=== PATIENT | female | born 1945 | race African-American/Black ===

== ENCOUNTER 2017-11-22 18:18 | Inpatient (IN) | payer OTHER, MEDICAID ==
[~2017-11-22] VITALS: Ht 162.6 cm; Wt 122.5 kg
--- NOTE | 2017-11-22 18:38 | Emergency Room Report ---
History of Present Illness General Chief Complaint: Altered Level of Consciousness Source: Patient, EMS, Caregiver Present Illness HPI 72-year-old female presents with questionable altered mental status from home Caregiver states she is usually alert and oriented 3, earlier today she noted that she was more altered than usual States frequent urinary tract infections, has indwelling Barrios catheter patient Herself knows her name, birthdate and day of week She denies any pain Caregiver denies that patient has been vomiting, having diarrhea, or cough Allergies: Coded Allergies: SULFA (SULFONAMIDE ANTIBIOTICS) (Verified Allergy, Unknown, 11/22/17) Patient History Past Medical History: see triage record, old chart reviewed Past Surgical History: none Pertinent Family History: none Social History: Denies: smoking, alcohol use, drug use Now: No Immunizations: UTD Reviewed Nursing Documentation: PMH: Agreed, PSxH: Agreed Nursing Documentation-PMH Past Medical History: No History, Except For Hx Cardiac Problems: Yes - CHF Hx Diabetes: Yes Review of Systems All Other Systems: negative except mentioned in HPI Physical Exam Vital Signs Date Time Temp Pulse Resp B/P (MAP) Pulse Ox O2 Delivery O2 Flow Rate FiO2 11/22/17 18:14 100.9 143 20 176/106 95 Room Air 100.9 Sp02 EP Interpretation: reviewed, normal General Appearance: normal inspection, well appearing, no apparent distress, alert, GCS 15, non-toxic, obese Head: normocephalic, atraumatic Eyes: bilateral eye PERRL, bilateral eye EOMI ENT: normal ENT inspection, hearing grossly normal, normal pharynx, no angioedema, normal voice, TMs + canals normal, uvula midline, moist mucus membranes Neck: normal inspection, full range of motion, supple, thyroid normal, no meningismus, no bony tend Respiratory: normal inspection, lungs clear, normal breath sounds, no rhonchi, no respiratory distress, no retraction, no accessory muscle use, no wheezing, speaking full sentences Cardiovascular #1: regular rate, rhythm, no edema, no JVD, normal capillary refill Gastrointestinal: normal inspection, normal bowel sounds, non tender, soft, no mass, no peritonitis, non-distended, no guarding, no hernia, no pulsatile mass Genitourinary: no CVA tenderness, other - Indwelling Barrios, clear urine Musculoskeletal: normal inspection, back normal, normal range of motion, no calf tenderness, pelvis stable, Alba's Sign negative Neurologic: normal inspection, alert, oriented x3, responsive, 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, motor strength/tone normal, cerebellar normal, normal gait, speech normal Psychiatric: normal inspection, judgement/insight normal, mood/affect normal, no suicidal/homicidal ideation, no delusions Skin: normal inspection, normal color, no rash Lymphatic: normal inspection, no adenopathy Medical Decision Making Diagnostic Impression: Primary Impression: Altered level of consciousness Additional Impressions: Sepsis Qualified Codes: A41.9 - Sepsis, unspecified organism UTI (urinary tract infection) Qualified Codes: T83.511A - Infection and inflammatory reaction due to indwelling urethral catheter, initial encounter; N39.0 - Urinary tract infection , site not specified ER Course 72-year-old female with sepsis, tachycardia and fever Likely source is urine given indwelling catheter Barrios Empiric antibiotics given Blood and urine cultures are pending Labs: No leuks. H&h stable. Initial CMP hemolyzed, needs repeat, nitrite positive UTI Endorsed to Dr Quiroz, [facility] insurance Telemetry bed, 922pm EKG Diagnostic Results Rate: tachycardiac Rhythm: NSR ST Segments: no acute changes ASA given to the pt in ED: No Rhythm Strip Diag. Results EP Interpretation: yes Rate: 140 Rhythm: NSR, no PVC's, no ectopy Chest X-Ray Diagnostic Results Chest X-Ray Diagnostic Results : Chest X-Ray Ordered: Yes # of Views/Limited/Complete: 1 View Indication: Other - Sepsis EP Interpretation: Yes Interpretation: no consolidation, no effusion, no pneumothorax, no acute cardiopulmonary disease Impression: No acute disease Electronically Signed by: Dr Michi Garcia MD Last Vital Signs Date Time Temp Pulse Resp B/P (MAP) Pulse Ox O2 Delivery O2 Flow Rate FiO2 11/22/17 18:14 100.9 143 20 176/106 95 Room Air 100.9 Status: improved Disposition: ADMITTED INPATIENT Condition: Serious MICHI GARCIA M.D. Nov 22, 2017 18:38
[2017-11-22] MEDS ORDERED: Piperacillin/Tazobactam 3.375 GM in NS 110 ML IVPB ONE (18:45)
[2017-11-22] MEDS ORDERED: BACLOFEN10 MG ORAL (18:48)
[2017-11-22] MEDS ORDERED: TIZANIDINE HCL4 MG ORAL (18:48)
[2017-11-22] MEDS ORDERED: METFORMIN HCL500 M1 ORAL (18:48)
[2017-11-22] MEDS ORDERED: LOVASTATIN10 MG ORAL (18:48)
[2017-11-22] MEDS ORDERED: PRILOSEC2.5 MG ORAL (18:48)
[2017-11-22] MEDS ORDERED: FUROSEMIDE20 M1 ORAL (18:48)
[2017-11-22 19:30] VITALS: BP 181/73
[2017-11-22] MEDS ORDERED: Zosyn 3.375gm inj ONE (20:09)
[2017-11-22 20:11] LABS: HEMATOCRIT 49.6 % (37.0-47.0); HEMOGLOBIN 16.3 G/DL (12.0-16.0); MEAN CORPUSCULAR VOLUME 87 FL (80-99); PLATELET COUNT 193 K/UL (150-450); RED BLOOD COUNT 5.72 M/UL (4.20-5.40); WHITE BLOOD COUNT 7.4 K/UL (4.8-10.8)
[2017-11-22 20:54] LABS: APPEARANCE,URINE SLIGHTLY CLOUDY; BILIRUBIN, URINE NEGATIVE (NEGATIVE); COLOR,URINE YELLOW; GLUCOSE, URINE (UA) NEGATIVE (NEGATIVE); KETONES,URINE NEGATIVE (NEGATIVE); LEUKOCYTE ESTERASE ,URINE 3+ (NEGATIVE); NITRITE,URINE POSITIVE (NEGATIVE); PH,URINE 5 (4.5-8.0); PROTEIN,URINE 3+ (NEGATIVE); UROBILINOGEN,URINE 1 MG/DL (0.0-1.0)
[2017-11-22 21:13] VITALS: BP 110/57
[2017-11-22 22:13] VITALS: BP 99/49
[2017-11-22] MEDS ORDERED: Vancomycin 1.5 GM/D5W 250ML IVPB ONE (22:45)
[2017-11-22 23:05] VITALS: BP 90/60
[2017-11-22] MEDS: Acetaminophen 650 MG SUPP RECTAL PRN (23:26)
[2017-11-23 02:42] LABS: ANION GAP 11 mmol/L (5-15); BLOOD UREA NITROGEN 22 mg/dL (7-18); CALCIUM 8.4 MG/DL (8.5-10.1); CARBON DIOXIDE 24 MMOL/L (21-32); CHLORIDE 96 MMOL/L (98-107); CREATININE 1.2 MG/DL (0.55-1.30); POTASSIUM 3.6 MMOL/L (3.5-5.1); SODIUM 131 MMOL/L (136-145)
[2017-11-23 02:55] LABS: ALANINE AMINOTRANSFERASE 39 U/L (12-78); ALBUMIN/GLOBULIN RATIO 0.4 (1.0-2.7); ALKALINE PHOSPHATASE 155 U/L (46-116); ASPARTATE AMINO TRANSFERASE 36 U/L (15-37); CKMB < 0.5 NG/ML (0.0-3.6)
[2017-11-23 04:00] VITALS: BP 101/62
[2017-11-23] MEDS ORDERED: Zosyn 3.375gm inj ONE (05:59)
[2017-11-23] MEDS: Piperacillin/Tazobactam 3.375 GM in NS 110 ML IVPB SCH ×3 (06:09→21:56)
[2017-11-23 08:00] VITALS: BP 101/55
--- NOTE | 2017-11-23 10:27 | Diagnostic Imaging Report ---
. Indication: Shortness of breath Technique: One view of the chest Comparison: none Findings: Body habitus limits evaluation. There is equivocal retrocardiac consolidation. The remainder of the lungs and pleural spaces are clear. The heart size is upper limits of normal. The aorta is tortuous calcified Impression: Equivocal retrocardiac consolidation. Correlate with clinical findings No acute process otherwise
--- NOTE | 2017-11-23 10:45 | History & Physical ---
History and Physical History & Physicial dict AMS MS chr suprapubic cath, poss UTI T 102, 10-15 WBC in UA, normal WBC S tach, poss AMI plan abx cardiology, neuro called echo CT angio chest US abd re alk phos elevation Robb Quiroz MD Nov 23, 2017 10:45
[2017-11-23] MEDS: NovoLOG Insulin Flexpen SUBQ SCH ×3 (11:27→21:24)
[2017-11-23 12:00] VITALS: BP 128/74
[2017-11-23] MEDS: metFORMIN 500mg tab ORAL SCH ×2 (12:00→18:00)
--- NOTE | 2017-11-23 13:15 | Neurology Progress Note ---
Objective Physical Exam Last Vital Signs Date Time Temp Pulse Resp B/P (MAP) Pulse Ox O2 Delivery O2 Flow Rate FiO2 11/23/17 12:00 98.6 123 22 128/74 100 Nasal Cannula 3.0 98.6 11/23/17 11:20 32 Laboratory Tests Test 11/22/17 20:00 11/22/17 20:10 11/23/17 02:20 11/23/17 11:17 White Blood Count 7.4 K/UL (4.8-10.8) Red Blood Count 5.72 M/UL (4.20-5.40) H Hemoglobin 16.3 G/DL (12.0-16.0) H Hematocrit 49.6 % (37.0-47.0) H Mean Corpuscular Volume 87 FL (80-99) Mean Corpuscular Hemoglobin 28.5 PG (27.0-31.0) Mean Corpuscular Hemoglobin Concent 32.8 G/DL (32.0-36.0) Red Cell Distribution Width 14.0 % (11.6-14.8) Platelet Count 193 K/UL (150-450) Mean Platelet Volume 10.9 FL (6.5-10.1) H Neutrophils (%) (Auto) % (45.0-75.0) Lymphocytes (%) (Auto) % (20.0-45.0) Monocytes (%) (Auto) % (1.0-10.0) Eosinophils (%) (Auto) % (0.0-3.0) Basophils (%) (Auto) % (0.0-2.0) Differential Total Cells Counted 100 Neutrophils % (Manual) 64 % (45-75) Lymphocytes % (Manual) 13 % (20-45) L Monocytes % (Manual) 9 % (1-10) Eosinophils % (Manual) 0 % (0-3) Basophils % (Manual) 0 % (0-2) Band Neutrophils 14 % (0-8) H Platelet Estimate Adequate Platelet Morphology Normal Red Blood Cell Morphology Normal Urine Color Yellow Urine Appearance Slightly cloudy Urine pH 5 (4.5-8.0) Urine Specific Priddy 1.015 (1.005-1.035) Urine Protein 3+ (NEGATIVE) H Urine Glucose (UA) Negative (NEGATIVE) Urine Ketones Negative (NEGATIVE) Urine Occult Blood 5+ (NEGATIVE) H Urine Nitrite Positive (NEGATIVE) H Urine Bilirubin Negative (NEGATIVE) Urine Urobilinogen 1 MG/DL (0.0-1.0) H Urine Leukocyte Esterase 3+ (NEGATIVE) H Urine RBC 5-10 /HPF (0 - 2) H Urine WBC 10-15 /HPF (0 - 2) H Urine Squamous Epithelial Cells Few /LPF (NONE/OCC) Urine Amorphous Sediment Few /LPF (NONE) H Urine Bacteria Moderate /HPF (NONE) H Sodium Level 131 MMOL/L (136-145) L Potassium Level 3.6 MMOL/L (3.5-5.1) Chloride Level 96 MMOL/L (98-107) L Carbon Dioxide Level 24 MMOL/L (21-32) Anion Gap 11 mmol/L (5-15) Blood Urea Nitrogen 22 mg/dL (7-18) H Creatinine 1.2 MG/DL (0.55-1.30) Estimat Glomerular Filtration Rate 53.8 mL/min (>60) Glucose Level 215 MG/DL (74-106) H Calcium Level 8.4 MG/DL (8.5-10.1) L Total Bilirubin 1.0 MG/DL (0.2-1.0) Aspartate Amino Transf (AST/SGOT) 36 U/L (15-37) Alanine Aminotransferase (ALT/SGPT) 39 U/L (12-78) Alkaline Phosphatase 155 U/L (46-116) H Creatine Kinase MB < 0.5 NG/ML (0.0-3.6) Troponin I 0.024 ng/mL (0.000-0.056) Total Protein 7.0 G/DL (6.4-8.2) Albumin 2.0 G/DL (3.4-5.0) L Globulin 5.0 g/dL Albumin/Globulin Ratio 0.4 (1.0-2.7) L Arterial Blood pH 7.388 (7.350-7.450) Arterial Blood Partial Pressure CO2 42.7 mmHg (35.0-45.0) Arterial Blood Partial Pressure O2 88.5 mmHg (75.0-100.0) Arterial Blood HCO3 25.2 mmol/L (22.0-26.0) Arterial Blood Oxygen Saturation 95.9 % (92.0-98.0) Arterial Blood Base Excess 0 Juve Test Positive Test 3/20/18 12:05 Troponin I 0.231 ng/mL (0.000-0.056) Impression/Recommendations Problems: (1) Sepsis (2) Multiple sclerosis (3) Obesities, morbid (4) Tachycardia Status: unchanged Recommendations #[id number] WALDO AUGUST Nov 23, 2017 13:15
--- NOTE | 2017-11-23 14:19 | Diagnostic Imaging Report ---
Indication: Abnormal liver function tests and abnormal renal function tests Technique: Lugo-scale and duplex images of the upper abdomen were obtained Comparison: Findings: Gallbladder demonstrates a gallstone. Gallbladder wall is borderline thickened, measuring just over 3 mm thick, but the gallbladder is underdistended. Sonographic Montana's sign is negative. Common bile duct measures 5 mm in diameter. No intrahepatic biliary ductal dilatation. Liver demonstrates normal echogenicity, no focal abnormality. It is mildly enlarged. There is a 14 mm cyst in the inferior right hepatic lobe. Portal vein and hepatic veins are patent. Pancreas is unremarkable. Spleen is unremarkable. Left kidney measures 15 cm in length. Right kidney measures 12 cm length. Both kidneys demonstrate normal echogenicity. There is no hydronephrosis. Left kidney demonstrates a 9 mm upper pole cyst. Echogenic foci in the left renal sinus, stones versus artifacts . Abdominal aorta is partially obscured by bowel gas, visualized portions are non-aneurysmal . Impression: Cholelithiasis. Borderline thickened gallbladder wall, probably an artifact of under distention but the possibility of acute cholecystitis should be considered. Consider nuclear medicine hepatobiliary scanning for further evaluation if there is high clinical suspicion Negative for dilated ducts Borderline hepatomegaly Large left kidney, significance uncertain. Prominent left renal sinus echoes, could indicate stones versus artifacts Incidental finding of left renal cyst Note nonvisualization of portions of the abdominal aorta
[2017-11-23] MEDS ORDERED: Lidocaine 1% Plain 30 ml INJ ONE ×2 (14:45→15:15)
[2017-11-23] MEDS ORDERED: Heparin 2000 units/Ns 1000ml INJ ONE ×2 (14:45→15:15)
[2017-11-23 16:00] VITALS: BP 123/62
--- NOTE | 2017-11-23 16:43 | Diagnostic Imaging Report ---
Indications: Needs long-term IV access Technique: Procedure performed at bedside. Procedural timeout performed. Ultrasound confirms patent compressible left basilic vein. Total sterile technique, including sterile probe cover and sterile gel, sterile gloves, hand hygiene, hat, mask,, sterile gown, large sterile drape, and preparation with 2% chlorhexidine utilized. Local anesthesia with 1% lidocaine. Under real-time ultrasound guidance, puncture basilic vein using 21-gauge needle, passage 0.018 guidewire, exchange for 5 Albanian peel-away sheath. 5 Albanian Bard dual-lumen power PICC cut to 43 cm. It was inserted through the peel-away sheath. Peel-away sheath and guidewire removed. Catheter fixed to the skin. Both catheter ports aspirated and flushed. Patient tolerated procedure well, without immediate complication. Followup chest x-ray obtained, documents catheter tip position at the cavoatrial junction Impression: Successful bedside placement of left arm PICC under sonographic guidance, as described above.
--- NOTE | 2017-11-23 17:45 | History and Physical Report ---
DATE OF ADMISSION: 11/22/2017 HISTORY OF PRESENT ILLNESS: The patient is a 72-year-old woman who is admitted from home when the caregiver found her to be more lethargic than usual after changing her suprapubic catheter. She was seen in the emergency department and found to have a few white cells in the urine, she did have temperature to 102 degrees, and tachycardia. She was given antibiotics and admission was arranged. PAST MEDICAL HISTORY: This is limited, but records at [facility] were reviewed. She has history of multiple sclerosis and neurogenic bladder with chronic suprapubic catheter. She has morbid obesity, quadriplegia, hypertension, hyperlipidemia, diabetes type 2, colon polyps, and anemia. She had colonoscopy in 2013. She does not drink or smoke. ALLERGIES: Sulfonamides. MEDICATIONS: Baclofen, Lasix, lovastatin, metformin, omeprazole, and tizanidine. PHYSICAL EXAMINATION: GENERAL: The patient is lethargic and dysarthric. She is morbidly obese. VITAL SIGNS: Shows sinus tachycardia at 151, blood pressure is 90/60. HEENT: Head is normocephalic. NECK: No jugular venous distention. CHEST: Clear. CARDIAC: Rhythm is regular. Tachycardia. ABDOMEN: Soft and nontender. EXTREMITIES: No edema. GENITOURINARY: Suprapubic catheter is in place. SKIN: Shows crusting on the dependent areas. LABORATORY AND DIAGNOSTIC DATA: The hemogram shows white count is normal, hemoglobin is 16.3, and platelets are normal. Chemistry shows sodium 131, glucose 215, calcium 8.4, albumin 2.0, alkaline phosphatase 155. Urine shows 10 to 15 white cells with positive nitrites and occult blood. EKG shows sinus tachycardia and possible anterior NV. IMPRESSIONS: 1. Altered mental status with history of MS. 2. Fever and possible sepsis with few white cells in the urine and in a patient with chronic suprapubic catheter. 3. Multiple sclerosis. 4. Sinus tachycardia with abnormal EKG, possible acute NV. 5. Diabetes. 6. Hyponatremia. 7. Neurogenic bladder. 8. Hypertension. 9. Hyperlipidemia. PLAN: The patient will be seen by Cardiology. We will get serial troponins and an echocardiogram. Antibiotics will be continued. Neurology consultation will be requested. Robb Nolen M.D. DR: NICOLE JOB#: [id number] CC: Missy Landrum M.D. ; FAX#: [phone] ROBB NOLEN M.D.; FAX#: [phone]
--- NOTE | 2017-11-23 18:21 | Cardiology Report ---
APPROVED REPORT EXAM: Two-dimensional and M-mode echocardiogram with Doppler and color Doppler. INDICATION Tachycardia M-Mode DIMENSIONS IVSd1.1 (0.7-1.1cm)Left Atrium (MM)3.9 (1.6-4.0cm) LVDd4.8 (3.5-5.6cm)Aortic Root2.9 (2.0-3.7cm) PWd1.2 (0.7-1.1cm)Aortic Cusp Exc.1.7 (1.5-2.0cm) LVDs3.1 (2.5-4.0cm) PWs1.5 cm Normal left ventricular chamber size, systolic function and wall motion. Left ventricular ejection fraction estimated to be 60-65%. No evidence of left ventricular hypertrophy. Trivial posterior pericardial effusion. Mild Bi-atrial enlargement by 2D. Aortic vavle leaflets appear thickened with adequate cusp excursion. Thickened mitral valve leaflets with normal excursion. Mild mitral annulus and aortic root calcification. Pulmonic valve not well visualized. Normal tricuspid valve structure. IVC is normal in size minimal collapse with respiration indicate increased RA pressure. A color flow and spectral Doppler study was performed and revealed: No aortic regurgitation. No mitral regurgitation. Mitral diastolic velocities suggest reduced left ventricular relaxation c/w diastolic dysfunction grade 1. Moderate tricuspid regurgitation. Tricuspid systolic velocities suggests peak right ventricular systolic pressure of 45-50 mmHg Consistent with mild pulmonary hypertension.
[2017-11-23] MEDS ORDERED: Albuterol/Ipratropium 3ml neb HHN PRN (18:30)
--- NOTE | 2017-11-23 18:33 | Cardiology Report ---
APPROVED REPORT EKG Measurement Heart [id number] NC [id number] [id number] Sinus tachycardia Left axis deviation Possible Anterior infarct, age undetermined T wave abnormality, consider lateral ischemia Abnormal ECG
[2017-11-23 20:00] VITALS: BP 104/52
[2017-11-23] MEDS ORDERED: Dyna-Hex 2% Top Sol 2oz TOPIC SCH (20:00)
[2017-11-23] MEDS: Dyna-Hex 2% Top Sol 2oz TOPIC SCH (21:21)
[2017-11-23] MEDS: Heparin 5000 units/ml inj SUBQ SCH (21:22)
--- NOTE | 2017-11-23 23:15 | Consultation ---
DATE OF CONSULTATION: 11/23/2017 NEUROLOGICAL CONSULTATION CONSULTING PHYSICIAN: Leopoldo Lynne M.D. REQUESTING PHYSICIAN: Robb Quiroz M.D. HISTORY OF PRESENT ILLNESS: This is a 72-year-old female seen in neurological consultation to evaluate new onset of changes in mental status. It is known that the patient has many years' history of multiple sclerosis apparently end-stage and she is fully bedridden, but her baseline included also being alert and oriented x3, but this changed in the last day when she started to develop increasing confusion, suspected to have infection, and brought to this hospital. On admission, the patient was able to give her name, , and day of the week. Temperature 100.9 degrees, heart rate 143, and blood pressure 176/106. Imaging studies included chest x-ray revealing equivocal retrocardiac consolidation. Her lab work included CBC study with elevated RBC at 5.72, hemoglobin 16.3, hematocrit 49.6, and 14 bands. Urinalysis, 10 to 15 wbc's, 3+ leukocyte esterase, and 3+ protein. Her chemistry panel with sodium down to 121, chloride 96, BUN 22, and blood sugar 215. Calcium 8.4. Troponin initially normal and later elevated at 0.231. Albumin 2.0. Following admission until present, the patient was somewhat confused, disoriented, obtunded, although in the last few hours she became more awake. Diagnostic studies now included also 2D echocardiogram with no mural thrombi noted, left ventricular ejection fraction estimated at 60% to 65% without evidence of left ventricular hypertrophy. PAST MEDICAL HISTORY: The patient has history of chronic multiple sclerosis, bedridden, chronic suprapubic catheter with recurrent UTI, history of diabetes, morbid obesity, and CHF. MEDICATIONS: Treatment prior to admission included baclofen, furosemide, lovastatin, metformin, omeprazole, and Zanaflex. ALLERGIES: Sulfa drugs. FAMILY HISTORY: Unavailable. SOCIAL HISTORY: No evidence of alcohol or drug abuse. REVIEW OF SYMPTOMS: This was limited due to the patient's condition. She was indicating being weak, unable to move around. PHYSICAL EXAMINATION: GENERAL: This is a well-developed, morbidly obese female, not in acute distress. VITAL SIGNS: Heart rate now 123, blood pressure 122/74. HEENT: Head normocephalic. There is no evidence of trauma. Eyes, ears, and throat are clear. NECK: Supple. No meningeal signs. MUSCULOSKELETAL: Puffiness of both hands and feet. Peripheral pulses 1+ and symmetric. No deformities noted. MENTAL STATUS: The patient is alert. She is able to follow simple commands. Her speech is very dysarthric, very hard to understand, slow, limited verbal responses. CRANIAL NERVE II: Pupils are 3 mm, responding to light and accommodation. There is right eye exotropia. Extraocular movement of left was normal and on the right, inner aspect limitation. Fundi unable to visualize due to the patient's status. CRANIAL NERVE V: Normal corneal responses. CRANIAL NERVE VII: No facial asymmetry. CRANIAL NERVE VIII: Normal hearing. CRANIAL NERVES IX THROUGH XII: Tongue is in midline. Symmetric palate elevation. The patient reportedly able to eat without dysphagia. MOTOR EXAMINATION: Diffuse rigidity in all extremities with no spontaneous movement, there is some wiggling, able to wiggle hands and feet. Deep tendon reflexes depressed bilaterally. Plantar response is mute. SENSORY EXAMINATION: Normal to pin stimulation as she was responding to pin in both upper and lower extremities. IMPRESSION: 1. Multiple sclerosis, advanced. 2. Toxic metabolic encephalopathy due to underlying infection. 3. Morbid obesity. 4. Urosepsis. RECOMMENDATIONS: 1. The patient to continue with IV fluids and antibiotics. 2. Presence of sinus tachycardia will be addressed by Cardiology. 3. The patient to remain on her current treatment including muscle relaxants. She is not a candidate for any immunomodulation treatment. 4. For any signs of progression, we will need additional diagnostic studies including MRI of the brain with and without contrast to assess presence of acute demyelination. Thank you for allowing me to see this interesting patient in neurological consultation. Leopoldo Lynne M.D. DR: BISI JOB#: [id number] CC:
[2017-11-24] VITALS: BP 106/51
[2017-11-24] MEDS: Vancomycin 1250mg/D5W 250ml IVPB SCH ×2 (00:13→23:18)
--- NOTE | 2017-11-24 01:00 | Consultation ---
DATE OF CONSULTATION: 11/23/2017 CARDIOLOGY CONSULTATION CONSULTING PHYSICIAN: Tyler Harley M.D. REQUESTING PHYSICIAN: Robb Quiroz M.D. REASON FOR CONSULTATION: Hypotension and elevated troponin level. HISTORY OF PRESENT ILLNESS: This 72-year-old female lives at home with a caregiver. She has a suprapubic catheter that was being changed. Today, she was found to be increasingly withdrawn and lethargic from her baseline and brought to the emergency room. On arrival, she was febrile to 102 degrees with tachycardia noted and dropping blood pressure following presentation. Antibiotics, IV fluids, and hospitalization were initiated. The patient continued to have low range blood pressure readings as well as an elevated troponin level this morning. Historical data is limited from patient, however, records are reviewed from [facility] hospitalization previously. PAST MEDICAL HISTORY: Multiple sclerosis, neurogenic bladder with suprapubic catheter, quadriplegia, hypertension, hyperlipidemia, colon polyposis, chronic anemia, type 2 diabetes mellitus, and chronic kidney disease. MEDICATIONS: Prior to admission reviewed and reconciled. ALLERGIES: Sulfa. SOCIAL HISTORY: Not obtainable. FAMILY HISTORY: Not known. REVIEW OF SYSTEMS: Other than data noted above is not obtainable. PHYSICAL EXAMINATION: GENERAL: She is lethargic, dysarthric. She is moderately obese. VITAL SIGNS: In the emergency room, blood pressure 99/49 with heart rate 153, respiratory rate 24, and temperature of 102.2 degrees. Now, blood pressure 101/55, heart rate 121, respiratory rate 22, and temperature 98.1 degrees. Monitored rhythm is sinus tachycardia. Oxygen saturation on 3 liters nasal cannula 96% to 97%. HEENT: Normocephalic and atraumatic. Conjunctivae are pink. Oropharynx clear. Mucous membranes dry. NECK: Supple. No gross jugular venous distention. LUNGS: With clear breath sounds. Diminished at bases. CARDIAC: Regular rhythm. Rapid rate. Normal S1 and S2 with no murmur, rub or gallop. ABDOMEN: Soft, nontender, and obese. EXTREMITIES: Revealed no edema. Distal muscle atrophy is noted. Suprapubic catheter site is without any bleeding or drainage and there is some poor skin turgor noted. LABORATORY AND DIAGNOSTIC DATA: EKG, sinus tachycardia and poor R-wave progression, suggesting possible prior anterior infarction. Albumin is 2. Sodium 131, potassium 3.6, bicarbonate 24, BUN 22 and creatinine 1.2. Troponin is 0.024 in the emergency room. Repeat is 0.231 and third troponin is 0.429. White count 7.4 and hemoglobin 16.3. IMPRESSION: 1. Sepsis. 2. Toxic and metabolic encephalopathies. 3. Shock. 4. Advanced multiple sclerosis. 5. Acute myocardial ischemia and possible [id number] myocardial infarction, precipitated by hypoperfusion. 6. Severe protein-calorie malnutrition. 7. Neurogenic bladder with suprapubic catheter. PLAN: 1. Cardiac monitoring. 2. Serial troponins. 3. Broad-spectrum antibiotics. 4. Volume support. 5. DVT and stress ulcer prophylaxis. 6. Pressors if inadequate response to IV fluid challenges. 7. Anti-platelet therapy. 8. Consider beta-blockers once blood pressure parameters have stabilized. Tyler Harley M.D. DR: ELVIRA JOB#: [id number] CC:
[2017-11-24 04:00] VITALS: BP 120/61
[2017-11-24] MEDS: NovoLOG Insulin Flexpen SUBQ SCH ×4 (06:30→21:09)
[2017-11-24] MEDS: Piperacillin/Tazobactam 3.375 GM in NS 110 ML IVPB SCH ×3 (06:55→21:10)
[2017-11-24 08:00] VITALS: BP 123/50
[2017-11-24 08:03] LABS: HEMATOCRIT 32.5 % (37.0-47.0); MEAN CORPUSCULAR VOLUME 87 FL (80-99); PLATELET COUNT 116 K/UL (150-450); RED BLOOD COUNT 3.73 M/UL (4.20-5.40); RED CELL DISTRIBUTION WIDTH 14.2 % (11.6-14.8)
[2017-11-24 08:04] LABS: ALANINE AMINOTRANSFERASE 25 U/L (12-78); ALBUMIN 1.6 G/DL (3.4-5.0); ALBUMIN/GLOBULIN RATIO 0.4 (1.0-2.7); ALKALINE PHOSPHATASE 119 U/L (46-116); ANION GAP 10 mmol/L (5-15); ASPARTATE AMINO TRANSFERASE 23 U/L (15-37); BILIRUBIN,TOTAL 0.4 MG/DL (0.2-1.0); BLOOD UREA NITROGEN 21 mg/dL (7-18); CALCIUM 7.8 MG/DL (8.5-10.1); CARBON DIOXIDE 25 MMOL/L (21-32); CHLORIDE 97 MMOL/L (98-107); CREATININE 0.8 MG/DL (0.55-1.30); POTASSIUM 3.1 MMOL/L (3.5-5.1); SODIUM 132 MMOL/L (136-145)
[2017-11-24] MEDS: BETASERON SUBQ SCH ×2 (09:00→11:29)
--- NOTE | 2017-11-24 09:19 | Diagnostic Imaging Report ---
ndication: Shortness of breath Technique: IV administration nonionic contrast. Spiral acquisitions obtained from the lung bases to the lung apices. Multiplanar and 3-D reconstructions were generated. Total dose length product 1467.34 mGycm. CTDIvol(s) 49.39 mGy. Dose reduction achieved using automated exposure control Comparison: none Findings: There is considerable image degradation due to motion artifact. No definite intraluminal filling defects or other findings to suggest acute pulmonary embolus demonstrated, although evaluation for such is quite limited. There is no evidence of thoracic aortic aneurysm or dissection. Pulmonary arteries are somewhat ectatic but not frankly dilated. No right ventricular dilatation demonstrated. The lungs demonstrate bullous changes, predominantly of the upper lobes. There is near complete atelectasis of the left lower lobe. However, no definite airway obstructive lesion is demonstrated. Suspect that this is due to compression by pleural fluid and enlarged heart. There are small bilateral pleural effusions. Atelectatic changes of the posterior right upper lobe and minimal compressive atelectatic changes of right lung base are also noted. The heart is enlarged. No pericardial effusion. The esophagus is diffusely markedly dilated. Dilatation extends to the gastroesophageal junction, where there is a small sliding-type hiatal hernia. No evidence of obstructive lesion demonstrated. There is a left arm PICC in good position. No mediastinal or hilar mass or adenopathy. No axillary or chest wall mass or adenopathy. Visualized thyroid is unremarkable. The bones are unremarkable other than mild degenerative changes The included upper abdominal anatomy is grossly unremarkable. Impression: Limited exam, due to motion artifact. No evidence of gross large vessel central pulmonary embolus or the thoracic vascular pathology Bilateral pleural effusions Compressive atelectasis of most of the left lower lobe. There focal areas of atelectasis bilaterally. Evidence of bullous COPD Patulous fluid-filled esophagus without definite downstream obstructive lesion, dilatation possibly on the basis of age-related changes. Small hiatal hernia This agrees with the preliminary interpretation provided overnight by [facility] telerad[facility] service. The CT scanner at [facility] is accredited by the [employer] and the scans are performed using protocols designed to limit radiation exposure to as low as reasonably achievable to attain images of sufficient resolution adequate for diagnostic evaluation.
[2017-11-24] MEDS: Aspirin Baby 81mg ORAL SCH (09:39)
[2017-11-24] MEDS: Heparin 5000 units/ml inj SUBQ SCH ×2 (09:41→21:00)
[2017-11-24 12:00] VITALS: BP 125/52
--- NOTE | 2017-11-24 13:11 | Pulmonology Progress Note ---
Assessment/Plan Assessment/Plan 1. Altered mental status with history of MS. 2. Fever and possible sepsis with chronic suprapubic catheter. 3. Multiple sclerosis. 4. Sinus tachycardia with abnormal EKG, possible acute [place]. 5. Diabetes. 6. Hyponatremia. 7. Neurogenic bladder. 8. Hypertension. 9. Hyperlipidemia. HR better No PEs echo pending temps down cont abx BC neg; UC pdg Subjective ROS Limited/Unobtainable: Yes Allergies: Coded Allergies: SULFA (SULFONAMIDE ANTIBIOTICS) (Verified Allergy, Unknown, 11/22/17) Objective Last 24 Hour Vital Signs Date Time Temp Pulse Resp B/P (MAP) Pulse Ox O2 Delivery O2 Flow Rate FiO2 11/24/17 12:00 98.4 101 19 125/52 100 Nasal Cannula 3.0 98.4 11/24/17 08:00 101 11/24/17 08:00 98.1 19 123/50 99 Nasal Cannula 3.0 98.1 11/24/17 06:50 95 Nasal Cannula 3.0 32 11/24/17 06:50 Nasal Cannula 3.0 32 11/24/17 06:50 104 18 Nasal Cannula 3.0 32 11/24/17 04:00 98.1 105 24 120/61 95 Nasal Cannula 3.0 98.1 11/24/17 04:00 109 11/24/17 00:26 106 11/24/17 00:00 98.9 105 20 106/51 98 Nasal Cannula 3.0 98.9 11/23/17 20:00 93 Nasal Cannula 3.0 32 11/23/17 20:00 98.7 107 20 104/52 97 Nasal Cannula 3.0 98.7 11/23/17 20:00 Nasal Cannula 3.0 32 11/23/17 16:00 99.0 123 22 123/62 97 Nasal Cannula 3.0 99.0 11/23/17 15:32 117 Intake and Output 11/23/17 11/24/17 19:00 07:00 Intake Total 2020.0 ml Output Total 1450 ml 1000 ml Balance 570.0 ml -1000 ml Intake IV Total 2020.0 ml Output Urine Total 1450 ml 1000 ml General Appearance: no acute distress HEENT: atraumatic Respiratory/Chest: lungs clear Cardiovascular: tachycardia Microbiology Date/Time Source Procedure Growth Status 11/22/17 20:15 Blood Blood Culture - Preliminary NO GROWTH AFTER 24 HOURS Resulted 11/22/17 20:00 Blood Blood Culture - Preliminary NO GROWTH AFTER 24 HOURS Resulted 11/22/17 20:10 Urine,Clean Catch Urine Culture - Preliminary Gram Negative Bacillus 1 Resulted Laboratory Tests 11/23/17 20:00: Troponin I 0.429H 11/24/17 05:45: Troponin I 0.191H, White Blood Count 20.0#H, Red Blood Count 3.73L, Hemoglobin 11.0#L, Hematocrit 32.5#L, Mean Corpuscular Volume 87, Mean Corpuscular Hemoglobin 29.5, Mean Corpuscular Hemoglobin Concent 33.9, Red Cell Distribution Width 14.2, Platelet Count 116L, Mean Platelet Volume 11.0H, Neutrophils (%) (Auto) , Lymphocytes (%) (Auto) , Monocytes (%) (Auto) , Eosinophils (%) (Auto) , Basophils (%) (Auto) , Differential Total Cells Counted 100, Neutrophils % (Manual) 90H, Lymphocytes % (Manual) 8L, Monocytes % (Manual) 2, Eosinophils % (Manual) 0, Basophils % (Manual) 0, Band Neutrophils 0 , Platelet Estimate DecreasedL, Platelet Morphology Normal, Anisocytosis 1+, Sodium Level 132L, Potassium Level 3.1L, Chloride Level 97L, Carbon Dioxide Level 25, Anion Gap 10, Blood Urea Nitrogen 21H, Creatinine 0.8, Estimat Glomerular Filtration Rate > 60, Glucose Level 115#H, Calcium Level 7.8L, Total Bilirubin 0.4, Aspartate Amino Transf (AST/SGOT) 23, Alanine Aminotransferase ( ALT/SGPT) 25, Alkaline Phosphatase 119H, Total Protein 6.0L, Albumin 1.6L, Globulin 4.4, Albumin/Globulin Ratio 0.4L Current Medications Medications (Trade) Dose Ordered Sig/Mj Route PRN Reason Start Time Stop Time Status Last Admin Dose Admin Acetaminophen (Tylenol) 650 mg Q4H PRN RECTAL Mild Pain (Pain Scale 1-3) 11/22/17 22:30 12/22/17 22:29 11/22/17 23:26 Albuterol/ Ipratropium (Albuterol/ Ipratropium) 3 ml QIDPRN PRN HHN Shortness of Breath 11/23/17 18:30 11/28/17 18:29 Aspirin (ASA) 81 mg DAILY ORAL 11/24/17 09:00 12/24/17 08:59 11/24/17 09:39 Baclofen (Lioresal) 10 mg THREE TIMES A DAY ORAL 11/23/17 09:00 12/23/17 08:59 11/24/17 09:38 Chlorhexidine Gluconate (Lizzie-Hex 2%) 1 applic DAILY@2000 TOPIC 11/23/17 20:00 12/23/17 19:59 11/23/17 21:21 Dextrose (Dextrose 50%) STAT PRN IV Hypoglycemia 11/22/17 23:45 12/22/17 23:44 Heparin Sodium (Porcine) (Heparin 5000 units/ml) 5,000 units EVERY 12 HOURS SUBQ 11/23/17 21:00 12/23/17 20:59 11/24/17 09:41 Insulin Aspart (NovoLOG) BEFORE MEALS AND HS SUBQ 11/23/17 11:30 12/23/17 11:29 11/23/17 21:24 Metformin HCl (Glucophage) 500 mg BID ORAL 11/26/17 09:00 12/26/17 08:59 Ondansetron HCl (Zofran) 4 mg Q4HR PRN IVP Nausea & Vomiting 11/22/17 22:30 12/22/17 22:29 11/23/17 22:07 Patient Own Medication (Patient's Own Med) 1 ea QOD SUBQ 11/24/17 09:00 12/24/17 08:59 11/24/17 11:29 Piperacillin Sod/ Tazobactam Sod 3.375 gm/Sodium Chloride 110 ml @ 27.5 mls/hr EVERY 8 HOURS IVPB 11/23/17 06:00 11/28/17 05:59 11/24/17 06:55 Sodium Chloride 1,000 ml @ 150 mls/hr Q6H40M IV 11/22/17 22:30 12/22/17 22:29 11/24/17 07:50 Vancomycin HCl (Vanco rx to dose) 1 ea DAILY PRN MISC Per rx protocol 11/22/17 22:30 12/22/17 22:29 Vancomycin HCl/ Dextrose 250 ml @ 166.667 mls/hr Q24H IVPB 11/24/17 00:00 11/29/17 00:00 11/24/17 00:13 Robb Quiroz MD Nov 24, 2017 13:11
[2017-11-24 16:00] VITALS: BP 145/71
--- NOTE | 2017-11-24 17:01 | Cardiology Report ---
APPROVED REPORT EKG Measurement Heart [id number] CT [id number] Sinus tachycardia Otherwise normal ECG
[2017-11-24] MEDS: NS w/KCl 20mEq 1,000 ML IV SCH (17:33)
[2017-11-24 20:00] VITALS: BP 131/64
[2017-11-24] MEDS: Dyna-Hex 2% Top Sol 2oz TOPIC SCH (21:07)
[2017-11-25] VITALS: BP 111/47
--- NOTE | 2017-11-25 01:31 | Progress Note ---
DATE: 11/24/2017 CARDIOLOGY PROGRESS NOTE SUBJECTIVE: The patient is alert, interactive, and less withdrawn. Vitals, blood pressure 125/52, pulse 101, respirations 19, and afebrile. Monitor, sinus tachycardia. Diagnostic studies to date, CT angiogram of the chest negative for pulmonary emboli. Echocardiogram with normal ejection fraction, trace pericardial fluid, diastolic dysfunction, and moderate pulmonary hypertension with moderate tricuspid regurgitation. White count is 20, hemoglobin 11. Sodium 132, potassium 3.1, bicarbonate 25, BUN 21, and creatinine 0.8. Troponin is peaked at 0.429 and is now 0.174 with albumin 1.6. IMPRESSION: 1. Acute myocardial infarction precipitated by hypoperfusion due to septic shock. 2. Sepsis with shock, recovering. 3. Secondary sinus tachycardia. 4. Hypokalemia. 5. Multiple sclerosis with immobility. 6. Toxic and metabolic encephalopathy. 7. Severe protein-calorie malnutrition. 8. Neurogenic bladder with suprapubic catheter. PLAN: 1. Antibiotics. 2. Await cultures. 3. Continue cardiac monitoring. 4. Serial troponins. 5. Volume resuscitation by IV route. 6. Potassium replacement. 7. Beta-blockers once blood pressure parameters stabilize. 8. Anti-platelet therapy. 9. DVT prophylaxis. Tyler Harley M.D. DR: PACO JOB#: [id number] CC:
[2017-11-25] MEDS: NS w/KCl 20mEq 1,000 ML IV SCH ×2 (01:56→10:03)
[2017-11-25] MEDS: Acetaminophen 650 MG SUPP RECTAL PRN (02:02)
[2017-11-25 04:00] VITALS: BP 92/44
[2017-11-25] MEDS: Piperacillin/Tazobactam 3.375 GM in NS 110 ML IVPB SCH ×3 (05:23→22:00)
[2017-11-25] MEDS: NovoLOG Insulin Flexpen SUBQ SCH ×4 (05:40→20:28)
[2017-11-25 05:44] LABS: ANION GAP 7 mmol/L (5-15); BLOOD UREA NITROGEN 16 mg/dL (7-18); CALCIUM 8.5 MG/DL (8.5-10.1); CARBON DIOXIDE 29 MMOL/L (21-32); CHLORIDE 100 MMOL/L (98-107); CREATININE 0.7 MG/DL (0.55-1.30); POTASSIUM 3.7 MMOL/L (3.5-5.1); SODIUM 136 MMOL/L (136-145)
[2017-11-25 05:49] LABS: HEMATOCRIT 33.1 % (37.0-47.0); HEMOGLOBIN 11.2 G/DL (12.0-16.0); MEAN CORPUSCULAR VOLUME 88 FL (80-99); PLATELET COUNT 134 K/UL (150-450); RED BLOOD COUNT 3.76 M/UL (4.20-5.40); RED CELL DISTRIBUTION WIDTH 14.5 % (11.6-14.8); WHITE BLOOD COUNT 15.5 K/UL (4.8-10.8)
[2017-11-25 07:45] VITALS: BP 124/65
[2017-11-25] MEDS: Aspirin Baby 81mg ORAL SCH (10:00)
[2017-11-25] MEDS: Heparin 5000 units/ml inj SUBQ SCH ×2 (10:02→20:25)
[2017-11-25 12:01] VITALS: BP 125/72
--- NOTE | 2017-11-25 15:39 | Pulmonology Progress Note ---
Assessment/Plan Assessment/Plan 1. Altered mental status with history of MS. 2. Fever and possible sepsis with chronic suprapubic catheter. 3. Multiple sclerosis. 4. Sinus tachycardia with abnormal EKG, possible acute [place]. 5. Diabetes. 6. Hyponatremia. 7. Neurogenic bladder. 8. Hypertension. 9. Hyperlipidemia. more alert, responsive echo with normal ejection fraction, trace pericardial fluid, diastolic dysfunction, and moderate pulmonary hypertension with moderate tricuspid regurgitation. no fever; 4/ BC with GNR UC with e coli S Zosyn cont abx tried to call son and dtr x many with no luck so far disc w RN, cardiology Subjective Constitutional: Denies: fever, chills Respiratory: Denies: shortness of breath Allergies: Coded Allergies: SULFA (SULFONAMIDE ANTIBIOTICS) (Verified Allergy, Unknown, 11/22/17) Objective Last 24 Hour Vital Signs Date Time Temp Pulse Resp B/P (MAP) Pulse Ox O2 Delivery O2 Flow Rate FiO2 11/25/17 12:01 97.5 101 19 125/72 100 Nasal Cannula 3.0 97.5 11/25/17 12:00 96 11/25/17 07:45 98.2 103 20 124/65 97 Nasal Cannula 3.0 98.2 11/25/17 07:36 100 11/25/17 07:32 104 18 Nasal Cannula 3.0 32 11/25/17 07:31 98 Nasal Cannula 3.0 32 11/25/17 07:31 Nasal Cannula 3.0 32 11/25/17 04:00 110 11/25/17 04:00 98.2 100 19 92/44 98 Nasal Cannula 3.0 98.2 11/25/17 00:00 97.1 103 20 111/47 99 Nasal Cannula 3.0 97.1 11/25/17 00:00 109 11/24/17 20:00 116 11/24/17 20:00 98.4 114 19 131/64 96 Nasal Cannula 3.0 98.4 11/24/17 19:24 88 18 Nasal Cannula 3.0 32 11/24/17 19:24 Nasal Cannula 3.0 32 11/24/17 19:24 97 Nasal Cannula 3.0 32 11/24/17 16:00 110 11/24/17 16:00 97.6 117 21 145/71 97 Nasal Cannula 3.0 97.6 Intake and Output 11/24/17 11/25/17 19:00 07:00 Intake Total 1667.6 ml 2034.584 ml Output Total 450 ml 1000 ml Balance 1217.6 ml 1034.584 ml Intake Oral 300 ml IV Total 1667.6 ml 1734.584 ml Output Urine Total 450 ml 1000 ml # Voids 1 Objective morbidly obese General Appearance: no acute distress HEENT: normocephalic Respiratory/Chest: lungs clear Cardiovascular: normal rate Abdomen: soft, non tender Extremities: other - edema 1+ Microbiology Date/Time Source Procedure Growth Status 11/22/17 20:15 Blood Blood Culture - Preliminary Gram Negative Bacillus 1 Resulted 11/22/17 20:00 Blood Blood Culture - Preliminary Gram Negative Bacillus 1 Resulted 11/24/17 18:00 Urine,Suprapubic Urine Culture - Preliminary Gram Negative Bacillus 1 Resulted 11/22/17 20:10 Urine,Clean Catch Urine Culture - Final Escherichia Coli Complete 11/23/17 17:20 Sacral Wound Gram Stain - Final Resulted 11/23/17 17:20 Wound Culture - Preliminary Gram Negative Bacillus 1 Resulted Laboratory Tests 11/24/17 17:35: Troponin I 0.174H 11/25/17 04:00: Troponin I 0.127H, White Blood Count 15.5H, Red Blood Count 3.76L, Hemoglobin 11.2L, Hematocrit 33.1L, Mean Corpuscular Volume 88, Mean Corpuscular Hemoglobin 29.8, Mean Corpuscular Hemoglobin Concent 33.9, Red Cell Distribution Width 14.5, Platelet Count 134L, Mean Platelet Volume 10.0, Neutrophils (%) (Auto) , Lymphocytes (%) (Auto) , Monocytes (%) (Auto) , Eosinophils (%) (Auto) , Basophils (%) (Auto) , Differential Total Cells Counted 100, Neutrophils % (Manual) 88H, Lymphocytes % (Manual) 4L, Monocytes % (Manual) 6, Eosinophils % (Manual) 0, Basophils % (Manual) 0, Band Neutrophils 2 , Platelet Estimate DecreasedL, Platelet Morphology Normal, Zunilda Cells 1+, Schistocytes 1+, Sodium Level 136, Potassium Level 3.7, Chloride Level 100, Carbon Dioxide Level 29, Anion Gap 7, Blood Urea Nitrogen 16, Creatinine 0.7, Estimat Glomerular Filtration Rate > 60, Glucose Level 130H, Calcium Level 8.5 11/25/17 12:00: Troponin I 0.097H Current Medications Medications (Trade) Dose Ordered Sig/Mj Route PRN Reason Start Time Stop Time Status Last Admin Dose Admin Acetaminophen (Tylenol) 650 mg Q4H PRN RECTAL Mild Pain (Pain Scale 1-3) 11/22/17 22:30 12/22/17 22:29 11/25/17 02:02 Albuterol/ Ipratropium (Albuterol/ Ipratropium) 3 ml QIDPRN PRN HHN Shortness of Breath 11/23/17 18:30 11/28/17 18:29 Aspirin (ASA) 81 mg DAILY ORAL 11/24/17 09:00 12/24/17 08:59 11/25/17 10:00 Baclofen (Lioresal) 10 mg THREE TIMES A DAY ORAL 11/23/17 09:00 12/23/17 08:59 11/25/17 14:03 Chlorhexidine Gluconate (Lizzie-Hex 2%) 1 applic DAILY@2000 TOPIC 11/23/17 20:00 12/23/17 19:59 11/24/17 21:07 Dextrose (Dextrose 50%) STAT PRN IV Hypoglycemia 11/22/17 23:45 12/22/17 23:44 Heparin Sodium (Porcine) (Heparin 5000 units/ml) 5,000 units EVERY 12 HOURS SUBQ 11/23/17 21:00 12/23/17 20:59 11/25/17 10:02 Insulin Aspart (NovoLOG) BEFORE MEALS AND HS SUBQ 11/23/17 11:30 12/23/17 11:29 11/25/17 05:40 Metformin HCl (Glucophage) 500 mg BID ORAL 11/26/17 09:00 12/26/17 08:59 Ondansetron HCl (Zofran) 4 mg Q4HR PRN IVP Nausea & Vomiting 11/22/17 22:30 12/22/17 22:29 11/23/17 22:07 Patient Own Medication (Patient's Own Med) 1 ea QOD SUBQ 11/24/17 09:00 12/24/17 08:59 11/24/17 11:29 Piperacillin Sod/ Tazobactam Sod 3.375 gm/Sodium Chloride 110 ml @ 27.5 mls/hr EVERY 8 HOURS IVPB 11/23/17 06:00 11/28/17 05:59 11/25/17 14:13 Sodium Chloride 1,000 ml @ 75 mls/hr [id number] IV 11/25/17 18:00 12/25/17 17:59 Vancomycin HCl (Vanco rx to dose) 1 ea DAILY PRN MISC Per rx protocol 11/22/17 22:30 12/22/17 22:29 Vancomycin HCl/ Dextrose 250 ml @ 166.667 mls/hr Q24H IVPB 11/24/17 00:00 11/29/17 00:00 11/24/17 23:18 Robb uQiroz MD Nov 25, 2017 15:39
[2017-11-25 16:00] VITALS: BP 158/74
[2017-11-25] MEDS ORDERED: NS w/KCl 20mEq 1,000 ML IV SCH (18:00)
[2017-11-25 20:00] VITALS: BP 144/74
--- NOTE | 2017-11-25 20:16 | Wound Care Consultation ---
Wound Assessment Wound Assessment #1: Wound Number: 1 Wound Present on Admission: Yes New Wound: No Status Change of Wound: No Wound Location Body Site: other - Sacrococcygeal Wound Type: pressure ulcer Dony Test: Does not Dony Pressure Ulcer Stage: III - scattered Wound Thickness: Full Thickness Wound Length: 6.5 Wound Width: 5.5 Wound Depth: 0.2 Percent of Wound [place]/Red: 100 Wound Drainage Description: Serosanguineous Wound Drainage Amount: Moderate Wound Drainage Odor: None/Absent Tissue Surrounding Wound: full thickness scar tissue Wound General Appearance: Reddened, Draining Wound Assessment #2: Wound Number: 2 Wound Present on Admission: Yes New Wound: No Status Change of Wound: No Wound Location Body Site Modif: right Wound Location Body Site: heel Wound Type: pressure ulcer Dony Test: Does not Dony Pressure Ulcer Stage: Deep Tissue Injury Wound Thickness: Full Thickness Wound Length: 2.0 Wound Width: 2.0 Wound Depth: utd Percent of Wound Purple/Maroon: 100 Wound Drainage Amount: None Wound Drainage Odor: None/Absent Tissue Surrounding Wound: Intact Wound General Appearance: Reddened - purple/maroon Wound Comment #1 Sacrococcygeal area with scattered stage III pressure ulcer. Surrounding skin with full thickness scar tissue. At risk for further skin breakdown #2 Right heel DTI pressure ulcer Recommendation -Local wound care per protocol -Keep clean and dry -Offload both heels -Heel protector on both heels -Low air loss mattress -Optimize nutrition -Turn and reposition -Assess and f/u accordingly for any changes SHAILA ALBA RN Nov 25, 2017 20:16
[2017-11-25] MEDS: Dyna-Hex 2% Top Sol 2oz TOPIC SCH (20:19)
--- NOTE | 2017-11-25 23:31 | Progress Note ---
DATE: 11/25/2017 CARDIOLOGY PROGRESS NOTE SUBJECTIVE: The patient is more alert and interactive. Monitored rhythm, sinus. No respiratory distress. Blood cultures are positive with gram-negative rods. PHYSICAL EXAMINATION: VITAL SIGNS: Blood pressure 125/72, respirations 19, pulse 101, and afebrile. HEENT: Oropharynx clear. NECK: Supple. LUNGS: Clear. CARDIAC: Regular rhythm and rate. Normal S1, S2. No new murmur. ABDOMEN: Soft. EXTREMITIES: No edema. DIAGNOSTIC DATA: Echocardiogram as previously noted with moderate tricuspid regurgitation and pulmonary hypertension with normal ejection fraction. IMPRESSION: 1. Urinary tract infection with sepsis and bacteremia, suspected shock, recovering due to above. 2. Chronic suprapubic catheter. 3. Multiple sclerosis secondary sinus tachycardia. 4. Non-ST elevation myocardial infarction precipitated by hypoperfusion in the setting of septic shock. 5. Severe protein-calorie malnutrition. PLAN: 1. Await final cultures and antibiotics per Infectious Disease protection consultant. 2. Volume resuscitation adjusted. 3. Hold beta-blockers until more stable hemodynamics. 4. Continue anti-platelet therapy. 5. DVT prophylaxis. Missy Landrum JOB#: [id number] CC:
[2017-11-26] VITALS: BP 132/69
[2017-11-26 04:00] VITALS: BP 132/68
[2017-11-26 05:40] LABS: BASOPHILS % (AUTO) 1.1 % (0.0-2.0); EOSINOPHILS % (AUTO) 0.8 % (0.0-3.0); HEMATOCRIT 35.7 % (37.0-47.0); HEMOGLOBIN 11.6 G/DL (12.0-16.0); LYMPHOCYTES % (AUTO) 7.4 % (20.0-45.0); MEAN CORPUSCULAR VOLUME 88 FL (80-99); MONOCYTES % (AUTO) 9.3 % (1.0-10.0); NEUTROPHILS % (AUTO) 81.5 % (45.0-75.0); PLATELET COUNT 147 K/UL (150-450); RED BLOOD COUNT 4.07 M/UL (4.20-5.40); RED CELL DISTRIBUTION WIDTH 14.7 % (11.6-14.8); WHITE BLOOD COUNT 11.2 K/UL (4.8-10.8)
[2017-11-26 05:55] LABS: ALANINE AMINOTRANSFERASE 33 U/L (12-78); ALBUMIN 1.6 G/DL (3.4-5.0); ALBUMIN/GLOBULIN RATIO 0.4 (1.0-2.7); ALKALINE PHOSPHATASE 164 U/L (46-116); ANION GAP 4 mmol/L (5-15); ASPARTATE AMINO TRANSFERASE 39 U/L (15-37); BILIRUBIN,TOTAL 0.5 MG/DL (0.2-1.0); BLOOD UREA NITROGEN 14 mg/dL (7-18); CALCIUM 8.3 MG/DL (8.5-10.1); CARBON DIOXIDE 32 MMOL/L (21-32); CHLORIDE 103 MMOL/L (98-107); CREATININE 0.6 MG/DL (0.55-1.30); POTASSIUM 4.3 MMOL/L (3.5-5.1); SODIUM 139 MMOL/L (136-145)
[2017-11-26] MEDS: Piperacillin/Tazobactam 3.375 GM in NS 110 ML IVPB SCH ×3 (06:00→21:34)
[2017-11-26] MEDS: NovoLOG Insulin Flexpen SUBQ SCH ×4 (06:30→21:00)
[2017-11-26 08:00] VITALS: BP 140/71
[2017-11-26] MEDS: Aspirin Baby 81mg ORAL SCH (08:41)
[2017-11-26] MEDS: Heparin 5000 units/ml inj SUBQ SCH ×2 (08:42→21:35)
[2017-11-26] MEDS: metFORMIN 500mg tab ORAL SCH ×2 (08:42→17:44)
[2017-11-26] MEDS: BETASERON SUBQ SCH ×2 (09:00→12:02)
[2017-11-26 12:00] VITALS: BP 153/75
--- NOTE | 2017-11-26 14:25 | Pulmonology Progress Note ---
Assessment/Plan Assessment/Plan 1. Altered mental status with history of MS. 2. Fever and sepsis due to e coli bacteremia 3. Multiple sclerosis 4. Sinus tachycardia with abnormal EKG, possible acute [place]. 5. Diabetes. 6. Hyponatremia. 7. Neurogenic bladder with chronic suprapubic catheter 8. Hypertension. 9. Hyperlipidemia. Alert, responsive / BC with e coli UC with e coli S Zosyn cont abx disc w RN, [facility] plan mt home Mon Subjective Constitutional: Denies: fever Allergies: Coded Allergies: SULFA (SULFONAMIDE ANTIBIOTICS) (Verified Allergy, Unknown, 11/22/17) Objective Last 24 Hour Vital Signs Date Time Temp Pulse Resp B/P (MAP) Pulse Ox O2 Delivery O2 Flow Rate FiO2 11/26/17 08:00 100 11/26/17 08:00 98.2 104 18 140/71 98 Nasal Cannula 3.0 98.2 11/26/17 06:39 Nasal Cannula 3.0 32 11/26/17 06:39 93 18 Nasal Cannula 3.0 32 11/26/17 06:39 97 Nasal Cannula 3.0 32 11/26/17 04:00 98.9 105 18 132/68 98 Nasal Cannula 3.0 98.9 11/26/17 04:00 105 11/26/17 00:00 103 11/26/17 00:00 98.0 103 18 132/69 98 Nasal Cannula 3.0 98.0 11/25/17 20:00 98.0 102 20 144/74 97 Nasal Cannula 3.0 98.0 11/25/17 19:30 111 11/25/17 16:00 110 11/25/17 16:00 97.7 110 19 158/74 97 Nasal Cannula 3.0 97.7 Intake and Output 11/25/17 11/26/17 19:00 07:00 Intake Total 922.5 ml 110.0 ml Output Total 950 ml 1600 ml Balance -27.5 ml -1490.0 ml Intake Oral 590 ml IV Total 332.5 ml 110.0 ml Output Urine Total 950 ml 1600 ml Objective morbidly obese, suprapubic cath General Appearance: no acute distress HEENT: atraumatic Respiratory/Chest: lungs clear Cardiovascular: normal rate Abdomen: soft, non tender Microbiology Date/Time Source Procedure Growth Status 11/24/17 18:00 Urine,Suprapubic Urine Culture - Final Escherichia Coli Complete 11/23/17 17:20 Sacral Wound Gram Stain - Final Resulted 11/23/17 17:20 Wound Culture - Preliminary Proteus Mirabilis Staphylococcus Aureus Strep Species, Gamma-Hemolytic Resulted Laboratory Tests 11/25/17 20:08: Troponin I 0.085H 11/26/17 04:15: Troponin I 0.092H, White Blood Count 11.2H, Red Blood Count 4.07L, Hemoglobin 11.6L, Hematocrit 35.7L, Mean Corpuscular Volume 88, Mean Corpuscular Hemoglobin 28.4, Mean Corpuscular Hemoglobin Concent 32.4, Red Cell Distribution Width 14.7, Platelet Count 147L, Mean Platelet Volume 9.2, Neutrophils (%) (Auto) 81.5H, Lymphocytes (%) (Auto) 7.4L, Monocytes (%) (Auto) 9.3, Eosinophils (%) (Auto) 0.8, Basophils (%) (Auto) 1.1, Sodium Level 139, Potassium Level 4.3, Chloride Level 103, Carbon Dioxide Level 32, Anion Gap 4L, Blood Urea Nitrogen 14, Creatinine 0.6, Estimat Glomerular Filtration Rate > 60 , Glucose Level 122H, Calcium Level 8.3L, Magnesium Level 1.6L, Total Bilirubin 0.5, Aspartate Amino Transf (AST/SGOT) 39H, Alanine Aminotransferase (ALT/SGPT) 33, Alkaline Phosphatase 164H, Pro-B-Type Natriuretic Peptide 2635H, Total Protein 5.5L, Albumin 1.6L, Globulin 3.9, Albumin/Globulin Ratio 0.4L Current Medications Medications (Trade) Dose Ordered Sig/Mj Route PRN Reason Start Time Stop Time Status Last Admin Dose Admin Acetaminophen (Tylenol) 650 mg Q4H PRN RECTAL Mild Pain (Pain Scale 1-3) 11/22/17 22:30 12/22/17 22:29 11/25/17 02:02 Albuterol/ Ipratropium (Albuterol/ Ipratropium) 3 ml QIDPRN PRN HHN Shortness of Breath 11/23/17 18:30 11/28/17 18:29 Aspirin (ASA) 81 mg DAILY ORAL 11/24/17 09:00 12/24/17 08:59 11/26/17 08:41 Baclofen (Lioresal) 10 mg THREE TIMES A DAY ORAL 11/23/17 09:00 12/23/17 08:59 11/26/17 13:23 Chlorhexidine Gluconate (Lizzie-Hex 2%) 1 applic DAILY@2000 TOPIC 11/23/17 20:00 12/23/17 19:59 11/25/17 20:19 Dextrose (Dextrose 50%) STAT PRN IV Hypoglycemia 11/22/17 23:45 12/22/17 23:44 Heparin Sodium (Porcine) (Heparin 5000 units/ml) 5,000 units EVERY 12 HOURS SUBQ 11/23/17 21:00 12/23/17 20:59 11/26/17 08:42 Insulin Aspart (NovoLOG) BEFORE MEALS AND HS SUBQ 11/23/17 11:30 12/23/17 11:29 11/25/17 20:28 Magnesium Hydroxide (Mom) 30 ml DAILYPRN PRN ORAL Constipation 11/26/17 14:30 12/26/17 14:29 UNV Magnesium Oxide (Mag-Ox 400mg) 400 mg DAILY ORAL 11/26/17 14:30 12/26/17 14:29 UNV Metformin HCl (Glucophage) 500 mg BID ORAL 11/26/17 09:00 12/26/17 08:59 11/26/17 08:42 Ondansetron HCl (Zofran) 4 mg Q4HR PRN IVP Nausea & Vomiting 11/22/17 22:30 12/22/17 22:29 11/25/17 20:20 Patient Own Medication (Patient's Own Med) 1 ea QOD SUBQ 11/24/17 09:00 12/24/17 08:59 11/26/17 12:02 Piperacillin Sod/ Tazobactam Sod 3.375 gm/Sodium Chloride 110 ml @ 27.5 mls/hr EVERY 8 HOURS IVPB 11/23/17 06:00 11/28/17 05:59 11/26/17 14:00 Robb Quiroz MD Nov 26, 2017 14:25
[2017-11-26] MEDS ORDERED: Milk of Magnesia 30ml Ud ORAL PRN (14:30)
[2017-11-26] MEDS: Magnesium Oxide 400mg tab ORAL SCH (14:47)
[2017-11-26 16:00] VITALS: BP 158/75
[2017-11-26 20:00] VITALS: BP 158/82
[2017-11-26] MEDS: Dyna-Hex 2% Top Sol 2oz TOPIC SCH (21:33)
[2017-11-27] VITALS (7 sets, daily range): BP systolic 128–160; BP diastolic 68–106
--- NOTE | 2017-11-27 05:45 | Progress Note ---
DATE: 11/26/2017 CARDIOLOGY PROGRESS NOTE SUBJECTIVE: The patient is alert and responsive. She remains on IV antibiotics for E. coli urinary tract infection with bacteremia. OBJECTIVE: VITAL SIGNS: Blood pressure 140/70, pulse 104, respiratory rate 18, and afebrile. Monitor, sinus tachycardia. LUNGS: Bilateral breath sounds. No wheezing. HEART: Regular rhythm. Rapid rate. Normal S1, S2 with a fourth heart sound. ABDOMEN: Soft. EXTREMITIES: No edema. IMPRESSION: 1. Sepsis with shock, recovered. 2. Acute myocardial infarction, precipitated by hypoperfusion. 3. Multiple sclerosis with immobility. 4. Escherichia coli urinary tract infection with bacteremia. 5. Neurogenic bladder with suprapubic catheter. 6. Hypertensive heart disease. 7. Secondary sinus tachycardia. PLAN: IV antibiotics. Add beta-memo. Antiplatelet therapy. Maintain adequate hydration. Tyler Harley M.D. DR: David JOB#: [id number] CC:
[2017-11-27] MEDS: Piperacillin/Tazobactam 3.375 GM in NS 110 ML IVPB SCH ×2 (06:04→14:28)
[2017-11-27] MEDS: NovoLOG Insulin Flexpen SUBQ SCH ×4 (06:11→22:44)
[2017-11-27] MEDS: Magnesium Oxide 400mg tab ORAL SCH (08:51)
[2017-11-27] MEDS: Aspirin Baby 81mg ORAL SCH (08:51)
[2017-11-27] MEDS: metFORMIN 500mg tab ORAL SCH ×2 (08:52→18:38)
[2017-11-27] MEDS: Heparin 5000 units/ml inj SUBQ SCH ×2 (08:54→21:45)
[2017-11-27] MEDS ORDERED: Metoprolol Succinate XL 25mg tab ORAL SCH (09:00)
[2017-11-27] MEDS ORDERED: Fleet's Enema 133ml RECTAL ONE (10:30)
--- NOTE | 2017-11-27 15:31 | General Progress Note ---
Assessment/Plan Problem List: (1) Obstipation ICD Codes: K59.00 - Constipation, unspecified SNOMED: 585113565 (2) UTI (urinary tract infection) ICD Codes: N39.0 - Urinary tract infection, site not specified SNOMED: 01034570 Qualifiers: Qualified Codes: T83.511A - Infection and inflammatory reaction due to indwelling urethral catheter, initial encounter; N39.0 - Urinary tract infection , site not specified (3) Sepsis ICD Codes: A41.9 - Sepsis, unspecified organism SNOMED: 20035516 Qualifiers: Qualified Codes: A41.9 - Sepsis, unspecified organism (4) Altered level of consciousness ICD Codes: R40.4 - Transient alteration of awareness SNOMED: 2466345 (5) Tachycardia ICD Codes: R00.0 - Tachycardia, unspecified SNOMED: 1325145 (6) Multiple sclerosis ICD Codes: G35 - Multiple sclerosis SNOMED: 99325532 (7) Obesities, morbid ICD Codes: E66.01 - Morbid (severe) obesity due to excess calories SNOMED: 406152253, 12859980362805 Assessment/Plan continue hydration, iv antibiotics, laxatives Subjective Constitutional: Reports: weakness HEENT: Reports: no symptoms Cardiovascular: Reports: no symptoms Respiratory: Reports: no symptoms Gastrointestinal/Abdominal: Reports: constipated, poor appetite Neurologic/Psychiatric: Reports: pre-existing deficit Endocrine: Reports: no symptoms Hematologic/Lymphatic: Reports: no symptoms Allergies: Coded Allergies: SULFA (SULFONAMIDE ANTIBIOTICS) (Verified Allergy, Unknown, 11/22/17) Objective Last 24 Hour Vital Signs Date Time Temp Pulse Resp B/P (MAP) Pulse Ox O2 Delivery O2 Flow Rate FiO2 11/27/17 12:00 98.1 101 18 149/68 95 Nasal Cannula 3.0 98.1 11/27/17 11:50 105 11/27/17 09:31 Nasal Cannula 3.0 32 11/27/17 09:31 96 Nasal Cannula 3.0 32 11/27/17 09:31 88 18 Nasal Cannula 3.0 32 11/27/17 08:52 85 134/77 11/27/17 08:00 104 11/27/17 08:00 97.7 85 18 134/77 95 Nasal Cannula 3.0 97.7 11/27/17 04:00 98.7 68 20 128/73 97 Nasal Cannula 3.0 98.7 11/27/17 03:34 104 11/27/17 00:00 99.0 112 22 153/74 95 Nasal Cannula 3.0 99.0 11/27/17 00:00 111 11/26/17 20:00 98.9 110 20 158/82 95 Nasal Cannula 3.0 98.9 11/26/17 20:00 111 11/26/17 19:01 Nasal Cannula 3.0 32 11/26/17 19:01 92 18 Nasal Cannula 3.0 32 11/26/17 19:01 97 Nasal Cannula 3.0 32 11/26/17 16:30 108 11/26/17 16:00 98.2 112 21 158/75 95 Nasal Cannula 3.0 98.2 Intake and Output 11/26/17 11/27/17 19:00 07:00 Intake Total 1192.5 ml 321.7 ml Output Total 600 ml 900 ml Balance 592.5 ml -578.3 ml Intake Oral 1000 ml 200 ml IV Total 192.5 ml 121.7 ml Output Urine Total 600 ml 900 ml Height (Feet): 5 Height (Inches): 4.00 Weight (Pounds): 286 General Appearance: no apparent distress, morbidly obese EENT: other - ptosis os Neck: normal alignment Cardiovascular: normal rate, regular rhythm Respiratory/Chest: lungs clear Abdomen: non tender 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
[2017-11-27] MEDS ORDERED: Miralax 17gm pkt ORAL SCH (16:30)
[2017-11-27] MEDS ORDERED: 1/2NS w/KCl 20mEq 1000ml 1,000 ML IV SCH (16:30)
[2017-11-27] MEDS ORDERED: Acetaminophen 650 MG SUPP RECTAL PRN (20:30)
[2017-11-27] MEDS ORDERED: Milk of Magnesia 30ml Ud ORAL PRN (21:00)
[2017-11-27] MEDS ORDERED: Albuterol/Ipratropium 3ml neb HHN PRN (21:00)
[2017-11-27] MEDS: 1/2NS w/KCl 20mEq 1000ml 1,000 ML IV SCH (21:09)
[2017-11-27] MEDS: Dyna-Hex 2% Top Sol 2oz TOPIC SCH (21:42)
--- NOTE | 2017-11-27 22:00 | Progress Note ---
DATE: 11/27/2017 CARDIOLOGY PROGRESS NOTE SUBJECTIVE: The patient is awake, alert, interactive, verbally responsive. She has no specific complaints. PHYSICAL EXAMINATION: VITAL SIGNS: Blood pressure 149/68, pulse 101, respiratory rate 18, afebrile. NECK: Supple. LUNGS: Clear. CARDIAC: Regular rhythm. Rapid rate. Normal S1 and S2 with no new murmur. ABDOMEN: Soft. EXTREMITIES: No edema. LABORATORY AND DIAGNOSTIC DATA: No new lab studies today. IMPRESSION: 1. Urinary tract infection with sepsis. 2. Recovered shock. 3. Metabolic and toxic encephalopathy. 4. Severe protein-calorie malnutrition. 5. E. coli bacteremia. 6. Hypomagnesemia. 7. Chronic ischemic heart disease. 8. Acute myocardial ischemia. 9. Multiple sclerosis. PLAN: 1. Antimicrobials. 2. IV magnesium. 3. Titrate beta-memo and antihypertensives. 4. Antiplatelet therapy long-term. 5. DVT prophylaxis. 6. Followup laboratory studies ordered. Tyler Harley M.D. DR: Ricardo JOB#: [id number] CC:
[2017-11-27] MEDS: Piperacillin/Tazobactam 3.375 GM in D5W 110 ML IVPB SCH (22:21)
[2017-11-28] VITALS (9 sets, daily range): BP systolic 147–184; BP diastolic 84–102
[2017-11-28] MEDS: NovoLOG Insulin Flexpen SUBQ SCH ×4 (06:19→21:21)
[2017-11-28] MEDS: Piperacillin/Tazobactam 3.375 GM in D5W 110 ML IVPB SCH ×3 (06:58→22:44)
[2017-11-28 07:21] LABS: BASOPHILS % (AUTO) 2.4 % (0.0-2.0); EOSINOPHILS % (AUTO) 1.7 % (0.0-3.0); HEMATOCRIT 32.9 % (37.0-47.0); HEMOGLOBIN 10.9 G/DL (12.0-16.0); LYMPHOCYTES % (AUTO) 9.6 % (20.0-45.0); MEAN CORPUSCULAR VOLUME 88 FL (80-99); MONOCYTES % (AUTO) 12.7 % (1.0-10.0); NEUTROPHILS % (AUTO) 73.5 % (45.0-75.0); PLATELET COUNT 243 K/UL (150-450); RED BLOOD COUNT 3.72 M/UL (4.20-5.40); RED CELL DISTRIBUTION WIDTH 14.6 % (11.6-14.8); WHITE BLOOD COUNT 9.6 K/UL (4.8-10.8)
[2017-11-28 07:50] LABS: ALANINE AMINOTRANSFERASE 37 U/L (12-78); ALBUMIN 1.6 G/DL (3.4-5.0); ALBUMIN/GLOBULIN RATIO 0.3 (1.0-2.7); ALKALINE PHOSPHATASE 168 U/L (46-116); ANION GAP 4 mmol/L (5-15); ASPARTATE AMINO TRANSFERASE 46 U/L (15-37); BILIRUBIN,TOTAL 0.4 MG/DL (0.2-1.0); BLOOD UREA NITROGEN 10 mg/dL (7-18); CALCIUM 8.6 MG/DL (8.5-10.1); CARBON DIOXIDE 34 MMOL/L (21-32); CHLORIDE 103 MMOL/L (98-107); CREATININE 0.5 MG/DL (0.55-1.30); POTASSIUM 4.4 MMOL/L (3.5-5.1); SODIUM 141 MMOL/L (136-145)
[2017-11-28] MEDS: Aspirin Baby 81mg ORAL SCH (08:24)
[2017-11-28] MEDS: Magnesium Oxide 400mg tab ORAL SCH (08:25)
[2017-11-28] MEDS: Miralax 17gm pkt ORAL SCH ×3 (08:25→17:18)
[2017-11-28] MEDS: metFORMIN 500mg tab ORAL SCH ×2 (08:25→17:21)
[2017-11-28] MEDS: BETASERON SUBQ SCH (08:26)
[2017-11-28] MEDS: Heparin 5000 units/ml inj SUBQ SCH ×2 (08:27→21:26)
[2017-11-28] MEDS ORDERED: Metoprolol Succinate XL 25mg tab ORAL SCH (09:00)
[2017-11-28] MEDS ORDERED: Tubing IV Secondary IV ONE ×3 (10:39→10:58)
[2017-11-28] MEDS ORDERED: NS 275ml ONE ×2 (10:39→10:55)
[2017-11-28] MEDS ORDERED: 1/2 NS 1000ml IV ONE (10:55)
[2017-11-28] MEDS ORDERED: D5W 275ml ONE (10:55)
--- NOTE | 2017-11-28 12:49 | General Progress Note ---
Assessment/Plan Problem List: (1) Obstipation ICD Codes: K59.00 - Constipation, unspecified SNOMED: 102129213 (2) UTI (urinary tract infection) ICD Codes: N39.0 - Urinary tract infection, site not specified SNOMED: 85536583 Qualifiers: Qualified Codes: T83.511A - Infection and inflammatory reaction due to indwelling urethral catheter, initial encounter; N39.0 - Urinary tract infection , site not specified (3) Sepsis ICD Codes: A41.9 - Sepsis, unspecified organism SNOMED: 33825176 Qualifiers: Qualified Codes: A41.9 - Sepsis, unspecified organism (4) Altered level of consciousness ICD Codes: R40.4 - Transient alteration of awareness SNOMED: 1470465 (5) Tachycardia ICD Codes: R00.0 - Tachycardia, unspecified SNOMED: 3641128 (6) Multiple sclerosis ICD Codes: G35 - Multiple sclerosis SNOMED: 55840388 (7) Obesities, morbid ICD Codes: E66.01 - Morbid (severe) obesity due to excess calories SNOMED: 145394000, 90777720024361 Assessment/Plan continue hydration, iv antibiotics, laxatives titrate bp meds Subjective Constitutional: Reports: weakness HEENT: Reports: other - ptosis Cardiovascular: Reports: no symptoms Respiratory: Reports: no symptoms Gastrointestinal/Abdominal: Reports: no symptoms Genitourinary: Reports: no symptoms Neurologic/Psychiatric: Reports: no symptoms Endocrine: Reports: no symptoms Hematologic/Lymphatic: Reports: no symptoms Allergies: Coded Allergies: SULFA (SULFONAMIDE ANTIBIOTICS) (Verified Allergy, Unknown, 11/22/17) Objective Last 24 Hour Vital Signs Date Time Temp Pulse Resp B/P (MAP) Pulse Ox O2 Delivery O2 Flow Rate FiO2 11/28/17 12:00 97.6 102 20 149/102 95 Nasal Cannula 2.0 97.6 11/28/17 08:25 94 157/101 11/28/17 08:00 98.1 94 20 157/101 94 Nasal Cannula 2.0 98.1 11/28/17 07:56 Nasal Cannula 3.0 32 11/28/17 07:56 98 20 Nasal Cannula 3.0 32 11/28/17 07:56 92 Nasal Cannula 3.0 32 11/28/17 05:14 176/84 11/28/17 04:00 96.0 99 20 184/95 96 Nasal Cannula 2.0 96.0 11/28/17 03:52 96.0 11/28/17 02:53 98.0 11/28/17 00:00 98.0 101 20 151/86 94 98.0 11/27/17 22:15 160/93 11/27/17 20:00 97.9 99 21 155/106 95 97.9 11/27/17 19:27 Nasal Cannula 3.0 32 11/27/17 19:27 86 20 Nasal Cannula 3.0 32 11/27/17 19:27 95 Nasal Cannula 3.0 32 11/27/17 16:00 98.1 101 20 148/83 93 Nasal Cannula 3.0 98.1 11/27/17 16:00 109 Intake and Output 11/27/17 11/28/17 19:00 07:00 Intake Total 400 ml 930.0 ml Output Total 1650 ml 2000 ml Balance -1250 ml -1070.0 ml Intake Oral 400 ml 420 ml IV Total 510.0 ml Output Urine Total 1650 ml 2000 ml # Bowel Movements 1 Laboratory Tests 11/28/17 05:00: White Blood Count 9.6, Red Blood Count 3.72L, Hemoglobin 10.9L, Hematocrit 32.9L , Mean Corpuscular Volume 88, Mean Corpuscular Hemoglobin 29.2, Mean Corpuscular Hemoglobin Concent 33.0, Red Cell Distribution Width 14.6, Platelet Count 243, Mean Platelet Volume 8.2, Neutrophils (%) (Auto) 73.5, Lymphocytes (% ) (Auto) 9.6L, Monocytes (%) (Auto) 12.7H, Eosinophils (%) (Auto) 1.7, Basophils (%) (Auto) 2.4H, Sodium Level 141, Potassium Level 4.4, Chloride Level 103, Carbon Dioxide Level 34H, Anion Gap 4L, Blood Urea Nitrogen 10, Creatinine 0.5L, Estimat Glomerular Filtration Rate > 60, Glucose Level 127H, Calcium Level 8.6, Total Bilirubin 0.4, Aspartate Amino Transf (AST/SGOT) 46H, Alanine Aminotransferase (ALT/SGPT) 37, Alkaline Phosphatase 168H, Pro-B-Type Natriuretic Peptide 2935H, Total Protein 6.4, Albumin 1.6L, Globulin 4.8, Albumin/Globulin Ratio 0.3L Height (Feet): 5 Height (Inches): 4.00 Weight (Pounds): 287 General Appearance: no apparent distress, alert EENT: other - ptosis Neck: normal alignment Cardiovascular: normal rate, regular rhythm Respiratory/Chest: lungs clear, normal breath sounds Abdomen: non tender, soft, no organomegaly Edema: 1+ Generalized Edema: trace edema 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
[2017-11-28] MEDS: 1/2NS w/KCl 20mEq 1000ml 1,000 ML IV SCH (17:19)
[2017-11-28] MEDS ORDERED: Ramipril 2.5mg cap ORAL SCH (18:00)
[2017-11-28] MEDS ORDERED: Ramipril 5mg cap ORAL SCH (18:00)
[2017-11-28] MEDS: Ramipril 2.5mg cap ORAL SCH (18:15)
[2017-11-28] MEDS: Dyna-Hex 2% Top Sol 2oz TOPIC SCH (21:18)
--- NOTE | 2017-11-29 00:45 | Progress Note ---
DATE: 11/28/2017 CARDIOLOGY PROGRESS NOTE SUBJECTIVE: The patient has rising blood pressure trend noted. She has been off medications since admission due to hypotension at that time. OBJECTIVE: VITAL SIGNS: Blood pressure 149/102, pulse 102, respirations 20, and afebrile. NECK: Supple. LUNGS: Clear. CARDIAC: Regular rhythm. Rapid rate. Normal S1 and S2 with a fourth heart sound. ABDOMEN: Soft. EXTREMITIES: With trace edema and muscle atrophy symmetrically. LABORATORY AND DIAGNOSTIC DATA: White count 9.6 and hemoglobin 10.9. Potassium 4.4, BUN 10, creatinine 0.5, and bicarbonate 34. Pro-natriuretic peptide 2900. Albumin 1.6. IMPRESSION: 1. Acute myocardial infarction. 2. Sepsis with shock. 3. Bacteremia. 4. Obesity. 5. Multiple sclerosis. 6. Hypertensive heart disease with rising blood pressure trend. PLAN: 1. Continue antimicrobials and antihypertensives. 2. Adjust IV fluids. Tyler Harley M.D. DR: Anai JOB#: [id number] CC:
[2017-11-29] MEDS: Piperacillin/Tazobactam 3.375 GM in D5W 110 ML IVPB SCH ×3 (05:19→22:13)
[2017-11-29] MEDS: NovoLOG Insulin Flexpen SUBQ SCH ×4 (06:34→21:00)
[2017-11-29 08:00] VITALS: BP 154/80
[2017-11-29] MEDS: metFORMIN 500mg tab ORAL SCH ×2 (09:21→17:50)
[2017-11-29] MEDS: Ramipril 2.5mg cap ORAL SCH ×2 (09:21→17:49)
[2017-11-29] MEDS: Metoprolol Succinate XL 50mg tab ORAL SCH (09:21)
[2017-11-29] MEDS: Miralax 17gm pkt ORAL SCH ×3 (09:21→17:50)
[2017-11-29] MEDS: Magnesium Oxide 400mg tab ORAL SCH (09:21)
[2017-11-29] MEDS: Heparin 5000 units/ml inj SUBQ SCH ×2 (09:23→21:27)
[2017-11-29] MEDS: Aspirin Baby 81mg ORAL SCH (09:27)
[2017-11-29 12:05] VITALS: BP 171/79
[2017-11-29] MEDS: 1/2NS w/KCl 20mEq 1000ml 1,000 ML IV SCH (12:28)
[2017-11-29 14:21] VITALS: BP 158/83
--- NOTE | 2017-11-29 14:52 | Wound Care Consultation ---
Wound Assessment Wound Assessment : Wound Number: 1 Wound Present on Admission: No New Wound: Yes Status Change of Wound: No Wound Location Body Site: abdominal fold - Left and right breast fold Wound Type: erosion Dony Test: Does not Dony Wound Thickness: Partial Thickness Percent of Wound Moriarty/Red: 100 Wound Drainage Amount: None Wound Drainage Odor: None/Absent Tissue Surrounding Wound: Erythemic Wound General Appearance: Reddened Wound Comment #1 Intertrigo on Breast folds and abdominal folds Recommendation -Local wound care per protocol -Keep clean and dry -Optimize nutrition -Assess and f/u accordingly for any changes SHAILA ALBA RN Nov 29, 2017 14:52
[2017-11-29] MEDS ORDERED: RAMIPRIL2.5 MG ORAL (15:10)
[2017-11-29] MEDS ORDERED: MIRALAX17 G2 ORAL (15:10)
[2017-11-29 16:00] VITALS: BP 196/109
[2017-11-29 16:43] VITALS: BP 172/89
--- NOTE | 2017-11-29 18:49 | General Progress Note ---
Assessment/Plan Problem List: (1) Obstipation ICD Codes: K59.00 - Constipation, unspecified SNOMED: 291325602 (2) UTI (urinary tract infection) ICD Codes: N39.0 - Urinary tract infection, site not specified SNOMED: 83311639 Qualifiers: Qualified Codes: T83.511A - Infection and inflammatory reaction due to indwelling urethral catheter, initial encounter; N39.0 - Urinary tract infection , site not specified (3) Sepsis ICD Codes: A41.9 - Sepsis, unspecified organism SNOMED: 30328732 Qualifiers: Qualified Codes: A41.9 - Sepsis, unspecified organism (4) Altered level of consciousness ICD Codes: R40.4 - Transient alteration of awareness SNOMED: 3808470 (5) Tachycardia ICD Codes: R00.0 - Tachycardia, unspecified SNOMED: 5208042 (6) Multiple sclerosis ICD Codes: G35 - Multiple sclerosis SNOMED: 50464013 (7) Obesities, morbid ICD Codes: E66.01 - Morbid (severe) obesity due to excess calories SNOMED: 604437768, 24435727016130 (8) Hypoxemia ICD Codes: R09.02 - Hypoxemia SNOMED: 525414060 Assessment/Plan continue iv antibiotics, laxatives titrate bp meds, hypoxemia on RA, cxr ordered , start lasix, hold discharge Subjective Constitutional: Reports: weakness HEENT: Reports: no symptoms Cardiovascular: Reports: no symptoms Respiratory: Reports: SOB at rest Gastrointestinal/Abdominal: Reports: no symptoms Genitourinary: Reports: incontinence Endocrine: Reports: no symptoms Hematologic/Lymphatic: Reports: no symptoms Allergies: Coded Allergies: SULFA (SULFONAMIDE ANTIBIOTICS) (Verified Allergy, Unknown, 11/22/17) Objective Last 24 Hour Vital Signs Date Time Temp Pulse Resp B/P (MAP) Pulse Ox O2 Delivery O2 Flow Rate FiO2 11/29/17 17:49 137/80 11/29/17 16:43 76 20 172/89 94 Nasal Cannula 4.0 11/29/17 16:00 97.7 78 22 196/109 80 Room Air 97.7 11/29/17 14:21 158/83 11/29/17 12:05 97.3 81 18 171/79 96 Nasal Cannula 2.0 97.3 11/29/17 09:21 95 154/80 11/29/17 09:21 154/80 11/29/17 08:00 97.0 95 20 154/80 95 Room Air 97.0 11/29/17 07:35 85 21 Nasal Cannula 3.0 32 11/29/17 07:35 99 Nasal Cannula 3.0 32 11/29/17 07:35 Nasal Cannula 3.0 32 11/29/17 04:50 98.2 11/29/17 03:51 98.2 11/29/17 01:30 98.2 11/29/17 00:31 98.2 11/28/17 22:55 93 147/89 Nasal Cannula 2.0 11/28/17 20:00 98.2 96 22 174/90 99 98.2 11/28/17 19:28 93 Nasal Cannula 3.0 32 11/28/17 19:28 Nasal Cannula 3.0 32 11/28/17 19:28 96 20 Nasal Cannula 3.0 32 Intake and Output 11/28/17 11/29/17 19:00 07:00 Intake Total 1020.0 ml 597.5 ml Output Total 2000 ml 1250 ml Balance -980.0 ml -652.5 ml Intake Oral 600 ml 360 ml IV Total 420.0 ml 237.5 ml Output Urine Total 2000 ml 1250 ml Height (Feet): 5 Height (Inches): 4.00 Weight (Pounds): 284 General Appearance: no apparent distress, morbidly obese EENT: normal ENT inspection Cardiovascular: normal rate, regular rhythm Respiratory/Chest: lungs clear Abdomen: soft Edema: mild edema Neurologic: motor weakness EUSEBIA COBB Nov 29, 2017 18:49
[2017-11-29] MEDS: HydrALAZINE 25mg tab ORAL SCH (19:03)
[2017-11-29 20:00] VITALS: BP 145/77
[2017-11-29] MEDS: Dyna-Hex 2% Top Sol 2oz TOPIC SCH (21:33)
[2017-11-30] MEDS: HydrALAZINE 25mg tab ORAL SCH
--- NOTE | 2017-11-30 02:01 | Progress Note ---
DATE: 11/29/2017 CARDIOLOGY PROGRESS NOTE SUBJECTIVE: Awake, alert, and in no distress. Blood pressure parameters continue to be labile and are quite elevated at times. No shortness of breath. OBJECTIVE: VITAL SIGNS: Blood pressure is 165/85 now, range of blood pressure is 137/81 to 96/109, heart rate 76, respiratory rate 18, and afebrile. NECK: Supple. LUNGS: Clear. CARDIAC: Regular rhythm and rate. Normal S1 and S2 with a fourth heart sound. ABDOMEN: Soft and nontender. EXTREMITIES: With no edema. IMPRESSION: 1. Bacteremia. 2. Urinary tract infection. 3. Gram-negative sepsis. 4. Hypoxia. 5. Multiple sclerosis. 6. Acute on chronic diastolic congestive heart failure. 7. Hypertensive urgency. PLAN: 1. Advance antihypertensives. 2. Diurese. 3. Optimize blood pressure control. 4. Continue antimicrobial therapy. Tyler Harley M.D. DR: CRISTIAN JOB#: [id number] CC:
[2017-11-30 04:00] VITALS: BP 142/72
[2017-11-30] MEDS: Piperacillin/Tazobactam 3.375 GM in D5W 110 ML IVPB SCH ×3 (05:25→22:51)
[2017-11-30] MEDS: HydrALAZINE 50mg tab ORAL SCH ×3 (05:37→17:17)
[2017-11-30] MEDS: NovoLOG Insulin Flexpen SUBQ SCH ×4 (06:30→20:28)
[2017-11-30 06:55] LABS: BASOPHILS % (AUTO) 0.4 % (0.0-2.0); EOSINOPHILS % (AUTO) 2.1 % (0.0-3.0); HEMATOCRIT 32.6 % (37.0-47.0); HEMOGLOBIN 10.7 G/DL (12.0-16.0); LYMPHOCYTES % (AUTO) 13.5 % (20.0-45.0); MEAN CORPUSCULAR VOLUME 88 FL (80-99); MONOCYTES % (AUTO) 4.3 % (1.0-10.0); NEUTROPHILS % (AUTO) 79.7 % (45.0-75.0); PLATELET COUNT 383 K/UL (150-450); RED CELL DISTRIBUTION WIDTH 14.3 % (11.6-14.8); WHITE BLOOD COUNT 10.2 K/UL (4.8-10.8)
[2017-11-30 07:08] LABS: ANION GAP 4 mmol/L (5-15); BLOOD UREA NITROGEN 9 mg/dL (7-18); CARBON DIOXIDE 36 MMOL/L (21-32); CHLORIDE 101 MMOL/L (98-107); CREATININE 0.5 MG/DL (0.55-1.30); POTASSIUM 4.8 MMOL/L (3.5-5.1); SODIUM 141 MMOL/L (136-145)
[2017-11-30 08:00] VITALS: BP 145/78
--- NOTE | 2017-11-30 09:04 | Pulmonology Progress Note ---
Assessment/Plan Assessment/Plan 1. Altered mental status with history of MS. 2. Fever and sepsis due to e coli bacteremia 3. Multiple sclerosis 4. Sinus tachycardia with abnormal EKG, possible acute [place]. 5. Diabetes. 6. Hyponatremia. 7. Neurogenic bladder with chronic suprapubic catheter 8. Hypertension. 9. Hyperlipidemia. 10. Hypoxemia She has a pleural effusion on CT chest but also bullous lung disease; will therefore not request thoracentesis. Her hypoxemia is multifactorial due to splinting, atelectasis and possible fluid vs pneumonia At this time best option would be to continue antibiotics; consider diuresis Will recommend to order home O2 on discharge Subjective Interval Events: Complaining of back pain; asking for medications; noted to be hypoxic on RA Constitutional: Reports: no symptoms HEENT: Repors: no symptoms Respiratory: Reports: shortness of breath Cardiovascular: Reports: no symptoms Gastrointestinal/Abdominal: Reports: no symptoms Genitourinary: Reports: no symptoms Neurologic: Reports: no symptoms Allergies: Coded Allergies: SULFA (SULFONAMIDE ANTIBIOTICS) (Verified Allergy, Unknown, 11/22/17) Objective Last 24 Hour Vital Signs Date Time Temp Pulse Resp B/P (MAP) Pulse Ox O2 Delivery O2 Flow Rate FiO2 11/30/17 08:00 98.6 89 15 145/78 95 98.6 11/30/17 05:40 Nasal Cannula 3.0 32 11/30/17 05:40 97 Nasal Cannula 3.0 32 11/30/17 05:40 92 20 Nasal Cannula 3.0 32 11/30/17 05:37 147/67 11/30/17 04:00 97.5 85 19 142/72 97 97.5 11/29/17 20:00 97.7 82 19 145/77 97 97.7 11/29/17 19:03 165/85 11/29/17 17:49 137/80 11/29/17 16:43 76 20 172/89 94 Nasal Cannula 4.0 11/29/17 16:00 97.7 78 22 196/109 80 Room Air 97.7 11/29/17 14:21 158/83 11/29/17 12:05 97.3 81 18 171/79 96 Nasal Cannula 2.0 97.3 11/29/17 09:21 95 154/80 11/29/17 09:21 154/80 Intake and Output 11/29/17 11/30/17 19:00 07:00 Intake Total 840 ml 497.5 ml Output Total 2500 ml 3000 ml Balance -1660 ml -2502.5 ml Intake Oral 840 ml 360 ml IV Total 137.5 ml Output Urine Total 2500 ml 3000 ml General Appearance: no acute distress HEENT: normocephalic Respiratory/Chest: chest wall non-tender, decreased breath sounds Cardiovascular: normal peripheral pulses Abdomen: normal bowel sounds Laboratory Tests 11/30/17 05:15: White Blood Count 10.2, Red Blood Count 3.70L, Hemoglobin 10.7L, Hematocrit 32.6L, Mean Corpuscular Volume 88, Mean Corpuscular Hemoglobin 29.0, Mean Corpuscular Hemoglobin Concent 32.9, Red Cell Distribution Width 14.3, Platelet Count 383, Mean Platelet Volume 8.0, Neutrophils (%) (Auto) 79.7H, Lymphocytes ( %) (Auto) 13.5L, Monocytes (%) (Auto) 4.3, Eosinophils (%) (Auto) 2.1, Basophils (%) (Auto) 0.4, Sodium Level 141, Potassium Level 4.8, Chloride Level 101, Carbon Dioxide Level 36H, Anion Gap 4L, Blood Urea Nitrogen 9, Creatinine 0.5L, Estimat Glomerular Filtration Rate > 60, Glucose Level 105, Calcium Level 8.0L Current Medications Medications (Trade) Dose Ordered Sig/Mj Route PRN Reason Start Time Stop Time Status Last Admin Dose Admin Acetaminophen (Tylenol) 650 mg Q4H PRN RECTAL Mild Pain (Pain Scale 1-3) 11/27/17 20:30 12/22/17 20:29 Acetaminophen (Tylenol) 650 mg Q6H PRN ORAL Mild Pain/Temp > 100.5 11/27/17 21:45 12/27/17 03:44 11/30/17 05:14 Albuterol/ Ipratropium (Albuterol/ Ipratropium) 3 ml Q6H PRN HHN Shortness of Breath 11/27/17 21:00 12/02/17 20:59 Aspirin (ASA) 81 mg DAILY ORAL 11/28/17 09:00 12/24/17 08:59 11/29/17 09:27 Baclofen (Lioresal) 10 mg THREE TIMES A DAY ORAL 11/28/17 09:00 12/23/17 08:59 11/29/17 17:50 Chlorhexidine Gluconate (Lizzie-Hex 2%) 1 applic DAILY@2000 TOPIC 11/27/17 21:00 12/27/17 20:59 11/29/17 21:33 Dextrose (Dextrose 50%) STAT PRN IV Hypoglycemia 11/27/17 21:00 12/22/17 20:59 Furosemide (Lasix) 40 mg EVERY 12 HOURS IV 11/29/17 21:00 12/29/17 20:59 11/29/17 22:13 Heparin Sodium (Porcine) (Heparin 5000 units/ml) 5,000 units EVERY 12 HOURS SUBQ 11/27/17 21:00 12/23/17 20:59 11/29/17 21:27 Hydralazine HCl (Apresoline) 50 mg Q6HR ORAL 11/30/17 06:00 12/30/17 05:59 11/30/17 05:37 Ibuprofen (Motrin) 600 mg Q8H PRN ORAL Moderate Pain (Pain Scale 4-6) 11/27/17 21:00 12/27/17 20:59 11/29/17 15:46 Insulin Aspart (NovoLOG) BEFORE MEALS AND HS SUBQ 11/27/17 22:00 12/23/17 21:59 11/29/17 17:45 Magnesium Hydroxide (Mom) 30 ml DAILYPRN PRN ORAL Constipation 11/27/17 21:00 12/27/17 20:59 Magnesium Oxide (Mag-Ox 400mg) 400 mg DAILY ORAL 11/28/17 09:00 12/26/17 14:29 11/29/17 09:21 Metformin HCl (Glucophage) 500 mg BID ORAL 11/28/17 09:00 12/26/17 08:59 11/29/17 17:50 Metoprolol Succinate (Toprol XL) 50 mg DAILY ORAL 11/29/17 09:00 12/29/17 08:59 11/29/17 09:21 Ondansetron HCl (Zofran) 4 mg Q4H PRN IVP Nausea & Vomiting 11/27/17 21:00 12/27/17 20:59 Patient Own Medication (Patient's Own Med) 1 ea QOD SUBQ 11/24/17 09:00 12/24/17 08:59 11/28/17 08:26 Piperacillin Sod/ Tazobactam Sod 3.375 gm/Dextrose 110 ml @ 27.5 mls/hr EVERY 8 HOURS IVPB 11/27/17 22:00 12/02/17 21:59 11/30/17 05:25 Polyethylene Glycol (Miralax) 17 gm THREE TIMES A DAY ORAL 11/28/17 09:00 12/27/17 16:29 11/29/17 17:50 Potassium Chloride (K-Dur) 40 meq Q12HR ORAL 11/29/17 21:00 12/29/17 20:59 11/29/17 21:33 Ramipril (Altace) 5 mg BID ORAL 11/28/17 18:00 12/28/17 17:59 11/29/17 17:49 Víctor Cheema MD Nov 30, 2017 09:04
[2017-11-30] MEDS: Magnesium Oxide 400mg tab ORAL SCH (09:05)
[2017-11-30] MEDS: metFORMIN 500mg tab ORAL SCH ×2 (09:05→17:17)
[2017-11-30] MEDS: Ramipril 2.5mg cap ORAL SCH ×2 (09:05→17:17)
[2017-11-30] MEDS: Metoprolol Succinate XL 50mg tab ORAL SCH (09:05)
[2017-11-30] MEDS: Aspirin Baby 81mg ORAL SCH (09:05)
[2017-11-30] MEDS: Miralax 17gm pkt ORAL SCH ×3 (09:07→17:17)
[2017-11-30] MEDS: Heparin 5000 units/ml inj SUBQ SCH ×2 (09:07→20:55)
[2017-11-30] MEDS: BETASERON SUBQ SCH (09:08)
--- NOTE | 2017-11-30 09:45 | Discharge Summary ---
DATE OF ADMISSION: 11/22/2017 DATE OF DISCHARGE: 12/02/2017 PERTINENT HISTORY: The patient was seen on admission by Dr. Robb Quiroz, see the dictated History and Physical for full report. The patient is a 72-year-old lady with multiple sclerosis, neurogenic bladder, suprapubic catheter, morbid obesity, quadriplegia, hypertension, hyperlipidemia, diabetes type 2. She presents with lethargy and a fever of 102 degrees. PERTINENT PHYSICAL FINDINGS: HEENT: Unremarkable. LUNGS: Clear. HEART: Regular rhythm. ABDOMEN: Soft and nontender. EXTREMITIES: No edema. GENITOURINARY: She has a suprapubic catheter. NEUROLOGIC: She is weak in all four extremities. COURSE IN THE HOSPITAL: The patient was admitted, cultured, and started on broad-spectrum antibiotics. She did have E. coli urinary tract infection and E. coli bacteremia, fever with sepsis. She also had hyponatremia, hypertension, and diabetes. The patient improved with hydration, antibiotic therapy, and supportive care. On the day of discharge, the patient is alert and responsive. Lungs clear. Heart regular rhythm. Abdomen soft. Extremities show 1+ edema. She is quadriplegic as prior. Her laboratories were stable and she was discharged in stable condition. She developed hypoxemia responing to oxygen and needed home O2 which delayed discharge. FINAL DIAGNOSES: 1. Escherichia coli bacteremia. 2. Escherichia coli urinary tract infection and pyelonephritis. 3. Chronic indwelling suprapubic catheter for neurogenic bladder. 4. Multiple sclerosis. 5. Adult onset diabetes. 6. Hyponatremia. 7. Hypertension. 8. Hyperlipidemia. 9. Sinus tachycardia. 10. Anemia of chronic disease. 11. Quadriplegia. 12. Troponin elevation. 13. Acute myocardial ischemia. 14. Non-ST elevation myocardial infarction, by hypoperfusion. 15. Obesity hypoventilation syndrome 16. pneumonia health care acquired 17. 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 MEDICATIONS: Per the discharge medication list. FOLLOWUP: Follow up by at [facility] and [facility] Zach Vega M.D. : Nicholas JOB#: [id number] CC: CLEOPATRA
--- NOTE | 2017-11-30 11:47 | Diagnostic Imaging Report ---
Indication: Shortness of breath Technique: One view of the chest Comparison: 11/22/2017 Findings: There is interim development of retrocardiac consolidation. There is atelectasis at both lung bases. There may be some pleural fluid on the left. There is equivocal minimal interstitial congestion, not definitely evident previously Left arm PICC remains. Impression: Retrocardiac consolidation, developing since 11/22/2017 Probable new left small pleural effusion Bilateral basilar atelectasis Equivocal minimal interstitial congestion
[2017-11-30 12:00] VITALS: BP 124/80
[2017-11-30] MEDS ORDERED: DYAZIDE 37.5-21 EACH PO (12:55)
[2017-11-30] MEDS ORDERED: APRESOLINE50 MG ORAL (12:55)
[2017-11-30] MEDS ORDERED: AUGMENTIN 875-1 EAC1 ORAL (12:55)
[2017-11-30 15:42] VITALS: BP 131/71
[2017-11-30 20:00] VITALS: BP 150/74
[2017-11-30] MEDS: Dyna-Hex 2% Top Sol 2oz TOPIC SCH (20:53)
[2017-12-01 00:07] VITALS: BP 152/85
[2017-12-01] MEDS: HydrALAZINE 50mg tab ORAL SCH ×4 (00:10→17:11)
--- NOTE | 2017-12-01 04:30 | Progress Note ---
DATE: 11/30/2017 CARDIOLOGY PROGRESS NOTE SUBJECTIVE: No chest pain. No shortness of breath with some congestion. Oxygen saturation on room air is 86%, repeated 87%. PHYSICAL EXAMINATION: LUNGS: Few rhonchi. CARDIAC: Regular rhythm and rate. Normal S1, S2. ABDOMEN: Soft. EXTREMITIES: No edema. PICC line in place. LABORATORY AND DIAGNOSTIC DATA: BUN 9, creatinine 0.5, potassium 4.8, white count 10, hemoglobin 10.7. Chest x-ray today reveals new retrocardiac infiltrate. IMPRESSION: 1. Bacteremia due to urinary tract infection. 2. Sepsis with shock recovered. 3. Aspiration pneumonia. 4. Multiple sclerosis. 5. Acute on chronic diastolic congestive heart failure. 6. Hypertensive urgency resolved. 7. Hypertensive heart disease with controlled blood pressure. PLAN: 1. Antimicrobials. 2. Respiratory hygiene. 3. Maintain PICC line. 4. Continue current cardiovascular medications without change. 5. She will need oxygen therapy upon discharge. Tyler Harley M.D. DR: RIKA JOB#: [id number] CC:
[2017-12-01 05:23] VITALS: BP 148/88
[2017-12-01] MEDS: NovoLOG Insulin Flexpen SUBQ SCH ×4 (05:44→21:00)
[2017-12-01] MEDS: Piperacillin/Tazobactam 3.375 GM in D5W 110 ML IVPB SCH ×3 (05:47→22:07)
[2017-12-01 08:28] VITALS: BP 148/84
[2017-12-01] MEDS: Ramipril 2.5mg cap ORAL SCH ×2 (09:00→17:10)
[2017-12-01] MEDS: metFORMIN 500mg tab ORAL SCH ×2 (09:04→17:11)
[2017-12-01] MEDS: Metoprolol Succinate XL 50mg tab ORAL SCH (09:04)
[2017-12-01] MEDS: Magnesium Oxide 400mg tab ORAL SCH (09:04)
[2017-12-01] MEDS: Heparin 5000 units/ml inj SUBQ SCH ×2 (09:05→21:00)
[2017-12-01] MEDS: Aspirin Baby 81mg ORAL SCH (09:06)
[2017-12-01] MEDS: Miralax 17gm pkt ORAL SCH ×3 (09:06→17:02)
--- NOTE | 2017-12-01 09:27 | Pulmonology Progress Note ---
Assessment/Plan Assessment/Plan 1. Altered mental status with history of MS. 2. Fever and sepsis due to e coli bacteremia 3. Multiple sclerosis 4. Sinus tachycardia with abnormal EKG, possible acute [place]. 5. Diabetes. 6. Hyponatremia. 7. Neurogenic bladder with chronic suprapubic catheter 8. Hypertension. 9. Hyperlipidemia. 10. Hypoxemia She has a pleural effusion on CT chest but also bullous lung disease; will therefore not request thoracentesis. Her hypoxemia is multifactorial due to splinting, atelectasis and possible fluid vs pneumonia At this time best option would be to continue antibiotics; consider diuresis Will recommend to order home O2 on discharge Subjective Interval Events: none Constitutional: Reports: no symptoms HEENT: Repors: no symptoms Respiratory: Reports: no symptoms Cardiovascular: Reports: no symptoms Gastrointestinal/Abdominal: Reports: no symptoms Allergies: Coded Allergies: SULFA (SULFONAMIDE ANTIBIOTICS) (Verified Allergy, Unknown, 11/22/17) Objective Last 24 Hour Vital Signs Date Time Temp Pulse Resp B/P (MAP) Pulse Ox O2 Delivery O2 Flow Rate FiO2 12/01/17 09:21 97.7 12/01/17 09:04 90 148/84 12/01/17 08:28 97.7 90 20 148/84 96 97.7 12/01/17 07:49 Nasal Cannula 3.0 12/01/17 07:49 90 18 Nasal Cannula 3.0 12/01/17 07:49 97 Nasal Cannula 3.0 12/01/17 05:47 148/88 12/01/17 05:23 97.7 90 18 148/88 97 Nasal Cannula 3.0 97.7 12/01/17 00:10 152/85 12/01/17 00:07 83 152/85 99 Nasal Cannula 3.0 11/30/17 21:52 99.0 11/30/17 20:53 99.0 11/30/17 20:43 96 Nasal Cannula 3.0 32 11/30/17 20:43 Nasal Cannula 3.0 32 11/30/17 20:42 87 20 Nasal Cannula 3.0 32 11/30/17 20:33 Nasal Cannula 4.0 11/30/17 20:00 99.0 88 19 150/74 96 99.0 11/30/17 17:17 131/71 11/30/17 17:17 131/71 11/30/17 15:42 98.2 86 18 131/71 97 98.2 11/30/17 12:15 98.8 98.8 11/30/17 12:00 99.0 82 18 124/80 97 99.0 11/30/17 12:00 124/80 Intake and Output 11/30/17 12/01/17 19:00 07:00 Intake Total 600 ml 137.5 ml Output Total 1625 ml 2800 ml Balance -1025 ml -2662.5 ml Intake Oral 600 ml IV Total 137.5 ml Output Urine Total 1625 ml 2800 ml # Bowel Movements 1 General Appearance: no acute distress HEENT: normocephalic Respiratory/Chest: chest wall non-tender, lungs clear Cardiovascular: normal peripheral pulses, normal rate, regular rhythm Abdomen: normal bowel sounds Current Medications Medications (Trade) Dose Ordered Sig/Mj Route PRN Reason Start Time Stop Time Status Last Admin Dose Admin Acetaminophen (Tylenol) 650 mg Q4H PRN RECTAL Mild Pain (Pain Scale 1-3) 11/27/17 20:30 12/22/17 20:29 Acetaminophen (Tylenol) 650 mg Q6H PRN ORAL Mild Pain/Temp > 100.5 11/27/17 21:45 12/27/17 03:44 11/30/17 12:31 Albuterol/ Ipratropium (Albuterol/ Ipratropium) 3 ml Q6H PRN HHN Shortness of Breath 11/27/17 21:00 12/02/17 20:59 Aspirin (ASA) 81 mg DAILY ORAL 11/28/17 09:00 12/24/17 08:59 12/01/17 09:06 Baclofen (Lioresal) 10 mg THREE TIMES A DAY ORAL 11/28/17 09:00 12/23/17 08:59 12/01/17 09:06 Chlorhexidine Gluconate (Lizzie-Hex 2%) 1 applic DAILY@2000 TOPIC 11/27/17 21:00 12/27/17 20:59 11/30/17 20:53 Dextrose (Dextrose 50%) STAT PRN IV Hypoglycemia 11/27/17 21:00 12/22/17 20:59 Furosemide (Lasix) 40 mg EVERY 12 HOURS IV 11/29/17 21:00 12/29/17 20:59 12/01/17 09:04 Heparin Sodium (Porcine) (Heparin 5000 units/ml) 5,000 units EVERY 12 HOURS SUBQ 11/27/17 21:00 12/23/17 20:59 12/01/17 09:05 Hydralazine HCl (Apresoline) 50 mg Q6HR ORAL 11/30/17 06:00 12/30/17 05:59 12/01/17 05:47 Ibuprofen (Motrin) 600 mg Q8H PRN ORAL Moderate Pain (Pain Scale 4-6) 11/27/17 21:00 12/27/17 20:59 12/01/17 09:21 Insulin Aspart (NovoLOG) BEFORE MEALS AND HS SUBQ 11/27/17 22:00 12/23/17 21:59 11/29/17 17:45 Magnesium Hydroxide (Mom) 30 ml DAILYPRN PRN ORAL Constipation 11/27/17 21:00 12/27/17 20:59 Magnesium Oxide (Mag-Ox 400mg) 400 mg DAILY ORAL 11/28/17 09:00 12/26/17 14:29 12/01/17 09:04 Metformin HCl (Glucophage) 500 mg BID ORAL 11/28/17 09:00 12/26/17 08:59 12/01/17 09:04 Metoprolol Succinate (Toprol XL) 50 mg DAILY ORAL 11/29/17 09:00 12/29/17 08:59 12/01/17 09:04 Ondansetron HCl (Zofran) 4 mg Q4H PRN IVP Nausea & Vomiting 11/27/17 21:00 12/27/17 20:59 Patient Own Medication (Patient's Own Med) 1 ea QOD SUBQ 11/24/17 09:00 12/24/17 08:59 11/30/17 09:08 Piperacillin Sod/ Tazobactam Sod 3.375 gm/Dextrose 110 ml @ 27.5 mls/hr EVERY 8 HOURS IVPB 11/27/17 22:00 12/02/17 21:59 12/01/17 05:47 Polyethylene Glycol (Miralax) 17 gm THREE TIMES A DAY ORAL 11/28/17 09:00 12/27/17 16:29 12/01/17 09:06 Potassium Chloride (K-Dur) 40 meq Q12HR ORAL 11/29/17 21:00 12/29/17 20:59 12/01/17 09:04 Ramipril (Altace) 5 mg BID ORAL 11/28/17 18:00 12/28/17 17:59 11/30/17 17:17 Víctor Cheema MD Dec 01, 2017 09:27
[2017-12-01 11:48] VITALS: BP 141/84
[2017-12-01 15:54] VITALS: BP 157/92
[2017-12-01] MEDS ORDERED: Tubing IV Secondary IV ONE (17:21)
[2017-12-01] MEDS ORDERED: NS 275ml ONE (17:21)
--- NOTE | 2017-12-01 17:33 | General Progress Note ---
Assessment/Plan Problem List: (1) Obstipation ICD Codes: K59.00 - Constipation, unspecified SNOMED: 696532107 (2) UTI (urinary tract infection) ICD Codes: N39.0 - Urinary tract infection, site not specified SNOMED: 94164671 Qualifiers: Qualified Codes: T83.511A - Infection and inflammatory reaction due to indwelling urethral catheter, initial encounter; N39.0 - Urinary tract infection , site not specified (3) Sepsis ICD Codes: A41.9 - Sepsis, unspecified organism SNOMED: 94054056 Qualifiers: Qualified Codes: A41.9 - Sepsis, unspecified organism (4) Altered level of consciousness ICD Codes: R40.4 - Transient alteration of awareness SNOMED: 6683110 (5) Tachycardia ICD Codes: R00.0 - Tachycardia, unspecified SNOMED: 6335252 (6) Multiple sclerosis ICD Codes: G35 - Multiple sclerosis SNOMED: 24934785 (7) Obesities, morbid ICD Codes: E66.01 - Morbid (severe) obesity due to excess calories SNOMED: 507299798, 55442007120823 (8) Hypoxemia ICD Codes: R09.02 - Hypoxemia SNOMED: 889431438 Assessment/Plan continue iv antibiotics, laxatives titrate bp meds, hypoxemia on RA, cxr ordered , start lasix, now can stop, dyazzide, hold discharge pending home oxygen Subjective Constitutional: Reports: weakness HEENT: Reports: no symptoms Cardiovascular: Reports: no symptoms Respiratory: Reports: cough Gastrointestinal/Abdominal: Reports: no symptoms Genitourinary: Reports: incontinence Neurologic/Psychiatric: Reports: pre-existing deficit Allergies: Coded Allergies: SULFA (SULFONAMIDE ANTIBIOTICS) (Verified Allergy, Unknown, 11/22/17) Objective Last 24 Hour Vital Signs Date Time Temp Pulse Resp B/P (MAP) Pulse Ox O2 Delivery O2 Flow Rate FiO2 12/01/17 17:11 157/92 12/01/17 17:10 157/92 12/01/17 15:54 97.9 70 20 157/92 98 97.9 12/01/17 12:05 141/84 12/01/17 11:48 98.1 94 20 141/84 99 98.1 12/01/17 10:20 97.7 12/01/17 09:21 97.7 12/01/17 09:04 90 148/84 12/01/17 08:28 97.7 90 20 148/84 96 97.7 12/01/17 07:49 Nasal Cannula 3.0 12/01/17 07:49 90 18 Nasal Cannula 3.0 12/01/17 07:49 97 Nasal Cannula 3.0 12/01/17 05:47 148/88 12/01/17 05:23 97.7 90 18 148/88 97 Nasal Cannula 3.0 97.7 12/01/17 00:10 152/85 12/01/17 00:07 83 152/85 99 Nasal Cannula 3.0 11/30/17 20:53 99.0 11/30/17 20:43 96 Nasal Cannula 3.0 32 11/30/17 20:43 Nasal Cannula 3.0 32 11/30/17 20:42 87 20 Nasal Cannula 3.0 32 11/30/17 20:33 Nasal Cannula 4.0 11/30/17 20:00 99.0 88 19 150/74 96 99.0 Intake and Output 11/30/17 12/01/17 19:00 07:00 Intake Total 600 ml 137.5 ml Output Total 1625 ml 2800 ml Balance -1025 ml -2662.5 ml Intake Oral 600 ml IV Total 137.5 ml Output Urine Total 1625 ml 2800 ml # Bowel Movements 1 Height (Feet): 5 Height (Inches): 4.00 Weight (Pounds): 283 General Appearance: no apparent distress, morbidly obese EENT: normal ENT inspection Neck: normal alignment Cardiovascular: normal rate, regular rhythm Respiratory/Chest: lungs clear, decreased breath sounds Abdomen: non tender, soft Edema: no edema noted Arm (L), no edema noted Arm (R), no edema noted Leg (L), no edema noted Leg (R), no edema noted Pedal (L), no edema noted Pedal (R), no edema noted Generalized Neurologic: motor weakness EUSEBIA COBB Dec 01, 2017 17:33
[2017-12-01 19:29] VITALS: BP 149/76
[2017-12-01] MEDS: Dyna-Hex 2% Top Sol 2oz TOPIC SCH (22:07)
[2017-12-02] VITALS (7 sets, daily range): BP systolic 141–163; BP diastolic 77–91
[2017-12-02] MEDS: HydrALAZINE 50mg tab ORAL SCH ×4 (00:33→17:14)
[2017-12-02] MEDS: Piperacillin/Tazobactam 3.375 GM in D5W 110 ML IVPB SCH ×2 (05:14→14:00)
[2017-12-02] MEDS: NovoLOG Insulin Flexpen SUBQ SCH ×3 (06:30→16:30)
[2017-12-02] MEDS: Metoprolol Succinate XL 50mg tab ORAL SCH (08:38)
[2017-12-02] MEDS: Magnesium Oxide 400mg tab ORAL SCH (08:38)
[2017-12-02] MEDS: Ramipril 2.5mg cap ORAL SCH ×2 (08:38→17:14)
[2017-12-02] MEDS: Aspirin Baby 81mg ORAL SCH (08:38)
[2017-12-02] MEDS: Miralax 17gm pkt ORAL SCH ×3 (08:39→17:16)
[2017-12-02] MEDS: Heparin 5000 units/ml inj SUBQ SCH (08:40)
[2017-12-02] MEDS ORDERED: Triamterene/Hctz 37.5/25 cap ORAL SCH (09:00)
[2017-12-02] MEDS: BETASERON SUBQ SCH (10:10)
--- NOTE | 2017-12-02 11:21 | Pulmonology Progress Note ---
Assessment/Plan Assessment/Plan 1. Altered mental status with history of MS. 2. Fever and sepsis due to e coli bacteremia 3. Multiple sclerosis 4. Sinus tachycardia with abnormal EKG, possible acute [place]. 5. Diabetes. 6. Hyponatremia. 7. Neurogenic bladder with chronic suprapubic catheter 8. Hypertension. 9. Hyperlipidemia. 10. Hypoxemia She has a pleural effusion on CT chest but also bullous lung disease; will therefore not request thoracentesis. Her hypoxemia is multifactorial due to splinting, atelectasis and possible fluid vs pneumonia At this time best option would be to continue antibiotics; consider diuresis Will recommend to order home O2 on discharge Subjective Interval Events: no new events Constitutional: Reports: no symptoms HEENT: Repors: no symptoms Respiratory: Reports: no symptoms Cardiovascular: Reports: no symptoms Gastrointestinal/Abdominal: Reports: no symptoms Genitourinary: Reports: no symptoms Allergies: Coded Allergies: SULFA (SULFONAMIDE ANTIBIOTICS) (Verified Allergy, Unknown, 11/22/17) Objective Last 24 Hour Vital Signs Date Time Temp Pulse Resp B/P (MAP) Pulse Ox O2 Delivery O2 Flow Rate FiO2 12/02/17 09:52 97.3 12/02/17 08:53 97.3 12/02/17 08:38 85 153/81 12/02/17 08:38 153/81 12/02/17 08:00 97.9 91 19 141/77 97 97.9 12/02/17 07:12 Nasal Cannula 3.0 32 12/02/17 07:12 85 18 Nasal Cannula 3.0 32 12/02/17 07:12 99 Nasal Cannula 3.0 32 12/02/17 07:00 83 153/81 12/02/17 05:14 163/91 12/02/17 04:50 Nasal Cannula 3.0 12/02/17 04:42 97.3 93 20 163/91 96 Room Air 97.3 12/02/17 00:33 156/79 12/02/17 00:33 97.9 12/02/17 00:26 Nasal Cannula 3.0 12/02/17 00:21 97.9 92 20 156/79 96 Nasal Cannula 97.9 12/01/17 20:00 Nasal Cannula 3.0 12/01/17 19:30 Nasal Cannula 2.0 28 12/01/17 19:30 94 18 Nasal Cannula 2.0 28 12/01/17 19:30 97 Nasal Cannula 2.0 28 12/01/17 19:29 98.1 98 20 149/76 96 Nasal Cannula 98.1 12/01/17 17:11 157/92 12/01/17 17:10 157/92 12/01/17 15:55 3.0 12/01/17 15:54 97.9 70 20 157/92 98 97.9 12/01/17 12:05 141/84 12/01/17 11:49 3.0 12/01/17 11:48 98.1 94 20 141/84 99 98.1 Intake and Output 12/01/17 12/02/17 19:00 07:00 Intake Total 950 ml 377.5 ml Output Total 2000 ml 900 ml Balance -1050 ml -522.5 ml Intake Oral 840 ml 240 ml IV Total 110 ml 137.5 ml Output Urine Total 2000 ml 900 ml # Bowel Movements 1 General Appearance: no acute distress HEENT: normocephalic Respiratory/Chest: chest wall non-tender, decreased breath sounds Cardiovascular: normal peripheral pulses, normal rate Current Medications Medications (Trade) Dose Ordered Sig/Mj Route PRN Reason Start Time Stop Time Status Last Admin Dose Admin Acetaminophen (Tylenol) 650 mg Q4H PRN RECTAL Mild Pain (Pain Scale 1-3) 11/27/17 20:30 12/22/17 20:29 Acetaminophen (Tylenol) 650 mg Q6H PRN ORAL Mild Pain/Temp > 100.5 11/27/17 21:45 12/27/17 03:44 11/30/17 12:31 Albuterol/ Ipratropium (Albuterol/ Ipratropium) 3 ml Q6H PRN HHN Shortness of Breath 11/27/17 21:00 12/02/17 20:59 Aspirin (ASA) 81 mg DAILY ORAL 11/28/17 09:00 12/24/17 08:59 12/02/17 08:38 Baclofen (Lioresal) 10 mg THREE TIMES A DAY ORAL 11/28/17 09:00 12/23/17 08:59 12/02/17 08:38 Chlorhexidine Gluconate (Lizzie-Hex 2%) 1 applic DAILY@2000 TOPIC 11/27/17 21:00 12/27/17 20:59 12/01/17 22:07 Dextrose (Dextrose 50%) STAT PRN IV Hypoglycemia 11/27/17 21:00 12/22/17 20:59 Heparin Sodium (Porcine) (Heparin 5000 units/ml) 5,000 units EVERY 12 HOURS SUBQ 11/27/17 21:00 12/23/17 20:59 12/02/17 08:40 Hydralazine HCl (Apresoline) 50 mg Q6HR ORAL 11/30/17 06:00 12/30/17 05:59 12/02/17 05:14 Ibuprofen (Motrin) 600 mg Q8H PRN ORAL Moderate Pain (Pain Scale 4-6) 11/27/17 21:00 12/27/17 20:59 12/02/17 08:53 Insulin Aspart (NovoLOG) BEFORE MEALS AND HS SUBQ 11/27/17 22:00 12/23/17 21:59 11/29/17 17:45 Magnesium Hydroxide (Mom) 30 ml DAILYPRN PRN ORAL Constipation 11/27/17 21:00 12/27/17 20:59 Magnesium Oxide (Mag-Ox 400mg) 400 mg DAILY ORAL 11/28/17 09:00 12/26/17 14:29 12/02/17 08:38 Metoprolol Succinate (Toprol XL) 50 mg DAILY ORAL 11/29/17 09:00 12/29/17 08:59 12/02/17 08:38 Ondansetron HCl (Zofran) 4 mg Q4H PRN IVP Nausea & Vomiting 11/27/17 21:00 12/27/17 20:59 Patient Own Medication (Patient's Own Med) 1 ea QOD SUBQ 11/24/17 09:00 12/24/17 08:59 12/02/17 10:10 Piperacillin Sod/ Tazobactam Sod 3.375 gm/Dextrose 110 ml @ 27.5 mls/hr EVERY 8 HOURS IVPB 11/27/17 22:00 12/07/17 21:59 12/02/17 05:14 Polyethylene Glycol (Miralax) 17 gm THREE TIMES A DAY ORAL 11/28/17 09:00 12/27/17 16:29 12/01/17 09:06 Ramipril (Altace) 5 mg BID ORAL 11/28/17 18:00 12/28/17 17:59 12/02/17 08:38 Triamterene/HCTZ (Dyazide) 1 cap DAILY ORAL 12/02/17 09:00 01/01/18 08:59 12/02/17 08:38 Víctor Cheema MD Dec 02, 2017 11:21
[2017-12-02] MEDS ORDERED: NS 275ml ONE (18:17)
--- NOTE | 2017-12-04 02:15 | Progress Note ---
DATE: 12/01/2017 CARDIOLOGY PROGRESS NOTE Late entry for 12/01/2017. SUBJECTIVE: The patient is at her baseline mentation. Less short of breath. Continues on antibiotics. She continues to require oxygen supplementation due to hypoxia. Pleural effusion noted on CT scan, is not amenable for thoracentesis due to high risk with bullous lung disease. The patient monitor remains sinus rhythm with occasional atrial ectopy. SUBJECTIVE: VITAL SIGNS: Blood pressure of 148/84, pulse 90, respirations 20, and no fevers. RESPIRATORY: Good breath sounds. HEART: Regular rhythm and rate. Normal S1, S2 with a fourth heart sound. ABDOMEN: Soft. EXTREMITIES: Trace dependent edema noted. IMPRESSION: 1. Bacteremia recovering. 2. Urinary tract infection with sepsis and shock, resolved. 3. Multiple sclerosis. 4. Acute on chronic diastolic congestive heart failure. 5. Stabilize blood pressure following hypertensive urgency. 6. Hypoxia due to underlying lung disease. PLAN: 1. Maintain adequate hydration. 2. Antimicrobials per Infectious Disease solution consultant. 3. Oxygen supplementation. 4. Titrate antihypertensive regimen. Tyler Harley M.D. DR: PACO JOB#: [id number] CC:
--- NOTE | 2017-12-04 04:45 | Progress Note ---
DATE: 12/02/2017 CARDIOLOGY PROGRESS NOTE Late entry for 12/02/2017 SUBJECTIVE: The patient has no new distress. She remains afebrile. Blood pressure parameters overall controlled, although trending upwards. OBJECTIVE: VITAL SIGNS: Blood pressure range 141/77 to 163/91, heart rate 85 to 91, and respiratory rate 18 to 20. NECK: Supple. LUNGS: With few rhonchi. CARDIAC: Regular rhythm and rate. Normal S1, S2. ABDOMEN: Soft. EXTREMITIES: No edema. ASSESSMENT: 1. Recovered shock due to sepsis related to urinary tract infection. 2. Loculated pleural effusion in the setting of bullous lung disease. 3. Multiple sclerosis. 4. Secondary sinus tachycardia. 5. Abnormal EKG reflecting pseudo infarct pattern. 6. Hypertensive urgency, resolved, but still with slightly upward blood pressure trend. PLAN: 1. Continue current regimen. 2. If blood pressure parameters remain elevated, can advance medications further at the group home facility. 3. Would be cautious to avoid orthostatic symptoms. Tyler Harley M.D. DR: PACO JOB#: [id number] CC:
--- NOTE | 2017-12-05 21:30 | Diagnostic Imaging Report ---
APPROVED REPORT CPT Code: 34699 Present Symptoms Shortness of breath Comments Technically difficult and limited study due to vessel depth (mid- distal thigh area). BILATERAL: Imaging reveals a patent deep venous system bilaterally. There is no evidence of thrombus within the common and proximal femoral, popliteal or tibial segments. The greater saphenous veins are also within normal limits. Doppler indicates normal spontaneous flow within these segments.
== END 2017-12-02 18:18 | disposition home or self-care (01) | DRG 871 ==
LOC: EDBD 18:18 → EMR 19:03 → 2W 19:07 → EDBEDREQ 19:19 → EDBEDREQSVC 19:19 → EDBEDREQ 20:26 → 4W 11-27 20:50
PROC: 02HV33Z Insertion of Infusion Device into Superior Vena Cava, Percutaneous Approach (ICD-10-PCS; principal; 2017-11-23)
PROC: B548ZZA Ultrasonography of Superior Vena Cava, Guidance (ICD-10-PCS; principal; 2017-11-23)
DX: A41.51 Sepsis due to Escherichia coli [E. coli] (principal); R65.21 Severe sepsis with septic shock; G92 Toxic encephalopathy; I21.4 Non-ST elevation (NSTEMI) myocardial infarction; I50.33 Acute on chronic diastolic (congestive) heart failure; G82.50 Quadriplegia, unspecified; E43 Unspecified severe protein-calorie malnutrition; J18.9 Pneumonia, unspecified organism; N39.0 Urinary tract infection, site not specified; Z68.42 Body mass index [BMI] 45.0-49.9, adult; E66.2 Morbid (severe) obesity with alveolar hypoventilation; I13.0 Hypertensive heart and chronic kidney disease with heart failure and stage 1 through stage 4 chronic kidney disease, or unspecified chronic kidney disease; E87.1 Hypo-osmolality and hyponatremia; G35 Multiple sclerosis; I16.0 Hypertensive urgency; N18.9 Chronic kidney disease, unspecified; E11.22 Type 2 diabetes mellitus with diabetic chronic kidney disease; N31.9 Neuromuscular dysfunction of bladder, unspecified; E78.5 Hyperlipidemia, unspecified; Z74.01 Bed confinement status; R09.02 Hypoxemia
CPT/HCPCS: 36415; 36569; 36600; 71045; 71275; 76700; 76937; 80048; 80053; 81003; 82553; 82803; 82962; 83735; 83880; 84484; 85007; 85025; 87040; 87070; 87086; 87181; 87205; 93005; 93306; 93970; 94664; 94760; 99285; J1815; J2405; J8499

== ENCOUNTER 2019-01-15 16:04 | Inpatient (IN) | payer OTHER, MEDICAID ==
[~2019-01-15] VITALS: Ht 170.2 cm; Wt 99.8 kg
[~2019-01-15 16:04] MED LIST: APRESOLINE50 MG ORAL; AUGMENTIN 875-1 EAC1 ORAL; BACLOFEN10 MG ORAL; CEFTRIAXON1 GM/50 ML IV; DYAZIDE 37.5-21 EACH PO; FUROSEMIDE20 M1 ORAL; LEVAQUIN500 MG ORAL; LOVASTATIN10 MG ORAL; METFORMIN HCL500 M1 ORAL; MIRALAX17 G2 ORAL; PRILOSEC2.5 MG ORAL; RAMIPRIL2.5 MG ORAL; TIZANIDINE HCL4 MG ORAL
[2019-01-15 16:15] VITALS: BP 120/46
--- NOTE | 2019-01-15 16:15 | NUR ---
ED Nurse Note: Pt is from home brought in by ambulance due to fever since yesterday 100.4. Pt also reports decrease in appetite. Denies nausea/Vomiting. Pt is AAo x3, non ambulatory with mild SOB and audible crackles. Noted +1pitting edema on bilateral lower legs. Pt came in with suprapubic cath.
--- NOTE | 2019-01-15 16:16 | Emergency Room Report ---
History of Present Illness General Chief Complaint: Fever Source: Patient, EMS Present Illness HPI Patient is a 73-year-old female presented by EMS.Patient had chief complaint of fever onset for 2 days. Patient noted to be having prior history of multiple sclerosis and was noted to have increased fever up to 100.5. Patient had been reportedly having decreased energy as well as generalized lethargy. Patient had increased complaints of generalized discomfort. Predominantly in her upper back. She was noted to have increased cough. Allergies: Coded Allergies: SULFA (SULFONAMIDE ANTIBIOTICS) (Verified Allergy, Unknown, 11/22/17) Patient History Past Medical History: see triage record, other - multiple sclerosis Last Menstrual Period: menopause Now: No Reviewed Nursing Documentation: PMH: Agreed; PSxH: Agreed Nursing Documentation-PMH Hx Cardiac Problems: Yes - CHF, MS Hx Hypertension: Yes Hx Diabetes: Yes Hx Cancer: No Hx Gastrointestinal Problems: No Hx Multiple Sclerosis: Yes Review of Systems All Other Systems: limited - by poor historian Physical Exam Vital Signs Date Time Temp Pulse Resp B/P (MAP) Pulse Ox O2 Delivery O2 Flow Rate FiO2 01/15/19 16:05 99.7 110 18 83 Room Air General Appearance: alert, obese, Chronically Ill ENT: moist mucus membranes Neck: limited range of motion Respiratory: no respiratory distress, rhonchi, speaking full sentences Cardiovascular #1: tachycardia, edema Gastrointestinal: normal inspection, soft Musculoskeletal: other - upper extremites contracted Neurologic: alert, motor weakness - bilateral lower extremity , upper extremity spastic and contracted, other - contracted, speech normal Psychiatric: normal inspection Skin: normal color Medical Decision Making Diagnostic Impression: Primary Impression: Multiple sclerosis Additional Impressions: Pneumonia Urinary tract infection ER Course Patient presented for fever and increased cough. Differential diagnosis include was not limited to pneumonia, pulmonary embolism, urinary tract infection, sepsis among others. Because of complexity of patient's case laboratory testing and imaging studies were ordered. Patient was noted to have increased cough as well as fever. Chest x-ray 1 view interpreted by me showed vascular congestion and cardiomegaly. Patient was noted to have some increased right upper lobe infiltrate compared to previous chest x-ray.Patient given some IV fluids as well as IV antibiotics noted to have some evidence of urinary infection. Patient previous history of urinary infections.Patient was given IV fluids as she was noted to be somewhat tachycardic. Patient was discussed with hospitalist from [facility] I will authorize for admission to [facility] due to persistent tachycardia and possible sepsis. She stated that they may transfer the patient after more stable. Patient was discussed with Dr. Robb Quiroz for inpatient management due to capitated physician. Labs Test 01/15/19 16:14 White Blood Count 10.3 K/UL (4.8-10.8) Red Blood Count 4.98 M/UL (4.20-5.40) Hemoglobin 13.4 G/DL (12.0-16.0) Hematocrit 41.0 % (37.0-47.0) Mean Corpuscular Volume 82 FL (80-99) Mean Corpuscular Hemoglobin 26.8 PG (27.0-31.0) Mean Corpuscular Hemoglobin Concent 32.6 G/DL (32.0-36.0) Red Cell Distribution Width 16.4 % (11.6-14.8) Platelet Count 263 K/UL (150-450) Mean Platelet Volume 7.5 FL (6.5-10.1) Neutrophils (%) (Auto) % (45.0-75.0) Lymphocytes (%) (Auto) % (20.0-45.0) Monocytes (%) (Auto) % (1.0-10.0) Eosinophils (%) (Auto) % (0.0-3.0) Basophils (%) (Auto) % (0.0-2.0) Urine Color Pale yellow Urine Appearance Slightly cloudy Urine pH 5 (4.5-8.0) Urine Specific [place] 1.010 (1.005-1.035) Urine Protein Negative (NEGATIVE) Urine Glucose (UA) Negative (NEGATIVE) Urine Ketones Negative (NEGATIVE) Urine Blood 4+ (NEGATIVE) Urine Nitrite Positive (NEGATIVE) Urine Bilirubin Negative (NEGATIVE) Urine Urobilinogen Normal MG/DL (0.0-1.0) Urine Leukocyte Esterase 3+ (NEGATIVE) Urine RBC 10-15 /HPF (0 - 2) Urine WBC 60-80 /HPF (0 - 2) Urine Squamous Epithelial Cells Moderate /LPF (NONE/OCC) Urine Bacteria Many /HPF (NONE) Sodium Level 133 MMOL/L (136-145) Potassium Level 4.5 MMOL/L (3.5-5.1) Chloride Level 96 MMOL/L (98-107) Carbon Dioxide Level 27 MMOL/L (21-32) Anion Gap 10 mmol/L (5-15) Blood Urea Nitrogen 12 mg/dL (7-18) Creatinine 0.5 MG/DL (0.55-1.30) Estimat Glomerular Filtration Rate mL/min (>60) Glucose Level 124 MG/DL (74-106) Lactic Acid Level 1.80 mmol/L (0.4-2.0) Calcium Level 9.2 MG/DL (8.5-10.1) Phosphorus Level 3.0 MG/DL (2.5-4.9) Magnesium Level 1.6 MG/DL (1.8-2.4) Total Bilirubin 0.4 MG/DL (0.2-1.0) Aspartate Amino Transf (AST/SGOT) 19 U/L (15-37) Alanine Aminotransferase (ALT/SGPT) 19 U/L (12-78) Alkaline Phosphatase 127 U/L (46-116) Total Creatine Kinase 65 U/L (26-308) Creatine Kinase MB 0.6 NG/ML (0.0-3.6) Creatine Kinase MB Relative Index 0.9 Troponin I 0.000 ng/mL (0.000-0.056) Total Protein 8.7 G/DL (6.4-8.2) Albumin 2.8 G/DL (3.4-5.0) Globulin 5.9 g/dL Albumin/Globulin Ratio 0.5 (1.0-2.7) EKG Diagnostic Results Rate: tachycardiac - 130 Rhythm: NSR ST Segments: other - Lateral T wave inversion leads I and aVL Last Vital Signs Date Time Temp Pulse Resp B/P (MAP) Pulse Ox O2 Delivery O2 Flow Rate FiO2 01/15/19 16:05 99.7 110 18 83 Room Air Status: improved Disposition: ADMITTED INPATIENT Condition: Raymon Walker MD January 15, 2019 16:16
[2019-01-15] MEDS ORDERED: Ampicillin/Sulbactam Sod 3 GM in NS 110 ML IVPB ONE (16:30)
[2019-01-15] MEDS ORDERED: Vancomycin 1.5gm/D5W Premix 275 ML IVPB ONE (16:30)
--- NOTE | 2019-01-15 16:35 | NUR ---
ED Nurse Note: information technology instructor at the bed side for CXR.
--- NOTE | 2019-01-15 16:37 | NUR ---
ED Nurse Note: Collected blood, urine and flu swab then sent to lab.
--- NOTE | 2019-01-15 16:51 | NUR ---
ED Nurse Note: Noted skin discoloration on sacrum area. No open wounds.
[2019-01-15 16:59] LABS: APPEARANCE,URINE SLIGHTLY CLOUDY; BILIRUBIN, URINE NEGATIVE (NEGATIVE); COLOR,URINE PALE YELLOW; GLUCOSE, URINE (UA) NEGATIVE (NEGATIVE); HEMOGLOBIN 13.4 G/DL (12.0-16.0); KETONES,URINE NEGATIVE (NEGATIVE); LEUKOCYTE ESTERASE ,URINE 3+ (NEGATIVE); MEAN CORPUSCULAR VOLUME 82 FL (80-99); NITRITE,URINE POSITIVE (NEGATIVE); PH,URINE 5 (4.5-8.0); PLATELET COUNT 263 K/UL (150-450); PROTEIN,URINE NEGATIVE (NEGATIVE); RED BLOOD COUNT 4.98 M/UL (4.20-5.40); RED CELL DISTRIBUTION WIDTH 16.4 % (11.6-14.8); UROBILINOGEN,URINE NORMAL MG/DL (0.0-1.0); WHITE BLOOD COUNT 10.3 K/UL (4.8-10.8)
[2019-01-15] MEDS ORDERED: Vancomycin 1.5gm vial IVPB ONE (17:08)
[2019-01-15 17:45] LABS: ANION GAP 10 mmol/L (5-15); BLOOD UREA NITROGEN 12 mg/dL (7-18); CALCIUM 9.2 MG/DL (8.5-10.1); CARBON DIOXIDE 27 MMOL/L (21-32); CHLORIDE 96 MMOL/L (98-107); CREATININE 0.5 MG/DL (0.55-1.30); POTASSIUM 4.5 MMOL/L (3.5-5.1); SODIUM 133 MMOL/L (136-145)
--- NOTE | 2019-01-15 18:00 | NUR ---
ED Nurse Note: Pt and caregiver are aware of admission/or transfer.
[2019-01-15 18:02] LABS: ALANINE AMINOTRANSFERASE 19 U/L (12-78); ALBUMIN 2.8 G/DL (3.4-5.0); ALBUMIN/GLOBULIN RATIO 0.5 (1.0-2.7); ALKALINE PHOSPHATASE 127 U/L (46-116); ASPARTATE AMINO TRANSFERASE 19 U/L (15-37); BILIRUBIN,TOTAL 0.4 MG/DL (0.2-1.0); CKMB 0.6 NG/ML (0.0-3.6); CREATINE KINASE 65 U/L (26-308)
[2019-01-15] MEDS ORDERED: Acetaminophen 500mg (ES) tab ORAL ONE (18:15)
[2019-01-15 18:28] VITALS: BP 119/48
--- NOTE | 2019-01-15 19:08 | NUR ---
HAND-OFF: Report given to Oksana STATON.
[2019-01-15 19:20] VITALS: BP 121/76
--- NOTE | 2019-01-15 19:23 | NUR ---
ED Nurse Note: received report from SHEMAR Lantigua and assumed care, pt cleaned and changed, vss, sinus tach on home theatre technician, caregiver at the bedside, iv intact and patent, noted pressure ulcer on sacral and back, foul odor noted with scant yellowish drainage, suprapubic cath noted. will cont monitor.
--- NOTE | 2019-01-15 21:20 | NUR ---
ED Nurse Note: PT VSS, RESP EVEN AND UNLABORED NO SX DISTRESS, WILL CONT MONITOR.
[2019-01-15 22:48] VITALS: BP 115/50
--- NOTE | 2019-01-15 22:49 | NUR ---
ED Nurse Note: report given to SHEMAR Moseley and endorsed care, pt transferred to tele floor, no belonging, sinus tach on ekg monitor, o2sat 100% w/ NC 2L/min.
--- NOTE | 2019-01-15 22:50 | NUR ---
NURSE NOTES: Received pt from SHEMAR Lim. Pt awake, alert, and c/o pain in the left wrist. Wounds and discolorations noted in the following areas: - R.heel - R. toes - Sacrum - Bilateral inner thighs - underneath bilateral breasts - L. Lateral leg - underneath stomach Pt has a wet cough with rales auscultated. Bed in lowest position. Call light within reach. Will contact MD Quiroz for admission orders. BG 112. No belongings. Rigid parts noted on the abdomen as well as BLE. Edematous L. leg also noted. VSS. Will continue to monitor.
[2019-01-16] VITALS: BP 100/58
[2019-01-16] MEDS: Vancomycin 1gm/D5W 275ml IVPB SCH ×4 (03:08→09:10)
[2019-01-16] MEDS: Albuterol/Ipratropium 3ml neb HHN SCH ×5 (03:16→19:57)
[2019-01-16 04:00] VITALS: BP 153/82
[2019-01-16] MEDS ORDERED: HydrALAZINE 50mg tab ORAL SCH ×2 (06:00→14:00)
--- NOTE | 2019-01-16 06:07 | NUR ---
NURSE NOTES: Called and left a message with Dr. Vasquez regarding pts pain. Awaiting call back.
--- NOTE | 2019-01-16 07:40 | NUR ---
NURSE NOTES: Received report from Alba STATON. aox3, No c/o pain. Noted ST with 130/min and per night shifr nurse Dr. Sanford aware. Will notify MD in AM for further order. Bed in lowest position and locked. IV site in LFA 20g SL intact patent. Pt in bed and non-ambulatory awake. Noted bilateral arms contracture. Noted multiple wound and will apply [place] mattress when available. Will continue to plan of care.
[2019-01-16 08:00] VITALS: BP 138/79
--- NOTE | 2019-01-16 08:01 | NUR ---
HAND-OFF: Report given to SHEMAR Garcia. Pt stable.
--- NOTE | 2019-01-16 08:44 | NUR ---
RADIOLOGY DEPT., CHEST X-RAY DONE.-P.DYE
[2019-01-16 08:47] LABS: HEMATOCRIT 44.9 % (37.0-47.0); HEMOGLOBIN 14.4 G/DL (12.0-16.0); MEAN CORPUSCULAR VOLUME 84 FL (80-99); PLATELET COUNT 238 K/UL (150-450); RED BLOOD COUNT 5.33 M/UL (4.20-5.40); RED CELL DISTRIBUTION WIDTH 16.8 % (11.6-14.8); WHITE BLOOD COUNT 8.6 K/UL (4.8-10.8)
--- NOTE | 2019-01-16 08:52 | NUR ---
CASE MANAGEMENT:REVIEW 73 YR OLD FEMALE BIBSharon FROM HOME CC: FEVER AND CONGESTION PMH: MULTIPLE SCLEROSIS SI: PNA. MULTIPLE SCLEROSIS. UTI 100.5 110 18 180/100 97% ON 2L/NC NA-133 IS: 1L NS BOLUS IV AMPICILLIN IV VANCOMYCIN TYLENOL PO 500CC NS BOLUS VENOUS DUPLEX BLUE/BLLE CHEST XRAY BLOOD CX : TO TELEMETRY UNIT Addendum: 01/16/19 at 0901 by RONEY SANCHEZ LVN LVN INTERQUAL CRITERIA MET
[2019-01-16] MEDS ORDERED: Miralax 17gm pkt ORAL SCH (09:00)
[2019-01-16] MEDS ORDERED: Triamterene/Hctz 37.5/25 cap ORAL SCH (09:00)
[2019-01-16] MEDS ORDERED: BETASERON SUBQ SCH (09:00)
[2019-01-16] MEDS ORDERED: metFORMIN 500mg tab ORAL SCH (09:00)
[2019-01-16] MEDS ORDERED: Ramipril 2.5mg cap ORAL SCH ×2 (09:00→18:00)
[2019-01-16] MEDS ORDERED: Levofloxacin 500mg tab ORAL SCH (09:00)
[2019-01-16] MEDS ORDERED: Ampicillin/Sulbactam Sod 1.5 GM in NS 55 ML IVPB SCH ×2 (09:00→21:00)
[2019-01-16 09:02] LABS: ANION GAP 9 mmol/L (5-15); BLOOD UREA NITROGEN 14 mg/dL (7-18); CALCIUM 9.3 MG/DL (8.5-10.1); CARBON DIOXIDE 28 MMOL/L (21-32); CHLORIDE 98 MMOL/L (98-107); CREATININE 0.7 MG/DL (0.55-1.30); POTASSIUM 4.2 MMOL/L (3.5-5.1); SODIUM 135 MMOL/L (136-145)
--- NOTE | 2019-01-16 09:10 | NUR ---
NURSE NOTES: Dr. Quiroz made a round and ST with 130/min reported and No cardiology consult ordered. Speech eval and wound consult ordered.
--- NOTE | 2019-01-16 09:34 | NUR ---
*-* NO INSURANCE INFORMATION IN THE BAR UNABLE TO SEND CLINIAS AND REVIEWS *-*
--- NOTE | 2019-01-16 10:25 | NUR ---
RECRUITER SPECIALIST Note: RECRUITER SPECIALIST was called at 1025 for rm 201-2, pt came in for pneumonia and due to pt's BP is low 80/44, hr- 126,pt is a/ox1 normally a/ox3, upon assessment, BP remained low 84/49. checked BS- 141mg/dl, no appraent distress,ABG was done and as follows: ph-7.387,pco2-47.6, po2-71.8, HCo3- [address] Quiroz at 1030. Pt transferred to [facility] at 1049 for closely monitoring. See RECRUITER SPECIALIST documentation form for full report.
--- NOTE | 2019-01-16 10:55 | NUR ---
NURSE NOTES: Noted altered mental status at 10:24am when RN and wound care nurse came to patient's room for wound assessment. Pt c/o abd pain and gave tylenol 650mg po at 9:43am. Pt responsive only to deep pain. Rapid response team called at 10:25am. V/s sings checked with 75/40 p 112 RR 22 spo2 97% on 2LPM. BG 141mg/dl. ABGA checked by RT. No IV bolus given due to pt's diagnosis with CHF. Noted left arm swelling and removed IV and reinserted IV 20G SL in right wrist patent and intact. At 10:50am, Made dr. weaver aware of pt's ZHOU. Transfer to [facility] ordered. Pt transferred to [facility] with 2LPM via NC with three nurses and report given to Tri STATON @[facility].
--- NOTE | 2019-01-16 10:55 | NUR ---
NURSE NOTES: Received bedside report from Jose Red RN. Pt. in bed, fatigued after RN CLINICAL DOCUMENTATION. No sign of distress. On O2 at 2LPM via NC. Denies pain at present. New IV re-inserted on right wrist #20g. in placed patent/intact. Supra pubic in placed patent/intact draining yellow colored urine. Bed in low position, locked. Call light within reach. Will cont. to monitor.
[2019-01-16] MEDS ORDERED: D5NS 1,000 ML IV SCH (11:00)
--- NOTE | 2019-01-16 11:09 | Diagnostic Imaging Report ---
Indication:Leg pain and swelling Technique: Grayscale and duplex Doppler imaging of the veins in both lower extremities performed in real time utilizing compression and augmentation. Comparison: None Findings: Duplex Doppler interrogation of the veins in both lower extremity is performed from the common femoral vein to the popliteal vein. Normal venous compressibility demonstrated throughout with the limitation of nonvisualization of the superficial femoral vein and popliteal vein in portions due to large body habitus. No thrombus identified. Waveform analysis shows good respiratory phasicity and augmentation. IMPRESSION: No evidence of deep venous thrombosis involving the lower extremities. Significant limitations were present with nonvisualization of portions of the femoral veins and popliteal vein due to large body habitus.
--- NOTE | 2019-01-16 11:22 | NUR ---
RD ASSESSMENT & RECOMMENDATIONS SEE CARE ACTIVITY FOR COMPLETE ASSESSMENT DAILY ESTIMATED NEEDS: Needs based on Pulmonary, obese 78kg adj 20-25 kcals/kg [id number] total kcals 1-1.5 g protein/kg 78-117 g total protein Fluid per MD, on lasix NUTRITION DIAGNOSIS: 1) Decreased sodium and fat intake needs R/T cardiac hx, PNA as evidenced by on diuretics, HTN, BMI >40, pt is @191% [place] Body Weight. 2) Self feeding difficulty r/t MS as evidenced by pt w/ BL UE contractures, requires 1:1 feedings. PO DIET RECOMMENDATIONS: Cardiac, CCHO MED (texture per MELON PACKER) ---- ADDITIONAL RECOMMENDATIONS: 1) MELON PACKER eval for appropriate texture (h/o MS w/ contractures, need for 1:1) 2) Wound Care: photos noted, pending MD wang 3) A1C for eval (need for diet change to ccho low w/ 2x prot) 4) Check lytes daily on lasix, replete as needed (Mg 1.6)
--- NOTE | 2019-01-16 11:55 | Diagnostic Imaging Report ---
Indication: Dyspnea Comparison: 11/21/2018 A single view chest radiograph was obtained. Findings: Interstitial and vascular prominence again demonstrated. In addition there is a focus of airspace disease that the is present on the right upper lobe. The heart is enlarged. Left basilar effusion may be present. IMPRESSION: Suspected CHF/interstitial edema. Right upper lobe pneumonia versus asymmetric edema
[2019-01-16 12:00] VITALS: BP 111/54
--- NOTE | 2019-01-16 12:05 | Diagnostic Imaging Report ---
Indication: Dyspnea Comparison: 01/15/2019 A single view chest radiograph was obtained. Findings: Patchy infiltrates noted on the right upper lobe and possibly left lung base as well. Generalized interstitial and vascular prominence demonstrated although this may be slightly improved. IMPRESSION: Persistent right upper lobe infiltrate and probable infiltrate left lung base. This could be due to pneumonia or asymmetric edema. Improved interstitial edema over one day
[2019-01-16] MEDS: D5NS 1,000 ML IV SCH (12:15)
--- NOTE | 2019-01-16 12:49 | History & Physical ---
History and Physical History & Physicial History & Physicial HISTORY OF PRESENT ILLNESS: The patient is a 73-year-old woman who is admitted from home with complaint of fever and cough for 2 days. She was seen in the emergency department and found to have pneumonia and UTI, she did have low grade temperature. She was given antibiotics and admission was arranged. Lactate was normal. PAST MEDICAL HISTORY: She has history of multiple sclerosis and neurogenic bladder with chronic suprapubic catheter. She has morbid obesity, quadriplegia, hypertension, hyperlipidemia, diabetes type 2, colon polyps, and anemia. She had colonoscopy in 2013. She does not drink or smoke. ALLERGIES: Sulfonamides. MEDICATIONS: Baclofen, Lasix, lovastatin, metformin, omeprazole, and tizanidine. PHYSICAL EXAMINATION: GENERAL: The patient is alert and dysarthric. She is morbidly obese. No distress. VITAL SIGNS: stable, high HR HEENT: Head is normocephalic. NECK: No jugular venous distention. CHEST: Clear. CARDIAC: Rhythm is regular. Tachycardia. ABDOMEN: Soft and nontender. EXTREMITIES: No edema. GENITOURINARY: Suprapubic catheter is in place. LABORATORY AND DIAGNOSTIC DATA: reviewed IMPRESSIONS: 1. Pneumonia 2. UTI with chronic suprapubic catheter. 3. Multiple sclerosis. 4. Sinus tachycardia 5. Diabetes. 6. Hyponatremia. 7. Neurogenic bladder. 8. Hypertension. 9. Hyperlipidemia. PLAN: The patient will be seen treated w antibiotics and IVF. This will be adjusted based on cultures. ID consult was requested. Robb Quiroz MD January 16, 2019 12:49
--- NOTE | 2019-01-16 13:11 | Infectious Diseases Prog Note ---
Assessment/Plan Assessment/Plan Full consult dictated: uti/pyelonephritis cap vs aspiration pna vs edema on chest x-ray sp catheter fevers allergies - sulfa zosyn and vancomycin check cultures, labs and chest x-ray thank you Subjective Allergies: Coded Allergies: SULFA (SULFONAMIDE ANTIBIOTICS) (Verified Allergy, Unknown, 11/22/17) Objective Vital Signs Last 24 Hour Vital Signs Date Time Temp Pulse Resp B/P (MAP) Pulse Ox O2 Delivery O2 Flow Rate FiO2 01/16/19 12:00 2.0 01/16/19 12:00 98.0 120 24 111/54 (73) 96 01/16/19 11:35 103 18 99 Nasal Cannula 2.0 28 01/16/19 11:25 28 01/16/19 11:25 108 16 93 Nasal Cannula 2.0 28 01/16/19 09:00 Nasal Cannula 2.0 01/16/19 08:52 138/79 01/16/19 08:00 2.0 01/16/19 08:00 99.9 133 24 138/79 (98) 94 01/16/19 08:00 129 01/16/19 07:28 103 18 98 Nasal Cannula 2.0 28 01/16/19 07:18 Nasal Cannula 2.0 28 01/16/19 07:18 28 01/16/19 07:18 93 Nasal Cannula 2.0 28 01/16/19 07:18 105 16 93 Nasal Cannula 2.0 28 01/16/19 05:58 153/82 01/16/19 04:00 2.0 01/16/19 04:00 110 01/16/19 04:00 97.7 121 20 153/82 (105) 96 01/16/19 03:42 Nasal Cannula 2.0 28 01/16/19 03:42 92 Nasal Cannula 2.0 28 01/16/19 03:39 118 18 98 Nasal Cannula 2.0 28 01/16/19 03:20 28 01/16/19 03:17 112 18 93 Nasal Cannula 2.0 28 01/16/19 00:00 2.0 01/16/19 00:00 110 01/16/19 00:00 98.0 113 16 100/58 (72) 97 01/15/19 23:38 Nasal Cannula 2.0 01/15/19 22:52 98.2 120 18 113/67 100 Room Air 01/15/19 22:48 98.3 123 115/50 (71) 94 01/15/19 19:20 120 15 Nasal Cannula 2.0 01/15/19 19:20 100.5 120 15 121/76 98 Nasal Cannula 2.0 01/15/19 18:40 100.5 01/15/19 18:28 100.5 120 15 119/48 98 Nasal Cannula 2.0 01/15/19 16:15 110 18 Nasal Cannula 2.0 01/15/19 16:15 100.5 128 18 120/46 97 Nasal Cannula 2.0 01/15/19 16:05 99.7 110 18 83 Room Air Height (Feet): 5 Height (Inches): 7.00 Weight (Pounds): 220 Microbiology Date/Time Source Procedure Growth Status 01/15/19 16:14 Nasal Nares - Final Complete 01/15/19 16:14 Nasal Nares - Final Complete 01/15/19 16:14 Urine,Clean Catch Urine Culture - Preliminary Gram Negative Bacillus 1 Resulted Laboratory Tests Test 01/15/19 16:14 01/16/19 08:05 01/16/19 10:27 White Blood Count 10.3 K/UL (4.8-10.8) 8.6 K/UL (4.8-10.8) Red Blood Count 4.98 M/UL (4.20-5.40) 5.33 M/UL (4.20-5.40) Hemoglobin 13.4 G/DL (12.0-16.0) 14.4 G/DL (12.0-16.0) Hematocrit 41.0 % (37.0-47.0) 44.9 % (37.0-47.0) Mean Corpuscular Volume 82 FL (80-99) 84 FL (80-99) Mean Corpuscular Hemoglobin 26.8 PG (27.0-31.0) L 27.1 PG (27.0-31.0) Mean Corpuscular Hemoglobin Concent 32.6 G/DL (32.0-36.0) 32.2 G/DL (32.0-36.0) Red Cell Distribution Width 16.4 % (11.6-14.8) H 16.8 % (11.6-14.8) H Platelet Count 263 K/UL (150-450) 238 K/UL (150-450) Mean Platelet Volume 7.5 FL (6.5-10.1) 8.8 FL (6.5-10.1) Neutrophils (%) (Auto) % (45.0-75.0) % (45.0-75.0) Lymphocytes (%) (Auto) % (20.0-45.0) % (20.0-45.0) Monocytes (%) (Auto) % (1.0-10.0) % (1.0-10.0) Eosinophils (%) (Auto) % (0.0-3.0) % (0.0-3.0) Basophils (%) (Auto) % (0.0-2.0) % (0.0-2.0) Urine Color Pale yellow Urine Appearance Slightly cloudy Urine pH 5 (4.5-8.0) Urine Specific [place] 1.010 (1.005-1.035) Urine Protein Negative (NEGATIVE) Urine Glucose (UA) Negative (NEGATIVE) Urine Ketones Negative (NEGATIVE) Urine Blood 4+ (NEGATIVE) H Urine Nitrite Positive (NEGATIVE) H Urine Bilirubin Negative (NEGATIVE) Urine Urobilinogen Normal MG/DL (0.0-1.0) Urine Leukocyte Esterase 3+ (NEGATIVE) H Urine RBC 10-15 /HPF (0 - 2) H Urine WBC 60-80 /HPF (0 - 2) H Urine Squamous Epithelial Cells Moderate /LPF (NONE/OCC) H Urine Bacteria Many /HPF (NONE) H Sodium Level 133 MMOL/L (136-145) L 135 MMOL/L (136-145) L Potassium Level 4.5 MMOL/L (3.5-5.1) 4.2 MMOL/L (3.5-5.1) Chloride Level 96 MMOL/L (98-107) L 98 MMOL/L (98-107) Carbon Dioxide Level 27 MMOL/L (21-32) 28 MMOL/L (21-32) Anion Gap 10 mmol/L (5-15) 9 mmol/L (5-15) Blood Urea Nitrogen 12 mg/dL (7-18) 14 mg/dL (7-18) Creatinine 0.5 MG/DL (0.55-1.30) L 0.7 MG/DL (0.55-1.30) Estimat Glomerular Filtration Rate mL/min (>60) mL/min (>60) Glucose Level 124 MG/DL (74-106) H 102 MG/DL (74-106) Lactic Acid Level 1.80 mmol/L (0.4-2.0) Calcium Level 9.2 MG/DL (8.5-10.1) 9.3 MG/DL (8.5-10.1) Phosphorus Level 3.0 MG/DL (2.5-4.9) Magnesium Level 1.6 MG/DL (1.8-2.4) L 1.6 MG/DL (1.8-2.4) L Total Bilirubin 0.4 MG/DL (0.2-1.0) Aspartate Amino Transf (AST/SGOT) 19 U/L (15-37) Alanine Aminotransferase (ALT/SGPT) 19 U/L (12-78) Alkaline Phosphatase 127 U/L (46-116) H Total Creatine Kinase 65 U/L (26-308) Creatine Kinase MB 0.6 NG/ML (0.0-3.6) Creatine Kinase MB Relative Index 0.9 Troponin I 0.000 ng/mL (0.000-0.056) Total Protein 8.7 G/DL (6.4-8.2) H Albumin 2.8 G/DL (3.4-5.0) L Globulin 5.9 g/dL Albumin/Globulin Ratio 0.5 (1.0-2.7) L Differential Total Cells Counted 100 Neutrophils % (Manual) 72 % (45-75) Lymphocytes % (Manual) 10 % (20-45) L Monocytes % (Manual) 4 % (1-10) Eosinophils % (Manual) 2 % (0-3) Basophils % (Manual) 0 % (0-2) Band Neutrophils 12 % (0-8) H Platelet Estimate Adequate Platelet Morphology Normal Anisocytosis 1+ Arterial Blood pH 7.387 (7.350-7.450) Arterial Blood Partial Pressure CO2 47.6 mmHg (35.0-45.0) H Arterial Blood Partial Pressure O2 71.8 mmHg (75.0-100.0) L Arterial Blood HCO3 28.0 mmol/L (22.0-26.0) H Arterial Blood Oxygen Saturation 93.9 % (95-100) L Arterial Blood Base Excess 2.3 (-2-2) H Juve Test Positive Current Medications Medications (Trade) Dose Ordered Sig/Mj Route PRN Reason Start Time Stop Time Status Last Admin Dose Admin Acetaminophen (Tylenol) 650 mg Q4H PRN ORAL Mild Pain/Temp > 100.5 01/16/19 13:00 02/15/19 08:59 Albuterol/ Ipratropium (Albuterol/ Ipratropium) 3 ml Q4HRT HHN 01/16/19 15:00 01/21/19 02:59 Ampicillin Sodium/ Sulbactam Sodium 1.5 gm/Sodium Chloride 55 ml @ 110 mls/hr Q12HR IVPB 01/16/19 21:00 01/23/19 08:59 Atorvastatin Calcium (Lipitor) 10 mg BEDTIME ORAL 01/16/19 21:00 02/15/19 20:59 Baclofen (Lioresal) 10 mg THREE TIMES A DAY ORAL 01/16/19 13:00 02/15/19 08:59 Dextrose/Sodium Chloride 1,000 ml @ 75 mls/hr [id number] IV 01/16/19 12:15 02/15/19 10:59 Furosemide (Lasix) 20 mg DAILY ORAL 01/17/19 09:00 02/15/19 08:59 Hydralazine HCl (Apresoline) 50 mg EVERY 8 HOURS ORAL 01/16/19 14:00 02/15/19 05:59 Levofloxacin (Levaquin) 500 mg DAILY ORAL 01/17/19 09:00 01/23/19 08:59 Metformin HCl (Glucophage) 500 mg TWICE A DAY ORAL 01/16/19 18:00 02/15/19 08:59 Pantoprazole (Protonix) 40 mg DAILY ORAL 01/17/19 09:00 02/15/19 08:59 Patient Own Medication (Patient's Own Med) 1 ea QOD SUBQ 01/18/19 09:00 02/17/19 08:59 Polyethylene Glycol (Miralax) 17 gm THREE TIMES A DAY ORAL 01/16/19 13:00 02/15/19 08:59 Ramipril (Altace) 5 mg BID ORAL 01/16/19 18:00 02/15/19 08:59 Tizanidine HCl (Zanaflex) 4 mg THREE TIMES A DAY ORAL 01/16/19 13:00 02/15/19 08:59 Triamterene/HCTZ (Dyazide) 1 cap DAILY ORAL 01/17/19 09:00 02/15/19 08:59 Vancomycin HCl (Vanco rx to dose) 1 ea DAILY MISC 01/16/19 13:00 02/15/19 12:59 Vancomycin HCl 1 gm/Dextrose 275 ml @ 183.708 mls/hr Q8H IVPB 01/16/19 18:00 01/21/19 01:59 Carroll Miller MD January 16, 2019 13:11
--- NOTE | 2019-01-16 13:24 | NUR ---
ST NOTE: BEDSIDE SWALLOW EVAL RECEIVED BEDSIDE SWALLOW EVAL ORDER CHART REVIEWED PRIOR THE EVALUATION REFERRED BY PRIMARY MD, DR. NOLEN PT IS A 73-YEAR-OLD FEMALE WHO WAS ADMITTED FOR PNA. PER CAREGIVER, PT HAS BEEN COUGHING FOR 3 DAYS; AND ALSO HAS FEVER FOR 2 DAYS. PT HAS MEDICAL HISTORY RELATED TO DYSPHAGIA: MULTIPLE SCLEROSIS FOR 40 YEARS, CHF, HTN, DMII, SMALL HIATAL HERNIA, MORBID OBESITY. PER RECENT CHEST XRAY: Persistent right upper lobe infiltrate and probable infiltrate left lung base. This could be due to pneumonia or asymmetric edema. Improved interstitial edema over one day PT LIVES AT HOME WITH CAREGIVER AND PT WAS EATING REGULAR FOOD. NO POLST WAS NOTED IN THE CHART. CURRENT STATUS: PT SEEN AT BEDSIDE DURING LUNCH. PER CHART, RAPID RESPONSE TEAM WAS CALLED AROUND 1030, LOW BP WAS NOTED, AND PT ORIENTED X 1. WHEN SEEING PT DURING LUNCH, PT'S CAREGIVER PRESENTED, PT ALERT, COOPERATIVE, ABLE TO FOLLOW DIRECTIONS, ORIENTED X 3, UNABLE TO RECALL THE YEAR AND THE DATE. PT WITH NASAL CANNULA(2L), HEART RATE: 108-120s INCONSISTENT COUGHING WAS NOTED WITHOUT EATING/DRINKING. PT DENIED ANY SWALLOWING DIFFICULTY. PER CAREGIVER, PT DECREASED APPETITE; BUT SLOWLY GETS BETTER. COMPLETED MEAL WITH PT, PT WAS FED BY CAREGIVER. PO INCLUDED: THIN(STRAW), NECTAR THICK(TSP), PUREE(TSP) AND MASTICATED SOLID. INITIAL IMPRESSION: ORAL MOTOR EXAMINATION: MISSING SOME TEETH, MILDLY REDUCED LABIAL RANGE OF MOTION AND STRENGTH, TONGUE IS IN MIDLINE, SLOW BUT FUNCTIONAL LINGUAL MOVEMENT AND STRENGTH. SLOW BUT FUNCTIONAL MASTICATION TIME, MILDLY INCREASED ORAL TRANSIT TIME(3 TO 4 SECONDS) FROM ANTERIORLY TO POSTERIORLY, UNTIL PT TRIGGERED SWALLOW RESPONSE, LARYNGEAL ELEVATION SEEMED ADEQUATE, DELAYED COUGHING WAS NOTED POST SWALLOW BUT VOICE IS CLEAR, QUESTIONABLE RELATED TO ASPIRATION. DUE TO PT HAS NEW ONSET OF PNA AND H/O OF CHRONIC MULTIPLE SCLEROSIS, PT HAS (HIGH) RISK FOR ASPIRATION. DISCUSSED WITH PT AND CAREGIVER RE: BEDSIDE SWALLOW EVAL AND RECOMMENDATIONS. PER PT, DOES NOT WANT TO HAVE ANY RESTRICTIVE DIET AT THIS TIME(CHOPPED FOOD OR THICKENED LIQUIDS). RECOMMENDATIONS: 1. FOR QUALITY OF LIFE, CONTINUE CCHO(MEDIUM) MODIFIED REGULAR WITH THIN LIQUID DIET. 2. STRICT ASPIRATION PRECAUTIONS WITH 1TO1 FEEDING 3. MODIFIED BARIUM SWALLOW STUDY TO OBJECTIVELY ASSESS PT'S SWALLOWING FUNCTION AND R/O ANY (SILENT) ASPIRATION AND ETIOLOGY. 4. SKILLED ST SERVICE TO FOLLOW UP. D/W PT, CAREGIVER, AND RNKAT POSTED ASPIRATION PRECAUTIONS SIGN. Addendum: 01/16/19 at 1331 by GONZALO [employer] LEADER PROBABLE MILD OR WORSENED OROPHARYNGEAL DYSPHAGIA
[2019-01-16] MEDS: Miralax 17gm pkt ORAL SCH ×2 (13:50→18:03)
--- NOTE | 2019-01-16 15:30 | NUR ---
NURSE NOTES:WOUND CARE NOTES:Pt presented on admission with morbid obesity,Pressure injuries ,MASD bilat breasts folds.abd folds bilat groin and medial aspects of both thighs.Erythema with denuded skin noted to affected areas. Moisture intertrigo noted to R groin.Scattered Nevi noted to back and medial aspects of both upper thighs.Pt also noted to have numerous skin tags medial upper thighs. Resolving pressure injury noted to sacral area.Base of wound with pink epithelial with surrounding hyperpigmentation .Small wound noted at sacrococcygeal area(L)1.0cm x (W)0.9cm. Base of wound is moist and viable. Hyperpigmentation from previous pressure injury noted in crevices of skin R ischium. Caregiver at bedside and stated pt has Hx of Recurrent pressure injuries to sacrum and R ischium.Hyperpigmentation noted to L ischium. L heel boggy with non-blanchable erythema non-tender when palpated. Non-blanchable erythema with fluctuance at base medial aspect of R heel. (L)1.5cm x (W)2.3cm Edemae and Foot drop noted to both feet. Eschar with surrounding erythema noted to R 1st metatarsal head. Small amt purulent exudate noted when wound minimally palpated. Small partial thickness ulcers without exudate noted to dorsum of R 2nd,3rd,4th and 5th metatarsals.Wounds are erythematous at base .Periwound metatarsals are pale and shiny. Tx.Plan: Wash skin folds of both breasts and abd folds with soap and water. Apply Light dusting of Antifungal powder Q shift. Apply Triad Paste to buttocks both ischial areas, bilat groin and medial /posterior aspects of both upper thighs with each incontinence care. Apply Triad Paste to sacrum.Cover with Optifoam drsg. Change every 3 days and prn. Swab R 1st metatarsal head with Betadine. Cover with Optifoam drsg Daily and prn. Apply Cavilon to both heels .Cover each heel with Optifoam drsg.Change every 7 days and prn. Apply Betadine to dorsals of 2nd,3rd,4th and 5th metatarsals. Bariatric bed with Air fluidized mattress. Reposition at least every 2hours or as tolerated. Off-load heels with pillow.
[2019-01-16 16:00] VITALS: BP 100/55
[2019-01-16] MEDS ORDERED: Tubing IV Secondary IV ONE (16:06)
[2019-01-16] MEDS ORDERED: NS 275ml ONE (16:06)
--- NOTE | 2019-01-16 17:13 | Consultation ---
History of Present Illness General Date patient seen: January 16, 2019 Chief Complaint: Fever Present Illness HPI This is a very pleasant 73-year-old female with multiple medical comorbidities who presented to [facility] emergency department with fevers and shortness of breath. Patient was identified to have a UTI pneumonia and was admitted for medical care management. Upon admission full evaluation was done and patient was identified to have multiple wounds requiring care and management. Surgery was called to evaluate and assist with care. Labs as below. Micro biology noted. Imaging identified. Patient seen, patient evaluated, chart reviewed. Patient family at bedside and discussed care plan with them. Allergies: Coded Allergies: SULFA (SULFONAMIDE ANTIBIOTICS) (Verified Allergy, Unknown, 11/22/17) Medication History Scheduled Baclofen* (Baclofen*), Unknown Dose ORAL THREE TIMES A DAY, (Reported) Ceftriaxone Na/Dextrose,Iso (Ceftriaxone 1 Gm Piggyback), 1 GM IV DAILY, ( Reported) Furosemide* (Lasix*), Unknown Dose ORAL DAILY, (Reported) Hydralazine HCl (Hydralazine HCl), 50 MG ORAL EVERY 8 HOURS Levofloxacin* (Levaquin*), 500 MG ORAL DAILY Lovastatin (Lovastatin), Unknown Dose ORAL BEDTIME, (Reported) Metformin Hcl* (Metformin Hcl*), Unknown Dose ORAL TWICE A DAY, (Reported) Omeprazole Magnesium (Prilosec), Unknown Dose ORAL DAILY, (Reported) Polyethylene Glycol 3350* (Miralax*), 17 GM ORAL THREE TIMES A DAY Ramipril* (Ramipril*), 5 MG ORAL BID Tizanidine Hcl* (Zanaflex*), Unknown Dose ORAL THREE TIMES A DAY, (Reported) Triamterene/Hydrochlorothiazid (Dyazide 37.5-25 Capsule), 1 EACH PO DAILY Patient History Limited by: medical condition History Provided By: Medical Record, PMD Healthcare decision maker jennifer brother Resuscitation status Full Code Advanced Directive on File Past Medical/Surgical History Past Medical/Surgical History: (1) Tachycardia (2) Obesities, morbid (3) Obstipation (4) Hypoxemia (5) Encounter for generalized patient complaints (6) Multiple sclerosis (7) Urinary tract infection (8) Pneumonia Review of Systems ROS Narrative Patient is resting comfortably but does open eyes and responds to commands but is able unable to hold a complete conversation. She is unable to participate in examination. Physical Exam General Appearance: no apparent distress Lines, tubes and drains: peripheral HEENT: normocephalic, mucous membranes moist Neck: supple, normal inspection Respiratory/Chest: no respiratory distress, no accessory muscle use, decreased breath sounds Cardiovascular/Chest: regular rhythm, tachycardia Abdomen: non tender, soft, decreased bowel sounds, distended Extremities: other Skin Exam: other Neurologic: alert, responsive Last 24 Hour Vital Signs Date Time Temp Pulse Resp B/P (MAP) Pulse Ox O2 Delivery O2 Flow Rate FiO2 01/16/19 16:00 2.0 01/16/19 15:55 106 18 99 Nasal Cannula 2.0 01/16/19 15:45 102 16 94 Nasal Cannula 2.0 01/16/19 15:45 28 01/16/19 15:24 104 01/16/19 14:00 111/54 01/16/19 12:00 2.0 01/16/19 12:00 98.0 120 24 111/54 (73) 96 01/16/19 11:35 103 18 99 Nasal Cannula 2.0 01/16/19 11:30 107 01/16/19 11:25 28 01/16/19 11:25 108 16 93 Nasal Cannula 2.0 01/16/19 09:00 Nasal Cannula 2.0 01/16/19 08:52 138/79 01/16/19 08:00 2.0 01/16/19 08:00 99.9 133 24 138/79 (98) 94 01/16/19 08:00 129 01/16/19 07:28 103 18 98 Nasal Cannula 2.0 01/16/19 07:18 Nasal Cannula 2.0 01/16/19 07:18 28 01/16/19 07:18 93 Nasal Cannula 2.0 01/16/19 07:18 105 16 93 Nasal Cannula 2.0 01/16/19 05:58 153/82 01/16/19 04:00 2.0 01/16/19 04:00 110 01/16/19 04:00 97.7 121 20 153/82 (105) 96 01/16/19 03:42 Nasal Cannula 2.0 01/16/19 03:42 92 Nasal Cannula 2.0 01/16/19 03:39 118 18 98 Nasal Cannula 2.0 01/16/19 03:20 28 01/16/19 03:17 112 18 93 Nasal Cannula 2.0 28 01/16/19 00:00 2.0 01/16/19 00:00 110 01/16/19 00:00 98.0 113 16 100/58 (72) 97 01/15/19 23:38 Nasal Cannula 2.0 01/15/19 22:52 98.2 120 18 113/67 100 Room Air 01/15/19 22:48 98.3 123 115/50 (71) 94 01/15/19 19:20 120 15 Nasal Cannula 2.0 01/15/19 19:20 100.5 120 15 121/76 98 Nasal Cannula 2.0 01/15/19 18:40 100.5 01/15/19 18:28 100.5 120 15 119/48 98 Nasal Cannula 2.0 Intake and Output 01/15/19 01/16/19 19:00 07:00 Intake Total 1110 ml Output Total 100 ml Balance 1010 ml IV Total 1110 ml Output Urine Total 100 ml # Bowel Movements 1 Laboratory Tests Test 01/16/19 08:05 01/16/19 10:27 White Blood Count 8.6 K/UL (4.8-10.8) Red Blood Count 5.33 M/UL (4.20-5.40) Hemoglobin 14.4 G/DL (12.0-16.0) Hematocrit 44.9 % (37.0-47.0) Mean Corpuscular Volume 84 FL (80-99) Mean Corpuscular Hemoglobin 27.1 PG (27.0-31.0) Mean Corpuscular Hemoglobin Concent 32.2 G/DL (32.0-36.0) Red Cell Distribution Width 16.8 % (11.6-14.8) H Platelet Count 238 K/UL (150-450) Mean Platelet Volume 8.8 FL (6.5-10.1) Neutrophils (%) (Auto) % (45.0-75.0) Lymphocytes (%) (Auto) % (20.0-45.0) Monocytes (%) (Auto) % (1.0-10.0) Eosinophils (%) (Auto) % (0.0-3.0) Basophils (%) (Auto) % (0.0-2.0) Differential Total Cells Counted 100 Neutrophils % (Manual) 72 % (45-75) Lymphocytes % (Manual) 10 % (20-45) L Monocytes % (Manual) 4 % (1-10) Eosinophils % (Manual) 2 % (0-3) Basophils % (Manual) 0 % (0-2) Band Neutrophils 12 % (0-8) H Platelet Estimate Adequate Platelet Morphology Normal Anisocytosis 1+ Sodium Level 135 MMOL/L (136-145) L Potassium Level 4.2 MMOL/L (3.5-5.1) Chloride Level 98 MMOL/L (98-107) Carbon Dioxide Level 28 MMOL/L (21-32) Anion Gap 9 mmol/L (5-15) Blood Urea Nitrogen 14 mg/dL (7-18) Creatinine 0.7 MG/DL (0.55-1.30) Estimat Glomerular Filtration Rate mL/min (>60) Glucose Level 102 MG/DL (74-106) Calcium Level 9.3 MG/DL (8.5-10.1) Magnesium Level 1.6 MG/DL (1.8-2.4) L Arterial Blood pH 7.387 (7.350-7.450) Arterial Blood Partial Pressure CO2 47.6 mmHg (35.0-45.0) H Arterial Blood Partial Pressure O2 71.8 mmHg (75.0-100.0) L Arterial Blood HCO3 28.0 mmol/L (22.0-26.0) H Arterial Blood Oxygen Saturation 93.9 % (95-100) L Arterial Blood Base Excess 2.3 (-2-2) H Juve Test Positive Height (Feet): 5 Height (Inches): 7.00 Weight (Pounds): 220 Medications Current Medications Medications (Trade) Dose Ordered Sig/Mj Route PRN Reason Start Time Stop Time Status Last Admin Dose Admin Acetaminophen (Tylenol) 650 mg Q4H PRN ORAL Mild Pain/Temp > 100.5 01/16/19 13:00 02/15/19 08:59 Albuterol/ Ipratropium (Albuterol/ Ipratropium) 3 ml Q4HRT HHN 01/16/19 15:00 01/21/19 02:59 01/16/19 15:45 Atorvastatin Calcium (Lipitor) 10 mg BEDTIME ORAL 01/16/19 21:00 02/15/19 20:59 Baclofen (Lioresal) 10 mg THREE TIMES A DAY ORAL 01/16/19 13:00 02/15/19 08:59 01/16/19 13:50 Dextrose/Sodium Chloride 1,000 ml @ 75 mls/hr [id number] IV 01/16/19 12:15 02/15/19 10:59 Furosemide (Lasix) 20 mg DAILY ORAL 01/17/19 09:00 02/15/19 08:59 Hydralazine HCl (Apresoline) 50 mg EVERY 8 HOURS ORAL 01/16/19 14:00 02/15/19 05:59 Metformin HCl (Glucophage) 500 mg TWICE A DAY ORAL 01/16/19 18:00 02/15/19 08:59 Pantoprazole (Protonix) 40 mg DAILY ORAL 01/17/19 09:00 02/15/19 08:59 Patient Own Medication (Patient's Own Med) 1 ea QOD SUBQ 01/18/19 09:00 02/17/19 08:59 Piperacillin Sod/ Tazobactam Sod 3.375 gm/Dextrose 100 ml @ 25 mls/hr EVERY 8 HOURS IVPB 01/16/19 14:30 01/21/19 14:29 01/16/19 15:16 Polyethylene Glycol (Miralax) 17 gm THREE TIMES A DAY ORAL 01/16/19 13:00 02/15/19 08:59 01/16/19 13:50 Ramipril (Altace) 5 mg BID ORAL 01/16/19 18:00 02/15/19 08:59 Tizanidine HCl (Zanaflex) 4 mg THREE TIMES A DAY ORAL 01/16/19 13:00 02/15/19 08:59 01/16/19 13:50 Triamterene/HCTZ (Dyazide) 1 cap DAILY ORAL 01/17/19 09:00 02/15/19 08:59 Vancomycin HCl (Vanco rx to dose) 1 ea DAILY MISC 01/16/19 13:00 02/15/19 12:59 Vancomycin HCl 1 gm/Dextrose 275 ml @ 183.708 mls/hr Q8H IVPB 01/16/19 18:00 01/21/19 01:59 Assessment/Plan Problem List: (1) Decubital ulcer Assessment & Plan: Pt presented on admission with multiple ,Pressure injuries, MASD bilateral breasts folds, abd folds, bilateral groin and medial aspects of both thighs. Erythema with denuded skin noted to affected areas. Moisture intertrigo noted to R groin. Scattered Nevi noted to back and medial aspects of both upper thighs.Pt also noted to have numerous skin tags medial upper thighs. Resolving pressure injury noted to sacral area.Base of wound with pink epithelial with surrounding hyperpigmentation .Small wound noted at sacrococcygeal area(L)1.0cm x (W)0.9cm. Base of wound is moist and viable. Hyperpigmentation from previous pressure injury noted in crevices of skin R ischium. Caregiver at bedside and stated pt has Hx of Recurrent pressure injuries to sacrum and R ischium.Hyperpigmentation noted to L ischium. L heel boggy with non-blanchable erythema non-tender when palpated. Non-blanchable erythema with fluctuance at base medial aspect of R heel. (L) 1.5cm x (W)2.3cm Edemae and Foot drop noted to both feet. Eschar with surrounding erythema noted to R 1st metatarsal head. Small amt purulent exudate noted when wound minimally palpated. Small partial thickness ulcers without exudate noted to dorsum of R 2nd,3rd,4th and 5th metatarsals.Wounds are erythematous at base .Periwound metatarsals are pale and shiny. Tx.Plan: Wash skin folds of both breasts and abd folds with soap and water. Apply Light dusting of Antifungal powder every shift. Apply Triad Paste to buttocks both ischial areas, bilat groin and medial / posterior aspects of both upper thighs with each incontinence care. Apply Triad Paste to sacrum.Cover with Optifoam drsg. Change every 3 days and prn. Swab R 1st metatarsal head with Betadine. Cover with Optifoam drsg Daily and prn. Apply Cavilon to both heels .Cover each heel with Optifoam drsg.Change every 7 days and prn. Apply Betadine to dorsals of 2nd,3rd,4th and 5th metatarsals. Bariatric bed with Air fluidized mattress. Reposition at least every 2hours or as tolerated. Off-load heels with pillow. ICD Codes: L89.90 - Pressure ulcer of unspecified site, unspecified stage SNOMED: 935330456 (2) Multiple sclerosis ICD Codes: G35 - Multiple sclerosis SNOMED: 36998432 (3) Obstipation Assessment & Plan: abdomen distended KUB ordered exam without tenderness decreased bowel sounds possible ileus will follow with exam ICD Codes: K59.00 - Constipation, unspecified SNOMED: 371672826 (4) Urinary tract infection ICD Codes: N39.0 - Urinary tract infection, site not specified SNOMED: 22470417 (5) Hypoxemia ICD Codes: R09.02 - Hypoxemia SNOMED: 897984680 (6) Tachycardia ICD Codes: R00.0 - Tachycardia, unspecified SNOMED: 4208082 (7) Pneumonia ICD Codes: J18.9 - Pneumonia, unspecified organism SNOMED: 366515435 (8) Obesities, morbid Assessment & Plan: Nutrition consult bariatric bed ICD Codes: E66.01 - Morbid (severe) obesity due to excess calories SNOMED: 675040779, 77367130809506 (9) Encounter for generalized patient complaints ICD Codes: Z00.8 - Encounter for other general examination SNOMED: 174705917 John Toledo January 16, 2019 17:13
[2019-01-16] MEDS ORDERED: Vancomycin 1 GM in D5W 275 ML IVPB SCH (18:00)
[2019-01-16] MEDS: metFORMIN 500mg tab ORAL SCH (18:03)
--- NOTE | 2019-01-16 19:22 | NUR ---
HAND-OFF: Report given to Sarah STATON. Pt. remain stable.
--- NOTE | 2019-01-16 19:30 | NUR ---
NURSE NOTES: Received Pt is resting on the bed and awake and confused. Family; son stay at bedside. IV site intact and no sign of acute distress noted. On O2 2L via nasal cannula and SaO2 98%. Denied pain at this time. Placed fall precaution. Will continue to care plan.
--- NOTE | 2019-01-16 19:42 | Cardiology Progress Note ---
Assessment/Plan Assessment/Plan [id number] hold all bp med ivf wtch for sepsis echo dupelx Objective Last 24 Hour Vital Signs Date Time Temp Pulse Resp B/P (MAP) Pulse Ox O2 Delivery O2 Flow Rate FiO2 01/16/19 18:00 100/55 01/16/19 16:00 98.8 108 22 100/55 (70) 98 01/16/19 16:00 2.0 01/16/19 15:55 106 18 99 Nasal Cannula 2.0 01/16/19 15:45 102 16 94 Nasal Cannula 2.0 28 01/16/19 15:45 28 01/16/19 15:24 104 01/16/19 14:00 111/54 01/16/19 12:00 2.0 01/16/19 12:00 98.0 120 24 111/54 (73) 96 01/16/19 11:35 103 18 99 Nasal Cannula 2.0 01/16/19 11:30 107 01/16/19 11:25 28 01/16/19 11:25 108 16 93 Nasal Cannula 2.0 01/16/19 09:00 Nasal Cannula 2.0 01/16/19 08:52 138/79 01/16/19 08:00 2.0 01/16/19 08:00 99.9 133 24 138/79 (98) 94 01/16/19 08:00 129 01/16/19 07:28 103 18 98 Nasal Cannula 2.0 01/16/19 07:18 Nasal Cannula 2.0 01/16/19 07:18 28 01/16/19 07:18 93 Nasal Cannula 2.0 01/16/19 07:18 105 16 93 Nasal Cannula 2.0 01/16/19 05:58 153/82 01/16/19 04:00 2.0 01/16/19 04:00 110 01/16/19 04:00 97.7 121 20 153/82 (105) 96 01/16/19 03:42 Nasal Cannula 2.0 01/16/19 03:42 92 Nasal Cannula 2.0 01/16/19 03:39 118 18 98 Nasal Cannula 2.0 01/16/19 03:20 28 01/16/19 03:17 112 18 93 Nasal Cannula 2.0 01/16/19 00:00 2.0 01/16/19 00:00 110 01/16/19 00:00 98.0 113 16 100/58 (72) 97 01/15/19 23:38 Nasal Cannula 2.0 01/15/19 22:52 98.2 120 18 113/67 100 Room Air 01/15/19 22:48 98.3 123 115/50 (71) 94 Intake and Output 01/15/19 01/16/19 19:00 07:00 Intake Total 1110 ml Output Total 100 ml Balance 1010 ml IV Total 1110 ml Output Urine Total 100 ml # Bowel Movements 1 Laboratory Tests Test 01/16/19 08:05 01/16/19 10:27 White Blood Count 8.6 K/UL (4.8-10.8) Red Blood Count 5.33 M/UL (4.20-5.40) Hemoglobin 14.4 G/DL (12.0-16.0) Hematocrit 44.9 % (37.0-47.0) Mean Corpuscular Volume 84 FL (80-99) Mean Corpuscular Hemoglobin 27.1 PG (27.0-31.0) Mean Corpuscular Hemoglobin Concent 32.2 G/DL (32.0-36.0) Red Cell Distribution Width 16.8 % (11.6-14.8) H Platelet Count 238 K/UL (150-450) Mean Platelet Volume 8.8 FL (6.5-10.1) Neutrophils (%) (Auto) % (45.0-75.0) Lymphocytes (%) (Auto) % (20.0-45.0) Monocytes (%) (Auto) % (1.0-10.0) Eosinophils (%) (Auto) % (0.0-3.0) Basophils (%) (Auto) % (0.0-2.0) Differential Total Cells Counted 100 Neutrophils % (Manual) 72 % (45-75) Lymphocytes % (Manual) 10 % (20-45) L Monocytes % (Manual) 4 % (1-10) Eosinophils % (Manual) 2 % (0-3) Basophils % (Manual) 0 % (0-2) Band Neutrophils 12 % (0-8) H Platelet Estimate Adequate Platelet Morphology Normal Anisocytosis 1+ Sodium Level 135 MMOL/L (136-145) L Potassium Level 4.2 MMOL/L (3.5-5.1) Chloride Level 98 MMOL/L (98-107) Carbon Dioxide Level 28 MMOL/L (21-32) Anion Gap 9 mmol/L (5-15) Blood Urea Nitrogen 14 mg/dL (7-18) Creatinine 0.7 MG/DL (0.55-1.30) Estimat Glomerular Filtration Rate mL/min (>60) Glucose Level 102 MG/DL (74-106) Calcium Level 9.3 MG/DL (8.5-10.1) Magnesium Level 1.6 MG/DL (1.8-2.4) L Arterial Blood pH 7.387 (7.350-7.450) Arterial Blood Partial Pressure CO2 47.6 mmHg (35.0-45.0) H Arterial Blood Partial Pressure O2 71.8 mmHg (75.0-100.0) L Arterial Blood HCO3 28.0 mmol/L (22.0-26.0) H Arterial Blood Oxygen Saturation 93.9 % (95-100) L Arterial Blood Base Excess 2.3 (-2-2) H Juve Test Positive Microbiology Date/Time Source Procedure Growth Status 01/15/19 16:14 Nasal Nares - Final Complete 01/15/19 16:14 Nasal Nares - Final Complete 01/15/19 16:14 Urine,Clean Catch Urine Culture - Preliminary Gram Negative Bacillus 1 Resulted Krishna Perry MD January 16, 2019 19:42
[2019-01-16 20:00] VITALS: BP 101/61
--- NOTE | 2019-01-16 21:09 | NUR ---
NURSE NOTES: Pt refused to take medication of Lipitor 10mg PO. Explained benefits and risks. Medication was already opened and discard medication.
--- NOTE | 2019-01-16 23:45 | Consultation ---
DATE OF CONSULTATION: 01/16/2019 INFECTIOUS DISEASE CONSULTATION CONSULTING PHYSICIAN: Carroll Miller M.D. ATTENDING PHYSICIAN: Robb Quiroz M.D. REFERRING PHYSICIAN: Robb Quiroz M.D. The patient is in the ROBBY. REASON FOR CONSULTATION: Urinary tract infection, pyelonephritis, fevers, and pneumonia. CHIEF COMPLAINT: The patient's chief complaint coming in to the hospital is aspiration, multiple sclerosis, pneumonia, and shortness of breath. HISTORY OF PRESENT ILLNESS: This is a very pleasant 73-year-old female, who has history of multiple sclerosis. The patient has a caregiver at the bedside and she said, the patient is from home. The patient has a suprapubic catheter. The patient presented to [facility] with congestion. She is also febrile and was noted to have urinary tract infection and possible pneumonia versus pulmonary edema. Infectious Disease consultation is requested. The patient currently is on Unasyn and vancomycin. I am going to switch her to Zosyn and vancomycin. Cultures are pending. MAR was noted. Orders were noted. Notes and records were reviewed. REVIEW OF SYSTEMS: CONSTITUTIONAL: Main issue is generalized weakness secondary to multiple sclerosis. She is alert and responsive. She came in with fevers. HEAD AND NECK: No head pain or neck stiffness or neck pain. CARDIAC: No chest pain. GASTROINTESTINAL: No nausea, vomiting, or diarrhea. GENITOURINARY: She has a suprapubic catheter. PULMONARY: She has cough, congestion, and shortness of breath. No secretions. SKIN: Reviewed. No rash or itching. EXTREMITY: No extremity pain. NEUROLOGIC: No seizures. Denies fatigue or weakness. PAST MEDICAL HISTORY: The patient has a past medical history of the following. The patient has a past medical history of multiple sclerosis and neurogenic bladder requiring a suprapubic catheter. She has history of obesity and quadriplegia. She has a history of hypertension, hyperlipidemia or dyslipidemia. No history of diabetes type 2 or diabetes mellitus. She also has a history of colonic polyps, anemia, and colonoscopy. ALLERGIES: Includes sulfonamides. I believe sulfa also. No penicillin allergy. SOCIAL HISTORY: Negative for smoking, alcohol, or drug abuse. FAMILY HISTORY: Noncontributory. MEDICATIONS: Upon reviewing the MAR, the patient is on the following medications. She is on her home medications. She is on Lasix. She is on Levaquin, which I will discontinue. She is on pantoprazole. She is on Dyazide. She was on Unasyn, which I stopped also. She is on atorvastatin, vancomycin, metformin, Altace, albuterol, hydralazine, acetaminophen, , polyethylene, and Zanaflex. Vancomycin and Zosyn have been started. Outside medications were noted and reconciliated. PHYSICAL EXAM: VITAL SIGNS: Currently, her temperature is 98.0, her pulse rate is 120, her respiratory rate is 24, her blood pressure is 111/54, and saturation 96% on 2 liters. GENERAL: Alert and responsive, in no acute distress. She seems to be oriented. HEAD AND NECK: Oral exam, no thrush. Eye exam, no icterus. Neck is supple. No jugular venous distention. Normocephalic. LUNGS: Few bilateral rhonchi, rales, and crackles. HEART: Regular. No obvious gallop or murmur. No friction rub. Tachycardic. ABDOMEN: Soft. Positive bowel sounds. Nontender. SKIN: No rash. Her wounds were reviewed. No acutely infected wounds are noted that I reviewed in the pictures. No other rash noted. MUSCULOSKELETAL: No effusion. Legs are without cellulitis. PERIPHERAL VASCULAR: No cyanosis or gangrene. GENITOURINARY: She has a suprapubic catheter. Urine is cloudy. LINE SITES: Without phlebitis. NEUROLOGIC: Generalized weakness secondary to multiple sclerosis, but alert and responsive. LABORATORY DATA: Laboratory data is as follows. Creatinine is 0.7 and sodium 135. Lactic acid level is 1.8. Her white count is normal at 8.6 and hemoglobin 14.4. Her urinalysis had 3+ leukocyte esterase, 60 to 80 white blood cells, and many bacteria. Her cultures are pending. Her chest x-ray showed persistent right upper lobe infiltrate and probable infiltrate in the left lung base. This could be pneumonia or asymmetric edema. Her urine culture with gram-negative bacilli greater than 100,000. Blood and sputum cultures are pending. ASSESSMENT AND PLAN: 1. The patient has what looks like urinary tract infection and pyelonephritis with fevers. The patient's temperature on admission was 100.5. Her urinalysis was fairly positive and certainly could have urinary tract infection with pyelonephritis and complicated urinary tract infection with exacerbation of multiple sclerosis. Urine culture so far shows she has a gram-negative urinary tract infection and pyelonephritis. She also could have pneumonia and has high risk for community-acquired pneumonia also because of multiple sclerosis and aspiration pneumonia. Based on location, it could be aspiration pneumonia and upper lobe infiltrates. This also could be pulmonary edema on the chest x-ray. Based on the workup, I would place her on vancomycin and Zosyn. This will have methicillin-resistant Staphylococcus aureus gram-negative coverage and also aspiration coverage for pneumonia. Zosyn also will be excellent for urinary tract infection and pyelonephritis coverage. Continue vancomycin and Zosyn for now to treat pneumonia, urinary tract infection, and fevers. Of note, lactic acid level was normal. Check final cultures, urine cultures, sputum culture, laboratories, and chest x-ray. 2. Multiple sclerosis. 3. Neurogenic bladder. 4. Suprapubic catheter that is chronic. 5. Morbid obesity. 6. Quadriplegia. 7. Hypertension. 8. Hyperlipidemia. 9. Diabetes type 2. 10. Colonic polyps. 11. Anemia. 12. History of colonoscopy. 13. Social history is negative for smoking, alcohol, or drug abuse. 14. Family history is noncontributory. 15. Allergies to sulfa drugs. 16. MAR was noted. 17. Case was discussed with RN. 18. ROBBY care. 19. Skin care protocol. 20. Continue treatment per Dr. Quiroz and consultants. Carroll Miller M.D. DR: DARÍO JOB#: [id number] CC:
[2019-01-17] VITALS: BP 113/58
[2019-01-17] MEDS: Albuterol/Ipratropium 3ml neb HHN SCH ×7 (00:05→23:38)
[2019-01-17] MEDS: D5NS 1,000 ML IV SCH ×2 (00:32→12:15)
[2019-01-17 04:00] VITALS: BP 151/71
[2019-01-17 04:27] LABS: HEMATOCRIT 34.1 % (37.0-47.0); HEMOGLOBIN 11.2 G/DL (12.0-16.0); MEAN CORPUSCULAR VOLUME 83 FL (80-99); PLATELET COUNT 218 K/UL (150-450); RED CELL DISTRIBUTION WIDTH 16.7 % (11.6-14.8); WHITE BLOOD COUNT 9.5 K/UL (4.8-10.8)
[2019-01-17 04:47] LABS: ALANINE AMINOTRANSFERASE 18 U/L (12-78); ALBUMIN/GLOBULIN RATIO 0.4 (1.0-2.7); ALKALINE PHOSPHATASE 102 U/L (46-116); ANION GAP 8 mmol/L (5-15); ASPARTATE AMINO TRANSFERASE 19 U/L (15-37); BILIRUBIN,TOTAL 0.4 MG/DL (0.2-1.0); BLOOD UREA NITROGEN 20 mg/dL (7-18); CALCIUM 8.5 MG/DL (8.5-10.1); CARBON DIOXIDE 27 MMOL/L (21-32); CHLORIDE 98 MMOL/L (98-107); CREATININE 0.9 MG/DL (0.55-1.30); POTASSIUM 4.1 MMOL/L (3.5-5.1); SODIUM 133 MMOL/L (136-145)
--- NOTE | 2019-01-17 07:46 | NUR ---
HAND-OFF: Report given to SHEMAR Snider. Pt is resting on the bed and no sign of acute distress noted.
--- NOTE | 2019-01-17 07:47 | NUR ---
NURSE NOTES: Received pt and change of shift report from Emelia STATON. Pt is awake, alert, oriented x3, resting in semi-maria's position. Pt is on 2L of oxygen via nasal cannula, with bilateral rhonchi present on auscultation. Tele monitor displays ST, with HR fluctuating from 110-116. Bounding pulses on radial, and weak pulses on pedal, palpated. Peripheral IV access present on right wrist, #20G, infusing D5NS at 75mL/hour. Abdomen is large, round, distended, semi soft/nontender to touch. Pt reports mild LLQ discomfort during the shift mechanic, which is now resolved. Hyperactive bowel sounds on RLQ, RUQ, and hypoactive bowel sounds on LUQ/LLQ auscultated. Suprapubic catheter in place, draining mildly cloudy/yellow urine. Pt is on bariatric bed, with three side rails up, bed is locked, and call light within reach. Will continue to monitor pt and follow plan of care per MD orders and protocol.
[2019-01-17 08:00] VITALS: BP 130/63
--- NOTE | 2019-01-17 08:00 | Consultation ---
DATE OF CONSULTATION: 01/16/2019 CARDIOLOGY CONSULTATION CONSULTING PHYSICIAN: Krishna Perry M.D. REFERRING PHYSICIAN: Robb Quiroz M.D. REASON FOR REFERRAL: Hypertension. HISTORY OF PRESENT ILLNESS: This is a very unfortunate elderly female who has a history of multiple sclerosis. The patient is admitted to the hospital from home for fevers, onset for two days prior to admission and has decrease in energy and generalized lethargy and some coughing and congestion is what her son tells me and is going on. The patient's son was really not able to provide any additional information. It is to be noted that the patient was brought to the emergency room here at [facility] yesterday and was admitted to the hospital this morning and was noted to have, therefore, hypertension; this consultation subsequently requested. In the emergency room, she was noted to have urinary tract infection as well as pneumonia and has been started on some antibiotics. She is really not able to provide any meaningful history. PAST MEDICAL HISTORY: Positive for multiple sclerosis, neurogenic bladder, chronic suprapubic catheter, has history of morbid obesity, quadriplegia, hypertension, hyperlipidemia, diabetes, colonic polyps, and anemia. MEDICATIONS: The patient's medications include Lasix 20 mg daily, Protonix, Dyazide, vancomycin, ramipril, metformin, magnesium sulfate, albuterol, Zosyn, hydralazine every eight hours, Tylenol, baclofen, Glytrol, tizanidine, and vancomycin. ALLERGIES: Sulfonamides. SOCIAL HISTORY: She does not smoke or drink. She lives at home. 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 According to her son, she has a very multitude of smoking longer. REVIEW OF SYSTEMS: GASTROINTESTINAL: The patient is unable to provide, but according to the patient's son, there are no reports of nausea, vomiting, diarrhea, or constipation. GENITOURINARY: She has a catheter in. PULMONARY: Positive for coughing and wheezing. CONSTITUTIONAL: Positive for fevers. CARDIAC: Not obtained. PHYSICAL EXAMINATION: VITAL SIGNS: The patient's blood pressure anywhere between 138/79 although I do not see that is documented in the vital signs. The most recent blood pressure 100/55. GENERAL: Shows to be female, in no respiratory distress. She is sleeping at the present time. NECK: Supple. LUNGS: There are rhonchi noted. CARDIAC: Regular rate and rhythm. No heaves or thrills. ABDOMEN: Soft and obese. Positive bowel sounds. EXTREMITIES: She has some edema, mainly in her thighs. She has fullness in the left inner thigh with skin changes appeared to be chronic in nature. NEUROLOGICAL: She is not responsive or communicative. LABORATORY AND DIAGNOSTIC DATA: EKG shows sinus tachycardia at a rate of 120 with left axis deviation. Telemetry shows sinus rhythm and sinus tachycardia. She did have x-ray of her chest that was performed today showing persistent right upper lobe infiltrate and probable left lung base infiltrates, possibly secondary to pneumonia or asymmetric edema. Venous duplex study of the lower extremities reportedly showed no evidence of deep venous thrombosis significant limitation portion of femoral vein and popliteal vein due to large body habitus and her blood tests show a white count of 8.6 down from 10.3, hemoglobin of 14.4, and platelet count 238,000. Blood gases, pH is 7.38, pCO2 of 48, pO2 of 72, and bicarbonate of 28. Her sodium is 135, potassium 4.2, chloride 98, bicarbonate 28, BUN 14, creatinine 0.7, glucose of 102, magnesium of 1.6, and calcium is 9.3. Troponin yesterday 0.00. Her liver function tests were normal. Her urinalysis, 60 to 80 wbc's. ASSESSMENT AND PLAN: 1. Hypotension, probably multifactorial, possibly volume related versus medication related versus sepsis. 2. Pneumonia. 3. Multiple sclerosis. 4. Diabetes mellitus. 5. Chronic suprapubic catheter. 6. Decubitus ulcers. Dr. Quiroz, this patient was seen in cardiac consultation. The patient should have her medications adjusted for the time being. IV fluids administered. Diuretics will be withheld. Echocardiogram has been ordered and pending. The patient has had a venous duplex study as well. The results are pending at this time. I suspect that probably a combination of medications and volumes as well as possibility of an infection is the etiology or the culprit for the blood pressure being low. I will follow the patient along with you. Holding the medication for the time being. Resuming slowly as becomes necessary. Krishna Perry M.D. DR: ED JOB#: [id number] CC:
[2019-01-17] MEDS ORDERED: Triamterene/Hctz 37.5/25 cap ORAL SCH (09:00)
[2019-01-17] MEDS ORDERED: Levofloxacin 500mg tab ORAL SCH (09:00)
--- NOTE | 2019-01-17 09:09 | NUR ---
RADIOLOGY DEPT., ABDOMEN X-RAY COMPLETED.-P.DYE
[2019-01-17] MEDS: Miralax 17gm pkt ORAL SCH ×3 (09:26→17:43)
[2019-01-17] MEDS: metFORMIN 500mg tab ORAL SCH ×2 (09:27→17:43)
--- NOTE | 2019-01-17 09:42 | NUR ---
ST NOTE: SWALLOW STATUS FOLLOWED UP PT'S CONDITIONS. PT SEEN AT BEDSIDE IN AM. ALERT, COOPERATIVE, VERBAL. PER PT, FEELING BETTER. PT WITH NC(2L). MILDLY CONGESTED. PER PT, DENIED ANY SWALLOWING DIFFICULTY. RECEIVED MODIFIED BARIUM SWALLOW STUDY FROM DR. NOLEN. WILL FOLLOW. REVIEWED THE CHART, PER MD, PT HAS POSS ILEUS. XRAY ABDOMEN WAS TAKEN, PENDING FOR THE RESULT. DISCUSSED WITH RNAYLEEN RE:PT'S CONDITIONS. WILL COMPLETE THE MODIFIED BARIUM SWALLOW STUDY LATER. D/W WITH PTSHEMAR. Addendum: 01/17/19 at 0952 by GONZALO CASAS SPOKE TO RADIOLOGIST, DR. AGUILA RE: PT'S CONDITIONS. PER RADIOLOGIST, OKAY TO PROCEED MODIFIED BARIUM SWALLOW STUDY.
--- NOTE | 2019-01-17 09:47 | Diagnostic Imaging Report ---
Indication: Abdominal pain Comparison: None Single view of the abdomen obtained Findings: Large soft tissue panus noted. The bowel gas pattern is nonobstructive. The bones are moderately osteopenic. There are surgical clips in the abdomen. IMPRESSION: Nonobstructive bowel gas pattern
[2019-01-17 12:00] VITALS: BP 112/66
--- NOTE | 2019-01-17 12:14 | NUR ---
ST NOTE: MODIFIED BARIUM SWALLOW STUDY COMPLETED MODIFIED BARIUM SWALLOW STUDY FULL REPORT WILL FOLLOW IN ST NOTE UNDER CARE ACTIVITY PT ALERT, COOPERATIVE, FOLLOWS DIRECTIONS, PT WITH NASAL CANNULA(2L). OBLIQUE VIEW SECONDARY TO SHOULDER OBSTRUCTION. GIVEN PO TRIALS: THIN(TSPX2/MED CUP/STRAW WITH CHIN DOWN), NECTAR THICK(TSP/MED CUP WITH CHIN DOWN AND HEAD TURN TO L/STRAW(ONE-SIP), HONEY THICK(TSP), PUDDING(TSP), 1/2 SALTINE CRACKER WITH 3CC PUDDING, NECTAR THICK(TSP) WITH LIQUID WASH. IMPRESSION: PT PRESENTS WITH MODERATE OROPHARYNGEAL DYSPHAGIA. ORAL PHASE: SLOW AND PROLONG MASTICATION TIME(12 SECONDS), SIGNIFICANT INCREASED ORAL TRANSIT TIME(11 TO 14 SECONDS), ORAL RESIDUE POST SWALLOW, NOTED IN THE POSTERIOR TONGUE AND PALATE DUE TO SENSORIMOTOR DEFICITS AND SUSPECTED ORAL APRAXIA(REPETITIVE TONGUE MOTION). PHARYNGEAL PHASE: DEEP TRACE LARYNGEAL PENETRATION, NOT EJECTED TO PROBABLE AUDIBLE ASPIRATION(COUGHING) WITH THIN(MED CUP/STRAW) AND NECTAR THICK(MED CUP/STRAW) POST SWALLOW DUE TO DELAYED SWALLOW, REDUCED LARYNGEAL ELEVATION, REDUCED EPIGLOTTIC INVERSION AND REDUCED LARYNGEAL VESTIBULE CLOSURE. TRACE TO COLLECTION OF PHARYNGEAL RESIDUE WITHIN TONGUE BASE, VALLECULAE, ARYEPIGLOTTIC FOLDS, PHARYNGEAL WALL AND PYRIFORM SINUSES SECONDARY TO REDUCED TONGUE BASE RETRACTION, REDUCED EPIGLOTTIC INVERSION AND REDUCED LARYNGEAL ELEVATION. NO SIGNIFICANT ASPIRATION WITH NECTAR THICK(TSP), HONEY THICK, PUDDING AND MASTICATED SOLID BUT HAS HIGH RISK FOR CHRONIC ASPIRATION IF PRECAUTIONS ARE NOT STRICTLY APPLIED. SWALLOW COMPENSATORY STRATEGIES: PT BENEFITS FROM BREATH HOLD WITH EFFORTFUL SWALLOW, ADDITIONAL SWALLOW AND ALLOW TIME. NO CUP OR STRAWS. CHIN TUCK IS NOT EFFECTIVE, USED VOLITIONAL COUGH, NOT EFFECTIVE DUE TO PT HAS WEAK COUGH. RECOMMENDATIONS: 1. FOR QUALITY OF LIFE, CONTINUE ORAL DIET. CHANGED DIET TO CCHO(MEDIUM) MODIFIED SOFT, EASY CHEW WITH NECTAR THICK LIQUIDS(TEASPOON LEVEL). 2. STRICT ASPIRATION PRECAUTIONS WITH 1TO1 FEEDING. 3. SWALLOW/SPEECH/VOICE TREATMENT. D/W PT, PT'S CAREGIVER, AYLEEN STATON AND INFORMED MDNiranjan NOLEN. UPDATED ASPIRATION PRECAUTIONS SIGN.
--- NOTE | 2019-01-17 12:21 | Cardiology Progress Note ---
Assessment/Plan Assessment/Plan 1. Hypotension, probably multifactorial, possibly volume related versus medication related 2. Pneumonia. 3. Multiple sclerosis. 4. Diabetes mellitus. 5. Chronic suprapubic catheter. 6. Decubitus ulcers 7. MS (multiple sclerosis) blood cx neg sofar urine cx postive bp improved will decrease ivf will restart acie low dose soon and increase as needed and add other outpt med as needed will review echo tele personally rev. sinus , borderline sinus tachy all torp neg mentally has improved sib more awake and responsive . Subjective Cardiovascular: Denies: chest pain, lightheadedness, palpitations Respiratory: Denies: shortness of breath Gastrointestinal/Abdominal: Denies: abdominal pain Genitourinary: Denies: burning Objective Last 24 Hour Vital Signs Date Time Temp Pulse Resp B/P (MAP) Pulse Ox O2 Delivery O2 Flow Rate FiO2 01/17/19 10:30 Nasal Cannula 2.0 28 01/17/19 10:30 Nasal Cannula 2.0 28 01/17/19 10:26 98.8 01/17/19 09:00 Nasal Cannula 2.0 01/17/19 08:00 98.8 116 23 130/63 (85) 94 01/17/19 08:00 115 01/17/19 07:05 Nasal Cannula 2.0 01/17/19 07:05 95 Nasal Cannula 2.0 01/17/19 07:05 Nasal Cannula 2.0 28 01/17/19 07:05 Nasal Cannula 2.0 28 01/17/19 04:00 98.6 121 22 151/71 (97) 96 01/17/19 04:00 109 01/17/19 03:13 Nasal Cannula 2.0 01/17/19 03:13 Nasal Cannula 2.0 28 01/17/19 00:00 98.6 76 22 113/58 (76) 96 01/17/19 00:00 104 01/16/19 23:59 98 20 99 Nasal Cannula 2.0 01/16/19 23:50 28 01/16/19 23:50 94 20 96 Nasal Cannula 2.0 01/16/19 21:00 Nasal Cannula 2.0 01/16/19 20:20 Nasal Cannula 2.0 28 01/16/19 20:00 99.1 108 22 101/61 (74) 98 01/16/19 20:00 95 01/16/19 20:00 2.0 01/16/19 19:59 94 16 99 Nasal Cannula 2.0 28 01/16/19 19:56 96 Nasal Cannula 2.0 28 01/16/19 19:55 92 16 96 Nasal Cannula 2.0 28 01/16/19 19:55 28 01/16/19 18:00 100/55 01/16/19 16:00 98.8 108 22 100/55 (70) 98 01/16/19 16:00 2.0 01/16/19 15:55 106 18 99 Nasal Cannula 2.0 28 01/16/19 15:45 102 16 94 Nasal Cannula 2.0 28 01/16/19 15:45 28 01/16/19 15:24 104 01/16/19 14:00 111/54 General Appearance: alert, obese Cardiovascular: normal rate Respiratory/Chest: rhonchi - bilaterally Abdomen: normal bowel sounds, non tender, soft Extremities: trace edema Intake and Output 01/16/19 01/17/19 19:00 07:00 Intake Total 240 ml 1145.000 ml Output Total 400 ml 1300 ml Balance -160 ml -155.000 ml Intake Oral 240 ml 60 ml IV Total 1085.000 ml Output Urine Total 400 ml 1300 ml Laboratory Tests Test 01/17/19 01:29 01/17/19 04:00 Vancomycin Level Trough 38.6 ug/mL (5.0-12.0) H White Blood Count 9.5 K/UL (4.8-10.8) Red Blood Count 4.10 M/UL (4.20-5.40) L Hemoglobin 11.2 G/DL (12.0-16.0) L Hematocrit 34.1 % (37.0-47.0) L Mean Corpuscular Volume 83 FL (80-99) Mean Corpuscular Hemoglobin 27.3 PG (27.0-31.0) Mean Corpuscular Hemoglobin Concent 32.8 G/DL (32.0-36.0) Red Cell Distribution Width 16.7 % (11.6-14.8) H Platelet Count 218 K/UL (150-450) Mean Platelet Volume 8.3 FL (6.5-10.1) Neutrophils (%) (Auto) % (45.0-75.0) Lymphocytes (%) (Auto) % (20.0-45.0) Monocytes (%) (Auto) % (1.0-10.0) Eosinophils (%) (Auto) % (0.0-3.0) Basophils (%) (Auto) % (0.0-2.0) Differential Total Cells Counted 100 Neutrophils % (Manual) 93 % (45-75) H Lymphocytes % (Manual) 5 % (20-45) L Monocytes % (Manual) 2 % (1-10) Eosinophils % (Manual) 0 % (0-3) Basophils % (Manual) 0 % (0-2) Band Neutrophils 0 % (0-8) Platelet Estimate Adequate Platelet Morphology Normal Anisocytosis 1+ Sodium Level 133 MMOL/L (136-145) L Potassium Level 4.1 MMOL/L (3.5-5.1) Chloride Level 98 MMOL/L (98-107) Carbon Dioxide Level 27 MMOL/L (21-32) Anion Gap 8 mmol/L (5-15) Blood Urea Nitrogen 20 mg/dL (7-18) H Creatinine 0.9 MG/DL (0.55-1.30) Estimat Glomerular Filtration Rate mL/min (>60) Glucose Level 144 MG/DL (74-106) H Calcium Level 8.5 MG/DL (8.5-10.1) Magnesium Level 1.8 MG/DL (1.8-2.4) Total Bilirubin 0.4 MG/DL (0.2-1.0) Aspartate Amino Transf (AST/SGOT) 19 U/L (15-37) Alanine Aminotransferase (ALT/SGPT) 18 U/L (12-78) Alkaline Phosphatase 102 U/L (46-116) Troponin I 0.000 ng/mL (0.000-0.056) Total Protein 6.9 G/DL (6.4-8.2) Albumin 2.0 G/DL (3.4-5.0) L Globulin 4.9 g/dL Albumin/Globulin Ratio 0.4 (1.0-2.7) L Microbiology Date/Time Source Procedure Growth Status 01/15/19 16:37 Blood Blood Culture - Preliminary NO GROWTH AFTER 24 HOURS Resulted 01/15/19 16:20 Blood Blood Culture - Preliminary NO GROWTH AFTER 24 HOURS Resulted 01/15/19 16:14 Nasal Nares - Final Complete 01/15/19 16:14 Nasal Nares - Final Complete 01/15/19 16:14 Urine,Clean Catch Urine Culture - Final Escherichia Coli Complete Krishna ePrry MD January 17, 2019 12:21
--- NOTE | 2019-01-17 13:31 | Pulmonology Progress Note ---
Assessment/Plan Assessment/Plan 1. Pneumonia 2. UTI with chronic suprapubic catheter. 3. Multiple sclerosis. 4. Sinus tachycardia 5. Diabetes. 6. Hyponatremia. 7. Neurogenic bladder. 8. Hypertension. 9. Hyperlipidemia. episode of low BP, high HR transferred to ROBBY swallow eval, failed; now soft diet IVF per cardiology ID notes reviewed echo noted Subjective Constitutional: Reports: fever Respiratory: Reports: productive cough, shortness of breath Allergies: Coded Allergies: SULFA (SULFONAMIDE ANTIBIOTICS) (Verified Allergy, Unknown, 11/22/17) Objective Last 24 Hour Vital Signs Date Time Temp Pulse Resp B/P (MAP) Pulse Ox O2 Delivery O2 Flow Rate FiO2 01/17/19 10:30 Nasal Cannula 2.0 28 01/17/19 10:30 Nasal Cannula 2.0 28 01/17/19 10:26 98.8 01/17/19 09:00 Nasal Cannula 2.0 01/17/19 08:00 98.8 116 23 130/63 (85) 94 01/17/19 08:00 115 01/17/19 07:05 Nasal Cannula 2.0 28 01/17/19 07:05 95 Nasal Cannula 2.0 28 01/17/19 07:05 Nasal Cannula 2.0 28 01/17/19 07:05 Nasal Cannula 2.0 28 01/17/19 04:00 98.6 121 22 151/71 (97) 96 01/17/19 04:00 109 01/17/19 03:13 Nasal Cannula 2.0 28 01/17/19 03:13 Nasal Cannula 2.0 28 01/17/19 00:00 98.6 76 22 113/58 (76) 96 01/17/19 00:00 104 01/16/19 23:59 98 20 99 Nasal Cannula 2.0 28 01/16/19 23:50 28 01/16/19 23:50 94 20 96 Nasal Cannula 2.0 28 01/16/19 21:00 Nasal Cannula 2.0 01/16/19 20:20 Nasal Cannula 2.0 28 01/16/19 20:00 99.1 108 22 101/61 (74) 98 01/16/19 20:00 95 01/16/19 20:00 2.0 01/16/19 19:59 94 16 99 Nasal Cannula 2.0 28 01/16/19 19:56 96 Nasal Cannula 2.0 28 01/16/19 19:55 92 16 96 Nasal Cannula 2.0 28 01/16/19 19:55 28 01/16/19 18:00 100/55 01/16/19 16:00 98.8 108 22 100/55 (70) 98 01/16/19 16:00 2.0 01/16/19 15:55 106 18 99 Nasal Cannula 2.0 28 01/16/19 15:45 102 16 94 Nasal Cannula 2.0 28 01/16/19 15:45 28 01/16/19 15:24 104 01/16/19 14:00 111/54 Intake and Output 01/16/19 01/17/19 19:00 07:00 Intake Total 240 ml 1145.000 ml Output Total 400 ml 1300 ml Balance -160 ml -155.000 ml Intake Oral 240 ml 60 ml IV Total 1085.000 ml Output Urine Total 400 ml 1300 ml Objective obese General Appearance: no acute distress HEENT: atraumatic Respiratory/Chest: rhonchi Cardiovascular: regular rhythm, tachycardia Abdomen: soft, non tender Microbiology Date/Time Source Procedure Growth Status 01/15/19 16:37 Blood Blood Culture - Preliminary NO GROWTH AFTER 24 HOURS Resulted 01/15/19 16:20 Blood Blood Culture - Preliminary NO GROWTH AFTER 24 HOURS Resulted 01/15/19 16:14 Nasal Nares - Final Complete 01/15/19 16:14 Nasal Nares - Final Complete 01/15/19 16:14 Urine,Clean Catch Urine Culture - Final Escherichia Coli Complete Laboratory Tests 01/17/19 01:29: Vancomycin Level Trough 38.6H 01/17/19 04:00: White Blood Count 9.5, Red Blood Count 4.10L, Hemoglobin 11.2L, Hematocrit 34.1L , Mean Corpuscular Volume 83, Mean Corpuscular Hemoglobin 27.3, Mean Corpuscular Hemoglobin Concent 32.8, Red Cell Distribution Width 16.7H, Platelet Count 218, Mean Platelet Volume 8.3, Neutrophils (%) (Auto) , Lymphocytes (%) (Auto) , Monocytes (%) (Auto) , Eosinophils (%) (Auto) , Basophils (%) (Auto) , Differential Total Cells Counted 100, Neutrophils % ( Manual) 93H, Lymphocytes % (Manual) 5L, Monocytes % (Manual) 2, Eosinophils % ( Manual) 0, Basophils % (Manual) 0, Band Neutrophils 0, Platelet Estimate Adequate, Platelet Morphology Normal, Anisocytosis 1+, Sodium Level 133L, Potassium Level 4.1, Chloride Level 98, Carbon Dioxide Level 27, Anion Gap 8, Blood Urea Nitrogen 20H, Creatinine 0.9, Estimat Glomerular Filtration Rate , Glucose Level 144H, Calcium Level 8.5, Magnesium Level 1.8, Total Bilirubin 0.4 , Aspartate Amino Transf (AST/SGOT) 19, Alanine Aminotransferase (ALT/SGPT) 18, Alkaline Phosphatase 102, Troponin I 0.000, Total Protein 6.9, Albumin 2.0L, Globulin 4.9, Albumin/Globulin Ratio 0.4L Current Medications Medications (Trade) Dose Ordered Sig/Mj Route PRN Reason Start Time Stop Time Status Last Admin Dose Admin Acetaminophen (Tylenol) 650 mg Q4H PRN ORAL Mild Pain/Temp > 100.5 01/16/19 13:00 02/15/19 08:59 01/17/19 06:02 Albuterol/ Ipratropium (Albuterol/ Ipratropium) 3 ml Q4HRT HHN 01/16/19 15:00 01/21/19 02:59 01/17/19 07:04 Atorvastatin Calcium (Lipitor) 10 mg BEDTIME ORAL 01/16/19 21:00 02/15/19 20:59 Baclofen (Lioresal) 10 mg THREE TIMES A DAY ORAL 01/16/19 13:00 02/15/19 08:59 01/17/19 12:50 Dextrose/Sodium Chloride 1,000 ml @ 50 mls/hr Q20H IV 01/17/19 12:15 02/16/19 12:14 Metformin HCl (Glucophage) 500 mg TWICE A DAY ORAL 01/16/19 18:00 02/15/19 08:59 01/17/19 09:27 Pantoprazole (Protonix) 40 mg DAILY ORAL 01/17/19 09:00 02/15/19 08:59 01/17/19 09:26 Patient Own Medication (Patient's Own Med) 1 ea QOD SUBQ 01/18/19 09:00 02/17/19 08:59 Piperacillin Sod/ Tazobactam Sod 3.375 gm/Dextrose 100 ml @ 25 mls/hr EVERY 8 HOURS IVPB 01/16/19 14:30 01/21/19 14:29 01/17/19 12:50 Polyethylene Glycol (Miralax) 17 gm THREE TIMES A DAY ORAL 01/16/19 13:00 02/15/19 08:59 01/17/19 12:50 Tizanidine HCl (Zanaflex) 4 mg THREE TIMES A DAY ORAL 01/16/19 13:00 02/15/19 08:59 01/17/19 12:50 Vancomycin HCl (Vanco rx to dose) 1 ea DAILY PRN MISC rx protocol 01/17/19 10:00 02/15/19 12:59 Robb Quiroz MD January 17, 2019 13:30
--- NOTE | 2019-01-17 13:56 | NUR ---
*-* INSURANCE *-* ALL CLINICALS AND REVIEW HAVE BEEN FAXED TO: [facility] ..SHE WILL HANDLE THIS ADMISSION.. P- [phone] F- [phone].....REVIEW/CLINICAL
--- NOTE | 2019-01-17 14:19 | Cardiology Report ---
APPROVED REPORT EKG Measurement Heart [id number] Sinus tachycardia Right axis deviation Abnormal ECG
--- NOTE | 2019-01-17 14:52 | NUR ---
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 MULTIPLE SCLEROSIS. UTI VS: BP 112/66, P 116, T 98.8, RR 23, SpO2 94 on 2.0L O2 NC RBC 4.10, H&H 11.2/34.1, Na 133, BUN 30, IS:BACLOFEN 10mg ZANAFLEX 4mg ZOSYN 100ml METFORMIN 500mg D5/NS x1L IV SDU STATUS
--- NOTE | 2019-01-17 15:16 | NUR ---
HAND-OFF: Report given to Chika STATON. Pt is resting in stable conditon with caregiver at bedside. Endorsed plan of care, including submission of pt's own med to pharmacy to be administered tomorrow per Jac pharmacist.
--- NOTE | 2019-01-17 15:20 | NUR ---
NURSE NOTES: Assumed pt care.Report received from Paresh STATON.Pt resting quietly in bed asleep noted o resp distress or discomfort,SR on the monitor,SR up x2 HOB elevated bed lock in lowest position ,will continue with plans of care,caregiver at bedside.
--- NOTE | 2019-01-17 15:39 | Surgery Progress Note ---
Surgery Progress Note Subjective Additional Comments no acute events. comfortable. stable. exam stable. labs noted dressings changed. Objective Last 24 Hour Vital Signs Date Time Temp Pulse Resp B/P (MAP) Pulse Ox O2 Delivery O2 Flow Rate FiO2 01/17/19 15:13 Nasal Cannula 2.0 28 01/17/19 15:13 Nasal Cannula 2.0 28 01/17/19 13:49 98.8 01/17/19 12:00 97.9 108 23 112/66 (81) 98 01/17/19 12:00 92 01/17/19 10:30 Nasal Cannula 2.0 28 01/17/19 10:30 Nasal Cannula 2.0 28 01/17/19 09:00 Nasal Cannula 2.0 01/17/19 08:00 98.8 116 23 130/63 (85) 94 01/17/19 08:00 115 01/17/19 07:05 Nasal Cannula 2.0 28 01/17/19 07:05 95 Nasal Cannula 2.0 28 01/17/19 07:05 Nasal Cannula 2.0 28 01/17/19 07:05 Nasal Cannula 2.0 28 01/17/19 04:00 98.6 121 22 151/71 (97) 96 01/17/19 04:00 109 01/17/19 03:13 Nasal Cannula 2.0 28 01/17/19 03:13 Nasal Cannula 2.0 28 01/17/19 00:00 98.6 76 22 113/58 (76) 96 01/17/19 00:00 104 01/16/19 23:59 98 20 99 Nasal Cannula 2.0 28 01/16/19 23:50 28 01/16/19 23:50 94 20 96 Nasal Cannula 2.0 28 01/16/19 21:00 Nasal Cannula 2.0 01/16/19 20:20 Nasal Cannula 2.0 28 01/16/19 20:00 99.1 108 22 101/61 (74) 98 01/16/19 20:00 95 01/16/19 20:00 2.0 01/16/19 19:59 94 16 99 Nasal Cannula 2.0 28 01/16/19 19:56 96 Nasal Cannula 2.0 28 01/16/19 19:55 92 16 96 Nasal Cannula 2.0 28 01/16/19 19:55 28 01/16/19 18:00 100/55 5/13/19 16:00 98.8 108 22 100/55 (70) 98 01/16/19 16:00 2.0 01/16/19 15:55 106 18 99 Nasal Cannula 2.0 28 01/16/19 15:45 102 16 94 Nasal Cannula 2.0 28 01/16/19 15:45 28 I&O Intake and Output 01/16/19 01/17/19 18:59 06:59 Intake Total 240 ml 1070.000 ml Output Total 400 ml 1300 ml Balance -160 ml -230.000 ml Intake Oral 240 ml 60 ml IV Total 1010.000 ml Output Urine Total 400 ml 1300 ml Dressing: saturated Wound: other Drains: other Cardiovascular: RSR Respiratory: decreased breath sounds Abdomen: soft, present bowel sounds, non-distended Extremities: no tenderness, no cyanosis Laboratory Tests Test 01/17/19 01:29 01/17/19 04:00 Vancomycin Level Trough 38.6 ug/mL (5.0-12.0) H White Blood Count 9.5 K/UL (4.8-10.8) Red Blood Count 4.10 M/UL (4.20-5.40) L Hemoglobin 11.2 G/DL (12.0-16.0) L Hematocrit 34.1 % (37.0-47.0) L Mean Corpuscular Volume 83 FL (80-99) Mean Corpuscular Hemoglobin 27.3 PG (27.0-31.0) Mean Corpuscular Hemoglobin Concent 32.8 G/DL (32.0-36.0) Red Cell Distribution Width 16.7 % (11.6-14.8) H Platelet Count 218 K/UL (150-450) Mean Platelet Volume 8.3 FL (6.5-10.1) Neutrophils (%) (Auto) % (45.0-75.0) Lymphocytes (%) (Auto) % (20.0-45.0) Monocytes (%) (Auto) % (1.0-10.0) Eosinophils (%) (Auto) % (0.0-3.0) Basophils (%) (Auto) % (0.0-2.0) Differential Total Cells Counted 100 Neutrophils % (Manual) 93 % (45-75) H Lymphocytes % (Manual) 5 % (20-45) L Monocytes % (Manual) 2 % (1-10) Eosinophils % (Manual) 0 % (0-3) Basophils % (Manual) 0 % (0-2) Band Neutrophils 0 % (0-8) Platelet Estimate Adequate Platelet Morphology Normal Anisocytosis 1+ Sodium Level 133 MMOL/L (136-145) L Potassium Level 4.1 MMOL/L (3.5-5.1) Chloride Level 98 MMOL/L (98-107) Carbon Dioxide Level 27 MMOL/L (21-32) Anion Gap 8 mmol/L (5-15) Blood Urea Nitrogen 20 mg/dL (7-18) H Creatinine 0.9 MG/DL (0.55-1.30) Estimat Glomerular Filtration Rate mL/min (>60) Glucose Level 144 MG/DL (74-106) H Calcium Level 8.5 MG/DL (8.5-10.1) Magnesium Level 1.8 MG/DL (1.8-2.4) Total Bilirubin 0.4 MG/DL (0.2-1.0) Aspartate Amino Transf (AST/SGOT) 19 U/L (15-37) Alanine Aminotransferase (ALT/SGPT) 18 U/L (12-78) Alkaline Phosphatase 102 U/L (46-116) Troponin I 0.000 ng/mL (0.000-0.056) Total Protein 6.9 G/DL (6.4-8.2) Albumin 2.0 G/DL (3.4-5.0) L Globulin 4.9 g/dL Albumin/Globulin Ratio 0.4 (1.0-2.7) L Plan Problems: (1) Decubital ulcer Assessment & Plan: Pt presented on admission with multiple ,Pressure injuries, MASD bilateral breasts folds, abd folds, bilateral groin and medial aspects of both thighs. Erythema with denuded skin noted to affected areas. Moisture intertrigo noted to R groin. Scattered Nevi noted to back and medial aspects of both upper thighs.Pt also noted to have numerous skin tags medial upper thighs. Resolving pressure injury noted to sacral area.Base of wound with pink epithelial with surrounding hyperpigmentation .Small wound noted at sacrococcygeal area(L)1.0cm x (W)0.9cm. Base of wound is moist and viable. Hyperpigmentation from previous pressure injury noted in crevices of skin R ischium. Caregiver at bedside and stated pt has Hx of Recurrent pressure injuries to sacrum and R ischium.Hyperpigmentation noted to L ischium. L heel boggy with non-blanchable erythema non-tender when palpated. Non-blanchable erythema with fluctuance at base medial aspect of R heel. (L) 1.5cm x (W)2.3cm Edemae and Foot drop noted to both feet. Eschar with surrounding erythema noted to R 1st metatarsal head. Small amt purulent exudate noted when wound minimally palpated. Small partial thickness ulcers without exudate noted to dorsum of R 2nd,3rd,4th and 5th metatarsals.Wounds are erythematous at base .Periwound metatarsals are pale and shiny. Tx.Plan: Wash skin folds of both breasts and abd folds with soap and water. Apply Light dusting of Antifungal powder every shift. Apply Triad Paste to buttocks both ischial areas, bilat groin and medial / posterior aspects of both upper thighs with each incontinence care. Apply Triad Paste to sacrum.Cover with Optifoam drsg. Change every 3 days and prn. Swab R 1st metatarsal head with Betadine. Cover with Optifoam drsg Daily and prn. Apply Cavilon to both heels .Cover each heel with Optifoam drsg.Change every 7 days and prn. Apply Betadine to dorsals of 2nd,3rd,4th and 5th metatarsals. Bariatric bed with Air fluidized mattress. Reposition at least every 2hours or as tolerated. Off-load heels with pillow. (2) Multiple sclerosis (3) Obstipation Assessment & Plan: abdomen distended KUB noted and okay exam without tenderness decreased bowel sounds cont with diet will follow with exam (4) Urinary tract infection (5) Hypoxemia (6) Tachycardia (7) Pneumonia (8) Obesities, morbid Assessment & Plan: Nutrition consult bariatric bed (9) Encounter for generalized patient complaints John Toledo January 17, 2019 15:39
--- NOTE | 2019-01-17 15:59 | Infectious Diseases Prog Note ---
Assessment/Plan Assessment/Plan ASSESSMENT AND PLAN: 1. e.coli uti/pyelonephritis, pneumonia, fevers - zosyn and vancomycin - check sputum culture, labs and chest x-ray - fevers better 2. Multiple sclerosis. 3. Neurogenic bladder. 4. Suprapubic catheter that is chronic. 5. Morbid obesity. 6. Quadriplegia. 7. Hypertension. 8. Hyperlipidemia. 9. Diabetes type 2. 10. Colonic polyps. 11. Anemia. 12. History of colonoscopy. 13. Social history is negative for smoking, alcohol, or drug abuse. 14. Family history is noncontributory. 15. Allergies to sulfa drugs. 16. MAR was noted. 17. Case was discussed with RN. 18. ROBBY care. 19. Wound Skin care protocol. 20. Continue treatment per Dr. Quiroz and consultants. Subjective Constitutional: Reports: fatigue, other - responsive ; Denies: fever HEENT: Reports: congestion - less Respiratory: Reports: shortness of breath - less Cardiovascular: Denies: chest pain Gastrointestinal/Abdominal: Denies: nausea, vomiting, diarrhea Genitourinary: Reports: other - + weber Neurologic: Reports: weakness, other - responsive Psychiatric: Reports: other - na Skin: Denies: rash Hematologic: Denies: bleeding Musculoskeletal: Reports: pain Allergies: Coded Allergies: SULFA (SULFONAMIDE ANTIBIOTICS) (Verified Allergy, Unknown, 11/22/17) Objective Vital Signs Last 24 Hour Vital Signs Date Time Temp Pulse Resp B/P (MAP) Pulse Ox O2 Delivery O2 Flow Rate FiO2 01/17/19 15:13 Nasal Cannula 2.0 28 01/17/19 15:13 Nasal Cannula 2.0 28 01/17/19 13:49 98.8 01/17/19 12:00 97.9 108 23 112/66 (81) 98 01/17/19 12:00 92 01/17/19 10:30 Nasal Cannula 2.0 28 01/17/19 10:30 Nasal Cannula 2.0 28 01/17/19 09:00 Nasal Cannula 2.0 01/17/19 08:00 98.8 116 23 130/63 (85) 94 01/17/19 08:00 115 01/17/19 07:05 Nasal Cannula 2.0 28 01/17/19 07:05 95 Nasal Cannula 2.0 28 01/17/19 07:05 Nasal Cannula 2.0 28 01/17/19 07:05 Nasal Cannula 2.0 28 01/17/19 04:00 98.6 121 22 151/71 (97) 96 01/17/19 04:00 109 01/17/19 03:13 Nasal Cannula 2.0 28 01/17/19 03:13 Nasal Cannula 2.0 28 01/17/19 00:00 98.6 76 22 113/58 (76) 96 01/17/19 00:00 104 01/16/19 23:59 98 20 99 Nasal Cannula 2.0 28 01/16/19 23:50 28 01/16/19 23:50 94 20 96 Nasal Cannula 2.0 28 01/16/19 21:00 Nasal Cannula 2.0 01/16/19 20:20 Nasal Cannula 2.0 28 01/16/19 20:00 99.1 108 22 101/61 (74) 98 01/16/19 20:00 95 01/16/19 20:00 2.0 01/16/19 19:59 94 16 99 Nasal Cannula 2.0 28 01/16/19 19:56 96 Nasal Cannula 2.0 28 01/16/19 19:55 92 16 96 Nasal Cannula 2.0 28 01/16/19 19:55 28 01/16/19 18:00 100/55 01/16/19 16:00 98.8 108 22 100/55 (70) 98 01/16/19 16:00 2.0 01/16/19 15:55 106 18 99 Nasal Cannula 2.0 28 01/16/19 15:45 102 16 94 Nasal Cannula 2.0 28 01/16/19 15:45 28 Height (Feet): 5 Height (Inches): 7.00 Weight (Pounds): 220 General Appearance: no acute distress HEENT: normocephalic, atraumatic, anicteric, EOMI, supple, no JVD Respiratory/Chest: crackles/rales, rhonchi - bilaterally Cardiovascular: normal rate, regular rhythm, no gallop/murmur, no JVD Abdomen: normal bowel sounds, soft, non tender, no organomegaly, non distended Genitourinary: other - + weber - urine cloudy Extremities: no cyanosis Skin: no rash Neurologic/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 Findings: Patchy infiltrates noted on the right upper lobe and possibly left lung base as well. Generalized interstitial and vascular prominence demonstrated although this may be slightly improved. IMPRESSION: Persistent right upper lobe infiltrate and probable infiltrate left lung base. This could be due to pneumonia or asymmetric edema. Improved interstitial edema over one day Microbiology Date/Time Source Procedure Growth Status 01/15/19 16:37 Blood Blood Culture - Preliminary NO GROWTH AFTER 24 HOURS Resulted 01/15/19 16:20 Blood Blood Culture - Preliminary NO GROWTH AFTER 24 HOURS Resulted 01/17/19 04:00 Sputum Induced Gram Stain - Final Resulted 01/17/19 04:00 Sputum Induced Sputum Culture Pending Resulted 01/15/19 16:14 Nasal Nares - Final Complete 01/15/19 16:14 Nasal Nares - Final Complete 01/15/19 16:14 Urine,Clean Catch Urine Culture - Final Escherichia Coli Complete Laboratory Tests Test 01/17/19 01:29 01/17/19 04:00 Vancomycin Level Trough 38.6 ug/mL (5.0-12.0) H White Blood Count 9.5 K/UL (4.8-10.8) Red Blood Count 4.10 M/UL (4.20-5.40) L Hemoglobin 11.2 G/DL (12.0-16.0) L Hematocrit 34.1 % (37.0-47.0) L Mean Corpuscular Volume 83 FL (80-99) Mean Corpuscular Hemoglobin 27.3 PG (27.0-31.0) Mean Corpuscular Hemoglobin Concent 32.8 G/DL (32.0-36.0) Red Cell Distribution Width 16.7 % (11.6-14.8) H Platelet Count 218 K/UL (150-450) Mean Platelet Volume 8.3 FL (6.5-10.1) Neutrophils (%) (Auto) % (45.0-75.0) Lymphocytes (%) (Auto) % (20.0-45.0) Monocytes (%) (Auto) % (1.0-10.0) Eosinophils (%) (Auto) % (0.0-3.0) Basophils (%) (Auto) % (0.0-2.0) Differential Total Cells Counted 100 Neutrophils % (Manual) 93 % (45-75) H Lymphocytes % (Manual) 5 % (20-45) L Monocytes % (Manual) 2 % (1-10) Eosinophils % (Manual) 0 % (0-3) Basophils % (Manual) 0 % (0-2) Band Neutrophils 0 % (0-8) Platelet Estimate Adequate Platelet Morphology Normal Anisocytosis 1+ Sodium Level 133 MMOL/L (136-145) L Potassium Level 4.1 MMOL/L (3.5-5.1) Chloride Level 98 MMOL/L (98-107) Carbon Dioxide Level 27 MMOL/L (21-32) Anion Gap 8 mmol/L (5-15) Blood Urea Nitrogen 20 mg/dL (7-18) H Creatinine 0.9 MG/DL (0.55-1.30) Estimat Glomerular Filtration Rate mL/min (>60) Glucose Level 144 MG/DL (74-106) H Calcium Level 8.5 MG/DL (8.5-10.1) Magnesium Level 1.8 MG/DL (1.8-2.4) Total Bilirubin 0.4 MG/DL (0.2-1.0) Aspartate Amino Transf (AST/SGOT) 19 U/L (15-37) Alanine Aminotransferase (ALT/SGPT) 18 U/L (12-78) Alkaline Phosphatase 102 U/L (46-116) Troponin I 0.000 ng/mL (0.000-0.056) Total Protein 6.9 G/DL (6.4-8.2) Albumin 2.0 G/DL (3.4-5.0) L Globulin 4.9 g/dL Albumin/Globulin Ratio 0.4 (1.0-2.7) L Current Medications Medications (Trade) Dose Ordered Sig/Mj Route PRN Reason Start Time Stop Time Status Last Admin Dose Admin Acetaminophen (Tylenol) 650 mg Q4H PRN ORAL Mild Pain/Temp > 100.5 01/16/19 13:00 02/15/19 08:59 01/17/19 06:02 Albuterol/ Ipratropium (Albuterol/ Ipratropium) 3 ml Q4HRT HHN 01/16/19 15:00 01/21/19 02:59 01/17/19 07:04 Atorvastatin Calcium (Lipitor) 10 mg BEDTIME ORAL 01/16/19 21:00 02/15/19 20:59 Baclofen (Lioresal) 10 mg THREE TIMES A DAY ORAL 01/16/19 13:00 02/15/19 08:59 01/17/19 12:50 Dextrose/Sodium Chloride 1,000 ml @ 50 mls/hr Q20H IV 01/17/19 12:15 02/16/19 12:14 Guaifenesin/ Codeine Phosphate (Robitussin with codeine) 5 ml Q6H PRN ORAL For Cough 01/17/19 15:15 02/16/19 15:14 Metformin HCl (Glucophage) 500 mg TWICE A DAY ORAL 01/16/19 18:00 02/15/19 08:59 01/17/19 09:27 Pantoprazole (Protonix) 40 mg DAILY ORAL 01/17/19 09:00 02/15/19 08:59 01/17/19 09:26 Patient Own Medication (Patient's Own Med) 1 ea QOD SUBQ 01/18/19 09:00 02/17/19 08:59 Piperacillin Sod/ Tazobactam Sod 3.375 gm/Dextrose 100 ml @ 25 mls/hr EVERY 8 HOURS IVPB 01/16/19 14:30 01/21/19 14:29 01/17/19 12:50 Polyethylene Glycol (Miralax) 17 gm THREE TIMES A DAY ORAL 01/16/19 13:00 02/15/19 08:59 01/17/19 12:50 Tizanidine HCl (Zanaflex) 4 mg THREE TIMES A DAY ORAL 01/16/19 13:00 02/15/19 08:59 01/17/19 12:50 Vancomycin HCl (Vanco rx to dose) 1 ea DAILY PRN MISC rx protocol 01/17/19 10:00 02/15/19 12:59 Carroll Miller MD January 17, 2019 15:59
[2019-01-17 16:00] VITALS: BP 130/75
--- NOTE | 2019-01-17 17:35 | NUR ---
NURSE NOTES: Pt eating dinner,feed by caregiver,tolerating well, HOB elevated,,no aspiration presented.
--- NOTE | 2019-01-17 19:06 | NUR ---
HAND-OFF: Report given to .Julia Sanches RN.Pt resting in bed awake,stable.
--- NOTE | 2019-01-17 19:20 | NUR ---
NURSE NOTES: Report received from SHEMAR Farr. Observed pt lying on the bed. A/O x3. C/O pain at right upper abdomen, 5/10, cramping, non-radiating, and asked for prn med. Will give prn pain med. SR with copy lathe tender with HR of 95. On 2L NC, without signs of SOB. Suprapubic catheter intact and dry dressing noted. IV on R W 20G, running D5 NS at 50cc/hr. Bed in the lowest position. Side rails up x3. Will continue to monitor.
[2019-01-17 20:00] VITALS: BP 122/53
--- NOTE | 2019-01-17 22:00 | NUR ---
NURSE NOTES: Observed pt sleeping on the bed. No acute distress noted at this time. 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 Will continue to monitor.
--- NOTE | 2019-01-17 23:20 | NUR ---
NURSE NOTES: Noted pt is congestive and having hard time clearing secretion. Pt refused to have breathing treatment and suctioned. Explained benefits and risks, still refused. Will continue to monitor.
[2019-01-18] VITALS: BP 133/69
--- NOTE | 2019-01-18 | NUR ---
NURSE NOTES: Pt sleeping on the bed. Reposition done with pillow support. Refused to be cleaned up now. SR with HR of 99 noted at this time. Will follow the plan of care.
[2019-01-18] MEDS: Albuterol/Ipratropium 3ml neb HHN SCH ×6 (03:38→23:00)
[2019-01-18] MEDS: guaiFENesin w/Codeine 5ml Liq ud ORAL PRN (03:57)
[2019-01-18] MEDS: D5NS 1,000 ML IV SCH (03:58)
[2019-01-18 04:00] VITALS: BP 154/75
[2019-01-18 05:29] LABS: BASOPHILS % (AUTO) 1.4 % (0.0-2.0); EOSINOPHILS % (AUTO) 3.2 % (0.0-3.0); HEMATOCRIT 39.3 % (37.0-47.0); HEMOGLOBIN 12.7 G/DL (12.0-16.0); LYMPHOCYTES % (AUTO) 9.1 % (20.0-45.0); MEAN CORPUSCULAR VOLUME 85 FL (80-99); MONOCYTES % (AUTO) 6.9 % (1.0-10.0); NEUTROPHILS % (AUTO) 79.4 % (45.0-75.0); PLATELET COUNT 229 K/UL (150-450); RED BLOOD COUNT 4.64 M/UL (4.20-5.40); RED CELL DISTRIBUTION WIDTH 17.2 % (11.6-14.8); WHITE BLOOD COUNT 6.5 K/UL (4.8-10.8)
[2019-01-18 05:54] LABS: ALANINE AMINOTRANSFERASE 25 U/L (12-78); ALBUMIN 2.2 G/DL (3.4-5.0); ALBUMIN/GLOBULIN RATIO 0.4 (1.0-2.7); ALKALINE PHOSPHATASE 121 U/L (46-116); ANION GAP 6 mmol/L (5-15); ASPARTATE AMINO TRANSFERASE 28 U/L (15-37); BILIRUBIN,TOTAL 0.4 MG/DL (0.2-1.0); BLOOD UREA NITROGEN 16 mg/dL (7-18); CALCIUM 9.3 MG/DL (8.5-10.1); CARBON DIOXIDE 29 MMOL/L (21-32); CHLORIDE 101 MMOL/L (98-107); CREATININE 0.7 MG/DL (0.55-1.30); POTASSIUM 4.4 MMOL/L (3.5-5.1); SODIUM 136 MMOL/L (136-145)
--- NOTE | 2019-01-18 07:18 | NUR ---
HAND-OFF: Report given to SHEMAR Schwartz. No acute distress noted at this time.
--- NOTE | 2019-01-18 07:19 | NUR ---
NURSE NOTES: RECEIVED PATIENT FROM Alie HERNANDEZ RN. PATIENT IS LYING IN BED, AWAKE, ALERT AND ORIENTED. HOOKED TO WEB ADMINISTRATOR. ON 2L NC. NO SIGNS OF DISTRESS. NOTED SUPRAPUBIC CATHETER CONNECTED TO BAG, PATENT AND DRAINING URINE. NOTED SKIN ALTERATION. IV ON R WRIST G20 WITH IVF RUNNING D5 NS AT 50CC/HR. CALL LIGHT WITHIN REACH, SIDE RAILS UP. BED AT LOWEST POSITION. WILL CONTINUE TO MONITOR.
[2019-01-18 08:00] VITALS: BP 156/78
[2019-01-18] MEDS: Miralax 17gm pkt ORAL SCH ×3 (08:34→18:28)
[2019-01-18] MEDS: metFORMIN 500mg tab ORAL SCH ×2 (08:34→18:28)
[2019-01-18] MEDS ORDERED: BETASERON SUBQ SCH (09:00)
[2019-01-18 12:00] VITALS: BP 151/90
--- NOTE | 2019-01-18 12:16 | NUR ---
[facility] NURSEASSURANCE SENIOR SI: PNA. MULTIPLE SCLEROSIS. PYELONEPHRITIS VS: BP 156/78, P 108, T 98.9, RR 20, SpO2 96 on 2.0L O2 NC IS: BACLOFEN 10mg ZANAFLEX 4mg ZOSYN 100ml METFORMIN 500mg D5/NS x1L IV SDU STATUS
--- NOTE | 2019-01-18 13:05 | NUR ---
RADIOLOGY DEPT.,CHEST X-RAY DONE.-P.DYE
--- NOTE | 2019-01-18 13:22 | Pulmonology Progress Note ---
Assessment/Plan Assessment/Plan 1. Pneumonia 2. UTI with chronic suprapubic catheter. 3. Multiple sclerosis. 4. Sinus tachycardia 5. Diabetes. 6. Hyponatremia. 7. Neurogenic bladder. 8. Hypertension. 9. Hyperlipidemia. no episode of low BP, high HR soft diet c/s normal althea CXR tomorrow dc 2-3 d Subjective Constitutional: Reports: no symptoms Respiratory: Reports: productive cough - less Allergies: Coded Allergies: SULFA (SULFONAMIDE ANTIBIOTICS) (Verified Allergy, Unknown, 11/22/17) Objective Last 24 Hour Vital Signs Date Time Temp Pulse Resp B/P (MAP) Pulse Ox O2 Delivery O2 Flow Rate FiO2 01/18/19 12:00 97.9 98 20 151/90 (110) 95 01/18/19 10:40 Nasal Cannula 2.0 28 01/18/19 10:40 Nasal Cannula 2.0 28 01/18/19 08:00 108 01/18/19 08:00 Nasal Cannula 2.0 01/18/19 08:00 98.9 104 20 156/78 (104) 96 01/18/19 07:14 Nasal Cannula 2.0 28 01/18/19 07:13 Nasal Cannula 2.0 28 01/18/19 07:13 96 Nasal Cannula 2.0 28 01/18/19 07:13 Nasal Cannula 2.0 28 01/18/19 04:00 Nasal Cannula 2.0 01/18/19 04:00 97.8 105 20 154/75 (101) 96 01/18/19 04:00 102 01/18/19 03:38 103 20 96 Nasal Cannula 2.0 28 01/18/19 03:38 103 20 95 Nasal Cannula 2.0 28 01/18/19 03:38 28 01/18/19 00:00 80 01/18/19 00:00 97.8 100 20 133/69 (90) 100 01/18/19 00:00 Nasal Cannula 2.0 01/17/19 23:38 Nasal Cannula 2.0 28 01/17/19 23:38 Nasal Cannula 2.0 28 01/17/19 21:00 Nasal Cannula 2.0 01/17/19 20:00 97.8 101 24 122/53 (76) 96 01/17/19 20:00 100 01/17/19 19:56 96 Nasal Cannula 2.0 28 01/17/19 19:56 Nasal Cannula 2.0 28 01/17/19 19:56 Nasal Cannula 2.0 28 01/17/19 19:56 Nasal Cannula 2.0 28 01/17/19 16:00 98.0 99 23 130/75 (93) 97 01/17/19 16:00 105 01/17/19 15:13 Nasal Cannula 2.0 28 01/17/19 15:13 Nasal Cannula 2.0 28 01/17/19 13:49 98.8 Intake and Output 01/17/19 01/18/19 19:00 07:00 Intake Total 240 ml 466 ml Output Total 1600 ml 1400 ml Balance -1360 ml -934 ml Intake Oral 240 ml 240 ml IV Total 226 ml Output Urine Total 1600 ml 1400 ml Objective obese General Appearance: no acute distress Respiratory/Chest: lungs clear, decreased breath sounds, other - weak cough Cardiovascular: normal rate Microbiology Date/Time Source Procedure Growth Status 01/15/19 16:37 Blood Blood Culture - Preliminary NO GROWTH AFTER 48 HOURS Resulted 01/15/19 16:20 Blood Blood Culture - Preliminary NO GROWTH AFTER 48 HOURS Resulted 01/17/19 04:00 Sputum Induced Gram Stain - Final Resulted 01/17/19 04:00 Sputum Induced Sputum Culture - Preliminary NORMAL UPPER RESPIRATORY ALTHEA AT 24 ... Resulted 01/15/19 16:14 Nasal Nares - Final Complete 01/15/19 16:14 Nasal Nares - Final Complete 01/15/19 16:14 Urine,Clean Catch Urine Culture - Final Escherichia Coli Complete Laboratory Tests 01/17/19 17:59: Random Vancomycin Level 26.7 01/18/19 03:20: Random Vancomycin Level 23.7, White Blood Count 6.5, Red Blood Count 4.64, Hemoglobin 12.7, Hematocrit 39.3, Mean Corpuscular Volume 85, Mean Corpuscular Hemoglobin 27.3, Mean Corpuscular Hemoglobin Concent 32.2, Red Cell Distribution Width 17.2H, Platelet Count 229, Mean Platelet Volume 8.3, Neutrophils (%) (Auto) 79.4H, Lymphocytes (%) (Auto) 9.1L, Monocytes (%) (Auto) 6.9, Eosinophils (%) (Auto) 3.2H, Basophils (%) (Auto) 1.4, Sodium Level 136, Potassium Level 4.4, Chloride Level 101, Carbon Dioxide Level 29, Anion Gap 6, Blood Urea Nitrogen 16, Creatinine 0.7, Estimat Glomerular Filtration Rate , Glucose Level 103, Calcium Level 9.3, Total Bilirubin 0.4, Aspartate Amino Transf (AST/SGOT) 28, Alanine Aminotransferase (ALT/SGPT) 25, Alkaline Phosphatase 121H, Total Protein 8.0, Albumin 2.2L, Globulin 5.8, Albumin/ Globulin Ratio 0.4L Current Medications Medications (Trade) Dose Ordered Sig/Mj Route PRN Reason Start Time Stop Time Status Last Admin Dose Admin Acetaminophen (Tylenol) 650 mg Q4H PRN ORAL Mild Pain/Temp > 100.5 01/16/19 13:00 02/15/19 08:59 01/18/19 06:03 Albuterol/ Ipratropium (Albuterol/ Ipratropium) 3 ml Q4HRT HHN 01/16/19 15:00 01/21/19 02:59 01/18/19 03:38 Atorvastatin Calcium (Lipitor) 10 mg BEDTIME ORAL 01/16/19 21:00 02/15/19 20:59 01/17/19 21:57 Baclofen (Lioresal) 10 mg THREE TIMES A DAY ORAL 01/16/19 13:00 02/15/19 08:59 01/18/19 08:35 Dextrose/Sodium Chloride 1,000 ml @ 50 mls/hr Q20H IV 01/17/19 12:15 02/16/19 12:14 01/18/19 03:58 Guaifenesin/ Codeine Phosphate (Robitussin with codeine) 5 ml Q6H PRN ORAL For Cough 01/17/19 15:15 02/16/19 15:14 01/18/19 03:57 Metformin HCl (Glucophage) 500 mg TWICE A DAY ORAL 01/16/19 18:00 02/15/19 08:59 01/18/19 08:34 Pantoprazole (Protonix) 40 mg DAILY ORAL 01/17/19 09:00 02/15/19 08:59 01/18/19 08:35 Patient Own Medication (Patient's Own Med) 1 ea QOD SUBQ 01/18/19 09:00 02/17/19 08:59 01/18/19 08:51 Piperacillin Sod/ Tazobactam Sod 3.375 gm/Dextrose 100 ml @ 25 mls/hr EVERY 8 HOURS IVPB 01/16/19 14:30 01/21/19 14:29 01/18/19 06:03 Polyethylene Glycol (Miralax) 17 gm THREE TIMES A DAY ORAL 01/16/19 13:00 02/15/19 08:59 01/18/19 08:34 Tizanidine HCl (Zanaflex) 4 mg THREE TIMES A DAY ORAL 01/16/19 13:00 02/15/19 08:59 01/18/19 08:35 Vancomycin HCl (Vanco rx to dose) 1 ea DAILY PRN MISC rx protocol 01/17/19 10:00 02/15/19 12:59 Robb Quiroz MD January 18, 2019 13:22
--- NOTE | 2019-01-18 13:54 | Diagnostic Imaging Report ---
Indication: Dyspnea Comparison: 01/16/2019 A single view chest radiograph was obtained. Findings: Developing pulmonary vascular congestion demonstrated. The heart is enlarged. Vascularity is more prominent. IMPRESSION: Development of CHF
--- NOTE | 2019-01-18 14:53 | NUR ---
*-* INSURANCE *-* ALL CLINICALS AND REVIEW HAVE BEEN FAXED TO: [facility] ..SHE WILL HANDLE THIS ADMISSION.. P- [phone] F- [phone].....REVIEW/CLINICAL
[2019-01-18 16:00] VITALS: BP 149/81
--- NOTE | 2019-01-18 16:35 | Surgery Progress Note ---
Surgery Progress Note Subjective Additional Comments no acute events. exam stable. comfortable. family at bedside. on air roxanna mattress Objective Last 24 Hour Vital Signs Date Time Temp Pulse Resp B/P (MAP) Pulse Ox O2 Delivery O2 Flow Rate FiO2 01/18/19 15:13 Nasal Cannula 2.0 28 01/18/19 15:13 Nasal Cannula 2.0 28 01/18/19 12:00 97.9 98 20 151/90 (110) 95 01/18/19 11:46 100 01/18/19 10:40 Nasal Cannula 2.0 28 01/18/19 10:40 Nasal Cannula 2.0 28 01/18/19 08:00 108 01/18/19 08:00 Nasal Cannula 2.0 01/18/19 08:00 98.9 104 20 156/78 (104) 96 01/18/19 07:14 Nasal Cannula 2.0 28 01/18/19 07:13 Nasal Cannula 2.0 28 01/18/19 07:13 96 Nasal Cannula 2.0 01/18/19 07:13 Nasal Cannula 2.0 01/18/19 04:00 Nasal Cannula 2.0 01/18/19 04:00 97.8 105 20 154/75 (101) 96 01/18/19 04:00 102 01/18/19 03:38 103 20 96 Nasal Cannula 2.0 01/18/19 03:38 103 20 95 Nasal Cannula 2.0 28 01/18/19 03:38 28 01/18/19 00:00 80 01/18/19 00:00 97.8 100 20 133/69 (90) 100 01/18/19 00:00 Nasal Cannula 2.0 01/17/19 23:38 Nasal Cannula 2.0 28 01/17/19 23:38 Nasal Cannula 2.0 28 01/17/19 21:00 Nasal Cannula 2.0 01/17/19 20:00 97.8 101 24 122/53 (76) 96 01/17/19 20:00 100 01/17/19 19:56 96 Nasal Cannula 2.0 28 01/17/19 19:56 Nasal Cannula 2.0 28 01/17/19 19:56 Nasal Cannula 2.0 28 01/17/19 19:56 Nasal Cannula 2.0 28 I&O Intake and Output 01/17/19 01/18/19 19:00 07:00 Intake Total 240 ml 466 ml Output Total 1600 ml 1400 ml Balance -1360 ml -934 ml Intake Oral 240 ml 240 ml IV Total 226 ml Output Urine Total 1600 ml 1400 ml Dressing: saturated Wound: other Drains: other Cardiovascular: RSR Respiratory: decreased breath sounds Abdomen: soft, present bowel sounds, non-distended Extremities: no cyanosis Laboratory Tests Test 01/17/19 17:59 01/18/19 03:20 Random Vancomycin Level 26.7 ug/mL 23.7 ug/mL White Blood Count 6.5 K/UL (4.8-10.8) Red Blood Count 4.64 M/UL (4.20-5.40) Hemoglobin 12.7 G/DL (12.0-16.0) Hematocrit 39.3 % (37.0-47.0) Mean Corpuscular Volume 85 FL (80-99) Mean Corpuscular Hemoglobin 27.3 PG (27.0-31.0) Mean Corpuscular Hemoglobin Concent 32.2 G/DL (32.0-36.0) Red Cell Distribution Width 17.2 % (11.6-14.8) H Platelet Count 229 K/UL (150-450) Mean Platelet Volume 8.3 FL (6.5-10.1) Neutrophils (%) (Auto) 79.4 % (45.0-75.0) H Lymphocytes (%) (Auto) 9.1 % (20.0-45.0) L Monocytes (%) (Auto) 6.9 % (1.0-10.0) Eosinophils (%) (Auto) 3.2 % (0.0-3.0) H Basophils (%) (Auto) 1.4 % (0.0-2.0) Sodium Level 136 MMOL/L (136-145) Potassium Level 4.4 MMOL/L (3.5-5.1) Chloride Level 101 MMOL/L (98-107) Carbon Dioxide Level 29 MMOL/L (21-32) Anion Gap 6 mmol/L (5-15) Blood Urea Nitrogen 16 mg/dL (7-18) Creatinine 0.7 MG/DL (0.55-1.30) Estimat Glomerular Filtration Rate mL/min (>60) Glucose Level 103 MG/DL (74-106) Calcium Level 9.3 MG/DL (8.5-10.1) Total Bilirubin 0.4 MG/DL (0.2-1.0) Aspartate Amino Transf (AST/SGOT) 28 U/L (15-37) Alanine Aminotransferase (ALT/SGPT) 25 U/L (12-78) Alkaline Phosphatase 121 U/L (46-116) H Total Protein 8.0 G/DL (6.4-8.2) Albumin 2.2 G/DL (3.4-5.0) L Globulin 5.8 g/dL Albumin/Globulin Ratio 0.4 (1.0-2.7) L Plan Problems: (1) Decubital ulcer Assessment & Plan: Pt presented on admission with multiple ,Pressure injuries, MASD bilateral breasts folds, abd folds, bilateral groin and medial aspects of both thighs. Erythema with denuded skin noted to affected areas. Moisture intertrigo noted to R groin. Scattered Nevi noted to back and medial aspects of both upper thighs.Pt also noted to have numerous skin tags medial upper thighs. Resolving pressure injury noted to sacral area.Base of wound with pink epithelial with surrounding hyperpigmentation .Small wound noted at sacrococcygeal area(L)1.0cm x (W)0.9cm. Base of wound is moist and viable. Hyperpigmentation from previous pressure injury noted in crevices of skin R ischium. Caregiver at bedside and stated pt has Hx of Recurrent pressure injuries to sacrum and R ischium.Hyperpigmentation noted to L ischium. L heel boggy with non-blanchable erythema non-tender when palpated. Non-blanchable erythema with fluctuance at base medial aspect of R heel. (L) 1.5cm x (W)2.3cm Edemae and Foot drop noted to both feet. Eschar with surrounding erythema noted to R 1st metatarsal head. Small amt purulent exudate noted when wound minimally palpated. Small partial thickness ulcers without exudate noted to dorsum of R 2nd,3rd,4th and 5th metatarsals.Wounds are erythematous at base .Periwound metatarsals are pale and shiny. Tx.Plan: Wash skin folds of both breasts and abd folds with soap and water. Apply Light dusting of Antifungal powder every shift. Apply Triad Paste to buttocks both ischial areas, bilat groin and medial / posterior aspects of both upper thighs with each incontinence care. Apply Triad Paste to sacrum.Cover with Optifoam drsg. Change every 3 days and prn. Swab R 1st metatarsal head with Betadine. Cover with Optifoam drsg Daily and prn. Apply Cavilon to both heels .Cover each heel with Optifoam drsg.Change every 7 days and prn. Apply Betadine to dorsals of 2nd,3rd,4th and 5th metatarsals. Bariatric bed with Air fluidized mattress. Reposition at least every 2hours or as tolerated. Off-load heels with pillow. (2) Multiple sclerosis (3) Obstipation Assessment & Plan: abdomen distended KUB noted and okay exam without tenderness decreased bowel sounds cont with diet will follow with exam (4) Urinary tract infection (5) Hypoxemia (6) Tachycardia (7) Pneumonia (8) Obesities, morbid Assessment & Plan: DAILY ESTIMATED NEEDS: Needs based on Pulmonary, obese 78kg adj 20-25 kcals/kg 4905-4722 total kcals 1-1.5 g protein/kg 78-117 g total protein Fluid per MD, on lasix NUTRITION DIAGNOSIS: 1) Decreased sodium and fat intake needs R/T cardiac hx, PNA as evidenced by on diuretics, HTN, BMI >40, pt is @191% [place] Body Weight. 2) Self feeding difficulty r/t MS as evidenced by pt w/ BL UE contractures, requires 1:1 feedings. PO DIET RECOMMENDATIONS: Cardiac, CCHO MED (texture per LOG STACKER OPERATOR) ---- ADDITIONAL RECOMMENDATIONS: 1) LOG STACKER OPERATOR eval for appropriate texture (h/o MS w/ contractures, need for 1:1) 2) Wound Care: photos noted, pending MD eval 3) A1C for eval (need for diet change to ccho low w/ 2x prot) 4) Check lytes daily on lasix, replete as needed (Mg 1.6) (9) Encounter for generalized patient complaints John Toledo January 18, 2019 16:35
--- NOTE | 2019-01-18 19:14 | Cardiology Progress Note ---
Assessment/Plan Assessment/Plan 1. Hypotension, probably multifactorial, possibly volume related versus medication related 2. Pneumonia. 3. Multiple sclerosis. 4. Diabetes mellitus. 5. Chronic suprapubic catheter. 6. Decubitus ulcers 7. MS (multiple sclerosis) blood cx neg sofar still urine cx postive bp improved stop ivf will restart acie low dose will review echo tele personally rev. sinus , borderline sinus tachy all torp neg mentally has improved sib more awake and responsive labs noted over all better . Subjective Cardiovascular: Denies: chest pain Respiratory: Denies: shortness of breath Gastrointestinal/Abdominal: Denies: abdominal pain Genitourinary: Denies: burning Objective Last 24 Hour Vital Signs Date Time Temp Pulse Resp B/P (MAP) Pulse Ox O2 Delivery O2 Flow Rate FiO2 01/18/19 16:00 Nasal Cannula 2.0 01/18/19 16:00 98.2 107 20 149/81 (103) 96 01/18/19 16:00 102 01/18/19 15:13 Nasal Cannula 2.0 28 01/18/19 15:13 Nasal Cannula 2.0 28 01/18/19 12:00 Nasal Cannula 2.0 01/18/19 12:00 97.9 98 20 151/90 (110) 95 01/18/19 11:46 100 01/18/19 10:40 Nasal Cannula 2.0 01/18/19 10:40 Nasal Cannula 2.0 28 01/18/19 08:00 108 01/18/19 08:00 Nasal Cannula 2.0 01/18/19 08:00 98.9 104 20 156/78 (104) 96 01/18/19 07:14 Nasal Cannula 2.0 28 01/18/19 07:13 Nasal Cannula 2.0 28 01/18/19 07:13 96 Nasal Cannula 2.0 28 01/18/19 07:13 Nasal Cannula 2.0 28 01/18/19 04:00 Nasal Cannula 2.0 01/18/19 04:00 97.8 105 20 154/75 (101) 96 01/18/19 04:00 102 01/18/19 03:38 103 20 96 Nasal Cannula 2.0 28 01/18/19 03:38 103 20 95 Nasal Cannula 2.0 28 01/18/19 03:38 28 01/18/19 00:00 80 01/18/19 00:00 97.8 100 20 133/69 (90) 100 01/18/19 00:00 Nasal Cannula 2.0 01/17/19 23:38 Nasal Cannula 2.0 28 01/17/19 23:38 Nasal Cannula 2.0 28 01/17/19 21:00 Nasal Cannula 2.0 01/17/19 20:00 97.8 101 24 122/53 (76) 96 01/17/19 20:00 100 01/17/19 19:56 96 Nasal Cannula 2.0 28 01/17/19 19:56 Nasal Cannula 2.0 28 01/17/19 19:56 Nasal Cannula 2.0 28 01/17/19 19:56 Nasal Cannula 2.0 28 General Appearance: no apparent distress, alert, obese Neck: supple Cardiovascular: normal rate, regular rhythm Respiratory/Chest: lungs clear - ant Abdomen: normal bowel sounds, non tender, soft Extremities: moderate edema Intake and Output 01/17/19 01/18/19 19:00 07:00 Intake Total 240 ml 466 ml Output Total 1600 ml 1400 ml Balance -1360 ml -934 ml Intake Oral 240 ml 240 ml IV Total 226 ml Output Urine Total 1600 ml 1400 ml Laboratory Tests Test 01/18/19 03:20 White Blood Count 6.5 K/UL (4.8-10.8) Red Blood Count 4.64 M/UL (4.20-5.40) Hemoglobin 12.7 G/DL (12.0-16.0) Hematocrit 39.3 % (37.0-47.0) Mean Corpuscular Volume 85 FL (80-99) Mean Corpuscular Hemoglobin 27.3 PG (27.0-31.0) Mean Corpuscular Hemoglobin Concent 32.2 G/DL (32.0-36.0) Red Cell Distribution Width 17.2 % (11.6-14.8) H Platelet Count 229 K/UL (150-450) Mean Platelet Volume 8.3 FL (6.5-10.1) Neutrophils (%) (Auto) 79.4 % (45.0-75.0) H Lymphocytes (%) (Auto) 9.1 % (20.0-45.0) L Monocytes (%) (Auto) 6.9 % (1.0-10.0) Eosinophils (%) (Auto) 3.2 % (0.0-3.0) H Basophils (%) (Auto) 1.4 % (0.0-2.0) Sodium Level 136 MMOL/L (136-145) Potassium Level 4.4 MMOL/L (3.5-5.1) Chloride Level 101 MMOL/L (98-107) Carbon Dioxide Level 29 MMOL/L (21-32) Anion Gap 6 mmol/L (5-15) Blood Urea Nitrogen 16 mg/dL (7-18) Creatinine 0.7 MG/DL (0.55-1.30) Estimat Glomerular Filtration Rate mL/min (>60) Glucose Level 103 MG/DL (74-106) Calcium Level 9.3 MG/DL (8.5-10.1) Total Bilirubin 0.4 MG/DL (0.2-1.0) Aspartate Amino Transf (AST/SGOT) 28 U/L (15-37) Alanine Aminotransferase (ALT/SGPT) 25 U/L (12-78) Alkaline Phosphatase 121 U/L (46-116) H Total Protein 8.0 G/DL (6.4-8.2) Albumin 2.2 G/DL (3.4-5.0) L Globulin 5.8 g/dL Albumin/Globulin Ratio 0.4 (1.0-2.7) L Random Vancomycin Level 23.7 ug/mL Microbiology Date/Time Source Procedure Growth Status 01/17/19 04:00 Sputum Induced Gram Stain - Final Resulted 01/17/19 04:00 Sputum Induced Sputum Culture - Preliminary NORMAL UPPER RESPIRATORY CLARA AT 24 ... Resulted Krishna Perry MD January 18, 2019 19:14
--- NOTE | 2019-01-18 19:33 | NUR ---
HAND-OFF: Report given to Hans Vieyra RN.
--- NOTE | 2019-01-18 19:34 | NUR ---
NURSE NOTES: BEDSIDE REPORT RECEIVED FROM SHEMAR MORGAN. PT IS X4, ABLE TO MAKE NEEDS KNOWN. FITNESS CONSULTANT SHOWING NSR. 2L NC SATING WELL. PT IS CLEAN, DRY, DRESSINGS INTACT. SUPRAPUBIC CATHETER NOTED, DRAINING. PT IS ACCUCHEK ACHS, ORAL COVERAGE. BLE EDEMA, REDNESS BETWEEN SKIN FOLDS NOTED. RW 20 G; ASYMPTOMATIC. LABS OK PER RN. RANDOM VANCO AT 0600. CXR SHOWS CHF, MD AWARE. BED IS LOCKED IN LOWEST POSITION, SR X3, CALL BLAIR W/ IN REACH, BED ALARM ON. WILL CONTINUE TO MONITOR AND FOLLOW PLAN OF CARE.
[2019-01-18 20:00] VITALS: BP 149/95
[2019-01-18] MEDS ORDERED: Ramipril 2.5mg cap ORAL SCH (20:00)
[2019-01-19] VITALS (7 sets, daily range): BP systolic 121–159; BP diastolic 66–99
[2019-01-19] MEDS: guaiFENesin w/Codeine 5ml Liq ud ORAL PRN ×2 (01:24→13:51)
--- NOTE | 2019-01-19 03:00 | NUR ---
NURSE NOTES: PT REFUSED X2 BREATHING TREATMENTS, ALSO COMPLAINING OF COUGH. PT HAS PRN COUGH MED, SEE EMAR FOR ADMIN. WILL CONTINUE TO MONITOR AND FOLLOW W/ PLAN OF CARE.
[2019-01-19] MEDS: Albuterol/Ipratropium 3ml neb HHN SCH ×6 (03:02→23:39)
[2019-01-19 05:21] LABS: BASOPHILS % (AUTO) 0.7 % (0.0-2.0); EOSINOPHILS % (AUTO) 3.4 % (0.0-3.0); HEMATOCRIT 34.7 % (37.0-47.0); HEMOGLOBIN 11.1 G/DL (12.0-16.0); LYMPHOCYTES % (AUTO) 16.3 % (20.0-45.0); MEAN CORPUSCULAR VOLUME 85 FL (80-99); MONOCYTES % (AUTO) 6.4 % (1.0-10.0); NEUTROPHILS % (AUTO) 73.1 % (45.0-75.0); PLATELET COUNT 267 K/UL (150-450); RED BLOOD COUNT 4.08 M/UL (4.20-5.40); WHITE BLOOD COUNT 5.3 K/UL (4.8-10.8)
[2019-01-19 05:45] LABS: ALANINE AMINOTRANSFERASE 26 U/L (12-78); ALBUMIN 2.1 G/DL (3.4-5.0); ALBUMIN/GLOBULIN RATIO 0.4 (1.0-2.7); ALKALINE PHOSPHATASE 118 U/L (46-116); ANION GAP 5 mmol/L (5-15); ASPARTATE AMINO TRANSFERASE 28 U/L (15-37); BILIRUBIN,TOTAL 0.3 MG/DL (0.2-1.0); BLOOD UREA NITROGEN 11 mg/dL (7-18); CARBON DIOXIDE 31 MMOL/L (21-32); CHLORIDE 103 MMOL/L (98-107); CREATININE 0.6 MG/DL (0.55-1.30); POTASSIUM 4.5 MMOL/L (3.5-5.1); SODIUM 139 MMOL/L (136-145)
[2019-01-19] MEDS ORDERED: Vancomycin 750mg/NS 275ml IVPB SCH ×4 (07:00→09:00)
--- NOTE | 2019-01-19 07:15 | NUR ---
HAND-OFF: Report given to SHEMAR AGUIELRA.
[2019-01-19] MEDS: Miralax 17gm pkt ORAL SCH ×3 (08:24→17:28)
[2019-01-19] MEDS: metFORMIN 500mg tab ORAL SCH ×2 (08:25→17:28)
--- NOTE | 2019-01-19 09:47 | NUR ---
*-* INSURANCE *-* UPDATED CLINICALS AND REVIEW HAVE BEEN FAXED TO: ABISAI COLLAZO S/W [facility] ..SHE WILL HANDLE THIS ADMISSION.. P- [phone] F- [phone].....REVIEW/CLINICAL Addendum: 01/19/19 at 0950 by YING MURILLO REF# [id number]
--- NOTE | 2019-01-19 10:52 | NUR ---
NURSE NOTES: Informed Dr. Quiroz that patient has been Sinus rhythm with HR of 92, and per Dr. Perry's recommendations okay to move to telemetry. Noted. Dr. Quiroz acknowledged and ordered to transfer patient to telemetry unit. Order entered, noted, and carried out. Will continue to monitor patient.
--- NOTE | 2019-01-19 14:07 | NUR ---
NURSE NOTES: Contacted and informed Dr. Quiroz that patient has coughed up x 1 red tinged sputum. Per patient they have coughed up x 1 red tinged sputum as well. Pt has no c/o SOB, denies pain, SpO2 97% on 2L NC. Dr. Quiroz acknowledged and ordered chest x-ray. Order entered, noted, and carried out. Will continue to monitor patient.
--- NOTE | 2019-01-19 14:12 | Infectious Diseases Prog Note ---
Assessment/Plan Assessment/Plan ASSESSMENT AND PLAN: 1. e.coli uti/pyelonephritis, pneumonia vs chf, fevers, sputum culture - normal althea - change to rocephin - day # 4 abx, and discontinue vancomycin and zosyn - monitor labs and chest x-ray - fevers better - clinically better, more alert 2. Multiple sclerosis. 3. Neurogenic bladder. 4. Suprapubic catheter that is chronic. 5. Morbid obesity. 6. Quadriplegia. 7. Hypertension. 8. Hyperlipidemia. 9. Diabetes type 2. 10. Colonic polyps. 11. Anemia. 12. History of colonoscopy. 13. Social history is negative for smoking, alcohol, or drug abuse. 14. Family history is noncontributory. 15. Allergies to sulfa drugs. 16. MAR was noted. 17. Case was discussed with RN. 18. ROBBY care. 19. Wound Skin care protocol. 20. Continue treatment per Dr. Quiroz and consultants. Subjective Constitutional: Reports: fatigue; Denies: fever HEENT: Denies: congestion Respiratory: Denies: shortness of breath Cardiovascular: Denies: chest pain Gastrointestinal/Abdominal: Denies: nausea, vomiting, diarrhea Genitourinary: Reports: other - + weber Neurologic: Denies: headache Psychiatric: Denies: depression Skin: Denies: rash Hematologic: Denies: bleeding Musculoskeletal: Denies: pain Allergies: Coded Allergies: SULFA (SULFONAMIDE ANTIBIOTICS) (Verified Allergy, Unknown, 11/22/17) Objective Vital Signs Last 24 Hour Vital Signs Date Time Temp Pulse Resp B/P (MAP) Pulse Ox O2 Delivery O2 Flow Rate FiO2 01/19/19 12:00 89 01/19/19 12:00 Nasal Cannula 2.0 01/19/19 12:00 97.9 84 20 121/78 (92) 97 01/19/19 10:59 96 96 Nasal Cannula 2.0 28 01/19/19 10:59 96 96 Nasal Cannula 2.0 28 01/19/19 08:00 102 01/19/19 08:00 Nasal Cannula 2.0 01/19/19 08:00 98.1 96 20 152/79 (103) 92 01/19/19 07:18 97.7 01/19/19 06:40 102 Nasal Cannula 2.0 28 01/19/19 06:40 102 16 95 Nasal Cannula 2.0 28 01/19/19 06:38 95 Nasal Cannula 2.0 28 01/19/19 06:38 Nasal Cannula 2.0 28 01/19/19 04:00 Nasal Cannula 2.0 01/19/19 04:00 106 01/19/19 04:00 97.7 104 20 153/79 (103) 92 01/19/19 03:19 104 20 97 Nasal Cannula 2.0 28 01/19/19 03:02 28 01/19/19 03:02 102 20 95 Nasal Cannula 2.0 28 01/19/19 00:00 Nasal Cannula 2.0 01/19/19 00:00 97.9 105 20 159/99 (119) 93 01/19/19 00:00 100 01/18/19 22:56 Nasal Cannula 2.0 01/18/19 22:56 Nasal Cannula 2.0 28 01/18/19 20:58 149/95 01/18/19 20:00 98.2 116 20 149/95 (113) 92 01/18/19 20:00 Nasal Cannula 2.0 01/18/19 20:00 102 01/18/19 19:34 Nasal Cannula 2.0 28 01/18/19 19:34 95 Nasal Cannula 2.0 28 01/18/19 19:32 Nasal Cannula 2.0 28 01/18/19 19:32 Nasal Cannula 2.0 28 01/18/19 16:00 Nasal Cannula 2.0 01/18/19 16:00 98.2 107 20 149/81 (103) 96 01/18/19 16:00 102 01/18/19 15:13 Nasal Cannula 2.0 28 01/18/19 15:13 Nasal Cannula 2.0 28 Height (Feet): 5 Height (Inches): 7.00 Weight (Pounds): 219 General Appearance: no acute distress HEENT: normocephalic, atraumatic, anicteric Respiratory/Chest: lungs clear, normal breath sounds, no respiratory distress Cardiovascular: normal rate, regular rhythm, no gallop/murmur, no JVD Abdomen: normal bowel sounds, soft, non tender, no organomegaly, non distended Genitourinary: other - + weber - urine clear Extremities: no cyanosis Skin: no rash Neurologic/Psychiatric: technology professional II-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 Findings: Patchy infiltrates noted on the right upper lobe and possibly left lung base as well. Generalized interstitial and vascular prominence demonstrated although this may be slightly improved. IMPRESSION: Persistent right upper lobe infiltrate and probable infiltrate left lung base. This could be due to pneumonia or asymmetric edema. Improved interstitial edema over one day Chest x-ray - 01/18/19 - Comparison: 01/16/2019 A single view chest radiograph was obtained. Findings: Developing pulmonary vascular congestion demonstrated. The heart is enlarged. Vascularity is more prominent. IMPRESSION: Development of CHF Microbiology Date/Time Source Procedure Growth Status 01/15/19 16:37 Blood Blood Culture - Preliminary NO GROWTH AFTER 72 HOURS Resulted 01/17/19 04:00 Sputum Induced Gram Stain - Final Complete 01/17/19 04:00 Sputum Induced Sputum Culture - Final NORMAL UPPER RESPIRATORY ALTHEA PRESENT Complete 01/15/19 16:14 Urine,Clean Catch Urine Culture - Final Escherichia Coli Complete Microbiology Date/Time Source Procedure Growth Status 01/17/19 04:00 Sputum Induced Gram Stain - Final Complete 01/17/19 04:00 Sputum Induced Sputum Culture - Final NORMAL UPPER RESPIRATORY ALTHEA PRESENT Complete Laboratory Tests Test 01/19/19 03:15 White Blood Count 5.3 K/UL (4.8-10.8) Red Blood Count 4.08 M/UL (4.20-5.40) L Hemoglobin 11.1 G/DL (12.0-16.0) L Hematocrit 34.7 % (37.0-47.0) L Mean Corpuscular Volume 85 FL (80-99) Mean Corpuscular Hemoglobin 27.2 PG (27.0-31.0) Mean Corpuscular Hemoglobin Concent 32.0 G/DL (32.0-36.0) Red Cell Distribution Width 17.0 % (11.6-14.8) H Platelet Count 267 K/UL (150-450) Mean Platelet Volume 8.0 FL (6.5-10.1) Neutrophils (%) (Auto) 73.1 % (45.0-75.0) Lymphocytes (%) (Auto) 16.3 % (20.0-45.0) L Monocytes (%) (Auto) 6.4 % (1.0-10.0) Eosinophils (%) (Auto) 3.4 % (0.0-3.0) H Basophils (%) (Auto) 0.7 % (0.0-2.0) Sodium Level 139 MMOL/L (136-145) Potassium Level 4.5 MMOL/L (3.5-5.1) Chloride Level 103 MMOL/L (98-107) Carbon Dioxide Level 31 MMOL/L (21-32) Anion Gap 5 mmol/L (5-15) Blood Urea Nitrogen 11 mg/dL (7-18) Creatinine 0.6 MG/DL (0.55-1.30) Estimat Glomerular Filtration Rate mL/min (>60) Glucose Level 96 MG/DL (74-106) Calcium Level 9.0 MG/DL (8.5-10.1) Total Bilirubin 0.3 MG/DL (0.2-1.0) Aspartate Amino Transf (AST/SGOT) 28 U/L (15-37) Alanine Aminotransferase (ALT/SGPT) 26 U/L (12-78) Alkaline Phosphatase 118 U/L (46-116) H Total Protein 7.6 G/DL (6.4-8.2) Albumin 2.1 G/DL (3.4-5.0) L Globulin 5.5 g/dL Albumin/Globulin Ratio 0.4 (1.0-2.7) L Random Vancomycin Level 15.1 ug/mL Current Medications Medications (Trade) Dose Ordered Sig/Mj Route PRN Reason Start Time Stop Time Status Last Admin Dose Admin Acetaminophen (Tylenol) 650 mg Q4H PRN ORAL Mild Pain/Temp > 100.5 01/16/19 13:00 02/15/19 08:59 01/19/19 06:48 Albuterol/ Ipratropium (Albuterol/ Ipratropium) 3 ml Q4HRT HHN 01/16/19 15:00 01/21/19 02:59 01/19/19 03:02 Atorvastatin Calcium (Lipitor) 10 mg BEDTIME ORAL 01/16/19 21:00 02/15/19 20:59 01/18/19 20:58 Baclofen (Lioresal) 10 mg THREE TIMES A DAY ORAL 01/16/19 13:00 02/15/19 08:59 01/19/19 13:34 Guaifenesin/ Codeine Phosphate (Robitussin with codeine) 5 ml Q6H PRN ORAL For Cough 01/17/19 15:15 02/16/19 15:14 01/19/19 13:51 Metformin HCl (Glucophage) 500 mg TWICE A DAY ORAL 01/16/19 18:00 02/15/19 08:59 01/19/19 08:25 Pantoprazole (Protonix) 40 mg DAILY ORAL 01/17/19 09:00 02/15/19 08:59 01/19/19 08:25 Patient Own Medication (Patient's Own Med) 1 ea QOD SUBQ 01/18/19 09:00 02/17/19 08:59 01/18/19 08:51 Piperacillin Sod/ Tazobactam Sod 3.375 gm/Dextrose 100 ml @ 25 mls/hr EVERY 8 HOURS IVPB 01/19/19 14:00 01/24/19 13:59 Polyethylene Glycol (Miralax) 17 gm THREE TIMES A DAY ORAL 01/16/19 13:00 02/15/19 08:59 01/18/19 18:28 Ramipril (Altace) 2.5 mg Q24H ORAL 01/18/19 20:00 02/17/19 19:59 01/18/19 20:58 Tizanidine HCl (Zanaflex) 4 mg THREE TIMES A DAY ORAL 01/16/19 13:00 02/15/19 08:59 01/19/19 13:35 Carroll Miller MD January 19, 2019 14:12
--- NOTE | 2019-01-19 14:26 | NUR ---
RD ASSESSMENT & RECOMMENDATIONS SEE CARE ACTIVITY FOR COMPLETE ASSESSMENT DAILY ESTIMATED NEEDS: Needs based on Pulmonary, obese, wounds 78kg adj 20-25 kcals/kg 7131-1843 total kcals 1.25-1.5 g protein/kg 98-117 g total protein Fluid per MD NUTRITION DIAGNOSIS: 1) Decreased sodium and fat intake needs R/T cardiac hx, PNA as evidenced by on diuretics, HTN, BMI >40, pt is @191% [place] Body Weight. 2) Self feeding difficulty r/t MS as evidenced by pt w/ BL UE contractures, requires 1:1 feedings. CURRENT DIET: CCHO MED soft easy chew + NTL PO DIET RECOMMENDATIONS: Cardiac, CCHO MED (texture per NEWSPAPER PHOTOJOURNALIST) ------ ADDITIONAL RECOMMENDATIONS: 1) NEWSPAPER PHOTOJOURNALIST eval for appropriate texture (h/o MS w/ contractures, need for 1:1) 2) Wound Care: add ERI BID + MVI x1 + Vit C 250mg daily 3) A1C for eval (need for diet change to ccho low w/ 2x prot) 4) Check lytes daily on lasix, replete as needed 5) Add HIGH protein snacks in b/w meals 6) RE-CALIBRATE BED SCALE FOR ACCURATE CBW, currently reads in error
--- NOTE | 2019-01-19 14:43 | Surgery Progress Note ---
Surgery Progress Note Subjective Additional Comments no acute events. comfortable. awake and states she feels well. dressings changed. bariatric bed Objective Last 24 Hour Vital Signs Date Time Temp Pulse Resp B/P (MAP) Pulse Ox O2 Delivery O2 Flow Rate FiO2 01/19/19 12:00 89 01/19/19 12:00 Nasal Cannula 2.0 01/19/19 12:00 97.9 84 20 121/78 (92) 97 01/19/19 10:59 96 96 Nasal Cannula 2.0 28 01/19/19 10:59 96 96 Nasal Cannula 2.0 28 01/19/19 08:00 102 01/19/19 08:00 Nasal Cannula 2.0 01/19/19 08:00 98.1 96 20 152/79 (103) 92 01/19/19 07:18 97.7 01/19/19 06:40 102 Nasal Cannula 2.0 28 01/19/19 06:40 102 16 95 Nasal Cannula 2.0 28 01/19/19 06:38 95 Nasal Cannula 2.0 28 01/19/19 06:38 Nasal Cannula 2.0 28 01/19/19 04:00 Nasal Cannula 2.0 01/19/19 04:00 106 01/19/19 04:00 97.7 104 20 153/79 (103) 92 01/19/19 03:19 104 20 97 Nasal Cannula 2.0 28 01/19/19 03:02 28 01/19/19 03:02 102 20 95 Nasal Cannula 2.0 28 01/19/19 00:00 Nasal Cannula 2.0 01/19/19 00:00 97.9 105 20 159/99 (119) 93 01/19/19 00:00 100 01/18/19 22:56 Nasal Cannula 2.0 28 01/18/19 22:56 Nasal Cannula 2.0 28 01/18/19 20:58 149/95 01/18/19 20:00 98.2 116 20 149/95 (113) 92 01/18/19 20:00 Nasal Cannula 2.0 01/18/19 20:00 102 01/18/19 19:34 Nasal Cannula 2.0 28 01/18/19 19:34 95 Nasal Cannula 2.0 28 01/18/19 19:32 Nasal Cannula 2.0 28 01/18/19 19:32 Nasal Cannula 2.0 28 01/18/19 16:00 Nasal Cannula 2.0 01/18/19 16:00 98.2 107 20 149/81 (103) 96 01/18/19 16:00 102 01/18/19 15:13 Nasal Cannula 2.0 28 01/18/19 15:13 Nasal Cannula 2.0 28 I&O Intake and Output 01/18/19 01/19/19 19:00 07:00 Intake Total 1045 ml 605 ml Output Total 1000 ml 1300 ml Balance 45 ml -695 ml Intake Oral 250 ml 480 ml IV Total 795 ml 125 ml Output Urine Total 1000 ml 1300 ml # Bowel Movements 1 1 Dressing: saturated Wound: other Drains: other Cardiovascular: RSR Respiratory: clear Abdomen: soft, present bowel sounds, non-distended Extremities: edema, no cyanosis, other Laboratory Tests Test 01/19/19 03:15 White Blood Count 5.3 K/UL (4.8-10.8) Red Blood Count 4.08 M/UL (4.20-5.40) L Hemoglobin 11.1 G/DL (12.0-16.0) L Hematocrit 34.7 % (37.0-47.0) L Mean Corpuscular Volume 85 FL (80-99) Mean Corpuscular Hemoglobin 27.2 PG (27.0-31.0) Mean Corpuscular Hemoglobin Concent 32.0 G/DL (32.0-36.0) Red Cell Distribution Width 17.0 % (11.6-14.8) H Platelet Count 267 K/UL (150-450) Mean Platelet Volume 8.0 FL (6.5-10.1) Neutrophils (%) (Auto) 73.1 % (45.0-75.0) Lymphocytes (%) (Auto) 16.3 % (20.0-45.0) L Monocytes (%) (Auto) 6.4 % (1.0-10.0) Eosinophils (%) (Auto) 3.4 % (0.0-3.0) H Basophils (%) (Auto) 0.7 % (0.0-2.0) Sodium Level 139 MMOL/L (136-145) Potassium Level 4.5 MMOL/L (3.5-5.1) Chloride Level 103 MMOL/L (98-107) Carbon Dioxide Level 31 MMOL/L (21-32) Anion Gap 5 mmol/L (5-15) Blood Urea Nitrogen 11 mg/dL (7-18) Creatinine 0.6 MG/DL (0.55-1.30) Estimat Glomerular Filtration Rate mL/min (>60) Glucose Level 96 MG/DL (74-106) Calcium Level 9.0 MG/DL (8.5-10.1) Total Bilirubin 0.3 MG/DL (0.2-1.0) Aspartate Amino Transf (AST/SGOT) 28 U/L (15-37) Alanine Aminotransferase (ALT/SGPT) 26 U/L (12-78) Alkaline Phosphatase 118 U/L (46-116) H Total Protein 7.6 G/DL (6.4-8.2) Albumin 2.1 G/DL (3.4-5.0) L Globulin 5.5 g/dL Albumin/Globulin Ratio 0.4 (1.0-2.7) L Random Vancomycin Level 15.1 ug/mL Plan Problems: (1) Decubital ulcer Assessment & Plan: Pt presented on admission with multiple ,Pressure injuries, MASD bilateral breasts folds, abd folds, bilateral groin and medial aspects of both thighs. Erythema with denuded skin noted to affected areas. Moisture intertrigo noted to R groin. Scattered Nevi noted to back and medial aspects of both upper thighs.Pt also noted to have numerous skin tags medial upper thighs. Resolving pressure injury noted to sacral area.Base of wound with pink epithelial with surrounding hyperpigmentation .Small wound noted at sacrococcygeal area(L)1.0cm x (W)0.9cm. Base of wound is moist and viable. Hyperpigmentation from previous pressure injury noted in crevices of skin R ischium. Caregiver at bedside and stated pt has Hx of Recurrent pressure injuries to sacrum and R ischium.Hyperpigmentation noted to L ischium. L heel boggy with non-blanchable erythema non-tender when palpated. Non-blanchable erythema with fluctuance at base medial aspect of R heel. (L) 1.5cm x (W)2.3cm Edemae and Foot drop noted to both feet. Eschar with surrounding erythema noted to R 1st metatarsal head. Small amt purulent exudate noted when wound minimally palpated. Small partial thickness ulcers without exudate noted to dorsum of R 2nd,3rd,4th and 5th metatarsals.Wounds are erythematous at base .Periwound metatarsals are pale and shiny. Tx.Plan: Wash skin folds of both breasts and abd folds with soap and water. Apply Light dusting of Antifungal powder every shift. Apply Triad Paste to buttocks both ischial areas, bilat groin and medial / posterior aspects of both upper thighs with each incontinence care. Apply Triad Paste to sacrum.Cover with Optifoam drsg. Change every 3 days and prn. Swab R 1st metatarsal head with Betadine. Cover with Optifoam drsg Daily and prn. Apply Cavilon to both heels .Cover each heel with Optifoam drsg.Change every 7 days and prn. Apply Betadine to dorsals of 2nd,3rd,4th and 5th metatarsals. Bariatric bed with Air fluidized mattress. Reposition at least every 2hours or as tolerated. Off-load heels with pillow. (2) Multiple sclerosis (3) Obstipation Assessment & Plan: abdomen distended KUB noted and okay exam without tenderness decreased bowel sounds cont with diet will follow with exam (4) Urinary tract infection (5) Hypoxemia (6) Tachycardia (7) Pneumonia (8) Obesities, morbid Assessment & Plan: DAILY ESTIMATED NEEDS: Needs based on Pulmonary, obese 78kg adj 20-25 kcals/kg [id number] total kcals 1-1.5 g protein/kg 78-117 g total protein Fluid per MD, on lasix NUTRITION DIAGNOSIS: 1) Decreased sodium and fat intake needs R/T cardiac hx, PNA as evidenced by on diuretics, HTN, BMI >40, pt is @191% [place] Body Weight. 2) Self feeding difficulty r/t MS as evidenced by pt w/ BL UE contractures, requires 1:1 feedings. PO DIET RECOMMENDATIONS: Cardiac, CCHO MED (texture per PLATE MAKER ZINC) ---- ADDITIONAL RECOMMENDATIONS: 1) PLATE MAKER ZINC eval for appropriate texture (h/o MS w/ contractures, need for 1:1) 2) Wound Care: photos noted, pending MD eval 3) A1C for eval (need for diet change to ccho low w/ 2x prot) 4) Check lytes daily on lasix, replete as needed (Mg 1.6) (9) Encounter for generalized patient complaints John Toledo January 19, 2019 14:43
--- NOTE | 2019-01-19 15:00 | Diagnostic Imaging Report ---
Indication: Cough Comparison: 01/18/2019 A single view chest radiograph was obtained. Findings: Prominent pulmonary vascularity and heart size are demonstrated. Small pleural effusions are not excluded. IMPRESSION: Pulmonary vascular congestion. No significant change
--- NOTE | 2019-01-19 15:33 | NUR ---
ST NOTE: SWALLOWS/SPEECH/LANGUAGE/COGNITIONS STATUS: FOLLOWED PT'S CONDITIONS. CHART REVIEWED. PER RECENT CXR: Prominent pulmonary vascularity and heart size are demonstrated. Small pleural effusions are not excluded. PT SEEN AT BEDSIDE IN PM. ALERT, COOPERATIVE, VERBAL, WITH NC(2L). PER PT, FEELING BETTER, LESS COUGHING WAS REPORTED. REVIEWED MODIFIED BARIUM SWALLOW STUDY WITH PT, AND EDUCATED PT RE: ASPIRATION/REFLUX PRECAUTIONS. PT VERBALIZED THE GOOD UNDERSTANDING OF INFO GIVEN. REVIEWED MODIFIED BARIUM SWALLOW STUDY IMAGES. PLEASE REFER TO FULL REPORT IN ST NOTE UNDER CARE ACTIVITY. D/W RN, WILLY.
--- NOTE | 2019-01-19 15:53 | NUR ---
NURSE NOTES: Patient's caregiver brought in supply of Betaseron 0.3 mg vial. Supply sent in to pharmacy for dispense. Noted.
[2019-01-19] MEDS ORDERED: cefTRIAXone 1 GM in D5W 50 ML IVPB SCH (16:00)
--- NOTE | 2019-01-19 16:31 | NUR ---
NURSE NOTES: Dr. Quiroz seen and examined patient. MD ordered Lasix 20 mg IV x 1 and Lasix 20 mg PO QD starting tomorrow AM. Orders entered, noted, and carried out. Will continue to monitor patient.
--- NOTE | 2019-01-19 16:47 | NUR ---
SHOW HOST OR HOSTESSCAR EXAMINER SI: PNA. MULTIPLE SCLEROSIS. PYELONEPHRITIS VS: BP 152/79, P 97, T 98.1, RR 20, SpO2 96 on 2.0L O2 NC CXR:Pulmonary vascular congestion IS: CEFTRIAXONE 50ml IVPB VANCOMYCIN 275ml IVPB BACLOFEN 10mg ZANAFLEX 4mg ZOSYN 100ml METFORMIN 500mg SDU STATUS
--- NOTE | 2019-01-19 16:53 | Pulmonology Progress Note ---
Assessment/Plan Assessment/Plan 1. Pneumonia 2. UTI with chronic suprapubic catheter. 3. Multiple sclerosis. 4. Sinus tachycardia 5. Diabetes. 6. Hyponatremia. 7. Neurogenic bladder. 8. Hypertension. 9. Hyperlipidemia. some blood streaked sputum CXR with CHF usually on lasix - ordered soft diet abx per ID possible dc tomorrow Subjective Constitutional: Reports: no symptoms Respiratory: Reports: hemoptysis Allergies: Coded Allergies: SULFA (SULFONAMIDE ANTIBIOTICS) (Verified Allergy, Unknown, 11/22/17) Objective Last 24 Hour Vital Signs Date Time Temp Pulse Resp B/P (MAP) Pulse Ox O2 Delivery O2 Flow Rate FiO2 01/19/19 16:00 Nasal Cannula 2.0 01/19/19 15:07 98 98 Nasal Cannula 2.0 28 01/19/19 15:07 Nasal Cannula 2.0 28 01/19/19 12:00 89 01/19/19 12:00 Nasal Cannula 2.0 01/19/19 12:00 97.9 84 20 121/78 (92) 97 01/19/19 10:59 96 96 Nasal Cannula 2.0 28 01/19/19 10:59 96 96 Nasal Cannula 2.0 28 01/19/19 08:00 102 01/19/19 08:00 Nasal Cannula 2.0 01/19/19 08:00 98.1 96 20 152/79 (103) 92 01/19/19 07:18 97.7 01/19/19 06:40 102 Nasal Cannula 2.0 28 01/19/19 06:40 102 16 95 Nasal Cannula 2.0 28 01/19/19 06:38 95 Nasal Cannula 2.0 28 01/19/19 06:38 Nasal Cannula 2.0 28 01/19/19 04:00 Nasal Cannula 2.0 01/19/19 04:00 106 01/19/19 04:00 97.7 104 20 153/79 (103) 92 01/19/19 03:19 104 20 97 Nasal Cannula 2.0 28 01/19/19 03:02 28 01/19/19 03:02 102 20 95 Nasal Cannula 2.0 28 01/19/19 00:00 Nasal Cannula 2.0 01/19/19 00:00 97.9 105 20 159/99 (119) 93 01/19/19 00:00 100 01/18/19 22:56 Nasal Cannula 2.0 28 01/18/19 22:56 Nasal Cannula 2.0 28 01/18/19 20:58 149/95 01/18/19 20:00 98.2 116 20 149/95 (113) 92 01/18/19 20:00 Nasal Cannula 2.0 01/18/19 20:00 102 01/18/19 19:34 Nasal Cannula 2.0 28 01/18/19 19:34 95 Nasal Cannula 2.0 28 01/18/19 19:32 Nasal Cannula 2.0 28 01/18/19 19:32 Nasal Cannula 2.0 28 Intake and Output 01/18/19 01/19/19 19:00 07:00 Intake Total 1045 ml 605 ml Output Total 1000 ml 1300 ml Balance 45 ml -695 ml Intake Oral 250 ml 480 ml IV Total 795 ml 125 ml Output Urine Total 1000 ml 1300 ml # Bowel Movements 1 1 Objective obese General Appearance: no acute distress HEENT: atraumatic Respiratory/Chest: lungs clear Cardiovascular: normal rate Microbiology Date/Time Source Procedure Growth Status 01/17/19 04:00 Sputum Induced Gram Stain - Final Complete 01/17/19 04:00 Sputum Induced Sputum Culture - Final NORMAL UPPER RESPIRATORY CLARA PRESENT Complete Laboratory Tests 01/19/19 03:15: White Blood Count 5.3, Red Blood Count 4.08L, Hemoglobin 11.1L, Hematocrit 34.7L , Mean Corpuscular Volume 85, Mean Corpuscular Hemoglobin 27.2, Mean Corpuscular Hemoglobin Concent 32.0, Red Cell Distribution Width 17.0H, Platelet Count 267, Mean Platelet Volume 8.0, Neutrophils (%) (Auto) 73.1, Lymphocytes (%) (Auto) 16.3L, Monocytes (%) (Auto) 6.4, Eosinophils (%) (Auto) 3.4H, Basophils (%) (Auto) 0.7, Sodium Level 139, Potassium Level 4.5, Chloride Level 103, Carbon Dioxide Level 31, Anion Gap 5, Blood Urea Nitrogen 11, Creatinine 0.6, Estimat Glomerular Filtration Rate , Glucose Level 96, Calcium Level 9.0, Total Bilirubin 0.3, Aspartate Amino Transf (AST/SGOT) 28, Alanine Aminotransferase (ALT/SGPT) 26, Alkaline Phosphatase 118H, Total Protein 7.6, Albumin 2.1L, Globulin 5.5, Albumin/Globulin Ratio 0.4L, Random Vancomycin Level 15.1 Current Medications Medications (Trade) Dose Ordered Sig/Mj Route PRN Reason Start Time Stop Time Status Last Admin Dose Admin Acetaminophen (Tylenol) 650 mg Q4H PRN ORAL Mild Pain/Temp > 100.5 01/16/19 13:00 02/15/19 08:59 01/19/19 06:48 Albuterol/ Ipratropium (Albuterol/ Ipratropium) 3 ml Q4HRT HHN 01/16/19 15:00 01/21/19 02:59 01/19/19 03:02 Atorvastatin Calcium (Lipitor) 10 mg BEDTIME ORAL 01/16/19 21:00 02/15/19 20:59 01/18/19 20:58 Baclofen (Lioresal) 10 mg THREE TIMES A DAY ORAL 01/16/19 13:00 02/15/19 08:59 01/19/19 13:34 Ceftriaxone Sodium 1 gm/ Dextrose 50 ml @ 100 mls/hr Q24H IVPB 01/19/19 16:00 01/26/19 15:59 01/19/19 15:35 Furosemide (Lasix) 20 mg DAILY ORAL 01/20/19 09:00 02/19/19 08:59 Furosemide (Lasix) 20 mg ONCE IV 01/19/19 18:00 01/19/19 19:00 Guaifenesin/ Codeine Phosphate (Robitussin with codeine) 5 ml Q6H PRN ORAL For Cough 01/17/19 15:15 02/16/19 15:14 01/19/19 13:51 Metformin HCl (Glucophage) 500 mg TWICE A DAY ORAL 01/16/19 18:00 02/15/19 08:59 01/19/19 08:25 Pantoprazole (Protonix) 40 mg DAILY ORAL 01/17/19 09:00 02/15/19 08:59 01/19/19 08:25 Patient Own Medication (Patient's Own Med) 1 ea QOD SUBQ 01/18/19 09:00 02/17/19 08:59 01/18/19 08:51 Polyethylene Glycol (Miralax) 17 gm THREE TIMES A DAY ORAL 01/16/19 13:00 02/15/19 08:59 01/18/19 18:28 Ramipril (Altace) 2.5 mg Q24H ORAL 01/18/19 20:00 02/17/19 19:59 01/18/19 20:58 Tizanidine HCl (Zanaflex) 4 mg THREE TIMES A DAY ORAL 01/16/19 13:00 02/15/19 08:59 01/19/19 13:35 Robb Quiroz MD January 19, 2019 16:53
--- NOTE | 2019-01-19 16:58 | Cardiology Progress Note ---
Assessment/Plan Assessment/Plan 1. Hypotension, probably multifactorial, possibly volume related versus medication related 2. Pneumonia. 3. Multiple sclerosis. 4. Diabetes mellitus. 5. Chronic suprapubic catheter. 6. Decubitus ulcers 7. MS (multiple sclerosis) blood cx neg sofar still urine cx postive off ivf on acie low dose will review echo when i am able to pull up tele personally rev. sinus , borderline sinus tachy all torp neg mentally has improved sig more awake and responsive labs noted over all better now back on diuretic as cxr showed pvc . Subjective Cardiovascular: Denies: chest pain, lightheadedness Respiratory: Reports: cough, sputum - blood tinged at times ; Denies: shortness of breath Gastrointestinal/Abdominal: Denies: abdominal pain Genitourinary: Denies: burning Objective Last 24 Hour Vital Signs Date Time Temp Pulse Resp B/P (MAP) Pulse Ox O2 Delivery O2 Flow Rate FiO2 01/19/19 16:00 Nasal Cannula 2.0 01/19/19 15:07 98 98 Nasal Cannula 2.0 28 01/19/19 15:07 Nasal Cannula 2.0 28 01/19/19 12:00 89 01/19/19 12:00 Nasal Cannula 2.0 01/19/19 12:00 97.9 84 20 121/78 (92) 97 01/19/19 10:59 96 96 Nasal Cannula 2.0 28 01/19/19 10:59 96 96 Nasal Cannula 2.0 28 01/19/19 08:00 102 01/19/19 08:00 Nasal Cannula 2.0 01/19/19 08:00 98.1 96 20 152/79 (103) 92 01/19/19 07:18 97.7 01/19/19 06:40 102 Nasal Cannula 2.0 28 01/19/19 06:40 102 16 95 Nasal Cannula 2.0 28 01/19/19 06:38 95 Nasal Cannula 2.0 28 01/19/19 06:38 Nasal Cannula 2.0 28 01/19/19 04:00 Nasal Cannula 2.0 01/19/19 04:00 106 01/19/19 04:00 97.7 104 20 153/79 (103) 92 01/19/19 03:19 104 20 97 Nasal Cannula 2.0 28 01/19/19 03:02 28 01/19/19 03:02 102 20 95 Nasal Cannula 2.0 28 01/19/19 00:00 Nasal Cannula 2.0 01/19/19 00:00 97.9 105 20 159/99 (119) 93 01/19/19 00:00 100 01/18/19 22:56 Nasal Cannula 2.0 28 01/18/19 22:56 Nasal Cannula 2.0 28 01/18/19 20:58 149/95 01/18/19 20:00 98.2 116 20 149/95 (113) 92 01/18/19 20:00 Nasal Cannula 2.0 01/18/19 20:00 102 01/18/19 19:34 Nasal Cannula 2.0 28 01/18/19 19:34 95 Nasal Cannula 2.0 28 01/18/19 19:32 Nasal Cannula 2.0 28 01/18/19 19:32 Nasal Cannula 2.0 28 General Appearance: no apparent distress, alert, obese, patient on isolation Neck: supple Cardiovascular: normal rate Respiratory/Chest: lungs clear, normal breath sounds Abdomen: normal bowel sounds, non tender, soft Extremities: moderate edema Intake and Output 01/18/19 01/19/19 19:00 07:00 Intake Total 1045 ml 605 ml Output Total 1000 ml 1300 ml Balance 45 ml -695 ml Intake Oral 250 ml 480 ml IV Total 795 ml 125 ml Output Urine Total 1000 ml 1300 ml # Bowel Movements 1 1 Laboratory Tests Test 01/19/19 03:15 White Blood Count 5.3 K/UL (4.8-10.8) Red Blood Count 4.08 M/UL (4.20-5.40) L Hemoglobin 11.1 G/DL (12.0-16.0) L Hematocrit 34.7 % (37.0-47.0) L Mean Corpuscular Volume 85 FL (80-99) Mean Corpuscular Hemoglobin 27.2 PG (27.0-31.0) Mean Corpuscular Hemoglobin Concent 32.0 G/DL (32.0-36.0) Red Cell Distribution Width 17.0 % (11.6-14.8) H Platelet Count 267 K/UL (150-450) Mean Platelet Volume 8.0 FL (6.5-10.1) Neutrophils (%) (Auto) 73.1 % (45.0-75.0) Lymphocytes (%) (Auto) 16.3 % (20.0-45.0) L Monocytes (%) (Auto) 6.4 % (1.0-10.0) Eosinophils (%) (Auto) 3.4 % (0.0-3.0) H Basophils (%) (Auto) 0.7 % (0.0-2.0) Sodium Level 139 MMOL/L (136-145) Potassium Level 4.5 MMOL/L (3.5-5.1) Chloride Level 103 MMOL/L (98-107) Carbon Dioxide Level 31 MMOL/L (21-32) Anion Gap 5 mmol/L (5-15) Blood Urea Nitrogen 11 mg/dL (7-18) Creatinine 0.6 MG/DL (0.55-1.30) Estimat Glomerular Filtration Rate mL/min (>60) Glucose Level 96 MG/DL (74-106) Calcium Level 9.0 MG/DL (8.5-10.1) Total Bilirubin 0.3 MG/DL (0.2-1.0) Aspartate Amino Transf (AST/SGOT) 28 U/L (15-37) Alanine Aminotransferase (ALT/SGPT) 26 U/L (12-78) Alkaline Phosphatase 118 U/L (46-116) H Total Protein 7.6 G/DL (6.4-8.2) Albumin 2.1 G/DL (3.4-5.0) L Globulin 5.5 g/dL Albumin/Globulin Ratio 0.4 (1.0-2.7) L Random Vancomycin Level 15.1 ug/mL Microbiology Date/Time Source Procedure Growth Status 01/17/19 04:00 Sputum Induced Gram Stain - Final Complete 01/17/19 04:00 Sputum Induced Sputum Culture - Final NORMAL UPPER RESPIRATORY CLARA PRESENT Complete Krishna Perry MD January 19, 2019 16:58
--- NOTE | 2019-01-19 18:19 | NUR ---
TRANSFER TO FLOOR: Patient transferred to Telemetry Rm 208-1, per Dr. Quiroz. Report given to SHEMAR Pond. Belongings and medications given to SHEMAR Pond. Family informed of transfer.
--- NOTE | 2019-01-19 18:20 | NUR ---
NURSE NOTES: PT received from SHEMAR Stafford alert and oriented x3 with no acute s/s of distress noted. On 2L NC, saturating at 95% with no acute s/s of SOB. IV site asymptomatic and patent. Suprapubic catheter draining to clear and yellow urine. phototypesetting equipment monitor on - SR. Pt has redness on bilateral abdominal folds and bilateral breast folds, stage 2 sacral, hyperpigmentation and raised skin tags on medial thighs, redness on right heel, resolving pressure injury noted to sacral area, L heel boggy, non-blanchable erythema on R heel. Edema and Foot drop noted to both feet. Bed alarm on. Bed in lowest position, call light and belongings within reach.
[2019-01-19] MEDS ORDERED: guaiFENesin w/Codeine 5ml Liq ud ORAL PRN (18:31)
--- NOTE | 2019-01-19 19:15 | NUR ---
NURSE NOTES: Received pt. and report from SHEMAR Pond. Observed pt. resting in bed with both eyes open. ekg monitor is in placed, IV site intact, asymptomatic, and patent. Bed is in the lowest position, locked, and alarmed. Call light within reach. No signs/symptoms of acute distress noted at this time. Will continue plan of care.
--- NOTE | 2019-01-19 19:25 | NUR ---
HAND-OFF: Report given to SHEMAR Lynch. No acute s/s of distress noted.
[2019-01-19] MEDS: Ramipril 2.5mg cap ORAL SCH (20:31)
--- NOTE | 2019-01-19 20:45 | Cardiology Report ---
APPROVED REPORT EXAM: Two-dimensional and M-mode echocardiogram with Doppler and color Doppler. INDICATION Congestive Heart Failure M-Mode DIMENSIONS IVSd1.1 (0.7-1.1cm)Left Atrium (MM)3.8 (1.6-4.0cm) LVDd5.1 (3.5-5.6cm)Aortic Root3.0 (2.0-3.7cm) PWd0.9 (0.7-1.1cm)Aortic Cusp Exc.1.8 (1.5-2.0cm) IVSs1.6 cm LVDs3.4 (2.5-4.0cm) PWs1.1 cm Normal left ventricular chamber size, systolic function and wall motion. Left ventricular ejection fraction estimated to be 60-65%. Mild left ventricular hypertrophy by 2-D. Anterior Echo-free space, may be due to pericardial fat or effusion. All other cardiac chamber sizes are within normal limits. Aortic valve calcification with normal cusp excursion . Mildly thickened mitral valve leaflets with normal excursion. Mild mitral annulus and aortic root calcification. Pulmonic valve not well visualized. IVC at normal size with physiologic collapse . A color flow and spectral Doppler study was performed and revealed: No aortic insufficiency . Mitral diastolic velocities suggest reduced left ventricular relaxation c/w mild LV diastolic dysfunction (Grade I ) Mild mitral regurgitation. Mild tricuspid regurgitation. Tricuspid systolic velocities suggests peak right ventricular systolic pressure of 39mmHg,consistent with mild pulmonary hypertension .
[2019-01-20] VITALS (8 sets, daily range): BP systolic 133–185; BP diastolic 68–107
[2019-01-20] MEDS: Albuterol/Ipratropium 3ml neb HHN SCH ×6 (03:00→22:43)
[2019-01-20 06:51] LABS: BASOPHILS % (AUTO) 1.5 % (0.0-2.0); EOSINOPHILS % (AUTO) 4.3 % (0.0-3.0); HEMATOCRIT 38.8 % (37.0-47.0); HEMOGLOBIN 12.3 G/DL (12.0-16.0); LYMPHOCYTES % (AUTO) 19.4 % (20.0-45.0); MEAN CORPUSCULAR VOLUME 85 FL (80-99); MONOCYTES % (AUTO) 5.4 % (1.0-10.0); NEUTROPHILS % (AUTO) 69.4 % (45.0-75.0); PLATELET COUNT 277 K/UL (150-450); RED BLOOD COUNT 4.56 M/UL (4.20-5.40); RED CELL DISTRIBUTION WIDTH 17.1 % (11.6-14.8); WHITE BLOOD COUNT 5.4 K/UL (4.8-10.8)
[2019-01-20 07:11] LABS: ANION GAP 5 mmol/L (5-15); BLOOD UREA NITROGEN 9 mg/dL (7-18); CALCIUM 9.1 MG/DL (8.5-10.1); CARBON DIOXIDE 32 MMOL/L (21-32); CHLORIDE 103 MMOL/L (98-107); CREATININE 0.6 MG/DL (0.55-1.30); POTASSIUM 4.1 MMOL/L (3.5-5.1); SODIUM 140 MMOL/L (136-145)
--- NOTE | 2019-01-20 07:38 | NUR ---
HAND-OFF: Report given to SHEMAR Farr.
--- NOTE | 2019-01-20 08:00 | NUR ---
NURSE NOTES: received pt in the bed, awake, alert, oriented, BP 185/85, DR. Quiroz aware, no SOB, respiration regular, skin warm and dry to touch, tolerate diet well, paraplegic, bed in low position, HOB elevated, call light within reach.
[2019-01-20] MEDS: metFORMIN 500mg tab ORAL SCH ×2 (08:40→17:36)
[2019-01-20] MEDS: Miralax 17gm pkt ORAL SCH ×3 (08:40→18:00)
[2019-01-20] MEDS ORDERED: Lisinopril 20mg tab ORAL SCH ×3 (09:00→22:00)
--- NOTE | 2019-01-20 09:38 | Pulmonology Progress Note ---
Assessment/Plan Assessment/Plan 1. Pneumonia 2. UTI with chronic suprapubic catheter, e coli 3. Multiple sclerosis. 4. Sinus tachycardia 5. Diabetes. 6. Hyponatremia. 7. Neurogenic bladder. 8. Hypertension. 9. Hyperlipidemia. BP high ordered lisinopril hold dc Subjective Constitutional: Reports: no symptoms Allergies: Coded Allergies: SULFA (SULFONAMIDE ANTIBIOTICS) (Verified Allergy, Unknown, 11/22/17) Objective Last 24 Hour Vital Signs Date Time Temp Pulse Resp B/P (MAP) Pulse Ox O2 Delivery O2 Flow Rate FiO2 01/20/19 08:44 185/85 01/20/19 08:00 98.4 94 18 185/85 (118) 96 01/20/19 07:40 95 Nasal Cannula 2.0 28 01/20/19 07:40 Nasal Cannula 2.0 28 01/20/19 07:39 Nasal Cannula 2.0 28 01/20/19 07:39 Nasal Cannula 2.0 28 01/20/19 04:00 99.0 91 20 149/80 (103) 96 01/20/19 04:00 88 01/20/19 03:07 Nasal Cannula 2.0 28 01/20/19 03:07 Nasal Cannula 2.0 28 01/20/19 00:00 98.8 89 20 133/68 (89) 96 01/20/19 00:00 84 01/19/19 23:49 86 18 97 Nasal Cannula 2.0 28 01/19/19 23:39 88 18 95 Nasal Cannula 2.0 28 01/19/19 21:00 Nasal Cannula 2.0 01/19/19 20:31 122/66 01/19/19 20:00 98.1 95 20 122/66 (84) 95 01/19/19 20:00 89 01/19/19 19:11 96 Nasal Cannula 2.0 28 01/19/19 19:11 Nasal Cannula 2.0 28 01/19/19 19:11 Nasal Cannula 2.0 28 01/19/19 19:11 Nasal Cannula 2.0 28 01/19/19 18:16 98.4 95 18 130/79 (96) 95 01/19/19 16:00 Nasal Cannula 2.0 01/19/19 16:00 97.8 85 20 129/82 (98) 97 01/19/19 16:00 90 01/19/19 15:07 98 98 Nasal Cannula 2.0 28 01/19/19 15:07 Nasal Cannula 2.0 28 01/19/19 12:00 89 01/19/19 12:00 Nasal Cannula 2.0 01/19/19 12:00 97.9 84 20 121/78 (92) 97 01/19/19 10:59 96 96 Nasal Cannula 2.0 28 01/19/19 10:59 96 96 Nasal Cannula 2.0 28 Intake and Output 01/19/19 01/20/19 18:59 06:59 Intake Total 505 ml Output Total 1200 ml 1900 ml Balance -695 ml -1900 ml Intake Oral 480 ml IV Total 25 ml Output Urine Total 1200 ml 1900 ml # Bowel Movements 2 Objective obese HEENT: normocephalic Respiratory/Chest: lungs clear Cardiovascular: normal rate Laboratory Tests 01/20/19 05:30: White Blood Count 5.4, Red Blood Count 4.56, Hemoglobin 12.3, Hematocrit 38.8, Mean Corpuscular Volume 85, Mean Corpuscular Hemoglobin 27.0, Mean Corpuscular Hemoglobin Concent 31.7L, Red Cell Distribution Width 17.1H, Platelet Count 277 , Mean Platelet Volume 7.3, Neutrophils (%) (Auto) 69.4, Lymphocytes (%) (Auto) 19.4L, Monocytes (%) (Auto) 5.4, Eosinophils (%) (Auto) 4.3H, Basophils (%) ( Auto) 1.5, Sodium Level 140, Potassium Level 4.1, Chloride Level 103, Carbon Dioxide Level 32, Anion Gap 5, Blood Urea Nitrogen 9, Creatinine 0.6, Estimat Glomerular Filtration Rate , Glucose Level 124H, Calcium Level 9.1 Current Medications Medications (Trade) Dose Ordered Sig/Mj Route PRN Reason Start Time Stop Time Status Last Admin Dose Admin Acetaminophen (Tylenol) 650 mg Q4H PRN ORAL Mild Pain/Temp > 100.5 01/19/19 18:30 02/15/19 18:29 01/19/19 23:05 Albuterol/ Ipratropium (Albuterol/ Ipratropium) 3 ml Q4HRT HHN 01/19/19 19:00 01/21/19 02:59 01/19/19 23:39 Atorvastatin Calcium (Lipitor) 10 mg BEDTIME ORAL 01/19/19 21:00 02/15/19 20:59 01/19/19 20:30 Baclofen (Lioresal) 10 mg THREE TIMES A DAY ORAL 01/20/19 09:00 02/15/19 08:59 01/20/19 08:40 Ceftriaxone Sodium 1 gm/ Dextrose 50 ml @ 100 mls/hr Q24H IVPB 01/20/19 16:00 01/26/19 15:59 Furosemide (Lasix) 20 mg DAILY ORAL 01/20/19 09:00 02/19/19 08:59 01/20/19 08:40 Guaifenesin/ Codeine Phosphate (Robitussin with codeine) 5 ml Q6H PRN ORAL For Cough 01/19/19 18:31 02/16/19 18:30 01/20/19 08:47 Lisinopril (Prinivil) 20 mg DAILY ORAL 01/20/19 09:00 02/19/19 08:59 01/20/19 08:44 Metformin HCl (Glucophage) 500 mg TWICE A DAY ORAL 01/20/19 09:00 02/15/19 08:59 01/20/19 08:40 Pantoprazole (Protonix) 40 mg DAILY ORAL 01/20/19 09:00 02/15/19 08:59 01/20/19 08:39 Patient Own Medication (Patient's Own Med) 1 ea QOD SUBQ 01/20/19 09:00 02/17/19 08:59 01/20/19 09:29 Polyethylene Glycol (Miralax) 17 gm THREE TIMES A DAY ORAL 01/20/19 09:00 02/15/19 08:59 Ramipril (Altace) 2.5 mg Q24H ORAL 01/19/19 20:00 02/17/19 19:59 01/19/19 20:31 Tizanidine HCl (Zanaflex) 4 mg THREE TIMES A DAY ORAL 01/20/19 09:00 02/15/19 08:59 01/20/19 08:39 Robb Quiroz MD January 20, 2019 09:38
--- NOTE | 2019-01-20 10:00 | NUR ---
*-* INSURANCE *-* UPDATED CLINICALS AND REVIEW HAVE BEEN FAXED TO: [facility] ..SHE WILL HANDLE THIS ADMISSION.. P- [phone] F- [phone].....REVIEW/CLINICAL REF# [id number]
--- NOTE | 2019-01-20 11:02 | Surgery Progress Note ---
Surgery Progress Note Subjective Additional Comments no acute events. comfortable. stable. labs noted. dressings intact Objective Last 24 Hour Vital Signs Date Time Temp Pulse Resp B/P (MAP) Pulse Ox O2 Delivery O2 Flow Rate FiO2 01/20/19 10:47 Nasal Cannula 2.0 28 01/20/19 10:47 Nasal Cannula 2.0 28 01/20/19 09:38 98.4 01/20/19 09:00 Nasal Cannula 2.0 01/20/19 08:44 185/85 01/20/19 08:00 98.4 94 18 185/85 (118) 96 01/20/19 08:00 106 01/20/19 07:40 95 Nasal Cannula 2.0 28 01/20/19 07:40 Nasal Cannula 2.0 28 01/20/19 07:39 Nasal Cannula 2.0 28 01/20/19 07:39 Nasal Cannula 2.0 28 01/20/19 04:00 99.0 91 20 149/80 (103) 96 01/20/19 04:00 88 01/20/19 03:07 Nasal Cannula 2.0 28 01/20/19 03:07 Nasal Cannula 2.0 28 01/20/19 00:00 98.8 89 20 133/68 (89) 96 01/20/19 00:00 84 01/19/19 23:49 86 18 97 Nasal Cannula 2.0 28 01/19/19 23:39 88 18 95 Nasal Cannula 2.0 28 01/19/19 21:00 Nasal Cannula 2.0 01/19/19 20:31 122/66 01/19/19 20:00 98.1 95 20 122/66 (84) 95 01/19/19 20:00 89 01/19/19 19:11 96 Nasal Cannula 2.0 28 01/19/19 19:11 Nasal Cannula 2.0 28 01/19/19 19:11 Nasal Cannula 2.0 28 01/19/19 19:11 Nasal Cannula 2.0 28 01/19/19 18:16 98.4 95 18 130/79 (96) 95 01/19/19 16:00 Nasal Cannula 2.0 01/19/19 16:00 97.8 85 20 129/82 (98) 97 01/19/19 16:00 90 01/19/19 15:07 98 98 Nasal Cannula 2.0 28 01/19/19 15:07 Nasal Cannula 2.0 28 01/19/19 12:00 89 01/19/19 12:00 Nasal Cannula 2.0 01/19/19 12:00 97.9 84 20 121/78 (92) 97 I&O Intake and Output 01/19/19 01/20/19 18:59 06:59 Intake Total 505 ml Output Total 1200 ml 1900 ml Balance -695 ml -1900 ml Intake Oral 480 ml IV Total 25 ml Output Urine Total 1200 ml 1900 ml # Bowel Movements 2 Dressing: saturated Wound: other Drains: other Cardiovascular: RSR Respiratory: decreased breath sounds Abdomen: soft, flat, present bowel sounds, non-distended Extremities: tenderness, no cyanosis Laboratory Tests Test 01/20/19 05:30 White Blood Count 5.4 K/UL (4.8-10.8) Red Blood Count 4.56 M/UL (4.20-5.40) Hemoglobin 12.3 G/DL (12.0-16.0) Hematocrit 38.8 % (37.0-47.0) Mean Corpuscular Volume 85 FL (80-99) Mean Corpuscular Hemoglobin 27.0 PG (27.0-31.0) Mean Corpuscular Hemoglobin Concent 31.7 G/DL (32.0-36.0) L Red Cell Distribution Width 17.1 % (11.6-14.8) H Platelet Count 277 K/UL (150-450) Mean Platelet Volume 7.3 FL (6.5-10.1) Neutrophils (%) (Auto) 69.4 % (45.0-75.0) Lymphocytes (%) (Auto) 19.4 % (20.0-45.0) L Monocytes (%) (Auto) 5.4 % (1.0-10.0) Eosinophils (%) (Auto) 4.3 % (0.0-3.0) H Basophils (%) (Auto) 1.5 % (0.0-2.0) Sodium Level 140 MMOL/L (136-145) Potassium Level 4.1 MMOL/L (3.5-5.1) Chloride Level 103 MMOL/L (98-107) Carbon Dioxide Level 32 MMOL/L (21-32) Anion Gap 5 mmol/L (5-15) Blood Urea Nitrogen 9 mg/dL (7-18) Creatinine 0.6 MG/DL (0.55-1.30) Estimat Glomerular Filtration Rate mL/min (>60) Glucose Level 124 MG/DL (74-106) H Calcium Level 9.1 MG/DL (8.5-10.1) Plan Problems: (1) Decubital ulcer Assessment & Plan: Pt presented on admission with multiple ,Pressure injuries, MASD bilateral breasts folds, abd folds, bilateral groin and medial aspects of both thighs. Erythema with denuded skin noted to affected areas. Moisture intertrigo noted to R groin. Scattered Nevi noted to back and medial aspects of both upper thighs.Pt also noted to have numerous skin tags medial upper thighs. Resolving pressure injury noted to sacral area.Base of wound with pink epithelial with surrounding hyperpigmentation .Small wound noted at sacrococcygeal area(L)1.0cm x (W)0.9cm. Base of wound is moist and viable. Hyperpigmentation from previous pressure injury noted in crevices of skin R ischium. Caregiver at bedside and stated pt has Hx of Recurrent pressure injuries to sacrum and R ischium.Hyperpigmentation noted to L ischium. L heel boggy with non-blanchable erythema non-tender when palpated. Non-blanchable erythema with fluctuance at base medial aspect of R heel. (L) 1.5cm x (W)2.3cm Edemae and Foot drop noted to both feet. Eschar with surrounding erythema noted to R 1st metatarsal head. Small amt purulent exudate noted when wound minimally palpated. Small partial thickness ulcers without exudate noted to dorsum of R 2nd,3rd,4th and 5th metatarsals.Wounds are erythematous at base .Periwound metatarsals are pale and shiny. Tx.Plan: Wash skin folds of both breasts and abd folds with soap and water. Apply Light dusting of Antifungal powder every shift. Apply Triad Paste to buttocks both ischial areas, bilat groin and medial / posterior aspects of both upper thighs with each incontinence care. Apply Triad Paste to sacrum.Cover with Optifoam drsg. Change every 3 days and prn. Swab R 1st metatarsal head with Betadine. Cover with Optifoam drsg Daily and prn. Apply Cavilon to both heels .Cover each heel with Optifoam drsg.Change every 7 days and prn. Apply Betadine to dorsals of 2nd,3rd,4th and 5th metatarsals. Bariatric bed with Air fluidized mattress. Reposition at least every 2hours or as tolerated. Off-load heels with pillow. (2) Multiple sclerosis (3) Obstipation Assessment & Plan: abdomen distended KUB noted and okay exam without tenderness decreased bowel sounds cont with diet will follow with exam (4) Urinary tract infection (5) Hypoxemia (6) Tachycardia (7) Pneumonia (8) Obesities, morbid Assessment & Plan: DAILY ESTIMATED NEEDS: Needs based on Pulmonary, obese 78kg adj 20-25 kcals/kg 9800-3006 total kcals 1-1.5 g protein/kg 78-117 g total protein Fluid per MD, on lasix NUTRITION DIAGNOSIS: 1) Decreased sodium and fat intake needs R/T cardiac hx, PNA as evidenced by on diuretics, HTN, BMI >40, pt is @191% [place] Body Weight. 2) Self feeding difficulty r/t MS as evidenced by pt w/ BL UE contractures, requires 1:1 feedings. PO DIET RECOMMENDATIONS: Cardiac, CCHO MED (texture per GAME AND FISH PROTECTOR) ---- ADDITIONAL RECOMMENDATIONS: 1) GAME AND [employer] PROTECTOR eval for appropriate texture (h/o MS w/ contractures, need for 1:1) 2) Wound Care: photos noted, pending MD eval 3) A1C for eval (need for diet change to ccho low w/ 2x prot) 4) Check lytes daily on lasix, replete as needed (Mg 1.6) (9) Encounter for generalized patient complaints John Toledo January 20, 2019 11:02
--- NOTE | 2019-01-20 13:32 | NUR ---
ST NOTE: SWALLOW/SPEECH/LANGUAGE/COGNITION STATUS: PT SEEN AT BEDSIDE IN PM WITH PT'S CAREGIVER PRESENTED. PER PT, DID NOT SLEEP WELL LAST NIGHT. BUT FEELING OKAY. PT WITH NC(2L). PT'S OXYGEN LEVEL" 92-93. VOICE IS CLEAR. STILL HAS SOME COUGHING WAS NOTED. COMPLETED BREATHING EXS X 10 TIMES WITH PT WITH VERBAL AND VISUAL CUES. COMPLETED LARYNGEAL EXS X 10 TIMES WITH VERBAL AND VISUAL CUES. DISCUSSED WITH PT'S CAREGIVER RE: PT'S CONDITIONS AND ASPIRATION PRECAUTIONS. PT VERBALIZED THE GOOD UNDERSTANDING OF INFO GIVEN. D/W PT AND CAREGIVER.
--- NOTE | 2019-01-20 15:42 | Diagnostic Imaging Report ---
Indication: Dysphasia Procedure and findings: Real-time fluoroscopic imaging performed in a lateral projection in conjunction with the speech pathologist evaluation. Variable consistencies of barium given per mouth. Findings: Significant abnormalities of both oral and pharyngeal phases of swallowing are demonstrated. Deep laryngeal penetration demonstrated. No aspiration identified Total fluoroscopic time: 311 seconds. Abnormal video swallow. Please refer to speech pathology evaluation for more information.
[2019-01-20] MEDS ORDERED: cefTRIAXone 1 GM in D5W 50 ML IVPB SCH (16:00)
--- NOTE | 2019-01-20 16:10 | NUR ---
PHOTONICS ENGINEERING TECHNOLOGISTLINE TENDER SI: PNA. DECUBITAL ULCER . PYELONEPHRITIS VS: BP 163/80, P 103, T 98.1, RR 18, SpO2 94 on 2.0L O2 NC CXR:Pulmonary vascular congestion IS: BACLOFEN 10mg ZANAFLEX 4mg LISINOPRIL 20mg PROTONIX 40mg METFORMIN 500mg SDU STATUS
--- NOTE | 2019-01-20 17:13 | NUR ---
RESPIRATORY NOTE: spoke to Dr. Quiroz regarding pt refusing breathing tx and asked to change to PRN and said yes. RNChika notified.
--- NOTE | 2019-01-20 18:23 | Cardiology Progress Note ---
Assessment/Plan Assessment/Plan 1. Hypotension, probably multifactorial, possibly volume related versus medication related (resolved) 2. Pneumonia. 3. Multiple sclerosis. 4. Diabetes mellitus. 5. Chronic suprapubic catheter. 6. Decubitus ulcers 7. MS (multiple sclerosis) blood cx neg sofar still urine cx postive off ivf on acie low dose increase dose echo report noted nomral lv fxn tele personally rev. sinus , borderline sinus tachy all torp neg mentally at baseline labs noted over all better now back on diuretic as cxr showed pvc . Subjective Cardiovascular: Denies: chest pain, lightheadedness Respiratory: Reports: cough; Denies: shortness of breath Gastrointestinal/Abdominal: Reports: abdominal pain Genitourinary: Denies: burning Objective Last 24 Hour Vital Signs Date Time Temp Pulse Resp B/P (MAP) Pulse Ox O2 Delivery O2 Flow Rate FiO2 01/20/19 17:38 163/80 01/20/19 16:00 106 01/20/19 16:00 98.3 103 18 163/80 (107) 94 01/20/19 14:37 Nasal Cannula 2.0 28 01/20/19 14:37 Nasal Cannula 2.0 28 01/20/19 13:48 98.1 01/20/19 12:00 98.1 102 18 143/80 (101) 94 01/20/19 12:00 100 01/20/19 10:47 Nasal Cannula 2.0 28 01/20/19 10:47 Nasal Cannula 2.0 28 01/20/19 09:00 Nasal Cannula 2.0 01/20/19 08:44 185/85 01/20/19 08:00 98.4 94 18 185/85 (118) 96 01/20/19 08:00 106 01/20/19 07:40 95 Nasal Cannula 2.0 28 01/20/19 07:40 Nasal Cannula 2.0 28 01/20/19 07:39 Nasal Cannula 2.0 28 01/20/19 07:39 Nasal Cannula 2.0 28 01/20/19 04:00 99.0 91 20 149/80 (103) 96 01/20/19 04:00 88 01/20/19 03:07 Nasal Cannula 2.0 28 01/20/19 03:07 Nasal Cannula 2.0 28 01/20/19 00:00 98.8 89 20 133/68 (89) 96 01/20/19 00:00 84 01/19/19 23:49 86 18 97 Nasal Cannula 2.0 28 01/19/19 23:39 88 18 95 Nasal Cannula 2.0 28 01/19/19 21:00 Nasal Cannula 2.0 01/19/19 20:31 122/66 01/19/19 20:00 98.1 95 20 122/66 (84) 95 01/19/19 20:00 89 01/19/19 19:11 96 Nasal Cannula 2.0 28 01/19/19 19:11 Nasal Cannula 2.0 28 01/19/19 19:11 Nasal Cannula 2.0 28 01/19/19 19:11 Nasal Cannula 2.0 28 General Appearance: no apparent distress, alert, obese, patient on isolation Cardiovascular: normal rate Respiratory/Chest: lungs clear Abdomen: normal bowel sounds, non tender, soft Extremities: no swelling Intake and Output 01/19/19 01/20/19 19:00 07:00 Intake Total 505 ml Output Total 1200 ml 1900 ml Balance -695 ml -1900 ml Intake Oral 480 ml IV Total 25 ml Output Urine Total 1200 ml 1900 ml # Bowel Movements 2 Laboratory Tests Test 01/20/19 05:30 White Blood Count 5.4 K/UL (4.8-10.8) Red Blood Count 4.56 M/UL (4.20-5.40) Hemoglobin 12.3 G/DL (12.0-16.0) Hematocrit 38.8 % (37.0-47.0) Mean Corpuscular Volume 85 FL (80-99) Mean Corpuscular Hemoglobin 27.0 PG (27.0-31.0) Mean Corpuscular Hemoglobin Concent 31.7 G/DL (32.0-36.0) L Red Cell Distribution Width 17.1 % (11.6-14.8) H Platelet Count 277 K/UL (150-450) Mean Platelet Volume 7.3 FL (6.5-10.1) Neutrophils (%) (Auto) 69.4 % (45.0-75.0) Lymphocytes (%) (Auto) 19.4 % (20.0-45.0) L Monocytes (%) (Auto) 5.4 % (1.0-10.0) Eosinophils (%) (Auto) 4.3 % (0.0-3.0) H Basophils (%) (Auto) 1.5 % (0.0-2.0) Sodium Level 140 MMOL/L (136-145) Potassium Level 4.1 MMOL/L (3.5-5.1) Chloride Level 103 MMOL/L (98-107) Carbon Dioxide Level 32 MMOL/L (21-32) Anion Gap 5 mmol/L (5-15) Blood Urea Nitrogen 9 mg/dL (7-18) Creatinine 0.6 MG/DL (0.55-1.30) Estimat Glomerular Filtration Rate mL/min (>60) Glucose Level 124 MG/DL (74-106) H Calcium Level 9.1 MG/DL (8.5-10.1) Krishna Perry MD January 20, 2019 18:23
--- NOTE | 2019-01-20 19:15 | NUR ---
HAND-OFF: Report given to KRISTIAN STATON, NO DISTRESS NOTED.
--- NOTE | 2019-01-20 19:30 | NUR ---
NURSE NOTES: Received patient from Chika STATON. Patient alert and oriented x 4. On 2L NC, no signs of respiratory distress. Patient c/o headache, was given tylenol at 1900, will continue to monitor. Suprapubic catheter intact, patent, with yellow colored output. Air mattress on, heels elevated. Bed locked, call light within reach.
--- NOTE | 2019-01-20 20:00 | NUR ---
NURSE NOTES: Patient c/o insomnia and spasms, requested bacofen, zanaflex, and trazodone. Notifed Dr. Quiroz of patient's request and that patient still has a headache.
[2019-01-20] MEDS: Ramipril 2.5mg cap ORAL SCH (20:05)
--- NOTE | 2019-01-20 20:15 | NUR ---
NURSE NOTES: Received orders for only trazodone 50mg po qhs prn from Dr. Quiroz.
[2019-01-20] MEDS ORDERED: TraZODone 50mg tab ORAL PRN (20:30)
[2019-01-20] MEDS ORDERED: TraZODone 100mg tab ORAL PRN (21:45)
[2019-01-20] MEDS ORDERED: Lisinopril 20mg tab ORAL ONE (21:45)
[2019-01-20] MEDS ORDERED: TraZODone 50mg tab ORAL SCH (22:00)
[2019-01-20] MEDS ORDERED: TraZODone HCl 25 mg tablet ORAL SCH (22:00)
[2019-01-21] VITALS (58 sets, daily range): BP systolic 85–211; BP diastolic 7–130
--- NOTE | 2019-01-21 00:03 | NUR ---
NURSE NOTES: Notified Dr. Dill covering for Dr. Qiuroz. Informed Dr. Dill of patient's continued high blood pressure. Informed her that patient already received lisinopril 20mg po and ramipril 2.5mg po earlier with no effect. Received orders for hydralazine 10mg ivp q 6 hrs prn for sbp>170.
--- NOTE | 2019-01-21 01:19 | NUR ---
NURSE NOTES: Notified Dr. Dill of BP 211/126, HR 120. Received orders for transfer to ICU and to call Dr. Perry for bp meds.
--- NOTE | 2019-01-21 02:15 | NUR ---
NURSE NOTES: Transferred in per bed from [facility] for high blood pressure. Pt is awake, alert, orientedx4 and in no distress. Pt is morbidly obese, on [place] bed and is basically bedbound. Pt's BUE contracted, noted a HL on Rhand but not patent. Pt also has a suprapubic cath draining large amts of clear yellow urine. On 2l via NC; coughing productively as well. Denies SOB, denies chest pains. BP measured on right arm and reading 202/103. Pt c/o pain on right arm on BP measurement; transferred BP cuff to right calf. Pt has dry scabs on posterior thighs; skin erosion on sacral/buttocks area and also moist reddened kobe under breasts and abdominal folds. Called Dr Perry for orders.
--- NOTE | 2019-01-21 02:15 | NUR ---
NURSE NOTES: Patient transferred to ICU, report given to receiving RN. Notified China Ribera (Person to Notify) at [phone] and left message regarding transfer of patient to ICU.
--- NOTE | 2019-01-21 03:00 | NUR ---
NURSE NOTES: Nipride gtt started at 0.3mcg/kg/min. Will monitor BP q15min and titrate Nipride if needed. Clonidine 0.1 mg po given as well
--- NOTE | 2019-01-21 03:00 | NUR ---
NURSE NOTES: Inserted a new PIV site on L hand area using g 24 angiocath. BP 202/94; started Nipride gtt at 0.3mcg/kg/min. Will monitor BP [id number]
[2019-01-21] MEDS: Albuterol/Ipratropium 3ml neb HHN SCH ×3 (03:30→10:31)
--- NOTE | 2019-01-21 05:45 | NUR ---
NURSE NOTES: Calm, asleep. BP 114/61. Nipride gtt turned off
--- NOTE | 2019-01-21 06:30 | NUR ---
NURSE NOTES: BP 178/84; restarted Nipride gtt at 0.3mcg/kg/min
--- NOTE | 2019-01-21 07:20 | NUR ---
HAND-OFF: Report given to Dea STATON.
--- NOTE | 2019-01-21 07:30 | NUR ---
NURSE NOTES: Received the patient from SHEMAR Bingham. Patient is asleep, easily arousble, alert and oriented, morbidly obese On 2L O2 via NC, O2 sat 100%. No acute distress noted. SR noted on the monitor. Right hand 20G and left hand 24G intact, running nipride gtt at 0.3mc/kg/min, BP stable. Suprapubic cath intact and patent, draining urine by gravity. wound dressings intact. Bed in lowest position, locked, side rails upx3. Call light within reach. Will continue to monitor.
--- NOTE | 2019-01-21 08:25 | NUR ---
NURSE NOTES: Pt noted with BP 187/76, pt asymptomatic, increased Nipride drip to 0.6mcg/kg/min.
[2019-01-21] MEDS: metFORMIN 500mg tab ORAL SCH ×2 (08:37→17:11)
--- NOTE | 2019-01-21 08:40 | NUR ---
NURSE NOTES: Patient was repositioned. pt noted with coughing. Nipride drip kept at 6mcg/kg/min
--- NOTE | 2019-01-21 08:45 | NUR ---
NURSE NOTES: Patient is awake, alert and oriented, able to follow commands, talkative. Patient eating breakfast in bed.
[2019-01-21] MEDS ORDERED: Miralax 17gm pkt ORAL SCH (09:00)
[2019-01-21] MEDS ORDERED: Lisinopril 20mg tab ORAL SCH ×2 (09:00)
--- NOTE | 2019-01-21 09:08 | NUR ---
NURSE NOTES: Changed blood pressure cuff to right arm, noted with BP 85/41. turned off Nipride drip. Patient having breakfast in bed, 1:1 feed.
--- NOTE | 2019-01-21 09:15 | NUR ---
HAND-OFF: Report given to SHEMAR Teresa.
[2019-01-21] MEDS ORDERED: D5W 275ml ONE (10:28)
[2019-01-21] MEDS ORDERED: NS 275ml ONE (10:36)
[2019-01-21] MEDS ORDERED: Tubing IV Secondary IV ONE (10:36)
--- NOTE | 2019-01-21 10:36 | NUR ---
NURSE NOTES: Patient sleep in bed comfortably. No acute distress noted. VSS.
--- NOTE | 2019-01-21 11:00 | NUR ---
NURSE NOTES: Patient failed weaning trial on CPAP immediately per RT. Back to AC mode, continue with previous vent settings
--- NOTE | 2019-01-21 11:22 | Surgery Progress Note ---
Surgery Progress Note Subjective Additional Comments transferred to ICU on nipride gtt. exam stable. micro noted. Objective Last 24 Hour Vital Signs Date Time Temp Pulse Resp B/P (MAP) Pulse Ox O2 Delivery O2 Flow Rate FiO2 01/21/19 11:00 98 18 155/70 (98) 99 01/21/19 10:45 97 16 157/69 (98) 99 01/21/19 10:31 Nasal Cannula 2.0 28 01/21/19 10:31 Nasal Cannula 2.0 28 01/21/19 10:30 82 16 106/7 (40) 100 01/21/19 10:15 81 16 99/50 (66) 99 01/21/19 10:10 81 16 100/49 (66) 99 01/21/19 10:00 82 16 92/47 (62) 99 01/21/19 09:45 84 16 89/45 (60) 100 01/21/19 09:30 89 17 110/53 (72) 99 01/21/19 09:20 90 20 86/42 (57) 96 01/21/19 09:15 97 18 93/52 (66) 96 01/21/19 09:10 102 18 85/41 (56) 97 01/21/19 09:00 106 18 113/51 (71) 97 01/21/19 08:45 107 18 180/80 (113) 97 01/21/19 08:37 186/87 01/21/19 08:30 105 19 186/87 (120) 97 01/21/19 08:15 106 21 187/76 (113) 97 01/21/19 08:00 98.6 96 17 154/73 (100) 97 01/21/19 08:00 Nasal Cannula 2.0 01/21/19 08:00 99 01/21/19 07:45 94 16 124/70 (88) 97 01/21/19 07:30 97 16 124/65 (84) 98 01/21/19 07:15 95 15 120/64 (82) 98 01/21/19 07:11 Nasal Cannula 2.0 28 01/21/19 07:11 Nasal Cannula 2.0 28 01/21/19 07:10 Nasal Cannula 2.0 28 01/21/19 07:10 99 Nasal Cannula 2.0 28 01/21/19 07:00 98 16 139/66 (90) 99 01/21/19 06:45 95 16 160/81 (107) 97 01/21/19 06:30 98 17 178/84 (115) 98 01/21/19 06:15 93 17 157/101 (119) 99 01/21/19 06:00 98 18 138/77 (97) 98 01/21/19 05:45 96 17 114/61 (78) 98 01/21/19 05:30 94 17 125/75 (92) 98 01/21/19 05:15 103 17 117/73 (88) 97 01/21/19 05:00 103 19 113/60 (77) 96 01/21/19 04:45 108 17 138/56 (83) 96 01/21/19 04:30 108 21 137/59 (85) 96 01/21/19 04:15 104 16 164/73 (103) 97 01/21/19 04:08 Nasal Cannula 2.0 01/21/19 04:07 108 01/21/19 04:00 98.3 114 20 129/59 (82) 95 01/21/19 03:45 123 17 202/76 (118) 94 01/21/19 03:35 109 16 98 Nasal Cannula 2.0 28 01/21/19 03:30 108 16 177/82 (113) 98 01/21/19 03:25 109 16 95 Nasal Cannula 2.0 28 01/21/19 03:17 202/94 01/21/19 03:15 111 20 161/72 (101) 96 01/21/19 03:00 104 17 202/94 (130) 96 01/21/19 02:45 107 17 204/103 (136) 96 01/21/19 02:30 113 19 203/124 (150) 95 01/21/19 02:16 112 22 196/130 (152) 98 01/21/19 01:20 99.3 120 28 211/126 (154) 92 01/21/19 00:24 175/107 01/20/19 23:54 98.9 116 28 175/107 (129) 92 01/20/19 23:37 113 01/20/19 21:53 172/100 01/20/19 21:30 172/100 (124) 01/20/19 21:00 Nasal Cannula 2.0 01/20/19 20:51 Nasal Cannula 2.0 28 01/20/19 20:51 94 Nasal Cannula 2.0 28 01/20/19 20:05 175/97 01/20/19 20:00 98.4 104 20 175/97 (123) 93 01/20/19 19:03 98.4 01/20/19 18:40 98.3 01/20/19 17:38 163/80 01/20/19 16:00 106 01/20/19 16:00 98.3 103 18 163/80 (107) 94 01/20/19 14:37 Nasal Cannula 2.0 28 01/20/19 14:37 Nasal Cannula 2.0 28 01/20/19 12:00 98.1 102 18 143/80 (101) 94 01/20/19 12:00 100 I&O Intake and Output 01/20/19 01/21/19 18:59 06:59 Intake Total 690 ml 137.88 ml Output Total 1300 ml 1940 ml Balance -610 ml -1802.12 ml Intake Oral 640 ml 120 ml IV Total 50 ml 17.88 ml Output Urine Total 1300 ml 1940 ml # Bowel Movements 1 2 Dressing: dry Wound: other Drains: other Cardiovascular: RSR Respiratory: clear Abdomen: soft, present bowel sounds, non-distended Extremities: no tenderness, no cyanosis Plan Problems: (1) Decubital ulcer Assessment & Plan: Pt presented on admission with multiple ,Pressure injuries, MASD bilateral breasts folds, abd folds, bilateral groin and medial aspects of both thighs. Erythema with denuded skin noted to affected areas. Moisture intertrigo noted to R groin. Scattered Nevi noted to back and medial aspects of both upper thighs.Pt also noted to have numerous skin tags medial upper thighs. Resolving pressure injury noted to sacral area.Base of wound with pink epithelial with surrounding hyperpigmentation .Small wound noted at sacrococcygeal area(L)1.0cm x (W)0.9cm. Base of wound is moist and viable. Hyperpigmentation from previous pressure injury noted in crevices of skin R ischium. Caregiver at bedside and stated pt has Hx of Recurrent pressure injuries to sacrum and R ischium.Hyperpigmentation noted to L ischium. L heel boggy with non-blanchable erythema non-tender when palpated. Non-blanchable erythema with fluctuance at base medial aspect of R heel. (L) 1.5cm x (W)2.3cm Edemae and Foot drop noted to both feet. Eschar with surrounding erythema noted to R 1st metatarsal head. Small amt purulent exudate noted when wound minimally palpated. Small partial thickness ulcers without exudate noted to dorsum of R 2nd,3rd,4th and 5th metatarsals.Wounds are erythematous at base .Periwound metatarsals are pale and shiny. Tx.Plan: Wash skin folds of both breasts and abd folds with soap and water. Apply Light dusting of Antifungal powder every shift. Apply Triad Paste to buttocks both ischial areas, bilat groin and medial / posterior aspects of both upper thighs with each incontinence care. Apply Triad Paste to sacrum.Cover with Optifoam drsg. Change every 3 days and prn. Swab R 1st metatarsal head with Betadine. Cover with Optifoam drsg Daily and prn. Apply Cavilon to both heels .Cover each heel with Optifoam drsg.Change every 7 days and prn. Apply Betadine to dorsals of 2nd,3rd,4th and 5th metatarsals. Bariatric bed with Air fluidized mattress. Reposition at least every 2hours or as tolerated. Off-load heels with pillow. (2) Multiple sclerosis (3) Obstipation Assessment & Plan: abdomen distended KUB noted and okay exam without tenderness decreased bowel sounds cont with diet will follow with exam (4) Urinary tract infection (5) Hypoxemia (6) Tachycardia (7) Pneumonia (8) Obesities, morbid Assessment & Plan: DAILY ESTIMATED NEEDS: Needs based on Pulmonary, obese 78kg adj 20-25 kcals/kg 7168-6060 total kcals 1-1.5 g protein/kg 78-117 g total protein Fluid per MD, on lasix NUTRITION DIAGNOSIS: 1) Decreased sodium and fat intake needs R/T cardiac hx, PNA as evidenced by on diuretics, HTN, BMI >40, pt is @191% [place] Body Weight. 2) Self feeding difficulty r/t MS as evidenced by pt w/ BL UE contractures, requires 1:1 feedings. PO DIET RECOMMENDATIONS: Cardiac, CCHO MED (texture per DIRECTOR CRITICAL CARE) ---- ADDITIONAL RECOMMENDATIONS: 1) [facility]OR CRITICAL CARE eval for appropriate texture (h/o MS w/ contractures, need for 1:1) 2) Wound Care: photos noted, pending MD wang 3) A1C for eval (need for diet change to ccho low w/ 2x prot) 4) Check lytes daily on lasix, replete as needed (Mg 1.6) (9) Encounter for generalized patient complaints John Toledo January 21, 2019 11:22
--- NOTE | 2019-01-21 11:40 | NUR ---
NURSE NOTES: Patient is awake, resting in bed. No acute distress noted. caregiver at bedside. BP 149/79, off nipride drip
[2019-01-21] MEDS: Lisinopril 20mg tab ORAL SCH ×2 (12:26→20:57)
--- NOTE | 2019-01-21 13:09 | NUR ---
CASE MANAGEMENT: REVIEW SI: PNA . HTN T 98.5 HR 87 RR 15 BP 211/126 SAT 98% NC/2L IS: NIPRIDE GTT ROCEPHIN IV Q24HR ICU STATUS DCP: PATIENT IS FROM HOME
--- NOTE | 2019-01-21 13:22 | Cardiology Progress Note ---
Assessment/Plan Assessment/Plan 1. Hypotension, probably multifactorial, possibly volume related versus medication related (resolved) 2. Pneumonia. 3. Multiple sclerosis. 4. Diabetes mellitus. 5. Chronic suprapubic catheter. 6. Decubitus ulcers 7. MS (multiple sclerosis) blood cx neg sofar still urine cx postive off ivf on acie low dose increase dose echo report noted nomral lv fxn tele personally rev. sinus , borderline sinus tachy all torp neg now back on diuretic as cxr showed pvc i was called early this am pt was trandffered to the icu i was adked about bp med as bp sig elelvvated after extra doses of med clinidine adn niopride ordred this am nipride has been taken off and she seem idalia normotensive will need to be onlty on one acei i did give soem clinidine but may not need that meds care home icu care provided over nite for iv nipride . Subjective Cardiovascular: Denies: chest pain, lightheadedness, palpitations Respiratory: Denies: shortness of breath Gastrointestinal/Abdominal: Denies: abdominal pain Genitourinary: Denies: burning Subjective tired Objective Last 24 Hour Vital Signs Date Time Temp Pulse Resp B/P (MAP) Pulse Ox O2 Delivery O2 Flow Rate FiO2 01/21/19 13:00 84 18 107/49 (68) 99 01/21/19 12:30 94 20 159/84 (109) 100 01/21/19 12:30 94 20 159/84 (109) 100 01/21/19 12:26 139/64 01/21/19 12:00 Nasal Cannula 2.0 01/21/19 12:00 98.5 87 15 142/76 (98) 98 01/21/19 12:00 91 01/21/19 11:45 86 18 157/66 (96) 99 01/21/19 11:30 90 19 149/76 (100) 98 01/21/19 11:15 98 18 159/71 (100) 99 01/21/19 11:00 98 18 155/70 (98) 99 01/21/19 10:45 97 16 157/69 (98) 99 01/21/19 10:31 Nasal Cannula 2.0 28 01/21/19 10:31 Nasal Cannula 2.0 28 5/18/19 10:30 82 16 106/7 (40) 100 01/21/19 10:15 81 16 99/50 (66) 99 01/21/19 10:10 81 16 100/49 (66) 99 01/21/19 10:00 82 16 92/47 (62) 99 01/21/19 09:45 84 16 89/45 (60) 100 01/21/19 09:30 89 17 110/53 (72) 99 01/21/19 09:20 90 20 86/42 (57) 96 01/21/19 09:15 97 18 93/52 (66) 96 01/21/19 09:10 102 18 85/41 (56) 97 01/21/19 09:00 106 18 113/51 (71) 97 01/21/19 08:45 107 18 180/80 (113) 97 01/21/19 08:37 186/87 01/21/19 08:30 105 19 186/87 (120) 97 01/21/19 08:15 106 21 187/76 (113) 97 01/21/19 08:00 98.6 96 17 154/73 (100) 97 01/21/19 08:00 Nasal Cannula 2.0 01/21/19 08:00 99 01/21/19 07:45 94 16 124/70 (88) 97 01/21/19 07:30 97 16 124/65 (84) 98 01/21/19 07:15 95 15 120/64 (82) 98 01/21/19 07:11 Nasal Cannula 2.0 28 01/21/19 07:11 Nasal Cannula 2.0 28 01/21/19 07:10 Nasal Cannula 2.0 28 01/21/19 07:10 99 Nasal Cannula 2.0 28 01/21/19 07:00 98 16 139/66 (90) 99 01/21/19 06:45 95 16 160/81 (107) 97 01/21/19 06:30 98 17 178/84 (115) 98 01/21/19 06:15 93 17 157/101 (119) 99 01/21/19 06:00 98 18 138/77 (97) 98 01/21/19 05:45 96 17 114/61 (78) 98 01/21/19 05:30 94 17 125/75 (92) 98 01/21/19 05:15 103 17 117/73 (88) 97 01/21/19 05:00 103 19 113/60 (77) 96 01/21/19 04:45 108 17 138/56 (83) 96 01/21/19 04:30 108 21 137/59 (85) 96 01/21/19 04:15 104 16 164/73 (103) 97 01/21/19 04:08 Nasal Cannula 2.0 01/21/19 04:07 108 01/21/19 04:00 98.3 114 20 129/59 (82) 95 01/21/19 03:45 123 17 202/76 (118) 94 01/21/19 03:35 109 16 98 Nasal Cannula 2.0 28 01/21/19 03:30 108 16 177/82 (113) 98 01/21/19 03:25 109 16 95 Nasal Cannula 2.0 28 01/21/19 03:17 202/94 01/21/19 03:15 111 20 161/72 (101) 96 01/21/19 03:00 104 17 202/94 (130) 96 01/21/19 02:45 107 17 204/103 (136) 96 01/21/19 02:30 113 19 203/124 (150) 95 01/21/19 02:16 112 22 196/130 (152) 98 01/21/19 01:20 99.3 120 28 211/126 (154) 92 01/21/19 00:24 175/107 01/20/19 23:54 98.9 116 28 175/107 (129) 92 01/20/19 23:37 113 01/20/19 21:53 172/100 01/20/19 21:30 172/100 (124) 01/20/19 21:00 Nasal Cannula 2.0 01/20/19 20:51 Nasal Cannula 2.0 28 01/20/19 20:51 94 Nasal Cannula 2.0 28 01/20/19 20:05 175/97 01/20/19 20:00 98.4 104 20 175/97 (123) 93 01/20/19 19:03 98.4 01/20/19 18:40 98.3 01/20/19 17:38 163/80 01/20/19 16:00 106 01/20/19 16:00 98.3 103 18 163/80 (107) 94 01/20/19 14:37 Nasal Cannula 2.0 28 01/20/19 14:37 Nasal Cannula 2.0 28 General Appearance: no apparent distress, alert Neck: supple Cardiovascular: normal rate, regular rhythm Respiratory/Chest: lungs clear Abdomen: normal bowel sounds, non tender, soft Extremities: no swelling Intake and Output 01/20/19 01/21/19 18:59 06:59 Intake Total 690 ml 137.88 ml Output Total 1300 ml 1940 ml Balance -610 ml -1802.12 ml Intake Oral 640 ml 120 ml IV Total 50 ml 17.88 ml Output Urine Total 1300 ml 1940 ml # Bowel Movements 1 2 Krishna Perry MD January 21, 2019 13:22
--- NOTE | 2019-01-21 13:29 | NUR ---
NURSE NOTES: Patient is seen by Dr. Waite. MD updated on pt's condition, VSS. labs ordered and meds changed per MD.
--- NOTE | 2019-01-21 14:28 | Infectious Diseases Prog Note ---
Assessment/Plan Assessment/Plan ASSESSMENT AND PLAN: 1. e.coli uti/pyelonephritis, pneumonia vs chf, fevers, sputum culture - normal althea - rocephin - day # 6 abx - monitor labs and chest x-ray - fevers better - clinically better, more alert 2. Multiple sclerosis. 3. elevated bp - in icu and on tx 4. Suprapubic catheter that is chronic, neurogenic bladder 5. Morbid obesity. 6. Quadriplegia. 7. Hypertension. 8. Hyperlipidemia. 9. Diabetes type 2. 10. Colonic polyps. 11. Anemia. 12. History of colonoscopy. 13. Social history is negative for smoking, alcohol, or drug abuse. 14. Family history is noncontributory. 15. Allergies to sulfa drugs. 16. MAR was noted. 17. Case was discussed with RN. 18. ROBBY care. 19. Wound Skin care protocol. 20. Continue treatment per Dr. Quiroz and consultants. Subjective Constitutional: Denies: fever HEENT: Denies: congestion Respiratory: Denies: shortness of breath Gastrointestinal/Abdominal: Denies: nausea, vomiting, diarrhea Genitourinary: Reports: other - no weber Neurologic: Denies: headache Psychiatric: Denies: depression Skin: Denies: rash Hematologic: Denies: bleeding Musculoskeletal: Denies: pain Allergies: Coded Allergies: SULFA (SULFONAMIDE ANTIBIOTICS) (Verified Allergy, Unknown, 11/22/17) Objective Vital Signs Last 24 Hour Vital Signs Date Time Temp Pulse Resp B/P (MAP) Pulse Ox O2 Delivery O2 Flow Rate FiO2 01/21/19 14:00 82 18 112/52 (72) 100 01/21/19 13:30 84 19 117/59 (78) 99 01/21/19 13:00 84 18 107/49 (68) 99 01/21/19 12:30 94 20 159/84 (109) 100 01/21/19 12:30 94 20 159/84 (109) 100 01/21/19 12:26 139/64 01/21/19 12:00 Nasal Cannula 2.0 01/21/19 12:00 98.5 87 15 142/76 (98) 98 01/21/19 12:00 91 01/21/19 11:45 86 18 157/66 (96) 99 01/21/19 11:30 90 19 149/76 (100) 98 01/21/19 11:15 98 18 159/71 (100) 99 01/21/19 11:00 98 18 155/70 (98) 99 01/21/19 10:45 97 16 157/69 (98) 99 01/21/19 10:31 Nasal Cannula 2.0 28 01/21/19 10:31 Nasal Cannula 2.0 28 01/21/19 10:30 82 16 106/7 (40) 100 01/21/19 10:15 81 16 99/50 (66) 99 01/21/19 10:10 81 16 100/49 (66) 99 01/21/19 10:00 82 16 92/47 (62) 99 01/21/19 09:45 84 16 89/45 (60) 100 01/21/19 09:30 89 17 110/53 (72) 99 01/21/19 09:20 90 20 86/42 (57) 96 01/21/19 09:15 97 18 93/52 (66) 96 01/21/19 09:10 102 18 85/41 (56) 97 01/21/19 09:00 106 18 113/51 (71) 97 01/21/19 08:45 107 18 180/80 (113) 97 01/21/19 08:37 186/87 01/21/19 08:30 105 19 186/87 (120) 97 01/21/19 08:15 106 21 187/76 (113) 97 01/21/19 08:00 98.6 96 17 154/73 (100) 97 01/21/19 08:00 Nasal Cannula 2.0 01/21/19 08:00 99 01/21/19 07:45 94 16 124/70 (88) 97 01/21/19 07:30 97 16 124/65 (84) 98 01/21/19 07:15 95 15 120/64 (82) 98 01/21/19 07:11 Nasal Cannula 2.0 28 01/21/19 07:11 Nasal Cannula 2.0 28 01/21/19 07:10 Nasal Cannula 2.0 28 01/21/19 07:10 99 Nasal Cannula 2.0 28 01/21/19 07:00 98 16 139/66 (90) 99 01/21/19 06:45 95 16 160/81 (107) 97 01/21/19 06:30 98 17 178/84 (115) 98 01/21/19 06:15 93 17 157/101 (119) 99 01/21/19 06:00 98 18 138/77 (97) 98 01/21/19 05:45 96 17 114/61 (78) 98 01/21/19 05:30 94 17 125/75 (92) 98 01/21/19 05:15 103 17 117/73 (88) 97 01/21/19 05:00 103 19 113/60 (77) 96 01/21/19 04:45 108 17 138/56 (83) 96 01/21/19 04:30 108 21 137/59 (85) 96 01/21/19 04:15 104 16 164/73 (103) 97 01/21/19 04:08 Nasal Cannula 2.0 01/21/19 04:07 108 01/21/19 04:00 98.3 114 20 129/59 (82) 95 01/21/19 03:45 123 17 202/76 (118) 94 01/21/19 03:35 109 16 98 Nasal Cannula 2.0 28 01/21/19 03:30 108 16 177/82 (113) 98 01/21/19 03:25 109 16 95 Nasal Cannula 2.0 28 01/21/19 03:17 202/94 01/21/19 03:15 111 20 161/72 (101) 96 01/21/19 03:00 104 17 202/94 (130) 96 01/21/19 02:45 107 17 204/103 (136) 96 01/21/19 02:30 113 19 203/124 (150) 95 01/21/19 02:16 112 22 196/130 (152) 98 01/21/19 01:20 99.3 120 28 211/126 (154) 92 01/21/19 00:24 175/107 01/20/19 23:54 98.9 116 28 175/107 (129) 92 01/20/19 23:37 113 01/20/19 21:53 172/100 01/20/19 21:30 172/100 (124) 01/20/19 21:00 Nasal Cannula 2.0 01/20/19 20:51 Nasal Cannula 2.0 28 01/20/19 20:51 94 Nasal Cannula 2.0 28 01/20/19 20:05 175/97 01/20/19 20:00 98.4 104 20 175/97 (123) 93 01/20/19 19:03 98.4 01/20/19 18:40 98.3 01/20/19 17:38 163/80 01/20/19 16:00 106 01/20/19 16:00 98.3 103 18 163/80 (107) 94 01/20/19 14:37 Nasal Cannula 2.0 28 01/20/19 14:37 Nasal Cannula 2.0 28 Height (Feet): 5 Height (Inches): 7.00 Weight (Pounds): 220 General Appearance: no acute distress HEENT: normocephalic, atraumatic, anicteric, mucous membranes moist Respiratory/Chest: lungs clear, normal breath sounds, no respiratory distress, no accessory muscle use Cardiovascular: normal rate, regular rhythm, no gallop/murmur, no JVD Abdomen: normal bowel sounds, soft, non tender, no organomegaly, non distended Genitourinary: other - + weber Extremities: no cyanosis Skin: no rash Neurologic/Psychiatric: heel seam rubber II-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 Findings: Patchy infiltrates noted on the right upper lobe and possibly left lung base as well. Generalized interstitial and vascular prominence demonstrated although this may be slightly improved. IMPRESSION: Persistent right upper lobe infiltrate and probable infiltrate left lung base. This could be due to pneumonia or asymmetric edema. Improved interstitial edema over one day Chest x-ray - 01/18/19 - Comparison: 01/16/2019 A single view chest radiograph was obtained. Findings: Developing pulmonary vascular congestion demonstrated. The heart is enlarged. Vascularity is more prominent. IMPRESSION: Development of CHF Chest x-ray - 01/19/19 - Procedure: XRAY Chest 1v Indication: Cough Comparison: 01/18/2019 A single view chest radiograph was obtained. Findings: Prominent pulmonary vascularity and heart size are demonstrated. Small pleural effusions are not excluded. IMPRESSION: Pulmonary vascular congestion. No significant change Microbiology Date/Time Source Procedure Growth Status 01/15/19 16:37 Blood Blood Culture - Final NO GROWTH AFTER 5 DAYS Complete 01/17/19 04:00 Sputum Induced Gram Stain - Final Complete 01/17/19 04:00 Sputum Induced Sputum Culture - Final NORMAL UPPER RESPIRATORY ALTHEA PRESENT Complete 01/15/19 16:14 Urine,Clean Catch Urine Culture - Final Escherichia Coli Complete Labs Test 01/19/19 03:15 01/20/19 05:30 White Blood Count 5.3 K/UL (4.8-10.8) 5.4 K/UL (4.8-10.8) Red Blood Count 4.08 M/UL (4.20-5.40) 4.56 M/UL (4.20-5.40) Hemoglobin 11.1 G/DL (12.0-16.0) 12.3 G/DL (12.0-16.0) Hematocrit 34.7 % (37.0-47.0) 38.8 % (37.0-47.0) Mean Corpuscular Volume 85 FL (80-99) 85 FL (80-99) Mean Corpuscular Hemoglobin 27.2 PG (27.0-31.0) 27.0 PG (27.0-31.0) Mean Corpuscular Hemoglobin Concent 32.0 G/DL (32.0-36.0) 31.7 G/DL (32.0-36.0) Red Cell Distribution Width 17.0 % (11.6-14.8) 17.1 % (11.6-14.8) Platelet Count 267 K/UL (150-450) 277 K/UL (150-450) Mean Platelet Volume 8.0 FL (6.5-10.1) 7.3 FL (6.5-10.1) Neutrophils (%) (Auto) 73.1 % (45.0-75.0) 69.4 % (45.0-75.0) Lymphocytes (%) (Auto) 16.3 % (20.0-45.0) 19.4 % (20.0-45.0) Monocytes (%) (Auto) 6.4 % (1.0-10.0) 5.4 % (1.0-10.0) Eosinophils (%) (Auto) 3.4 % (0.0-3.0) 4.3 % (0.0-3.0) Basophils (%) (Auto) 0.7 % (0.0-2.0) 1.5 % (0.0-2.0) Sodium Level 139 MMOL/L (136-145) 140 MMOL/L (136-145) Potassium Level 4.5 MMOL/L (3.5-5.1) 4.1 MMOL/L (3.5-5.1) Chloride Level 103 MMOL/L (98-107) 103 MMOL/L (98-107) Carbon Dioxide Level 31 MMOL/L (21-32) 32 MMOL/L (21-32) Anion Gap 5 mmol/L (5-15) 5 mmol/L (5-15) Blood Urea Nitrogen 11 mg/dL (7-18) 9 mg/dL (7-18) Creatinine 0.6 MG/DL (0.55-1.30) 0.6 MG/DL (0.55-1.30) Estimat Glomerular Filtration Rate mL/min (>60) mL/min (>60) Glucose Level 96 MG/DL (74-106) 124 MG/DL (74-106) Calcium Level 9.0 MG/DL (8.5-10.1) 9.1 MG/DL (8.5-10.1) Total Bilirubin 0.3 MG/DL (0.2-1.0) Aspartate Amino Transf (AST/SGOT) 28 U/L (15-37) Alanine Aminotransferase (ALT/SGPT) 26 U/L (12-78) Alkaline Phosphatase 118 U/L (46-116) Total Protein 7.6 G/DL (6.4-8.2) Albumin 2.1 G/DL (3.4-5.0) Globulin 5.5 g/dL Albumin/Globulin Ratio 0.4 (1.0-2.7) Random Vancomycin Level 15.1 ug/mL Current Medications Medications (Trade) Dose Ordered Sig/Mj Route PRN Reason Start Time Stop Time Status Last Admin Dose Admin Acetaminophen (Tylenol) 650 mg Q4H PRN ORAL Mild Pain/Temp > 100.5 01/21/19 05:00 02/15/19 04:59 01/21/19 04:52 Amlodipine Besylate (Norvasc) 5 mg DAILY ORAL 01/22/19 09:00 02/21/19 08:59 Atorvastatin Calcium (Lipitor) 10 mg BEDTIME ORAL 01/21/19 21:00 02/15/19 20:59 Baclofen (Lioresal) 10 mg THREE TIMES A DAY ORAL 01/21/19 09:00 02/15/19 08:59 01/21/19 12:25 Ceftriaxone Sodium 1 gm/ Dextrose 50 ml @ 100 mls/hr Q24H IVPB 01/21/19 16:00 01/26/19 15:59 Furosemide (Lasix) 20 mg DAILY ORAL 01/21/19 09:00 02/19/19 08:59 01/21/19 08:37 Guaifenesin/ Codeine Phosphate (Robitussin with codeine) 5 ml Q6H PRN ORAL For Cough 01/21/19 02:44 02/16/19 02:43 Hydralazine HCl (Apresoline) 10 mg Q6H PRN IV SBP >170 01/21/19 06:00 02/20/19 00:00 Lisinopril (Prinivil) 20 mg Q12HR ORAL 01/21/19 13:00 02/20/19 12:59 01/21/19 12:26 Metformin HCl (Glucophage) 500 mg TWICE A DAY ORAL 01/21/19 09:00 02/15/19 08:59 01/21/19 08:37 Pantoprazole (Protonix) 40 mg DAILY ORAL 01/21/19 09:00 02/15/19 08:59 01/21/19 08:35 Patient Own Medication (Patient's Own Med) 1 ea QOD SUBQ 01/22/19 09:00 02/17/19 08:59 Polyethylene Glycol (Miralax) 17 gm DAILY ORAL 01/22/19 09:00 02/21/19 08:59 Sodium Nitroprusside 50 mg/Dextrose 250 ml @ 0 mls/hr Q24H IV 01/21/19 03:00 02/20/19 02:59 01/21/19 03:00 Tizanidine HCl (Zanaflex) 4 mg THREE TIMES A DAY ORAL 01/21/19 09:00 02/15/19 08:59 01/21/19 12:25 Trazodone HCl (Desyrel) 100 mg BEDTIME PRN ORAL insomnia 01/21/19 02:35 02/19/19 02:34 Carroll Miller MD January 21, 2019 14:28
[2019-01-21 14:42] LABS: BASOPHILS % (AUTO) 1.9 % (0.0-2.0); EOSINOPHILS % (AUTO) 2.2 % (0.0-3.0); HEMATOCRIT 35.5 % (37.0-47.0); HEMOGLOBIN 11.7 G/DL (12.0-16.0); LYMPHOCYTES % (AUTO) 23.5 % (20.0-45.0); MEAN CORPUSCULAR VOLUME 83 FL (80-99); MONOCYTES % (AUTO) 6.6 % (1.0-10.0); NEUTROPHILS % (AUTO) 65.7 % (45.0-75.0); PLATELET COUNT 300 K/UL (150-450); RED BLOOD COUNT 4.25 M/UL (4.20-5.40); RED CELL DISTRIBUTION WIDTH 16.6 % (11.6-14.8); WHITE BLOOD COUNT 5.5 K/UL (4.8-10.8)
[2019-01-21 15:00] LABS: ALANINE AMINOTRANSFERASE 17 U/L (12-78); ALBUMIN 2.2 G/DL (3.4-5.0); ALBUMIN/GLOBULIN RATIO 0.5 (1.0-2.7); ALKALINE PHOSPHATASE 104 U/L (46-116); ANION GAP 4 mmol/L (5-15); ASPARTATE AMINO TRANSFERASE 16 U/L (15-37); BILIRUBIN,TOTAL 0.2 MG/DL (0.2-1.0); BLOOD UREA NITROGEN 9 mg/dL (7-18); CALCIUM 9.1 MG/DL (8.5-10.1); CARBON DIOXIDE 35 MMOL/L (21-32); CHLORIDE 104 MMOL/L (98-107); CREATININE 0.6 MG/DL (0.55-1.30); POTASSIUM 4.4 MMOL/L (3.5-5.1); SODIUM 143 MMOL/L (136-145)
--- NOTE | 2019-01-21 15:39 | NUR ---
NURSE NOTES: CALLED AND LEFT MESSAGE FOR MD NOLEN, REGARDING PT REQUEST FOR ADDITIONAL PAIN MEDICATION. PO.TYLENOL 650MG ADMINISTERED PER EMAR FOR PAIN 7/10 IN ABDOMEN. AWAITING CALL BACK.
--- NOTE | 2019-01-21 16:00 | NUR ---
NURSE NOTES: Patient was turned and repositioned. Patient had large normal BMx1. Patient kept clean and dry.
[2019-01-21] MEDS: cefTRIAXone 1 GM in D5W 50 ML IVPB SCH (16:20)
--- NOTE | 2019-01-21 18:00 | NUR ---
NURSE NOTES: Patient is on 2L O2 via NC, O2 sat 98%. No acute distress noted. Patient kept clean and dry. Patient had dinner and watching TV in bed. VSS.
--- NOTE | 2019-01-21 19:45 | NUR ---
NURSE NOTES: PATIENT ALERT, ORIENTED, DENIED PAIN OR DISTRESS AT THIS TIME. RESPIRATION REGULAR, O2 SATURATION 97% ON O2 2LPM VIA NC, ABDOMEN SOFT, LARGE, NO BOWEL MOVEMENT STATUS, SUPRAPUBIC CATHETER INTACT AND PATENT , YELLOW URINE DRAINING GRAVITY, PERIPHERAL LINE TO RIGHT HAND 20G AND LEFT HAND 24G, INTACT AND PATENT, PATIENT REFUSED SCD'S STATUS, ON BIG BOY BED, PROVIDED CALL LIGHT WITHIN REACH, MADE LOWER BED POSITION, WILL CONTINUE TO MONITOR.
[2019-01-21] MEDS ORDERED: Ramipril 2.5mg cap ORAL SCH (20:00)
--- NOTE | 2019-01-21 20:47 | Pulmonolgy Critical Care Note ---
Critical Care - Asmt/Plan Assessment/Plan: 1. Pneumonia 2. UTI with chronic suprapubic catheter, e coli 3. Multiple sclerosis. 4. Sinus tachycardia 5. Diabetes. 6. Hyponatremia. 7. Neurogenic bladder. 8. Hypertension with urgency 9. Hyperlipidemia. 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 Discussed with: nurses Critical Care - Objective Last 24 Hour Vital Signs Date Time Temp Pulse Resp B/P (MAP) Pulse Ox O2 Delivery O2 Flow Rate FiO2 01/21/19 20:21 Nasal Cannula 2.0 28 01/21/19 20:20 96 Nasal Cannula 2.0 28 01/21/19 20:00 99 01/21/19 19:00 81 16 124/59 (80) 97 01/21/19 18:00 90 19 146/63 (90) 98 01/21/19 17:00 98.3 79 16 154/71 (98) 99 01/21/19 16:00 81 01/21/19 16:00 Nasal Cannula 2.0 01/21/19 16:00 84 19 152/73 (99) 98 01/21/19 15:00 93 19 159/77 (104) 99 01/21/19 14:00 82 18 112/52 (72) 100 01/21/19 13:30 84 19 117/59 (78) 99 01/21/19 13:00 84 18 107/49 (68) 99 01/21/19 12:30 94 20 159/84 (109) 100 01/21/19 12:30 94 20 159/84 (109) 100 01/21/19 12:26 139/64 01/21/19 12:00 Nasal Cannula 2.0 01/21/19 12:00 98.5 87 15 142/76 (98) 98 01/21/19 12:00 91 01/21/19 11:45 86 18 157/66 (96) 99 01/21/19 11:30 90 19 149/76 (100) 98 01/21/19 11:15 98 18 159/71 (100) 99 01/21/19 11:00 98 18 155/70 (98) 99 01/21/19 10:45 97 16 157/69 (98) 99 01/21/19 10:31 Nasal Cannula 2.0 28 01/21/19 10:31 Nasal Cannula 2.0 28 01/21/19 10:30 82 16 106/7 (40) 100 01/21/19 10:15 81 16 99/50 (66) 99 01/21/19 10:10 81 16 100/49 (66) 99 01/21/19 10:00 82 16 92/47 (62) 99 01/21/19 09:45 84 16 89/45 (60) 100 01/21/19 09:30 89 17 110/53 (72) 99 01/21/19 09:20 90 20 86/42 (57) 96 01/21/19 09:15 97 18 93/52 (66) 96 01/21/19 09:10 102 18 85/41 (56) 97 01/21/19 09:00 106 18 113/51 (71) 97 01/21/19 08:45 107 18 180/80 (113) 97 01/21/19 08:37 186/87 01/21/19 08:30 105 19 186/87 (120) 97 01/21/19 08:15 106 21 187/76 (113) 97 01/21/19 08:00 98.6 96 17 154/73 (100) 97 01/21/19 08:00 Nasal Cannula 2.0 01/21/19 08:00 99 01/21/19 07:45 94 16 124/70 (88) 97 01/21/19 07:30 97 16 124/65 (84) 98 01/21/19 07:15 95 15 120/64 (82) 98 01/21/19 07:11 Nasal Cannula 2.0 28 01/21/19 07:11 Nasal Cannula 2.0 28 01/21/19 07:10 Nasal Cannula 2.0 28 01/21/19 07:10 99 Nasal Cannula 2.0 28 01/21/19 07:00 98 16 139/66 (90) 99 01/21/19 06:45 95 16 160/81 (107) 97 01/21/19 06:30 98 17 178/84 (115) 98 01/21/19 06:15 93 17 157/101 (119) 99 01/21/19 06:00 98 18 138/77 (97) 98 01/21/19 05:45 96 17 114/61 (78) 98 01/21/19 05:30 94 17 125/75 (92) 98 01/21/19 05:15 103 17 117/73 (88) 97 01/21/19 05:00 103 19 113/60 (77) 96 01/21/19 04:45 108 17 138/56 (83) 96 01/21/19 04:30 108 21 137/59 (85) 96 01/21/19 04:15 104 16 164/73 (103) 97 01/21/19 04:08 Nasal Cannula 2.0 01/21/19 04:07 108 01/21/19 04:00 98.3 114 20 129/59 (82) 95 01/21/19 03:45 123 17 202/76 (118) 94 01/21/19 03:35 109 16 98 Nasal Cannula 2.0 28 01/21/19 03:30 108 16 177/82 (113) 98 01/21/19 03:25 109 16 95 Nasal Cannula 2.0 28 01/21/19 03:17 202/94 01/21/19 03:15 111 20 161/72 (101) 96 01/21/19 03:00 104 17 202/94 (130) 96 01/21/19 02:45 107 17 204/103 (136) 96 01/21/19 02:30 113 19 203/124 (150) 95 01/21/19 02:16 112 22 196/130 (152) 98 01/21/19 01:20 99.3 120 28 211/126 (154) 92 01/21/19 00:24 175/107 01/20/19 23:54 98.9 116 28 175/107 (129) 92 01/20/19 23:37 113 01/20/19 21:53 172/100 01/20/19 21:30 172/100 (124) 01/20/19 21:00 Nasal Cannula 2.0 01/20/19 20:51 Nasal Cannula 2.0 28 01/20/19 20:51 94 Nasal Cannula 2.0 28 Status: awake Condition: improving Lungs: clear Heart: HR/BP stable Abdomen: soft, non-tender Extremities: edema Accucheck: 99 Critical Care - Subjective ROS Limited/Unobtainable: No Condition: improving FI02: 28 Sputum Amount: Small I&O: Intake and Output 01/20/19 01/21/19 19:00 07:00 Intake Total 690 ml 146.82 ml Output Total 1300 ml 1940 ml Balance -610 ml -1793.18 ml Intake Oral 640 ml 120 ml IV Total 50 ml 26.82 ml Output Urine Total 1300 ml 1940 ml # Bowel Movements 1 2 Subjective: difficilty to control bp over night, transferred ot ICu for nipride drip turned off this am bp stable awake aand alert no distress tolerating TF no wound positive uop Labs: Current Medications Medications (Trade) Dose Ordered Sig/Mj Route PRN Reason Start Time Stop Time Status Last Admin Dose Admin Acetaminophen (Tylenol) 650 mg Q4H PRN ORAL Mild Pain/Temp > 100.5 01/21/19 05:00 02/15/19 04:59 01/21/19 20:59 Amlodipine Besylate (Norvasc) 5 mg DAILY ORAL 01/22/19 09:00 02/21/19 08:59 Atorvastatin Calcium (Lipitor) 10 mg BEDTIME ORAL 01/21/19 21:00 02/15/19 20:59 01/21/19 20:57 Baclofen (Lioresal) 10 mg THREE TIMES A DAY ORAL 01/21/19 09:00 02/15/19 08:59 01/21/19 17:11 Ceftriaxone Sodium 1 gm/ Dextrose 50 ml @ 100 mls/hr Q24H IVPB 01/21/19 16:00 01/26/19 15:59 01/21/19 16:20 Furosemide (Lasix) 20 mg DAILY ORAL 01/21/19 09:00 02/19/19 08:59 01/21/19 08:37 Guaifenesin/ Codeine Phosphate (Robitussin with codeine) 5 ml Q6H PRN ORAL For Cough 01/21/19 02:44 02/16/19 02:43 Hydralazine HCl (Apresoline) 10 mg Q6H PRN IV SBP >170 01/21/19 06:00 02/20/19 00:00 Lisinopril (Prinivil) 20 mg Q12HR ORAL 01/21/19 13:00 6/17/19 12:59 01/21/19 20:57 Metformin HCl (Glucophage) 500 mg TWICE A DAY ORAL 01/21/19 09:00 02/15/19 08:59 01/21/19 17:11 Pantoprazole (Protonix) 40 mg DAILY ORAL 01/21/19 09:00 02/15/19 08:59 01/21/19 08:35 Patient Own Medication (Patient's Own Med) 1 ea QOD SUBQ 01/22/19 09:00 02/17/19 08:59 Polyethylene Glycol (Miralax) 17 gm DAILY ORAL 01/22/19 09:00 02/21/19 08:59 Sodium Nitroprusside 50 mg/Dextrose 250 ml @ 0 mls/hr Q24H IV 01/21/19 03:00 02/20/19 02:59 01/21/19 03:00 Tizanidine HCl (Zanaflex) 4 mg THREE TIMES A DAY ORAL 01/21/19 09:00 02/15/19 08:59 01/21/19 17:10 Trazodone HCl (Desyrel) 100 mg BEDTIME PRN ORAL insomnia 01/21/19 02:35 02/19/19 02:34 01/21/19 20:57 Laboratory Tests Test 01/21/19 14:20 White Blood Count 5.5 K/UL (4.8-10.8) Red Blood Count 4.25 M/UL (4.20-5.40) Hemoglobin 11.7 G/DL (12.0-16.0) L Hematocrit 35.5 % (37.0-47.0) L Mean Corpuscular Volume 83 FL (80-99) Mean Corpuscular Hemoglobin 27.4 PG (27.0-31.0) Mean Corpuscular Hemoglobin Concent 32.9 G/DL (32.0-36.0) Red Cell Distribution Width 16.6 % (11.6-14.8) H Platelet Count 300 K/UL (150-450) Mean Platelet Volume 7.2 FL (6.5-10.1) Neutrophils (%) (Auto) 65.7 % (45.0-75.0) Lymphocytes (%) (Auto) 23.5 % (20.0-45.0) Monocytes (%) (Auto) 6.6 % (1.0-10.0) Eosinophils (%) (Auto) 2.2 % (0.0-3.0) Basophils (%) (Auto) 1.9 % (0.0-2.0) Sodium Level 143 MMOL/L (136-145) Potassium Level 4.4 MMOL/L (3.5-5.1) Chloride Level 104 MMOL/L (98-107) Carbon Dioxide Level 35 MMOL/L (21-32) H Anion Gap 4 mmol/L (5-15) L Blood Urea Nitrogen 9 mg/dL (7-18) Creatinine 0.6 MG/DL (0.55-1.30) Estimat Glomerular Filtration Rate mL/min (>60) Glucose Level 136 MG/DL (74-106) H Calcium Level 9.1 MG/DL (8.5-10.1) Total Bilirubin 0.2 MG/DL (0.2-1.0) Aspartate Amino Transf (AST/SGOT) 16 U/L (15-37) Alanine Aminotransferase (ALT/SGPT) 17 U/L (12-78) Alkaline Phosphatase 104 U/L (46-116) Total Protein 6.6 G/DL (6.4-8.2) Albumin 2.2 G/DL (3.4-5.0) L Globulin 4.4 g/dL Albumin/Globulin Ratio 0.5 (1.0-2.7) L Kenyetta Dill DO January 21, 2019 20:47
[2019-01-21] MEDS: TraZODone 100mg tab ORAL PRN (20:57)
--- NOTE | 2019-01-21 20:59 | NUR ---
NURSE NOTES: GIVEN TYLENOL 650MG BY PO ORDERED FOR ABDOMINAL PAIN, WILL CONTINUE TO MONITOR.
[2019-01-21] MEDS ORDERED: TraZODone 100mg tab ORAL PRN (21:00)
--- NOTE | 2019-01-21 21:30 | NUR ---
NURSE NOTES: SEEN THE PATIENT BY DR. HOLLAND.
--- NOTE | 2019-01-21 21:31 | NUR ---
NURSE NOTES: PATIENT WANTED BACLOFEN FOR PAIN THAT DR. HOLLAND WAS AWARE, NO NEW ORDER STATUS.
--- NOTE | 2019-01-21 22:22 | NUR ---
NURSE NOTES: PATIENT ASLEEP STATUS, MADE CALM ENVIRONMENT, WILL CONTINUE TO MONITOR.
[2019-01-22] VITALS (52 sets, daily range): BP systolic 98–225; BP diastolic 53–110
--- NOTE | 2019-01-22 | NUR ---
NURSE NOTES: REPOSITIONED AND ORAL CARE WAS DONE.
--- NOTE | 2019-01-22 01:21 | NUR ---
NURSE NOTES: GIVEN APRESOLINE 10MG IVP PRN ORDERED FOR SBP OVER 170MMHG, WILL CONTINUE TO MONITOR.
--- NOTE | 2019-01-22 01:22 | NUR ---
NURSE NOTES: GIVEN TYLENOL 650MG BY PO PRN FOR PAIN, WILL CONTINUE TO MONITOR.
--- NOTE | 2019-01-22 02:04 | NUR ---
NURSE NOTES: STARTED NIPRIDE DRIP 0.3MCG/KG/MIN ORDERED DUE TO SBP OVER 200MMHG, WILL CONTINUE TO MONITOR.
--- NOTE | 2019-01-22 02:45 | NUR ---
NURSE NOTES: PATIENT WANTED REPOSITION DUE TO UNCOMFORTABLE THAT REPOSITIONED, WILL CONTINUE TO MONITOR.
[2019-01-22] MEDS: guaiFENesin w/Codeine 5ml Liq ud ORAL PRN ×3 (03:30→21:28)
--- NOTE | 2019-01-22 03:30 | NUR ---
NURSE NOTES: PATIENT HAD COUGH WITH NAUSEA STATUS THAT GIVEN ROBITUSSIN W/ CODEINE 5ML BY PO, MADE HOB OVER 30 DEGREE, WILL CONTINUE TO MONITOR.
--- NOTE | 2019-01-22 03:39 | NUR ---
NURSE NOTES: PATIENT COMPLAINED CHEST DISCOMFORT AND MID CHEST PAIN 04/[address] FORD, LEFT MESSAGE.
--- NOTE | 2019-01-22 03:50 | NUR ---
NURSE NOTES: PATIENT ASLEEP STATUS, HR 120'S ST NOTED.
--- NOTE | 2019-01-22 04:30 | NUR ---
NURSE NOTES: PATIENT COMPLAINED SLIGHT ABDOMINAL PAIN AND HOT, WANTED ICE PACK TO ABDOMEN AND NECK THAT APPLIED ICE PACK, WILL CONTINUE TO MONITOR.
--- NOTE | 2019-01-22 05:30 | NUR ---
NURSE NOTES: SLEEPING STATUS.
[2019-01-22 05:57] LABS: BASOPHILS % (AUTO) 0.9 % (0.0-2.0); EOSINOPHILS % (AUTO) 0.9 % (0.0-3.0); HEMATOCRIT 36.7 % (37.0-47.0); HEMOGLOBIN 11.8 G/DL (12.0-16.0); LYMPHOCYTES % (AUTO) 11.5 % (20.0-45.0); MEAN CORPUSCULAR VOLUME 84 FL (80-99); MONOCYTES % (AUTO) 4.2 % (1.0-10.0); NEUTROPHILS % (AUTO) 82.6 % (45.0-75.0); PLATELET COUNT 332 K/UL (150-450); RED BLOOD COUNT 4.38 M/UL (4.20-5.40); RED CELL DISTRIBUTION WIDTH 16.4 % (11.6-14.8); WHITE BLOOD COUNT 8.2 K/UL (4.8-10.8)
[2019-01-22 06:21] LABS: ALANINE AMINOTRANSFERASE 15 U/L (12-78); ALBUMIN 2.3 G/DL (3.4-5.0); ALBUMIN/GLOBULIN RATIO 0.4 (1.0-2.7); ALKALINE PHOSPHATASE 108 U/L (46-116); ANION GAP 6 mmol/L (5-15); ASPARTATE AMINO TRANSFERASE 16 U/L (15-37); BILIRUBIN,TOTAL 0.3 MG/DL (0.2-1.0); BLOOD UREA NITROGEN 12 mg/dL (7-18); CALCIUM 9.1 MG/DL (8.5-10.1); CARBON DIOXIDE 32 MMOL/L (21-32); CHLORIDE 101 MMOL/L (98-107); CREATININE 0.6 MG/DL (0.55-1.30); SODIUM 139 MMOL/L (136-145)
[2019-01-22 06:25] LABS: ANION GAP 6 mmol/L (5-15); BLOOD UREA NITROGEN 12 mg/dL (7-18); CALCIUM 9.1 MG/DL (8.5-10.1); CARBON DIOXIDE 32 MMOL/L (21-32); CHLORIDE 101 MMOL/L (98-107); CREATININE 0.6 MG/DL (0.55-1.30); POTASSIUM 3.9 MMOL/L (3.5-5.1); SODIUM 139 MMOL/L (136-145)
--- NOTE | 2019-01-22 06:40 | NUR ---
NURSE NOTES: MORNING CARE WAS DONE, SOFT BOWEL MOVEMENT STATUS.
--- NOTE | 2019-01-22 07:16 | NUR ---
HAND-OFF: Report given to SHEMAR OLVERA.
--- NOTE | 2019-01-22 07:40 | NUR ---
NURSE NOTES: Received the patient from SHEMAR Teresa. Patient is awake, alert and orientedx4. On 2L O2 via NC, O2 sat 100%. No acute distress noted. ST noted on the monitor. Right hand 20G and left hand 24G intact, running nipride gtt at 0.3mc/kg/min, BP 123/76. Suprapubic cath intact and patent, draining urine by gravity. wound dressings intact. Bed in lowest position, locked, side rails upx3. Call light within reach. Will continue to monitor. Addendum: 01/22/19 at 0753 by MAY TOVAR RN patient refused to change BP cuff to arm due to pain, risks and benefits explained. patient verbalized understanding.
[2019-01-22] MEDS: Lisinopril 20mg tab ORAL SCH ×2 (08:28→21:17)
[2019-01-22] MEDS: BETASERON SUBQ SCH (08:29)
[2019-01-22] MEDS: metFORMIN 500mg tab ORAL SCH ×2 (08:29→17:02)
[2019-01-22] MEDS: Miralax 17gm pkt ORAL SCH (09:00)
--- NOTE | 2019-01-22 09:30 | NUR ---
NURSE NOTES: Patient resting in bed comfortably. No acute distress noted. Patient on Nipride drip at 0.3mcg/kg/min.
--- NOTE | 2019-01-22 11:20 | NUR ---
NURSE NOTES: Robitussin w/ codeine given for cough.
--- NOTE | 2019-01-22 11:43 | Cardiology Progress Note ---
Assessment/Plan Assessment/Plan 1. Hypotension, probably multifactorial, possibly volume related versus medication related (resolved) 2. Pneumonia. 3. Multiple sclerosis. 4. Diabetes mellitus. 5. Chronic suprapubic catheter. 6. Decubitus ulcers 7. MS (multiple sclerosis) blood cx neg sofar still urine cx postive off ivf on acie low dose increase dose echo report noted nomral lv fxn tele personally rev. sinus , borderline sinus tachy now back on diuretic as cxr showed pvc bp reportedly went back up and now on low dose nipride not sure if leg bp reading are accurate will do duplex of arms tomorrow will resume clonidine Subjective Cardiovascular: Denies: chest pain, lightheadedness Respiratory: Denies: shortness of breath Gastrointestinal/Abdominal: Reports: abdominal pain Subjective tired Objective Last 24 Hour Vital Signs Date Time Temp Pulse Resp B/P (MAP) Pulse Ox O2 Delivery O2 Flow Rate FiO2 01/22/19 11:00 104 18 153/69 (97) 100 01/22/19 10:45 98 18 142/71 (94) 100 01/22/19 10:30 103 19 126/72 (90) 99 01/22/19 10:15 104 16 132/64 (86) 100 01/22/19 10:00 103 20 140/70 (93) 97 01/22/19 09:45 104 20 128/69 (88) 98 01/22/19 09:30 99 19 135/73 (93) 94 01/22/19 09:15 109 20 126/59 (81) 94 01/22/19 09:00 112 20 151/72 (98) 96 01/22/19 08:45 112 20 133/62 (85) 95 01/22/19 08:30 114 15 168/79 (108) 99 01/22/19 08:29 112 169/82 01/22/19 08:28 169/82 01/22/19 08:15 110 17 169/82 (111) 100 01/22/19 08:00 114 01/22/19 08:00 Room Air 01/22/19 08:00 98.2 114 19 161/74 (103) 100 01/22/19 07:45 109 19 156/110 (125) 100 01/22/19 07:30 107 18 123/76 (92) 100 01/22/19 07:15 112 17 145/78 (100) 100 01/22/19 07:00 109 22 145/78 (100) 99 01/22/19 06:00 112 22 126/67 (86) 100 01/22/19 05:00 116 21 131/63 (85) 97 01/22/19 04:00 98.6 125 21 146/71 (96) 94 01/22/19 04:00 Nasal Cannula 2.0 01/22/19 03:34 125 01/22/19 03:00 127 23 162/73 (102) 93 01/22/19 02:00 128 24 210/77 (121) 94 01/22/19 01:21 207/95 01/22/19 01:00 103 21 207/95 (132) 96 01/22/19 00:00 113 01/22/19 00:00 97.9 92 18 166/79 (108) 94 01/22/19 00:00 Nasal Cannula 2.0 01/21/19 23:10 113 01/21/19 23:00 104 18 166/82 (110) 94 01/21/19 22:00 92 18 159/65 (96) 98 01/21/19 21:30 98 20 164/66 (98) 96 01/21/19 21:00 98 21 172/102 (125) 96 01/21/19 20:57 168/89 01/21/19 20:21 Nasal Cannula 2.0 28 01/21/19 20:20 96 Nasal Cannula 2.0 28 01/21/19 20:00 97.9 96 20 171/72 (105) 97 01/21/19 20:00 Nasal Cannula 2.0 01/21/19 20:00 99 01/21/19 19:28 99 01/21/19 19:00 81 16 124/59 (80) 97 01/21/19 18:00 90 19 146/63 (90) 98 01/21/19 17:00 98.3 79 16 154/71 (98) 99 01/21/19 16:00 81 01/21/19 16:00 Nasal Cannula 2.0 01/21/19 16:00 84 19 152/73 (99) 98 01/21/19 15:00 93 19 159/77 (104) 99 01/21/19 14:00 82 18 112/52 (72) 100 01/21/19 13:30 84 19 117/59 (78) 99 01/21/19 13:00 84 18 107/49 (68) 99 01/21/19 12:30 94 20 159/84 (109) 100 01/21/19 12:30 94 20 159/84 (109) 100 01/21/19 12:26 139/64 01/21/19 12:00 Nasal Cannula 2.0 01/21/19 12:00 98.5 87 15 142/76 (98) 98 01/21/19 12:00 91 01/21/19 11:45 86 18 157/66 (96) 99 General Appearance: no apparent distress, alert Neck: supple Cardiovascular: normal rate Respiratory/Chest: lungs clear Abdomen: normal bowel sounds, non tender, soft Extremities: no swelling Intake and Output 01/21/19 01/22/19 19:00 07:00 Intake Total 726.82 ml 462.2 ml Output Total 680 ml 770 ml Balance 46.82 ml -307.8 ml Intake Oral 650 ml 390 ml IV Total 76.82 ml 72.2 ml Output Urine Total 680 ml 770 ml # Bowel Movements 2 3 Laboratory Tests Test 01/21/19 14:20 01/22/19 05:20 White Blood Count 5.5 K/UL (4.8-10.8) 8.2 K/UL (4.8-10.8) Red Blood Count 4.25 M/UL (4.20-5.40) 4.38 M/UL (4.20-5.40) Hemoglobin 11.7 G/DL (12.0-16.0) L 11.8 G/DL (12.0-16.0) L Hematocrit 35.5 % (37.0-47.0) L 36.7 % (37.0-47.0) L Mean Corpuscular Volume 83 FL (80-99) 84 FL (80-99) Mean Corpuscular Hemoglobin 27.4 PG (27.0-31.0) 27.0 PG (27.0-31.0) Mean Corpuscular Hemoglobin Concent 32.9 G/DL (32.0-36.0) 32.3 G/DL (32.0-36.0) Red Cell Distribution Width 16.6 % (11.6-14.8) H 16.4 % (11.6-14.8) H Platelet Count 300 K/UL (150-450) 332 K/UL (150-450) Mean Platelet Volume 7.2 FL (6.5-10.1) 7.0 FL (6.5-10.1) Neutrophils (%) (Auto) 65.7 % (45.0-75.0) 82.6 % (45.0-75.0) H Lymphocytes (%) (Auto) 23.5 % (20.0-45.0) 11.5 % (20.0-45.0) L Monocytes (%) (Auto) 6.6 % (1.0-10.0) 4.2 % (1.0-10.0) Eosinophils (%) (Auto) 2.2 % (0.0-3.0) 0.9 % (0.0-3.0) Basophils (%) (Auto) 1.9 % (0.0-2.0) 0.9 % (0.0-2.0) Sodium Level 143 MMOL/L (136-145) 139 MMOL/L (136-145) Potassium Level 4.4 MMOL/L (3.5-5.1) 3.9 MMOL/L (3.5-5.1) Chloride Level 104 MMOL/L (98-107) 101 MMOL/L (98-107) Carbon Dioxide Level 35 MMOL/L (21-32) H 32 MMOL/L (21-32) Anion Gap 4 mmol/L (5-15) L 6 mmol/L (5-15) Blood Urea Nitrogen 9 mg/dL (7-18) 12 mg/dL (7-18) Creatinine 0.6 MG/DL (0.55-1.30) 0.6 MG/DL (0.55-1.30) Estimat Glomerular Filtration Rate mL/min (>60) mL/min (>60) Glucose Level 136 MG/DL (74-106) H 138 MG/DL (74-106) H Calcium Level 9.1 MG/DL (8.5-10.1) 9.1 MG/DL (8.5-10.1) Total Bilirubin 0.2 MG/DL (0.2-1.0) 0.3 MG/DL (0.2-1.0) Aspartate Amino Transf (AST/SGOT) 16 U/L (15-37) 16 U/L (15-37) Alanine Aminotransferase (ALT/SGPT) 17 U/L (12-78) 15 U/L (12-78) Alkaline Phosphatase 104 U/L (46-116) 108 U/L (46-116) Total Protein 6.6 G/DL (6.4-8.2) 7.5 G/DL (6.4-8.2) Albumin 2.2 G/DL (3.4-5.0) L 2.3 G/DL (3.4-5.0) L Globulin 4.4 g/dL 5.2 g/dL Albumin/Globulin Ratio 0.5 (1.0-2.7) L 0.4 (1.0-2.7) L Prothrombin Time 10.5 SEC (9.30-11.50) Prothromb Time International Ratio 1.0 (0.9-1.1) Activated Partial Thromboplast Time 27 SEC (23-33) Troponin I 0.095 ng/mL (0.000-0.056) Pro-B-Type Natriuretic Peptide 1257 pg/mL (0-125) H Krishna Perry MD January 22, 2019 11:43
--- NOTE | 2019-01-22 12:00 | NUR ---
NURSE NOTES: Patient was seen by Dr. Perry. MD made aware that pt refusing BP check on arms due to discomfort/pain. Per MD, rechecked BP on right calf, 141/71, and on right arm, 132/75. Okay to check on calf until pt off nipride drip and BP stable and doesn't require close monitoring.
--- NOTE | 2019-01-22 13:30 | NUR ---
NURSE NOTES: Mahendraride gtt was held for BP 101/53. Patient having lunch in bed. No acute distress noted.
--- NOTE | 2019-01-22 15:30 | NUR ---
NURSE NOTES: Patient noted with BP 195/92 right calf, rechecked BP 225/100 right calf. Checked BP on right arm 133/71. Nipride drip was not started. will continue to monitor.
[2019-01-22] MEDS ORDERED: D5W 275ml ONE (15:54)
--- NOTE | 2019-01-22 16:53 | NUR ---
CASE MANAGEMENT: REVIEW SI: PNA . HTN T 98.2 HR 128 RR 24 BP 207/95 SAT 94% NC/2L TROPONIN I 0.095 IS: NIPRIDE GTT ROCEPHIN IV Q24HR NORVASC PO QD CEFTRIAXONE IV Q24HR LASIX PO QD HYDRALAZINE IV PRN ICU STATUS DCP: PATIENT IS FROM HOME
[2019-01-22] MEDS: cefTRIAXone 1 GM in D5W 50 ML IVPB SCH (17:02)
--- NOTE | 2019-01-22 17:26 | Surgery Progress Note ---
Surgery Progress Note Subjective Additional Comments states she was uncomfortable last night but improved today. feels much better no n/v/f/c. in ICU but stable. labs improved. exam unchanged. Objective Last 24 Hour Vital Signs Date Time Temp Pulse Resp B/P (MAP) Pulse Ox O2 Delivery O2 Flow Rate FiO2 01/22/19 17:03 102 17 129/65 (86) 100 01/22/19 16:00 98.4 92 20 147/81 (103) 99 01/22/19 15:30 102 18 133/71 (91) 96 01/22/19 15:25 96 22 225/100 (141) 99 01/22/19 15:15 90 18 195/92 (126) 99 01/22/19 15:00 95 17 171/87 (115) 99 01/22/19 14:45 92 19 148/76 (100) 99 01/22/19 14:30 88 17 127/62 (83) 100 01/22/19 14:15 90 16 112/62 (79) 100 01/22/19 14:00 96 20 121/59 (79) 100 01/22/19 13:45 90 17 98/53 (68) 100 01/22/19 13:30 103 17 101/53 (69) 99 01/22/19 13:15 99 19 166/83 (110) 100 01/22/19 13:06 137/68 01/22/19 13:00 94 18 137/68 (91) 100 01/22/19 12:45 100 17 131/66 (87) 97 01/22/19 12:30 92 19 132/75 (94) 100 01/22/19 12:15 91 18 122/68 (86) 100 01/22/19 12:00 Nasal Cannula 2.0 01/22/19 12:00 100 01/22/19 12:00 98.2 97 19 141/71 (94) 100 01/22/19 11:45 99 22 145/79 (101) 100 01/22/19 11:30 102 22 135/92 (106) 85 01/22/19 11:15 103 22 141/71 (94) 93 01/22/19 11:00 104 18 153/69 (97) 100 01/22/19 10:45 98 18 142/71 (94) 100 01/22/19 10:30 103 19 126/72 (90) 99 01/22/19 10:15 104 16 132/64 (86) 100 01/22/19 10:00 103 20 140/70 (93) 97 01/22/19 09:45 104 20 128/69 (88) 98 01/22/19 09:30 99 19 135/73 (93) 94 01/22/19 09:15 109 20 126/59 (81) 94 01/22/19 09:00 112 20 151/72 (98) 96 01/22/19 08:45 112 20 133/62 (85) 95 01/22/19 08:30 114 15 168/79 (108) 99 01/22/19 08:29 112 169/82 01/22/19 08:28 169/82 01/22/19 08:15 110 17 169/82 (111) 100 01/22/19 08:00 114 01/22/19 08:00 Room Air 01/22/19 08:00 98.2 114 19 161/74 (103) 100 01/22/19 07:45 109 19 156/110 (125) 100 01/22/19 07:30 107 18 123/76 (92) 100 01/22/19 07:15 112 17 145/78 (100) 100 01/22/19 07:00 109 22 145/78 (100) 99 01/22/19 06:00 112 22 126/67 (86) 100 01/22/19 05:00 116 21 131/63 (85) 97 01/22/19 04:00 98.6 125 21 146/71 (96) 94 01/22/19 04:00 Nasal Cannula 2.0 01/22/19 03:34 125 01/22/19 03:00 127 23 162/73 (102) 93 01/22/19 02:00 128 24 210/77 (121) 94 01/22/19 01:21 207/95 01/22/19 01:00 103 21 207/95 (132) 96 01/22/19 00:00 113 01/22/19 00:00 97.9 92 18 166/79 (108) 94 01/22/19 00:00 Nasal Cannula 2.0 01/21/19 23:10 113 01/21/19 23:00 104 18 166/82 (110) 94 01/21/19 22:00 92 18 159/65 (96) 98 01/21/19 21:30 98 20 164/66 (98) 96 01/21/19 21:00 98 21 172/102 (125) 96 01/21/19 20:57 168/89 01/21/19 20:21 Nasal Cannula 2.0 28 01/21/19 20:20 96 Nasal Cannula 2.0 28 01/21/19 20:00 97.9 96 20 171/72 (105) 97 01/21/19 20:00 Nasal Cannula 2.0 01/21/19 20:00 99 01/21/19 19:28 99 01/21/19 19:00 81 16 124/59 (80) 97 01/21/19 18:00 90 19 146/63 (90) 98 I&O Intake and Output 01/21/19 01/22/19 18:59 06:59 Intake Total 735.76 ml 448.7 ml Output Total 610 ml 780 ml Balance 125.76 ml -331.3 ml Intake Oral 650 ml 390 ml IV Total 85.76 ml 58.7 ml Output Urine Total 610 ml 780 ml # Bowel Movements 2 2 Dressing: saturated Wound: clean Drains: other Cardiovascular: RSR Respiratory: clear Abdomen: soft, present bowel sounds, non-distended Extremities: no tenderness, no cyanosis Laboratory Tests Test 01/22/19 05:20 White Blood Count 8.2 K/UL (4.8-10.8) Red Blood Count 4.38 M/UL (4.20-5.40) Hemoglobin 11.8 G/DL (12.0-16.0) L Hematocrit 36.7 % (37.0-47.0) L Mean Corpuscular Volume 84 FL (80-99) Mean Corpuscular Hemoglobin 27.0 PG (27.0-31.0) Mean Corpuscular Hemoglobin Concent 32.3 G/DL (32.0-36.0) Red Cell Distribution Width 16.4 % (11.6-14.8) H Platelet Count 332 K/UL (150-450) Mean Platelet Volume 7.0 FL (6.5-10.1) Neutrophils (%) (Auto) 82.6 % (45.0-75.0) H Lymphocytes (%) (Auto) 11.5 % (20.0-45.0) L Monocytes (%) (Auto) 4.2 % (1.0-10.0) Eosinophils (%) (Auto) 0.9 % (0.0-3.0) Basophils (%) (Auto) 0.9 % (0.0-2.0) Prothrombin Time 10.5 SEC (9.30-11.50) Prothromb Time International Ratio 1.0 (0.9-1.1) Activated Partial Thromboplast Time 27 SEC (23-33) Sodium Level 139 MMOL/L (136-145) Potassium Level 3.9 MMOL/L (3.5-5.1) Chloride Level 101 MMOL/L (98-107) Carbon Dioxide Level 32 MMOL/L (21-32) Anion Gap 6 mmol/L (5-15) Blood Urea Nitrogen 12 mg/dL (7-18) Creatinine 0.6 MG/DL (0.55-1.30) Estimat Glomerular Filtration Rate mL/min (>60) Glucose Level 138 MG/DL (74-106) H Calcium Level 9.1 MG/DL (8.5-10.1) Total Bilirubin 0.3 MG/DL (0.2-1.0) Aspartate Amino Transf (AST/SGOT) 16 U/L (15-37) Alanine Aminotransferase (ALT/SGPT) 15 U/L (12-78) Alkaline Phosphatase 108 U/L (46-116) Troponin I 0.095 ng/mL (0.000-0.056) Pro-B-Type Natriuretic Peptide 1257 pg/mL (0-125) H Total Protein 7.5 G/DL (6.4-8.2) Albumin 2.3 G/DL (3.4-5.0) L Globulin 5.2 g/dL Albumin/Globulin Ratio 0.4 (1.0-2.7) L Plan Problems: (1) Decubital ulcer Assessment & Plan: Pt presented on admission with multiple ,Pressure injuries, MASD bilateral breasts folds, abd folds, bilateral groin and medial aspects of both thighs. Erythema with denuded skin noted to affected areas. Moisture intertrigo noted to R groin. Scattered Nevi noted to back and medial aspects of both upper thighs.Pt also noted to have numerous skin tags medial upper thighs. Resolving pressure injury noted to sacral area.Base of wound with pink epithelial with surrounding hyperpigmentation .Small wound noted at sacrococcygeal area(L)1.0cm x (W)0.9cm. Base of wound is moist and viable. Hyperpigmentation from previous pressure injury noted in crevices of skin R ischium. Caregiver at bedside and stated pt has Hx of Recurrent pressure injuries to sacrum and R ischium.Hyperpigmentation noted to L ischium. L heel boggy with non-blanchable erythema non-tender when palpated. Non-blanchable erythema with fluctuance at base medial aspect of R heel. (L) 1.5cm x (W)2.3cm Edemae and Foot drop noted to both feet. Eschar with surrounding erythema noted to R 1st metatarsal head. Small amt purulent exudate noted when wound minimally palpated. Small partial thickness ulcers without exudate noted to dorsum of R 2nd,3rd,4th and 5th metatarsals.Wounds are erythematous at base .Periwound metatarsals are pale and shiny. Tx.Plan: Wash skin folds of both breasts and abd folds with soap and water. Apply Light dusting of Antifungal powder every shift. Apply Triad Paste to buttocks both ischial areas, bilat groin and medial / posterior aspects of both upper thighs with each incontinence care. Apply Triad Paste to sacrum.Cover with Optifoam drsg. Change every 3 days and prn. Swab R 1st metatarsal head with Betadine. Cover with Optifoam drsg Daily and prn. Apply Cavilon to both heels .Cover each heel with Optifoam drsg.Change every 7 days and prn. Apply Betadine to dorsals of 2nd,3rd,4th and 5th metatarsals. Bariatric bed with Air fluidized mattress. Reposition at least every 2hours or as tolerated. Off-load heels with pillow. (2) Multiple sclerosis (3) Obstipation Assessment & Plan: abdomen distended KUB noted and okay exam without tenderness decreased bowel sounds cont with diet will follow with exam (4) Urinary tract infection (5) Hypoxemia (6) Tachycardia (7) Pneumonia (8) Obesities, morbid Assessment & Plan: DAILY ESTIMATED NEEDS: Needs based on Pulmonary, obese 78kg adj 20-25 kcals/kg 2769-2617 total kcals 1-1.5 g protein/kg 78-117 g total protein Fluid per MD, on lasix NUTRITION DIAGNOSIS: 1) Decreased sodium and fat intake needs R/T cardiac hx, PNA as evidenced by on diuretics, HTN, BMI >40, pt is @191% [place] Body Weight. 2) Self feeding difficulty r/t MS as evidenced by pt w/ BL UE contractures, requires 1:1 feedings. PO DIET RECOMMENDATIONS: Cardiac, CCHO MED (texture per COOPER APPRENTICE) ---- ADDITIONAL RECOMMENDATIONS: 1) COOPER APPRENTICE eval for appropriate texture (h/o MS w/ contractures, need for 1:1) 2) Wound Care: photos noted, pending MD eval 3) A1C for eval (need for diet change to ccho low w/ 2x prot) 4) Check lytes daily on lasix, replete as needed (Mg 1.6) (9) Encounter for generalized patient complaints John Toledo January 22, 2019 17:26
--- NOTE | 2019-01-22 17:50 | NUR ---
NURSE NOTES: Dr. Dill here to see the patient. MD aware of cough, and BP on calf is higher than arm. BP on right arm stable, without nipride gtt. Okay to start breathing tx per MD.
--- NOTE | 2019-01-22 17:52 | Pulmonolgy Critical Care Note ---
Critical Care - Asmt/Plan Assessment/Plan: 1. Pneumonia 2. UTI with chronic suprapubic catheter, e coli 3. Multiple sclerosis. 4. Sinus tachycardia 5. Diabetes. 6. Hyponatremia. 7. Neurogenic bladder. 8. Hypertension with urgency 9. Hyperlipidemia. monitor bp over night resume Nipride if over 180 oral meds continued o2 tf and wound care monitor uop continue ICU Cardiac: continue to monitor HR/BP Infectious Disease: check cultures, continue antibiotics Disposition: keep in ICU Time Spent (Minutes): 40 Discussed with: nurses Critical Care - Objective Last 24 Hour Vital Signs Date Time Temp Pulse Resp B/P (MAP) Pulse Ox O2 Delivery O2 Flow Rate FiO2 01/22/19 17:03 102 17 129/65 (86) 100 01/22/19 16:00 98.4 92 20 147/81 (103) 99 01/22/19 15:30 102 18 133/71 (91) 96 01/22/19 15:25 96 22 225/100 (141) 99 01/22/19 15:15 90 18 195/92 (126) 99 01/22/19 15:00 95 17 171/87 (115) 99 01/22/19 14:45 92 19 148/76 (100) 99 01/22/19 14:30 88 17 127/62 (83) 100 01/22/19 14:15 90 16 112/62 (79) 100 01/22/19 14:00 96 20 121/59 (79) 100 01/22/19 13:45 90 17 98/53 (68) 100 01/22/19 13:30 103 17 101/53 (69) 99 01/22/19 13:15 99 19 166/83 (110) 100 01/22/19 13:06 137/68 01/22/19 13:00 94 18 137/68 (91) 100 01/22/19 12:45 100 17 131/66 (87) 97 01/22/19 12:30 92 19 132/75 (94) 100 01/22/19 12:15 91 18 122/68 (86) 100 01/22/19 12:00 Nasal Cannula 2.0 01/22/19 12:00 100 01/22/19 12:00 98.2 97 19 141/71 (94) 100 01/22/19 11:45 99 22 145/79 (101) 100 01/22/19 11:30 102 22 135/92 (106) 85 01/22/19 11:15 103 22 141/71 (94) 93 01/22/19 11:00 104 18 153/69 (97) 100 01/22/19 10:45 98 18 142/71 (94) 100 01/22/19 10:30 103 19 126/72 (90) 99 01/22/19 10:15 104 16 132/64 (86) 100 01/22/19 10:00 103 20 140/70 (93) 97 01/22/19 09:45 104 20 128/69 (88) 98 01/22/19 09:30 99 19 135/73 (93) 94 01/22/19 09:15 109 20 126/59 (81) 94 01/22/19 09:00 112 20 151/72 (98) 96 01/22/19 08:45 112 20 133/62 (85) 95 01/22/19 08:30 114 15 168/79 (108) 99 01/22/19 08:29 112 169/82 01/22/19 08:28 169/82 01/22/19 08:15 110 17 169/82 (111) 100 01/22/19 08:00 114 01/22/19 08:00 Room Air 01/22/19 08:00 98.2 114 19 161/74 (103) 100 01/22/19 07:45 109 19 156/110 (125) 100 01/22/19 07:30 107 18 123/76 (92) 100 01/22/19 07:15 112 17 145/78 (100) 100 01/22/19 07:00 109 22 145/78 (100) 99 01/22/19 06:00 112 22 126/67 (86) 100 01/22/19 05:00 116 21 131/63 (85) 97 01/22/19 04:00 98.6 125 21 146/71 (96) 94 01/22/19 04:00 Nasal Cannula 2.0 01/22/19 03:34 125 01/22/19 03:00 127 23 162/73 (102) 93 01/22/19 02:00 128 24 210/77 (121) 94 01/22/19 01:21 207/95 01/22/19 01:00 103 21 207/95 (132) 96 01/22/19 00:00 113 01/22/19 00:00 97.9 92 18 166/79 (108) 94 01/22/19 00:00 Nasal Cannula 2.0 01/21/19 23:10 113 01/21/19 23:00 104 18 166/82 (110) 94 01/21/19 22:00 92 18 159/65 (96) 98 01/21/19 21:30 98 20 164/66 (98) 96 01/21/19 21:00 98 21 172/102 (125) 96 01/21/19 20:57 168/89 01/21/19 20:21 Nasal Cannula 2.0 28 01/21/19 20:20 96 Nasal Cannula 2.0 28 01/21/19 20:00 97.9 96 20 171/72 (105) 97 01/21/19 20:00 Nasal Cannula 2.0 01/21/19 20:00 99 01/21/19 19:28 99 01/21/19 19:00 81 16 124/59 (80) 97 01/21/19 18:00 90 19 146/63 (90) 98 Status: awake Heart: HR/BP stable Abdomen: soft, active bowel sounds Extremities: edema Accucheck: 92 Critical Care - Subjective ROS Limited/Unobtainable: Yes Condition: improving FI02: 28 Sputum Amount: Small I&O: Intake and Output 01/21/19 01/22/19 18:59 06:59 Intake Total 735.76 ml 448.7 ml Output Total 610 ml 780 ml Balance 125.76 ml -331.3 ml Intake Oral 650 ml 390 ml IV Total 85.76 ml 58.7 ml Output Urine Total 610 ml 780 ml # Bowel Movements 2 2 Subjective: on and off nipride last 24 hours BP on leg elevated arm is normal but pt with severe pain and refusing bp from arm awake and alert no distres PO modified no wound positive uop Labs: Current Medications Medications (Trade) Dose Ordered Sig/Mj Route PRN Reason Start Time Stop Time Status Last Admin Dose Admin Acetaminophen (Tylenol) 650 mg Q4H PRN ORAL Mild Pain/Temp > 100.5 01/21/19 05:00 02/15/19 04:59 01/22/19 08:37 Amlodipine Besylate (Norvasc) 5 mg DAILY ORAL 01/22/19 09:00 02/21/19 08:59 01/22/19 08:29 Atorvastatin Calcium (Lipitor) 10 mg BEDTIME ORAL 01/21/19 21:00 02/15/19 20:59 01/21/19 20:57 Baclofen (Lioresal) 10 mg THREE TIMES A DAY ORAL 01/21/19 09:00 02/15/19 08:59 01/22/19 17:02 Ceftriaxone Sodium 1 gm/ Dextrose 50 ml @ 100 mls/hr Q24H IVPB 01/21/19 16:00 01/26/19 15:59 01/22/19 17:02 Clonidine HCl (Catapres Tab) 0.1 mg EVERY 8 HOURS ORAL 01/22/19 14:00 02/21/19 13:59 01/22/19 13:06 Furosemide (Lasix) 20 mg DAILY ORAL 01/21/19 09:00 02/19/19 08:59 01/22/19 08:28 Guaifenesin/ Codeine Phosphate (Robitussin with codeine) 5 ml Q6H PRN ORAL For Cough 01/21/19 02:44 02/16/19 02:43 01/22/19 11:18 Hydralazine HCl (Apresoline) 10 mg Q6H PRN IV SBP >170 01/21/19 06:00 02/20/19 00:00 01/22/19 01:21 Lisinopril (Prinivil) 20 mg Q12HR ORAL 01/21/19 13:00 02/20/19 12:59 01/22/19 08:28 Metformin HCl (Glucophage) 500 mg TWICE A DAY ORAL 01/21/19 09:00 02/15/19 08:59 01/22/19 17:02 Pantoprazole (Protonix) 40 mg DAILY ORAL 01/21/19 09:00 02/15/19 08:59 01/22/19 08:29 Patient Own Medication (Patient's Own Med) 1 ea QOD SUBQ 01/22/19 09:00 02/17/19 08:59 01/22/19 08:29 Polyethylene Glycol (Miralax) 17 gm DAILY ORAL 01/22/19 09:00 02/21/19 08:59 Sodium Nitroprusside 50 mg/Dextrose 250 ml @ 0 mls/hr Q24H IV 01/21/19 03:00 02/20/19 02:59 01/22/19 02:04 Tizanidine HCl (Zanaflex) 4 mg THREE TIMES A DAY ORAL 01/21/19 09:00 02/15/19 08:59 01/22/19 17:02 Trazodone HCl (Desyrel) 100 mg BEDTIME PRN ORAL insomnia 01/21/19 02:35 02/19/19 02:34 01/21/19 20:57 Laboratory Tests Test 01/22/19 05:20 White Blood Count 8.2 K/UL (4.8-10.8) Red Blood Count 4.38 M/UL (4.20-5.40) Hemoglobin 11.8 G/DL (12.0-16.0) L Hematocrit 36.7 % (37.0-47.0) L Mean Corpuscular Volume 84 FL (80-99) Mean Corpuscular Hemoglobin 27.0 PG (27.0-31.0) Mean Corpuscular Hemoglobin Concent 32.3 G/DL (32.0-36.0) Red Cell Distribution Width 16.4 % (11.6-14.8) H Platelet Count 332 K/UL (150-450) Mean Platelet Volume 7.0 FL (6.5-10.1) Neutrophils (%) (Auto) 82.6 % (45.0-75.0) H Lymphocytes (%) (Auto) 11.5 % (20.0-45.0) L Monocytes (%) (Auto) 4.2 % (1.0-10.0) Eosinophils (%) (Auto) 0.9 % (0.0-3.0) Basophils (%) (Auto) 0.9 % (0.0-2.0) Prothrombin Time 10.5 SEC (9.30-11.50) Prothromb Time International Ratio 1.0 (0.9-1.1) Activated Partial Thromboplast Time 27 SEC (23-33) Sodium Level 139 MMOL/L (136-145) Potassium Level 3.9 MMOL/L (3.5-5.1) Chloride Level 101 MMOL/L (98-107) Carbon Dioxide Level 32 MMOL/L (21-32) Anion Gap 6 mmol/L (5-15) Blood Urea Nitrogen 12 mg/dL (7-18) Creatinine 0.6 MG/DL (0.55-1.30) Estimat Glomerular Filtration Rate mL/min (>60) Glucose Level 138 MG/DL (74-106) H Calcium Level 9.1 MG/DL (8.5-10.1) Total Bilirubin 0.3 MG/DL (0.2-1.0) Aspartate Amino Transf (AST/SGOT) 16 U/L (15-37) Alanine Aminotransferase (ALT/SGPT) 15 U/L (12-78) Alkaline Phosphatase 108 U/L (46-116) Troponin I 0.095 ng/mL (0.000-0.056) Pro-B-Type Natriuretic Peptide 1257 pg/mL (0-125) H Total Protein 7.5 G/DL (6.4-8.2) Albumin 2.3 G/DL (3.4-5.0) L Globulin 5.2 g/dL Albumin/Globulin Ratio 0.4 (1.0-2.7) Kenyetta Todd DO January 22, 2019 17:52
[2019-01-22] MEDS ORDERED: Albuterol/Ipratropium 3ml neb HHN PRN (18:45)
--- NOTE | 2019-01-22 19:16 | NUR ---
HAND-OFF: Report given to SHEMAR Bingham. family members at bedside
--- NOTE | 2019-01-22 19:30 | NUR ---
NURSE NOTES: Received pt in no acute distress. AAOx4; denies any pain, denies SOB at this time. BUE contracted; BLE flaccid. Grossly obese, pt on roxanna bed. HOB elevated. ST on the scope; afebrile; BP 142/84 on RODGER. PIV site on left hand patent with IV at TKO. Suprapubic cath intact draining light puneet urine, clear. Will continue to monitor BP and restart Nipride gtt if needed. Plan of care explained to pt and family. Pt's own med, Betaseron given to Pharmacy.
[2019-01-22] MEDS: TraZODone 100mg tab ORAL PRN (21:27)
--- NOTE | 2019-01-22 22:00 | NUR ---
NURSE NOTES: Awake but calm, watches TV. All due meds given po with water; HOB elevated. Pt trying to settle in for the night. BP remains stable
[2019-01-23] VITALS (24 sets, daily range): BP systolic 106–183; BP diastolic 48–84
--- NOTE | 2019-01-23 | NUR ---
NURSE NOTES: Sleeping, no distress; VSS
--- NOTE | 2019-01-23 02:00 | NUR ---
NURSE NOTES: Sleeping; VSS, no distress
--- NOTE | 2019-01-23 04:00 | NUR ---
NURSE NOTES: Awake, denies pain; had 1 large soft stool. Complete bed bath given. Redressed sacral wound. Pleasant and cooperative. BP stable; pt did not require Nipride gtt. VSS
[2019-01-23 05:17] LABS: BASOPHILS % (AUTO) 0.9 % (0.0-2.0); EOSINOPHILS % (AUTO) 5.9 % (0.0-3.0); HEMATOCRIT 35.8 % (37.0-47.0); HEMOGLOBIN 11.6 G/DL (12.0-16.0); LYMPHOCYTES % (AUTO) 27.8 % (20.0-45.0); MEAN CORPUSCULAR VOLUME 84 FL (80-99); MONOCYTES % (AUTO) 7.1 % (1.0-10.0); NEUTROPHILS % (AUTO) 58.3 % (45.0-75.0); PLATELET COUNT 371 K/UL (150-450); RED BLOOD COUNT 4.27 M/UL (4.20-5.40); RED CELL DISTRIBUTION WIDTH 16.8 % (11.6-14.8); WHITE BLOOD COUNT 5.7 K/UL (4.8-10.8)
[2019-01-23 05:40] LABS: ALANINE AMINOTRANSFERASE 15 U/L (12-78); ALBUMIN 2.2 G/DL (3.4-5.0); ALBUMIN/GLOBULIN RATIO 0.4 (1.0-2.7); ALKALINE PHOSPHATASE 100 U/L (46-116); ANION GAP 6 mmol/L (5-15); ASPARTATE AMINO TRANSFERASE 20 U/L (15-37); BILIRUBIN,TOTAL 0.3 MG/DL (0.2-1.0); BLOOD UREA NITROGEN 10 mg/dL (7-18); CARBON DIOXIDE 33 MMOL/L (21-32); CHLORIDE 103 MMOL/L (98-107); CREATININE 0.5 MG/DL (0.55-1.30); POTASSIUM 4.3 MMOL/L (3.5-5.1); SODIUM 141 MMOL/L (136-145)
--- NOTE | 2019-01-23 07:41 | NUR ---
HAND-OFF: Report given to Nicole STATON.
--- NOTE | 2019-01-23 07:42 | NUR ---
NURSE NOTES: Received pt and change of shift report from Zachery STATON. Pt is asleep in semi-maria's position, awakens to name/voice, oriented x4. Pt is on 3L of oxygen via nasal cannula with O2sat 99%. Bilateral rhonchi heard on auscultation. Pt has productive cough, pt suctioned orally with output of thick white sputum. hall monitor displays SR with heart rate fluctuating in the 90's, and BP 160/70. Bounding radial and pedal pulses present on palpation on extremities. Bilateral upper extremities edema noted. Peripheral IV access present on right wrist #20G and left hand #24G, both saline locks, patent/intact. Abdomen is large, round, soft/nontender to touch, with hyperactive bowel sounds heard on auscultation. Per report, pt had x1 large BM during the assistant shift supervisor, on Miralax. Barrios catheter is in place, draining clear/yellow urine. Skin has sacral skin tear covered with optifoam dresssing and bilateral heel erythema covered with optifoam dressing, bilateral upper thigh skin tags/carroll noted. Pt is on aspiration and fall precautions, and is placed on bariatric bed with three side rails up, brakes engaged, alarm on and call light within easy reach. Will continue to monitor pt and follow plan of care per MD orders and protocol.
--- NOTE | 2019-01-23 08:00 | NUR ---
NURSE NOTES: Pt has been refusing the SCDs per assistant shift supervisor report. Pt was offered SCDs again this morning, to which she refused again stating "it's a waste of time and I don't want it". Pt was given the rationale for the SCDs and its benefits as well as risk of not using, however pt insisted on her refusal. MD will be notified.
[2019-01-23] MEDS: Lisinopril 20mg tab ORAL SCH ×2 (08:21→20:25)
[2019-01-23] MEDS: metFORMIN 500mg tab ORAL SCH ×2 (08:21→18:51)
[2019-01-23] MEDS: Miralax 17gm pkt ORAL SCH (08:22)
--- NOTE | 2019-01-23 09:00 | NUR ---
NURSE NOTES: Pt was seen and examined by Dr Quiroz. Order received for additional Lasix 20mg x1 now. Pt also has order in place for bilateral UE arterial duplex, to be done today. Will process and follow order for Lasix. Pt was assisted with breakfast feeding one to one, tolerated well with no s/s of aspiration of nausea/vomiting. Pt ate 50% of breakfast and had no further appetite to finish the tray. Oral care given. Pt is resting in stable condition, watching TV.
[2019-01-23] MEDS: guaiFENesin w/Codeine 5ml Liq ud ORAL PRN ×2 (09:32→21:21)
--- NOTE | 2019-01-23 10:00 | NUR ---
NURSE NOTES: Pt was administered Robitussin PO x1 for cough, and is requesting her PRN Duoneb treatment. RT informed. VS stable. Barrios catheter is draining 100mL/hourly clear/yellow urine. Temp 98.7F axillary.
--- NOTE | 2019-01-23 11:26 | NUR ---
RD ASSESSMENT & RECOMMENDATIONS SEE CARE ACTIVITY FOR COMPLETE ASSESSMENT DAILY ESTIMATED NEEDS: Needs based on Pulmonary, obese, wounds 78kg adj 20-25 kcals/kg 1340-2002 total kcals 1.25-1.5 g protein/kg 98-117 g total protein Fluid per MD, on lasix NUTRITION DIAGNOSIS: 1) Decreased sodium and fat intake needs R/T cardiac hx, PNA as evidenced by on diuretics, HTN, BMI >40, pt is @191% [place] Body Weight. 2) Self feeding difficulty r/t MS as evidenced by pt w/ BL UE contractures, requires 1:1 feedings. CURRENT DIET: CCHO MED soft easy chew + NTL PO DIET RECOMMENDATIONS: Cardiac, CCHO MED (texture per ORDER ADMINISTRATOR) ---- ADDITIONAL RECOMMENDATIONS: 1) ORDER ADMINISTRATOR eval for appropriate texture (h/o MS w/ contractures, need for 1:1) 2) Wound Care: add ERI BID + MVI x1 + Vit C 250mg daily 3) A1C for eval (need for diet change to ccho low w/ 2x prot) 4) Check lytes daily on lasix, replete as needed 5) Add HIGH protein snacks in b/w meals 6) RE-CALIBRATE BED SCALE FOR ACCURATE CBW, currently reads in error
--- NOTE | 2019-01-23 11:29 | NUR ---
NURSE NOTES: BP elevated to 183/84, with rhythm ST, heart rate 115, oxygen desaturating at 89% while on 3L of oxygen via nasal cannula. Pt placed on Venturi mask at 55% FIO2 15L, and Tylenol 650mg PO given for PRN generalized pain.
--- NOTE | 2019-01-23 11:30 | NUR ---
NURSE NOTES: Pt's oxygen saturation is fluctuating from 89% to 96% while on 3L of oxygen via nasal cannula. RT at bedside. Pt has audible congestion and is unable to expectorate and needs nasotracheal suctioning, however pt is refusing at this time. Pt was placed on Venturi mask at 55% FIO2 15L of oxygen. Pt wants to rest now and is refusing to be suctioned at this time. Will reattempt.
--- NOTE | 2019-01-23 11:45 | NUR ---
NURSE NOTES: O2 sat improved to 99% while pt is on Venturi mask at 55% FIO2 15L of oxygen.
--- NOTE | 2019-01-23 12:30 | Pulmonology Progress Note ---
Assessment/Plan Assessment/Plan 1. Pneumonia 2. UTI with chronic suprapubic catheter, e coli 3. Multiple sclerosis. 4. Sinus tachycardia 5. Diabetes. 6. Hyponatremia. 7. Neurogenic bladder. 8. Hypertension. 9. Hyperlipidemia. BP better, still high at times lab and CXR ordered ROBBY soon if stable Subjective Constitutional: Reports: no symptoms Allergies: Coded Allergies: SULFA (SULFONAMIDE ANTIBIOTICS) (Verified Allergy, Unknown, 11/22/17) Objective Last 24 Hour Vital Signs Date Time Temp Pulse Resp B/P (MAP) Pulse Ox O2 Delivery O2 Flow Rate FiO2 01/23/19 12:00 97 18 134/63 (86) 97 01/23/19 12:00 Nasal Cannula 2.0 01/23/19 11:47 98.0 01/23/19 11:00 115 20 183/84 (117) 93 01/23/19 10:46 98 22 100 Nasal Cannula 2.0 28 01/23/19 10:30 98 22 100 Nasal Cannula 2.0 28 01/23/19 10:00 97 18 106/55 (72) 100 01/23/19 09:20 98.0 01/23/19 09:00 106 16 169/72 (104) 97 01/23/19 08:22 98 141/54 01/23/19 08:21 141/54 01/23/19 08:00 Nasal Cannula 2.0 01/23/19 08:00 99 01/23/19 08:00 97.8 98 17 141/54 (83) 100 01/23/19 07:15 97 Nasal Cannula 2.0 28 01/23/19 07:15 Nasal Cannula 2.0 28 01/23/19 07:00 143/54 01/23/19 07:00 105 18 138/65 (89) 99 01/23/19 06:00 98 16 143/54 (83) 100 01/23/19 05:00 99 19 146/61 (89) 100 01/23/19 04:00 98.0 108 140/62 (88) 96 01/23/19 04:00 97 01/23/19 04:00 Nasal Cannula 2.0 01/23/19 03:17 96 Nasal Cannula 2.0 28 01/23/19 03:17 Nasal Cannula 2.0 28 01/23/19 03:00 97 19 141/62 (88) 96 01/23/19 02:00 102 16 133/66 (88) 95 01/23/19 01:00 97 17 149/71 (97) 95 01/23/19 00:00 97.9 97 18 155/69 (97) 97 01/23/19 00:00 100 01/23/19 00:00 Nasal Cannula 2.0 01/22/19 23:00 95 16 147/63 (91) 97 01/22/19 22:00 99 19 146/73 (97) 97 01/22/19 21:17 143/72 01/22/19 21:17 143/72 01/22/19 21:00 95 18 143/72 (95) 99 01/22/19 20:00 104 01/22/19 20:00 98.5 104 18 154/76 (102) 98 01/22/19 20:00 Nasal Cannula 2.0 01/22/19 19:00 92 20 119/56 (77) 100 01/22/19 18:00 87 17 130/57 (81) 99 01/22/19 17:03 102 17 129/65 (86) 100 01/22/19 16:00 Nasal Cannula 2.0 01/22/19 16:00 98.4 92 20 147/81 (103) 99 01/22/19 16:00 94 01/22/19 15:30 102 18 133/71 (91) 96 01/22/19 15:25 96 22 225/100 (141) 99 01/22/19 15:15 90 18 195/92 (126) 99 01/22/19 15:00 95 17 171/87 (115) 99 01/22/19 14:45 92 19 148/76 (100) 99 01/22/19 14:30 88 17 127/62 (83) 100 01/22/19 14:15 90 16 112/62 (79) 100 01/22/19 14:00 96 20 121/59 (79) 100 01/22/19 13:45 90 17 98/53 (68) 100 01/22/19 13:30 103 17 101/53 (69) 99 01/22/19 13:15 99 19 166/83 (110) 100 01/22/19 13:06 137/68 01/22/19 13:00 94 18 137/68 (91) 100 01/22/19 12:45 100 17 131/66 (87) 97 01/22/19 12:30 92 19 132/75 (94) 100 Intake and Output 01/22/19 01/23/19 19:00 07:00 Intake Total 712.580 ml 720 ml Output Total 840 ml 780 ml Balance -127.420 ml -60 ml Intake Oral 600 ml 720 ml IV Total 112.580 ml Output Urine Total 840 ml 780 ml # Bowel Movements 2 Objective obese General Appearance: no acute distress Respiratory/Chest: lungs clear, decreased breath sounds Cardiovascular: normal rate Laboratory Tests 01/23/19 04:00: White Blood Count 5.7, Red Blood Count 4.27, Hemoglobin 11.6L, Hematocrit 35.8L , Mean Corpuscular Volume 84, Mean Corpuscular Hemoglobin 27.2, Mean Corpuscular Hemoglobin Concent 32.4, Red Cell Distribution Width 16.8H, Platelet Count 371, Mean Platelet Volume 6.8, Neutrophils (%) (Auto) 58.3, Lymphocytes (%) (Auto) 27.8, Monocytes (%) (Auto) 7.1, Eosinophils (%) (Auto) 5.9H, Basophils (%) (Auto) 0.9, Erythrocyte Sedimentation Rate 77H, Sodium Level 141, Potassium Level 4.3, Chloride Level 103, Carbon Dioxide Level 33H, Anion Gap 6, Blood Urea Nitrogen 10, Creatinine 0.5L, Estimat Glomerular Filtration Rate , Glucose Level 100, Calcium Level 9.0, Total Bilirubin 0.3, Aspartate Amino Transf (AST/SGOT) 20, Alanine Aminotransferase (ALT/SGPT) 15, Alkaline Phosphatase 100, C-Reactive Protein, Quantitative 1.3H, Total Protein 7.6, Albumin 2.2L, Globulin 5.4, Albumin/Globulin Ratio 0.4L Current Medications Medications (Trade) Dose Ordered Sig/Mj Route PRN Reason Start Time Stop Time Status Last Admin Dose Admin Acetaminophen (Tylenol) 650 mg Q4H PRN ORAL Mild Pain/Temp > 100.5 01/21/19 05:00 02/15/19 04:59 01/23/19 11:17 Albuterol/ Ipratropium (Albuterol/ Ipratropium) 3 ml Q4H PRN HHN Shortness of Breath 01/22/19 18:45 01/27/19 18:44 01/23/19 10:45 Amlodipine Besylate (Norvasc) 5 mg DAILY ORAL 01/22/19 09:00 02/21/19 08:59 01/23/19 08:22 Atorvastatin Calcium (Lipitor) 10 mg BEDTIME ORAL 01/21/19 21:00 02/15/19 20:59 01/22/19 21:17 Baclofen (Lioresal) 10 mg THREE TIMES A DAY ORAL 01/21/19 09:00 02/15/19 08:59 01/23/19 08:21 Ceftriaxone Sodium 1 gm/ Dextrose 50 ml @ 100 mls/hr Q24H IVPB 01/21/19 16:00 01/26/19 15:59 01/22/19 17:02 Clonidine HCl (Catapres Tab) 0.1 mg EVERY 8 HOURS ORAL 01/22/19 14:00 02/21/19 13:59 01/23/19 07:00 Furosemide (Lasix) 20 mg DAILY ORAL 01/21/19 09:00 02/19/19 08:59 01/23/19 08:21 Guaifenesin/ Codeine Phosphate (Robitussin with codeine) 5 ml Q6H PRN ORAL For Cough 01/21/19 02:44 02/16/19 02:43 01/23/19 09:32 Hydralazine HCl (Apresoline) 10 mg Q6H PRN IV SBP >170 01/21/19 06:00 02/20/19 00:00 01/22/19 01:21 Lisinopril (Prinivil) 20 mg Q12HR ORAL 01/21/19 13:00 02/20/19 12:59 01/23/19 08:21 Metformin HCl (Glucophage) 500 mg TWICE A DAY ORAL 01/21/19 09:00 02/15/19 08:59 01/23/19 08:21 Pantoprazole (Protonix) 40 mg DAILY ORAL 01/21/19 09:00 02/15/19 08:59 01/23/19 08:21 Patient Own Medication (Patient's Own Med) 1 ea QOD SUBQ 01/22/19 09:00 02/17/19 08:59 01/22/19 08:29 Polyethylene Glycol (Miralax) 17 gm DAILY ORAL 01/22/19 09:00 02/21/19 08:59 01/23/19 08:22 Sodium Nitroprusside 50 mg/Dextrose 250 ml @ 0 mls/hr Q24H IV 01/21/19 03:00 02/20/19 02:59 01/22/19 02:04 Tizanidine HCl (Zanaflex) 4 mg THREE TIMES A DAY ORAL 01/21/19 09:00 02/15/19 08:59 01/23/19 08:21 Trazodone HCl (Desyrel) 100 mg BEDTIME PRN ORAL insomnia 01/21/19 02:35 02/19/19 02:34 01/22/19 21:27 Robb Quiroz MD January 23, 2019 12:30
--- NOTE | 2019-01-23 13:19 | Surgery Progress Note ---
Surgery Progress Note Subjective Symptoms: improved, passing flatus, BM, pain decreased Objective Last 24 Hour Vital Signs Date Time Temp Pulse Resp B/P (MAP) Pulse Ox O2 Delivery O2 Flow Rate FiO2 01/23/19 12:00 101 01/23/19 12:00 97 18 134/63 (86) 97 01/23/19 12:00 Nasal Cannula 2.0 01/23/19 11:47 98.0 01/23/19 11:00 115 20 183/84 (117) 93 01/23/19 10:46 98 22 100 Nasal Cannula 2.0 28 01/23/19 10:30 98 22 100 Nasal Cannula 2.0 28 01/23/19 10:00 97 18 106/55 (72) 100 01/23/19 09:20 98.0 01/23/19 09:00 106 16 169/72 (104) 97 01/23/19 08:22 98 141/54 01/23/19 08:21 141/54 01/23/19 08:00 Nasal Cannula 2.0 01/23/19 08:00 99 01/23/19 08:00 97.8 98 17 141/54 (83) 100 01/23/19 07:15 97 Nasal Cannula 2.0 28 01/23/19 07:15 Nasal Cannula 2.0 28 01/23/19 07:00 143/54 01/23/19 07:00 105 18 138/65 (89) 99 01/23/19 06:00 98 16 143/54 (83) 100 01/23/19 05:00 99 19 146/61 (89) 100 01/23/19 04:00 98.0 108 140/62 (88) 96 01/23/19 04:00 97 01/23/19 04:00 Nasal Cannula 2.0 01/23/19 03:17 96 Nasal Cannula 2.0 28 01/23/19 03:17 Nasal Cannula 2.0 28 01/23/19 03:00 97 19 141/62 (88) 96 01/23/19 02:00 102 16 133/66 (88) 95 01/23/19 01:00 97 17 149/71 (97) 95 01/23/19 00:00 97.9 97 18 155/69 (97) 97 01/23/19 00:00 100 01/23/19 00:00 Nasal Cannula 2.0 01/22/19 23:00 95 16 147/63 (91) 97 01/22/19 22:00 99 19 146/73 (97) 97 01/22/19 21:17 143/72 01/22/19 21:17 143/72 01/22/19 21:00 95 18 143/72 (95) 99 01/22/19 20:00 104 01/22/19 20:00 98.5 104 18 154/76 (102) 98 01/22/19 20:00 Nasal Cannula 2.0 01/22/19 19:00 92 20 119/56 (77) 100 01/22/19 18:00 87 17 130/57 (81) 99 01/22/19 17:03 102 17 129/65 (86) 100 01/22/19 16:00 Nasal Cannula 2.0 01/22/19 16:00 98.4 92 20 147/81 (103) 99 01/22/19 16:00 94 01/22/19 15:30 102 18 133/71 (91) 96 01/22/19 15:25 96 22 225/100 (141) 99 01/22/19 15:15 90 18 195/92 (126) 99 01/22/19 15:00 95 17 171/87 (115) 99 01/22/19 14:45 92 19 148/76 (100) 99 01/22/19 14:30 88 17 127/62 (83) 100 01/22/19 14:15 90 16 112/62 (79) 100 01/22/19 14:00 96 20 121/59 (79) 100 01/22/19 13:45 90 17 98/53 (68) 100 01/22/19 13:30 103 17 101/53 (69) 99 I&O Intake and Output 01/22/19 01/23/19 19:00 07:00 Intake Total 712.580 ml 720 ml Output Total 840 ml 780 ml Balance -127.420 ml -60 ml Intake Oral 600 ml 720 ml IV Total 112.580 ml Output Urine Total 840 ml 780 ml # Bowel Movements 2 Dressing: dry Wound: clean Cardiovascular: RSR Respiratory: clear Abdomen: soft, distended, non-tender, present bowel sounds Extremities: no tenderness, no cyanosis Laboratory Tests Test 01/23/19 04:00 White Blood Count 5.7 K/UL (4.8-10.8) Red Blood Count 4.27 M/UL (4.20-5.40) Hemoglobin 11.6 G/DL (12.0-16.0) L Hematocrit 35.8 % (37.0-47.0) L Mean Corpuscular Volume 84 FL (80-99) Mean Corpuscular Hemoglobin 27.2 PG (27.0-31.0) Mean Corpuscular Hemoglobin Concent 32.4 G/DL (32.0-36.0) Red Cell Distribution Width 16.8 % (11.6-14.8) H Platelet Count 371 K/UL (150-450) Mean Platelet Volume 6.8 FL (6.5-10.1) Neutrophils (%) (Auto) 58.3 % (45.0-75.0) Lymphocytes (%) (Auto) 27.8 % (20.0-45.0) Monocytes (%) (Auto) 7.1 % (1.0-10.0) Eosinophils (%) (Auto) 5.9 % (0.0-3.0) H Basophils (%) (Auto) 0.9 % (0.0-2.0) Erythrocyte Sedimentation Rate 77 MM/HR (0-30) H Sodium Level 141 MMOL/L (136-145) Potassium Level 4.3 MMOL/L (3.5-5.1) Chloride Level 103 MMOL/L (98-107) Carbon Dioxide Level 33 MMOL/L (21-32) H Anion Gap 6 mmol/L (5-15) Blood Urea Nitrogen 10 mg/dL (7-18) Creatinine 0.5 MG/DL (0.55-1.30) L Estimat Glomerular Filtration Rate mL/min (>60) Glucose Level 100 MG/DL (74-106) Calcium Level 9.0 MG/DL (8.5-10.1) Total Bilirubin 0.3 MG/DL (0.2-1.0) Aspartate Amino Transf (AST/SGOT) 20 U/L (15-37) Alanine Aminotransferase (ALT/SGPT) 15 U/L (12-78) Alkaline Phosphatase 100 U/L (46-116) C-Reactive Protein, Quantitative 1.3 mg/dL (0.00-0.90) H Total Protein 7.6 G/DL (6.4-8.2) Albumin 2.2 G/DL (3.4-5.0) L Globulin 5.4 g/dL Albumin/Globulin Ratio 0.4 (1.0-2.7) L Plan Problems: (1) Decubital ulcer Assessment & Plan: Pt presented on admission with multiple ,Pressure injuries, MASD bilateral breasts folds, abd folds, bilateral groin and medial aspects of both thighs. Erythema with denuded skin noted to affected areas. Moisture intertrigo noted to R groin. Scattered Nevi noted to back and medial aspects of both upper thighs.Pt also noted to have numerous skin tags medial upper thighs. Resolving pressure injury noted to sacral area.Base of wound with pink epithelial with surrounding hyperpigmentation .Small wound noted at sacrococcygeal area(L)1.0cm x (W)0.9cm. Base of wound is moist and viable. Hyperpigmentation from previous pressure injury noted in crevices of skin R ischium. Caregiver at bedside and stated pt has Hx of Recurrent pressure injuries to sacrum and R ischium.Hyperpigmentation noted to L ischium. L heel boggy with non-blanchable erythema non-tender when palpated. Non-blanchable erythema with fluctuance at base medial aspect of R heel. (L) 1.5cm x (W)2.3cm Edemae and Foot drop noted to both feet. Eschar with surrounding erythema noted to R 1st metatarsal head. Small amt purulent exudate noted when wound minimally palpated. Small partial thickness ulcers without exudate noted to dorsum of R 2nd,3rd,4th and 5th metatarsals.Wounds are erythematous at base .Periwound metatarsals are pale and shiny. Tx.Plan: Wash skin folds of both breasts and abd folds with soap and water. Apply Light dusting of Antifungal powder every shift. Apply Triad Paste to buttocks both ischial areas, bilat groin and medial / posterior aspects of both upper thighs with each incontinence care. Apply Triad Paste to sacrum.Cover with Optifoam drsg. Change every 3 days and prn. Swab R 1st metatarsal head with Betadine. Cover with Optifoam drsg Daily and prn. Apply Cavilon to both heels .Cover each heel with Optifoam drsg.Change every 7 days and prn. Apply Betadine to dorsals of 2nd,3rd,4th and 5th metatarsals. Bariatric bed with Air fluidized mattress. Reposition at least every 2hours or as tolerated. Off-load heels with pillow. (2) Multiple sclerosis (3) Obstipation Assessment & Plan: abdomen distended KUB noted and okay exam without tenderness decreased bowel sounds cont with diet will follow with exam (4) Urinary tract infection (5) Hypoxemia (6) Tachycardia (7) Pneumonia (8) Obesities, morbid Assessment & Plan: DAILY ESTIMATED NEEDS: Needs based on Pulmonary, obese 78kg adj 20-25 kcals/kg [id number] total kcals 1-1.5 g protein/kg 78-117 g total protein Fluid per MD, on lasix NUTRITION DIAGNOSIS: 1) Decreased sodium and fat intake needs R/T cardiac hx, PNA as evidenced by on diuretics, HTN, BMI >40, pt is @191% [place] Body Weight. 2) Self feeding difficulty r/t MS as evidenced by pt w/ BL UE contractures, requires 1:1 feedings. PO DIET RECOMMENDATIONS: Cardiac, CCHO MED (texture per COLLEGE PROFESSOR) ---- ADDITIONAL RECOMMENDATIONS: 1) COLLEGE PROFESSOR eval for appropriate texture (h/o MS w/ contractures, need for 1:1) 2) Wound Care: photos noted, pending MD eval 3) A1C for eval (need for diet change to ccho low w/ 2x prot) 4) Check lytes daily on lasix, replete as needed (Mg 1.6) (9) Encounter for generalized patient complaints John Toledo January 23, 2019 13:19
--- NOTE | 2019-01-23 14:35 | NUR ---
[facility] REPORTERVASCULAR RADIOLOGIST SI:PNA . HTN VS: BP 183/84, P 115, T 97.9, RR 22, SpO2 92 on 2.0 NC H&H 11.6/35.8, CR 0.5 IS:BACLOFEN 10mG ZANAFLEX 4mg ALBUTEROL 3ml HHN NORVASC 5mg PRINIVIL 20mg CLONIDINE 0.1mg METFORMIN 500mg ICU STATUS
--- NOTE | 2019-01-23 14:50 | NUR ---
NURSE NOTES: Pt reports x1 episode of blood-tinged sputum upon forced cough. Order for repeat chest xray in place for tomorrow AM. ophthalmology technician at bedside for arterial duplex on bilateral UE. Addendum: 01/23/19 at 1551 by PARVEEN ATKINS RN RT at bedside, pt was suctioned via nasotracheal route, with small output of yellow-tinged sputum. No evidence of blood on sputum as reported by pt.
--- NOTE | 2019-01-23 15:19 | Infectious Diseases Prog Note ---
Assessment/Plan Assessment/Plan ASSESSMENT AND PLAN: 1. e.coli uti/pyelonephritis, pneumonia vs chf, fevers, sputum culture - normal althea - rocephin - day # 8 abx - monitor labs and chest x-ray - fevers better - clinically better, more alert 2. Multiple sclerosis. 3. elevated bp - in icu and on tx 4. Suprapubic catheter that is chronic, neurogenic bladder 5. Morbid obesity. 6. Quadriplegia. 7. Hypertension. 8. Hyperlipidemia. 9. Diabetes type 2. 10. Colonic polyps. 11. Anemia. 12. History of colonoscopy. 13. Social history is negative for smoking, alcohol, or drug abuse. 14. Family history is noncontributory. 15. Allergies to sulfa drugs. 16. MAR was noted. 17. Case was discussed with RN. 18. ROBBY care. 19. Wound Skin care protocol. 20. Continue treatment per Dr. Quiroz and consultants. Subjective Constitutional: Denies: fever HEENT: Reports: congestion - mild Respiratory: Reports: shortness of breath - mild, some blood tinged sputum per patient Cardiovascular: Denies: chest pain Gastrointestinal/Abdominal: Denies: nausea, vomiting, diarrhea Genitourinary: Reports: other - + weber Neurologic: Denies: headache Psychiatric: Denies: depression Hematologic: Denies: bleeding Musculoskeletal: Denies: pain Allergies: Coded Allergies: SULFA (SULFONAMIDE ANTIBIOTICS) (Verified Allergy, Unknown, 11/22/17) Objective Vital Signs Last 24 Hour Vital Signs Date Time Temp Pulse Resp B/P (MAP) Pulse Ox O2 Delivery O2 Flow Rate FiO2 01/23/19 14:45 98.0 01/23/19 14:00 108 18 111/48 (69) 93 01/23/19 13:00 104 19 158/68 (98) 92 01/23/19 12:00 101 01/23/19 12:00 97.9 97 18 134/63 (86) 97 01/23/19 12:00 Nasal Cannula 2.0 01/23/19 11:47 98.0 01/23/19 11:00 115 20 183/84 (117) 93 01/23/19 10:46 98 22 100 Nasal Cannula 2.0 28 01/23/19 10:30 98 22 100 Nasal Cannula 2.0 28 01/23/19 10:00 97 18 106/55 (72) 100 01/23/19 09:00 106 16 169/72 (104) 97 01/23/19 08:22 98 141/54 01/23/19 08:21 141/54 01/23/19 08:00 Nasal Cannula 2.0 01/23/19 08:00 99 01/23/19 08:00 97.8 98 17 141/54 (83) 100 01/23/19 07:15 97 Nasal Cannula 2.0 28 01/23/19 07:15 Nasal Cannula 2.0 28 01/23/19 07:00 143/54 01/23/19 07:00 105 18 138/65 (89) 99 01/23/19 06:00 98 16 143/54 (83) 100 01/23/19 05:00 99 19 146/61 (89) 100 01/23/19 04:00 98.0 108 140/62 (88) 96 01/23/19 04:00 97 01/23/19 04:00 Nasal Cannula 2.0 01/23/19 03:17 96 Nasal Cannula 2.0 28 01/23/19 03:17 Nasal Cannula 2.0 28 01/23/19 03:00 97 19 141/62 (88) 96 01/23/19 02:00 102 16 133/66 (88) 95 01/23/19 01:00 97 17 149/71 (97) 95 01/23/19 00:00 97.9 97 18 155/69 (97) 97 01/23/19 00:00 100 01/23/19 00:00 Nasal Cannula 2.0 01/22/19 23:00 95 16 147/63 (91) 97 01/22/19 22:00 99 19 146/73 (97) 97 01/22/19 21:17 143/72 01/22/19 21:17 143/72 01/22/19 21:00 95 18 143/72 (95) 99 01/22/19 20:00 104 01/22/19 20:00 98.5 104 18 154/76 (102) 98 01/22/19 20:00 Nasal Cannula 2.0 01/22/19 19:00 92 20 119/56 (77) 100 01/22/19 18:00 87 17 130/57 (81) 99 01/22/19 17:03 102 17 129/65 (86) 100 01/22/19 16:00 Nasal Cannula 2.0 01/22/19 16:00 98.4 92 20 147/81 (103) 99 01/22/19 16:00 94 01/22/19 15:30 102 18 133/71 (91) 96 01/22/19 15:25 96 22 225/100 (141) 99 Height (Feet): 5 Height (Inches): 7.00 Weight (Pounds): 200 General Appearance: no acute distress HEENT: normocephalic, atraumatic, anicteric, mucous membranes moist Respiratory/Chest: normal breath sounds, no respiratory distress, no accessory muscle use Cardiovascular: normal rate, regular rhythm, no gallop/murmur, no JVD Abdomen: normal bowel sounds, soft, non tender, no organomegaly, non distended Genitourinary: other - + weber - urine clear Extremities: no cyanosis Skin: no rash Neurologic/Psychiatric: sr. media manager II-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 Findings: Patchy infiltrates noted on the right upper lobe and possibly left lung base as well. Generalized interstitial and vascular prominence demonstrated although this may be slightly improved. IMPRESSION: Persistent right upper lobe infiltrate and probable infiltrate left lung base. This could be due to pneumonia or asymmetric edema. Improved interstitial edema over one day Chest x-ray - 01/18/19 - Comparison: 01/16/2019 A single view chest radiograph was obtained. Findings: Developing pulmonary vascular congestion demonstrated. The heart is enlarged. Vascularity is more prominent. IMPRESSION: Development of CHF Chest x-ray - 01/19/19 - Procedure: XRAY Chest 1v Indication: Cough Comparison: 01/18/2019 A single view chest radiograph was obtained. Findings: Prominent pulmonary vascularity and heart size are demonstrated. Small pleural effusions are not excluded. IMPRESSION: Pulmonary vascular congestion. No significant change Microbiology Date/Time Source Procedure Growth Status 01/15/19 16:37 Blood Blood Culture - Final NO GROWTH AFTER 5 DAYS Complete 01/17/19 04:00 Sputum Induced Gram Stain - Final Complete 01/17/19 04:00 Sputum Induced Sputum Culture - Final NORMAL UPPER RESPIRATORY ALTHEA PRESENT Complete 01/15/19 16:14 Urine,Clean Catch Urine Culture - Final Escherichia Coli Complete Laboratory Tests Test 01/23/19 04:00 White Blood Count 5.7 K/UL (4.8-10.8) Red Blood Count 4.27 M/UL (4.20-5.40) Hemoglobin 11.6 G/DL (12.0-16.0) L Hematocrit 35.8 % (37.0-47.0) L Mean Corpuscular Volume 84 FL (80-99) Mean Corpuscular Hemoglobin 27.2 PG (27.0-31.0) Mean Corpuscular Hemoglobin Concent 32.4 G/DL (32.0-36.0) Red Cell Distribution Width 16.8 % (11.6-14.8) H Platelet Count 371 K/UL (150-450) Mean Platelet Volume 6.8 FL (6.5-10.1) Neutrophils (%) (Auto) 58.3 % (45.0-75.0) Lymphocytes (%) (Auto) 27.8 % (20.0-45.0) Monocytes (%) (Auto) 7.1 % (1.0-10.0) Eosinophils (%) (Auto) 5.9 % (0.0-3.0) H Basophils (%) (Auto) 0.9 % (0.0-2.0) Erythrocyte Sedimentation Rate 77 MM/HR (0-30) H Sodium Level 141 MMOL/L (136-145) Potassium Level 4.3 MMOL/L (3.5-5.1) Chloride Level 103 MMOL/L (98-107) Carbon Dioxide Level 33 MMOL/L (21-32) H Anion Gap 6 mmol/L (5-15) Blood Urea Nitrogen 10 mg/dL (7-18) Creatinine 0.5 MG/DL (0.55-1.30) L Estimat Glomerular Filtration Rate mL/min (>60) Glucose Level 100 MG/DL (74-106) Calcium Level 9.0 MG/DL (8.5-10.1) Total Bilirubin 0.3 MG/DL (0.2-1.0) Aspartate Amino Transf (AST/SGOT) 20 U/L (15-37) Alanine Aminotransferase (ALT/SGPT) 15 U/L (12-78) Alkaline Phosphatase 100 U/L (46-116) C-Reactive Protein, Quantitative 1.3 mg/dL (0.00-0.90) H Total Protein 7.6 G/DL (6.4-8.2) Albumin 2.2 G/DL (3.4-5.0) L Globulin 5.4 g/dL Albumin/Globulin Ratio 0.4 (1.0-2.7) L Current Medications Medications (Trade) Dose Ordered Sig/Mj Route PRN Reason Start Time Stop Time Status Last Admin Dose Admin Acetaminophen (Tylenol) 650 mg Q4H PRN ORAL Mild Pain/Temp > 100.5 01/21/19 05:00 02/15/19 04:59 01/23/19 11:17 Albuterol/ Ipratropium (Albuterol/ Ipratropium) 3 ml Q4H PRN HHN Shortness of Breath 01/22/19 18:45 01/27/19 18:44 01/23/19 10:45 Amlodipine Besylate (Norvasc) 5 mg DAILY ORAL 01/22/19 09:00 02/21/19 08:59 01/23/19 08:22 Atorvastatin Calcium (Lipitor) 10 mg BEDTIME ORAL 01/21/19 21:00 02/15/19 20:59 01/22/19 21:17 Baclofen (Lioresal) 10 mg THREE TIMES A DAY ORAL 01/21/19 09:00 02/15/19 08:59 01/23/19 13:46 Ceftriaxone Sodium 1 gm/ Dextrose 50 ml @ 100 mls/hr Q24H IVPB 01/21/19 16:00 01/26/19 15:59 01/22/19 17:02 Clonidine HCl (Catapres Tab) 0.1 mg EVERY 8 HOURS ORAL 01/22/19 14:00 02/21/19 13:59 01/23/19 07:00 Furosemide (Lasix) 20 mg DAILY ORAL 01/21/19 09:00 02/19/19 08:59 01/23/19 08:21 Guaifenesin/ Codeine Phosphate (Robitussin with codeine) 5 ml Q6H PRN ORAL For Cough 01/21/19 02:44 02/16/19 02:43 01/23/19 09:32 Hydralazine HCl (Apresoline) 10 mg Q6H PRN IV SBP >170 01/21/19 06:00 02/20/19 00:00 01/22/19 01:21 Lisinopril (Prinivil) 20 mg Q12HR ORAL 01/21/19 13:00 02/20/19 12:59 01/23/19 08:21 Metformin HCl (Glucophage) 500 mg TWICE A DAY ORAL 01/21/19 09:00 02/15/19 08:59 01/23/19 08:21 Pantoprazole (Protonix) 40 mg DAILY ORAL 01/21/19 09:00 02/15/19 08:59 01/23/19 08:21 Patient Own Medication (Patient's Own Med) 1 ea QOD SUBQ 01/22/19 09:00 02/17/19 08:59 01/22/19 08:29 Polyethylene Glycol (Miralax) 17 gm DAILY ORAL 01/22/19 09:00 02/21/19 08:59 01/23/19 08:22 Sodium Nitroprusside 50 mg/Dextrose 250 ml @ 0 mls/hr Q24H IV 01/21/19 03:00 02/20/19 02:59 01/22/19 02:04 Tizanidine HCl (Zanaflex) 4 mg THREE TIMES A DAY ORAL 01/21/19 09:00 02/15/19 08:59 01/23/19 13:46 Trazodone HCl (Desyrel) 100 mg BEDTIME PRN ORAL insomnia 01/21/19 02:35 02/19/19 02:34 01/22/19 21:27 Carroll Miller MD January 23, 2019 15:19
[2019-01-23] MEDS: cefTRIAXone 1 GM in D5W 50 ML IVPB SCH (15:31)
--- NOTE | 2019-01-23 17:00 | NUR ---
NURSE NOTES: Pt is resting in semi-maria's position, watching TV, with family at bedside. basketball referee displays NSR. Pt is observed to desaturate to low 90-89% when on nasal cannula at 3L, which then follows by increased SBP in 160s-180's, however when pt is switched to venturi mask FIO2 55% 15L, o2sat increases to 99% and BP lowers to 140's. Pt is unable to tolerate Venturi mask for long periods of time due to comfort reasons, and refuses to use it, requesting nasal cannula instead. Pt has been educated on the importance of maintaining O2sat above 90, and pt now verbalizes understadning. Barrios catheter continues to drain clear/yellow urine average of 100-150ml/hourly.
--- NOTE | 2019-01-23 17:39 | Cardiology Progress Note ---
Assessment/Plan Assessment/Plan 1. Hypotension, probably multifactorial, possibly volume related versus medication related (resolved) 2. Pneumonia. 3. Multiple sclerosis. 4. Diabetes mellitus. 5. Chronic suprapubic catheter. 6. Decubitus ulcers 7. MS (multiple sclerosis) 8. edema 9. Labiel htn blood cx neg sofar still urine cx postive off ivf on acie norvasc added and dose increaed echo report noted nomral lv fxn tele personally rev. sinus , borderline sinus tachy lasix extra dose Subjective Cardiovascular: Denies: chest pain, lightheadedness, palpitations Respiratory: Denies: shortness of breath Gastrointestinal/Abdominal: Denies: abdominal pain Genitourinary: Denies: burning Objective Last 24 Hour Vital Signs Date Time Temp Pulse Resp B/P (MAP) Pulse Ox O2 Delivery O2 Flow Rate FiO2 01/23/19 17:00 98 16 171/71 (104) 93 01/23/19 16:00 95 18 134/65 (88) 92 01/23/19 16:00 98 01/23/19 16:00 Nasal Cannula 2.0 01/23/19 15:30 129/62 01/23/19 15:00 95 15 129/62 (84) 95 01/23/19 14:45 98.0 01/23/19 14:00 108 18 111/48 (69) 93 01/23/19 13:00 104 19 158/68 (98) 92 01/23/19 12:00 101 01/23/19 12:00 97.9 97 18 134/63 (86) 97 01/23/19 12:00 Nasal Cannula 2.0 01/23/19 11:47 98.0 01/23/19 11:00 115 20 183/84 (117) 93 01/23/19 10:46 98 22 100 Nasal Cannula 2.0 28 01/23/19 10:30 98 22 100 Nasal Cannula 2.0 28 01/23/19 10:00 97 18 106/55 (72) 100 01/23/19 09:00 106 16 169/72 (104) 97 01/23/19 08:22 98 141/54 01/23/19 08:21 141/54 01/23/19 08:00 Nasal Cannula 2.0 01/23/19 08:00 99 01/23/19 08:00 97.8 98 17 141/54 (83) 100 01/23/19 07:15 97 Nasal Cannula 2.0 28 01/23/19 07:15 Nasal Cannula 2.0 28 01/23/19 07:00 143/54 01/23/19 07:00 105 18 138/65 (89) 99 01/23/19 06:00 98 16 143/54 (83) 100 01/23/19 05:00 99 19 146/61 (89) 100 01/23/19 04:00 98.0 108 140/62 (88) 96 01/23/19 04:00 97 01/23/19 04:00 Nasal Cannula 2.0 01/23/19 03:17 96 Nasal Cannula 2.0 28 01/23/19 03:17 Nasal Cannula 2.0 28 01/23/19 03:00 97 19 141/62 (88) 96 01/23/19 02:00 102 16 133/66 (88) 95 01/23/19 01:00 97 17 149/71 (97) 95 01/23/19 00:00 97.9 97 18 155/69 (97) 97 01/23/19 00:00 100 01/23/19 00:00 Nasal Cannula 2.0 01/22/19 23:00 95 16 147/63 (91) 97 01/22/19 22:00 99 19 146/73 (97) 97 01/22/19 21:17 143/72 01/22/19 21:17 143/72 01/22/19 21:00 95 18 143/72 (95) 99 01/22/19 20:00 104 01/22/19 20:00 98.5 104 18 154/76 (102) 98 01/22/19 20:00 Nasal Cannula 2.0 01/22/19 19:00 92 20 119/56 (77) 100 01/22/19 18:00 87 17 130/57 (81) 99 General Appearance: no apparent distress, alert Neck: supple Cardiovascular: regular rhythm Respiratory/Chest: lungs clear - ant Abdomen: normal bowel sounds, non tender, soft Extremities: no swelling Intake and Output 01/22/19 01/23/19 19:00 07:00 Intake Total 712.580 ml 720 ml Output Total 840 ml 780 ml Balance -127.420 ml -60 ml Intake Oral 600 ml 720 ml IV Total 112.580 ml Output Urine Total 840 ml 780 ml # Bowel Movements 2 Laboratory Tests Test 01/23/19 04:00 White Blood Count 5.7 K/UL (4.8-10.8) Red Blood Count 4.27 M/UL (4.20-5.40) Hemoglobin 11.6 G/DL (12.0-16.0) L Hematocrit 35.8 % (37.0-47.0) L Mean Corpuscular Volume 84 FL (80-99) Mean Corpuscular Hemoglobin 27.2 PG (27.0-31.0) Mean Corpuscular Hemoglobin Concent 32.4 G/DL (32.0-36.0) Red Cell Distribution Width 16.8 % (11.6-14.8) H Platelet Count 371 K/UL (150-450) Mean Platelet Volume 6.8 FL (6.5-10.1) Neutrophils (%) (Auto) 58.3 % (45.0-75.0) Lymphocytes (%) (Auto) 27.8 % (20.0-45.0) Monocytes (%) (Auto) 7.1 % (1.0-10.0) Eosinophils (%) (Auto) 5.9 % (0.0-3.0) H Basophils (%) (Auto) 0.9 % (0.0-2.0) Erythrocyte Sedimentation Rate 77 MM/HR (0-30) H Sodium Level 141 MMOL/L (136-145) Potassium Level 4.3 MMOL/L (3.5-5.1) Chloride Level 103 MMOL/L (98-107) Carbon Dioxide Level 33 MMOL/L (21-32) H Anion Gap 6 mmol/L (5-15) Blood Urea Nitrogen 10 mg/dL (7-18) Creatinine 0.5 MG/DL (0.55-1.30) L Estimat Glomerular Filtration Rate mL/min (>60) Glucose Level 100 MG/DL (74-106) Calcium Level 9.0 MG/DL (8.5-10.1) Total Bilirubin 0.3 MG/DL (0.2-1.0) Aspartate Amino Transf (AST/SGOT) 20 U/L (15-37) Alanine Aminotransferase (ALT/SGPT) 15 U/L (12-78) Alkaline Phosphatase 100 U/L (46-116) C-Reactive Protein, Quantitative 1.3 mg/dL (0.00-0.90) H Total Protein 7.6 G/DL (6.4-8.2) Albumin 2.2 G/DL (3.4-5.0) L Globulin 5.4 g/dL Albumin/Globulin Ratio 0.4 (1.0-2.7) L Krishna Perry MD January 23, 2019 17:39
--- NOTE | 2019-01-23 18:00 | NUR ---
NURSE NOTES: Pt was cleaned, dressings changed, oral care given, and pt repositioned. Pt is resting comfortably in stable condition.
--- NOTE | 2019-01-23 19:28 | NUR ---
HAND-OFF: Report given to Trinity STATON. Endorsed plan of care.
--- NOTE | 2019-01-23 19:29 | NUR ---
NURSE NOTES: Endorsement received from SHEMAR Rivera. Patient alert and oriented x4. Able to communicate needs. On 15 L venturi mask. With right wrist g20 and left hand g24 heplock. No resistance when flushed. With suprapubic catheter connected to urine bag. On P200 mattress, bariatric bed. Bed locked and in low position. Call light within reach.
--- NOTE | 2019-01-23 19:33 | Cardiology Report ---
APPROVED REPORT EKG Measurement Heart [id number] Sinus tachycardia Left axis deviation Nonspecific ST abnormality Abnormal ECG
--- NOTE | 2019-01-23 19:54 | Cardiology Report ---
APPROVED REPORT EKG Measurement Heart [id number] Sinus tachycardia Left axis deviation Cannot rule out Anterior infarct, age undetermined T wave abnormality, consider lateral ischemia Abnormal ECG
--- NOTE | 2019-01-23 20:00 | NUR ---
NURSE NOTES: Patient refusing the venti mask, as per her it's uncomfortable. Explained risks and benefits. started on 4LPM oxygen per nasal cannula. Offered SCDs, also refused. Risks and benefits explained, still refused. Patient's rights respected.
--- NOTE | 2019-01-23 22:00 | NUR ---
NURSE NOTES: Patient refused to be repositioned at this time. Risks and benefits explained, still refused.
[2019-01-24] VITALS (25 sets, daily range): BP systolic 97–165; BP diastolic 49–86
--- NOTE | 2019-01-24 | NUR ---
NURSE NOTES: Patient awake. Allowed to be repositioned. Bed bath, pericare, change of gown done. No shortness of breath.
--- NOTE | 2019-01-24 02:00 | NUR ---
NURSE NOTES: Patient asleep. Still on 4LPM oxygen per nasal cannula. With episodes of coughing, refused to be suctioned.
--- NOTE | 2019-01-24 03:00 | NUR ---
NURSE NOTES: Endorsement received from Trinity Chambers RN. Patient alert and oriented x4. Able to communicate needs. On 12 L venturi mask. With right wrist g20 and left hand g24 heplock. No resistance when flushed. With suprapubic catheter connected to urine bag. On P200 mattress, bariatric bed. Bed locked and in low position. Call light within reach.
--- NOTE | 2019-01-24 03:04 | NUR ---
HAND-OFF: Report given to SHEMAR Nuñez for continuity of care.
--- NOTE | 2019-01-24 04:00 | NUR ---
NURSE NOTES: Patients saturations fluctuates at times. patient desaturated earlier and placed on Venturi mask 45% FiO2. Patients saturating now at 92%. AM labs were drawn and sent. No acute distress at this time. BP has remained stable, afebrile. Patient currently sleeping.
[2019-01-24 05:33] LABS: EOSINOPHILS % (AUTO) 3.2 % (0.0-3.0); HEMATOCRIT 36.7 % (37.0-47.0); HEMOGLOBIN 11.8 G/DL (12.0-16.0); LYMPHOCYTES % (AUTO) 21.6 % (20.0-45.0); MEAN CORPUSCULAR VOLUME 85 FL (80-99); MONOCYTES % (AUTO) 3.4 % (1.0-10.0); NEUTROPHILS % (AUTO) 70.8 % (45.0-75.0); PLATELET COUNT 428 K/UL (150-450); RED BLOOD COUNT 4.33 M/UL (4.20-5.40); RED CELL DISTRIBUTION WIDTH 16.9 % (11.6-14.8); WHITE BLOOD COUNT 7.7 K/UL (4.8-10.8)
--- NOTE | 2019-01-24 06:00 | NUR ---
NURSE NOTES: Patient cleaned and made fresh. New linens applied. IV lines remains working patently. Saturating fluctuates but right now its at 92%. Switch back from venturi to Nasal cannula at 4L. No SOB. Afebrile, SR on the monitor. Seems relaxed and content at this time.
[2019-01-24 06:06] LABS: ALANINE AMINOTRANSFERASE 16 U/L (12-78); ALBUMIN 2.6 G/DL (3.4-5.0); ALBUMIN/GLOBULIN RATIO 0.5 (1.0-2.7); ALKALINE PHOSPHATASE 109 U/L (46-116); ANION GAP 4 mmol/L (5-15); ASPARTATE AMINO TRANSFERASE 13 U/L (15-37); BILIRUBIN,TOTAL 0.2 MG/DL (0.2-1.0); BLOOD UREA NITROGEN 16 mg/dL (7-18); CALCIUM 9.7 MG/DL (8.5-10.1); CARBON DIOXIDE 36 MMOL/L (21-32); CHLORIDE 101 MMOL/L (98-107); CREATININE 0.6 MG/DL (0.55-1.30); POTASSIUM 4.3 MMOL/L (3.5-5.1); SODIUM 141 MMOL/L (136-145)
--- NOTE | 2019-01-24 07:07 | NUR ---
HAND-OFF: Report given to Nicole STATON.
--- NOTE | 2019-01-24 07:10 | NUR ---
NURSE NOTES: Received pt and change of shift report from Joaquin STATON. Pt is asleep in semi-maria's position, awakens to name/voice, oriented x4. Received pt on 4L of oxygen via nasal cannula with oxygen saturation fluctuating from 88-90%; pt is currently refusing the venturi mask. Bilateral rhonchi heard on auscultation, and audible severe congestion present when pt speaks. Pt has productive cough, pt suctioned orally with output of thick white sputum. laboratory monitor displays SR with heart rate fluctuating in the upper 90's, and BP 148/60. Bounding radial and pedal pulses present on palpation on extremities. Bilateral upper extremities and feet edema noted. Peripheral IV access present on right wrist #20G and left hand #24G, both saline locks, patent/intact. Abdomen is large, round, soft/nontender to touch, with hyperactive bowel sounds heard on auscultation. Last BM yesterday. Barrios catheter is in place, draining clear/yellow urine. Skin has sacral small partial thickness wound covered with optifoam dressing and bilateral heel erythema covered with optifoam dressing, bilateral upper thigh brown hyperpigmentation and skin tags/carroll noted. Pt is on aspiration and fall precautions, and is placed on bariatric bed with three side rails up, brakes engaged, alarm on and call light within easy reach. Will continue to monitor pt and follow plan of care per MD orders and protocol.
[2019-01-24] MEDS: Lisinopril 20mg tab ORAL SCH ×2 (08:17→21:13)
[2019-01-24] MEDS: metFORMIN 500mg tab ORAL SCH ×2 (08:18→18:12)
[2019-01-24] MEDS: Miralax 17gm pkt ORAL SCH (08:26)
--- NOTE | 2019-01-24 09:00 | NUR ---
NURSE NOTES: RT at bedside, pt is severely congested and was suctioned nasotracheally via bilateral nares, with output of large blood-tinged thick sputum. Currently placed on nonrebreather due to severe desaturation to 70's%. SBP was in the 170's after desaturation, however now is in the 130s as saturation is improving to upper 80's-90.
[2019-01-24] MEDS: BETASERON SUBQ SCH (09:24)
--- NOTE | 2019-01-24 10:12 | Diagnostic Imaging Report ---
Indication: Dyspnea Comparison: 01/19/2019 A single view chest radiograph was obtained. Findings: There is a fairly large focus of lucency at the right lung base. This was not seen previously. The patient does not have interposition of bowel on any of the prior studies and therefore it is not likely that this is bowel, but rather a lucency developing within the right lung base or pleura which is concerning. Hazy opacities are noted at both lung bases presumably pleural effusions. There is moderate degree of interstitial edema with prominent pulmonary vascularity and heart size. IMPRESSION: Development of a unusual lucency at the right lung base. Query cavitary lesion, not seen previously. Further evaluation with CT is recommended. Bilateral pleural effusions. Worsening CHF
--- NOTE | 2019-01-24 11:00 | NUR ---
NURSE NOTES: Pt remains on a nonrebreather mask with O2sat at 92-95%. Head of bed positioned at high maria's. Pt had audible evidence of severe congestion and was suctioned via nasotracheal route, with output of moderate amount of blood-tinged thick sputum. sr. consultant displays ST with heart rate fluctuating from 100-110's. Barrios catheter continues to drain clear/yellow urine at 80-110ml/hourly. Extremities elevated on pillows. Pt remains afebrile. Currently denies any pain. Will continue to monitor.
--- NOTE | 2019-01-24 11:53 | NUR ---
CT CHEST COMPLETED.
--- NOTE | 2019-01-24 12:25 | Pulmonology Progress Note ---
Assessment/Plan Assessment/Plan 1. Pneumonia 2. UTI with chronic suprapubic catheter, e coli 3. Multiple sclerosis. 4. Sinus tachycardia 5. Diabetes. 6. Hyponatremia. 7. Neurogenic bladder. 8. Hypertension. 9. Hyperlipidemia. BP still high at times low sat, now on nonrebreather CXR with new ?cavity CT ordered Subjective Respiratory: Reports: shortness of breath Allergies: Coded Allergies: SULFA (SULFONAMIDE ANTIBIOTICS) (Verified Allergy, Unknown, 11/22/17) Objective Last 24 Hour Vital Signs Date Time Temp Pulse Resp B/P (MAP) Pulse Ox O2 Delivery O2 Flow Rate FiO2 01/24/19 12:00 107 23 126/57 (80) 95 01/24/19 12:00 Venturi Mask 12.0 01/24/19 11:00 102 20 132/61 (84) 94 01/24/19 10:00 104 23 130/64 (86) 93 01/24/19 09:18 99.3 01/24/19 09:00 97 19 139/82 (101) 97 01/24/19 08:18 98 148/60 01/24/19 08:17 148/60 01/24/19 08:00 94 01/24/19 08:00 Venturi Mask 12.0 01/24/19 08:00 98.5 102 17 148/60 (89) 86 01/24/19 07:00 90 16 100/49 (66) 88 01/24/19 07:00 85 18 100/49 (66) 92 01/24/19 06:00 86 16 155/74 (101) 91 01/24/19 05:53 144/51 01/24/19 05:00 94 19 144/51 (82) 90 01/24/19 04:00 Venturi Mask 12.0 01/24/19 04:00 94 01/24/19 04:00 99.3 102 18 165/86 (112) 87 01/24/19 03:00 95 16 138/63 (88) 96 01/24/19 02:00 94 16 138/63 (88) 95 01/24/19 01:00 94 16 136/58 (84) 96 01/24/19 00:00 98.5 99 16 134/69 (90) 95 01/24/19 00:00 92 01/24/19 00:00 Nasal Cannula 4.0 01/23/19 23:00 99 16 154/84 (107) 96 01/23/19 22:31 134/69 01/23/19 22:00 93 16 134/69 (90) 96 01/23/19 21:00 92 16 156/67 (96) 96 01/23/19 20:25 138/71 01/23/19 20:00 Nasal Cannula 4.0 01/23/19 20:00 93 01/23/19 20:00 98.8 94 17 138/71 (93) 95 01/23/19 19:30 93 17 95 Nasal Cannula 4.0 36 01/23/19 19:29 Nasal Cannula 4.0 36 01/23/19 19:29 96 Nasal Cannula 4.0 36 01/23/19 19:00 92 18 139/69 (92) 97 01/23/19 18:51 98 171/71 01/23/19 18:00 102 21 167/74 (105) 93 01/23/19 17:00 98 16 171/71 (104) 93 01/23/19 16:00 95 18 134/65 (88) 92 01/23/19 16:00 98 01/23/19 16:00 Nasal Cannula 2.0 01/23/19 15:30 129/62 01/23/19 15:00 95 15 129/62 (84) 95 01/23/19 14:00 108 18 111/48 (69) 93 01/23/19 13:00 104 19 158/68 (98) 92 Intake and Output 01/23/19 01/24/19 19:00 07:00 Intake Total 240 ml 50 ml Output Total 1370 ml 1415 ml Balance -1130 ml -1365 ml Intake Oral 240 ml 50 ml Output Urine Total 1370 ml 1415 ml # Bowel Movements 3 Objective obese General Appearance: no acute distress Respiratory/Chest: decreased breath sounds Cardiovascular: normal rate Laboratory Tests 01/24/19 04:20: White Blood Count 7.7, Red Blood Count 4.33, Hemoglobin 11.8L, Hematocrit 36.7L , Mean Corpuscular Volume 85, Mean Corpuscular Hemoglobin 27.3, Mean Corpuscular Hemoglobin Concent 32.2, Red Cell Distribution Width 16.9H, Platelet Count 428, Mean Platelet Volume 6.6, Neutrophils (%) (Auto) 70.8, Lymphocytes (%) (Auto) 21.6, Monocytes (%) (Auto) 3.4, Eosinophils (%) (Auto) 3.2H, Basophils (%) (Auto) 1.0, Sodium Level 141, Potassium Level 4.3, Chloride Level 101, Carbon Dioxide Level 36H, Anion Gap 4L, Blood Urea Nitrogen 16, Creatinine 0.6, Estimat Glomerular Filtration Rate , Glucose Level 100, Calcium Level 9.7, Magnesium Level 1.8, Total Bilirubin 0.2, Aspartate Amino Transf (AST /SGOT) 13L, Alanine Aminotransferase (ALT/SGPT) 16, Alkaline Phosphatase 109, Total Protein 8.0, Albumin 2.6L, Globulin 5.4, Albumin/Globulin Ratio 0.5L Current Medications Medications (Trade) Dose Ordered Sig/Mj Route PRN Reason Start Time Stop Time Status Last Admin Dose Admin Acetaminophen (Tylenol) 650 mg Q4H PRN ORAL Mild Pain/Temp > 100.5 01/21/19 05:00 02/15/19 04:59 01/23/19 11:17 Albuterol/ Ipratropium (Albuterol/ Ipratropium) 3 ml Q4H PRN HHN Shortness of Breath 01/22/19 18:45 01/27/19 18:44 01/23/19 10:45 Amlodipine Besylate (Norvasc) 5 mg BID ORAL 01/23/19 18:00 02/22/19 17:59 01/24/19 08:18 Atorvastatin Calcium (Lipitor) 10 mg BEDTIME ORAL 01/21/19 21:00 02/15/19 20:59 01/23/19 20:25 Baclofen (Lioresal) 10 mg THREE TIMES A DAY ORAL 01/21/19 09:00 02/15/19 08:59 01/24/19 08:18 Ceftriaxone Sodium 1 gm/ Dextrose 50 ml @ 100 mls/hr Q24H IVPB 01/21/19 16:00 01/26/19 15:59 01/23/19 15:31 Clonidine HCl (Catapres Tab) 0.1 mg EVERY 8 HOURS ORAL 01/22/19 14:00 02/21/19 13:59 01/24/19 05:53 Furosemide (Lasix) 20 mg EVERY 12 HOURS IV 01/23/19 17:45 02/22/19 17:44 01/24/19 08:17 Guaifenesin/ Codeine Phosphate (Robitussin with codeine) 5 ml Q6H PRN ORAL For Cough 01/21/19 02:44 02/16/19 02:43 01/23/19 21:21 Hydralazine HCl (Apresoline) 10 mg Q6H PRN IV SBP >170 01/21/19 06:00 02/20/19 00:00 01/22/19 01:21 Lisinopril (Prinivil) 20 mg Q12HR ORAL 01/21/19 13:00 02/20/19 12:59 01/24/19 08:17 Metformin HCl (Glucophage) 500 mg TWICE A DAY ORAL 01/21/19 09:00 02/15/19 08:59 01/24/19 08:18 Pantoprazole (Protonix) 40 mg DAILY ORAL 01/21/19 09:00 02/15/19 08:59 01/24/19 08:19 Patient Own Medication (Patient's Own Med) 1 ea QOD SUBQ 01/22/19 09:00 02/17/19 08:59 01/24/19 09:24 Polyethylene Glycol (Miralax) 17 gm DAILY ORAL 01/22/19 09:00 02/21/19 08:59 01/23/19 08:22 Sodium Nitroprusside 50 mg/Dextrose 250 ml @ 0 mls/hr Q24H IV 01/21/19 03:00 02/20/19 02:59 01/22/19 02:04 Tizanidine HCl (Zanaflex) 4 mg THREE TIMES A DAY ORAL 01/21/19 09:00 02/15/19 08:59 01/24/19 08:19 Trazodone HCl (Desyrel) 100 mg BEDTIME PRN ORAL insomnia 01/21/19 02:35 02/19/19 02:34 01/22/19 21:27 Robb Quiroz MD January 24, 2019 12:25
--- NOTE | 2019-01-24 12:27 | Diagnostic Imaging Report ---
Indication: Abnormal chest x-ray. Lucency at the right lung base. Technique: Continuous helical transaxial imaging of the chest was obtained from the thoracic inlet to the upper abdomen. No intravenous contrast was administered. Coronal 2-D reformats were also obtained. Total Dose length Product (DLP): 1206.[address] Dose Index Volume (CTDIvol): 35.79 mGy Comparison: CTA chest 11/23/2017. Multiple recent chest x-rays. Findings: There is a focus of a intraparenchymal, right basilar hyperlucency measuring about 8.5 x 4 x 3.7 cm. This is an area of focal bullous emphysema and was seen on the previous CTA dated 11/23/2017. The increased conspicuity of this lucency on recent chest x-ray is due to the inherent contrast between the lucent lesion, pleural effusion, adjacent consolidation and edematous lung above none of which were present to this degree on previous x-rays. Groundglass opacities noted throughout both lung rosales due to pulmonary edema. There is a small left pleural effusion as well. There is considerable consolidation involving the right lower lobe which may be due to pneumonia or atelectasis. Other paraseptal blebs and emphysematous changes are noted within the lungs especially in the upper lobes. Aorta is mildly calcified. Heart is enlarged. There is a moderate size hiatal hernia. There is a nonobstructive stone in the left kidney noted. IMPRESSION: Large area of focal bullous emphysema involving the right lung base accounting for the lucency demonstrated on the recent chest x-ray. Generalized emphysema noted within the lungs especially in the upper lobes. Pulmonary edema. Bilateral pleural effusions larger on the right compared to left. Posterior basilar atelectasis and/or pneumonia. The CT scanner at [facility] is accredited by the [employer] and the scans are performed using dose optimization techniques as appropriate to a performed exam including Automatic Exposure control.
--- NOTE | 2019-01-24 12:30 | NUR ---
NURSE NOTES: Pt is on a nonrebreather mask with O2Sat now at 94%. Chest xray result from this morning was reported to Dr Quiroz. STAT CT of the chest without contrast has been received. Order was processed and pt taken down to CT. Pt tolerated procedure well and is now back in ICU bed H. CT test result was reported to Dr Quiroz and order received for Lasix 40mg IVP x1 and thoracentesis. Order will be processed and followed. Addendum: 01/24/19 at 1644 by PARVEEN ATKINS RN NURSE NOTES: Dr Quiroz was informed regarding cancellation of thoracentesis that was ordered today. Per Gemma, master control technician, the radiologist stated that "not enough fluid is evident on ultrasound" and there is "high risk for pneumothorax".
--- NOTE | 2019-01-24 13:00 | NUR ---
NURSE NOTES: Pt had x1 episode of large BM, brown/soft/formed. Pt was cleaned and repositioned; extremities elevated with pillows. Also oral care given after one to one feeding of lunch. Pt consumed 75% of lunch, tolerated well with no s/s of aspiration or nausea/vomiting. VS stable while pt is on nonrebreather mask. Barrios catheter continues to drain clear/yellow urine.
--- NOTE | 2019-01-24 13:14 | NUR ---
*-* INSURANCE *-* UPDATED CLINICALS AND REVIEW HAVE BEEN FAXED TO: [facility] ..SHE WILL HANDLE THIS ADMISSION.. P- [phone] F- [phone].....REVIEW/CLINICAL
--- NOTE | 2019-01-24 14:15 | Diagnostic Imaging Report ---
Indications: Pleural effusion Technique: Ultrasound of the chest performed bilaterally. Findings: Trace left pleural effusion and small right pleural effusion are noted. The deepest pocket is has a depth of about 1.5 cm on the right. IMPRESSION: Small right pleural effusion
--- NOTE | 2019-01-24 14:15 | NUR ---
NURSE NOTES: Pt's wound-dressings were changed. Oral care given and pt repositioned. VS stable. Pt resting comfortably.
--- NOTE | 2019-01-24 14:40 | Surgery Progress Note ---
Surgery Progress Note Subjective Additional Comments still with low O2. CXR noted CT noted. US chest noted. labs stable exam unchanged. Objective Last 24 Hour Vital Signs Date Time Temp Pulse Resp B/P (MAP) Pulse Ox O2 Delivery O2 Flow Rate FiO2 01/24/19 14:17 128/66 01/24/19 14:00 102 21 128/66 (86) 97 01/24/19 13:00 103 22 117/55 (75) 93 01/24/19 12:00 98.5 107 23 126/57 (80) 95 01/24/19 12:00 Venturi Mask 12.0 01/24/19 11:00 102 20 132/61 (84) 94 01/24/19 10:00 104 23 130/64 (86) 93 01/24/19 09:18 99.3 01/24/19 09:00 97 19 139/82 (101) 97 01/24/19 08:18 98 148/60 01/24/19 08:17 148/60 01/24/19 08:00 94 01/24/19 08:00 Venturi Mask 12.0 01/24/19 08:00 98.5 102 17 148/60 (89) 86 01/24/19 07:00 90 16 100/49 (66) 88 01/24/19 07:00 85 18 100/49 (66) 92 01/24/19 06:00 86 16 155/74 (101) 91 01/24/19 05:53 144/51 01/24/19 05:00 94 19 144/51 (82) 90 01/24/19 04:00 Venturi Mask 12.0 01/24/19 04:00 94 01/24/19 04:00 99.3 102 18 165/86 (112) 87 01/24/19 03:00 95 16 138/63 (88) 96 01/24/19 02:00 94 16 138/63 (88) 95 01/24/19 01:00 94 16 136/58 (84) 96 01/24/19 00:00 98.5 99 16 134/69 (90) 95 01/24/19 00:00 92 01/24/19 00:00 Nasal Cannula 4.0 01/23/19 23:00 99 16 154/84 (107) 96 01/23/19 22:31 134/69 01/23/19 22:00 93 16 134/69 (90) 96 01/23/19 21:00 92 16 156/67 (96) 96 01/23/19 20:25 138/71 01/23/19 20:00 Nasal Cannula 4.0 01/23/19 20:00 93 01/23/19 20:00 98.8 94 17 138/71 (93) 95 01/23/19 19:30 93 17 95 Nasal Cannula 4.0 36 01/23/19 19:29 Nasal Cannula 4.0 36 01/23/19 19:29 96 Nasal Cannula 4.0 36 01/23/19 19:00 92 18 139/69 (92) 97 01/23/19 18:51 98 171/71 01/23/19 18:00 102 21 167/74 (105) 93 01/23/19 17:00 98 16 171/71 (104) 93 01/23/19 16:00 95 18 134/65 (88) 92 01/23/19 16:00 98 01/23/19 16:00 Nasal Cannula 2.0 01/23/19 15:30 129/62 01/23/19 15:00 95 15 129/62 (84) 95 I&O Intake and Output 01/23/19 01/24/19 19:00 07:00 Intake Total 240 ml 50 ml Output Total 1370 ml 1415 ml Balance -1130 ml -1365 ml Intake Oral 240 ml 50 ml Output Urine Total 1370 ml 1415 ml # Bowel Movements 3 Dressing: saturated Wound: clean Drains: other Cardiovascular: RSR Respiratory: clear, decreased breath sounds Abdomen: soft, present bowel sounds, non-distended Extremities: no tenderness, no cyanosis Laboratory Tests Test 01/24/19 04:20 White Blood Count 7.7 K/UL (4.8-10.8) Red Blood Count 4.33 M/UL (4.20-5.40) Hemoglobin 11.8 G/DL (12.0-16.0) L Hematocrit 36.7 % (37.0-47.0) L Mean Corpuscular Volume 85 FL (80-99) Mean Corpuscular Hemoglobin 27.3 PG (27.0-31.0) Mean Corpuscular Hemoglobin Concent 32.2 G/DL (32.0-36.0) Red Cell Distribution Width 16.9 % (11.6-14.8) H Platelet Count 428 K/UL (150-450) Mean Platelet Volume 6.6 FL (6.5-10.1) Neutrophils (%) (Auto) 70.8 % (45.0-75.0) Lymphocytes (%) (Auto) 21.6 % (20.0-45.0) Monocytes (%) (Auto) 3.4 % (1.0-10.0) Eosinophils (%) (Auto) 3.2 % (0.0-3.0) H Basophils (%) (Auto) 1.0 % (0.0-2.0) Sodium Level 141 MMOL/L (136-145) Potassium Level 4.3 MMOL/L (3.5-5.1) Chloride Level 101 MMOL/L (98-107) Carbon Dioxide Level 36 MMOL/L (21-32) H Anion Gap 4 mmol/L (5-15) L Blood Urea Nitrogen 16 mg/dL (7-18) Creatinine 0.6 MG/DL (0.55-1.30) Estimat Glomerular Filtration Rate mL/min (>60) Glucose Level 100 MG/DL (74-106) Calcium Level 9.7 MG/DL (8.5-10.1) Magnesium Level 1.8 MG/DL (1.8-2.4) Total Bilirubin 0.2 MG/DL (0.2-1.0) Aspartate Amino Transf (AST/SGOT) 13 U/L (15-37) L Alanine Aminotransferase (ALT/SGPT) 16 U/L (12-78) Alkaline Phosphatase 109 U/L (46-116) Total Protein 8.0 G/DL (6.4-8.2) Albumin 2.6 G/DL (3.4-5.0) L Globulin 5.4 g/dL Albumin/Globulin Ratio 0.5 (1.0-2.7) L Plan Problems: (1) Decubital ulcer Assessment & Plan: Pt presented on admission with multiple ,Pressure injuries, MASD bilateral breasts folds, abd folds, bilateral groin and medial aspects of both thighs. Erythema with denuded skin noted to affected areas. Moisture intertrigo noted to R groin. Scattered Nevi noted to back and medial aspects of both upper thighs.Pt also noted to have numerous skin tags medial upper thighs. Resolving pressure injury noted to sacral area.Base of wound with pink epithelial with surrounding hyperpigmentation .Small wound noted at sacrococcygeal area(L)1.0cm x (W)0.9cm. Base of wound is moist and viable. Hyperpigmentation from previous pressure injury noted in crevices of skin R ischium. Caregiver at bedside and stated pt has Hx of Recurrent pressure injuries to sacrum and R ischium.Hyperpigmentation noted to L ischium. L heel boggy with non-blanchable erythema non-tender when palpated. Non-blanchable erythema with fluctuance at base medial aspect of R heel. (L) 1.5cm x (W)2.3cm Edemae and Foot drop noted to both feet. Eschar with surrounding erythema noted to R 1st metatarsal head. Small amt purulent exudate noted when wound minimally palpated. Small partial thickness ulcers without exudate noted to dorsum of R 2nd,3rd,4th and 5th metatarsals.Wounds are erythematous at base .Periwound metatarsals are pale and shiny. Tx.Plan: Wash skin folds of both breasts and abd folds with soap and water. Apply Light dusting of Antifungal powder every shift. Apply Triad Paste to buttocks both ischial areas, bilat groin and medial / posterior aspects of both upper thighs with each incontinence care. Apply Triad Paste to sacrum.Cover with Optifoam drsg. Change every 3 days and prn. Swab R 1st metatarsal head with Betadine. Cover with Optifoam drsg Daily and prn. Apply Cavilon to both heels .Cover each heel with Optifoam drsg.Change every 7 days and prn. Apply Betadine to dorsals of 2nd,3rd,4th and 5th metatarsals. Bariatric bed with Air fluidized mattress. Reposition at least every 2hours or as tolerated. Off-load heels with pillow. (2) Multiple sclerosis (3) Obstipation Assessment & Plan: abdomen distended KUB noted and okay exam without tenderness decreased bowel sounds cont with diet will follow with exam (4) Urinary tract infection (5) Hypoxemia (6) Tachycardia (7) Pneumonia Assessment & Plan: Large area of focal bullous emphysema involving the right lung base accounting for the lucency demonstrated on the recent chest x-ray. Generalized emphysema noted within the lungs especially in the upper lobes. Pulmonary edema. Bilateral pleural effusions larger on the right compared to left. Posterior basilar atelectasis and/or pneumonia. (8) Obesities, morbid Assessment & Plan: DAILY ESTIMATED NEEDS: Needs based on Pulmonary, obese 78kg adj 20-25 kcals/kg 7823-9314 total kcals 1-1.5 g protein/kg 78-117 g total protein Fluid per MD, on lasix NUTRITION DIAGNOSIS: 1) Decreased sodium and fat intake needs R/T cardiac hx, PNA as evidenced by on diuretics, HTN, BMI >40, pt is @191% [place] Body Weight. 2) Self feeding difficulty r/t MS as evidenced by pt w/ BL UE contractures, requires 1:1 feedings. PO DIET RECOMMENDATIONS: Cardiac, CCHO MED (texture per COMPLEX MANAGER) ---- ADDITIONAL RECOMMENDATIONS: 1) COMPLEX MANAGER eval for appropriate texture (h/o MS w/ contractures, need for 1:1) 2) Wound Care: photos noted, pending MD eval 3) A1C for eval (need for diet change to ccho low w/ 2x prot) 4) Check lytes daily on lasix, replete as needed (Mg 1.6) (9) Encounter for generalized patient complaints John Toledo January 24, 2019 14:40
--- NOTE | 2019-01-24 16:00 | NUR ---
NURSE NOTES: Pt is asleep, awakens to name/voice, with stable vital signs while on nonrebreather mask O2sat 95% with NSR on tests superintendent. Head of bed at high maria's. Temp 98.3F axillary. Barrios catheter continues to drain clear/yellow urine with average of 80-120ml/hourly. No signs/symptoms or reports of pain at this time.
[2019-01-24] MEDS: cefTRIAXone 1 GM in D5W 50 ML IVPB SCH (16:29)
--- NOTE | 2019-01-24 16:53 | NUR ---
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 UTI E-COLI VS: BP 97/49, P 103, T 98.3, RR 22, SpO2 88 on VENTURI MASK 12.0L CHEST CT: Large area of focal bullous emphysema involving the right lung base. Pulmonary edema. Posterior basilar atelectasis and/or pneumonia. CHEST US: Small right pleural effusion IS:CEFTRIAXONE 50ml IVPB ZANAFLEX 4mg CLONIDINE 0.1mg METFORMIN 50mg NORVASC 5mg LISINOPRIL 20mg LASIX 20mg IV ICU STATUS
--- NOTE | 2019-01-24 18:00 | NUR ---
NURSE NOTES: Pt's caregiver at bedside, pt was fed with dinner following aspiration precautions. Pt consumed 50% of dinner, with no s/s of aspiration or nausea/vomiting noted or reported. While feeding dinner, pt was placed on nasal cannula at 6L of oxygen, with O2sat fluctuating from 94-98%. After dinner, pt refused the venturi and nonrebreather masks. Currently remains on nasal cannula. Pt requesting Tylenol for mild mid-abdominal discomfort. Pt was repositioned and now resting in stable condition.
--- NOTE | 2019-01-24 19:13 | Cardiology Progress Note ---
Assessment/Plan Assessment/Plan 1. Hypotension, probably multifactorial, possibly volume related versus medication related (resolved) 2. Pneumonia. 3. Multiple sclerosis. 4. Diabetes mellitus. 5. Chronic suprapubic catheter. 6. Decubitus ulcers 7. MS (multiple sclerosis) 8. edema 9. Labiel htn blood cx neg sofar still urine cx postive off ivf on acie norvasc added and dose increaed echo report noted nomral lv fxn tele personally rev. sinus iv lasix atc watch bp in icu Subjective ROS Limited/Unobtainable: Yes Subjective no new issue per rn not like fm now on nc but high flow Objective Last 24 Hour Vital Signs Date Time Temp Pulse Resp B/P (MAP) Pulse Ox O2 Delivery O2 Flow Rate FiO2 01/24/19 18:50 98.3 01/24/19 18:12 108 141/66 01/24/19 18:00 109 22 141/66 (91) 01/24/19 17:00 102 18 122/64 (83) 95 01/24/19 16:00 Venturi Mask 12.0 01/24/19 16:00 98.3 98 18 113/60 (77) 88 01/24/19 16:00 97 01/24/19 15:16 98.5 01/24/19 15:00 96 19 97/49 (65) 96 01/24/19 14:17 128/66 01/24/19 14:00 102 21 128/66 (86) 97 01/24/19 13:00 103 22 117/55 (75) 93 01/24/19 12:00 98.5 107 23 126/57 (80) 95 01/24/19 12:00 107 01/24/19 12:00 Venturi Mask 12.0 01/24/19 11:00 102 20 132/61 (84) 94 01/24/19 10:00 104 23 130/64 (86) 93 01/24/19 09:00 97 19 139/82 (101) 97 01/24/19 08:18 98 148/60 01/24/19 08:17 148/60 01/24/19 08:00 94 01/24/19 08:00 Venturi Mask 12.0 01/24/19 08:00 98.5 102 17 148/60 (89) 86 01/24/19 07:00 90 16 100/49 (66) 88 01/24/19 07:00 85 18 100/49 (66) 92 01/24/19 06:00 86 16 155/74 (101) 91 01/24/19 05:53 144/51 01/24/19 05:00 94 19 144/51 (82) 90 01/24/19 04:00 Venturi Mask 12.0 01/24/19 04:00 94 01/24/19 04:00 99.3 102 18 165/86 (112) 87 01/24/19 03:00 95 16 138/63 (88) 96 01/24/19 02:00 94 16 138/63 (88) 95 01/24/19 01:00 94 16 136/58 (84) 96 01/24/19 00:00 98.5 99 16 134/69 (90) 95 01/24/19 00:00 92 01/24/19 00:00 Nasal Cannula 4.0 01/23/19 23:00 99 16 154/84 (107) 96 01/23/19 22:31 134/69 01/23/19 22:00 93 16 134/69 (90) 96 01/23/19 21:00 92 16 156/67 (96) 96 01/23/19 20:25 138/71 01/23/19 20:00 Nasal Cannula 4.0 01/23/19 20:00 93 01/23/19 20:00 98.8 94 17 138/71 (93) 95 01/23/19 19:30 93 17 95 Nasal Cannula 4.0 36 01/23/19 19:29 Nasal Cannula 4.0 36 01/23/19 19:29 96 Nasal Cannula 4.0 36 General Appearance: no apparent distress, alert Neck: supple Cardiovascular: normal rate Respiratory/Chest: lungs clear - ant Abdomen: normal bowel sounds, non tender, soft Extremities: trace edema Intake and Output 01/23/19 01/24/19 19:00 07:00 Intake Total 240 ml 50 ml Output Total 1370 ml 1415 ml Balance -1130 ml -1365 ml Intake Oral 240 ml 50 ml Output Urine Total 1370 ml 1415 ml # Bowel Movements 3 Laboratory Tests Test 01/24/19 04:20 White Blood Count 7.7 K/UL (4.8-10.8) Red Blood Count 4.33 M/UL (4.20-5.40) Hemoglobin 11.8 G/DL (12.0-16.0) L Hematocrit 36.7 % (37.0-47.0) L Mean Corpuscular Volume 85 FL (80-99) Mean Corpuscular Hemoglobin 27.3 PG (27.0-31.0) Mean Corpuscular Hemoglobin Concent 32.2 G/DL (32.0-36.0) Red Cell Distribution Width 16.9 % (11.6-14.8) H Platelet Count 428 K/UL (150-450) Mean Platelet Volume 6.6 FL (6.5-10.1) Neutrophils (%) (Auto) 70.8 % (45.0-75.0) Lymphocytes (%) (Auto) 21.6 % (20.0-45.0) Monocytes (%) (Auto) 3.4 % (1.0-10.0) Eosinophils (%) (Auto) 3.2 % (0.0-3.0) H Basophils (%) (Auto) 1.0 % (0.0-2.0) Sodium Level 141 MMOL/L (136-145) Potassium Level 4.3 MMOL/L (3.5-5.1) Chloride Level 101 MMOL/L (98-107) Carbon Dioxide Level 36 MMOL/L (21-32) H Anion Gap 4 mmol/L (5-15) L Blood Urea Nitrogen 16 mg/dL (7-18) Creatinine 0.6 MG/DL (0.55-1.30) Estimat Glomerular Filtration Rate mL/min (>60) Glucose Level 100 MG/DL (74-106) Calcium Level 9.7 MG/DL (8.5-10.1) Magnesium Level 1.8 MG/DL (1.8-2.4) Total Bilirubin 0.2 MG/DL (0.2-1.0) Aspartate Amino Transf (AST/SGOT) 13 U/L (15-37) L Alanine Aminotransferase (ALT/SGPT) 16 U/L (12-78) Alkaline Phosphatase 109 U/L (46-116) Total Protein 8.0 G/DL (6.4-8.2) Albumin 2.6 G/DL (3.4-5.0) L Globulin 5.4 g/dL Albumin/Globulin Ratio 0.5 (1.0-2.7) L Krishna Perry MD January 24, 2019 19:13
--- NOTE | 2019-01-24 19:21 | NUR ---
HAND-OFF: Report given to Zachery STATON. Pt is asleep with stable VS. Endorsed plan of care.
--- NOTE | 2019-01-24 19:30 | NUR ---
NURSE NOTES: Received pt in no acute distress, on [place] bed with HOB elevated. Asleep but arousable to name. Denies any pains, denies SOB. On 5l/m via NC saturating 96-97%. Chest sounds with diminished air entry at bases. BUE contracted; afebrile, BP stable, NSR. HL on right hand and right wrist area intact. Suprapubic cath intact, UOP 100ml/h. Plan of care explained; will continue to monitor.
--- NOTE | 2019-01-24 21:30 | NUR ---
NURSE NOTES: Fed with HS snacks; pt 1:1 feed. PO meds given as well. Took 480 ml Ayan shake mixed with ice and low fat milk. Well tolerated. Lasix 20mg IVP given
[2019-01-25] VITALS (18 sets, daily range): BP systolic 116–160; BP diastolic 59–81
--- NOTE | 2019-01-25 | NUR ---
NURSE NOTES: Sleeping with HOB elevated; VSS, no distress. Diuresing well
--- NOTE | 2019-01-25 02:00 | NUR ---
NURSE NOTES: Continues to sleep, no distress, VSS
--- NOTE | 2019-01-25 04:00 | NUR ---
NURSE NOTES: Incontinent of small amt of soft BM. Complete bed bath done; replaced optifoam dressing on sacral area. Awake and denies any pain, denies SOB. SPC intact, exit site clean and dry. HL patent. VSS, afebrile.
[2019-01-25 05:12] LABS: BASOPHILS % (AUTO) 0.5 % (0.0-2.0); EOSINOPHILS % (AUTO) 1.8 % (0.0-3.0); HEMOGLOBIN 11.5 G/DL (12.0-16.0); LYMPHOCYTES % (AUTO) 13.8 % (20.0-45.0); MEAN CORPUSCULAR VOLUME 84 FL (80-99); MONOCYTES % (AUTO) 3.7 % (1.0-10.0); NEUTROPHILS % (AUTO) 80.2 % (45.0-75.0); PLATELET COUNT 408 K/UL (150-450); RED BLOOD COUNT 4.15 M/UL (4.20-5.40); RED CELL DISTRIBUTION WIDTH 16.9 % (11.6-14.8); WHITE BLOOD COUNT 8.5 K/UL (4.8-10.8)
--- NOTE | 2019-01-25 07:20 | NUR ---
HAND-OFF: Report given to Cass STATON.
--- NOTE | 2019-01-25 08:00 | NUR ---
A&O x4. SR on supervisor rolling room. 5 L NC with humidifier. Suprapubic catheter intact. Turned and repositioned. Skin issues noted see WCP. R hand 22 R wrist 20 saline lock. VSS. No dsitress noted. Denies pain or discomfort at this time. Lung sounds diminished bilaterally. Hypoactive bowel sounds presents. HOB elevated 45 degrees, bed on lowest position. Bed alarm on. Will continue plan of care.
[2019-01-25] MEDS: Miralax 17gm pkt ORAL SCH (08:38)
[2019-01-25] MEDS: Lisinopril 20mg tab ORAL SCH ×2 (08:39→20:44)
[2019-01-25] MEDS: metFORMIN 500mg tab ORAL SCH ×2 (08:39→17:42)
--- NOTE | 2019-01-25 10:00 | NUR ---
NURSE NOTES: Patient turned and repositioned. No new orders. Dr. Quiroz at bedside. Will continue plan of care.
--- NOTE | 2019-01-25 10:25 | NUR ---
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 UTI E-COLI VS: BP 160/70, P 99, T 98.0, SpO2 95 on NC 5.0 RBC 4.15, H&H 11.5/35.0, IS:LASIX 20mg IV BACLOFEN 10mg METFORMIN 500mg ZANAFLEX 4mg NORVASC 5mg CLONIDINE 0.1mg ICU STATUS
--- NOTE | 2019-01-25 11:09 | NUR ---
*-* INSURANCE *-* UPDATED CLINICALS AND REVIEW HAVE BEEN FAXED TO: [facility] [place] ..SHE WILL HANDLE THIS ADMISSION.. P- [phone] F- [phone].....REVIEW/CLINICAL
--- NOTE | 2019-01-25 11:23 | NUR ---
ST NOTE: ST WEEKLY: PT PARTIALLY MET PO INTAKE GOALS. NURSING STAFF MET [employer] GOALS. CONTINUE SKILLED ST SERVICE. FOLLOWED UP PT'S CONDITIONS. PER RN, PATRIAI, PT IS IMPROVING. DISCUSSED WITH RT RE:PT'S CONDITIONS. WILL FOLLOW UP.
--- NOTE | 2019-01-25 12:00 | NUR ---
NURSE NOTES: VSS. No distress noted. Will continue to monitor patient.
--- NOTE | 2019-01-25 12:50 | Infectious Diseases Prog Note ---
Assessment/Plan Assessment/Plan ASSESSMENT AND PLAN: 1. e.coli uti/pyelonephritis, pneumonia vs chf, atx, fevers, sputum culture - normal althea, CT chest noted - rocephin - day # 10 abx, last day - monitor labs and chest x-ray - fevers better - clinically better, more alert - CT chest noted 2. Multiple sclerosis. 3. elevated bp - in icu and on tx 4. Suprapubic catheter that is chronic, neurogenic bladder 5. Morbid obesity. 6. Quadriplegia. 7. Hypertension. 8. Hyperlipidemia. 9. Diabetes type 2. 10. Colonic polyps. 11. Anemia. 12. History of colonoscopy. 13. Social history is negative for smoking, alcohol, or drug abuse. 14. Family history is noncontributory. 15. Allergies to sulfa drugs. 16. MAR was noted. 17. Case was discussed with RN. 18. [facility] care. 19. Wound Skin care protocol. 20. Continue treatment per Dr. Quiroz and consultants. Subjective Constitutional: Denies: fever HEENT: Denies: congestion Respiratory: Denies: shortness of breath Cardiovascular: Denies: chest pain Gastrointestinal/Abdominal: Denies: nausea, vomiting, diarrhea Genitourinary: Reports: other - + weber Neurologic: Denies: headache Psychiatric: Denies: depression Skin: Denies: rash Hematologic: Denies: bleeding Musculoskeletal: Denies: pain Allergies: Coded Allergies: SULFA (SULFONAMIDE ANTIBIOTICS) (Verified Allergy, Unknown, 11/22/17) Objective Vital Signs Last 24 Hour Vital Signs Date Time Temp Pulse Resp B/P (MAP) Pulse Ox O2 Delivery O2 Flow Rate FiO2 01/25/19 08:39 99 154/68 01/25/19 08:39 154/68 01/25/19 08:00 85 18 147/75 (99) 98 01/25/19 08:00 Nasal Cannula 5.0 01/25/19 08:00 99 01/25/19 07:00 90 18 157/77 (103) 98 01/25/19 06:00 92 18 145/67 (93) 95 01/25/19 05:52 160/70 01/25/19 05:00 98.0 98 19 160/70 (100) 01/25/19 04:00 98 01/25/19 04:00 95 18 151/73 (99) 98 01/25/19 04:00 Nasal Cannula 5.0 01/25/19 03:00 94 19 139/63 (88) 98 01/25/19 02:00 103 17 149/72 (97) 95 01/25/19 01:00 99.0 102 21 133/60 (84) 96 01/25/19 00:00 Nasal Cannula 5.0 01/25/19 00:00 101 01/25/19 00:00 109 25 135/59 (84) 95 01/24/19 23:00 104 20 107/51 (69) 97 01/24/19 22:00 93 18 111/59 (76) 97 01/24/19 21:23 130/65 01/24/19 21:13 130/65 01/24/19 21:00 98 18 130/65 (86) 96 01/24/19 20:00 96 01/24/19 20:00 98.0 92 17 104/56 (72) 96 01/24/19 20:00 Nasal Cannula 5.0 01/24/19 19:17 98 19 98 Nasal Cannula 4.0 36 01/24/19 19:17 Nasal Cannula 4.0 36 01/24/19 19:17 98 Nasal Cannula 4.0 36 01/24/19 19:11 98.3 01/24/19 19:00 93 17 120/64 (82) 96 01/24/19 18:50 98.3 01/24/19 18:12 108 141/66 01/24/19 18:00 109 22 141/66 (91) 95 01/24/19 17:00 102 18 122/64 (83) 95 01/24/19 16:00 Venturi Mask 12.0 01/24/19 16:00 98.3 98 18 113/60 (77) 88 01/24/19 16:00 97 01/24/19 15:00 96 19 97/49 (65) 96 01/24/19 14:17 128/66 01/24/19 14:00 102 21 128/66 (86) 97 01/24/19 13:00 103 22 117/55 (75) 93 Height (Feet): 5 Height (Inches): 7.00 Weight (Pounds): 200 General Appearance: no acute distress HEENT: normocephalic, atraumatic, anicteric, mucous membranes moist Respiratory/Chest: lungs clear, normal breath sounds, no respiratory distress, no accessory muscle use Cardiovascular: normal rate, regular rhythm, no gallop/murmur, no JVD Abdomen: normal bowel sounds, soft, non tender, no organomegaly, non distended Genitourinary: other - + weber - urine clear Extremities: no cyanosis Skin: no rash Neurologic/Psychiatric: 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 Findings: Patchy infiltrates noted on the right upper lobe and possibly left lung base as well. Generalized interstitial and vascular prominence demonstrated although this may be slightly improved. IMPRESSION: Persistent right upper lobe infiltrate and probable infiltrate left lung base. This could be due to pneumonia or asymmetric edema. Improved interstitial edema over one day Chest x-ray - 01/18/19 - Comparison: 01/16/2019 A single view chest radiograph was obtained. Findings: Developing pulmonary vascular congestion demonstrated. The heart is enlarged. Vascularity is more prominent. IMPRESSION: Development of CHF Chest x-ray - 01/19/19 - Procedure: XRAY Chest 1v Indication: Cough Comparison: 01/18/2019 A single view chest radiograph was obtained. Findings: Prominent pulmonary vascularity and heart size are demonstrated. Small pleural effusions are not excluded. IMPRESSION: Pulmonary vascular congestion. No significant change CT chest: IMPRESSION: Large area of focal bullous emphysema involving the right lung base accounting for the lucency demonstrated on the recent chest x-ray. Generalized emphysema noted within the lungs especially in the upper lobes. Pulmonary edema. Bilateral pleural effusions larger on the right compared to left. Posterior basilar atelectasis and/or pneumonia. Microbiology Date/Time Source Procedure Growth Status 01/15/19 16:37 Blood Blood Culture - Final NO GROWTH AFTER 5 DAYS Complete 01/17/19 04:00 Sputum Induced Gram Stain - Final Complete 01/17/19 04:00 Sputum Induced Sputum Culture - Final NORMAL UPPER RESPIRATORY ALTHEA PRESENT Complete 01/15/19 16:14 Urine,Clean Catch Urine Culture - Final Escherichia Coli Complete Labs Test 01/23/19 04:00 01/24/19 04:20 01/25/19 04:25 White Blood Count 5.7 K/UL (4.8-10.8) 7.7 K/UL (4.8-10.8) 8.5 K/UL (4.8-10.8) Red Blood Count 4.27 M/UL (4.20-5.40) 4.33 M/UL (4.20-5.40) 4.15 M/UL (4.20-5.40) Hemoglobin 11.6 G/DL (12.0-16.0) 11.8 G/DL (12.0-16.0) 11.5 G/DL (12.0-16.0) Hematocrit 35.8 % (37.0-47.0) 36.7 % (37.0-47.0) 35.0 % (37.0-47.0) Mean Corpuscular Volume 84 FL (80-99) 85 FL (80-99) 84 FL (80-99) Mean Corpuscular Hemoglobin 27.2 PG (27.0-31.0) 27.3 PG (27.0-31.0) 27.8 PG (27.0-31.0) Mean Corpuscular Hemoglobin Concent 32.4 G/DL (32.0-36.0) 32.2 G/DL (32.0-36.0) 32.9 G/DL (32.0-36.0) Red Cell Distribution Width 16.8 % (11.6-14.8) 16.9 % (11.6-14.8) 16.9 % (11.6-14.8) Platelet Count 371 K/UL (150-450) 428 K/UL (150-450) 408 K/UL (150-450) Mean Platelet Volume 6.8 FL (6.5-10.1) 6.6 FL (6.5-10.1) 7.2 FL (6.5-10.1) Neutrophils (%) (Auto) 58.3 % (45.0-75.0) 70.8 % (45.0-75.0) 80.2 % (45.0-75.0) Lymphocytes (%) (Auto) 27.8 % (20.0-45.0) 21.6 % (20.0-45.0) 13.8 % (20.0-45.0) Monocytes (%) (Auto) 7.1 % (1.0-10.0) 3.4 % (1.0-10.0) 3.7 % (1.0-10.0) Eosinophils (%) (Auto) 5.9 % (0.0-3.0) 3.2 % (0.0-3.0) 1.8 % (0.0-3.0) Basophils (%) (Auto) 0.9 % (0.0-2.0) 1.0 % (0.0-2.0) 0.5 % (0.0-2.0) Erythrocyte Sedimentation Rate 77 MM/HR (0-30) Sodium Level 141 MMOL/L (136-145) 141 MMOL/L (136-145) Potassium Level 4.3 MMOL/L (3.5-5.1) 4.3 MMOL/L (3.5-5.1) Chloride Level 103 MMOL/L (98-107) 101 MMOL/L (98-107) Carbon Dioxide Level 33 MMOL/L (21-32) 36 MMOL/L (21-32) Anion Gap 6 mmol/L (5-15) 4 mmol/L (5-15) Blood Urea Nitrogen 10 mg/dL (7-18) 16 mg/dL (7-18) Creatinine 0.5 MG/DL (0.55-1.30) 0.6 MG/DL (0.55-1.30) Estimat Glomerular Filtration Rate mL/min (>60) mL/min (>60) Glucose Level 100 MG/DL (74-106) 100 MG/DL (74-106) Calcium Level 9.0 MG/DL (8.5-10.1) 9.7 MG/DL (8.5-10.1) Total Bilirubin 0.3 MG/DL (0.2-1.0) 0.2 MG/DL (0.2-1.0) Aspartate Amino Transf (AST/SGOT) 20 U/L (15-37) 13 U/L (15-37) Alanine Aminotransferase (ALT/SGPT) 15 U/L (12-78) 16 U/L (12-78) Alkaline Phosphatase 100 U/L (46-116) 109 U/L (46-116) C-Reactive Protein, Quantitative 1.3 mg/dL (0.00-0.90) Total Protein 7.6 G/DL (6.4-8.2) 8.0 G/DL (6.4-8.2) Albumin 2.2 G/DL (3.4-5.0) 2.6 G/DL (3.4-5.0) Globulin 5.4 g/dL 5.4 g/dL Albumin/Globulin Ratio 0.4 (1.0-2.7) 0.5 (1.0-2.7) Magnesium Level 1.8 MG/DL (1.8-2.4) Laboratory Tests Test 01/25/19 04:25 White Blood Count 8.5 K/UL (4.8-10.8) Red Blood Count 4.15 M/UL (4.20-5.40) L Hemoglobin 11.5 G/DL (12.0-16.0) L Hematocrit 35.0 % (37.0-47.0) L Mean Corpuscular Volume 84 FL (80-99) Mean Corpuscular Hemoglobin 27.8 PG (27.0-31.0) Mean Corpuscular Hemoglobin Concent 32.9 G/DL (32.0-36.0) Red Cell Distribution Width 16.9 % (11.6-14.8) H Platelet Count 408 K/UL (150-450) Mean Platelet Volume 7.2 FL (6.5-10.1) Neutrophils (%) (Auto) 80.2 % (45.0-75.0) H Lymphocytes (%) (Auto) 13.8 % (20.0-45.0) L Monocytes (%) (Auto) 3.7 % (1.0-10.0) Eosinophils (%) (Auto) 1.8 % (0.0-3.0) Basophils (%) (Auto) 0.5 % (0.0-2.0) Current Medications Medications (Trade) Dose Ordered Sig/Mj Route PRN Reason Start Time Stop Time Status Last Admin Dose Admin Acetaminophen (Tylenol) 650 mg Q4H PRN ORAL Mild Pain/Temp > 100.5 01/21/19 05:00 02/15/19 04:59 01/24/19 18:20 Albuterol/ Ipratropium (Albuterol/ Ipratropium) 3 ml Q4H PRN HHN Shortness of Breath 01/22/19 18:45 01/27/19 18:44 01/23/19 10:45 Amlodipine Besylate (Norvasc) 5 mg BID ORAL 01/23/19 18:00 02/22/19 17:59 01/25/19 08:39 Atorvastatin Calcium (Lipitor) 10 mg BEDTIME ORAL 01/21/19 21:00 02/15/19 20:59 01/24/19 21:13 Baclofen (Lioresal) 10 mg THREE TIMES A DAY ORAL 01/21/19 09:00 02/15/19 08:59 01/25/19 08:39 Ceftriaxone Sodium 1 gm/ Dextrose 50 ml @ 100 mls/hr Q24H IVPB 01/21/19 16:00 01/26/19 15:59 01/24/19 16:29 Clonidine HCl (Catapres Tab) 0.1 mg EVERY 8 HOURS ORAL 01/22/19 14:00 02/21/19 13:59 01/25/19 05:52 Furosemide (Lasix) 20 mg EVERY 12 HOURS IV 01/23/19 17:45 02/22/19 17:44 01/25/19 08:40 Guaifenesin/ Codeine Phosphate (Robitussin with codeine) 5 ml Q6H PRN ORAL For Cough 01/21/19 02:44 02/16/19 02:43 01/23/19 21:21 Hydralazine HCl (Apresoline) 10 mg Q6H PRN IV SBP >170 01/21/19 06:00 02/20/19 00:00 01/22/19 01:21 Lisinopril (Prinivil) 20 mg Q12HR ORAL 01/21/19 13:00 02/20/19 12:59 01/25/19 08:39 Metformin HCl (Glucophage) 500 mg TWICE A DAY ORAL 01/21/19 09:00 02/15/19 08:59 01/25/19 08:39 Pantoprazole (Protonix) 40 mg DAILY ORAL 01/21/19 09:00 02/15/19 08:59 01/25/19 08:39 Patient Own Medication (Patient's Own Med) 1 ea QOD SUBQ 01/22/19 09:00 02/17/19 08:59 01/24/19 09:24 Polyethylene Glycol (Miralax) 17 gm DAILY ORAL 01/22/19 09:00 02/21/19 08:59 01/25/19 08:38 Sodium Nitroprusside 50 mg/Dextrose 250 ml @ 0 mls/hr Q24H IV 01/21/19 03:00 02/20/19 02:59 01/22/19 02:04 Tizanidine HCl (Zanaflex) 4 mg THREE TIMES A DAY ORAL 01/21/19 09:00 02/15/19 08:59 01/25/19 08:39 Trazodone HCl (Desyrel) 100 mg BEDTIME PRN ORAL insomnia 01/21/19 02:35 02/19/19 02:34 01/22/19 21:27 Carroll Miller MD January 25, 2019 12:50
--- NOTE | 2019-01-25 14:00 | NUR ---
NURSE NOTES: Patient turned and repositioned. No distress noted. Stable. Denies discomfort. Caregiver at bedside. Will continue plan of care.
--- NOTE | 2019-01-25 14:07 | Surgery Progress Note ---
Surgery Progress Note Subjective Symptoms: improved Objective Last 24 Hour Vital Signs Date Time Temp Pulse Resp B/P (MAP) Pulse Ox O2 Delivery O2 Flow Rate FiO2 01/25/19 13:00 98.7 103 22 152/73 (99) 95 01/25/19 12:00 99 22 150/67 (94) 95 01/25/19 12:00 Nasal Cannula 5.0 01/25/19 12:00 95 01/25/19 11:00 98 20 145/67 (93) 95 01/25/19 10:00 102 20 116/59 (78) 94 01/25/19 09:00 98.4 96 21 118/62 (80) 95 01/25/19 08:39 99 154/68 01/25/19 08:39 154/68 01/25/19 08:00 85 18 147/75 (99) 98 01/25/19 08:00 Nasal Cannula 5.0 01/25/19 08:00 99 01/25/19 07:00 90 18 157/77 (103) 98 01/25/19 06:00 92 18 145/67 (93) 95 01/25/19 05:52 160/70 01/25/19 05:00 98.0 98 19 160/70 (100) 01/25/19 04:00 98 01/25/19 04:00 95 18 151/73 (99) 98 01/25/19 04:00 Nasal Cannula 5.0 01/25/19 03:00 94 19 139/63 (88) 98 01/25/19 02:00 103 17 149/72 (97) 95 01/25/19 01:00 99.0 102 21 133/60 (84) 96 01/25/19 00:00 Nasal Cannula 5.0 01/25/19 00:00 101 01/25/19 00:00 109 25 135/59 (84) 95 01/24/19 23:00 104 20 107/51 (69) 97 01/24/19 22:00 93 18 111/59 (76) 97 01/24/19 21:23 130/65 01/24/19 21:13 130/65 01/24/19 21:00 98 18 130/65 (86) 96 01/24/19 20:00 96 01/24/19 20:00 98.0 92 17 104/56 (72) 96 01/24/19 20:00 Nasal Cannula 5.0 01/24/19 19:17 98 19 98 Nasal Cannula 4.0 36 01/24/19 19:17 Nasal Cannula 4.0 36 01/24/19 19:17 98 Nasal Cannula 4.0 36 01/24/19 19:11 98.3 01/24/19 19:00 93 17 120/64 (82) 96 01/24/19 18:50 98.3 01/24/19 18:12 108 141/66 01/24/19 18:00 109 22 141/66 (91) 95 01/24/19 17:00 102 18 122/64 (83) 95 01/24/19 16:00 Venturi Mask 12.0 01/24/19 16:00 98.3 98 18 113/60 (77) 88 01/24/19 16:00 97 01/24/19 15:00 96 19 97/49 (65) 96 01/24/19 14:17 128/66 I&O Intake and Output 01/24/19 01/25/19 19:00 07:00 Intake Total 770 ml 1200 ml Output Total 1000 ml 1645 ml Balance -230 ml -445 ml Intake Oral 720 ml 1200 ml IV Total 50 ml Output Urine Total 1000 ml 1645 ml # Bowel Movements 2 2 Dressing: saturated Wound: clean Cardiovascular: RSR Respiratory: clear, decreased breath sounds Abdomen: soft, non-tender, present bowel sounds, non-distended Extremities: no tenderness, no cyanosis Laboratory Tests Test 01/25/19 04:25 White Blood Count 8.5 K/UL (4.8-10.8) Red Blood Count 4.15 M/UL (4.20-5.40) L Hemoglobin 11.5 G/DL (12.0-16.0) L Hematocrit 35.0 % (37.0-47.0) L Mean Corpuscular Volume 84 FL (80-99) Mean Corpuscular Hemoglobin 27.8 PG (27.0-31.0) Mean Corpuscular Hemoglobin Concent 32.9 G/DL (32.0-36.0) Red Cell Distribution Width 16.9 % (11.6-14.8) H Platelet Count 408 K/UL (150-450) Mean Platelet Volume 7.2 FL (6.5-10.1) Neutrophils (%) (Auto) 80.2 % (45.0-75.0) H Lymphocytes (%) (Auto) 13.8 % (20.0-45.0) L Monocytes (%) (Auto) 3.7 % (1.0-10.0) Eosinophils (%) (Auto) 1.8 % (0.0-3.0) Basophils (%) (Auto) 0.5 % (0.0-2.0) Plan Problems: (1) Decubital ulcer Assessment & Plan: Pt presented on admission with multiple ,Pressure injuries, MASD bilateral breasts folds, abd folds, bilateral groin and medial aspects of both thighs. Erythema with denuded skin noted to affected areas. Moisture intertrigo noted to R groin. Scattered Nevi noted to back and medial aspects of both upper thighs.Pt also noted to have numerous skin tags medial upper thighs. Resolving pressure injury noted to sacral area.Base of wound with pink epithelial with surrounding hyperpigmentation .Small wound noted at sacrococcygeal area(L)1.0cm x (W)0.9cm. Base of wound is moist and viable. Hyperpigmentation from previous pressure injury noted in crevices of skin R ischium. Caregiver at bedside and stated pt has Hx of Recurrent pressure injuries to sacrum and R ischium.Hyperpigmentation noted to L ischium. L heel boggy with non-blanchable erythema non-tender when palpated. Non-blanchable erythema with fluctuance at base medial aspect of R heel. (L) 1.5cm x (W)2.3cm Edemae and Foot drop noted to both feet. Eschar with surrounding erythema noted to R 1st metatarsal head. Small amt purulent exudate noted when wound minimally palpated. Small partial thickness ulcers without exudate noted to dorsum of R 2nd,3rd,4th and 5th metatarsals.Wounds are erythematous at base .Periwound metatarsals are pale and shiny. Tx.Plan: Wash skin folds of both breasts and abd folds with soap and water. Apply Light dusting of Antifungal powder every shift. Apply Triad Paste to buttocks both ischial areas, bilat groin and medial / posterior aspects of both upper thighs with each incontinence care. Apply Triad Paste to sacrum.Cover with Optifoam drsg. Change every 3 days and prn. Swab R 1st metatarsal head with Betadine. Cover with Optifoam drsg Daily and prn. Apply Cavilon to both heels .Cover each heel with Optifoam drsg.Change every 7 days and prn. Apply Betadine to dorsals of 2nd,3rd,4th and 5th metatarsals. Bariatric bed with Air fluidized mattress. Reposition at least every 2hours or as tolerated. Off-load heels with pillow. (2) Multiple sclerosis (3) Obstipation Assessment & Plan: abdomen distended KUB noted and okay exam without tenderness decreased bowel sounds cont with diet will follow with exam (4) Urinary tract infection (5) Hypoxemia (6) Tachycardia (7) Pneumonia Assessment & Plan: Large area of focal bullous emphysema involving the right lung base accounting for the lucency demonstrated on the recent chest x-ray. Generalized emphysema noted within the lungs especially in the upper lobes. Pulmonary edema. Bilateral pleural effusions larger on the right compared to left. Posterior basilar atelectasis and/or pneumonia. (8) Obesities, morbid Assessment & Plan: DAILY ESTIMATED NEEDS: Needs based on Pulmonary, obese 78kg adj 20-25 kcals/kg [id number] total kcals 1-1.5 g protein/kg 78-117 g total protein Fluid per MD, on lasix NUTRITION DIAGNOSIS: 1) Decreased sodium and fat intake needs R/T cardiac hx, PNA as evidenced by on diuretics, HTN, BMI >40, pt is @191% [place] Body Weight. 2) Self feeding difficulty r/t MS as evidenced by pt w/ BL UE contractures, requires 1:1 feedings. PO DIET RECOMMENDATIONS: Cardiac, CCHO MED (texture per ENGINEER SPECIALIST) ---- ADDITIONAL RECOMMENDATIONS: 1) ENGINEER SPECIALIST eval for appropriate texture (h/o MS w/ contractures, need for 1:1) 2) Wound Care: photos noted, pending MD kathleen 3) A1C for eval (need for diet change to ccho low w/ 2x prot) 4) Check lytes daily on lasix, replete as needed (Mg 1.6) (9) Encounter for generalized patient complaints John Toledo January 25, 2019 14:07
[2019-01-25] MEDS: guaiFENesin w/Codeine 5ml Liq ud ORAL PRN (15:19)
--- NOTE | 2019-01-25 15:59 | NUR ---
TRANSFER TO FLOOR: Patient transferred to [facility], per Hospital Bed. Report given to SHEMAR Regalado. No Belongings. Family and or S/O informed of transfer.
[2019-01-25] MEDS ORDERED: cefTRIAXone 1 GM in D5W 50 ML IVPB SCH ×4 (16:00)
[2019-01-25] MEDS ORDERED: Albuterol/Ipratropium 3ml neb HHN PRN (16:00)
--- NOTE | 2019-01-25 19:19 | NUR ---
HAND-OFF: Report given to SHEMAR Go. Patient in stable condition.
--- NOTE | 2019-01-25 19:20 | NUR ---
NURSE NOTES: Received report from Hans Faust RN and Yuly Houser RN. Patient is asleep in bed, arousable to name and light shaking, A/O x4. Sinus rhythm on cardiac surgeon. No s/s of acute distress noted. On 5L O2 via nasal cannula and saturating well. Suprapubic urinary catheter noted, intact and patent. Right hand 22g IV saline lock, intact and patent. Right wrist 20g IV saline lock, intact and patent. Bed locked in lowest position with side rails up x3. Call light left within reach. Will continue to monitor.
--- NOTE | 2019-01-25 20:50 | Cardiology Progress Note ---
Assessment/Plan Assessment/Plan 1. Hypotension, probably multifactorial, possibly volume related versus medication related (resolved) 2. Pneumonia. 3. Multiple sclerosis. 4. Diabetes mellitus. 5. Chronic suprapubic catheter. 6. Decubitus ulcers 7. MS (multiple sclerosis) 8. edema 9. Labiel htn blood cx neg sofar still urine cx postive off ivf on acie norvasc added and dose increaed echo report noted nomral lv fxn tele personally rev. sinus swiitch maureen laix watch bp Subjective Cardiovascular: Denies: chest pain, lightheadedness Respiratory: Denies: shortness of breath Gastrointestinal/Abdominal: Denies: abdominal pain Genitourinary: Denies: burning Objective Last 24 Hour Vital Signs Date Time Temp Pulse Resp B/P (MAP) Pulse Ox O2 Delivery O2 Flow Rate FiO2 01/25/19 20:44 117/66 01/25/19 20:00 97.0 100 24 117/66 (83) 93 01/25/19 17:42 104 117/78 01/25/19 16:24 96 01/25/19 16:00 99.1 104 18 140/81 (100) 97 01/25/19 16:00 Nasal Cannula 5.0 01/25/19 15:03 104 24 117/78 (91) 94 01/25/19 14:15 155/78 01/25/19 14:00 112 21 154/74 (100) 95 01/25/19 14:00 108 22 155/77 (103) 95 01/25/19 13:59 98.7 01/25/19 13:00 98.7 103 22 152/73 (99) 95 01/25/19 12:00 99 22 150/67 (94) 95 01/25/19 12:00 Nasal Cannula 5.0 01/25/19 12:00 95 01/25/19 11:00 98 20 145/67 (93) 95 01/25/19 10:00 102 20 116/59 (78) 94 01/25/19 09:00 98.4 96 21 118/62 (80) 95 01/25/19 08:39 99 154/68 01/25/19 08:39 154/68 01/25/19 08:00 85 18 147/75 (99) 98 01/25/19 08:00 Nasal Cannula 5.0 01/25/19 08:00 99 01/25/19 07:00 90 18 157/77 (103) 98 01/25/19 06:00 92 18 145/67 (93) 95 01/25/19 05:52 160/70 01/25/19 05:00 98.0 98 19 160/70 (100) 01/25/19 04:00 98 01/25/19 04:00 95 18 151/73 (99) 98 01/25/19 04:00 Nasal Cannula 5.0 01/25/19 03:00 94 19 139/63 (88) 98 01/25/19 02:00 103 17 149/72 (97) 95 01/25/19 01:00 99.0 102 21 133/60 (84) 96 01/25/19 00:00 Nasal Cannula 5.0 01/25/19 00:00 101 01/25/19 00:00 109 25 135/59 (84) 95 01/24/19 23:00 104 20 107/51 (69) 97 01/24/19 22:00 93 18 111/59 (76) 97 01/24/19 21:23 130/65 01/24/19 21:13 130/65 01/24/19 21:00 98 18 130/65 (86) 96 General Appearance: alert, obese Neck: supple Cardiovascular: regular rhythm Respiratory/Chest: lungs clear Abdomen: normal bowel sounds, non tender, soft Extremities: moderate edema Intake and Output 01/24/19 01/25/19 19:00 07:00 Intake Total 770 ml 1200 ml Output Total 1000 ml 1645 ml Balance -230 ml -445 ml Intake Oral 720 ml 1200 ml IV Total 50 ml Output Urine Total 1000 ml 1645 ml # Bowel Movements 2 2 Laboratory Tests Test 01/25/19 04:25 White Blood Count 8.5 K/UL (4.8-10.8) Red Blood Count 4.15 M/UL (4.20-5.40) L Hemoglobin 11.5 G/DL (12.0-16.0) L Hematocrit 35.0 % (37.0-47.0) L Mean Corpuscular Volume 84 FL (80-99) Mean Corpuscular Hemoglobin 27.8 PG (27.0-31.0) Mean Corpuscular Hemoglobin Concent 32.9 G/DL (32.0-36.0) Red Cell Distribution Width 16.9 % (11.6-14.8) H Platelet Count 408 K/UL (150-450) Mean Platelet Volume 7.2 FL (6.5-10.1) Neutrophils (%) (Auto) 80.2 % (45.0-75.0) H Lymphocytes (%) (Auto) 13.8 % (20.0-45.0) L Monocytes (%) (Auto) 3.7 % (1.0-10.0) Eosinophils (%) (Auto) 1.8 % (0.0-3.0) Basophils (%) (Auto) 0.5 % (0.0-2.0) Krishna Perry MD January 25, 2019 20:50
[2019-01-25] MEDS ORDERED: guaiFENesin w/Codeine 5ml Liq ud ORAL PRN (21:00)
[2019-01-26] VITALS: BP 137/77
--- NOTE | 2019-01-26 01:00 | NUR ---
NURSE NOTES: Patient O2 sat 86%. NT suctioned, but still saturating low. Supplemental O2 changed with RT to venturi mask 8L @ 40%.
--- NOTE | 2019-01-26 02:30 | NUR ---
NURSE NOTES: Patient O2 sat went down into 70's, now 83%, but now s/s of acute respiratory distress. Patient denies any difficulty breathing. NT suctioned once again. O2 supplementation changed with RT to Venturi Mask 14L @ 55%. Patient refusing further suctioning. Now saturating 92%. Will continue to monitor.
--- NOTE | 2019-01-26 03:34 | NUR ---
NURSE NOTES: Dr. Gabriella MD made aware of patient's O2 saturation and current oxygen supplementation via Venturi Mask. New orders received for ABG and bipap prn. Noted and carried out. No s/s of acute respiratory distress. Will continue to monitor.
--- NOTE | 2019-01-26 03:58 | NUR ---
RESPIRATORY NOTE: Alert/awake pt's SpO2 keeps on dropping t/o the night. Pt states her breathing is ok, but she can't take deep breaths. SXN the pt via NTS & got small amounts of thick, pale-yellow secretions, pt would stop us mid way through suctioning. ABG & BiPAP was ordered for this pt per MD Gabriella (see lab for results). Pt placed on BiPAP 16/6, backup rate 14, 70%. Pt on a Facial mask, skin intact, no redness/breakdowns noted. Foam tape applied on pt's nosebridge/cheeks/chin to prevent any mask irritations. B/S samanta. rhonchi/rales, pt has difficulty coughing up phlegm, but refuses to get sxn occasionally. BiPAP plugged into red outlet, alarms audible. Pt tolerating settings well, in no apparent distress at this time. Will continue to monitor pt.
[2019-01-26 04:00] VITALS: BP 128/68
[2019-01-26 05:07] LABS: BASOPHILS % (AUTO) 0.3 % (0.0-2.0); EOSINOPHILS % (AUTO) 0.6 % (0.0-3.0); HEMATOCRIT 33.7 % (37.0-47.0); HEMOGLOBIN 10.9 G/DL (12.0-16.0); LYMPHOCYTES % (AUTO) 13.5 % (20.0-45.0); MEAN CORPUSCULAR VOLUME 85 FL (80-99); MONOCYTES % (AUTO) 3.5 % (1.0-10.0); NEUTROPHILS % (AUTO) 82.2 % (45.0-75.0); PLATELET COUNT 432 K/UL (150-450); RED BLOOD COUNT 3.98 M/UL (4.20-5.40); RED CELL DISTRIBUTION WIDTH 16.6 % (11.6-14.8); WHITE BLOOD COUNT 9.9 K/UL (4.8-10.8)
[2019-01-26 05:18] LABS: ANION GAP 4 mmol/L (5-15); BLOOD UREA NITROGEN 15 mg/dL (7-18); CARBON DIOXIDE 36 MMOL/L (21-32); CHLORIDE 100 MMOL/L (98-107); CREATININE 0.5 MG/DL (0.55-1.30); POTASSIUM 3.7 MMOL/L (3.5-5.1); SODIUM 140 MMOL/L (136-145)
--- NOTE | 2019-01-26 07:05 | NUR ---
HAND-OFF: Report given to Fabian Matthew RN and Hans Faust RN.
--- NOTE | 2019-01-26 07:06 | NUR ---
NURSE NOTES: Received report from SHEMAR Go. Observed patient in bed, awake, verbal, able to make needs known. On BIPAP full mask, 16/6 FiO2 70%, tolerating well. SpO2 94%. No acute distress noted. Suprapubic catheter intact and draining well. Right hand IV access intact and patent. No c/o pain at this time. Bed locked and in lowest position, side rails up, and call light within reach. Will continue to monitor.
--- NOTE | 2019-01-26 07:33 | NUR ---
RESPIRATORY NOTE: received pt on bipap with current settings. fio2 has been titrated to 40% in attempt to remove bipap later this morning. no resp distress noted at this time. no redness or skin tears visible around facial area. bipap is plugged into the redoutlet with alarms set. will cont to monitor.
[2019-01-26 08:00] VITALS: BP 106/55
[2019-01-26] MEDS: metFORMIN 500mg tab ORAL SCH ×2 (08:55→17:25)
[2019-01-26] MEDS: Miralax 17gm pkt ORAL SCH (08:56)
[2019-01-26] MEDS: BETASERON 0.3 MG SUBQ SCH (08:56)
[2019-01-26] MEDS: Lisinopril 20mg tab ORAL SCH ×2 (09:00→20:38)
--- NOTE | 2019-01-26 09:30 | NUR ---
NURSE NOTES: Patient requesting to eat breakfast. Spoke with RT Megan to switch BIPAP, initially was placed on 4L O2 via NC. O2 saturation 84-88%. Notified RT, placed on venturi mask 55%. Patient saturating 90-91, able to tolerate oral feeding, no acute distress noted.
--- NOTE | 2019-01-26 09:39 | NUR ---
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 UTI E-COLI . LABILE HTN VS: BP 128/68, P 104, T 98.4, RR 24, SpO2 92 RBC 3.98, H&H 109/33.7, CR 0.5 IS:ZANAFLEX 4mg PROTONIX 40mg BACLOFEN 10mg METFORMIN HCI 500mg CLONIDINE HCI 0.1mg ALBUTEROL 3ml HHN SDU STATUS
--- NOTE | 2019-01-26 10:11 | NUR ---
ST NOTE: SWALLOW/SPEECH/LANGUAGE/COGNITION STATUS: PT SEEN AT BEDSIDE IN AM. ALERT, COOPERATIVE, VERBAL. WITH NC(5L). VOICE IS CLEAR, BUT STILL HAS A WEAK COUGH. CHART REVIEWED. PER NURSING NOTE, PT DESATURATED LAST NIGHT TO 70s AND PT WAS PUT ON BIPAP. ATE WITH PT PARTIAL THE MEAL(BREAKFAST), PT TOLERATED SOFT, EASY CHEW, AND NECTAR THICK LIQUIDS, MILDLY INCREASED ORAL TRANSIT TIME(3 SECONDS), FAIR LARYNGEAL ELEVATION, NO OVERT S/S OF ASPIRATION WAS NOTED. HOWEVER, PT'S O2 SLOWLY WENT DOWN TO MID 80s. AND VENTURI MASK WITH FIO2: 55% WAS PUT ON BY RT. PT EXPRESSED THE WANT AND NEED TO EAT/DRINK BY MOUTH(PT LOVES FOOD). CONSERVATIVELY, HOLD PO UNTIL PT'S OVERALL RESPIRATORY STATUS IMPROVES. FOR QUALITY OF LIFE, CONTINUE CURRENT DIET(MODIFIED SOFT, EASY CHEW WITH NECTAR THICK LIQUIDS) WITH STRICT ASPIRATION PRECAUTIONS WITH 1TO1 FEEDING. D/W RN, MOISES AND SUE HANSON AND THE STAFF
[2019-01-26 12:00] VITALS: BP 108/62
--- NOTE | 2019-01-26 13:16 | NUR ---
NURSE NOTES: Caregiver brought in patient's own medication Betaseron for 01/28/19 dose. Brought medication to pharmacy, Yuko received and logged.
--- NOTE | 2019-01-26 14:08 | NUR ---
*-* INSURANCE *-* UPDATED CLINICALS AND REVIEW HAVE BEEN FAXED TO: [facility] ..SHE WILL HANDLE THIS ADMISSION.. P- [phone] F- [phone].....REVIEW/CLINICAL
--- NOTE | 2019-01-26 14:11 | Infectious Diseases Prog Note ---
Assessment/Plan Assessment/Plan ASSESSMENT AND PLAN: 1. e.coli uti/pyelonephritis, pneumonia vs chf, atx, fevers, sputum culture - normal althea, CT chest noted recurrent fevers and sob, ? nosocomial infection, ? HCAP - change antibiotics to zosyn and vancomycin - recheck cultures - monitor labs and chest x-ray - d/w RN and patient 2. Multiple sclerosis. 3. elevated bp - in icu and on tx 4. Suprapubic catheter that is chronic, neurogenic bladder 5. Morbid obesity. 6. Quadriplegia. 7. Hypertension. 8. Hyperlipidemia. 9. Diabetes type 2. 10. Colonic polyps. 11. Anemia. 12. History of colonoscopy. 13. Social history is negative for smoking, alcohol, or drug abuse. 14. Family history is noncontributory. 15. Allergies to sulfa drugs. 16. MAR was noted. 17. Case was discussed with RN. 18. ROBBY care. 19. Wound Skin care protocol. 20. Continue treatment per Dr. Quiroz and consultants. Subjective Constitutional: Reports: fever HEENT: Reports: congestion Respiratory: Reports: shortness of breath Cardiovascular: Denies: chest pain Gastrointestinal/Abdominal: Denies: nausea, vomiting Neurologic: Denies: headache Psychiatric: Denies: depression Skin: Denies: rash Hematologic: Denies: bleeding Musculoskeletal: Denies: pain Allergies: Coded Allergies: SULFA (SULFONAMIDE ANTIBIOTICS) (Verified Allergy, Unknown, 11/22/17) Objective Vital Signs Last 24 Hour Vital Signs Date Time Temp Pulse Resp B/P (MAP) Pulse Ox O2 Delivery O2 Flow Rate FiO2 01/26/19 12:00 98.6 100 18 108/62 (77) 92 01/26/19 12:00 Bi-pap 01/26/19 10:44 100 92 01/26/19 09:00 106/55 01/26/19 09:00 91 106/55 01/26/19 08:00 100.6 91 18 106/55 (72) 94 01/26/19 08:00 Bi-pap 01/26/19 07:31 86 24 97 Facial 40 01/26/19 07:30 Bi-pap 70 01/26/19 07:30 98 Bi-pap 70 01/26/19 07:28 88 01/26/19 05:41 128/68 5/23/19 05:30 96 21 95 Facial 70 01/26/19 04:00 98.4 104 20 128/68 (88) 92 01/26/19 04:00 Bi-pap 01/26/19 03:55 102 31 95 Facial 70 01/26/19 03:25 105 01/26/19 01:05 109 22 90 Venturi Mask 8.0 40 01/26/19 00:50 104 20 91 Nasal Cannula 4.0 36 01/26/19 00:00 Nasal Cannula 5.0 01/26/19 00:00 98.2 98 22 137/77 (97) 93 01/25/19 23:45 92 01/25/19 21:50 123/64 01/25/19 20:44 117/66 01/25/19 20:15 98 20 96 Nasal Cannula 4.0 36 01/25/19 20:15 Nasal Cannula 4.0 36 01/25/19 20:15 96 Nasal Cannula 4.0 36 01/25/19 20:00 97.0 100 24 117/66 (83) 93 01/25/19 20:00 Nasal Cannula 5.0 01/25/19 19:28 95 01/25/19 17:42 104 117/78 01/25/19 16:24 96 01/25/19 16:00 99.1 104 18 140/81 (100) 97 01/25/19 16:00 Nasal Cannula 5.0 01/25/19 15:03 104 24 117/78 (91) 94 01/25/19 14:15 155/78 Height (Feet): 5 Height (Inches): 7.00 Weight (Pounds): 200 General Appearance: other - mild sob noted HEENT: normocephalic, atraumatic, anicteric, mucous membranes moist Respiratory/Chest: crackles/rales, rhonchi - bilaterally Cardiovascular: normal rate, regular rhythm, no gallop/murmur, no JVD Abdomen: normal bowel sounds, soft, non tender, no organomegaly, non distended Genitourinary: other - + weber, urine slt cloudy Extremities: no cyanosis Skin: no rash Neurologic/Psychiatric: alert, responsive Lymphatic: no neck adenopathy Musculoskeletal: no effusion Objective Chest x-ray - 01/16/19 - Comparison: 01/15/2019 A single view chest radiograph was obtained. Findings: Patchy infiltrates noted on the right upper lobe and possibly left lung base as well. Generalized interstitial and vascular prominence demonstrated although this may be slightly improved. IMPRESSION: Persistent right upper lobe infiltrate and probable infiltrate left lung base. This could be due to pneumonia or asymmetric edema. Improved interstitial edema over one day Chest x-ray - 01/18/19 - Comparison: 01/16/2019 A single view chest radiograph was obtained. Findings: Developing pulmonary vascular congestion demonstrated. The heart is enlarged. Vascularity is more prominent. IMPRESSION: Development of CHF Chest x-ray - 01/19/19 - Procedure: XRAY Chest 1v Indication: Cough Comparison: 01/18/2019 A single view chest radiograph was obtained. Findings: Prominent pulmonary vascularity and heart size are demonstrated. Small pleural effusions are not excluded. IMPRESSION: Pulmonary vascular congestion. No significant change CT chest: IMPRESSION: Large area of focal bullous emphysema involving the right lung base accounting for the lucency demonstrated on the recent chest x-ray. Generalized emphysema noted within the lungs especially in the upper lobes. Pulmonary edema. Bilateral pleural effusions larger on the right compared to left. Posterior basilar atelectasis and/or pneumonia. Chest x-ray - 01/24/19 - IMPRESSION: Development of a unusual lucency at the right lung base. Query cavitary lesion, not seen previously. Further evaluation with CT is recommended. Bilateral pleural effusions. Worsening CHF Labs Test 01/24/19 04:20 01/25/19 04:25 01/26/19 03:20 01/26/19 03:39 White Blood Count 7.7 K/UL (4.8-10.8) 8.5 K/UL (4.8-10.8) 9.9 K/UL (4.8-10.8) Red Blood Count 4.33 M/UL (4.20-5.40) 4.15 M/UL (4.20-5.40) 3.98 M/UL (4.20-5.40) Hemoglobin 11.8 G/DL (12.0-16.0) 11.5 G/DL (12.0-16.0) 10.9 G/DL (12.0-16.0) Hematocrit 36.7 % (37.0-47.0) 35.0 % (37.0-47.0) 33.7 % (37.0-47.0) Mean Corpuscular Volume 85 FL (80-99) 84 FL (80-99) 85 FL (80-99) Mean Corpuscular Hemoglobin 27.3 PG (27.0-31.0) 27.8 PG (27.0-31.0) 27.3 PG (27.0-31.0) Mean Corpuscular Hemoglobin Concent 32.2 G/DL (32.0-36.0) 32.9 G/DL (32.0-36.0) 32.2 G/DL (32.0-36.0) Red Cell Distribution Width 16.9 % (11.6-14.8) 16.9 % (11.6-14.8) 16.6 % (11.6-14.8) Platelet Count 428 K/UL (150-450) 408 K/UL (150-450) 432 K/UL (150-450) Mean Platelet Volume 6.6 FL (6.5-10.1) 7.2 FL (6.5-10.1) 7.1 FL (6.5-10.1) Neutrophils (%) (Auto) 70.8 % (45.0-75.0) 80.2 % (45.0-75.0) 82.2 % (45.0-75.0) Lymphocytes (%) (Auto) 21.6 % (20.0-45.0) 13.8 % (20.0-45.0) 13.5 % (20.0-45.0) Monocytes (%) (Auto) 3.4 % (1.0-10.0) 3.7 % (1.0-10.0) 3.5 % (1.0-10.0) Eosinophils (%) (Auto) 3.2 % (0.0-3.0) 1.8 % (0.0-3.0) 0.6 % (0.0-3.0) Basophils (%) (Auto) 1.0 % (0.0-2.0) 0.5 % (0.0-2.0) 0.3 % (0.0-2.0) Sodium Level 141 MMOL/L (136-145) 140 MMOL/L (136-145) Potassium Level 4.3 MMOL/L (3.5-5.1) 3.7 MMOL/L (3.5-5.1) Chloride Level 101 MMOL/L (98-107) 100 MMOL/L (98-107) Carbon Dioxide Level 36 MMOL/L (21-32) 36 MMOL/L (21-32) Anion Gap 4 mmol/L (5-15) 4 mmol/L (5-15) Blood Urea Nitrogen 16 mg/dL (7-18) 15 mg/dL (7-18) Creatinine 0.6 MG/DL (0.55-1.30) 0.5 MG/DL (0.55-1.30) Estimat Glomerular Filtration Rate mL/min (>60) mL/min (>60) Glucose Level 100 MG/DL (74-106) 105 MG/DL (74-106) Calcium Level 9.7 MG/DL (8.5-10.1) 9.0 MG/DL (8.5-10.1) Magnesium Level 1.8 MG/DL (1.8-2.4) Total Bilirubin 0.2 MG/DL (0.2-1.0) Aspartate Amino Transf (AST/SGOT) 13 U/L (15-37) Alanine Aminotransferase (ALT/SGPT) 16 U/L (12-78) Alkaline Phosphatase 109 U/L (46-116) Total Protein 8.0 G/DL (6.4-8.2) Albumin 2.6 G/DL (3.4-5.0) Globulin 5.4 g/dL Albumin/Globulin Ratio 0.5 (1.0-2.7) Arterial Blood pH 7.410 (7.350-7.450) Arterial Blood Partial Pressure CO2 53.4 mmHg (35.0-45.0) Arterial Blood Partial Pressure O2 58.3 mmHg (75.0-100.0) Arterial Blood HCO3 33.1 mmol/L (22.0-26.0) Arterial Blood Oxygen Saturation 88.5 % (95-100) Arterial Blood Base Excess 7.1 (-2-2) Juve Test Positive Microbiology Date/Time Source Procedure Growth Status 01/15/19 16:37 Blood Blood Culture - Final NO GROWTH AFTER 5 DAYS Complete 01/17/19 04:00 Sputum Induced Gram Stain - Final Complete 01/17/19 04:00 Sputum Induced Sputum Culture - Final NORMAL UPPER RESPIRATORY ALTHEA PRESENT Complete 01/15/19 16:14 Urine,Clean Catch Urine Culture - Final Escherichia Coli Complete Current Medications Medications (Trade) Dose Ordered Sig/Mj Route PRN Reason Start Time Stop Time Status Last Admin Dose Admin Acetaminophen (Tylenol) 650 mg Q4H PRN ORAL Mild Pain/Temp > 100.5 01/25/19 16:00 02/15/19 15:59 01/25/19 17:56 Albuterol/ Ipratropium (Albuterol/ Ipratropium) 3 ml Q4H PRN HHN Shortness of Breath 01/25/19 16:00 01/27/19 15:59 01/26/19 00:50 Amlodipine Besylate (Norvasc) 5 mg BID ORAL 01/25/19 18:00 02/22/19 17:59 01/25/19 17:42 Atorvastatin Calcium (Lipitor) 10 mg BEDTIME ORAL 01/25/19 21:00 02/15/19 20:59 01/25/19 20:43 Baclofen (Lioresal) 10 mg THREE TIMES A DAY ORAL 01/25/19 18:00 02/15/19 08:59 01/26/19 13:33 Ceftriaxone Sodium 1 gm/ Dextrose 50 ml @ 100 mls/hr Q24H IVPB 01/25/19 16:00 02/01/19 15:59 01/25/19 17:57 Clonidine HCl (Catapres Tab) 0.1 mg EVERY 8 HOURS ORAL 01/25/19 22:00 02/21/19 13:59 01/26/19 05:41 Guaifenesin/ Codeine Phosphate (Robitussin with codeine) 5 ml Q6H PRN ORAL For Cough 01/25/19 21:00 02/16/19 20:59 01/26/19 00:22 Hydralazine HCl (Apresoline) 10 mg Q6H PRN IV SBP >170 01/25/19 16:30 02/20/19 16:29 Lisinopril (Prinivil) 20 mg Q12HR ORAL 01/25/19 21:00 02/20/19 12:59 01/25/19 20:44 Metformin HCl (Glucophage) 500 mg TWICE A DAY ORAL 01/25/19 18:00 02/15/19 08:59 01/26/19 08:55 Pantoprazole (Protonix) 40 mg DAILY ORAL 01/26/19 09:00 02/15/19 08:59 01/26/19 08:56 Patient Own Medication (Patient's Own Med) 1 ea QOD SUBQ 01/26/19 09:00 02/17/19 08:59 01/26/19 08:56 Polyethylene Glycol (Miralax) 17 gm DAILY ORAL 01/26/19 09:00 02/21/19 08:59 01/26/19 08:56 Tizanidine HCl (Zanaflex) 4 mg THREE TIMES A DAY ORAL 01/25/19 18:00 02/15/19 08:59 01/26/19 13:33 Trazodone HCl (Desyrel) 100 mg BEDTIME PRN ORAL insomnia 01/25/19 21:00 02/19/19 02:34 Carroll Miller MD January 26, 2019 14:11
--- NOTE | 2019-01-26 15:55 | NUR ---
RD ASSESSMENT & RECOMMENDATIONS SEE CARE ACTIVITY FOR COMPLETE ASSESSMENT DAILY ESTIMATED NEEDS: Needs based on Pulmonary, obese, wounds 78kg adj 20-25 kcals/kg 6301-8109 total kcals 1.25-1.5 g protein/kg 98-117 g total protein 20-25 mL/kg 1198-5763 total fluid mLs NUTRITION DIAGNOSIS: 1) Decreased sodium and fat intake needs R/T cardiac hx, PNA as evidenced by on diuretics, HTN, BMI >40, pt is @ 191% [place] Body Weight. 2) Self feeding difficulty r/t MS as evidenced by pt w/ BL UE contractures, requires 1:1 feedings. CURRENT DIET: CCHO MED soft easy chew + NTL PO DIET RECOMMENDATIONS: Cardiac, CCHO MED (texture per INSTRUMENT INSPECTOR) ADDITIONAL RECOMMENDATIONS: 1) Wound Care: add ERI BID + MVI x1 + Vit C 250mg daily 2) A1C for eval (need for diet change to ccho low w/ 2x prot) 3) RE-CALIBRATE BED SCALE FOR ACCURATE CBW, currently reads in error 4) Add HIGH protein snacks in b/w meals .
[2019-01-26 16:00] VITALS: BP 114/54
--- NOTE | 2019-01-26 16:58 | Surgery Progress Note ---
Surgery Progress Note Subjective Symptoms: improved, pain absent, tolerating diet, passing flatus, BM Objective Last 24 Hour Vital Signs Date Time Temp Pulse Resp B/P (MAP) Pulse Ox O2 Delivery O2 Flow Rate FiO2 01/26/19 16:00 Venturi Mask 01/26/19 14:00 108/62 01/26/19 12:00 98.6 100 18 108/62 (77) 92 01/26/19 12:00 Bi-pap 01/26/19 11:44 97 01/26/19 10:44 100 92 01/26/19 09:00 106/55 01/26/19 09:00 91 106/55 01/26/19 08:00 100.6 91 18 106/55 (72) 94 01/26/19 08:00 Bi-pap 01/26/19 07:31 86 24 97 Facial 40 01/26/19 07:30 Bi-pap 70 01/26/19 07:30 98 Bi-pap 70 01/26/19 07:28 88 01/26/19 05:41 128/68 01/26/19 05:30 96 21 95 Facial 70 01/26/19 04:00 98.4 104 20 128/68 (88) 92 01/26/19 04:00 Bi-pap 01/26/19 03:55 102 31 95 Facial 70 01/26/19 03:25 105 01/26/19 01:05 109 22 90 Venturi Mask 8.0 40 01/26/19 00:50 104 20 91 Nasal Cannula 4.0 36 01/26/19 00:00 Nasal Cannula 5.0 01/26/19 00:00 98.2 98 22 137/77 (97) 93 01/25/19 23:45 92 01/25/19 21:50 123/64 01/25/19 20:44 117/66 01/25/19 20:15 98 20 96 Nasal Cannula 4.0 36 01/25/19 20:15 Nasal Cannula 4.0 36 01/25/19 20:15 96 Nasal Cannula 4.0 36 01/25/19 20:00 97.0 100 24 117/66 (83) 93 01/25/19 20:00 Nasal Cannula 5.0 01/25/19 19:28 95 01/25/19 17:42 104 117/78 I&O Intake and Output 01/25/19 01/26/19 19:00 07:00 Intake Total 720 ml 300 ml Output Total 1150 ml 1000 ml Balance -430 ml -700 ml Intake Oral 670 ml 300 ml IV Total 50 ml Output Urine Total 1150 ml 1000 ml Dressing: dry Wound: clean Cardiovascular: RSR Respiratory: clear Abdomen: soft, non-tender, present bowel sounds, non-distended Extremities: no tenderness, no cyanosis Laboratory Tests Test 01/26/19 03:20 01/26/19 03:39 White Blood Count 9.9 K/UL (4.8-10.8) Red Blood Count 3.98 M/UL (4.20-5.40) L Hemoglobin 10.9 G/DL (12.0-16.0) L Hematocrit 33.7 % (37.0-47.0) L Mean Corpuscular Volume 85 FL (80-99) Mean Corpuscular Hemoglobin 27.3 PG (27.0-31.0) Mean Corpuscular Hemoglobin Concent 32.2 G/DL (32.0-36.0) Red Cell Distribution Width 16.6 % (11.6-14.8) H Platelet Count 432 K/UL (150-450) Mean Platelet Volume 7.1 FL (6.5-10.1) Neutrophils (%) (Auto) 82.2 % (45.0-75.0) H Lymphocytes (%) (Auto) 13.5 % (20.0-45.0) L Monocytes (%) (Auto) 3.5 % (1.0-10.0) Eosinophils (%) (Auto) 0.6 % (0.0-3.0) Basophils (%) (Auto) 0.3 % (0.0-2.0) Sodium Level 140 MMOL/L (136-145) Potassium Level 3.7 MMOL/L (3.5-5.1) Chloride Level 100 MMOL/L (98-107) Carbon Dioxide Level 36 MMOL/L (21-32) H Anion Gap 4 mmol/L (5-15) L Blood Urea Nitrogen 15 mg/dL (7-18) Creatinine 0.5 MG/DL (0.55-1.30) L Estimat Glomerular Filtration Rate mL/min (>60) Glucose Level 105 MG/DL (74-106) Calcium Level 9.0 MG/DL (8.5-10.1) Arterial Blood pH 7.410 (7.350-7.450) Arterial Blood Partial Pressure CO2 53.4 mmHg (35.0-45.0) H Arterial Blood Partial Pressure O2 58.3 mmHg (75.0-100.0) L Arterial Blood HCO3 33.1 mmol/L (22.0-26.0) H Arterial Blood Oxygen Saturation 88.5 % (95-100) *L Arterial Blood Base Excess 7.1 (-2-2) H Juve Test Positive Plan Problems: (1) Decubital ulcer Assessment & Plan: Pt presented on admission with multiple ,Pressure injuries, MASD bilateral breasts folds, abd folds, bilateral groin and medial aspects of both thighs. Erythema with denuded skin noted to affected areas. Moisture intertrigo noted to R groin. Scattered Nevi noted to back and medial aspects of both upper thighs.Pt also noted to have numerous skin tags medial upper thighs. Resolving pressure injury noted to sacral area.Base of wound with pink epithelial with surrounding hyperpigmentation .Small wound noted at sacrococcygeal area(L)1.0cm x (W)0.9cm. Base of wound is moist and viable. Hyperpigmentation from previous pressure injury noted in crevices of skin R ischium. Caregiver at bedside and stated pt has Hx of Recurrent pressure injuries to sacrum and R ischium.Hyperpigmentation noted to L ischium. L heel boggy with non-blanchable erythema non-tender when palpated. Non-blanchable erythema with fluctuance at base medial aspect of R heel. (L) 1.5cm x (W)2.3cm Edemae and Foot drop noted to both feet. Eschar with surrounding erythema noted to R 1st metatarsal head. Small amt purulent exudate noted when wound minimally palpated. Small partial thickness ulcers without exudate noted to dorsum of R 2nd,3rd,4th and 5th metatarsals.Wounds are erythematous at base .Periwound metatarsals are pale and shiny. Tx.Plan: Wash skin folds of both breasts and abd folds with soap and water. Apply Light dusting of Antifungal powder every shift. Apply Triad Paste to buttocks both ischial areas, bilat groin and medial / posterior aspects of both upper thighs with each incontinence care. Apply Triad Paste to sacrum.Cover with Optifoam drsg. Change every 3 days and prn. Swab R 1st metatarsal head with Betadine. Cover with Optifoam drsg Daily and prn. Apply Cavilon to both heels .Cover each heel with Optifoam drsg.Change every 7 days and prn. Apply Betadine to dorsals of 2nd,3rd,4th and 5th metatarsals. Bariatric bed with Air fluidized mattress. Reposition at least every 2hours or as tolerated. Off-load heels with pillow. (2) Multiple sclerosis (3) Obstipation Assessment & Plan: abdomen distended KUB noted and okay exam without tenderness decreased bowel sounds cont with diet will follow with exam (4) Urinary tract infection (5) Hypoxemia (6) Tachycardia (7) Pneumonia Assessment & Plan: Large area of focal bullous emphysema involving the right lung base accounting for the lucency demonstrated on the recent chest x-ray. Generalized emphysema noted within the lungs especially in the upper lobes. Pulmonary edema. Bilateral pleural effusions larger on the right compared to left. Posterior basilar atelectasis and/or pneumonia. (8) Obesities, morbid Assessment & Plan: DAILY ESTIMATED NEEDS: Needs based on Pulmonary, obese 78kg adj 20-25 kcals/kg 5178-9961 total kcals 1-1.5 g protein/kg 78-117 g total protein Fluid per MD, on lasix NUTRITION DIAGNOSIS: 1) Decreased sodium and fat intake needs R/T cardiac hx, PNA as evidenced by on diuretics, HTN, BMI >40, pt is @191% [place] Body Weight. 2) Self feeding difficulty r/t MS as evidenced by pt w/ BL UE contractures, requires 1:1 feedings. PO DIET RECOMMENDATIONS: Cardiac, CCHO MED (texture per AIRFIELD DEFENCE GUARD) ---- ADDITIONAL RECOMMENDATIONS: 1) [employer] GUARD eval for appropriate texture (h/o MS w/ contractures, need for 1:1) 2) Wound Care: photos noted, pending MD kathleen 3) A1C for eval (need for diet change to ccho low w/ 2x prot) 4) Check lytes daily on lasix, replete as needed (Mg 1.6) (9) Encounter for generalized patient complaints John [place] January 26, 2019 16:58
[2019-01-26] MEDS ORDERED: Vancomycin 1gm/D5W 275ml IVPB SCH ×2 (17:00)
--- NOTE | 2019-01-26 17:11 | Pulmonology Progress Note ---
Assessment/Plan Assessment/Plan 1. Pneumonia 2. UTI with chronic suprapubic catheter, e coli 3. Multiple sclerosis. 4. Sinus tachycardia 5. Diabetes. 6. Hyponatremia. 7. Neurogenic bladder. 8. Hypertension. 9. Hyperlipidemia. 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 effusions, atelectasis congested, ABG last night mild resp acidosis low sat, ok on ventimask CT with effusions, atelectasis, bullous emphysema abx changed per ID disc w RN, CG Subjective Respiratory: Reports: productive cough Allergies: Coded Allergies: SULFA (SULFONAMIDE ANTIBIOTICS) (Verified Allergy, Unknown, 11/22/17) Objective Last 24 Hour Vital Signs Date Time Temp Pulse Resp B/P (MAP) Pulse Ox O2 Delivery O2 Flow Rate FiO2 01/26/19 16:00 112 01/26/19 16:00 Venturi Mask 01/26/19 16:00 99.9 102 18 114/54 (74) 92 01/26/19 14:00 108/62 01/26/19 12:00 98.6 100 18 108/62 (77) 92 01/26/19 12:00 Bi-pap 01/26/19 11:44 97 01/26/19 10:44 100 92 01/26/19 09:00 106/55 01/26/19 09:00 91 106/55 01/26/19 08:00 100.6 91 18 106/55 (72) 94 01/26/19 08:00 Bi-pap 01/26/19 07:31 86 24 97 Facial 40 01/26/19 07:30 Bi-pap 70 01/26/19 07:30 98 Bi-pap 70 01/26/19 07:28 88 01/26/19 05:41 128/68 01/26/19 05:30 96 21 95 Facial 70 01/26/19 04:00 98.4 104 20 128/68 (88) 92 01/26/19 04:00 Bi-pap 01/26/19 03:55 102 31 95 Facial 70 01/26/19 03:25 105 01/26/19 01:05 109 22 90 Venturi Mask 8.0 40 01/26/19 00:50 104 20 91 Nasal Cannula 4.0 36 01/26/19 00:00 Nasal Cannula 5.0 01/26/19 00:00 98.2 98 22 137/77 (97) 93 01/25/19 23:45 92 01/25/19 21:50 123/64 01/25/19 20:44 117/66 01/25/19 20:15 98 20 96 Nasal Cannula 4.0 36 01/25/19 20:15 Nasal Cannula 4.0 36 01/25/19 20:15 96 Nasal Cannula 4.0 36 01/25/19 20:00 97.0 100 24 117/66 (83) 93 01/25/19 20:00 Nasal Cannula 5.0 01/25/19 19:28 95 01/25/19 17:42 104 117/78 Intake and Output 01/25/19 01/26/19 19:00 07:00 Intake Total 720 ml 300 ml Output Total 1150 ml 1000 ml Balance -430 ml -700 ml Intake Oral 670 ml 300 ml IV Total 50 ml Output Urine Total 1150 ml 1000 ml Objective obese General Appearance: no acute distress HEENT: atraumatic Respiratory/Chest: decreased breath sounds Cardiovascular: regular rhythm, tachycardia Abdomen: soft, non tender Laboratory Tests 01/26/19 03:20: White Blood Count 9.9, Red Blood Count 3.98L, Hemoglobin 10.9L, Hematocrit 33.7L , Mean Corpuscular Volume 85, Mean Corpuscular Hemoglobin 27.3, Mean Corpuscular Hemoglobin Concent 32.2, Red Cell Distribution Width 16.6H, Platelet Count 432, Mean Platelet Volume 7.1, Neutrophils (%) (Auto) 82.2H, Lymphocytes (%) (Auto) 13.5L, Monocytes (%) (Auto) 3.5, Eosinophils (%) (Auto) 0.6, Basophils (%) (Auto) 0.3, Sodium Level 140, Potassium Level 3.7, Chloride Level 100, Carbon Dioxide Level 36H, Anion Gap 4L, Blood Urea Nitrogen 15, Creatinine 0.5L, Estimat Glomerular Filtration Rate , Glucose Level 105, Calcium Level 9.0 01/26/19 03:39: Arterial Blood pH 7.410, Arterial Blood Partial Pressure CO2 53.4H, Arterial Blood Partial Pressure O2 58.3L, Arterial Blood HCO3 33.1H, Arterial Blood Oxygen Saturation 88.5*L, Arterial Blood Base Excess 7.1H, Juve Test Positive 01/26/19 15:30: Urine Color [Pending], Urine Appearance [Pending], Urine pH [Pending], Urine Specific [place] [Pending], Urine Protein [Pending], Urine Glucose (UA) [Pending ], Urine Ketones [Pending], Urine Blood [Pending], Urine Nitrite [Pending], Urine Bilirubin [Pending], Urine Urobilinogen [Pending], Urine Leukocyte Esterase [Pending] Current Medications Medications (Trade) Dose Ordered Sig/Mj Route PRN Reason Start Time Stop Time Status Last Admin Dose Admin Acetaminophen (Tylenol) 650 mg Q4H PRN ORAL Mild Pain/Temp > 100.5 01/25/19 16:00 02/15/19 15:59 01/25/19 17:56 Albuterol/ Ipratropium (Albuterol/ Ipratropium) 3 ml Q4H PRN HHN Shortness of Breath 01/25/19 16:00 01/27/19 15:59 01/26/19 00:50 Amlodipine Besylate (Norvasc) 5 mg BID ORAL 01/25/19 18:00 02/22/19 17:59 01/25/19 17:42 Atorvastatin Calcium (Lipitor) 10 mg BEDTIME ORAL 01/25/19 21:00 02/15/19 20:59 01/25/19 20:43 Baclofen (Lioresal) 10 mg THREE TIMES A DAY ORAL 01/25/19 18:00 02/15/19 08:59 01/26/19 13:33 Clonidine HCl (Catapres Tab) 0.1 mg EVERY 8 HOURS ORAL 01/25/19 22:00 02/21/19 13:59 01/26/19 05:41 Guaifenesin/ Codeine Phosphate (Robitussin with codeine) 5 ml Q6H PRN ORAL For Cough 01/25/19 21:00 02/16/19 20:59 01/26/19 00:22 Hydralazine HCl (Apresoline) 10 mg Q6H PRN IV SBP >170 01/25/19 16:30 02/20/19 16:29 Lisinopril (Prinivil) 20 mg Q12HR ORAL 01/25/19 21:00 02/20/19 12:59 01/25/19 20:44 Metformin HCl (Glucophage) 500 mg TWICE A DAY ORAL 01/25/19 18:00 02/15/19 08:59 01/26/19 08:55 Pantoprazole (Protonix) 40 mg DAILY ORAL 01/26/19 09:00 02/15/19 08:59 01/26/19 08:56 Patient Own Medication (Patient's Own Med) 1 ea QOD SUBQ 01/26/19 09:00 02/17/19 08:59 01/26/19 08:56 Piperacillin Sod/ Tazobactam Sod 3.375 gm/Dextrose 100 ml @ 25 mls/hr EVERY 8 HOURS IVPB 01/26/19 15:30 01/31/19 15:29 01/26/19 15:47 Polyethylene Glycol (Miralax) 17 gm DAILY ORAL 01/26/19 09:00 02/21/19 08:59 01/26/19 08:56 Tizanidine HCl (Zanaflex) 4 mg THREE TIMES A DAY ORAL 01/25/19 18:00 02/15/19 08:59 01/26/19 13:33 Trazodone HCl (Desyrel) 100 mg BEDTIME PRN ORAL insomnia 01/25/19 21:00 02/19/19 02:34 Vancomycin HCl (Vanco rx to dose) 1 ea DAILY PRN MISC Per rx protocol 01/26/19 14:30 02/25/19 14:29 Vancomycin HCl 750 mg/Sodium Chloride 275 ml @ 183.333 mls/hr Q12H IVPB 01/26/19 17:00 01/31/19 16:59 Robb Quiroz MD January 26, 2019 17:11
[2019-01-26 17:15] LABS: APPEARANCE,URINE CLOUDY; BILIRUBIN, URINE NEGATIVE (NEGATIVE); GLUCOSE, URINE (UA) NEGATIVE (NEGATIVE); KETONES,URINE NEGATIVE (NEGATIVE); LEUKOCYTE ESTERASE ,URINE 3+ (NEGATIVE); NITRITE,URINE NEGATIVE (NEGATIVE); PH,URINE 7 (4.5-8.0); PROTEIN,URINE 2+ (NEGATIVE); UROBILINOGEN,URINE NORMAL MG/DL (0.0-1.0)
[2019-01-26] MEDS: Vancomycin 750mg/NS 275ml IVPB SCH ×2 (17:15)
[2019-01-26 17:19] LABS: COLOR,URINE YELLOW
--- NOTE | 2019-01-26 18:32 | NUR ---
NURSE NOTES: Patient noted to tolerate Venturi Mask 55% since this morning. SpO2 90-94%, no acute respiratory distress noted. Will continue to monitor.
--- NOTE | 2019-01-26 19:04 | NUR ---
HAND-OFF: Report given to SHEMAR Go. Patient in stable condition.
--- NOTE | 2019-01-26 19:05 | NUR ---
NURSE NOTES: Received report from Hans Faust RN. Patient is awake in bed, arousable to name and light shaking, A/O x4. Sinus rhythm on cardiac care unit nurse. No s/s of acute distress noted. On 14L O2 @ 55% via Venturi Mask and saturating well. Suprapubic urinary catheter noted, intact and patent. Left hand 22g IV saline lock, intact and patent. Right wrist 20g IV saline lock, intact and patent. Bed locked in lowest position with side rails up x3. Call light left within reach. Will continue to monitor.
--- NOTE | 2019-01-26 19:44 | Cardiology Progress Note ---
Assessment/Plan Assessment/Plan 1. Hypotension, probably multifactorial, possibly volume related versus medication related (resolved) 2. Pneumonia. 3. Multiple sclerosis. 4. Diabetes mellitus. 5. Chronic suprapubic catheter. 6. Decubitus ulcers 7. MS (multiple sclerosis) 8. edema 9. Labiel htn blood cx neg sofar still urine cx postive off ivf on acie echo report noted nomral lv fxn tele personally rev. sinus off diuretic decerase clonidine otherwise will watch bp Subjective Cardiovascular: Denies: chest pain, lightheadedness Respiratory: Denies: shortness of breath Gastrointestinal/Abdominal: Denies: abdominal pain Genitourinary: Denies: burning Objective Last 24 Hour Vital Signs Date Time Temp Pulse Resp B/P (MAP) Pulse Ox O2 Delivery O2 Flow Rate FiO2 01/26/19 17:26 112 114/54 01/26/19 16:00 112 01/26/19 16:00 Venturi Mask 01/26/19 16:00 99.9 102 18 114/54 (74) 92 01/26/19 14:00 108/62 01/26/19 12:00 98.6 100 18 108/62 (77) 92 01/26/19 12:00 Bi-pap 01/26/19 11:44 97 01/26/19 10:44 100 92 01/26/19 09:00 106/55 01/26/19 09:00 91 106/55 01/26/19 08:00 100.6 91 18 106/55 (72) 94 01/26/19 08:00 Bi-pap 01/26/19 07:31 86 24 97 Facial 40 01/26/19 07:30 Bi-pap 70 01/26/19 07:30 98 Bi-pap 70 01/26/19 07:28 88 01/26/19 05:41 128/68 01/26/19 05:30 96 21 95 Facial 70 01/26/19 04:00 98.4 104 20 128/68 (88) 92 01/26/19 04:00 Bi-pap 01/26/19 03:55 102 31 95 Facial 70 01/26/19 03:25 105 01/26/19 01:05 109 22 90 Venturi Mask 8.0 40 01/26/19 00:50 104 20 91 Nasal Cannula 4.0 36 01/26/19 00:00 Nasal Cannula 5.0 01/26/19 00:00 98.2 98 22 137/77 (97) 93 01/25/19 23:45 92 01/25/19 21:50 123/64 01/25/19 20:44 117/66 01/25/19 20:15 98 20 96 Nasal Cannula 4.0 36 01/25/19 20:15 Nasal Cannula 4.0 36 01/25/19 20:15 96 Nasal Cannula 4.0 36 01/25/19 20:00 97.0 100 24 117/66 (83) 93 01/25/19 20:00 Nasal Cannula 5.0 General Appearance: no apparent distress, alert, obese, patient on isolation Neck: no JVD Cardiovascular: normal rate, regular rhythm Respiratory/Chest: lungs clear Abdomen: normal bowel sounds, non tender, soft Extremities: trace edema Intake and Output 01/25/19 01/26/19 19:00 07:00 Intake Total 720 ml 300 ml Output Total 1150 ml 1000 ml Balance -430 ml -700 ml Intake Oral 670 ml 300 ml IV Total 50 ml Output Urine Total 1150 ml 1000 ml Laboratory Tests Test 01/26/19 03:20 01/26/19 03:39 01/26/19 15:30 White Blood Count 9.9 K/UL (4.8-10.8) Red Blood Count 3.98 M/UL (4.20-5.40) L Hemoglobin 10.9 G/DL (12.0-16.0) L Hematocrit 33.7 % (37.0-47.0) L Mean Corpuscular Volume 85 FL (80-99) Mean Corpuscular Hemoglobin 27.3 PG (27.0-31.0) Mean Corpuscular Hemoglobin Concent 32.2 G/DL (32.0-36.0) Red Cell Distribution Width 16.6 % (11.6-14.8) H Platelet Count 432 K/UL (150-450) Mean Platelet Volume 7.1 FL (6.5-10.1) Neutrophils (%) (Auto) 82.2 % (45.0-75.0) H Lymphocytes (%) (Auto) 13.5 % (20.0-45.0) L Monocytes (%) (Auto) 3.5 % (1.0-10.0) Eosinophils (%) (Auto) 0.6 % (0.0-3.0) Basophils (%) (Auto) 0.3 % (0.0-2.0) Sodium Level 140 MMOL/L (136-145) Potassium Level 3.7 MMOL/L (3.5-5.1) Chloride Level 100 MMOL/L (98-107) Carbon Dioxide Level 36 MMOL/L (21-32) H Anion Gap 4 mmol/L (5-15) L Blood Urea Nitrogen 15 mg/dL (7-18) Creatinine 0.5 MG/DL (0.55-1.30) L Estimat Glomerular Filtration Rate mL/min (>60) Glucose Level 105 MG/DL (74-106) Calcium Level 9.0 MG/DL (8.5-10.1) Arterial Blood pH 7.410 (7.350-7.450) Arterial Blood Partial Pressure CO2 53.4 mmHg (35.0-45.0) H Arterial Blood Partial Pressure O2 58.3 mmHg (75.0-100.0) L Arterial Blood HCO3 33.1 mmol/L (22.0-26.0) H Arterial Blood Oxygen Saturation 88.5 % (95-100) *L Arterial Blood Base Excess 7.1 (-2-2) H Juve Test Positive Urine Color Yellow Urine Appearance Cloudy Urine pH 7 (4.5-8.0) Urine Specific [place] 1.015 (1.005-1.035) Urine Protein 2+ (NEGATIVE) H Urine Glucose (UA) Negative (NEGATIVE) Urine Ketones Negative (NEGATIVE) Urine Blood 2+ (NEGATIVE) H Urine Nitrite Negative (NEGATIVE) Urine Bilirubin Negative (NEGATIVE) Urine Urobilinogen Normal MG/DL (0.0-1.0) Urine Leukocyte Esterase 3+ (NEGATIVE) H Urine RBC 5-10 /HPF (0 - 2) H Urine WBC Tntc /HPF (0 - 2) H Urine Squamous Epithelial Cells Many /LPF (NONE/OCC) H Urine Bacteria Many /HPF (NONE) H Krishna Perry MD January 26, 2019 19:44
[2019-01-26 20:00] VITALS: BP 156/67
--- NOTE | 2019-01-26 21:06 | NUR ---
NURSE NOTES: Received new order from Dr. Gabriella MD. Noted and carried out.
[2019-01-26] MEDS: TraZODone 100mg tab ORAL PRN (21:41)
[2019-01-26] MEDS: Solu-MEDROL 40mg Inj IVP SCH (21:42)
[2019-01-27] VITALS: BP 132/70
[2019-01-27 04:00] VITALS: BP 145/77
[2019-01-27] MEDS: Vancomycin 750mg/NS 275ml IVPB SCH ×4 (04:41→16:45)
[2019-01-27 05:13] LABS: HEMATOCRIT 34.7 % (37.0-47.0); HEMOGLOBIN 11.2 G/DL (12.0-16.0); MEAN CORPUSCULAR VOLUME 84 FL (80-99); PLATELET COUNT 452 K/UL (150-450); RED CELL DISTRIBUTION WIDTH 16.4 % (11.6-14.8); WHITE BLOOD COUNT 10.3 K/UL (4.8-10.8)
[2019-01-27 06:48] LABS: ALANINE AMINOTRANSFERASE 14 U/L (12-78); ALBUMIN 2.4 G/DL (3.4-5.0); ALBUMIN/GLOBULIN RATIO 0.5 (1.0-2.7); ALKALINE PHOSPHATASE 111 U/L (46-116); ANION GAP 5 mmol/L (5-15); ASPARTATE AMINO TRANSFERASE 17 U/L (15-37); BILIRUBIN,TOTAL 0.2 MG/DL (0.2-1.0); BLOOD UREA NITROGEN 16 mg/dL (7-18); CALCIUM 8.8 MG/DL (8.5-10.1); CARBON DIOXIDE 36 MMOL/L (21-32); CHLORIDE 99 MMOL/L (98-107); CREATININE 0.6 MG/DL (0.55-1.30); SODIUM 140 MMOL/L (136-145)
--- NOTE | 2019-01-27 07:00 | NUR ---
NURSE NOTES: Dr. Gabriella MD made aware of patient's potassium 6.0. Awaiting response.
--- NOTE | 2019-01-27 07:05 | NUR ---
HAND-OFF: Report given to Fabian Matthew RN and Hans Faust RN.
--- NOTE | 2019-01-27 07:07 | NUR ---
NURSE NOTES: Received report from SHEMAR Go. Observed patient in bed, awake, able to make needs known. Patient on 14L at 55% Venturi Mask, tolerating well, no acute respiratory distress noted. Sinus rhythm on substitute nurse. Right hand 22g saline lock intact and patent, left wrist 22g saline lock intact and patent. Suprapubic catheter patent and draining well. Bed locked and in lowest position, side rails up x3, call light within reach. Will continue to monitor.
--- NOTE | 2019-01-27 07:35 | NUR ---
NURSE NOTES: Dr Quiroz called back for orders, noted and carried out.
[2019-01-27 08:00] VITALS: BP 143/73
[2019-01-27] MEDS: metFORMIN 500mg tab ORAL SCH ×2 (08:17→17:11)
[2019-01-27] MEDS: Miralax 17gm pkt ORAL SCH (08:17)
[2019-01-27] MEDS: Lisinopril 20mg tab ORAL SCH ×2 (09:00→20:49)
--- NOTE | 2019-01-27 09:05 | Pulmonology Progress Note ---
Assessment/Plan Assessment/Plan 1. Pneumonia 2. UTI with chronic suprapubic catheter, e coli 3. Multiple sclerosis. 4. Sinus tachycardia 5. Diabetes. 6. Hyponatremia. 7. Neurogenic bladder. 8. Hypertension. 9. Hyperlipidemia. 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 effusions, atelectasis started steroids for COPD K 6.0 - lasix given abx per ID disc w RN Subjective Constitutional: Reports: no symptoms Respiratory: Reports: shortness of breath Allergies: Coded Allergies: SULFA (SULFONAMIDE ANTIBIOTICS) (Verified Allergy, Unknown, 11/22/17) Objective Last 24 Hour Vital Signs Date Time Temp Pulse Resp B/P (MAP) Pulse Ox O2 Delivery O2 Flow Rate FiO2 01/27/19 08:00 99.2 88 21 143/73 (96) 95 01/27/19 06:32 96 Bi-pap 50 01/27/19 06:32 Bi-pap 50 01/27/19 06:32 86 21 94 01/27/19 04:58 86 25 97 Facial 50 01/27/19 04:00 99.2 87 21 145/77 (99) 95 01/27/19 04:00 Bi-pap 01/27/19 03:34 91 01/27/19 02:59 86 22 96 Facial 55 01/27/19 00:35 91 22 94 Facial 55 01/27/19 00:00 Bi-pap 01/27/19 00:00 99.0 93 24 132/70 (90) 90 01/26/19 23:36 97 01/26/19 23:25 99 25 96 Facial 40 01/26/19 20:38 156/67 01/26/19 20:15 Venturi Mask 14.0 55 01/26/19 20:15 96 Venturi Mask 14.0 55 01/26/19 20:00 99.2 101 32 156/67 (96) 94 01/26/19 20:00 Venturi Mask 14.0 01/26/19 19:05 104 01/26/19 17:26 112 114/54 01/26/19 16:00 112 01/26/19 16:00 Venturi Mask 01/26/19 16:00 99.9 102 18 114/54 (74) 92 01/26/19 14:00 108/62 01/26/19 12:00 98.6 100 18 108/62 (77) 92 01/26/19 12:00 Bi-pap 01/26/19 11:44 97 01/26/19 10:44 100 92 Intake and Output 01/26/19 01/27/19 18:59 06:59 Intake Total 658.333 ml 681.86941 ml Output Total 300 ml 500 ml Balance 358.333 ml 181.07071 ml Intake Oral 400 ml 300 ml IV Total 258.333 ml 381.06877 ml Output Urine Total 300 ml 500 ml # Bowel Movements 1 Objective obese General Appearance: no acute distress HEENT: atraumatic Respiratory/Chest: lungs clear, decreased breath sounds Cardiovascular: regular rhythm, tachycardia Microbiology Date/Time Source Procedure Growth Status 01/26/19 15:30 Sputum Induced Gram Stain - Final Resulted 01/26/19 15:30 Sputum Induced Sputum Culture Pending Resulted 01/26/19 15:30 Urine,Suprapubic Urine Culture - Preliminary NO GROWTH Resulted Laboratory Tests 01/26/19 15:30: Urine Color Yellow, Urine Appearance Cloudy, Urine pH 7, Urine Specific [place] 1.015, Urine Protein 2+H, Urine Glucose (UA) Negative, Urine Ketones Negative, Urine Blood 2+H, Urine Nitrite Negative, Urine Bilirubin Negative, Urine Urobilinogen Normal, Urine Leukocyte Esterase 3+H, Urine RBC 5-10H, Urine WBC TntcH, Urine Squamous Epithelial Cells ManyH, Urine Bacteria ManyH 01/27/19 04:20: White Blood Count 10.3, Red Blood Count 4.10L, Hemoglobin 11.2L, Hematocrit 34.7L, Mean Corpuscular Volume 84, Mean Corpuscular Hemoglobin 27.4, Mean Corpuscular Hemoglobin Concent 32.4, Red Cell Distribution Width 16.4H, Platelet Count 452H, Mean Platelet Volume 7.0, Neutrophils (%) (Auto) , Lymphocytes (%) (Auto) , Monocytes (%) (Auto) , Eosinophils (%) (Auto) , Basophils (%) (Auto) , Differential Total Cells Counted 100, Neutrophils % ( Manual) 95H, Lymphocytes % (Manual) 3L, Monocytes % (Manual) 2, Eosinophils % ( Manual) 0, Basophils % (Manual) 0, Band Neutrophils 0, Platelet Estimate Adequate, Platelet Morphology Normal, Anisocytosis 1+ 01/27/19 06:15: Sodium Level 140, Potassium Level 6.0#*H, Chloride Level 99, Carbon Dioxide Level 36H, Anion Gap 5, Blood Urea Nitrogen 16, Creatinine 0.6, Estimat Glomerular Filtration Rate , Glucose Level 88, Calcium Level 8.8, Total Bilirubin 0.2, Aspartate Amino Transf (AST/SGOT) 17, Alanine Aminotransferase ( ALT/SGPT) 14, Alkaline Phosphatase 111, Total Protein 7.2, Albumin 2.4L, Globulin 4.8, Albumin/Globulin Ratio 0.5L Current Medications Medications (Trade) Dose Ordered Sig/Mj Route PRN Reason Start Time Stop Time Status Last Admin Dose Admin Acetaminophen (Tylenol) 650 mg Q4H PRN ORAL Mild Pain/Temp > 100.5 01/25/19 16:00 02/15/19 15:59 01/25/19 17:56 Albuterol/ Ipratropium (Albuterol/ Ipratropium) 3 ml Q4H PRN HHN Shortness of Breath 01/25/19 16:00 01/27/19 15:59 01/26/19 00:50 Amlodipine Besylate (Norvasc) 5 mg BID ORAL 01/25/19 18:00 02/22/19 17:59 01/26/19 17:26 Atorvastatin Calcium (Lipitor) 10 mg BEDTIME ORAL 01/25/19 21:00 02/15/19 20:59 01/26/19 20:38 Baclofen (Lioresal) 10 mg EVERY 8 HOURS ORAL 01/27/19 06:00 02/15/19 08:59 01/27/19 05:44 Clonidine HCl (Catapres Tab) 0.1 mg BID ORAL 01/27/19 09:00 02/26/19 08:59 Guaifenesin/ Codeine Phosphate (Robitussin with codeine) 5 ml Q6H PRN ORAL For Cough 01/25/19 21:00 02/16/19 20:59 01/26/19 00:22 Hydralazine HCl (Apresoline) 10 mg Q6H PRN IV SBP >170 01/25/19 16:30 02/20/19 16:29 Lisinopril (Prinivil) 20 mg Q12HR ORAL 01/25/19 21:00 02/20/19 12:59 01/26/19 20:38 Metformin HCl (Glucophage) 500 mg TWICE A DAY ORAL 01/25/19 18:00 02/15/19 08:59 01/27/19 08:17 Methylprednisolone Sodium Succinate (Solu-MEDROL) 40 mg Q12H IVP 01/26/19 22:00 02/25/19 21:59 01/26/19 21:42 Pantoprazole (Protonix) 40 mg DAILY ORAL 01/26/19 09:00 02/15/19 08:59 01/27/19 08:17 Patient Own Medication (Patient's Own Med) 1 ea QOD SUBQ 01/26/19 09:00 02/17/19 08:59 01/26/19 08:56 Piperacillin Sod/ Tazobactam Sod 3.375 gm/Dextrose 100 ml @ 25 mls/hr EVERY 8 HOURS IVPB 01/26/19 15:30 01/31/19 15:29 01/27/19 05:45 Polyethylene Glycol (Miralax) 17 gm DAILY ORAL 01/26/19 09:00 02/21/19 08:59 01/27/19 08:17 Tizanidine HCl (Zanaflex) 4 mg THREE TIMES A DAY ORAL 01/25/19 18:00 02/15/19 08:59 01/27/19 08:18 Trazodone HCl (Desyrel) 100 mg BEDTIME PRN ORAL insomnia 01/25/19 21:00 02/19/19 02:34 01/26/19 21:41 Vancomycin HCl (Vanco rx to dose) 1 ea DAILY PRN MISC Per rx protocol 01/26/19 14:30 02/25/19 14:29 Vancomycin HCl 750 mg/Sodium Chloride 275 ml @ 183.333 mls/hr Q12H IVPB 01/26/19 17:00 01/31/19 16:59 01/27/19 04:41 Robb Quiroz MD January 27, 2019 09:05
--- NOTE | 2019-01-27 09:25 | NUR ---
ST NOTE: SWALLOW STATUS: DISCUSSED WITH , DR. NOLEN RE:PT'S CONDITIONS, EXPRESSED THE CONCERN THAT PT IS AT HIGH RISK FOR ASPIRATION. HOWEVER, PT WANTS TO EAT/DRINK BY MOUTH. PER MD, PT HAS SEVERE COPD, OKAY TO CONTINUE ORAL DIET FOR NOW WITH STRICT ASPIRATION PRECAUTIONS. WILL FOLLOW.
[2019-01-27] MEDS: Solu-MEDROL 40mg Inj IVP SCH ×2 (09:54→21:42)
--- NOTE | 2019-01-27 10:13 | NUR ---
*-* INSURANCE *-* UPDATED CLINICALS AND REVIEW HAVE BEEN FAXED TO: [facility] [place] ..SHE WILL HANDLE THIS ADMISSION.. P- [phone] F- [phone].....REVIEW/CLINICAL
--- NOTE | 2019-01-27 11:29 | Diagnostic Imaging Report ---
Indication: Dyspnea Comparison: 01/24/2019 A single view chest radiograph was obtained. Findings: Pulmonary vascular congestion demonstrated. Heart size is stable. Bilateral pleural effusions likely present. IMPRESSION: CHF. Bilateral pleural effusions. No significant change appreciated
[2019-01-27 12:00] VITALS: BP 130/72
--- NOTE | 2019-01-27 12:56 | NUR ---
RADIOLOGY DEPT., CHEST X-RAY DONE.-P.DYE
--- NOTE | 2019-01-27 13:46 | Surgery Progress Note ---
Surgery Progress Note Subjective Additional Comments no acute events. comfortable stable exam unchanged labs noted. Objective Last 24 Hour Vital Signs Date Time Temp Pulse Resp B/P (MAP) Pulse Ox O2 Delivery O2 Flow Rate FiO2 01/27/19 13:39 Venturi Mask 14.0 01/27/19 12:00 Nasal Cannula 4.0 01/27/19 12:00 98.5 84 18 130/72 (91) 92 01/27/19 12:00 86 01/27/19 09:00 111/56 01/27/19 09:00 111/56 01/27/19 09:00 91 111/56 01/27/19 08:00 99.2 88 21 143/73 (96) 95 01/27/19 08:00 Venturi Mask 14.0 01/27/19 08:00 88 01/27/19 06:32 96 Bi-pap 50 01/27/19 06:32 Bi-pap 50 01/27/19 06:32 86 21 94 01/27/19 04:58 86 25 97 Facial 50 01/27/19 04:00 99.2 87 21 145/77 (99) 95 01/27/19 04:00 Bi-pap 01/27/19 03:34 91 01/27/19 02:59 86 22 96 Facial 55 01/27/19 00:35 91 22 94 Facial 55 01/27/19 00:00 Bi-pap 01/27/19 00:00 99.0 93 24 132/70 (90) 90 01/26/19 23:36 97 01/26/19 23:25 99 25 96 Facial 40 01/26/19 20:38 156/67 01/26/19 20:15 Venturi Mask 14.0 55 01/26/19 20:15 96 Venturi Mask 14.0 55 01/26/19 20:00 99.2 101 32 156/67 (96) 94 01/26/19 20:00 Venturi Mask 14.0 01/26/19 19:05 104 01/26/19 17:26 112 114/54 01/26/19 16:00 112 01/26/19 16:00 Venturi Mask 14.0 01/26/19 16:00 99.9 102 18 114/54 (74) 92 01/26/19 14:00 108/62 I&O Intake and Output 01/26/19 01/27/19 19:00 07:00 Intake Total 658.333 ml 706.47794 ml Output Total 300 ml 500 ml Balance 358.333 ml 206.30951 ml Intake Oral 400 ml 300 ml IV Total 258.333 ml 406.36996 ml Output Urine Total 300 ml 500 ml # Bowel Movements 1 Dressing: saturated Wound: clean Drains: other Cardiovascular: RSR Respiratory: decreased breath sounds Abdomen: soft, distended, non-tender, present bowel sounds Extremities: no tenderness, no cyanosis Laboratory Tests Test 01/26/19 15:30 01/27/19 04:20 01/27/19 06:15 Urine Color Yellow Urine Appearance Cloudy Urine pH 7 (4.5-8.0) Urine Specific [place] 1.015 (1.005-1.035) Urine Protein 2+ (NEGATIVE) H Urine Glucose (UA) Negative (NEGATIVE) Urine Ketones Negative (NEGATIVE) Urine Blood 2+ (NEGATIVE) H Urine Nitrite Negative (NEGATIVE) Urine Bilirubin Negative (NEGATIVE) Urine Urobilinogen Normal MG/DL (0.0-1.0) Urine Leukocyte Esterase 3+ (NEGATIVE) H Urine RBC 5-10 /HPF (0 - 2) H Urine WBC Tntc /HPF (0 - 2) H Urine Squamous Epithelial Cells Many /LPF (NONE/OCC) H Urine Bacteria Many /HPF (NONE) H White Blood Count 10.3 K/UL (4.8-10.8) Red Blood Count 4.10 M/UL (4.20-5.40) L Hemoglobin 11.2 G/DL (12.0-16.0) L Hematocrit 34.7 % (37.0-47.0) L Mean Corpuscular Volume 84 FL (80-99) Mean Corpuscular Hemoglobin 27.4 PG (27.0-31.0) Mean Corpuscular Hemoglobin Concent 32.4 G/DL (32.0-36.0) Red Cell Distribution Width 16.4 % (11.6-14.8) H Platelet Count 452 K/UL (150-450) H Mean Platelet Volume 7.0 FL (6.5-10.1) Neutrophils (%) (Auto) % (45.0-75.0) Lymphocytes (%) (Auto) % (20.0-45.0) Monocytes (%) (Auto) % (1.0-10.0) Eosinophils (%) (Auto) % (0.0-3.0) Basophils (%) (Auto) % (0.0-2.0) Differential Total Cells Counted 100 Neutrophils % (Manual) 95 % (45-75) H Lymphocytes % (Manual) 3 % (20-45) L Monocytes % (Manual) 2 % (1-10) Eosinophils % (Manual) 0 % (0-3) Basophils % (Manual) 0 % (0-2) Band Neutrophils 0 % (0-8) Platelet Estimate Adequate Platelet Morphology Normal Anisocytosis 1+ Sodium Level 140 MMOL/L (136-145) Potassium Level 6.0 MMOL/L (3.5-5.1) #*H Chloride Level 99 MMOL/L (98-107) Carbon Dioxide Level 36 MMOL/L (21-32) H Anion Gap 5 mmol/L (5-15) Blood Urea Nitrogen 16 mg/dL (7-18) Creatinine 0.6 MG/DL (0.55-1.30) Estimat Glomerular Filtration Rate mL/min (>60) Glucose Level 88 MG/DL (74-106) Calcium Level 8.8 MG/DL (8.5-10.1) Total Bilirubin 0.2 MG/DL (0.2-1.0) Aspartate Amino Transf (AST/SGOT) 17 U/L (15-37) Alanine Aminotransferase (ALT/SGPT) 14 U/L (12-78) Alkaline Phosphatase 111 U/L (46-116) Total Protein 7.2 G/DL (6.4-8.2) Albumin 2.4 G/DL (3.4-5.0) L Globulin 4.8 g/dL Albumin/Globulin Ratio 0.5 (1.0-2.7) L Plan Problems: (1) Decubital ulcer Assessment & Plan: Pt presented on admission with multiple ,Pressure injuries, MASD bilateral breasts folds, abd folds, bilateral groin and medial aspects of both thighs. Erythema with denuded skin noted to affected areas. Moisture intertrigo noted to R groin. Scattered Nevi noted to back and medial aspects of both upper thighs.Pt also noted to have numerous skin tags medial upper thighs. Resolving pressure injury noted to sacral area.Base of wound with pink epithelial with surrounding hyperpigmentation .Small wound noted at sacrococcygeal area(L)1.0cm x (W)0.9cm. Base of wound is moist and viable. Hyperpigmentation from previous pressure injury noted in crevices of skin R ischium. Caregiver at bedside and stated pt has Hx of Recurrent pressure injuries to sacrum and R ischium.Hyperpigmentation noted to L ischium. L heel boggy with non-blanchable erythema non-tender when palpated. Non-blanchable erythema with fluctuance at base medial aspect of R heel. (L) 1.5cm x (W)2.3cm Edemae and Foot drop noted to both feet. Eschar with surrounding erythema noted to R 1st metatarsal head. Small amt purulent exudate noted when wound minimally palpated. Small partial thickness ulcers without exudate noted to dorsum of R 2nd,3rd,4th and 5th metatarsals.Wounds are erythematous at base .Periwound metatarsals are pale and shiny. Tx.Plan: Wash skin folds of both breasts and abd folds with soap and water. Apply Light dusting of Antifungal powder every shift. Apply Triad Paste to buttocks both ischial areas, bilat groin and medial / posterior aspects of both upper thighs with each incontinence care. Apply Triad Paste to sacrum.Cover with Optifoam drsg. Change every 3 days and prn. Swab R 1st metatarsal head with Betadine. Cover with Optifoam drsg Daily and prn. Apply Cavilon to both heels .Cover each heel with Optifoam drsg.Change every 7 days and prn. Apply Betadine to dorsals of 2nd,3rd,4th and 5th metatarsals. Bariatric bed with Air fluidized mattress. Reposition at least every 2hours or as tolerated. Off-load heels with pillow. (2) Multiple sclerosis (3) Obstipation Assessment & Plan: abdomen distended KUB noted and okay exam without tenderness cont with diet will follow with exam (4) Urinary tract infection (5) Hypoxemia (6) Tachycardia (7) Pneumonia Assessment & Plan: Large area of focal bullous emphysema involving the right lung base accounting for the lucency demonstrated on the recent chest x-ray. Generalized emphysema noted within the lungs especially in the upper lobes. Pulmonary edema. Bilateral pleural effusions larger on the right compared to left. Posterior basilar atelectasis and/or pneumonia. (8) Obesities, morbid Assessment & Plan: DAILY ESTIMATED NEEDS: Needs based on Pulmonary, obese 78kg adj 20-25 kcals/kg [id number] total kcals 1-1.5 g protein/kg 78-117 g total protein Fluid per MD, on lasix NUTRITION DIAGNOSIS: 1) Decreased sodium and fat intake needs R/T cardiac hx, PNA as evidenced by on diuretics, HTN, BMI >40, pt is @191% [place] Body Weight. 2) Self feeding difficulty r/t MS as evidenced by pt w/ BL UE contractures, requires 1:1 feedings. PO DIET RECOMMENDATIONS: Cardiac, CCHO MED (texture per MIX CRUSHER OPERATOR) ---- ADDITIONAL RECOMMENDATIONS: 1) MIX CRUSHER OPERATOR eval for appropriate texture (h/o MS w/ contractures, need for 1:1) 2) Wound Care: photos noted, pending MD eval 3) A1C for eval (need for diet change to ccho low w/ 2x prot) 4) Check lytes daily on lasix, replete as needed (Mg 1.6) (9) Encounter for generalized patient complaints John Toledo January 27, 2019 13:46
[2019-01-27 14:22] LABS: ANION GAP 6 mmol/L (5-15); BLOOD UREA NITROGEN 18 mg/dL (7-18); CALCIUM 9.4 MG/DL (8.5-10.1); CARBON DIOXIDE 36 MMOL/L (21-32); CHLORIDE 100 MMOL/L (98-107); CREATININE 0.7 MG/DL (0.55-1.30); POTASSIUM 4.2 MMOL/L (3.5-5.1); SODIUM 142 MMOL/L (136-145)
--- NOTE | 2019-01-27 14:58 | NUR ---
ARCHITECTURAL JOB CAPTAINPRODUCTION LABORER SI: PNA . UTI E-COLI . DECUBITAL ULCER VS: BP 143/73, P 91, T 99.2, RR 25, SpO2 96 RBC 4.10, H&H 11.2/34.7, K 6.0 CXR: CHF. Bilateral pleural effusions. IS:ZOSYN 100mlIVPB ZANAFLEX 4mg SOLU-MEDROL 40mg IVP METFORMIN 500mg LASIX 40mg IV VANCOMYCIN 275ml IVPB SDU STATUS
[2019-01-27 16:00] VITALS: BP 147/77
--- NOTE | 2019-01-27 16:18 | NUR ---
Social Work This Sw met with patient to discuss discharge planning needs. Patient remains alert/oriented x3, stating she is planning to discharge to home with 24 hour hired caregiver. Patient remains bedridden, has a hospital bed. Patient stating she has two electric wheelchairs, but does not use them. Patient will need an ambulance to transport to home. Patient express no further needs or concerns at this time.
--- NOTE | 2019-01-27 16:50 | NUR ---
NURSE NOTES: Dr Perry at bedside, observed patient on Venturi Mask, ordered to switch to NC 4L, SpO2 83-89%. Switched back to Venturi Mask 10L, 45%. SpO2 90-94%, no acute respiratory distress noted. Will continue to monitor.
--- NOTE | 2019-01-27 16:56 | Cardiology Progress Note ---
Assessment/Plan Assessment/Plan 1. Hypotension, probably multifactorial, possibly volume related versus medication related (resolved) 2. Pneumonia. 3. Multiple sclerosis. 4. Diabetes mellitus. 5. Chronic suprapubic catheter. 6. Decubitus ulcers 7. MS (multiple sclerosis) 8. edema 9. Labiel htn blood cx neg sofar still urine cx postive off ivf on acie echo report noted nomral lv fxn tele personally rev. sinus since some hypoxemia will restirt lasix 40 mg bid for 3 doses and decrease bp meds Subjective Cardiovascular: Denies: chest pain Respiratory: Reports: cough, shortness of breath Gastrointestinal/Abdominal: Denies: abdominal pain Genitourinary: Denies: burning Objective Last 24 Hour Vital Signs Date Time Temp Pulse Resp B/P (MAP) Pulse Ox O2 Delivery O2 Flow Rate FiO2 01/27/19 16:00 Venturi Mask 10.0 01/27/19 16:00 98.1 94 18 147/77 (100) 94 01/27/19 15:20 102 01/27/19 13:39 Venturi Mask 14.0 01/27/19 12:00 Nasal Cannula 4.0 01/27/19 12:00 98.5 84 18 130/72 (91) 92 01/27/19 12:00 86 01/27/19 09:00 111/56 01/27/19 09:00 111/56 01/27/19 09:00 91 111/56 01/27/19 08:00 99.2 88 21 143/73 (96) 95 01/27/19 08:00 Venturi Mask 14.0 01/27/19 08:00 88 01/27/19 06:32 96 Bi-pap 50 01/27/19 06:32 Bi-pap 50 01/27/19 06:32 86 21 94 01/27/19 04:58 86 25 97 Facial 50 01/27/19 04:00 99.2 87 21 145/77 (99) 95 01/27/19 04:00 Bi-pap 01/27/19 03:34 91 01/27/19 02:59 86 22 96 Facial 55 01/27/19 00:35 91 22 94 Facial 55 01/27/19 00:00 Bi-pap 01/27/19 00:00 99.0 93 24 132/70 (90) 90 01/26/19 23:36 97 01/26/19 23:25 99 25 96 Facial 40 01/26/19 20:38 156/67 01/26/19 20:15 Venturi Mask 14.0 55 01/26/19 20:15 96 Venturi Mask 14.0 55 01/26/19 20:00 99.2 101 32 156/67 (96) 94 01/26/19 20:00 Venturi Mask 14.0 01/26/19 19:05 104 01/26/19 17:26 112 114/54 General Appearance: no apparent distress, alert, patient on isolation Cardiovascular: normal rate Respiratory/Chest: lungs clear - ant Abdomen: normal bowel sounds, non tender, soft Extremities: moderate edema Intake and Output 01/26/19 01/27/19 19:00 07:00 Intake Total 658.333 ml 706.58666 ml Output Total 300 ml 500 ml Balance 358.333 ml 206.42778 ml Intake Oral 400 ml 300 ml IV Total 258.333 ml 406.28549 ml Output Urine Total 300 ml 500 ml # Bowel Movements 1 Laboratory Tests Test 01/27/19 04:20 01/27/19 06:15 01/27/19 13:18 White Blood Count 10.3 K/UL (4.8-10.8) Red Blood Count 4.10 M/UL (4.20-5.40) L Hemoglobin 11.2 G/DL (12.0-16.0) L Hematocrit 34.7 % (37.0-47.0) L Mean Corpuscular Volume 84 FL (80-99) Mean Corpuscular Hemoglobin 27.4 PG (27.0-31.0) Mean Corpuscular Hemoglobin Concent 32.4 G/DL (32.0-36.0) Red Cell Distribution Width 16.4 % (11.6-14.8) H Platelet Count 452 K/UL (150-450) H Mean Platelet Volume 7.0 FL (6.5-10.1) Neutrophils (%) (Auto) % (45.0-75.0) Lymphocytes (%) (Auto) % (20.0-45.0) Monocytes (%) (Auto) % (1.0-10.0) Eosinophils (%) (Auto) % (0.0-3.0) Basophils (%) (Auto) % (0.0-2.0) Differential Total Cells Counted 100 Neutrophils % (Manual) 95 % (45-75) H Lymphocytes % (Manual) 3 % (20-45) L Monocytes % (Manual) 2 % (1-10) Eosinophils % (Manual) 0 % (0-3) Basophils % (Manual) 0 % (0-2) Band Neutrophils 0 % (0-8) Platelet Estimate Adequate Platelet Morphology Normal Anisocytosis 1+ Sodium Level 140 MMOL/L (136-145) 142 MMOL/L (136-145) Potassium Level 6.0 MMOL/L (3.5-5.1) #*H 4.2 MMOL/L (3.5-5.1) Chloride Level 99 MMOL/L (98-107) 100 MMOL/L (98-107) Carbon Dioxide Level 36 MMOL/L (21-32) H 36 MMOL/L (21-32) H Anion Gap 5 mmol/L (5-15) 6 mmol/L (5-15) Blood Urea Nitrogen 16 mg/dL (7-18) 18 mg/dL (7-18) Creatinine 0.6 MG/DL (0.55-1.30) 0.7 MG/DL (0.55-1.30) Estimat Glomerular Filtration Rate mL/min (>60) mL/min (>60) Glucose Level 88 MG/DL (74-106) 143 MG/DL (74-106) H Calcium Level 8.8 MG/DL (8.5-10.1) 9.4 MG/DL (8.5-10.1) Total Bilirubin 0.2 MG/DL (0.2-1.0) Aspartate Amino Transf (AST/SGOT) 17 U/L (15-37) Alanine Aminotransferase (ALT/SGPT) 14 U/L (12-78) Alkaline Phosphatase 111 U/L (46-116) Total Protein 7.2 G/DL (6.4-8.2) Albumin 2.4 G/DL (3.4-5.0) L Globulin 4.8 g/dL Albumin/Globulin Ratio 0.5 (1.0-2.7) L Microbiology Date/Time Source Procedure Growth Status 01/26/19 15:30 Sputum Induced Gram Stain - Final Resulted 01/26/19 15:30 Sputum Induced Sputum Culture Pending Resulted 01/26/19 15:30 Urine,Suprapubic Urine Culture - Preliminary NO GROWTH Resulted Krishna Perry MD January 27, 2019 16:56
--- NOTE | 2019-01-27 19:04 | NUR ---
HAND-OFF: Report given to SHEMAR Go. Patient in stable condition.
--- NOTE | 2019-01-27 19:04 | NUR ---
NURSE NOTES: Received report from Hans Faust RN and Fabian Matthew RN. Patient is awake in bed, arousable to name and light shaking, A/O x4. Sinus rhythm on personnel monitor. No s/s of acute distress noted. On 10L O2 @ 45% via Venturi Mask and saturating well. Suprapubic urinary catheter noted, intact and patent. Left hand 22g IV saline lock, intact and patent. Right hand 20g IV saline lock, intact and patent. Bed alarmed, locked in lowest position with side rails up x3. Call light left within reach. Will continue to monitor.
[2019-01-27 20:00] VITALS: BP 145/87
[2019-01-27] MEDS: TraZODone 100mg tab ORAL PRN (21:42)
--- NOTE | 2019-01-27 23:15 | NUR ---
RESPIRATORY NOTE: Placed pt on current bipap setting. Foam tape on the bridge of the nose to prevent redness. Bipap plugged into red outlet. Alarms are on and audible. Will continue to monitor pt's progress.
[2019-01-28] VITALS: BP 120/65
[2019-01-28 04:00] VITALS: BP 138/74
[2019-01-28] MEDS: Vancomycin 750mg/NS 275ml IVPB SCH ×2 (04:30)
[2019-01-28 04:47] LABS: ALANINE AMINOTRANSFERASE 12 U/L (12-78); ALBUMIN 2.3 G/DL (3.4-5.0); ALBUMIN/GLOBULIN RATIO 0.4 (1.0-2.7); ALKALINE PHOSPHATASE 97 U/L (46-116); ANION GAP 4 mmol/L (5-15); ASPARTATE AMINO TRANSFERASE 12 U/L (15-37); BILIRUBIN,TOTAL 0.3 MG/DL (0.2-1.0); BLOOD UREA NITROGEN 19 mg/dL (7-18); CARBON DIOXIDE 36 MMOL/L (21-32); CHLORIDE 101 MMOL/L (98-107); CREATININE 0.7 MG/DL (0.55-1.30); POTASSIUM 3.7 MMOL/L (3.5-5.1); SODIUM 141 MMOL/L (136-145)
[2019-01-28 05:17] LABS: HEMATOCRIT 31.9 % (37.0-47.0); HEMOGLOBIN 10.4 G/DL (12.0-16.0); MEAN CORPUSCULAR VOLUME 83 FL (80-99); PLATELET COUNT 477 K/UL (150-450); RED BLOOD COUNT 3.83 M/UL (4.20-5.40); RED CELL DISTRIBUTION WIDTH 16.8 % (11.6-14.8); WHITE BLOOD COUNT 6.8 K/UL (4.8-10.8)
--- NOTE | 2019-01-28 05:50 | NUR ---
NURSE NOTES: Reported vanco trough to [facility] pharmacistNeno. Vanco dosage to be adjusted. Charge nurse aware.
[2019-01-28] MEDS ORDERED: Vancomycin 1.5gm Premix IVPB SCH (06:00)
--- NOTE | 2019-01-28 07:20 | NUR ---
HAND-OFF: Report given to Leny Burroughs RN.
--- NOTE | 2019-01-28 07:33 | NUR ---
NURSE NOTES: Received bedside report from Donavan STATON. Pt. in bed, awake, a/o x 4. No sign of distress. On venturi mask at 10L, FiO2 45%. Denies pain at present. IV at left wrist #22g. and right hand #20g. in placed patent/intact. Bed in low position, locked. Call light within reach. Will cont. to monitor.
[2019-01-28 08:00] VITALS: BP 154/77
--- NOTE | 2019-01-28 08:34 | NUR ---
RADIOLOGY DEPT., CHEST X-RAY DONE BY AMBROSE SANDERSON
--- NOTE | 2019-01-28 08:45 | Diagnostic Imaging Report ---
EXAM: XR Chest, 1 View CLINICAL HISTORY: Shortness of breath TECHNIQUE: Frontal view of the chest. COMPARISON: Chest x-ray dated 01/27/19 FINDINGS: Limitations: Patient's hand overlies the right lower lung, limiting its evaluation. Lungs: Persistent pulmonary vascular congestion. Subsegmental atelectasis in the left lung base. Pleural space: Persistent small left pleural effusion. Right costophrenic angle is obscured and cannot be evaluated. Heart: Cardiomegaly. Mediastinum: Unremarkable. Bones/joints: Unremarkable. IMPRESSION: 1. Patient's hand overlies the right lower lung, limiting its evaluation. 2. Persistent pulmonary vascular congestion. 3. Persistent small left pleural effusion. Right costophrenic angle is obscured and cannot be evaluated. 4. Cardiomegaly.
[2019-01-28] MEDS: Miralax 17gm pkt ORAL SCH (09:45)
[2019-01-28] MEDS: BETASERON 0.3 MG SUBQ SCH (09:46)
[2019-01-28] MEDS: metFORMIN 500mg tab ORAL SCH ×2 (09:46→17:51)
[2019-01-28] MEDS: Lisinopril 20mg tab ORAL SCH ×2 (09:46→20:30)
[2019-01-28] MEDS: Solu-MEDROL 40mg Inj IVP SCH ×2 (10:02→21:17)
--- NOTE | 2019-01-28 10:17 | Pulmonology Progress Note ---
Assessment/Plan Assessment/Plan 1. Pneumonia 2. UTI with chronic suprapubic catheter, e coli 3. Multiple sclerosis. 4. Sinus tachycardia 5. Diabetes. 6. Hyponatremia. 7. Neurogenic bladder. 8. Hypertension. 9. Hyperlipidemia. 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 effusions, atelectasis steroids for COPD abx per ID prn bipap titrate o2 cxr wednesday nebs disc w RN Subjective Constitutional: Reports: no symptoms Respiratory: Reports: shortness of breath Cardiovascular: Reports: no symptoms Gastrointestinal/Abdominal: Reports: no symptoms Genitourinary: Reports: no symptoms Allergies: Coded Allergies: SULFA (SULFONAMIDE ANTIBIOTICS) (Verified Allergy, Unknown, 11/22/17) Subjective feeling better on o2 no cp nv or bleeding nto getting oob no nv Objective Last 24 Hour Vital Signs Date Time Temp Pulse Resp B/P (MAP) Pulse Ox O2 Delivery O2 Flow Rate FiO2 01/28/19 09:46 154/77 01/28/19 09:45 88 154/77 01/28/19 09:44 154/77 01/28/19 08:00 Venturi Mask 10.0 01/28/19 08:00 98.0 88 26 154/77 (102) 95 01/28/19 07:40 87 01/28/19 07:18 94 Venturi Mask 12.0 50 01/28/19 07:18 Venturi Mask 12.0 50 01/28/19 04:40 85 21 95 Facial 50 01/28/19 04:00 98.0 78 22 138/74 (95) 94 01/28/19 04:00 Bi-pap 01/28/19 03:45 84 01/28/19 03:01 80 22 96 Facial 50 01/28/19 00:56 82 20 96 Facial 50 01/28/19 00:00 98.6 69 22 120/65 (83) 94 01/28/19 00:00 Bi-pap 01/27/19 23:43 70 01/27/19 23:12 88 29 95 Facial 50 01/27/19 20:49 145/87 01/27/19 20:00 Venturi Mask 10.0 01/27/19 20:00 98.4 98 24 145/87 (106) 92 01/27/19 19:22 98 01/27/19 18:55 93 Venturi Mask 45 01/27/19 18:55 Venturi Mask 45 01/27/19 18:15 125/69 01/27/19 17:12 94 147/77 01/27/19 16:00 Venturi Mask 10.0 01/27/19 16:00 98.1 94 18 147/77 (100) 94 01/27/19 15:20 102 01/27/19 13:39 Venturi Mask 14.0 01/27/19 12:00 Nasal Cannula 4.0 01/27/19 12:00 98.5 84 18 130/72 (91) 92 01/27/19 12:00 86 Intake and Output 01/27/19 01/28/19 18:59 06:59 Intake Total 828.750 ml 401.111 ml Output Total 1200 ml 1800 ml Balance -371.250 ml -1398.889 ml Intake Oral 360 ml 240 ml IV Total 468.750 ml 161.111 ml Output Urine Total 1200 ml 1800 ml # Bowel Movements 2 General Appearance: WD/WN Respiratory/Chest: rhonchi Cardiovascular: normal rate, regular rhythm Abdomen: soft, non tender, no organomegaly Extremities: no cyanosis Neurologic/Psychiatric: alert, oriented x 3 Microbiology Date/Time Source Procedure Growth Status 01/26/19 15:40 Blood Blood Culture - Preliminary NO GROWTH AFTER 24 HOURS Resulted 01/26/19 15:26 Blood Blood Culture - Preliminary NO GROWTH AFTER 24 HOURS Resulted 01/26/19 15:30 Sputum Induced Gram Stain - Final Resulted 01/26/19 15:30 Sputum Induced Sputum Culture - Preliminary NORMAL UPPER RESPIRATORY CLARA AT 24 ... Resulted 01/26/19 15:30 Urine,Suprapubic Urine Culture - Preliminary YEAST Resulted Laboratory Tests 01/27/19 13:18: Sodium Level 142, Potassium Level 4.2, Chloride Level 100, Carbon Dioxide Level 36H, Anion Gap 6, Blood Urea Nitrogen 18, Creatinine 0.7, Estimat Glomerular Filtration Rate , Glucose Level 143H, Calcium Level 9.4 01/28/19 03:44: Sodium Level 141, Potassium Level 3.7, Chloride Level 101, Carbon Dioxide Level 36H, Anion Gap 4L, Blood Urea Nitrogen 19H, Creatinine 0.7, Estimat Glomerular Filtration Rate , Glucose Level 148H, Calcium Level 9.0, White Blood Count 6.8, Red Blood Count 3.83L, Hemoglobin 10.4L, Hematocrit 31.9L, Mean Corpuscular Volume 83, Mean Corpuscular Hemoglobin 27.0, Mean Corpuscular Hemoglobin Concent 32.4, Red Cell Distribution Width 16.8H, Platelet Count 477H, Mean Platelet Volume 6.8, Neutrophils (%) (Auto) , Lymphocytes (%) (Auto) , Monocytes (%) (Auto) , Eosinophils (%) (Auto) , Basophils (%) (Auto) , Differential Total Cells Counted 100, Neutrophils % (Manual) 82H, Lymphocytes % (Manual) 8L, Monocytes % (Manual) 10, Eosinophils % (Manual) 0, Basophils % ( Manual) 0, Band Neutrophils 0, Platelet Estimate Adequate, Platelet Morphology Normal, Anisocytosis 1+, Total Bilirubin 0.3, Aspartate Amino Transf (AST/SGOT) 12L, Alanine Aminotransferase (ALT/SGPT) 12, Alkaline Phosphatase 97, Total Protein 7.9, Albumin 2.3L, Globulin 5.6, Albumin/Globulin Ratio 0.4L, Vancomycin Level Trough 23.4H Current Medications Medications (Trade) Dose Ordered Sig/Mj Route PRN Reason Start Time Stop Time Status Last Admin Dose Admin Acetaminophen (Tylenol) 650 mg Q4H PRN ORAL Mild Pain/Temp > 100.5 01/25/19 16:00 02/15/19 15:59 01/27/19 19:55 Amlodipine Besylate (Norvasc) 2.5 mg BID ORAL 01/27/19 18:00 02/26/19 17:59 01/28/19 09:45 Atorvastatin Calcium (Lipitor) 10 mg BEDTIME ORAL 01/25/19 21:00 02/15/19 20:59 01/27/19 20:48 Baclofen (Lioresal) 10 mg EVERY 8 HOURS ORAL 01/27/19 06:00 02/15/19 08:59 01/28/19 05:59 Clonidine HCl (Catapres Tab) 0.1 mg BID ORAL 01/27/19 09:00 02/26/19 08:59 01/28/19 09:44 Furosemide (Lasix) 40 mg EVERY 12 HOURS IV 01/27/19 17:00 01/29/19 06:00 01/28/19 09:44 Guaifenesin/ Codeine Phosphate (Robitussin with codeine) 5 ml Q6H PRN ORAL For Cough 01/25/19 21:00 02/16/19 20:59 01/26/19 00:22 Hydralazine HCl (Apresoline) 10 mg Q6H PRN IV SBP >170 01/25/19 16:30 02/20/19 16:29 Lisinopril (Prinivil) 20 mg Q12HR ORAL 01/25/19 21:00 02/20/19 12:59 01/28/19 09:46 Metformin HCl (Glucophage) 500 mg TWICE A DAY ORAL 01/25/19 18:00 02/15/19 08:59 01/28/19 09:46 Methylprednisolone Sodium Succinate (Solu-MEDROL) 40 mg Q12H IVP 01/26/19 22:00 02/25/19 21:59 01/28/19 10:02 Pantoprazole (Protonix) 40 mg DAILY ORAL 01/26/19 09:00 02/15/19 08:59 01/28/19 09:44 Patient Own Medication (Patient's Own Med) 1 ea QOD SUBQ 01/26/19 09:00 02/17/19 08:59 01/28/19 09:46 Piperacillin Sod/ Tazobactam Sod 3.375 gm/Dextrose 100 ml @ 25 mls/hr EVERY 8 HOURS IVPB 01/26/19 15:30 01/31/19 15:29 01/28/19 06:00 Polyethylene Glycol (Miralax) 17 gm DAILY ORAL 01/26/19 09:00 02/21/19 08:59 01/28/19 09:45 Tizanidine HCl (Zanaflex) 4 mg THREE TIMES A DAY ORAL 01/25/19 18:00 02/15/19 08:59 01/28/19 09:46 Trazodone HCl (Desyrel) 100 mg BEDTIME PRN ORAL insomnia 01/25/19 21:00 02/19/19 02:34 01/27/19 21:42 Vancomycin HCl (Vanco rx to dose) 1 ea DAILY PRN MISC Per rx protocol 01/26/19 14:30 02/25/19 14:29 Kenyetta Dill DO January 28, 2019 10:17
[2019-01-28] MEDS ORDERED: NS 275ml ONE (10:51)
[2019-01-28 12:00] VITALS: BP 148/72
--- NOTE | 2019-01-28 14:21 | Cardiology Progress Note ---
Assessment/Plan Problem List: (1) Multiple sclerosis (2) Urinary tract infection (3) Pneumonia (4) Tachycardia (5) Obesities, morbid Status: stable, progressing Status Narrative Pt w/ stable cardiac status - hypotension has resolved, and she is now hypertensive at times. Dx'd w/ pneumonia and UTI. Limited functional status - MS Assessment/Plan Continue iv antibiotics per ID, Continue lisinopril, norvasc for BP control. Uptitrate lisinopril if needed for BP. Monitor for vol overload/pulm congestion - ECHO w/ nl LV function, mild diastolic dysfunction Subjective ROS Limited/Unobtainable: No Subjective Cardiology for Dr. Perry Pt comfortable, on FM oxygen. No cp Objective Last 24 Hour Vital Signs Date Time Temp Pulse Resp B/P (MAP) Pulse Ox O2 Delivery O2 Flow Rate FiO2 01/28/19 12:00 Venturi Mask 10.0 01/28/19 12:00 98.8 86 25 148/72 (97) 95 01/28/19 11:47 86 01/28/19 09:46 154/77 01/28/19 09:45 88 154/77 01/28/19 09:44 154/77 01/28/19 08:00 Venturi Mask 10.0 01/28/19 08:00 98.0 88 26 154/77 (102) 95 01/28/19 07:40 87 01/28/19 07:18 94 Venturi Mask 12.0 50 01/28/19 07:18 Venturi Mask 12.0 50 01/28/19 04:40 85 21 95 Facial 50 01/28/19 04:00 98.0 78 22 138/74 (95) 94 01/28/19 04:00 Bi-pap 01/28/19 03:45 84 01/28/19 03:01 80 22 96 Facial 50 01/28/19 00:56 82 20 96 Facial 50 01/28/19 00:00 98.6 69 22 120/65 (83) 94 01/28/19 00:00 Bi-pap 01/27/19 23:43 70 01/27/19 23:12 88 29 95 Facial 50 01/27/19 20:49 145/87 01/27/19 20:00 Venturi Mask 10.0 01/27/19 20:00 98.4 98 24 145/87 (106) 92 01/27/19 19:22 98 01/27/19 18:55 93 Venturi Mask 45 01/27/19 18:55 Venturi Mask 45 01/27/19 18:15 125/69 01/27/19 17:12 94 147/77 01/27/19 16:00 Venturi Mask 10.0 01/27/19 16:00 98.1 94 18 147/77 (100) 94 01/27/19 15:20 102 General Appearance: WD/WN, no apparent distress, obese EENT: PERRL/EOMI Neck: supple, no JVD Rhythm: NSR Cardiovascular: normal rate, regular rhythm, no gallop/murmur Respiratory/Chest: no accessory muscle use, other - L lower field rhonchi Abdomen: normal bowel sounds, non tender, soft Extremities: non-tender, no swelling Intake and Output 01/27/19 01/28/19 18:59 06:59 Intake Total 828.750 ml 401.111 ml Output Total 1200 ml 1800 ml Balance -371.250 ml -1398.889 ml Intake Oral 360 ml 240 ml IV Total 468.750 ml 161.111 ml Output Urine Total 1200 ml 1800 ml # Bowel Movements 2 Laboratory Tests Test 01/28/19 03:44 White Blood Count 6.8 K/UL (4.8-10.8) Red Blood Count 3.83 M/UL (4.20-5.40) L Hemoglobin 10.4 G/DL (12.0-16.0) L Hematocrit 31.9 % (37.0-47.0) L Mean Corpuscular Volume 83 FL (80-99) Mean Corpuscular Hemoglobin 27.0 PG (27.0-31.0) Mean Corpuscular Hemoglobin Concent 32.4 G/DL (32.0-36.0) Red Cell Distribution Width 16.8 % (11.6-14.8) H Platelet Count 477 K/UL (150-450) H Mean Platelet Volume 6.8 FL (6.5-10.1) Neutrophils (%) (Auto) % (45.0-75.0) Lymphocytes (%) (Auto) % (20.0-45.0) Monocytes (%) (Auto) % (1.0-10.0) Eosinophils (%) (Auto) % (0.0-3.0) Basophils (%) (Auto) % (0.0-2.0) Differential Total Cells Counted 100 Neutrophils % (Manual) 82 % (45-75) H Lymphocytes % (Manual) 8 % (20-45) L Monocytes % (Manual) 10 % (1-10) Eosinophils % (Manual) 0 % (0-3) Basophils % (Manual) 0 % (0-2) Band Neutrophils 0 % (0-8) Platelet Estimate Adequate Platelet Morphology Normal Anisocytosis 1+ Sodium Level 141 MMOL/L (136-145) Potassium Level 3.7 MMOL/L (3.5-5.1) Chloride Level 101 MMOL/L (98-107) Carbon Dioxide Level 36 MMOL/L (21-32) H Anion Gap 4 mmol/L (5-15) L Blood Urea Nitrogen 19 mg/dL (7-18) H Creatinine 0.7 MG/DL (0.55-1.30) Estimat Glomerular Filtration Rate mL/min (>60) Glucose Level 148 MG/DL (74-106) H Calcium Level 9.0 MG/DL (8.5-10.1) Total Bilirubin 0.3 MG/DL (0.2-1.0) Aspartate Amino Transf (AST/SGOT) 12 U/L (15-37) L Alanine Aminotransferase (ALT/SGPT) 12 U/L (12-78) Alkaline Phosphatase 97 U/L (46-116) Total Protein 7.9 G/DL (6.4-8.2) Albumin 2.3 G/DL (3.4-5.0) L Globulin 5.6 g/dL Albumin/Globulin Ratio 0.4 (1.0-2.7) L Vancomycin Level Trough 23.4 ug/mL (5.0-12.0) H Microbiology Date/Time Source Procedure Growth Status 01/26/19 15:40 Blood Blood Culture - Preliminary NO GROWTH AFTER 24 HOURS Resulted 01/26/19 15:26 Blood Blood Culture - Preliminary NO GROWTH AFTER 24 HOURS Resulted 01/26/19 15:30 Sputum Induced Gram Stain - Final Resulted 01/26/19 15:30 Sputum Induced Sputum Culture - Preliminary NORMAL UPPER RESPIRATORY CLARA AT 24 ... Resulted 01/26/19 15:30 Urine,Suprapubic Urine Culture - Preliminary YEAST Resulted Mariam Ball MD January 28, 2019 14:21
[2019-01-28 16:00] VITALS: BP 130/67
--- NOTE | 2019-01-28 16:00 | Infectious Diseases Prog Note ---
Assessment/Plan Assessment/Plan ASSESSMENT AND PLAN: 1. e.coli uti/pyelonephritis, pneumonia vs chf, atx, fevers, sputum culture - normal althe[place], CT chest noted recurrent fevers and sob, ? nosocomial infection, ? HCAP, PVC on chest x-ray , sc-nf, fungal uti - zosyn and diflcuan, discontinue vancomycin - diuresis - fevers better - monitor labs and chest x-ray - d/w RN and patient 2. Multiple sclerosis. 3. elevated bp - in icu and on tx 4. Suprapubic catheter that is chronic, neurogenic bladder 5. Morbid obesity. 6. Quadriplegia. 7. Hypertension. 8. Hyperlipidemia. 9. Diabetes type 2. 10. Colonic polyps. 11. Anemia. 12. History of colonoscopy. 13. Social history is negative for smoking, alcohol, or drug abuse. 14. Family history is noncontributory. 15. Allergies to sulfa drugs. 16. MAR was noted. 17. Case was discussed with RN. 18. ROBBY care. 19. Wound Skin care protocol. 20. Continue treatment per Dr. Quiroz and consultants. Subjective Constitutional: Reports: fever HEENT: Reports: congestion Respiratory: Reports: shortness of breath Gastrointestinal/Abdominal: Denies: nausea, diarrhea Genitourinary: Reports: other - + sp catheter Neurologic: Denies: headache Psychiatric: Denies: depression Skin: Denies: rash Hematologic: Denies: bleeding Musculoskeletal: Denies: pain Allergies: Coded Allergies: SULFA (SULFONAMIDE ANTIBIOTICS) (Verified Allergy, Unknown, 11/22/17) Objective Vital Signs Last 24 Hour Vital Signs Date Time Temp Pulse Resp B/P (MAP) Pulse Ox O2 Delivery O2 Flow Rate FiO2 01/28/19 12:00 Venturi Mask 10.0 01/28/19 12:00 98.8 86 25 148/72 (97) 95 01/28/19 11:47 86 01/28/19 09:46 154/77 01/28/19 09:45 88 154/77 01/28/19 09:44 154/77 01/28/19 08:00 Venturi Mask 10.0 01/28/19 08:00 98.0 88 26 154/77 (102) 95 01/28/19 07:40 87 01/28/19 07:18 94 Venturi Mask 12.0 50 01/28/19 07:18 Venturi Mask 12.0 50 01/28/19 04:40 85 21 95 Facial 50 01/28/19 04:00 98.0 78 22 138/74 (95) 94 01/28/19 04:00 Bi-pap 01/28/19 03:45 84 01/28/19 03:01 80 22 96 Facial 50 01/28/19 00:56 82 20 96 Facial 50 01/28/19 00:00 98.6 69 22 120/65 (83) 94 01/28/19 00:00 Bi-pap 01/27/19 23:43 70 01/27/19 23:12 88 29 95 Facial 50 01/27/19 20:49 145/87 01/27/19 20:00 Venturi Mask 10.0 01/27/19 20:00 98.4 98 24 145/87 (106) 92 01/27/19 19:22 98 01/27/19 18:55 93 Venturi Mask 45 01/27/19 18:55 Venturi Mask 45 01/27/19 18:15 125/69 01/27/19 17:12 94 147/77 01/27/19 16:00 Venturi Mask 10.0 01/27/19 16:00 98.1 94 18 147/77 (100) 94 Height (Feet): 5 Height (Inches): 7.00 Weight (Pounds): 200 General Appearance: no acute distress HEENT: normocephalic, atraumatic, anicteric, EOMI, supple, no JVD Respiratory/Chest: crackles/rales, rhonchi - bilaterally Cardiovascular: normal rate, regular rhythm, no gallop/murmur, no JVD Abdomen: normal bowel sounds, soft, non tender, no organomegaly Genitourinary: other - + weber - urine slt cloudy Extremities: no cyanosis Skin: no rash 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 Findings: Patchy infiltrates noted on the right upper lobe and possibly left lung base as well. Generalized interstitial and vascular prominence demonstrated although this may be slightly improved. IMPRESSION: Persistent right upper lobe infiltrate and probable infiltrate left lung base. This could be due to pneumonia or asymmetric edema. Improved interstitial edema over one day Chest x-ray - 01/18/19 - Comparison: 01/16/2019 A single view chest radiograph was obtained. Findings: Developing pulmonary vascular congestion demonstrated. The heart is enlarged. Vascularity is more prominent. IMPRESSION: Development of CHF Chest x-ray - 01/19/19 - Procedure: XRAY Chest 1v Indication: Cough Comparison: 01/18/2019 A single view chest radiograph was obtained. Findings: Prominent pulmonary vascularity and heart size are demonstrated. Small pleural effusions are not excluded. IMPRESSION: Pulmonary vascular congestion. No significant change CT chest: IMPRESSION: Large area of focal bullous emphysema involving the right lung base accounting for the lucency demonstrated on the recent chest x-ray. Generalized emphysema noted within the lungs especially in the upper lobes. Pulmonary edema. Bilateral pleural effusions larger on the right compared to left. Posterior basilar atelectasis and/or pneumonia. Chest x-ray - 01/24/19 - IMPRESSION: Development of a unusual lucency at the right lung base. Query cavitary lesion, not seen previously. Further evaluation with CT is recommended. Bilateral pleural effusions. Worsening CHF Chest x-ray - 01/28/19 - COMPARISON: Chest x-ray dated 01/27/19 FINDINGS: Limitations: Patient's hand overlies the right lower lung, limiting its evaluation. Lungs: Persistent pulmonary vascular congestion. Subsegmental atelectasis in the left lung base. Pleural space: Persistent small left pleural effusion. Right costophrenic angle is obscured and cannot be evaluated. Heart: Cardiomegaly. Mediastinum: Unremarkable. Bones/joints: Unremarkable. IMPRESSION: 1. Patient's hand overlies the right lower lung, limiting its evaluation. 2. Persistent pulmonary vascular congestion. 3. Persistent small left pleural effusion. Right costophrenic angle is obscured and cannot be evaluated. 4. Cardiomegaly. Microbiology Date/Time Source Procedure Growth Status 01/26/19 15:40 Blood Blood Culture - Preliminary NO GROWTH AFTER 24 HOURS Resulted 01/26/19 15:26 Blood Blood Culture - Preliminary NO GROWTH AFTER 24 HOURS Resulted 01/26/19 15:30 Sputum Induced Gram Stain - Final Resulted 01/26/19 15:30 Sputum Induced Sputum Culture - Preliminary NORMAL UPPER RESPIRATORY ALTHEA AT 24 ... Resulted 01/26/19 15:30 Urine,Suprapubic Urine Culture - Preliminary YEAST Resulted Laboratory Tests Test 01/28/19 03:44 White Blood Count 6.8 K/UL (4.8-10.8) Red Blood Count 3.83 M/UL (4.20-5.40) L Hemoglobin 10.4 G/DL (12.0-16.0) L Hematocrit 31.9 % (37.0-47.0) L Mean Corpuscular Volume 83 FL (80-99) Mean Corpuscular Hemoglobin 27.0 PG (27.0-31.0) Mean Corpuscular Hemoglobin Concent 32.4 G/DL (32.0-36.0) Red Cell Distribution Width 16.8 % (11.6-14.8) H Platelet Count 477 K/UL (150-450) H Mean Platelet Volume 6.8 FL (6.5-10.1) Neutrophils (%) (Auto) % (45.0-75.0) Lymphocytes (%) (Auto) % (20.0-45.0) Monocytes (%) (Auto) % (1.0-10.0) Eosinophils (%) (Auto) % (0.0-3.0) Basophils (%) (Auto) % (0.0-2.0) Differential Total Cells Counted 100 Neutrophils % (Manual) 82 % (45-75) H Lymphocytes % (Manual) 8 % (20-45) L Monocytes % (Manual) 10 % (1-10) Eosinophils % (Manual) 0 % (0-3) Basophils % (Manual) 0 % (0-2) Band Neutrophils 0 % (0-8) Platelet Estimate Adequate Platelet Morphology Normal Anisocytosis 1+ Sodium Level 141 MMOL/L (136-145) Potassium Level 3.7 MMOL/L (3.5-5.1) Chloride Level 101 MMOL/L (98-107) Carbon Dioxide Level 36 MMOL/L (21-32) H Anion Gap 4 mmol/L (5-15) L Blood Urea Nitrogen 19 mg/dL (7-18) H Creatinine 0.7 MG/DL (0.55-1.30) Estimat Glomerular Filtration Rate mL/min (>60) Glucose Level 148 MG/DL (74-106) H Calcium Level 9.0 MG/DL (8.5-10.1) Total Bilirubin 0.3 MG/DL (0.2-1.0) Aspartate Amino Transf (AST/SGOT) 12 U/L (15-37) L Alanine Aminotransferase (ALT/SGPT) 12 U/L (12-78) Alkaline Phosphatase 97 U/L (46-116) Total Protein 7.9 G/DL (6.4-8.2) Albumin 2.3 G/DL (3.4-5.0) L Globulin 5.6 g/dL Albumin/Globulin Ratio 0.4 (1.0-2.7) L Vancomycin Level Trough 23.4 ug/mL (5.0-12.0) H Current Medications Medications (Trade) Dose Ordered Sig/Mj Route PRN Reason Start Time Stop Time Status Last Admin Dose Admin Acetaminophen (Tylenol) 650 mg Q4H PRN ORAL Mild Pain/Temp > 100.5 01/25/19 16:00 02/15/19 15:59 01/28/19 10:38 Amlodipine Besylate (Norvasc) 2.5 mg BID ORAL 01/27/19 18:00 02/26/19 17:59 01/28/19 09:45 Atorvastatin Calcium (Lipitor) 10 mg BEDTIME ORAL 01/25/19 21:00 02/15/19 20:59 01/27/19 20:48 Baclofen (Lioresal) 10 mg EVERY 8 HOURS ORAL 01/27/19 06:00 02/15/19 08:59 01/28/19 13:38 Clonidine HCl (Catapres Tab) 0.1 mg BID ORAL 01/27/19 09:00 02/26/19 08:59 01/28/19 09:44 Furosemide (Lasix) 40 mg EVERY 12 HOURS IV 01/27/19 17:00 01/29/19 06:00 01/28/19 09:44 Guaifenesin/ Codeine Phosphate (Robitussin with codeine) 5 ml Q6H PRN ORAL For Cough 01/25/19 21:00 02/16/19 20:59 01/26/19 00:22 Hydralazine HCl (Apresoline) 10 mg Q6H PRN IV SBP >170 01/25/19 16:30 02/20/19 16:29 Lisinopril (Prinivil) 20 mg Q12HR ORAL 01/25/19 21:00 02/20/19 12:59 01/28/19 09:46 Metformin HCl (Glucophage) 500 mg TWICE A DAY ORAL 01/25/19 18:00 02/15/19 08:59 01/28/19 09:46 Methylprednisolone Sodium Succinate (Solu-MEDROL) 40 mg Q12H IVP 01/26/19 22:00 02/25/19 21:59 01/28/19 10:02 Pantoprazole (Protonix) 40 mg DAILY ORAL 01/26/19 09:00 02/15/19 08:59 01/28/19 09:44 Patient Own Medication (Patient's Own Med) 1 ea QOD SUBQ 01/26/19 09:00 02/17/19 08:59 01/28/19 09:46 Piperacillin Sod/ Tazobactam Sod 3.375 gm/Dextrose 100 ml @ 25 mls/hr EVERY 8 HOURS IVPB 01/26/19 15:30 01/31/19 15:29 01/28/19 13:39 Polyethylene Glycol (Miralax) 17 gm DAILY ORAL 01/26/19 09:00 02/21/19 08:59 01/28/19 09:45 Tizanidine HCl (Zanaflex) 4 mg THREE TIMES A DAY ORAL 01/25/19 18:00 02/15/19 08:59 01/28/19 13:39 Trazodone HCl (Desyrel) 100 mg BEDTIME PRN ORAL insomnia 01/25/19 21:00 02/19/19 02:34 01/27/19 21:42 Vancomycin HCl (Vanco rx to dose) 1 ea DAILY PRN MISC Per rx protocol 01/26/19 14:30 02/25/19 14:29 Carroll Miller MD January 28, 2019 16:00
--- NOTE | 2019-01-28 16:21 | NUR ---
CASE MANAGEMENT: REVIEW SI: PNA . MS . SACRAL DECUBITAL ULCER . E.COLI UTI/PYELONEPHRITIS T 98.8 HR 86 RR 26 BP 154/77 SAT 95% VENTURI MASK FLOW RATE 10.0 H/H 10.4/31.9 GLUCOSE 148 IS: DIFLUCAN PO QD LASIX IV Q12HR BACLOFEN PPO Q8HR SOLU MEDROL IV Q12HR ZOSYN IV Q8HR GUAIFENESIN PO Q6HR PRN STEP DOWN UNIT STATUS DCP: PATIENT IS FROM HOME
[2019-01-28] MEDS: Fluconazole 100mg tab ORAL SCH (17:02)
--- NOTE | 2019-01-28 19:07 | NUR ---
HAND-OFF: Report given to Rivera STATON. Pt. remain stable.
--- NOTE | 2019-01-28 19:20 | NUR ---
NURSE NOTES: Pt report received from Millie STATON. Pt appears to be in stable condition as she is watching TV in bed and talking to RNs. Pt is alert and oriented times 4, and is able to follow commands, pt pupils are round and reactive to light and accommodating. Pt has a telemetry monitor place, active and displaying SR. no signs or symptoms of acute cardiac distress noted. Pt is saturating at 100% with a venturi mask, delivering 10L O2. no signs or symptoms of acute respiratory distress noted. Pt has a supra pubic cath in place, able to drain to gravity, no compromise noted to body site or tubing. Pt has a L wrist 22G and a R hand 20G able to flush, no abnormalities notes to site. All safety precautions are in place, pt is set in lowest position, bed rails are up times 3, bed alarm active, call light is within easy reach, safety brakes are engaged. will continue plan of care.
[2019-01-28 20:00] VITALS: BP 138/77
[2019-01-28] MEDS: TraZODone 100mg tab ORAL PRN (22:30)
[2019-01-29] VITALS: BP 140/78
[2019-01-29 04:00] VITALS: BP 133/70
--- NOTE | 2019-01-29 05:07 | NUR ---
NURSE NOTES: Pt stated she wanted Baclofen at 0600. med returned to [facility]. Will admin medication at 0600.
[2019-01-29 06:03] LABS: HEMATOCRIT 29.2 % (37.0-47.0); HEMOGLOBIN 9.7 G/DL (12.0-16.0); MEAN CORPUSCULAR VOLUME 82 FL (80-99); PLATELET COUNT 459 K/UL (150-450); RED BLOOD COUNT 3.55 M/UL (4.20-5.40); RED CELL DISTRIBUTION WIDTH 15.8 % (11.6-14.8)
[2019-01-29 06:33] LABS: ALANINE AMINOTRANSFERASE 17 U/L (12-78); ALBUMIN 2.3 G/DL (3.4-5.0); ALBUMIN/GLOBULIN RATIO 0.4 (1.0-2.7); ALKALINE PHOSPHATASE 85 U/L (46-116); ANION GAP 5 mmol/L (5-15); ASPARTATE AMINO TRANSFERASE 19 U/L (15-37); BILIRUBIN,TOTAL 0.4 MG/DL (0.2-1.0); BLOOD UREA NITROGEN 21 mg/dL (7-18); CALCIUM 8.8 MG/DL (8.5-10.1); CARBON DIOXIDE 34 MMOL/L (21-32); CHLORIDE 101 MMOL/L (98-107); CREATININE 0.7 MG/DL (0.55-1.30); POTASSIUM 4.2 MMOL/L (3.5-5.1); SODIUM 140 MMOL/L (136-145)
--- NOTE | 2019-01-29 07:10 | NUR ---
HAND-OFF: Report given to Sara STATON. Pt is stable condition.
[2019-01-29 08:00] VITALS: BP 155/83
[2019-01-29] MEDS: metFORMIN 500mg tab ORAL SCH ×2 (08:15→17:12)
[2019-01-29] MEDS: Miralax 17gm pkt ORAL SCH ×2 (08:15→09:00)
[2019-01-29] MEDS: Lisinopril 20mg tab ORAL SCH ×2 (08:16→21:48)
[2019-01-29] MEDS: Fluconazole 100mg tab ORAL SCH (08:16)
[2019-01-29] MEDS ORDERED: D5W 275ml ONE (08:16)
[2019-01-29] MEDS ORDERED: NS 275ml ONE (08:16)
[2019-01-29] MEDS ORDERED: Tubing IV Secondary IV ONE (08:16)
[2019-01-29] MEDS: Solu-MEDROL 40mg Inj IVP SCH ×2 (10:23→21:48)
--- NOTE | 2019-01-29 10:35 | Pulmonology Progress Note ---
Assessment/Plan Assessment/Plan 1. Pneumonia 2. UTI with chronic suprapubic catheter, e coli 3. Multiple sclerosis. 4. Sinus tachycardia 5. Diabetes. 6. Hyponatremia. 7. Neurogenic bladder. 8. Hypertension. 9. Hyperlipidemia. 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 effusions, atelectasis steroids for COPD abx per ID still needs agressive diuresis bipap qhs and prn distress titrate o2 cxr 1-2 days nebs disc w RN Subjective Constitutional: Reports: no symptoms HEENT: Repors: no symptoms Respiratory: Reports: shortness of breath Cardiovascular: Reports: no symptoms Gastrointestinal/Abdominal: Reports: no symptoms Allergies: Coded Allergies: SULFA (SULFONAMIDE ANTIBIOTICS) (Verified Allergy, Unknown, 11/22/17) Subjective feeling better using bipap the best seh can at night on o2 no cp nv or bleeding nto getting oob no nv Objective Last 24 Hour Vital Signs Date Time Temp Pulse Resp B/P (MAP) Pulse Ox O2 Delivery O2 Flow Rate FiO2 01/29/19 08:16 155/83 01/29/19 08:15 80 155/83 01/29/19 08:15 155/83 01/29/19 08:00 72 01/29/19 08:00 98.7 80 22 155/83 (107) 95 01/29/19 08:00 Venturi Mask 10.0 01/29/19 04:00 71 01/29/19 04:00 98.1 64 21 133/70 (91) 98 01/29/19 04:00 Venturi Mask 10.0 01/29/19 03:17 61 21 96 Facial 50 01/29/19 00:20 89 24 94 Facial 50 01/29/19 00:00 69 01/29/19 00:00 Venturi Mask 10.0 01/29/19 00:00 98.2 78 22 140/78 (98) 97 01/28/19 20:30 138/77 01/28/19 20:00 Venturi Mask 10.0 01/28/19 20:00 62 01/28/19 20:00 98.0 85 23 138/77 (97) 96 01/28/19 18:56 Venturi Mask 12.0 50 01/28/19 18:54 95 Venturi Mask 12.0 50 01/28/19 17:51 82 130/67 01/28/19 17:50 130/67 01/28/19 16:00 98.7 82 25 130/67 (88) 96 01/28/19 16:00 Venturi Mask 10.0 01/28/19 15:22 83 01/28/19 12:00 Venturi Mask 10.0 01/28/19 12:00 98.8 86 25 148/72 (97) 95 01/28/19 11:47 86 Intake and Output 01/28/19 01/29/19 19:00 07:00 Intake Total 125 ml Output Total 1175 ml 800 ml Balance -1175 ml -675 ml IV Total 125 ml Output Urine Total 1175 ml 800 ml General Appearance: WD/WN Cardiovascular: normal rate, regular rhythm Abdomen: soft, non tender, non distended Neurologic/Psychiatric: alert, oriented x 3 Microbiology Date/Time Source Procedure Growth Status 01/26/19 15:40 Blood Blood Culture - Preliminary NO GROWTH AFTER 48 HOURS Resulted 01/26/19 15:26 Blood Blood Culture - Preliminary NO GROWTH AFTER 48 HOURS Resulted 01/26/19 15:30 Sputum Induced Gram Stain - Final Complete 01/26/19 15:30 Sputum Induced Sputum Culture - Final NORMAL UPPER RESPIRATORY CLARA PRESENT Complete 01/26/19 15:30 Urine,Suprapubic Urine Culture - Preliminary YEAST Resulted Laboratory Tests 01/29/19 04:32: White Blood Count 6.0, Red Blood Count 3.55L, Hemoglobin 9.7L, Hematocrit 29.2L , Mean Corpuscular Volume 82, Mean Corpuscular Hemoglobin 27.2, Mean Corpuscular Hemoglobin Concent 33.1, Red Cell Distribution Width 15.8H, Platelet Count 459H, Mean Platelet Volume 6.3L, Neutrophils (%) (Auto) , Lymphocytes (%) (Auto) , Monocytes (%) (Auto) , Eosinophils (%) (Auto) , Basophils (%) (Auto) , Differential Total Cells Counted 100, Neutrophils % ( Manual) 89H, Lymphocytes % (Manual) 10L, Monocytes % (Manual) 1, Eosinophils % ( Manual) 0, Basophils % (Manual) 0, Band Neutrophils 0, Platelet Estimate Adequate, Platelet Morphology Normal, Anisocytosis 1+, Sodium Level 140, Potassium Level 4.2, Chloride Level 101, Carbon Dioxide Level 34H, Anion Gap 5, Blood Urea Nitrogen 21H, Creatinine 0.7, Estimat Glomerular Filtration Rate , Glucose Level 135H, Calcium Level 8.8, Total Bilirubin 0.4, Aspartate Amino Transf (AST/SGOT) 19, Alanine Aminotransferase (ALT/SGPT) 17, Alkaline Phosphatase 85, Total Protein 7.7, Albumin 2.3L, Globulin 5.4, Albumin/Globulin Ratio 0.4L Current Medications Medications (Trade) Dose Ordered Sig/Mj Route PRN Reason Start Time Stop Time Status Last Admin Dose Admin Acetaminophen (Tylenol) 650 mg Q4H PRN ORAL Mild Pain/Temp > 100.5 01/25/19 16:00 02/15/19 15:59 01/28/19 10:38 Amlodipine Besylate (Norvasc) 2.5 mg BID ORAL 01/27/19 18:00 02/26/19 17:59 01/29/19 08:15 Atorvastatin Calcium (Lipitor) 10 mg BEDTIME ORAL 01/25/19 21:00 02/15/19 20:59 01/28/19 20:29 Baclofen (Lioresal) 10 mg EVERY 8 HOURS ORAL 01/27/19 06:00 02/15/19 08:59 01/29/19 06:20 Clonidine HCl (Catapres Tab) 0.1 mg BID ORAL 01/27/19 09:00 02/26/19 08:59 01/29/19 08:15 Fluconazole (Diflucan) 100 mg DAILY ORAL 01/28/19 16:00 02/04/19 15:59 01/29/19 08:16 Guaifenesin/ Codeine Phosphate (Robitussin with codeine) 5 ml Q6H PRN ORAL For Cough 01/25/19 21:00 02/16/19 20:59 01/26/19 00:22 Hydralazine HCl (Apresoline) 10 mg Q6H PRN IV SBP >170 01/25/19 16:30 02/20/19 16:29 Lisinopril (Prinivil) 20 mg Q12HR ORAL 01/25/19 21:00 02/20/19 12:59 01/29/19 08:16 Metformin HCl (Glucophage) 500 mg TWICE A DAY ORAL 01/25/19 18:00 02/15/19 08:59 01/29/19 08:15 Methylprednisolone Sodium Succinate (Solu-MEDROL) 40 mg Q12H IVP 01/26/19 22:00 02/25/19 21:59 01/29/19 10:23 Pantoprazole (Protonix) 40 mg DAILY ORAL 01/26/19 09:00 02/15/19 08:59 01/29/19 08:15 Patient Own Medication (Patient's Own Med) 1 ea QOD SUBQ 01/26/19 09:00 02/17/19 08:59 01/28/19 09:46 Piperacillin Sod/ Tazobactam Sod 3.375 gm/Dextrose 100 ml @ 25 mls/hr EVERY 8 HOURS IVPB 01/26/19 15:30 01/31/19 15:29 01/29/19 05:12 Polyethylene Glycol (Miralax) 17 gm DAILY ORAL 01/26/19 09:00 02/21/19 08:59 01/28/19 09:45 Tizanidine HCl (Zanaflex) 4 mg THREE TIMES A DAY ORAL 01/25/19 18:00 02/15/19 08:59 01/29/19 08:16 Trazodone HCl (Desyrel) 100 mg BEDTIME PRN ORAL insomnia 01/25/19 21:00 02/19/19 02:34 01/28/19 22:30 Kenyetta Dill DO January 29, 2019 10:35
[2019-01-29 12:00] VITALS: BP 153/77
--- NOTE | 2019-01-29 14:27 | Cardiology Progress Note ---
Assessment/Plan Problem List: (1) Multiple sclerosis (2) Urinary tract infection (3) Pneumonia (4) Tachycardia (5) Obesities, morbid (6) Diastolic heart failure Status: stable, progressing Status Narrative Pt w/ hypertension and appears w/ pulm congestion by xr. She has been dx d w/ uti and possible pneumonia- followed by ID Assessment/Plan Continue iv antibiotics per ID, Continue lisinopril, norvasc for BP control. Start lasix ( was taking 60 mg/d as outpatient) and follow i/os, renal function , K. Subjective ROS Limited/Unobtainable: No Subjective Cardiology for Dr. Perry Mrs Orozco has no c/o. She remains on face-mask oxygen Objective Last 24 Hour Vital Signs Date Time Temp Pulse Resp B/P (MAP) Pulse Ox O2 Delivery O2 Flow Rate FiO2 01/29/19 12:00 98.8 85 24 153/77 (102) 96 01/29/19 12:00 Venturi Mask 10.0 01/29/19 08:16 155/83 01/29/19 08:15 80 155/83 01/29/19 08:15 155/83 01/29/19 08:00 72 01/29/19 08:00 98.7 80 22 155/83 (107) 95 01/29/19 08:00 Venturi Mask 10.0 01/29/19 04:00 71 01/29/19 04:00 98.1 64 21 133/70 (91) 98 01/29/19 04:00 Venturi Mask 10.0 01/29/19 03:17 61 21 96 Facial 50 01/29/19 00:20 89 24 94 Facial 50 01/29/19 00:00 69 01/29/19 00:00 Venturi Mask 10.0 01/29/19 00:00 98.2 78 22 140/78 (98) 97 01/28/19 20:30 138/77 01/28/19 20:00 Venturi Mask 10.0 01/28/19 20:00 62 01/28/19 20:00 98.0 85 23 138/77 (97) 96 01/28/19 18:56 Venturi Mask 12.0 50 01/28/19 18:54 95 Venturi Mask 12.0 50 01/28/19 17:51 82 130/67 01/28/19 17:50 130/67 01/28/19 16:00 98.7 82 25 130/67 (88) 96 01/28/19 16:00 Venturi Mask 10.0 01/28/19 15:22 83 General Appearance: WD/WN, obese EENT: PERRL/EOMI Neck: non-tender, no JVD Rhythm: NSR Cardiovascular: normal peripheral pulses, normal rate, regular rhythm, no gallop/murmur Respiratory/Chest: other - bilateral rhonchi at bases Abdomen: non tender, soft, no mass, other - obese Extremities: no swelling Intake and Output 01/28/19 01/29/19 18:59 06:59 Intake Total 125 ml Output Total 1175 ml 800 ml Balance -1175 ml -675 ml IV Total 125 ml Output Urine Total 1175 ml 800 ml Laboratory Tests Test 01/29/19 04:32 White Blood Count 6.0 K/UL (4.8-10.8) Red Blood Count 3.55 M/UL (4.20-5.40) L Hemoglobin 9.7 G/DL (12.0-16.0) L Hematocrit 29.2 % (37.0-47.0) L Mean Corpuscular Volume 82 FL (80-99) Mean Corpuscular Hemoglobin 27.2 PG (27.0-31.0) Mean Corpuscular Hemoglobin Concent 33.1 G/DL (32.0-36.0) Red Cell Distribution Width 15.8 % (11.6-14.8) H Platelet Count 459 K/UL (150-450) H Mean Platelet Volume 6.3 FL (6.5-10.1) L Neutrophils (%) (Auto) % (45.0-75.0) Lymphocytes (%) (Auto) % (20.0-45.0) Monocytes (%) (Auto) % (1.0-10.0) Eosinophils (%) (Auto) % (0.0-3.0) Basophils (%) (Auto) % (0.0-2.0) Differential Total Cells Counted 100 Neutrophils % (Manual) 89 % (45-75) H Lymphocytes % (Manual) 10 % (20-45) L Monocytes % (Manual) 1 % (1-10) Eosinophils % (Manual) 0 % (0-3) Basophils % (Manual) 0 % (0-2) Band Neutrophils 0 % (0-8) Platelet Estimate Adequate Platelet Morphology Normal Anisocytosis 1+ Sodium Level 140 MMOL/L (136-145) Potassium Level 4.2 MMOL/L (3.5-5.1) Chloride Level 101 MMOL/L (98-107) Carbon Dioxide Level 34 MMOL/L (21-32) H Anion Gap 5 mmol/L (5-15) Blood Urea Nitrogen 21 mg/dL (7-18) H Creatinine 0.7 MG/DL (0.55-1.30) Estimat Glomerular Filtration Rate mL/min (>60) Glucose Level 135 MG/DL (74-106) H Calcium Level 8.8 MG/DL (8.5-10.1) Total Bilirubin 0.4 MG/DL (0.2-1.0) Aspartate Amino Transf (AST/SGOT) 19 U/L (15-37) Alanine Aminotransferase (ALT/SGPT) 17 U/L (12-78) Alkaline Phosphatase 85 U/L (46-116) Total Protein 7.7 G/DL (6.4-8.2) Albumin 2.3 G/DL (3.4-5.0) L Globulin 5.4 g/dL Albumin/Globulin Ratio 0.4 (1.0-2.7) L Microbiology Date/Time Source Procedure Growth Status 01/26/19 15:40 Blood Blood Culture - Preliminary NO GROWTH AFTER 48 HOURS Resulted 01/26/19 15:26 Blood Blood Culture - Preliminary NO GROWTH AFTER 48 HOURS Resulted 01/26/19 15:30 Sputum Induced Gram Stain - Final Complete 01/26/19 15:30 Sputum Induced Sputum Culture - Final NORMAL UPPER RESPIRATORY CLARA PRESENT Complete 01/26/19 15:30 Urine,Suprapubic Urine Culture - Preliminary YEAST Resulted Mariam Ball MD January 29, 2019 14:27
--- NOTE | 2019-01-29 14:31 | NUR ---
CASE MANAGEMENT: REVIEW 01/29/2019 SI:SEPSIS. PNEUMONITIS. T 98.8 HR 85 RR 24 B/P 153/77 SATS 96% ON 10L/VENTURI MASK CO2 34 BUN 21 GLU 135 IS:ZOSYN IV Q8H BACLOFEN PO Q8H METFORMIN PO BID LIPITOR PO QHS CATAPRES PO BID NORVASC PO BID PROTONIX PO QD DIFLUCAN PO QD LASIX PO QD SOLU MEDROL IV Q12H ZANAFLEX PO TID SDU PLAN OF CARE: CXR CONTINUE IV ANTIBx AND LASIX
[2019-01-29 16:00] VITALS: BP 149/71
--- NOTE | 2019-01-29 16:06 | Surgery Progress Note ---
Surgery Progress Note Subjective Additional Comments no acute events. comfortable. stable. labs noted. exam stable. Objective Last 24 Hour Vital Signs Date Time Temp Pulse Resp B/P (MAP) Pulse Ox O2 Delivery O2 Flow Rate FiO2 01/29/19 12:00 98.8 85 24 153/77 (102) 96 01/29/19 12:00 Venturi Mask 10.0 01/29/19 09:56 Venturi Mask 12.0 50 01/29/19 09:55 96 Venturi Mask 12.0 50 01/29/19 08:16 155/83 01/29/19 08:15 80 155/83 01/29/19 08:15 155/83 01/29/19 08:00 72 01/29/19 08:00 98.7 80 22 155/83 (107) 95 01/29/19 08:00 Venturi Mask 10.0 01/29/19 04:00 71 01/29/19 04:00 98.1 64 21 133/70 (91) 98 01/29/19 04:00 Venturi Mask 10.0 01/29/19 03:17 61 21 96 Facial 50 01/29/19 00:20 89 24 94 Facial 50 01/29/19 00:00 69 01/29/19 00:00 Venturi Mask 10.0 01/29/19 00:00 98.2 78 22 140/78 (98) 97 01/28/19 20:30 138/77 01/28/19 20:00 Venturi Mask 10.0 01/28/19 20:00 62 01/28/19 20:00 98.0 85 23 138/77 (97) 96 01/28/19 18:56 Venturi Mask 12.0 50 01/28/19 18:54 95 Venturi Mask 12.0 50 01/28/19 17:51 82 130/67 01/28/19 17:50 130/67 I&O Intake and Output 01/28/19 01/29/19 18:59 06:59 Intake Total 125 ml Output Total 1175 ml 800 ml Balance -1175 ml -675 ml IV Total 125 ml Output Urine Total 1175 ml 800 ml Dressing: saturated Wound: clean Cardiovascular: RSR Respiratory: clear Abdomen: soft, distended, non-tender, present bowel sounds Extremities: no tenderness, no cyanosis Laboratory Tests Test 01/29/19 04:32 White Blood Count 6.0 K/UL (4.8-10.8) Red Blood Count 3.55 M/UL (4.20-5.40) L Hemoglobin 9.7 G/DL (12.0-16.0) L Hematocrit 29.2 % (37.0-47.0) L Mean Corpuscular Volume 82 FL (80-99) Mean Corpuscular Hemoglobin 27.2 PG (27.0-31.0) Mean Corpuscular Hemoglobin Concent 33.1 G/DL (32.0-36.0) Red Cell Distribution Width 15.8 % (11.6-14.8) H Platelet Count 459 K/UL (150-450) H Mean Platelet Volume 6.3 FL (6.5-10.1) L Neutrophils (%) (Auto) % (45.0-75.0) Lymphocytes (%) (Auto) % (20.0-45.0) Monocytes (%) (Auto) % (1.0-10.0) Eosinophils (%) (Auto) % (0.0-3.0) Basophils (%) (Auto) % (0.0-2.0) Differential Total Cells Counted 100 Neutrophils % (Manual) 89 % (45-75) H Lymphocytes % (Manual) 10 % (20-45) L Monocytes % (Manual) 1 % (1-10) Eosinophils % (Manual) 0 % (0-3) Basophils % (Manual) 0 % (0-2) Band Neutrophils 0 % (0-8) Platelet Estimate Adequate Platelet Morphology Normal Anisocytosis 1+ Sodium Level 140 MMOL/L (136-145) Potassium Level 4.2 MMOL/L (3.5-5.1) Chloride Level 101 MMOL/L (98-107) Carbon Dioxide Level 34 MMOL/L (21-32) H Anion Gap 5 mmol/L (5-15) Blood Urea Nitrogen 21 mg/dL (7-18) H Creatinine 0.7 MG/DL (0.55-1.30) Estimat Glomerular Filtration Rate mL/min (>60) Glucose Level 135 MG/DL (74-106) H Calcium Level 8.8 MG/DL (8.5-10.1) Total Bilirubin 0.4 MG/DL (0.2-1.0) Aspartate Amino Transf (AST/SGOT) 19 U/L (15-37) Alanine Aminotransferase (ALT/SGPT) 17 U/L (12-78) Alkaline Phosphatase 85 U/L (46-116) Total Protein 7.7 G/DL (6.4-8.2) Albumin 2.3 G/DL (3.4-5.0) L Globulin 5.4 g/dL Albumin/Globulin Ratio 0.4 (1.0-2.7) L Plan Problems: (1) Decubital ulcer Assessment & Plan: Pt presented on admission with multiple ,Pressure injuries, MASD bilateral breasts folds, abd folds, bilateral groin and medial aspects of both thighs. Erythema with denuded skin noted to affected areas. Moisture intertrigo noted to R groin. Scattered Nevi noted to back and medial aspects of both upper thighs.Pt also noted to have numerous skin tags medial upper thighs. Resolving pressure injury noted to sacral area.Base of wound with pink epithelial with surrounding hyperpigmentation .Small wound noted at sacrococcygeal area(L)1.0cm x (W)0.9cm. Base of wound is moist and viable. Hyperpigmentation from previous pressure injury noted in crevices of skin R ischium. Caregiver at bedside and stated pt has Hx of Recurrent pressure injuries to sacrum and R ischium.Hyperpigmentation noted to L ischium. L heel boggy with non-blanchable erythema non-tender when palpated. Non-blanchable erythema with fluctuance at base medial aspect of R heel. (L) 1.5cm x (W)2.3cm Edemae and Foot drop noted to both feet. Eschar with surrounding erythema noted to R 1st metatarsal head. Small amt purulent exudate noted when wound minimally palpated. Small partial thickness ulcers without exudate noted to dorsum of R 2nd,3rd,4th and 5th metatarsals.Wounds are erythematous at base .Periwound metatarsals are pale and shiny. Tx.Plan: Wash skin folds of both breasts and abd folds with soap and water. Apply Light dusting of Antifungal powder every shift. Apply Triad Paste to buttocks both ischial areas, bilat groin and medial / posterior aspects of both upper thighs with each incontinence care. Apply Triad Paste to sacrum.Cover with Optifoam drsg. Change every 3 days and prn. Swab R 1st metatarsal head with Betadine. Cover with Optifoam drsg Daily and prn. Apply Cavilon to both heels .Cover each heel with Optifoam drsg.Change every 7 days and prn. Apply Betadine to dorsals of 2nd,3rd,4th and 5th metatarsals. Bariatric bed with Air fluidized mattress. Reposition at least every 2hours or as tolerated. Off-load heels with pillow. (2) Multiple sclerosis (3) Obstipation Assessment & Plan: abdomen distended KUB noted and okay exam without tenderness cont with diet will follow with exam (4) Urinary tract infection (5) Hypoxemia (6) Tachycardia (7) Pneumonia Assessment & Plan: Large area of focal bullous emphysema involving the right lung base accounting for the lucency demonstrated on the recent chest x-ray. Generalized emphysema noted within the lungs especially in the upper lobes. Pulmonary edema. Bilateral pleural effusions larger on the right compared to left. Posterior basilar atelectasis and/or pneumonia. (8) Obesities, morbid Assessment & Plan: DAILY ESTIMATED NEEDS: Needs based on Pulmonary, obese 78kg adj 20-25 kcals/kg [id number] total kcals 1-1.5 g protein/kg 78-117 g total protein Fluid per MD, on lasix NUTRITION DIAGNOSIS: 1) Decreased sodium and fat intake needs R/T cardiac hx, PNA as evidenced by on diuretics, HTN, BMI >40, pt is @191% [place] Body Weight. 2) Self feeding difficulty r/t MS as evidenced by pt w/ BL UE contractures, requires 1:1 feedings. PO DIET RECOMMENDATIONS: Cardiac, CCHO MED (texture per MEDICAL WRITER) ---- ADDITIONAL RECOMMENDATIONS: 1) MEDICAL WRITER eval for appropriate texture (h/o MS w/ contractures, need for 1:1) 2) Wound Care: photos noted, pending MD eval 3) A1C for eval (need [facility] w/ 2x prot) 4) Check lytes daily on lasix, replete as needed (Mg 1.6) (9) Encounter for generalized patient complaints John Toledo January 29, 2019 16:06
--- NOTE | 2019-01-29 19:21 | NUR ---
HAND-OFF: Report given to jackie eaton rn.
--- NOTE | 2019-01-29 19:30 | NUR ---
NURSE NOTES: Received bedside report from Sara Ayers RN. Pt. in bed, awake, a/o x 4. Watching TV with visitors at bedside. In no apparent distress. On 4L/NC. No SOB noted and saturating at 94% Denies pain or discomfort at present moment. IV at left wrist #22g. and right hand #20g. in placed, patent/intact. SR on gambling monitor. Bed in low position. Bed alarm engaged. Call light within reach. Will continue POC.
[2019-01-29 20:00] VITALS: BP 147/68
[2019-01-29] MEDS: TraZODone 100mg tab ORAL PRN (22:02)
[2019-01-30] VITALS: BP 158/85
--- NOTE | 2019-01-30 | NUR ---
Pt. in bed sleeping. When awake, pt is Ox4 In no apparent distress. On 4L/NC. No SOB noted and saturating at 91% Denies pain or discomfort at present time. IV at left wrist #22g. and right hand #20g. in placed, patent/intact. SR on director of cardiac rehabilitation. Bed in low position. Bed alarm engaged. Call light within reach. Will continue POC.
[2019-01-30 04:00] VITALS: BP 160/75
[2019-01-30 04:44] LABS: HEMATOCRIT 32.6 % (37.0-47.0); HEMOGLOBIN 10.6 G/DL (12.0-16.0); MEAN CORPUSCULAR VOLUME 84 FL (80-99); PLATELET COUNT 527 K/UL (150-450); RED BLOOD COUNT 3.88 M/UL (4.20-5.40); RED CELL DISTRIBUTION WIDTH 16.2 % (11.6-14.8); WHITE BLOOD COUNT 5.9 K/UL (4.8-10.8)
[2019-01-30 05:01] LABS: ALANINE AMINOTRANSFERASE 13 U/L (12-78); ALBUMIN 2.4 G/DL (3.4-5.0); ALBUMIN/GLOBULIN RATIO 0.4 (1.0-2.7); ALKALINE PHOSPHATASE 92 U/L (46-116); ANION GAP 6 mmol/L (5-15); ASPARTATE AMINO TRANSFERASE 12 U/L (15-37); BILIRUBIN,TOTAL 0.3 MG/DL (0.2-1.0); BLOOD UREA NITROGEN 21 mg/dL (7-18); CARBON DIOXIDE 33 MMOL/L (21-32); CHLORIDE 102 MMOL/L (98-107); CREATININE 0.7 MG/DL (0.55-1.30); POTASSIUM 3.7 MMOL/L (3.5-5.1); SODIUM 141 MMOL/L (136-145)
--- NOTE | 2019-01-30 06:00 | NUR ---
NURSE NOTES: Pt. in bed, awake Ox4 In no apparent distress. On 4L/NC. No SOB noted and saturating at 94% Denies pain or discomfort at present time. IV at left wrist #22g. and right hand #20g. in place, patent/intact. SR on school bus monitor. No complaints. Bed in low position. Call light within reach. Will continue POC.
--- NOTE | 2019-01-30 07:15 | NUR ---
HAND-OFF: Report given to Leny Burroughs RN
--- NOTE | 2019-01-30 07:15 | NUR ---
NURSE NOTES: Received bedside report from Rivera RN. Pt. in bed, asleep but arousable. No sign of distress. On 4LPM via NC. No grimacing noted. 2 IV site in placed right hand #20g. and left wrist #22g. patent/intact. Suprapubic in placed draining yellow colored urine. Bed in low position, locked. Call light within reach. Will cont. to monitor.
[2019-01-30 08:00] VITALS: BP 156/77
[2019-01-30] MEDS: BETASERON 0.3 MG SUBQ SCH (08:40)
[2019-01-30] MEDS: metFORMIN 500mg tab ORAL SCH ×2 (08:41→18:46)
[2019-01-30] MEDS: Fluconazole 100mg tab ORAL SCH (08:41)
[2019-01-30] MEDS: Lisinopril 20mg tab ORAL SCH ×2 (08:42→21:32)
[2019-01-30] MEDS: Miralax 17gm pkt ORAL SCH ×2 (08:43→08:46)
[2019-01-30] MEDS ORDERED: Furosemide 40mg tab ORAL SCH (09:00)
--- NOTE | 2019-01-30 09:09 | Pulmonology Progress Note ---
Assessment/Plan Assessment/Plan 1. Pneumonia 2. UTI with chronic suprapubic catheter, e coli 3. Multiple sclerosis. 4. Sinus tachycardia 5. Diabetes. 6. Hyponatremia. 7. Neurogenic bladder. 8. Hypertension. 9. Hyperlipidemia. 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 effusions, atelectasis PO steroids for COPD abx per ID disc w RN dc plan home w HH and CG possibly tomorrow Subjective Constitutional: Reports: no symptoms Allergies: Coded Allergies: SULFA (SULFONAMIDE ANTIBIOTICS) (Verified Allergy, Unknown, 11/22/17) Objective Last 24 Hour Vital Signs Date Time Temp Pulse Resp B/P (MAP) Pulse Ox O2 Delivery O2 Flow Rate FiO2 01/30/19 08:42 78 156/77 01/30/19 08:42 156/77 01/30/19 08:41 156/77 01/30/19 08:00 98.8 78 24 156/77 (103) 96 01/30/19 08:00 Nasal Cannula 4.0 01/30/19 07:07 Nasal Cannula 4.0 36 01/30/19 07:07 94 Nasal Cannula 4.0 36 01/30/19 04:00 78 01/30/19 04:00 96.5 81 20 160/75 (103) 94 01/30/19 03:58 Nasal Cannula 4.0 01/30/19 00:00 Nasal Cannula 4.0 01/30/19 00:00 87 20 158/85 (109) 91 01/30/19 00:00 73 01/29/19 21:48 147/68 01/29/19 20:00 98.0 78 20 147/68 (94) 94 01/29/19 20:00 Nasal Cannula 4.0 01/29/19 20:00 80 01/29/19 19:57 93 Nasal Cannula 4.0 36 01/29/19 19:57 Nasal Cannula 4.0 36 01/29/19 17:13 71 149/71 01/29/19 17:13 149/71 01/29/19 16:30 71 01/29/19 16:00 98.5 77 24 149/71 (97) 96 01/29/19 16:00 Venturi Mask 10.0 01/29/19 12:00 98.8 85 24 153/77 (102) 96 01/29/19 12:00 Venturi Mask 10.0 01/29/19 09:56 Venturi Mask 12.0 50 01/29/19 09:55 96 Venturi Mask 12.0 50 Intake and Output 01/29/19 01/30/19 19:00 07:00 Intake Total 75 ml 340 ml Output Total 375 ml 1100 ml Balance -300 ml -760 ml Free Water 240 ml IV Total 75 ml 100 ml Output Urine Total 375 ml 1100 ml # Bowel Movements 1 Objective obese General Appearance: no acute distress Respiratory/Chest: lungs clear, decreased breath sounds Cardiovascular: normal rate Abdomen: soft, non tender Laboratory Tests 01/30/19 03:40: White Blood Count 5.9, Red Blood Count 3.88L, Hemoglobin 10.6L, Hematocrit 32.6L , Mean Corpuscular Volume 84, Mean Corpuscular Hemoglobin 27.4, Mean Corpuscular Hemoglobin Concent 32.6, Red Cell Distribution Width 16.2H, Platelet Count 527H, Mean Platelet Volume 7.0, Neutrophils (%) (Auto) , Lymphocytes (%) (Auto) , Monocytes (%) (Auto) , Eosinophils (%) (Auto) , Basophils (%) (Auto) , Neutrophils % (Manual) [Pending], Lymphocytes % (Manual) [Pending], Platelet Estimate [Pending], Platelet Morphology [Pending], Sodium Level 141, Potassium Level 3.7, Chloride Level 102, Carbon Dioxide Level 33H, Anion Gap 6, Blood Urea Nitrogen 21H, Creatinine 0.7, Estimat Glomerular Filtration Rate , Glucose Level 159H, Calcium Level 9.0, Total Bilirubin 0.3, Aspartate Amino Transf (AST/SGOT) 12L, Alanine Aminotransferase (ALT/SGPT) 13, Alkaline Phosphatase 92, Total Protein 7.8, Albumin 2.4L, Globulin 5.4, Albumin/ Globulin Ratio 0.4L Current Medications Medications (Trade) Dose Ordered Sig/Mj Route PRN Reason Start Time Stop Time Status Last Admin Dose Admin Acetaminophen (Tylenol) 650 mg Q4H PRN ORAL Mild Pain/Temp > 100.5 01/25/19 16:00 02/15/19 15:59 01/29/19 16:30 Amlodipine Besylate (Norvasc) 2.5 mg BID ORAL 01/27/19 18:00 02/26/19 17:59 01/30/19 08:42 Atorvastatin Calcium (Lipitor) 10 mg BEDTIME ORAL 01/25/19 21:00 02/15/19 20:59 01/29/19 21:41 Baclofen (Lioresal) 10 mg EVERY 8 HOURS ORAL 01/27/19 06:00 02/15/19 08:59 01/30/19 06:20 Clonidine HCl (Catapres Tab) 0.1 mg BID ORAL 01/27/19 09:00 02/26/19 08:59 01/30/19 08:41 Fluconazole (Diflucan) 100 mg DAILY ORAL 01/28/19 16:00 02/04/19 15:59 01/30/19 08:41 Furosemide (Lasix) 60 mg DAILY ORAL 01/30/19 09:00 03/01/19 08:59 01/30/19 08:41 Guaifenesin/ Codeine Phosphate (Robitussin with codeine) 5 ml Q6H PRN ORAL For Cough 01/25/19 21:00 02/16/19 20:59 01/26/19 00:22 Hydralazine HCl (Apresoline) 10 mg Q6H PRN IV SBP >170 01/25/19 16:30 02/20/19 16:29 Lisinopril (Prinivil) 20 mg Q12HR ORAL 01/25/19 21:00 02/20/19 12:59 01/30/19 08:42 Metformin HCl (Glucophage) 500 mg TWICE A DAY ORAL 01/25/19 18:00 02/15/19 08:59 01/30/19 08:41 Pantoprazole (Protonix) 40 mg DAILY ORAL 01/26/19 09:00 02/15/19 08:59 01/30/19 08:40 Patient Own Medication (Patient's Own Med) 1 ea QOD SUBQ 01/26/19 09:00 02/17/19 08:59 01/30/19 08:40 Piperacillin Sod/ Tazobactam Sod 3.375 gm/Dextrose 100 ml @ 25 mls/hr EVERY 8 HOURS IVPB 01/26/19 15:30 01/31/19 15:29 01/30/19 06:20 Polyethylene Glycol (Miralax) 17 gm DAILY ORAL 01/26/19 09:00 02/21/19 08:59 01/28/19 09:45 Prednisone (predniSONE) 20 mg BID ORAL 01/30/19 09:00 03/01/19 08:59 Tizanidine HCl (Zanaflex) 4 mg THREE TIMES A DAY ORAL 01/25/19 18:00 02/15/19 08:59 01/30/19 08:43 Trazodone HCl (Desyrel) 100 mg BEDTIME PRN ORAL insomnia 01/25/19 21:00 02/19/19 02:34 01/29/19 22:02 Robb Quiroz MD January 30, 2019 09:09
--- NOTE | 2019-01-30 10:17 | Diagnostic Imaging Report ---
EXAM: XR Chest, 1 View CLINICAL HISTORY: INFECT TECHNIQUE: Frontal view of the chest. COMPARISON: Chest x-ray 01/28/19 819 FINDINGS: Lungs: Hypoventilatory lungs. Bibasilar lung atelectasis/airspace disease. Mild vascular congestion slightly improved. Pleural space: Small to moderate right pleural effusion. Small left pleural effusion. Similar to prior study. No pneumothorax. Heart: Unremarkable. No cardiomegaly. Mediastinum: Unremarkable. Bones/joints: Unremarkable. IMPRESSION: 1. Hypoventilatory lungs. Bibasilar lung atelectasis/airspace disease. 2. Small to moderate right pleural effusion. Small left pleural effusion. Similar to prior study. 3. Mild vascular congestion slightly improved.
[2019-01-30 12:00] VITALS: BP 154/76
--- NOTE | 2019-01-30 13:20 | Cardiology Progress Note ---
Assessment/Plan Problem List: (1) Multiple sclerosis (2) Urinary tract infection (3) Pneumonia (4) Tachycardia (5) Obesities, morbid (6) Diastolic heart failure Status: stable, progressing Status Narrative Pt w/ hypertension and appears w/ pulm congestion by xr. She is completing treatment for UTI and pneumonia Assessment/Plan Continue iv antibiotics per ID, Continue lisinopril, norvasc and clonidine for BP control. Lasix increased to 60 mg /d dc plan noted Subjective ROS Limited/Unobtainable: No Subjective Cardiology for Dr. Perry Mrs Orozco has no c/o. Objective Last 24 Hour Vital Signs Date Time Temp Pulse Resp B/P (MAP) Pulse Ox O2 Delivery O2 Flow Rate FiO2 01/30/19 12:00 Nasal Cannula 4.0 01/30/19 12:00 98.4 75 24 154/76 (102) 98 01/30/19 11:52 78 01/30/19 08:42 78 156/77 01/30/19 08:42 156/77 01/30/19 08:41 156/77 01/30/19 08:00 98.8 78 24 156/77 (103) 96 01/30/19 08:00 Nasal Cannula 4.0 01/30/19 07:44 64 01/30/19 07:07 Nasal Cannula 4.0 36 01/30/19 07:07 94 Nasal Cannula 4.0 36 01/30/19 04:00 78 01/30/19 04:00 96.5 81 20 160/75 (103) 94 01/30/19 03:58 Nasal Cannula 4.0 01/30/19 00:00 Nasal Cannula 4.0 01/30/19 00:00 87 20 158/85 (109) 91 01/30/19 00:00 73 01/29/19 21:48 147/68 01/29/19 20:00 98.0 78 20 147/68 (94) 94 01/29/19 20:00 Nasal Cannula 4.0 01/29/19 20:00 80 01/29/19 19:57 93 Nasal Cannula 4.0 36 01/29/19 19:57 Nasal Cannula 4.0 36 01/29/19 17:13 71 149/71 01/29/19 17:13 149/71 01/29/19 16:30 71 01/29/19 16:00 98.5 77 24 149/71 (97) 96 01/29/19 16:00 Venturi Mask 10.0 General Appearance: WD/WN, no apparent distress, obese EENT: PERRL/EOMI Neck: supple, no JVD Rhythm: NSR Cardiovascular: normal rate, regular rhythm, no gallop/murmur Respiratory/Chest: lungs clear - clear anteriorly Abdomen: non tender, soft, other - obese Extremities: non-tender, no swelling Intake and Output 01/29/19 01/30/19 18:59 06:59 Intake Total 75 ml 340 ml Output Total 375 ml 1100 ml Balance -300 ml -760 ml Free Water 240 ml IV Total 75 ml 100 ml Output Urine Total 375 ml 1100 ml # Bowel Movements 1 Laboratory Tests Test 01/30/19 03:40 White Blood Count 5.9 K/UL (4.8-10.8) Red Blood Count 3.88 M/UL (4.20-5.40) L Hemoglobin 10.6 G/DL (12.0-16.0) L Hematocrit 32.6 % (37.0-47.0) L Mean Corpuscular Volume 84 FL (80-99) Mean Corpuscular Hemoglobin 27.4 PG (27.0-31.0) Mean Corpuscular Hemoglobin Concent 32.6 G/DL (32.0-36.0) Red Cell Distribution Width 16.2 % (11.6-14.8) H Platelet Count 527 K/UL (150-450) H Mean Platelet Volume 7.0 FL (6.5-10.1) Neutrophils (%) (Auto) % (45.0-75.0) Lymphocytes (%) (Auto) % (20.0-45.0) Monocytes (%) (Auto) % (1.0-10.0) Eosinophils (%) (Auto) % (0.0-3.0) Basophils (%) (Auto) % (0.0-2.0) Differential Total Cells Counted 100 Neutrophils % (Manual) 86 % (45-75) H Lymphocytes % (Manual) 11 % (20-45) L Monocytes % (Manual) 3 % (1-10) Eosinophils % (Manual) 0 % (0-3) Basophils % (Manual) 0 % (0-2) Band Neutrophils 0 % (0-8) Platelet Estimate Increased H Platelet Morphology Normal Anisocytosis 1+ Sodium Level 141 MMOL/L (136-145) Potassium Level 3.7 MMOL/L (3.5-5.1) Chloride Level 102 MMOL/L (98-107) Carbon Dioxide Level 33 MMOL/L (21-32) H Anion Gap 6 mmol/L (5-15) Blood Urea Nitrogen 21 mg/dL (7-18) H Creatinine 0.7 MG/DL (0.55-1.30) Estimat Glomerular Filtration Rate mL/min (>60) Glucose Level 159 MG/DL (74-106) H Calcium Level 9.0 MG/DL (8.5-10.1) Total Bilirubin 0.3 MG/DL (0.2-1.0) Aspartate Amino Transf (AST/SGOT) 12 U/L (15-37) L Alanine Aminotransferase (ALT/SGPT) 13 U/L (12-78) Alkaline Phosphatase 92 U/L (46-116) Total Protein 7.8 G/DL (6.4-8.2) Albumin 2.4 G/DL (3.4-5.0) L Globulin 5.4 g/dL Albumin/Globulin Ratio 0.4 (1.0-2.7) Mariam Fisher MD January 30, 2019 13:20
--- NOTE | 2019-01-30 14:34 | NUR ---
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 Bibasilar lung atelectasis/airspace disease IS:ZOSYN 100ml IVPB LIPITOR 10mg PREDNISONE 20mg NORVASC 2.5mg METFORMIN 500mg CLONIDINE 0.1mg LISINOPRIL 20mg SDU STATUS
[2019-01-30 16:00] VITALS: BP 139/72
--- NOTE | 2019-01-30 16:40 | Infectious Diseases Prog Note ---
Assessment/Plan Assessment/Plan ASSESSMENT AND PLAN: 1. e.coli uti/pyelonephritis, pneumonia vs chf, atx, fevers, sputum culture - normal althea, CT chest noted recurrent fevers and sob, ? nosocomial infection, ? HCAP, PVC on chest x-ray , sc-nf, fungal uti - zosyn and diflcuan x 3 days - diuresis - fevers better - monitor labs and chest x-ray - d/w RN and patient 2. Multiple sclerosis. 3. elevated bp - in icu and on tx 4. Suprapubic catheter that is chronic, neurogenic bladder 5. Morbid obesity. 6. Quadriplegia. 7. Hypertension. 8. Hyperlipidemia. 9. Diabetes type 2. 10. Colonic polyps. 11. Anemia. 12. History of colonoscopy. 13. Social history is negative for smoking, alcohol, or drug abuse. 14. Family history is noncontributory. 15. Allergies to sulfa drugs. 16. MAR was noted. 17. Case was discussed with RN. 18. ROBBY care. 19. Wound Skin care protocol. 20. Continue treatment per Dr. Quiroz and consultants. Subjective Constitutional: Reports: fever, other - less sob HEENT: Denies: congestion Respiratory: Denies: shortness of breath Cardiovascular: Denies: chest pain Gastrointestinal/Abdominal: Denies: nausea, vomiting, diarrhea Genitourinary: Reports: other - + weber Neurologic: Denies: headache Psychiatric: Denies: depression Skin: Denies: rash Hematologic: Denies: bleeding Musculoskeletal: Denies: pain Allergies: Coded Allergies: SULFA (SULFONAMIDE ANTIBIOTICS) (Verified Allergy, Unknown, 11/22/17) Objective Vital Signs Last 24 Hour Vital Signs Date Time Temp Pulse Resp B/P (MAP) Pulse Ox O2 Delivery O2 Flow Rate FiO2 01/30/19 16:00 Nasal Cannula 4.0 01/30/19 12:00 Nasal Cannula 4.0 01/30/19 12:00 98.4 75 24 154/76 (102) 98 01/30/19 11:52 78 01/30/19 08:42 78 156/77 01/30/19 08:42 156/77 01/30/19 08:41 156/77 01/30/19 08:00 98.8 78 24 156/77 (103) 96 01/30/19 08:00 Nasal Cannula 4.0 01/30/19 07:44 64 01/30/19 07:07 Nasal Cannula 4.0 36 01/30/19 07:07 94 Nasal Cannula 4.0 36 01/30/19 04:00 78 01/30/19 04:00 96.5 81 20 160/75 (103) 94 01/30/19 03:58 Nasal Cannula 4.0 01/30/19 00:00 Nasal Cannula 4.0 01/30/19 00:00 87 20 158/85 (109) 91 01/30/19 00:00 73 01/29/19 21:48 147/68 01/29/19 20:00 98.0 78 20 147/68 (94) 94 01/29/19 20:00 Nasal Cannula 4.0 01/29/19 20:00 80 01/29/19 19:57 93 Nasal Cannula 4.0 36 01/29/19 19:57 Nasal Cannula 4.0 36 01/29/19 17:13 71 149/71 01/29/19 17:13 149/71 Height (Feet): 5 Height (Inches): 7.00 Weight (Pounds): 200 General Appearance: no acute distress HEENT: normocephalic, atraumatic, anicteric, mucous membranes moist Respiratory/Chest: crackles/rales, rhonchi - bilaterally Cardiovascular: normal rate, regular rhythm, no gallop/murmur, no JVD Abdomen: normal bowel sounds, soft, non tender, no organomegaly, non distended Genitourinary: other - + weber - urine clearer Extremities: no cyanosis Skin: no rash, no ulcers Neurologic/Psychiatric: alert, responsive Lymphatic: no neck adenopathy Musculoskeletal: no effusion Objective Chest x-ray - 01/16/19 - Comparison: 01/15/2019 A single view chest radiograph was obtained. Findings: Patchy infiltrates noted on the right upper lobe and possibly left lung base as well. Generalized interstitial and vascular prominence demonstrated although this may be slightly improved. IMPRESSION: Persistent right upper lobe infiltrate and probable infiltrate left lung base. This could be due to pneumonia or asymmetric edema. Improved interstitial edema over one day Chest x-ray - 01/18/19 - Comparison: 01/16/2019 A single view chest radiograph was obtained. Findings: Developing pulmonary vascular congestion demonstrated. The heart is enlarged. Vascularity is more prominent. IMPRESSION: Development of CHF Chest x-ray - 01/19/19 - Procedure: XRAY Chest 1v Indication: Cough Comparison: 01/18/2019 A single view chest radiograph was obtained. Findings: Prominent pulmonary vascularity and heart size are demonstrated. Small pleural effusions are not excluded. IMPRESSION: Pulmonary vascular congestion. No significant change CT chest: IMPRESSION: Large area of focal bullous emphysema involving the right lung base accounting for the lucency demonstrated on the recent chest x-ray. Generalized emphysema noted within the lungs especially in the upper lobes. Pulmonary edema. Bilateral pleural effusions larger on the right compared to left. Posterior basilar atelectasis and/or pneumonia. Chest x-ray - 01/24/19 - IMPRESSION: Development of a unusual lucency at the right lung base. Query cavitary lesion, not seen previously. Further evaluation with CT is recommended. Bilateral pleural effusions. Worsening CHF Chest x-ray - 01/28/19 - COMPARISON: Chest x-ray dated 01/27/19 FINDINGS: Limitations: Patient's hand overlies the right lower lung, limiting its evaluation. Lungs: Persistent pulmonary vascular congestion. Subsegmental atelectasis in the left lung base. Pleural space: Persistent small left pleural effusion. Right costophrenic angle is obscured and cannot be evaluated. Heart: Cardiomegaly. Mediastinum: Unremarkable. Bones/joints: Unremarkable. IMPRESSION: 1. Patient's hand overlies the right lower lung, limiting its evaluation. 2. Persistent pulmonary vascular congestion. 3. Persistent small left pleural effusion. Right costophrenic angle is obscured and cannot be evaluated. 4. Cardiomegaly. Chest x-ray - 01/30/19 - IMPRESSION: 1. Hypoventilatory lungs. Bibasilar lung atelectasis/airspace disease. 2. Small to moderate right pleural effusion. Small left pleural effusion. Similar to prior study. 3. Mild vascular congestion slightly improved. Microbiology Date/Time Source Procedure Growth Status 01/26/19 15:40 Blood Blood Culture - Preliminary NO GROWTH AFTER 72 HOURS Resulted 01/26/19 15:30 Sputum Induced Gram Stain - Final Complete 01/26/19 15:30 Sputum Induced Sputum Culture - Final NORMAL UPPER RESPIRATORY ALTHEA PRESENT Complete 01/26/19 15:30 Urine,Suprapubic Urine Culture - Final Iraida Famata Complete Laboratory Tests Test 01/30/19 03:40 White Blood Count 5.9 K/UL (4.8-10.8) Red Blood Count 3.88 M/UL (4.20-5.40) L Hemoglobin 10.6 G/DL (12.0-16.0) L Hematocrit 32.6 % (37.0-47.0) L Mean Corpuscular Volume 84 FL (80-99) Mean Corpuscular Hemoglobin 27.4 PG (27.0-31.0) Mean Corpuscular Hemoglobin Concent 32.6 G/DL (32.0-36.0) Red Cell Distribution Width 16.2 % (11.6-14.8) H Platelet Count 527 K/UL (150-450) H Mean Platelet Volume 7.0 FL (6.5-10.1) Neutrophils (%) (Auto) % (45.0-75.0) Lymphocytes (%) (Auto) % (20.0-45.0) Monocytes (%) (Auto) % (1.0-10.0) Eosinophils (%) (Auto) % (0.0-3.0) Basophils (%) (Auto) % (0.0-2.0) Differential Total Cells Counted 100 Neutrophils % (Manual) 86 % (45-75) H Lymphocytes % (Manual) 11 % (20-45) L Monocytes % (Manual) 3 % (1-10) Eosinophils % (Manual) 0 % (0-3) Basophils % (Manual) 0 % (0-2) Band Neutrophils 0 % (0-8) Platelet Estimate Increased H Platelet Morphology Normal Anisocytosis 1+ Sodium Level 141 MMOL/L (136-145) Potassium Level 3.7 MMOL/L (3.5-5.1) Chloride Level 102 MMOL/L (98-107) Carbon Dioxide Level 33 MMOL/L (21-32) H Anion Gap 6 mmol/L (5-15) Blood Urea Nitrogen 21 mg/dL (7-18) H Creatinine 0.7 MG/DL (0.55-1.30) Estimat Glomerular Filtration Rate mL/min (>60) Glucose Level 159 MG/DL (74-106) H Calcium Level 9.0 MG/DL (8.5-10.1) Total Bilirubin 0.3 MG/DL (0.2-1.0) Aspartate Amino Transf (AST/SGOT) 12 U/L (15-37) L Alanine Aminotransferase (ALT/SGPT) 13 U/L (12-78) Alkaline Phosphatase 92 U/L (46-116) Total Protein 7.8 G/DL (6.4-8.2) Albumin 2.4 G/DL (3.4-5.0) L Globulin 5.4 g/dL Albumin/Globulin Ratio 0.4 (1.0-2.7) L Current Medications Medications (Trade) Dose Ordered Sig/Mj Route PRN Reason Start Time Stop Time Status Last Admin Dose Admin Acetaminophen (Tylenol) 650 mg Q4H PRN ORAL Mild Pain/Temp > 100.5 01/25/19 16:00 02/15/19 15:59 01/29/19 16:30 Amlodipine Besylate (Norvasc) 2.5 mg BID ORAL 01/27/19 18:00 02/26/19 17:59 01/30/19 08:42 Atorvastatin Calcium (Lipitor) 10 mg BEDTIME ORAL 01/25/19 21:00 02/15/19 20:59 01/29/19 21:41 Baclofen (Lioresal) 10 mg EVERY 8 HOURS ORAL 01/27/19 06:00 02/15/19 08:59 01/30/19 13:18 Clonidine HCl (Catapres Tab) 0.1 mg BID ORAL 01/27/19 09:00 02/26/19 08:59 01/30/19 08:41 Fluconazole (Diflucan) 100 mg DAILY ORAL 01/28/19 16:00 02/04/19 15:59 01/30/19 08:41 Furosemide (Lasix) 60 mg DAILY ORAL 01/30/19 09:00 03/01/19 08:59 01/30/19 08:41 Guaifenesin/ Codeine Phosphate (Robitussin with codeine) 5 ml Q6H PRN ORAL For Cough 01/25/19 21:00 02/16/19 20:59 01/26/19 00:22 Hydralazine HCl (Apresoline) 10 mg Q6H PRN IV SBP >170 01/25/19 16:30 02/20/19 16:29 Lisinopril (Prinivil) 20 mg Q12HR ORAL 01/25/19 21:00 02/20/19 12:59 01/30/19 08:42 Metformin HCl (Glucophage) 500 mg TWICE A DAY ORAL 01/25/19 18:00 02/15/19 08:59 01/30/19 08:41 Pantoprazole (Protonix) 40 mg DAILY ORAL 01/26/19 09:00 02/15/19 08:59 01/30/19 08:40 Patient Own Medication (Patient's Own Med) 1 ea QOD SUBQ 01/26/19 09:00 02/17/19 08:59 01/30/19 08:40 Piperacillin Sod/ Tazobactam Sod 3.375 gm/Dextrose 100 ml @ 25 mls/hr EVERY 8 HOURS IVPB 01/26/19 15:30 01/31/19 15:29 01/30/19 13:18 Polyethylene Glycol (Miralax) 17 gm DAILY ORAL 01/26/19 09:00 02/21/19 08:59 01/28/19 09:45 Prednisone (predniSONE) 20 mg BID ORAL 01/30/19 09:00 03/01/19 08:59 01/30/19 09:24 Tizanidine HCl (Zanaflex) 4 mg THREE TIMES A DAY ORAL 01/25/19 18:00 02/15/19 08:59 01/30/19 13:18 Trazodone HCl (Desyrel) 100 mg BEDTIME PRN ORAL insomnia 01/25/19 21:00 02/19/19 02:34 01/29/19 22:02 Carroll Miller MD January 30, 2019 16:40
--- NOTE | 2019-01-30 19:27 | NUR ---
HAND-OFF: Report given to Julia STATON. Pt. remain stable.
--- NOTE | 2019-01-30 19:30 | NUR ---
NURSE NOTES: Report received from SHEMAR Pinto. Observed pt lying on the bed. A/O x4. Denies any pain at this time. SR on traffic monitor specialist. On 4L NC, with no signs of SOB. Supra pubic catheter intact and draining well. IV on L W 22G, asymptomatic. Bed in the lowest position. Side rails up x2. Call light within reach. Will continue to monitor.
--- NOTE | 2019-01-30 19:36 | Surgery Progress Note ---
Surgery Progress Note Subjective Additional Comments no acute events. family at bedside. comfortable. no complaints. Objective Last 24 Hour Vital Signs Date Time Temp Pulse Resp B/P (MAP) Pulse Ox O2 Delivery O2 Flow Rate FiO2 01/30/19 18:47 84 139/72 01/30/19 18:45 139/72 01/30/19 16:00 Nasal Cannula 4.0 01/30/19 16:00 98.1 66 20 139/72 (94) 97 01/30/19 16:00 84 01/30/19 12:00 Nasal Cannula 4.0 01/30/19 12:00 98.4 75 24 154/76 (102) 98 01/30/19 11:52 78 01/30/19 08:42 78 156/77 01/30/19 08:42 156/77 01/30/19 08:41 156/77 01/30/19 08:00 98.8 78 24 156/77 (103) 96 01/30/19 08:00 Nasal Cannula 4.0 01/30/19 07:44 64 01/30/19 07:07 Nasal Cannula 4.0 36 01/30/19 07:07 94 Nasal Cannula 4.0 36 01/30/19 04:00 78 01/30/19 04:00 96.5 81 20 160/75 (103) 94 01/30/19 03:58 Nasal Cannula 4.0 01/30/19 00:00 Nasal Cannula 4.0 01/30/19 00:00 87 20 158/85 (109) 91 01/30/19 00:00 73 01/29/19 21:48 147/68 01/29/19 20:00 98.0 78 20 147/68 (94) 94 01/29/19 20:00 Nasal Cannula 4.0 01/29/19 20:00 80 01/29/19 19:57 93 Nasal Cannula 4.0 36 01/29/19 19:57 Nasal Cannula 4.0 36 I&O Intake and Output 01/29/19 01/30/19 18:59 06:59 Intake Total 75 ml 340 ml Output Total 375 ml 1100 ml Balance -300 ml -760 ml Free Water 240 ml IV Total 75 ml 100 ml Output Urine Total 375 ml 1100 ml # Bowel Movements 1 Dressing: saturated Wound: other Drains: other Cardiovascular: RSR Respiratory: clear Abdomen: soft, distended, non-tender, present bowel sounds Extremities: no tenderness, no cyanosis Laboratory Tests Test 01/30/19 03:40 White Blood Count 5.9 K/UL (4.8-10.8) Red Blood Count 3.88 M/UL (4.20-5.40) L Hemoglobin 10.6 G/DL (12.0-16.0) L Hematocrit 32.6 % (37.0-47.0) L Mean Corpuscular Volume 84 FL (80-99) Mean Corpuscular Hemoglobin 27.4 PG (27.0-31.0) Mean Corpuscular Hemoglobin Concent 32.6 G/DL (32.0-36.0) Red Cell Distribution Width 16.2 % (11.6-14.8) H Platelet Count 527 K/UL (150-450) H Mean Platelet Volume 7.0 FL (6.5-10.1) Neutrophils (%) (Auto) % (45.0-75.0) Lymphocytes (%) (Auto) % (20.0-45.0) Monocytes (%) (Auto) % (1.0-10.0) Eosinophils (%) (Auto) % (0.0-3.0) Basophils (%) (Auto) % (0.0-2.0) Differential Total Cells Counted 100 Neutrophils % (Manual) 86 % (45-75) H Lymphocytes % (Manual) 11 % (20-45) L Monocytes % (Manual) 3 % (1-10) Eosinophils % (Manual) 0 % (0-3) Basophils % (Manual) 0 % (0-2) Band Neutrophils 0 % (0-8) Platelet Estimate Increased H Platelet Morphology Normal Anisocytosis 1+ Sodium Level 141 MMOL/L (136-145) Potassium Level 3.7 MMOL/L (3.5-5.1) Chloride Level 102 MMOL/L (98-107) Carbon Dioxide Level 33 MMOL/L (21-32) H Anion Gap 6 mmol/L (5-15) Blood Urea Nitrogen 21 mg/dL (7-18) H Creatinine 0.7 MG/DL (0.55-1.30) Estimat Glomerular Filtration Rate mL/min (>60) Glucose Level 159 MG/DL (74-106) H Calcium Level 9.0 MG/DL (8.5-10.1) Total Bilirubin 0.3 MG/DL (0.2-1.0) Aspartate Amino Transf (AST/SGOT) 12 U/L (15-37) L Alanine Aminotransferase (ALT/SGPT) 13 U/L (12-78) Alkaline Phosphatase 92 U/L (46-116) Total Protein 7.8 G/DL (6.4-8.2) Albumin 2.4 G/DL (3.4-5.0) L Globulin 5.4 g/dL Albumin/Globulin Ratio 0.4 (1.0-2.7) L Plan Problems: (1) Decubital ulcer Assessment & Plan: Pt presented on admission with multiple ,Pressure injuries, MASD bilateral breasts folds, abd folds, bilateral groin and medial aspects of both thighs. Erythema with denuded skin noted to affected areas. Moisture intertrigo noted to R groin. Scattered Nevi noted to back and medial aspects of both upper thighs.Pt also noted to have numerous skin tags medial upper thighs. Resolving pressure injury noted to sacral area.Base of wound with pink epithelial with surrounding hyperpigmentation .Small wound noted at sacrococcygeal area(L)1.0cm x (W)0.9cm. Base of wound is moist and viable. Hyperpigmentation from previous pressure injury noted in crevices of skin R ischium. Caregiver at bedside and stated pt has Hx of Recurrent pressure injuries to sacrum and R ischium.Hyperpigmentation noted to L ischium. L heel boggy with non-blanchable erythema non-tender when palpated. Non-blanchable erythema with fluctuance at base medial aspect of R heel. (L) 1.5cm x (W)2.3cm Edemae and Foot drop noted to both feet. Eschar with surrounding erythema noted to R 1st metatarsal head. Small amt purulent exudate noted when wound minimally palpated. Small partial thickness ulcers without exudate noted to dorsum of R 2nd,3rd,4th and 5th metatarsals.Wounds are erythematous at base .Periwound metatarsals are pale and shiny. Tx.Plan: Wash skin folds of both breasts and abd folds with soap and water. Apply Light dusting of Antifungal powder every shift. Apply Triad Paste to buttocks both ischial areas, bilat groin and medial / posterior aspects of both upper thighs with each incontinence care. Apply Triad Paste to sacrum.Cover with Optifoam drsg. Change every 3 days and prn. Swab R 1st metatarsal head with Betadine. Cover with Optifoam drsg Daily and prn. Apply Cavilon to both heels .Cover each heel with Optifoam drsg.Change every 7 days and prn. Apply Betadine to dorsals of 2nd,3rd,4th and 5th metatarsals. Bariatric bed with Air fluidized mattress. Reposition at least every 2hours or as tolerated. Off-load heels with pillow. cont current regimen upon discharge (2) Multiple sclerosis (3) Obstipation Assessment & Plan: abdomen distended KUB noted and okay exam without tenderness cont with diet which she is tolerating. will follow with exam (4) Urinary tract infection (5) Hypoxemia (6) Tachycardia (7) Pneumonia Assessment & Plan: Large area of focal bullous emphysema involving the right lung base accounting for the lucency demonstrated on the recent chest x-ray. Generalized emphysema noted within the lungs especially in the upper lobes. Pulmonary edema. Bilateral pleural effusions larger on the right compared to left. Posterior basilar atelectasis and/or pneumonia. (8) Obesities, morbid Assessment & Plan: DAILY ESTIMATED NEEDS: Needs based on Pulmonary, obese 78kg adj 20-25 kcals/kg 9062-4560 total kcals 1-1.5 g protein/kg 78-117 g total protein Fluid per MD, on lasix NUTRITION DIAGNOSIS: 1) Decreased sodium and fat intake needs R/T cardiac hx, PNA as evidenced by on diuretics, HTN, BMI >40, pt is @191% [place] Body Weight. 2) Self feeding difficulty r/t MS as evidenced by pt w/ BL UE contractures, requires 1:1 feedings. PO DIET RECOMMENDATIONS: Cardiac, CCHO MED (texture per PHOTO JOURNALIST) ---- ADDITIONAL RECOMMENDATIONS: 1) PHOTO JOURNALIST eval for appropriate texture (h/o MS w/ contractures, need for 1:1) 2) Wound Care: photos noted, pending MD eval 3) A1C for eval (need for diet change to ccho low w/ 2x prot) 4) Check lytes daily on lasix, replete as needed (Mg 1.6) (9) Encounter for generalized patient complaints John Toledo January 30, 2019 19:36
[2019-01-30 20:00] VITALS: BP 134/73
--- NOTE | 2019-01-30 23:07 | NUR ---
RESPIRATORY NOTE: PT REFUSED BIPAP. RISKS AND BENEFITS WERE EXPLAINED TO PT. PT CONTINUES TO REFUSE BIPAP. VS ARE WNL. PT AGREED TO GO ON BIPAP IS SHE FEELS SOB THROUGHOUT THE NIGHT. RN JEN WAS NOTIFIED. NO S/S OF RESPIRATORY DISTRESS NOTED AT THIS TIME. WILL CONTINUE TO CLOSELY MONITOR
--- NOTE | 2019-01-30 23:10 | NUR ---
NURSE NOTES: Pt refused to put bipap, risks and benefits explained and still refused. Pt states that she would have bipap on if she feels SOB. Pt appears to be calm and comfortable. No signs of SOB, on 4L NC with saturation at 96%. Will continue to monitor.
[2019-01-31] VITALS: BP 147/75
--- NOTE | 2019-01-31 01:00 | NUR ---
NURSE NOTES: Observed pt sleeping on the bed. SR with stone lathe operator. No signs of distress noted. Bed bath given. Reposition done with pillow support. Will continue to monitor.
[2019-01-31 04:00] VITALS: BP 155/84
--- NOTE | 2019-01-31 04:00 | NUR ---
NURSE NOTES: Observed pt sleeping on the bed. SR on monitoring manager. EKG done. Reposition done. No distress noted at this time. Addendum: 01/31/19 at 0710 by Jus Sanches RN No Ekg done. wrong pt.
--- NOTE | 2019-01-31 05:23 | NUR ---
RESPIRATORY NOTE: PT REMAINED STABLE ON 4LPM N/C. PT REFUSED BIPAP ALL NIGHT BUT AYO. N/C WELL. PT IS ALERT AND IS ABLE TO CLEARLY EXPRESS HER NEEDS. RN JEN IS AWARE. NO S/S OF RESPIRATORY DISTRESS NOTED AT THIS TIME.
[2019-01-31 06:54] LABS: ALANINE AMINOTRANSFERASE 17 U/L (12-78); ALBUMIN 2.5 G/DL (3.4-5.0); ALBUMIN/GLOBULIN RATIO 0.5 (1.0-2.7); ALKALINE PHOSPHATASE 93 U/L (46-116); ANION GAP 8 mmol/L (5-15); ASPARTATE AMINO TRANSFERASE 13 U/L (15-37); BILIRUBIN,TOTAL 0.3 MG/DL (0.2-1.0); BLOOD UREA NITROGEN 19 mg/dL (7-18); CALCIUM 9.1 MG/DL (8.5-10.1); CARBON DIOXIDE 31 MMOL/L (21-32); CHLORIDE 101 MMOL/L (98-107); CREATININE 0.6 MG/DL (0.55-1.30); POTASSIUM 3.6 MMOL/L (3.5-5.1); SODIUM 140 MMOL/L (136-145)
--- NOTE | 2019-01-31 07:09 | NUR ---
HAND-OFF: Report given to SHEMAR Pinto. Pt sleeping on the bed. No distress noted.
--- NOTE | 2019-01-31 07:10 | NUR ---
NURSE NOTES: Received bedside update from Tyson RN. Pt. in bed, asleep but arousable. No sign of distress. On O2 at 4LPM via NC. No grimacing noted. 2 IV site in placed at right hand #20g and left wrist #22g. Suprapubic cath. in placed patent/intact draining yellow colored urine. Pt. possible d/c home today. Will cont. to monitor.
[2019-01-31 08:00] VITALS: BP 173/90
--- NOTE | 2019-01-31 08:33 | NUR ---
RADIOLOGY DEPT., CHEST X-RAY DONE.-P.DYE
[2019-01-31] MEDS: Fluconazole 100mg tab ORAL SCH (08:49)
[2019-01-31] MEDS: metFORMIN 500mg tab ORAL SCH ×2 (08:49→18:28)
[2019-01-31] MEDS: Lisinopril 20mg tab ORAL SCH ×2 (08:50→22:02)
[2019-01-31] MEDS: Miralax 17gm pkt ORAL SCH (08:52)
--- NOTE | 2019-01-31 11:50 | NUR ---
NURSE NOTES: Tried to wean pt. from 4LPM via NC O2 but unable to tolerate. After 10mins O2 sat went to 86%. Dr. Quiroz ordered O2 at home with home health.
[2019-01-31 12:00] VITALS: BP 142/75
--- NOTE | 2019-01-31 12:40 | Diagnostic Imaging Report ---
Indication: Dyspnea Comparison: 01/30/2019 A single view chest radiograph was obtained. Findings: Pulmonary vascular congestion appears worse. Cardiomegaly is present. Bilateral pleural effusion suspected. IMPRESSION: CHF. Bilateral pleural effusion
--- NOTE | 2019-01-31 12:47 | Pulmonology Progress Note ---
Assessment/Plan Assessment/Plan 1. Pneumonia 2. UTI with chronic suprapubic catheter, e coli 3. Multiple sclerosis. 4. Sinus tachycardia 5. Diabetes. 6. Hyponatremia. 7. Neurogenic bladder. 8. Hypertension. 9. Hyperlipidemia. 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 effusions, atelectasis - increased CHF taper PO steroids for COPD BP high - extra IV lasix abx per ID - change to PO disc w RN dc plan home w HH and CG possibly tomorrow Subjective Constitutional: Reports: no symptoms Respiratory: Denies: shortness of breath Allergies: Coded Allergies: SULFA (SULFONAMIDE ANTIBIOTICS) (Verified Allergy, Unknown, 11/22/17) Objective Last 24 Hour Vital Signs Date Time Temp Pulse Resp B/P (MAP) Pulse Ox O2 Delivery O2 Flow Rate FiO2 01/31/19 12:00 Nasal Cannula 4.0 01/31/19 12:00 98.1 68 18 142/75 (97) 94 01/31/19 11:24 66 01/31/19 08:50 173/90 01/31/19 08:49 173/90 01/31/19 08:48 79 173/90 01/31/19 08:00 Nasal Cannula 4.0 01/31/19 08:00 98.2 79 18 173/90 (117) 93 01/31/19 07:45 78 01/31/19 07:02 Nasal Cannula 4.0 36 01/31/19 07:02 94 Nasal Cannula 4.0 36 01/31/19 05:23 67 22 95 01/31/19 05:23 67 22 95 Nasal Cannula 4.0 36 01/31/19 04:00 Nasal Cannula 4.0 01/31/19 04:00 76 01/31/19 04:00 98.1 75 20 155/84 (107) 97 01/31/19 02:50 65 20 93 01/31/19 01:00 83 18 95 01/31/19 00:00 70 01/31/19 00:00 98.0 73 20 147/75 (99) 96 01/31/19 00:00 Nasal Cannula 4.0 01/30/19 23:07 70 20 96 01/30/19 21:32 134/73 01/30/19 21:20 Nasal Cannula 4.0 36 01/30/19 21:20 97 Nasal Cannula 4.0 36 01/30/19 20:00 Nasal Cannula 4.0 01/30/19 20:00 98.1 66 20 134/73 (93) 98 01/30/19 20:00 76 01/30/19 18:47 84 139/72 01/30/19 18:45 139/72 01/30/19 16:00 Nasal Cannula 4.0 01/30/19 16:00 98.1 66 20 139/72 (94) 97 01/30/19 16:00 84 Intake and Output 01/30/19 01/31/19 19:00 07:00 Intake Total 570 ml 400 ml Output Total 500 ml 750 ml Balance 70 ml -350 ml Intake Oral 570 ml 300 ml IV Total 100 ml Output Urine Total 500 ml 750 ml # Bowel Movements 2 Objective obese General Appearance: no acute distress Respiratory/Chest: lungs clear, decreased breath sounds Cardiovascular: normal rate Laboratory Tests 01/31/19 03:30: Sodium Level 140, Potassium Level 3.6, Chloride Level 101, Carbon Dioxide Level 31, Anion Gap 8, Blood Urea Nitrogen 19H, Creatinine 0.6, Estimat Glomerular Filtration Rate , Glucose Level 135H, Calcium Level 9.1, Total Bilirubin 0.3, Aspartate Amino Transf (AST/SGOT) 13L, Alanine Aminotransferase (ALT/SGPT) 17, Alkaline Phosphatase 93, Pro-B-Type Natriuretic Peptide 787H, Total Protein 7.7 , Albumin 2.5L, Globulin 5.2, Albumin/Globulin Ratio 0.5L Current Medications Medications (Trade) Dose Ordered Sig/Mj Route PRN Reason Start Time Stop Time Status Last Admin Dose Admin Acetaminophen (Tylenol) 650 mg Q4H PRN ORAL Mild Pain/Temp > 100.5 01/25/19 16:00 02/15/19 15:59 01/29/19 16:30 Amlodipine Besylate (Norvasc) 2.5 mg BID ORAL 01/27/19 18:00 02/26/19 17:59 01/31/19 08:48 Atorvastatin Calcium (Lipitor) 10 mg BEDTIME ORAL 01/25/19 21:00 02/15/19 20:59 01/30/19 21:29 Baclofen (Lioresal) 10 mg EVERY 8 HOURS ORAL 01/27/19 06:00 02/15/19 08:59 01/31/19 05:53 Clonidine HCl (Catapres Tab) 0.1 mg BID ORAL 01/27/19 09:00 02/26/19 08:59 01/31/19 08:49 Fluconazole (Diflucan) 100 mg DAILY ORAL 01/28/19 16:00 02/04/19 15:59 01/31/19 08:49 Furosemide (Lasix) 60 mg DAILY ORAL 01/30/19 09:00 03/01/19 08:59 01/31/19 08:49 Guaifenesin/ Codeine Phosphate (Robitussin with codeine) 5 ml Q6H PRN ORAL For Cough 01/25/19 21:00 02/16/19 20:59 01/26/19 00:22 Hydralazine HCl (Apresoline) 10 mg Q6H PRN IV SBP >170 01/25/19 16:30 02/20/19 16:29 Lisinopril (Prinivil) 20 mg Q12HR ORAL 01/25/19 21:00 02/20/19 12:59 01/31/19 08:50 Metformin HCl (Glucophage) 500 mg TWICE A DAY ORAL 01/25/19 18:00 02/15/19 08:59 01/31/19 08:49 Pantoprazole (Protonix) 40 mg DAILY ORAL 01/26/19 09:00 02/15/19 08:59 01/31/19 08:49 Patient Own Medication (Patient's Own Med) 1 ea QOD SUBQ 01/26/19 09:00 02/17/19 08:59 01/30/19 08:40 Piperacillin Sod/ Tazobactam Sod 3.375 gm/Dextrose 100 ml @ 25 mls/hr EVERY 8 HOURS IVPB 01/30/19 22:00 02/04/19 21:59 01/31/19 05:56 Polyethylene Glycol (Miralax) 17 gm DAILY ORAL 01/26/19 09:00 02/21/19 08:59 01/28/19 09:45 Prednisone (predniSONE) 20 mg BID ORAL 01/30/19 09:00 03/01/19 08:59 01/31/19 08:49 Tizanidine HCl (Zanaflex) 4 mg THREE TIMES A DAY ORAL 01/25/19 18:00 02/15/19 08:59 01/31/19 08:49 Trazodone HCl (Desyrel) 100 mg BEDTIME PRN ORAL insomnia 01/25/19 21:00 02/19/19 02:34 01/29/19 22:02 Robb Quiroz MD January 31, 2019 12:47
--- NOTE | 2019-01-31 14:28 | NUR ---
*-* INSURANCE *-* UPDATED CLINICALS AND REVIEW HAVE BEEN FAXED TO: [facility] P- [phone] F- [phone].....REVIEW/CLINICAL
[2019-01-31 16:00] VITALS: BP 137/87
--- NOTE | 2019-01-31 16:12 | Surgery Progress Note ---
Surgery Progress Note Subjective Additional Comments no acute events. comfortable. stable. labs improved. no complaints Objective Last 24 Hour Vital Signs Date Time Temp Pulse Resp B/P (MAP) Pulse Ox O2 Delivery O2 Flow Rate FiO2 01/31/19 12:00 Nasal Cannula 4.0 01/31/19 12:00 98.1 68 18 142/75 (97) 94 01/31/19 11:24 66 01/31/19 08:50 173/90 01/31/19 08:49 173/90 01/31/19 08:48 79 173/90 01/31/19 08:00 Nasal Cannula 4.0 01/31/19 08:00 98.2 79 18 173/90 (117) 93 01/31/19 07:45 78 01/31/19 07:02 Nasal Cannula 4.0 36 01/31/19 07:02 94 Nasal Cannula 4.0 36 01/31/19 05:23 67 22 95 01/31/19 05:23 67 22 95 Nasal Cannula 4.0 36 01/31/19 04:00 Nasal Cannula 4.0 01/31/19 04:00 76 01/31/19 04:00 98.1 75 20 155/84 (107) 97 01/31/19 02:50 65 20 93 01/31/19 01:00 83 18 95 01/31/19 00:00 70 01/31/19 00:00 98.0 73 20 147/75 (99) 96 01/31/19 00:00 Nasal Cannula 4.0 01/30/19 23:07 70 20 96 01/30/19 21:32 134/73 01/30/19 21:20 Nasal Cannula 4.0 36 01/30/19 21:20 97 Nasal Cannula 4.0 36 01/30/19 20:00 Nasal Cannula 4.0 01/30/19 20:00 98.1 66 20 134/73 (93) 98 01/30/19 20:00 76 01/30/19 18:47 84 139/72 01/30/19 18:45 139/72 I&O Intake and Output 01/30/19 01/31/19 19:00 07:00 Intake Total 570 ml 400 ml Output Total 500 ml 750 ml Balance 70 ml -350 ml Intake Oral 570 ml 300 ml IV Total 100 ml Output Urine Total 500 ml 750 ml # Bowel Movements 2 Drains: none Cardiovascular: RSR Respiratory: clear Abdomen: soft, distended, non-tender, present bowel sounds Extremities: no edema, no tenderness, no cyanosis Laboratory Tests Test 01/31/19 03:30 Sodium Level 140 MMOL/L (136-145) Potassium Level 3.6 MMOL/L (3.5-5.1) Chloride Level 101 MMOL/L (98-107) Carbon Dioxide Level 31 MMOL/L (21-32) Anion Gap 8 mmol/L (5-15) Blood Urea Nitrogen 19 mg/dL (7-18) H Creatinine 0.6 MG/DL (0.55-1.30) Estimat Glomerular Filtration Rate mL/min (>60) Glucose Level 135 MG/DL (74-106) H Calcium Level 9.1 MG/DL (8.5-10.1) Total Bilirubin 0.3 MG/DL (0.2-1.0) Aspartate Amino Transf (AST/SGOT) 13 U/L (15-37) L Alanine Aminotransferase (ALT/SGPT) 17 U/L (12-78) Alkaline Phosphatase 93 U/L (46-116) Pro-B-Type Natriuretic Peptide 787 pg/mL (0-125) H Total Protein 7.7 G/DL (6.4-8.2) Albumin 2.5 G/DL (3.4-5.0) L Globulin 5.2 g/dL Albumin/Globulin Ratio 0.5 (1.0-2.7) L Plan Problems: (1) Decubital ulcer Assessment & Plan: Pt presented on admission with multiple ,Pressure injuries, MASD bilateral breasts folds, abd folds, bilateral groin and medial aspects of both thighs. Erythema with denuded skin noted to affected areas. Moisture intertrigo noted to R groin. Scattered Nevi noted to back and medial aspects of both upper thighs.Pt also noted to have numerous skin tags medial upper thighs. Resolving pressure injury noted to sacral area.Base of wound with pink epithelial with surrounding hyperpigmentation .Small wound noted at sacrococcygeal area(L)1.0cm x (W)0.9cm. Base of wound is moist and viable. Hyperpigmentation from previous pressure injury noted in crevices of skin R ischium. Caregiver at bedside and stated pt has Hx of Recurrent pressure injuries to sacrum and R ischium.Hyperpigmentation noted to L ischium. L heel boggy with non-blanchable erythema non-tender when palpated. Non-blanchable erythema with fluctuance at base medial aspect of R heel. (L) 1.5cm x (W)2.3cm Edemae and Foot drop noted to both feet. Eschar with surrounding erythema noted to R 1st metatarsal head. Small amt purulent exudate noted when wound minimally palpated. Small partial thickness ulcers without exudate noted to dorsum of R 2nd,3rd,4th and 5th metatarsals.Wounds are erythematous at base .Periwound metatarsals are pale and shiny. Tx.Plan: Wash skin folds of both breasts and abd folds with soap and water. Apply Light dusting of Antifungal powder every shift. Apply Triad Paste to buttocks both ischial areas, bilat groin and medial / posterior aspects of both upper thighs with each incontinence care. Apply Triad Paste to sacrum.Cover with Optifoam drsg. Change every 3 days and prn. Swab R 1st metatarsal head with Betadine. Cover with Optifoam drsg Daily and prn. Apply Cavilon to both heels .Cover each heel with Optifoam drsg.Change every 7 days and prn. Apply Betadine to dorsals of 2nd,3rd,4th and 5th metatarsals. Bariatric bed with Air fluidized mattress. Reposition at least every 2hours or as tolerated. Off-load heels with pillow. cont current regimen upon discharge (2) Multiple sclerosis (3) Obstipation Assessment & Plan: abdomen distended KUB noted and okay exam without tenderness cont with diet which she is tolerating. will follow with exam (4) Urinary tract infection (5) Hypoxemia (6) Tachycardia (7) Pneumonia Assessment & Plan: Large area of focal bullous emphysema involving the right lung base accounting for the lucency demonstrated on the recent chest x-ray. Generalized emphysema noted within the lungs especially in the upper lobes. Pulmonary edema. Bilateral pleural effusions larger on the right compared to left. Posterior basilar atelectasis and/or pneumonia. (8) Obesities, morbid Assessment & Plan: DAILY ESTIMATED NEEDS: Needs based on Pulmonary, obese 78kg adj 20-25 kcals/kg 2590-8971 total kcals 1-1.5 g protein/kg 78-117 g total protein Fluid per MD, on lasix NUTRITION DIAGNOSIS: 1) Decreased sodium and fat intake needs R/T cardiac hx, PNA as evidenced by on diuretics, HTN, BMI >40, pt is @191% [place] Body Weight. 2) Self feeding difficulty r/t MS as evidenced by pt w/ BL UE contractures, requires 1:1 feedings. PO DIET RECOMMENDATIONS: Cardiac, CCHO MED (texture per RESEARCH ANALYST) ---- ADDITIONAL RECOMMENDATIONS: 1) RESEARCH ANALYST eval for appropriate texture (h/o MS w/ contractures, need for 1:1) 2) Wound Care: photos noted, pending MD eval 3) A1C for eval (need for diet change to ccho low w/ 2x prot) 4) Check lytes daily on lasix, replete as needed (Mg 1.6) (9) Encounter for generalized patient complaints Additional Comments okay to d/c home from surgical standpoint John Toledo January 31, 2019 16:12
--- NOTE | 2019-01-31 16:16 | Cardiology Progress Note ---
Assessment/Plan Assessment/Plan 1. Hypotension, probably multifactorial, possibly volume related versus medication related (resolved) 2. Pneumonia. 3. Multiple sclerosis. 4. Diabetes mellitus. 5. Chronic suprapubic catheter. 6. Decubitus ulcers 7. MS (multiple sclerosis) 8. edema 9. Labiel htn blood cx neg sofar still urine cx positive off ivf on acie echo report noted nomral lv fxn tele personally rev. sinus cxr showed effusion on yasmin right side agree with extra diuretic iv today i will give more in am and as out pt may need 60-80 mg bid Objective Last 24 Hour Vital Signs Date Time Temp Pulse Resp B/P (MAP) Pulse Ox O2 Delivery O2 Flow Rate FiO2 01/31/19 12:00 Nasal Cannula 4.0 01/31/19 12:00 98.1 68 18 142/75 (97) 94 01/31/19 11:24 66 01/31/19 08:50 173/90 01/31/19 08:49 173/90 01/31/19 08:48 79 173/90 01/31/19 08:00 Nasal Cannula 4.0 01/31/19 08:00 98.2 79 18 173/90 (117) 93 01/31/19 07:45 78 01/31/19 07:02 Nasal Cannula 4.0 36 01/31/19 07:02 94 Nasal Cannula 4.0 36 01/31/19 05:23 67 22 95 01/31/19 05:23 67 22 95 Nasal Cannula 4.0 36 01/31/19 04:00 Nasal Cannula 4.0 01/31/19 04:00 76 01/31/19 04:00 98.1 75 20 155/84 (107) 97 01/31/19 02:50 65 20 93 01/31/19 01:00 83 18 95 01/31/19 00:00 70 01/31/19 00:00 98.0 73 20 147/75 (99) 96 01/31/19 00:00 Nasal Cannula 4.0 01/30/19 23:07 70 20 96 01/30/19 21:32 134/73 01/30/19 21:20 Nasal Cannula 4.0 36 01/30/19 21:20 97 Nasal Cannula 4.0 36 01/30/19 20:00 Nasal Cannula 4.0 01/30/19 20:00 98.1 66 20 134/73 (93) 98 01/30/19 20:00 76 01/30/19 18:47 84 139/72 01/30/19 18:45 139/72 General Appearance: no apparent distress, alert, obese, isolation precautions Neck: supple Cardiovascular: regular rhythm Respiratory/Chest: lungs clear - ant Abdomen: normal bowel sounds, non tender, soft Extremities: no swelling Intake and Output 01/30/19 01/31/19 19:00 07:00 Intake Total 570 ml 400 ml Output Total 500 ml 750 ml Balance 70 ml -350 ml Intake Oral 570 ml 300 ml IV Total 100 ml Output Urine Total 500 ml 750 ml # Bowel Movements 2 Laboratory Tests Test 01/31/19 03:30 Sodium Level 140 MMOL/L (136-145) Potassium Level 3.6 MMOL/L (3.5-5.1) Chloride Level 101 MMOL/L (98-107) Carbon Dioxide Level 31 MMOL/L (21-32) Anion Gap 8 mmol/L (5-15) Blood Urea Nitrogen 19 mg/dL (7-18) H Creatinine 0.6 MG/DL (0.55-1.30) Estimat Glomerular Filtration Rate mL/min (>60) Glucose Level 135 MG/DL (74-106) H Calcium Level 9.1 MG/DL (8.5-10.1) Total Bilirubin 0.3 MG/DL (0.2-1.0) Aspartate Amino Transf (AST/SGOT) 13 U/L (15-37) L Alanine Aminotransferase (ALT/SGPT) 17 U/L (12-78) Alkaline Phosphatase 93 U/L (46-116) Pro-B-Type Natriuretic Peptide 787 pg/mL (0-125) H Total Protein 7.7 G/DL (6.4-8.2) Albumin 2.5 G/DL (3.4-5.0) L Globulin 5.2 g/dL Albumin/Globulin Ratio 0.5 (1.0-2.7) L Krishna Perry MD January 31, 2019 16:16
--- NOTE | 2019-01-31 16:52 | NUR ---
NURSE NOTES: Called Dr. Bridges regarding pt. IV ATB. Awaiting for response.
--- NOTE | 2019-01-31 17:04 | NUR ---
NURSE NOTES: Received a call back from Dr. Bridges and told RN he is not going to change the atb IV to p.o anymore because the Zosyn is x2 more dose.
[2019-01-31] MEDS ORDERED: NS 275ml ONE (17:23)
--- NOTE | 2019-01-31 19:15 | NUR ---
HAND-OFF: Report given to Tyson STATON. Pt. remain stable. Possible d/c home with home health tomorrow.
--- NOTE | 2019-01-31 19:20 | NUR ---
NURSE NOTES: Report received from SHEMAR Pinto. Observed pt watching television, calm and comfortable. Denies any pain at this time. SR on potline monitor. On 4L nc, no signs of SOB noted. Suprapubic catheter intact and draining well. IV on L W 22G, intact. R W 22G, intact and TKO. Bed in the lowest position. Side rails up x3. Call light within reach. Will continue to monitor.
[2019-01-31 20:00] VITALS: BP 148/74
[2019-01-31] MEDS: TraZODone 100mg tab ORAL PRN (22:02)
[2019-02-01] VITALS: BP 137/75
--- NOTE | 2019-02-01 02:04 | NUR ---
NURSE NOTES: Observed pt sleeping on the bed. No signs of distress noted at this time. Reposition done with pillow support. SR on cardiac care unit nurse. No signs of SOB. Pt wants to be cleaned up later. Will continue to monitor.
--- NOTE | 2019-02-01 03:48 | NUR ---
NURSE NOTES: BP of 162/73 noted and SR on medicare nurse with 78. No signs of distress noted at this time. Bed bath given. Reposition done with pillow support. Pt is talktive, calm and comfortable. Will continue to monitor.
[2019-02-01 04:00] VITALS: BP 162/74
--- NOTE | 2019-02-01 07:10 | NUR ---
HAND-OFF: Report given to charge nurse. No acute distress noted at this time.
[2019-02-01 08:00] VITALS: BP 158/90
--- NOTE | 2019-02-01 08:15 | NUR ---
NURSE NOTES: received pt in the bed, awake, alert, oriented, no co pain no SOB, skin warm and dry to touch, unable to move BLE and BUE, tolerate diet well, suprapubic catheter with yellow urine, dr. Quiroz saw pt, bed in low position, HOB elevated.
[2019-02-01] MEDS: Lisinopril 20mg tab ORAL SCH ×2 (08:58→20:04)
[2019-02-01] MEDS: Fluconazole 100mg tab ORAL SCH (08:59)
[2019-02-01] MEDS: metFORMIN 500mg tab ORAL SCH ×2 (08:59→17:48)
[2019-02-01] MEDS ORDERED: Furosemide 80mg tab ORAL SCH (09:00)
[2019-02-01] MEDS: Miralax 17gm pkt ORAL SCH (09:00)
--- NOTE | 2019-02-01 11:15 | Infectious Diseases Prog Note ---
Assessment/Plan Assessment/Plan ASSESSMENT AND PLAN: 1. e.coli uti/pyelonephritis, pneumonia vs chf, atx, fevers, sputum culture - normal althea, CT chest noted recurrent fevers and sob, ? nosocomial infection, ? HCAP, PVC on chest x-ray , sc-nf, fungal uti - change to augmentin and diflucan x 3 days - diuresis - fevers better - monitor labs and chest x-ray - d/w RN and patient 2. Multiple sclerosis. 3. elevated bp - in icu and on tx 4. Suprapubic catheter that is chronic, neurogenic bladder 5. Morbid obesity. 6. Quadriplegia. 7. Hypertension. 8. Hyperlipidemia. 9. Diabetes type 2. 10. Colonic polyps. 11. Anemia. 12. History of colonoscopy. 13. Social history is negative for smoking, alcohol, or drug abuse. 14. Family history is noncontributory. 15. Allergies to sulfa drugs. 16. MAR was noted. 17. Case was discussed with RN. 18. ROBBY care. 19. Wound Skin care protocol. 20. Continue treatment per Dr. Quiroz and consultants. Subjective Constitutional: Reports: fatigue; Denies: fever HEENT: Denies: congestion Respiratory: Denies: shortness of breath Cardiovascular: Denies: chest pain Gastrointestinal/Abdominal: Denies: nausea, vomiting, diarrhea Genitourinary: Reports: other - + weber - urine clearer Neurologic: Denies: headache Psychiatric: Denies: depression Skin: Denies: rash Hematologic: Denies: bleeding Musculoskeletal: Denies: pain Allergies: Coded Allergies: SULFA (SULFONAMIDE ANTIBIOTICS) (Verified Allergy, Unknown, 11/22/17) Objective Vital Signs Last 24 Hour Vital Signs Date Time Temp Pulse Resp B/P (MAP) Pulse Ox O2 Delivery O2 Flow Rate FiO2 02/01/19 08:59 86 158/90 02/01/19 08:58 158/90 02/01/19 08:58 158/90 02/01/19 08:45 Nasal Cannula 3.0 32 02/01/19 08:45 93 Nasal Cannula 3.0 32 02/01/19 08:00 79 02/01/19 08:00 98.2 86 25 158/90 (112) 94 02/01/19 08:00 Nasal Cannula 4.0 02/01/19 04:00 97.5 78 20 162/74 (103) 94 02/01/19 04:00 74 02/01/19 04:00 Nasal Cannula 4.0 02/01/19 00:00 67 02/01/19 00:00 97.7 69 20 137/75 (95) 95 02/01/19 00:00 Nasal Cannula 4.0 01/31/19 22:02 148/78 01/31/19 20:00 98.1 69 24 148/74 (98) 98 01/31/19 20:00 Nasal Cannula 4.0 01/31/19 20:00 76 01/31/19 20:00 96 Nasal Cannula 4.0 36 01/31/19 20:00 Nasal Cannula 4.0 36 01/31/19 18:28 71 137/87 01/31/19 18:27 137/87 01/31/19 16:00 Nasal Cannula 4.0 01/31/19 16:00 98.1 71 20 137/87 (104) 98 01/31/19 15:18 69 01/31/19 12:00 Nasal Cannula 4.0 01/31/19 12:00 98.1 68 18 142/75 (97) 94 01/31/19 11:24 66 Height (Feet): 5 Height (Inches): 7.00 Weight (Pounds): 205 General Appearance: no acute distress HEENT: normocephalic, atraumatic, anicteric, mucous membranes moist Respiratory/Chest: crackles/rales, rhonchi - bilaterally Cardiovascular: normal rate, regular rhythm, no gallop/murmur, no JVD Abdomen: normal bowel sounds, soft, non tender, no organomegaly, non distended Genitourinary: other - + weber - urine clearer Extremities: no cyanosis Skin: no rash Neurologic/Psychiatric: assistant auditor II-XII grossly normal, alert, oriented x 3, responsive Lymphatic: no neck adenopathy Musculoskeletal: no effusion Objective Chest x-ray - 01/16/19 - Comparison: 01/15/2019 A single view chest radiograph was obtained. Findings: Patchy infiltrates noted on the right upper lobe and possibly left lung base as well. Generalized interstitial and vascular prominence demonstrated although this may be slightly improved. IMPRESSION: Persistent right upper lobe infiltrate and probable infiltrate left lung base. This could be due to pneumonia or asymmetric edema. Improved interstitial edema over one day Chest x-ray - 01/18/19 - Comparison: 01/16/2019 A single view chest radiograph was obtained. Findings: Developing pulmonary vascular congestion demonstrated. The heart is enlarged. Vascularity is more prominent. IMPRESSION: Development of CHF Chest x-ray - 01/19/19 - Procedure: XRAY Chest 1v Indication: Cough Comparison: 01/18/2019 A single view chest radiograph was obtained. Findings: Prominent pulmonary vascularity and heart size are demonstrated. Small pleural effusions are not excluded. IMPRESSION: Pulmonary vascular congestion. No significant change CT chest: IMPRESSION: Large area of focal bullous emphysema involving the right lung base accounting for the lucency demonstrated on the recent chest x-ray. Generalized emphysema noted within the lungs especially in the upper lobes. Pulmonary edema. Bilateral pleural effusions larger on the right compared to left. Posterior basilar atelectasis and/or pneumonia. Chest x-ray - 01/24/19 - IMPRESSION: Development of a unusual lucency at the right lung base. Query cavitary lesion, not seen previously. Further evaluation with CT is recommended. Bilateral pleural effusions. Worsening CHF Chest x-ray - 01/28/19 - COMPARISON: Chest x-ray dated 01/27/19 FINDINGS: Limitations: Patient's hand overlies the right lower lung, limiting its evaluation. Lungs: Persistent pulmonary vascular congestion. Subsegmental atelectasis in the left lung base. Pleural space: Persistent small left pleural effusion. Right costophrenic angle is obscured and cannot be evaluated. Heart: Cardiomegaly. Mediastinum: Unremarkable. Bones/joints: Unremarkable. IMPRESSION: 1. Patient's hand overlies the right lower lung, limiting its evaluation. 2. Persistent pulmonary vascular congestion. 3. Persistent small left pleural effusion. Right costophrenic angle is obscured and cannot be evaluated. 4. Cardiomegaly. Chest x-ray - 01/30/19 - IMPRESSION: 1. Hypoventilatory lungs. Bibasilar lung atelectasis/airspace disease. 2. Small to moderate right pleural effusion. Small left pleural effusion. Similar to prior study. 3. Mild vascular congestion slightly improved. Chest x-ray - 01/31/19: Procedure: XRAY Chest 1v Indication: Dyspnea Comparison: 01/30/2019 A single view chest radiograph was obtained. Findings: Pulmonary vascular congestion appears worse. Cardiomegaly is present. Bilateral pleural effusion suspected. IMPRESSION: CHF. Bilateral pleural effusion Microbiology Date/Time Source Procedure Growth Status 01/26/19 15:40 Blood Blood Culture - Final NO GROWTH AFTER 5 DAYS Complete 01/26/19 15:30 Sputum Induced Gram Stain - Final Complete 01/26/19 15:30 Sputum Induced Sputum Culture - Final NORMAL UPPER RESPIRATORY ALTHEA PRESENT Complete 01/26/19 15:30 Urine,Suprapubic Urine Culture - Final Iraida Famata Complete Labs Test 01/30/19 03:40 01/31/19 03:30 White Blood Count 5.9 K/UL (4.8-10.8) Red Blood Count 3.88 M/UL (4.20-5.40) Hemoglobin 10.6 G/DL (12.0-16.0) Hematocrit 32.6 % (37.0-47.0) Mean Corpuscular Volume 84 FL (80-99) Mean Corpuscular Hemoglobin 27.4 PG (27.0-31.0) Mean Corpuscular Hemoglobin Concent 32.6 G/DL (32.0-36.0) Red Cell Distribution Width 16.2 % (11.6-14.8) Platelet Count 527 K/UL (150-450) Mean Platelet Volume 7.0 FL (6.5-10.1) Neutrophils (%) (Auto) % (45.0-75.0) Lymphocytes (%) (Auto) % (20.0-45.0) Monocytes (%) (Auto) % (1.0-10.0) Eosinophils (%) (Auto) % (0.0-3.0) Basophils (%) (Auto) % (0.0-2.0) Differential Total Cells Counted 100 Neutrophils % (Manual) 86 % (45-75) Lymphocytes % (Manual) 11 % (20-45) Monocytes % (Manual) 3 % (1-10) Eosinophils % (Manual) 0 % (0-3) Basophils % (Manual) 0 % (0-2) Band Neutrophils 0 % (0-8) Platelet Estimate Increased Platelet Morphology Normal Anisocytosis 1+ Sodium Level 141 MMOL/L (136-145) 140 MMOL/L (136-145) Potassium Level 3.7 MMOL/L (3.5-5.1) 3.6 MMOL/L (3.5-5.1) Chloride Level 102 MMOL/L (98-107) 101 MMOL/L (98-107) Carbon Dioxide Level 33 MMOL/L (21-32) 31 MMOL/L (21-32) Anion Gap 6 mmol/L (5-15) 8 mmol/L (5-15) Blood Urea Nitrogen 21 mg/dL (7-18) 19 mg/dL (7-18) Creatinine 0.7 MG/DL (0.55-1.30) 0.6 MG/DL (0.55-1.30) Estimat Glomerular Filtration Rate mL/min (>60) mL/min (>60) Glucose Level 159 MG/DL (74-106) 135 MG/DL (74-106) Calcium Level 9.0 MG/DL (8.5-10.1) 9.1 MG/DL (8.5-10.1) Total Bilirubin 0.3 MG/DL (0.2-1.0) 0.3 MG/DL (0.2-1.0) Aspartate Amino Transf (AST/SGOT) 12 U/L (15-37) 13 U/L (15-37) Alanine Aminotransferase (ALT/SGPT) 13 U/L (12-78) 17 U/L (12-78) Alkaline Phosphatase 92 U/L (46-116) 93 U/L (46-116) Total Protein 7.8 G/DL (6.4-8.2) 7.7 G/DL (6.4-8.2) Albumin 2.4 G/DL (3.4-5.0) 2.5 G/DL (3.4-5.0) Globulin 5.4 g/dL 5.2 g/dL Albumin/Globulin Ratio 0.4 (1.0-2.7) 0.5 (1.0-2.7) Pro-B-Type Natriuretic Peptide 787 pg/mL (0-125) Current Medications Medications (Trade) Dose Ordered Sig/Mj Route PRN Reason Start Time Stop Time Status Last Admin Dose Admin Acetaminophen (Tylenol) 650 mg Q4H PRN ORAL Mild Pain/Temp > 100.5 01/25/19 16:00 02/15/19 15:59 02/01/19 06:00 Amlodipine Besylate (Norvasc) 2.5 mg BID ORAL 01/27/19 18:00 02/26/19 17:59 02/01/19 08:59 Atorvastatin Calcium (Lipitor) 10 mg BEDTIME ORAL 01/25/19 21:00 02/15/19 20:59 01/31/19 22:03 Baclofen (Lioresal) 10 mg EVERY 8 HOURS ORAL 01/27/19 06:00 02/15/19 08:59 02/01/19 06:01 Clonidine HCl (Catapres Tab) 0.1 mg BID ORAL 01/27/19 09:00 02/26/19 08:59 02/01/19 08:58 Fluconazole (Diflucan) 100 mg DAILY ORAL 01/28/19 16:00 02/04/19 15:59 02/01/19 08:59 Furosemide (Lasix) 40 mg Q12HR IV 02/01/19 06:00 03/03/19 05:59 02/01/19 08:57 Guaifenesin/ Codeine Phosphate (Robitussin with codeine) 5 ml Q6H PRN ORAL For Cough 01/25/19 21:00 02/16/19 20:59 01/26/19 00:22 Hydralazine HCl (Apresoline) 10 mg Q6H PRN IV SBP >170 01/25/19 16:30 02/20/19 16:29 Lisinopril (Prinivil) 20 mg Q12HR ORAL 01/25/19 21:00 02/20/19 12:59 02/01/19 08:58 Metformin HCl (Glucophage) 500 mg TWICE A DAY ORAL 01/25/19 18:00 02/15/19 08:59 02/01/19 08:59 Pantoprazole (Protonix) 40 mg DAILY ORAL 01/26/19 09:00 02/15/19 08:59 02/01/19 08:58 Patient Own Medication (Patient's Own Med) 1 ea QOD SUBQ 01/26/19 09:00 02/17/19 08:59 01/30/19 08:40 Piperacillin Sod/ Tazobactam Sod 3.375 gm/Dextrose 100 ml @ 25 mls/hr EVERY 8 HOURS IVPB 01/30/19 22:00 02/04/19 21:59 02/01/19 06:00 Polyethylene Glycol (Miralax) 17 gm DAILY ORAL 01/26/19 09:00 02/21/19 08:59 01/28/19 09:45 Prednisone (predniSONE) 20 mg DAILY ORAL 02/01/19 09:00 03/03/19 08:59 02/01/19 08:59 Tizanidine HCl (Zanaflex) 4 mg THREE TIMES A DAY ORAL 01/25/19 18:00 02/15/19 08:59 02/01/19 08:58 Trazodone HCl (Desyrel) 100 mg BEDTIME PRN ORAL insomnia 01/25/19 21:00 02/19/19 02:34 01/31/19 22:02 Carroll Miller MD February 01, 2019 11:15
[2019-02-01 12:00] VITALS: BP 126/72
--- NOTE | 2019-02-01 12:25 | NUR ---
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
--- NOTE | 2019-02-01 12:26 | Pulmonology Progress Note ---
Assessment/Plan Assessment/Plan 1. Pneumonia 2. UTI with chronic suprapubic catheter, e coli 3. Multiple sclerosis. 4. Sinus tachycardia 5. Diabetes. 6. Hyponatremia. 7. Neurogenic bladder. 8. Hypertension. 9. Hyperlipidemia. 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 effusions, atelectasis - increased CHF taper PO steroids for COPD BP high - disc w cardiology CXR w CHF, effusions abx per ID - changed to PO disc w RN dc plan home w HH and CG possibly tomorrow if diuresis successful Subjective Constitutional: Reports: no symptoms Allergies: Coded Allergies: SULFA (SULFONAMIDE ANTIBIOTICS) (Verified Allergy, Unknown, 11/22/17) Objective Last 24 Hour Vital Signs Date Time Temp Pulse Resp B/P (MAP) Pulse Ox O2 Delivery O2 Flow Rate FiO2 02/01/19 08:59 86 158/90 02/01/19 08:58 158/90 02/01/19 08:58 158/90 02/01/19 08:45 Nasal Cannula 3.0 32 02/01/19 08:45 93 Nasal Cannula 3.0 32 02/01/19 08:00 79 02/01/19 08:00 98.2 86 25 158/90 (112) 94 02/01/19 08:00 Nasal Cannula 4.0 02/01/19 04:00 97.5 78 20 162/74 (103) 94 02/01/19 04:00 74 02/01/19 04:00 Nasal Cannula 4.0 02/01/19 00:00 67 02/01/19 00:00 97.7 69 20 137/75 (95) 95 02/01/19 00:00 Nasal Cannula 4.0 01/31/19 22:02 148/78 01/31/19 20:00 98.1 69 24 148/74 (98) 98 01/31/19 20:00 Nasal Cannula 4.0 01/31/19 20:00 76 01/31/19 20:00 96 Nasal Cannula 4.0 36 01/31/19 20:00 Nasal Cannula 4.0 36 01/31/19 18:28 71 137/87 01/31/19 18:27 137/87 01/31/19 16:00 Nasal Cannula 4.0 01/31/19 16:00 98.1 71 20 137/87 (104) 98 01/31/19 15:18 69 Intake and Output 01/31/19 02/01/19 19:00 07:00 Intake Total 440 ml 500 ml Output Total 2900 ml 1600 ml Balance -2460 ml -1100 ml Intake Oral 440 ml 400 ml IV Total 100 ml Output Urine Total 2900 ml 1600 ml # Bowel Movements 2 2 Objective obese General Appearance: no acute distress Respiratory/Chest: decreased breath sounds Cardiovascular: normal rate Current Medications Medications (Trade) Dose Ordered Sig/Mj Route PRN Reason Start Time Stop Time Status Last Admin Dose Admin Acetaminophen (Tylenol) 650 mg Q4H PRN ORAL Mild Pain/Temp > 100.5 01/25/19 16:00 02/15/19 15:59 02/01/19 06:00 Amlodipine Besylate (Norvasc) 2.5 mg BID ORAL 01/27/19 18:00 02/26/19 17:59 02/01/19 08:59 Amoxicillin/ Clavulanate Potassium (Augmentin) 875 mg EVERY 12 HOURS ORAL 02/01/19 21:00 02/08/19 20:59 Atorvastatin Calcium (Lipitor) 10 mg BEDTIME ORAL 01/25/19 21:00 02/15/19 20:59 01/31/19 22:03 Baclofen (Lioresal) 10 mg EVERY 8 HOURS ORAL 01/27/19 06:00 02/15/19 08:59 02/01/19 06:01 Clonidine HCl (Catapres Tab) 0.1 mg BID ORAL 01/27/19 09:00 02/26/19 08:59 02/01/19 08:58 Fluconazole (Diflucan) 100 mg DAILY ORAL 01/28/19 16:00 02/04/19 15:59 02/01/19 08:59 Furosemide (Lasix) 40 mg Q12HR IV 02/01/19 06:00 03/03/19 05:59 02/01/19 08:57 Guaifenesin/ Codeine Phosphate (Robitussin with codeine) 5 ml Q6H PRN ORAL For Cough 01/25/19 21:00 02/16/19 20:59 01/26/19 00:22 Hydralazine HCl (Apresoline) 10 mg Q6H PRN IV SBP >170 01/25/19 16:30 02/20/19 16:29 Lisinopril (Prinivil) 20 mg Q12HR ORAL 01/25/19 21:00 02/20/19 12:59 02/01/19 08:58 Metformin HCl (Glucophage) 500 mg TWICE A DAY ORAL 01/25/19 18:00 02/15/19 08:59 02/01/19 08:59 Pantoprazole (Protonix) 40 mg DAILY ORAL 01/26/19 09:00 02/15/19 08:59 02/01/19 08:58 Patient Own Medication (Patient's Own Med) 1 ea QOD SUBQ 01/26/19 09:00 02/17/19 08:59 01/30/19 08:40 Polyethylene Glycol (Miralax) 17 gm DAILY ORAL 01/26/19 09:00 02/21/19 08:59 01/28/19 09:45 Prednisone (predniSONE) 20 mg DAILY ORAL 02/01/19 09:00 03/03/19 08:59 02/01/19 08:59 Tizanidine HCl (Zanaflex) 4 mg THREE TIMES A DAY ORAL 01/25/19 18:00 02/15/19 08:59 02/01/19 08:58 Trazodone HCl (Desyrel) 100 mg BEDTIME PRN ORAL insomnia 01/25/19 21:00 02/19/19 02:34 01/31/19 22:02 Robb Quiroz MD February 01, 2019 12:26
[2019-02-01] MEDS: BETASERON 0.3 MG SUBQ SCH (12:41)
--- NOTE | 2019-02-01 14:00 | NUR ---
NURSE NOTES: vital signs stable, no co pain, no SOB, repositioned, continue monitoring.
--- NOTE | 2019-02-01 14:08 | NUR ---
RD ASSESSMENT & RECOMMENDATIONS SEE CARE ACTIVITY FOR COMPLETE ASSESSMENT DAILY ESTIMATED NEEDS: Needs based on Pulmonary, obese, wounds 78kg adj 20-25 kcals/kg 3504-2209 total kcals 1.25-1.5 g protein/kg 98-117 g total protein 20-25 mL/kg 1142-5403 total fluid mLs NUTRITION DIAGNOSIS: 1) Decreased sodium and fat intake needs R/T cardiac hx, PNA as evidenced by on diuretics, HTN, BMI >40, pt is @ 191% [place] Body Weight. 2) Self feeding difficulty r/t MS as evidenced by pt w/ BL UE contractures, requires 1:1 feedings. CURRENT DIET: CCHO MED soft easy chew + NTL PO DIET RECOMMENDATIONS: Cardiac, CCHO MED (texture per HOTEL CLERK) ADDITIONAL RECOMMENDATIONS: 1) Wound Care: add ERI BID + MVI x1 + Vit C 250mg daily 2) A1C for eval (need for diet change to ccho low w/ 2x prot) 3) RE-CALIBRATE BED SCALE FOR ACCURATE CBW, currently reads in error 4) Add HIGH protein snacks in b/w meals . .
--- NOTE | 2019-02-01 14:28 | NUR ---
*-* INSURANCE *-* UPDATED CLINICALS AND REVIEW HAVE BEEN FAXED TO: [facility] P- [phone] F- [phone].....REVIEW/CLINICAL
--- NOTE | 2019-02-01 15:51 | Surgery Progress Note ---
Surgery Progress Note Subjective Additional Comments patient seen and examined. states she is comfortable. no complaints. Objective Last 24 Hour Vital Signs Date Time Temp Pulse Resp B/P (MAP) Pulse Ox O2 Delivery O2 Flow Rate FiO2 02/01/19 14:43 98.2 02/01/19 13:40 98.2 02/01/19 12:00 67 02/01/19 12:00 Nasal Cannula 4.0 02/01/19 12:00 98.7 69 24 126/72 (90) 97 02/01/19 08:59 86 158/90 02/01/19 08:58 158/90 02/01/19 08:58 158/90 02/01/19 08:45 Nasal Cannula 3.0 32 02/01/19 08:45 93 Nasal Cannula 3.0 32 02/01/19 08:00 79 02/01/19 08:00 98.2 86 25 158/90 (112) 94 02/01/19 08:00 Nasal Cannula 4.0 02/01/19 04:00 97.5 78 20 162/74 (103) 94 02/01/19 04:00 74 02/01/19 04:00 Nasal Cannula 4.0 02/01/19 00:00 67 02/01/19 00:00 97.7 69 20 137/75 (95) 95 02/01/19 00:00 Nasal Cannula 4.0 01/31/19 22:02 148/78 01/31/19 20:00 98.1 69 24 148/74 (98) 98 01/31/19 20:00 Nasal Cannula 4.0 01/31/19 20:00 76 01/31/19 20:00 96 Nasal Cannula 4.0 36 01/31/19 20:00 Nasal Cannula 4.0 36 01/31/19 18:28 71 137/87 01/31/19 18:27 137/87 01/31/19 16:00 Nasal Cannula 4.0 01/31/19 16:00 98.1 71 20 137/87 (104) 98 I&O Intake and Output 01/31/19 02/01/19 19:00 07:00 Intake Total 440 ml 500 ml Output Total 2900 ml 1600 ml Balance -2460 ml -1100 ml Intake Oral 440 ml 400 ml IV Total 100 ml Output Urine Total 2900 ml 1600 ml # Bowel Movements 2 2 Dressing: other Wound: other Drains: other Cardiovascular: RSR Respiratory: decreased breath sounds Abdomen: soft, distended, non-tender, present bowel sounds Extremities: edema, no tenderness, no cyanosis Plan Problems: (1) Decubital ulcer Assessment & Plan: Pt presented on admission with multiple ,Pressure injuries, MASD bilateral breasts folds, abd folds, bilateral groin and medial aspects of both thighs. Erythema with denuded skin noted to affected areas. Moisture intertrigo noted to R groin. Scattered Nevi noted to back and medial aspects of both upper thighs.Pt also noted to have numerous skin tags medial upper thighs. Resolving pressure injury noted to sacral area.Base of wound with pink epithelial with surrounding hyperpigmentation .Small wound noted at sacrococcygeal area(L)1.0cm x (W)0.9cm. Base of wound is moist and viable. Hyperpigmentation from previous pressure injury noted in crevices of skin R ischium. Caregiver at bedside and stated pt has Hx of Recurrent pressure injuries to sacrum and R ischium.Hyperpigmentation noted to L ischium. L heel boggy with non-blanchable erythema non-tender when palpated. Non-blanchable erythema with fluctuance at base medial aspect of R heel. (L) 1.5cm x (W)2.3cm Edemae and Foot drop noted to both feet. Eschar with surrounding erythema noted to R 1st metatarsal head. Small amt purulent exudate noted when wound minimally palpated. Small partial thickness ulcers without exudate noted to dorsum of R 2nd,3rd,4th and 5th metatarsals.Wounds are erythematous at base .Periwound metatarsals are pale and shiny. Tx.Plan: Wash skin folds of both breasts and abd folds with soap and water. Apply Light dusting of Antifungal powder every shift. Apply Triad Paste to buttocks both ischial areas, bilat groin and medial / posterior aspects of both upper thighs with each incontinence care. Apply Triad Paste to sacrum.Cover with Optifoam drsg. Change every 3 days and prn. Swab R 1st metatarsal head with Betadine. Cover with Optifoam drsg Daily and prn. Apply Cavilon to both heels .Cover each heel with Optifoam drsg.Change every 7 days and prn. Apply Betadine to dorsals of 2nd,3rd,4th and 5th metatarsals. Bariatric bed with Air fluidized mattress. Reposition at least every 2hours or as tolerated. Off-load heels with pillow. cont current regimen upon discharge (2) Multiple sclerosis (3) Obstipation Assessment & Plan: abdomen distended KUB noted and okay exam without tenderness cont with diet which she is tolerating. will follow with exam (4) Urinary tract infection (5) Hypoxemia (6) Tachycardia (7) Pneumonia Assessment & Plan: Large area of focal bullous emphysema involving the right lung base accounting for the lucency demonstrated on the recent chest x-ray. Generalized emphysema noted within the lungs especially in the upper lobes. Pulmonary edema. Bilateral pleural effusions larger on the right compared to left. Posterior basilar atelectasis and/or pneumonia. (8) Obesities, morbid Assessment & Plan: DAILY ESTIMATED NEEDS: Needs based on Pulmonary, obese 78kg adj 20-25 kcals/kg 1214-8872 total kcals 1-1.5 g protein/kg 78-117 g total protein Fluid per MD, on lasix NUTRITION DIAGNOSIS: 1) Decreased sodium and fat intake needs R/T cardiac hx, PNA as evidenced by on diuretics, HTN, BMI >40, pt is @191% [place] Body Weight. 2) Self feeding difficulty r/t MS as evidenced by pt w/ BL UE contractures, requires 1:1 feedings. PO DIET RECOMMENDATIONS: Cardiac, CCHO MED (texture per ENVIRONMENTAL AIDE) ---- ADDITIONAL RECOMMENDATIONS: 1) ENVIRONMENTAL AIDE eval for appropriate texture (h/o MS w/ contractures, need for 1:1) 2) Wound Care: photos noted, pending MD wang 3) A1C for eval (need for diet change to ccho low w/ 2x prot) 4) Check lytes daily on lasix, replete as needed (Mg 1.6) (9) Encounter for generalized patient complaints Additional Comments okay to d/c from surgical standpoint cont with wound care as above upon d/c John Toledo February 01, 2019 15:51
--- NOTE | 2019-02-01 15:58 | NUR ---
ST NOTE: ST WEEKLY AND SWALLOW STATUS: ST WEEKLY: PT MET PO INTAKE GOALS. NURSING STAFF MET ASPIRATION PRECAUTIONS GOALS. PT IS PROGRESSING. SWALLOW STATUS: PT SEEN AT BEDSIDE IN AM. ALERT, COOPERATIVE, WITH PT'S CAREGIVER. COMPLETED BREATHING EXS WITH PT WITH VERBAL AND VISUAL CUES. PT WAS ABLE TO COMPLETE THE EXS. EXPLAINED TO PT AND CAREGIVER RE: BREATHING EXS AND ASPIRATION PRECAUTIONS. PT AND CAREGIVER VERBALIZED THE GOOD UNDERSTANDING OF INFO GIVEN. REFER PT TO HOME HEALTH COIL CONNECTOR UPON DISCHARGE.
--- NOTE | 2019-02-01 16:55 | NUR ---
CAR WASH ATTENDANTADMINISTRATIVE RESIDENT SPOKE WITH CHRISTIAN FROM [facility] MADE AWARE OF PT REQUIRING HOME OXYGEN. INQUIRY FAXED TO [facility]. VERIFIED RECEIPT OF FAX BY LARS. [facility] IS CURRENTLY WORKING ON OXYGEN. [facility] [phone]
[2019-02-01 16:57] VITALS: BP_SYST 139; BP_SYST 158; BP_DIAS 74; BP_DIAS 90
--- NOTE | 2019-02-01 19:20 | NUR ---
NURSE NOTES: Received report form Sacha RN, pt. in bed awake, A/O x'4- able to make needs known, no signs or symptoms of acute cardiac or respiratory distress noted, bed in lowest position and call light within easy reach, bed alarm on, side rails up x's3 and safety brakes engaged, pt. appears to be sating well on 4L NC at 98%- no distress noted, pt. appears to be clean and dry and resting comfortably, Supra pubic catheter intact and patent and draining to gravity, left wrist 22G and Rt. hand 22G both IVS intact and patent, safety measures continued, will continue with plan of care.
--- NOTE | 2019-02-01 19:25 | NUR ---
HAND-OFF: Report given to MADELEINE STATON.
--- NOTE | 2019-02-01 19:48 | Cardiology Progress Note ---
Assessment/Plan Assessment/Plan 1. Hypotension, probably multifactorial, possibly volume related versus medication related (resolved) 2. Pneumonia. 3. Multiple sclerosis. 4. Diabetes mellitus. 5. Chronic suprapubic catheter. 6. Decubitus ulcers 7. MS (multiple sclerosis) 8. edema 9. Labiel htn blood cx neg sofar still urine cx positive off ivf on acie echo report noted nomral lv fxn tele personally rev. sinus agree with extra diuretic iv bid and as out pt may need 60-80 mg bid Subjective Cardiovascular: Denies: chest pain, lightheadedness Respiratory: Reports: shortness of breath - better Genitourinary: Denies: burning Objective Last 24 Hour Vital Signs Date Time Temp Pulse Resp B/P (MAP) Pulse Ox O2 Delivery O2 Flow Rate FiO2 02/01/19 18:58 Nasal Cannula 3.0 32 02/01/19 18:58 95 Nasal Cannula 3.0 32 02/01/19 18:44 98.3 02/01/19 17:45 85 139/74 02/01/19 17:43 139/74 02/01/19 16:57 98.3 85 22 139/74 (95) 95 02/01/19 16:00 81 02/01/19 16:00 Nasal Cannula 4.0 02/01/19 15:57 20 88 02/01/19 14:43 98.2 02/01/19 12:00 67 02/01/19 12:00 Nasal Cannula 4.0 02/01/19 12:00 98.7 69 24 126/72 (90) 97 02/01/19 08:59 86 158/90 02/01/19 08:58 158/90 02/01/19 08:58 158/90 02/01/19 08:45 Nasal Cannula 3.0 32 02/01/19 08:45 93 Nasal Cannula 3.0 32 02/01/19 08:00 79 02/01/19 08:00 98.2 86 25 158/90 (112) 94 02/01/19 08:00 Nasal Cannula 4.0 02/01/19 04:00 97.5 78 20 162/74 (103) 94 02/01/19 04:00 74 02/01/19 04:00 Nasal Cannula 4.0 02/01/19 00:00 67 02/01/19 00:00 97.7 69 20 137/75 (95) 95 02/01/19 00:00 Nasal Cannula 4.0 01/31/19 22:02 148/78 01/31/19 20:00 98.1 69 24 148/74 (98) 98 01/31/19 20:00 Nasal Cannula 4.0 01/31/19 20:00 76 01/31/19 20:00 96 Nasal Cannula 4.0 36 01/31/19 20:00 Nasal Cannula 4.0 36 General Appearance: no apparent distress, alert, obese, patient on isolation Neck: supple Cardiovascular: normal rate, regular rhythm Respiratory/Chest: lungs clear - ant Abdomen: normal bowel sounds, non tender, soft Extremities: moderate edema Intake and Output 01/31/19 02/01/19 19:00 07:00 Intake Total 440 ml 500 ml Output Total 2900 ml 1600 ml Balance -2460 ml -1100 ml Intake Oral 440 ml 400 ml IV Total 100 ml Output Urine Total 2900 ml 1600 ml # Bowel Movements 2 2 Krishna Perry MD February 01, 2019 19:48
[2019-02-01 20:00] VITALS: BP 133/72
[2019-02-01] MEDS: Augmentin 875mg Tab ORAL SCH (20:04)
[2019-02-02] VITALS: BP 131/72
[2019-02-02 04:00] VITALS: BP 153/73
[2019-02-02 05:38] LABS: BASOPHILS % (AUTO) 0.5 % (0.0-2.0); EOSINOPHILS % (AUTO) 0.8 % (0.0-3.0); HEMATOCRIT 35.5 % (37.0-47.0); HEMOGLOBIN 11.5 G/DL (12.0-16.0); LYMPHOCYTES % (AUTO) 28.7 % (20.0-45.0); MEAN CORPUSCULAR VOLUME 85 FL (80-99); PLATELET COUNT 509 K/UL (150-450); RED BLOOD COUNT 4.19 M/UL (4.20-5.40); WHITE BLOOD COUNT 7.3 K/UL (4.8-10.8)
[2019-02-02 05:57] LABS: ANION GAP 6 mmol/L (5-15); BLOOD UREA NITROGEN 19 mg/dL (7-18); CALCIUM 8.9 MG/DL (8.5-10.1); CARBON DIOXIDE 34 MMOL/L (21-32); CHLORIDE 102 MMOL/L (98-107); CREATININE 0.5 MG/DL (0.55-1.30); SODIUM 142 MMOL/L (136-145)
--- NOTE | 2019-02-02 07:04 | NUR ---
HAND-OFF: Report given to Krysten STATON, pt. remains stable and no signs of distress noted.
--- NOTE | 2019-02-02 07:45 | NUR ---
NURSE NOTES: Contacted Dr. Quiroz and informed MD of new potassium level of 3.0. MD acknowledged and ordered potassium chloride 20 mEq PO BID. Order entered, noted, and carried out. Will continue to monitor patient.
[2019-02-02 08:00] VITALS: BP 151/80
[2019-02-02] MEDS: Miralax 17gm pkt ORAL SCH (09:00)
[2019-02-02] MEDS: Augmentin 875mg Tab ORAL SCH ×2 (09:38→21:12)
[2019-02-02] MEDS: metFORMIN 500mg tab ORAL SCH ×2 (09:39→17:46)
[2019-02-02] MEDS: Fluconazole 100mg tab ORAL SCH (09:39)
[2019-02-02] MEDS: Lisinopril 20mg tab ORAL SCH ×2 (09:39→21:13)
--- NOTE | 2019-02-02 09:45 | NUR ---
RADIOLOGY DEPT., CHEST X-RAY DONE.-P.DYE
[2019-02-02 12:00] VITALS: BP 130/65
--- NOTE | 2019-02-02 12:05 | Diagnostic Imaging Report ---
Indication: Shortness of breath Technique: One view of the chest Comparison: 01/31/2019 Findings: Bilateral right greater than left pleural effusions are unchanged. The heart size is normal. Equivocal minimal interstitial congestion is unchanged Impression: Unchanged, over 2 days, findings as above.
--- NOTE | 2019-02-02 12:47 | NUR ---
PEDIATRIC GENETIC COUNSELORPROFESSIONAL FEE CODER SI:CHF VS: BP 151/80, P 91, T 97.5, RR 20, SpO2 92 on 4.0L NC RBC 4.19, H&H 11.5/ 35.5, K 3.0, BUN 19, CR 0.5 IS:NORVASC 2.5mg METFORMIN 500mg CLONIDINE 0.1mg DIFLUCAN 100mg K-DUR 20meq AMOXICILLIN 875mg SDU STATUS
--- NOTE | 2019-02-02 13:15 | NUR ---
*-* INSURANCE *-* UPDATED CLINICALS AND REVIEW HAVE BEEN FAXED TO: [facility] P- [phone] F- [phone].....REVIEW/CLINICAL
--- NOTE | 2019-02-02 15:38 | Surgery Progress Note ---
Surgery Progress Note Subjective Symptoms: improved, tolerating diet, passing flatus Objective Last 24 Hour Vital Signs Date Time Temp Pulse Resp B/P (MAP) Pulse Ox O2 Delivery O2 Flow Rate FiO2 02/02/19 12:00 97.7 82 20 130/65 (86) 95 02/02/19 12:00 Nasal Cannula 4.0 02/02/19 11:51 80 02/02/19 09:40 91 151/80 02/02/19 09:39 151/80 02/02/19 09:39 151/80 02/02/19 08:00 97.5 91 20 151/80 (103) 92 02/02/19 08:00 Nasal Cannula 4.0 02/02/19 07:31 87 02/02/19 06:58 94 Nasal Cannula 2.0 28 02/02/19 06:58 Nasal Cannula 2.0 28 02/02/19 04:00 98.8 73 20 153/73 (99) 94 02/02/19 04:00 70 02/02/19 04:00 Nasal Cannula 4.0 02/02/19 00:00 Nasal Cannula 4.0 02/02/19 00:00 75 02/02/19 00:00 97.7 77 20 131/72 (91) 98 02/01/19 20:04 133/72 02/01/19 20:00 98.4 76 20 133/72 (92) 96 02/01/19 20:00 80 02/01/19 20:00 Nasal Cannula 4.0 02/01/19 18:58 Nasal Cannula 3.0 32 02/01/19 18:58 95 Nasal Cannula 3.0 32 02/01/19 18:44 98.3 02/01/19 17:45 85 139/74 02/01/19 17:43 139/74 02/01/19 16:57 98.3 85 22 139/74 (95) 95 02/01/19 16:00 81 02/01/19 16:00 Nasal Cannula 4.0 02/01/19 15:57 20 88 I&O Intake and Output 02/01/19 02/02/19 19:00 07:00 Intake Total 450 ml Output Total 2100 ml 700 ml Balance -1650 ml -700 ml Intake Oral 450 ml Output Urine Total 2100 ml 700 ml # Bowel Movements 4 3 Cardiovascular: RSR Respiratory: clear Abdomen: soft, distended, non-tender, present bowel sounds Extremities: no edema, no tenderness, no cyanosis Laboratory Tests Test 02/02/19 03:40 White Blood Count 7.3 K/UL (4.8-10.8) Red Blood Count 4.19 M/UL (4.20-5.40) L Hemoglobin 11.5 G/DL (12.0-16.0) L Hematocrit 35.5 % (37.0-47.0) L Mean Corpuscular Volume 85 FL (80-99) Mean Corpuscular Hemoglobin 27.3 PG (27.0-31.0) Mean Corpuscular Hemoglobin Concent 32.3 G/DL (32.0-36.0) Red Cell Distribution Width 17.0 % (11.6-14.8) H Platelet Count 509 K/UL (150-450) H Mean Platelet Volume 7.1 FL (6.5-10.1) Neutrophils (%) (Auto) 63.0 % (45.0-75.0) Lymphocytes (%) (Auto) 28.7 % (20.0-45.0) Monocytes (%) (Auto) 7.0 % (1.0-10.0) Eosinophils (%) (Auto) 0.8 % (0.0-3.0) Basophils (%) (Auto) 0.5 % (0.0-2.0) Sodium Level 142 MMOL/L (136-145) Potassium Level 3.0 MMOL/L (3.5-5.1) L Chloride Level 102 MMOL/L (98-107) Carbon Dioxide Level 34 MMOL/L (21-32) H Anion Gap 6 mmol/L (5-15) Blood Urea Nitrogen 19 mg/dL (7-18) H Creatinine 0.5 MG/DL (0.55-1.30) L Estimat Glomerular Filtration Rate mL/min (>60) Glucose Level 91 MG/DL (74-106) Calcium Level 8.9 MG/DL (8.5-10.1) Plan Problems: (1) Decubital ulcer Assessment & Plan: Pt presented on admission with multiple ,Pressure injuries, MASD bilateral breasts folds, abd folds, bilateral groin and medial aspects of both thighs. Erythema with denuded skin noted to affected areas. Moisture intertrigo noted to R groin. Scattered Nevi noted to back and medial aspects of both upper thighs.Pt also noted to have numerous skin tags medial upper thighs. Resolving pressure injury noted to sacral area.Base of wound with pink epithelial with surrounding hyperpigmentation .Small wound noted at sacrococcygeal area(L)1.0cm x (W)0.9cm. Base of wound is moist and viable. Hyperpigmentation from previous pressure injury noted in crevices of skin R ischium. Caregiver at bedside and stated pt has Hx of Recurrent pressure injuries to sacrum and R ischium.Hyperpigmentation noted to L ischium. L heel boggy with non-blanchable erythema non-tender when palpated. Non-blanchable erythema with fluctuance at base medial aspect of R heel. (L) 1.5cm x (W)2.3cm Edemae and Foot drop noted to both feet. Eschar with surrounding erythema noted to R 1st metatarsal head. Small amt purulent exudate noted when wound minimally palpated. Small partial thickness ulcers without exudate noted to dorsum of R 2nd,3rd,4th and 5th metatarsals.Wounds are erythematous at base .Periwound metatarsals are pale and shiny. Tx.Plan: Wash skin folds of both breasts and abd folds with soap and water. Apply Light dusting of Antifungal powder every shift. Apply Triad Paste to buttocks both ischial areas, bilat groin and medial / posterior aspects of both upper thighs with each incontinence care. Apply Triad Paste to sacrum.Cover with Optifoam drsg. Change every 3 days and prn. Swab R 1st metatarsal head with Betadine. Cover with Optifoam drsg Daily and prn. Apply Cavilon to both heels .Cover each heel with Optifoam drsg.Change every 7 days and prn. Apply Betadine to dorsals of 2nd,3rd,4th and 5th metatarsals. Bariatric bed with Air fluidized mattress. Reposition at least every 2hours or as tolerated. Off-load heels with pillow. cont current regimen upon discharge (2) Multiple sclerosis (3) Obstipation Assessment & Plan: abdomen distended KUB noted and okay exam without tenderness cont with diet which she is tolerating. will follow with exam (4) Urinary tract infection (5) Hypoxemia (6) Tachycardia (7) Pneumonia Assessment & Plan: Large area of focal bullous emphysema involving the right lung base accounting for the lucency demonstrated on the recent chest x-ray. Generalized emphysema noted within the lungs especially in the upper lobes. Pulmonary edema. Bilateral pleural effusions larger on the right compared to left. Posterior basilar atelectasis and/or pneumonia. (8) Obesities, morbid Assessment & Plan: DAILY ESTIMATED NEEDS: Needs based on Pulmonary, obese 78kg adj 20-25 kcals/kg 5382-5047 total kcals 1-1.5 g protein/kg 78-117 g total protein Fluid per MD, on lasix NUTRITION DIAGNOSIS: 1) Decreased sodium and fat intake needs R/T cardiac hx, PNA as evidenced by on diuretics, HTN, BMI >40, pt is @191% [place] Body Weight. 2) Self feeding difficulty r/t MS as evidenced by pt w/ BL UE contractures, requires 1:1 feedings. PO DIET RECOMMENDATIONS: Cardiac, CCHO MED (texture per LABOR RELATIONS OFFICER) ---- ADDITIONAL RECOMMENDATIONS: 1) LABOR RELATIONS OFFICER eval for appropriate texture (h/o MS w/ contractures, need for 1:1) 2) Wound Care: photos noted, pending MD eval 3) A1C for eval (need for diet change to ccho low w/ 2x prot) 4) Check lytes daily on lasix, replete as needed (Mg 1.6) (9) Encounter for generalized patient complaints John Toledo February 02, 2019 15:38
[2019-02-02 16:00] VITALS: BP 147/74
--- NOTE | 2019-02-02 16:39 | NUR ---
NURSE NOTES:WOUND CARE FOLLOW-UP NOTES: Non-blanchable erythema with keloid scarring noted to sacrum and R Ischial areas. Erythema noted to perineum and vaginal labia majora. Pt denied burning or itching. Both heels are blanchable and firm. L 1st metatarsal wound resolving . Minute area or erythema noted. No exudate noted. No new skin concerns noted. All wound prevention protocols are being implemented .Pt anna an APM/[place] mattress overlay. Both heels are floated off bed and pt is positioned side to side with pillow.
--- NOTE | 2019-02-02 17:51 | Pulmonology Progress Note ---
Assessment/Plan Assessment/Plan 1. Pneumonia 2. UTI with chronic suprapubic catheter, e coli 3. Multiple sclerosis. 4. Sinus tachycardia 5. Diabetes. 6. Hyponatremia. 7. Neurogenic bladder. 8. Hypertension. 9. Hyperlipidemia. 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 effusions, atelectasis - increased CHF taper PO steroids for COPD BP better CXR same abx PO lasix PO disc w RN dc plan home w HH and CG prob tomorrow Subjective Constitutional: Reports: no symptoms Respiratory: Denies: productive cough, shortness of breath Allergies: Coded Allergies: SULFA (SULFONAMIDE ANTIBIOTICS) (Verified Allergy, Unknown, 11/22/17) Objective Last 24 Hour Vital Signs Date Time Temp Pulse Resp B/P (MAP) Pulse Ox O2 Delivery O2 Flow Rate FiO2 02/02/19 17:46 80 147/74 02/02/19 17:46 147/74 02/02/19 16:00 Nasal Cannula 4.0 02/02/19 16:00 98.0 80 20 147/74 (98) 96 02/02/19 12:00 97.7 82 20 130/65 (86) 95 02/02/19 12:00 Nasal Cannula 4.0 02/02/19 11:51 80 02/02/19 09:40 91 151/80 02/02/19 09:39 151/80 02/02/19 09:39 151/80 02/02/19 08:00 97.5 91 20 151/80 (103) 92 02/02/19 08:00 Nasal Cannula 4.0 02/02/19 07:31 87 02/02/19 06:58 94 Nasal Cannula 2.0 28 02/02/19 06:58 Nasal Cannula 2.0 28 02/02/19 04:00 98.8 73 20 153/73 (99) 94 02/02/19 04:00 70 02/02/19 04:00 Nasal Cannula 4.0 02/02/19 00:00 Nasal Cannula 4.0 02/02/19 00:00 75 02/02/19 00:00 97.7 77 20 131/72 (91) 98 02/01/19 20:04 133/72 02/01/19 20:00 98.4 76 20 133/72 (92) 96 02/01/19 20:00 80 02/01/19 20:00 Nasal Cannula 4.0 02/01/19 18:58 Nasal Cannula 3.0 32 02/01/19 18:58 95 Nasal Cannula 3.0 32 02/01/19 18:44 98.3 Intake and Output 02/01/19 02/02/19 19:00 07:00 Intake Total 450 ml Output Total 2100 ml 700 ml Balance -1650 ml -700 ml Intake Oral 450 ml Output Urine Total 2100 ml 700 ml # Bowel Movements 4 3 Objective obese General Appearance: no acute distress HEENT: atraumatic Respiratory/Chest: lungs clear, decreased breath sounds Cardiovascular: normal rate Laboratory Tests 02/02/19 03:40: White Blood Count 7.3, Red Blood Count 4.19L, Hemoglobin 11.5L, Hematocrit 35.5L , Mean Corpuscular Volume 85, Mean Corpuscular Hemoglobin 27.3, Mean Corpuscular Hemoglobin Concent 32.3, Red Cell Distribution Width 17.0H, Platelet Count 509H, Mean Platelet Volume 7.1, Neutrophils (%) (Auto) 63.0, Lymphocytes (%) (Auto) 28.7, Monocytes (%) (Auto) 7.0, Eosinophils (%) (Auto) 0.8, Basophils (%) (Auto) 0.5, Sodium Level 142, Potassium Level 3.0L, Chloride Level 102, Carbon Dioxide Level 34H, Anion Gap 6, Blood Urea Nitrogen 19H, Creatinine 0.5L, Estimat Glomerular Filtration Rate , Glucose Level 91, Calcium Level 8.9 Current Medications Medications (Trade) Dose Ordered Sig/Mj Route PRN Reason Start Time Stop Time Status Last Admin Dose Admin Acetaminophen (Tylenol) 650 mg Q4H PRN ORAL Mild Pain/Temp > 100.5 01/25/19 16:00 02/15/19 15:59 02/01/19 14:13 Amlodipine Besylate (Norvasc) 2.5 mg BID ORAL 01/27/19 18:00 02/26/19 17:59 02/02/19 17:46 Amoxicillin/ Clavulanate Potassium (Augmentin) 875 mg EVERY 12 HOURS ORAL 02/01/19 21:00 02/08/19 20:59 02/02/19 09:38 Atorvastatin Calcium (Lipitor) 10 mg BEDTIME ORAL 01/25/19 21:00 02/15/19 20:59 02/01/19 20:04 Baclofen (Lioresal) 10 mg EVERY 8 HOURS ORAL 01/27/19 06:00 02/15/19 08:59 02/02/19 13:28 Clonidine HCl (Catapres Tab) 0.1 mg BID ORAL 01/27/19 09:00 02/26/19 08:59 02/02/19 17:46 Fluconazole (Diflucan) 100 mg DAILY ORAL 01/28/19 16:00 02/04/19 15:59 02/02/19 09:39 Furosemide (Lasix) 40 mg EVERY 12 HOURS ORAL 02/02/19 21:00 03/04/19 20:59 Guaifenesin/ Codeine Phosphate (Robitussin with codeine) 5 ml Q6H PRN ORAL For Cough 01/25/19 21:00 02/16/19 20:59 01/26/19 00:22 Hydralazine HCl (Apresoline) 10 mg Q6H PRN IV SBP >170 01/25/19 16:30 02/20/19 16:29 Lisinopril (Prinivil) 20 mg Q12HR ORAL 01/25/19 21:00 02/20/19 12:59 02/02/19 09:39 Metformin HCl (Glucophage) 500 mg TWICE A DAY ORAL 01/25/19 18:00 02/15/19 08:59 02/02/19 17:46 Pantoprazole (Protonix) 40 mg DAILY ORAL 01/26/19 09:00 02/15/19 08:59 02/02/19 09:40 Patient Own Medication (Patient's Own Med) 1 ea QOD SUBQ 01/26/19 09:00 02/17/19 08:59 02/01/19 12:41 Polyethylene Glycol (Miralax) 17 gm DAILY ORAL 01/26/19 09:00 02/21/19 08:59 01/28/19 09:45 Potassium Chloride (K-Dur) 20 meq TWICE A DAY ORAL 02/02/19 09:00 03/04/19 08:59 02/02/19 17:46 Prednisone (predniSONE) 20 mg DAILY ORAL 02/01/19 09:00 03/03/19 08:59 02/02/19 09:40 Tizanidine HCl (Zanaflex) 4 mg THREE TIMES A DAY ORAL 01/25/19 18:00 02/15/19 08:59 02/02/19 17:46 Trazodone HCl (Desyrel) 100 mg BEDTIME PRN ORAL insomnia 01/25/19 21:00 02/19/19 02:34 01/31/19 22:02 Robb Quiroz MD February 02, 2019 17:51
--- NOTE | 2019-02-02 17:53 | NUR ---
NURSE NOTES: Dr. Quiroz seen and examined patient. Per MD ordered CBC, BMP, BNP labs tomorrow AM. Lamas Lasix 40 mg IV Q12HR to Lasix 40 mg PO Q12HR. Order entered, noted, and carried out. Will continue to monitor patient.
--- NOTE | 2019-02-02 19:30 | NUR ---
NURSE NOTES:Received pt awake and alert, oriented x4, upper extremities contracted, lower extremities flaccid.NSR on the monitor, bp stable, afebrile, pt watching TV at this time. Brothers at bedside.Pt with pressure sore sacral area with optifoam drsg dry and intact. Heplock IV x2 Rt and left hand patent to flushes.. Will continue to monitor.
--- NOTE | 2019-02-02 19:48 | Diagnostic Imaging Report ---
APPROVED REPORT CPT Code: 75405 Risk Factors Hypertension: Comments R/O obstruction subclavian arteries BILATERAL UPPER EXTREMITY: Imaging of the subclavian, axillary, brachial, radial and ulnar arteries is within normal limits. There is no evidence of stenosis or occlusions within these segments. The Doppler waveforms of both upper extremities are multiphasic, consistent with normal inflow to both upper extremities. Limited exam due to patient's contraction.
[2019-02-02 20:00] VITALS: BP 138/76
--- NOTE | 2019-02-02 20:57 | Cardiology Progress Note ---
Assessment/Plan Assessment/Plan 1. Hypotension, probably multifactorial, possibly volume related versus medication related (resolved) 2. Pneumonia. 3. Multiple sclerosis. 4. Diabetes mellitus. 5. Chronic suprapubic catheter. 6. Decubitus ulcers 7. MS (multiple sclerosis) 8. edema 9. Labiel htn blood cx neg sofar still urine cx positive off ivf on acie echo report noted nomral lv fxn tele personally rev. sinus out pt may need 60-80 mg bid dc plan with dr weaver Subjective Cardiovascular: Denies: chest pain Respiratory: Denies: shortness of breath Gastrointestinal/Abdominal: Denies: abdominal pain Genitourinary: Denies: burning Objective Last 24 Hour Vital Signs Date Time Temp Pulse Resp B/P (MAP) Pulse Ox O2 Delivery O2 Flow Rate FiO2 02/02/19 19:34 96 Nasal Cannula 2.0 28 02/02/19 19:34 Nasal Cannula 2.0 28 02/02/19 17:46 80 147/74 02/02/19 17:46 147/74 02/02/19 16:00 Nasal Cannula 4.0 02/02/19 16:00 98.0 80 20 147/74 (98) 96 02/02/19 16:00 78 02/02/19 12:00 97.7 82 20 130/65 (86) 95 02/02/19 12:00 Nasal Cannula 4.0 02/02/19 11:51 80 02/02/19 09:40 91 151/80 02/02/19 09:39 151/80 02/02/19 09:39 151/80 02/02/19 08:00 97.5 91 20 151/80 (103) 92 02/02/19 08:00 Nasal Cannula 4.0 02/02/19 07:31 87 02/02/19 06:58 94 Nasal Cannula 2.0 28 02/02/19 06:58 Nasal Cannula 2.0 28 02/02/19 04:00 98.8 73 20 153/73 (99) 94 02/02/19 04:00 70 02/02/19 04:00 Nasal Cannula 4.0 02/02/19 00:00 Nasal Cannula 4.0 02/02/19 00:00 75 02/02/19 00:00 97.7 77 20 131/72 (91) 98 General Appearance: no apparent distress, alert Neck: supple Cardiovascular: normal rate Respiratory/Chest: lungs clear Abdomen: normal bowel sounds, non tender, soft Extremities: trace edema Intake and Output 02/01/19 02/02/19 19:00 07:00 Intake Total 450 ml Output Total 2100 ml 700 ml Balance -1650 ml -700 ml Intake Oral 450 ml Output Urine Total 2100 ml 700 ml # Bowel Movements 4 3 Laboratory Tests Test 02/02/19 03:40 White Blood Count 7.3 K/UL (4.8-10.8) Red Blood Count 4.19 M/UL (4.20-5.40) L Hemoglobin 11.5 G/DL (12.0-16.0) L Hematocrit 35.5 % (37.0-47.0) L Mean Corpuscular Volume 85 FL (80-99) Mean Corpuscular Hemoglobin 27.3 PG (27.0-31.0) Mean Corpuscular Hemoglobin Concent 32.3 G/DL (32.0-36.0) Red Cell Distribution Width 17.0 % (11.6-14.8) H Platelet Count 509 K/UL (150-450) H Mean Platelet Volume 7.1 FL (6.5-10.1) Neutrophils (%) (Auto) 63.0 % (45.0-75.0) Lymphocytes (%) (Auto) 28.7 % (20.0-45.0) Monocytes (%) (Auto) 7.0 % (1.0-10.0) Eosinophils (%) (Auto) 0.8 % (0.0-3.0) Basophils (%) (Auto) 0.5 % (0.0-2.0) Sodium Level 142 MMOL/L (136-145) Potassium Level 3.0 MMOL/L (3.5-5.1) L Chloride Level 102 MMOL/L (98-107) Carbon Dioxide Level 34 MMOL/L (21-32) H Anion Gap 6 mmol/L (5-15) Blood Urea Nitrogen 19 mg/dL (7-18) H Creatinine 0.5 MG/DL (0.55-1.30) L Estimat Glomerular Filtration Rate mL/min (>60) Glucose Level 91 MG/DL (74-106) Calcium Level 8.9 MG/DL (8.5-10.1) Krishna Perry MD February 02, 2019 20:57
--- NOTE | 2019-02-02 21:00 | NUR ---
NURSE NOTES:Pt had x1 lg soft yellowish stool. cleaned up pt.
[2019-02-02] MEDS: Furosemide 40mg tab ORAL SCH (21:12)
--- NOTE | 2019-02-02 22:00 | NUR ---
NURSE NOTES:Desyrel po meds was given, provided HS snack per pts request.
[2019-02-02] MEDS: TraZODone 100mg tab ORAL PRN (22:02)
--- NOTE | 2019-02-02 22:10 | NUR ---
HAND-OFF: Report given to Catarina STATON.
--- NOTE | 2019-02-02 22:15 | NUR ---
NURSE NOTES: Received a bedside report from SHEMAR Jovel.Patient stable,no c/o pain,no respiratory distress,pt dry and clean,sleeping at this moment,A&O x4 SR on cardiac catheterization technologist,tolerated 2 L/min N/C well,BS active in all quadrants,IV asymptomatic,intact on L and R wrist 22 G TKO,bed secured,call light within a reach,will continue to monitor and follow POC.
[2019-02-03] VITALS: BP 144/71
[2019-02-03 04:00] VITALS: BP 139/59
[2019-02-03 05:43] LABS: BASOPHILS % (AUTO) 0.4 % (0.0-2.0); EOSINOPHILS % (AUTO) 1.4 % (0.0-3.0); HEMOGLOBIN 11.5 G/DL (12.0-16.0); LYMPHOCYTES % (AUTO) 28.7 % (20.0-45.0); MEAN CORPUSCULAR VOLUME 85 FL (80-99); MONOCYTES % (AUTO) 7.5 % (1.0-10.0); PLATELET COUNT 485 K/UL (150-450); RED BLOOD COUNT 4.25 M/UL (4.20-5.40); RED CELL DISTRIBUTION WIDTH 16.6 % (11.6-14.8); WHITE BLOOD COUNT 7.3 K/UL (4.8-10.8)
[2019-02-03 06:17] LABS: ANION GAP 6 mmol/L (5-15); BLOOD UREA NITROGEN 20 mg/dL (7-18); CALCIUM 9.1 MG/DL (8.5-10.1); CARBON DIOXIDE 33 MMOL/L (21-32); CHLORIDE 102 MMOL/L (98-107); CREATININE 0.5 MG/DL (0.55-1.30); POTASSIUM 3.3 MMOL/L (3.5-5.1); SODIUM 141 MMOL/L (136-145)
--- NOTE | 2019-02-03 07:04 | NUR ---
HAND-OFF: Report given to SHEMAR Stafford.Patient stable.
--- NOTE | 2019-02-03 07:11 | NUR ---
NURSE NOTES: Received report from SHEMAR Elmore. Patient is resting in bed, in stable condition. No s/sx of SOB, breathing is even and unlabored. Denies any presence of pain or discomfort at this time. Bed is in lowest position, brakes engaged. Call light is kept within easy reach. Will continue to monitor patient.
[2019-02-03 08:00] VITALS: BP 169/76
[2019-02-03] MEDS: Miralax 17gm pkt ORAL SCH (09:00)
[2019-02-03] MEDS: metFORMIN 500mg tab ORAL SCH ×2 (09:11→17:34)
[2019-02-03] MEDS: Furosemide 40mg tab ORAL SCH ×2 (09:12→21:30)
[2019-02-03] MEDS: Lisinopril 20mg tab ORAL SCH ×2 (09:12→21:30)
[2019-02-03] MEDS: Fluconazole 100mg tab ORAL SCH (09:12)
[2019-02-03] MEDS: Augmentin 875mg Tab ORAL SCH ×2 (09:12→21:29)
[2019-02-03] MEDS: BETASERON 0.3 MG SUBQ SCH (09:13)
--- NOTE | 2019-02-03 11:20 | NUR ---
*-* INSURANCE *-* UPDATED CLINICALS AND REVIEW HAVE BEEN FAXED TO: [facility] P- [phone] F- [phone].....REVIEW/CLINICAL
--- NOTE | 2019-02-03 11:55 | NUR ---
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 EDEMA VS: BP 169/76, P 91. T 97.5, RR 20, SpO2 95 on NC 2.0L H&H 11.5/36.0, Plt. Count 485, K 3.3, BUN 20, CR 0.5 IS:LISINOPRIL 20mg CLONIDINE HCI 0.1mg AMOXICILLIN 875mg METFORMIN 500mg ZANAFLEX 4mg NORVASC 2.5mg K-DUR 20meq SDU STATUS
[2019-02-03 12:00] VITALS: BP 123/65
--- NOTE | 2019-02-03 12:55 | Surgery Progress Note ---
Surgery Progress Note Subjective Additional Comments no complaints looks well comfortable family at bedside. labs improving Objective Last 24 Hour Vital Signs Date Time Temp Pulse Resp B/P (MAP) Pulse Ox O2 Delivery O2 Flow Rate FiO2 02/03/19 12:00 82 02/03/19 12:00 Nasal Cannula 4.0 02/03/19 12:00 97.7 78 20 123/65 (84) 96 02/03/19 09:12 169/76 02/03/19 09:12 169/76 02/03/19 09:11 88 169/76 02/03/19 08:00 88 02/03/19 08:00 Nasal Cannula 4.0 02/03/19 08:00 97.5 91 20 169/76 (107) 95 02/03/19 07:22 Nasal Cannula 2.0 28 02/03/19 07:22 96 Nasal Cannula 2.0 28 02/03/19 04:00 98.0 78 20 139/59 (85) 96 02/03/19 04:00 Nasal Cannula 4.0 02/03/19 03:50 79 02/03/19 00:00 98.7 73 24 144/71 (95) 95 02/03/19 00:00 Nasal Cannula 4.0 02/02/19 23:32 85 02/02/19 21:13 138/76 02/02/19 20:00 99.1 75 24 138/76 (96) 96 02/02/19 20:00 Nasal Cannula 4.0 02/02/19 20:00 69 02/02/19 19:34 96 Nasal Cannula 2.0 28 02/02/19 19:34 Nasal Cannula 2.0 28 02/02/19 17:46 80 147/74 02/02/19 17:46 147/74 02/02/19 16:00 Nasal Cannula 4.0 02/02/19 16:00 98.0 80 20 147/74 (98) 96 02/02/19 16:00 78 I&O Intake and Output 02/02/19 02/03/19 19:00 07:00 Intake Total 400 ml 240 ml Output Total 800 ml Balance 400 ml -560 ml Intake Oral 400 ml 240 ml Output Urine Total 800 ml # Bowel Movements 3 3 Dressing: other Wound: other Drains: other Cardiovascular: RSR Respiratory: clear Abdomen: soft, flat, non-tender, non-distended Extremities: no tenderness, no cyanosis Laboratory Tests Test 02/03/19 03:40 White Blood Count 7.3 K/UL (4.8-10.8) Red Blood Count 4.25 M/UL (4.20-5.40) Hemoglobin 11.5 G/DL (12.0-16.0) L Hematocrit 36.0 % (37.0-47.0) L Mean Corpuscular Volume 85 FL (80-99) Mean Corpuscular Hemoglobin 27.1 PG (27.0-31.0) Mean Corpuscular Hemoglobin Concent 32.1 G/DL (32.0-36.0) Red Cell Distribution Width 16.6 % (11.6-14.8) H Platelet Count 485 K/UL (150-450) H Mean Platelet Volume 7.3 FL (6.5-10.1) Neutrophils (%) (Auto) 62.0 % (45.0-75.0) Lymphocytes (%) (Auto) 28.7 % (20.0-45.0) Monocytes (%) (Auto) 7.5 % (1.0-10.0) Eosinophils (%) (Auto) 1.4 % (0.0-3.0) Basophils (%) (Auto) 0.4 % (0.0-2.0) Sodium Level 141 MMOL/L (136-145) Potassium Level 3.3 MMOL/L (3.5-5.1) L Chloride Level 102 MMOL/L (98-107) Carbon Dioxide Level 33 MMOL/L (21-32) H Anion Gap 6 mmol/L (5-15) Blood Urea Nitrogen 20 mg/dL (7-18) H Creatinine 0.5 MG/DL (0.55-1.30) L Estimat Glomerular Filtration Rate mL/min (>60) Glucose Level 89 MG/DL (74-106) Calcium Level 9.1 MG/DL (8.5-10.1) Pro-B-Type Natriuretic Peptide 200 pg/mL (0-125) H Plan Problems: (1) Decubital ulcer Assessment & Plan: Pt presented on admission with multiple ,Pressure injuries, MASD bilateral breasts folds, abd folds, bilateral groin and medial aspects of both thighs. Erythema with denuded skin noted to affected areas. Moisture intertrigo noted to R groin. Scattered Nevi noted to back and medial aspects of both upper thighs.Pt also noted to have numerous skin tags medial upper thighs. Resolving pressure injury noted to sacral area.Base of wound with pink epithelial with surrounding hyperpigmentation .Small wound noted at sacrococcygeal area(L)1.0cm x (W)0.9cm. Base of wound is moist and viable. Hyperpigmentation from previous pressure injury noted in crevices of skin R ischium. Caregiver at bedside and stated pt has Hx of Recurrent pressure injuries to sacrum and R ischium.Hyperpigmentation noted to L ischium. L heel boggy with non-blanchable erythema non-tender when palpated. Non-blanchable erythema with fluctuance at base medial aspect of R heel. (L) 1.5cm x (W)2.3cm Edemae and Foot drop noted to both feet. Eschar with surrounding erythema noted to R 1st metatarsal head. Small amt purulent exudate noted when wound minimally palpated. Small partial thickness ulcers without exudate noted to dorsum of R 2nd,3rd,4th and 5th metatarsals.Wounds are erythematous at base .Periwound metatarsals are pale and shiny. Tx.Plan: Wash skin folds of both breasts and abd folds with soap and water. Apply Light dusting of Antifungal powder every shift. Apply Triad Paste to buttocks both ischial areas, bilat groin and medial / posterior aspects of both upper thighs with each incontinence care. Apply Triad Paste to sacrum.Cover with Optifoam drsg. Change every 3 days and prn. Swab R 1st metatarsal head with Betadine. Cover with Optifoam drsg Daily and prn. Apply Cavilon to both heels .Cover each heel with Optifoam drsg.Change every 7 days and prn. Apply Betadine to dorsals of 2nd,3rd,4th and 5th metatarsals. Bariatric bed with Air fluidized mattress. Reposition at least every 2hours or as tolerated. Off-load heels with pillow. cont current regimen upon discharge (2) Multiple sclerosis (3) Obstipation Assessment & Plan: abdomen distended KUB noted and okay exam without tenderness cont with diet which she is tolerating. will follow with exam (4) Urinary tract infection (5) Hypoxemia (6) Tachycardia (7) Pneumonia Assessment & Plan: Large area of focal bullous emphysema involving the right lung base accounting for the lucency demonstrated on the recent chest x-ray. Generalized emphysema noted within the lungs especially in the upper lobes. Pulmonary edema. Bilateral pleural effusions larger on the right compared to left. Posterior basilar atelectasis and/or pneumonia. (8) Obesities, morbid Assessment & Plan: DAILY ESTIMATED NEEDS: Needs based on Pulmonary, obese 78kg adj 20-25 kcals/kg 1314-6579 total kcals 1-1.5 g protein/kg 78-117 g total protein Fluid per MD, on lasix NUTRITION DIAGNOSIS: 1) Decreased sodium and fat intake needs R/T cardiac hx, PNA as evidenced by on diuretics, HTN, BMI >40, pt is @191% [place] Body Weight. 2) Self feeding difficulty r/t MS as evidenced by pt w/ BL UE contractures, requires 1:1 feedings. PO DIET RECOMMENDATIONS: Cardiac, CCHO MED (texture per MACHINE PIE MAKER) ---- ADDITIONAL RECOMMENDATIONS: 1) MACHINE PIE MAKER eval for appropriate texture (h/o MS w/ contractures, need for 1:1) 2) Wound Care: photos noted, pending MD [facility] 3) A1C for eval (need for diet change to ccho low w/ 2x prot) 4) Check lytes daily on lasix, replete as needed (Mg 1.6) (9) Encounter for generalized patient complaints Additional Comments okay to d/c from surgical standpoint John Toledo February 03, 2019 12:54
--- NOTE | 2019-02-03 13:19 | NUR ---
NURSE NOTES: Contacted Dr. Quiroz and informed MD of patient's new potassium level of 3.3, pt is on K-dur 20 mEq PO BID at this time. MD acknowledged ordered to change dosage of K-Dur to 40 mEq PO BID. Orders entered, noted, and carried out. Will continue to monitor patient.
[2019-02-03] MEDS ORDERED: PRINIVIL20 MG ORAL (15:03)
[2019-02-03] MEDS ORDERED: FUROSEMIDE40 MG ORAL (15:03)
[2019-02-03] MEDS ORDERED: K-TAB ER20 MEQ ORAL (15:03)
[2019-02-03] MEDS ORDERED: PREDNISONE20 MG ORAL (15:03)
[2019-02-03] MEDS ORDERED: NORVASC2.5 MG ORAL (15:03)
[2019-02-03] MEDS ORDERED: DESYREL100 MG ORAL (15:03)
[2019-02-03] MEDS ORDERED: CLONIDINE0.1 MG ORAL (15:03)
--- NOTE | 2019-02-03 15:18 | Infectious Diseases Prog Note ---
Assessment/Plan Assessment/Plan ASSESSMENT AND PLAN: 1. e.coli uti/pyelonephritis, pneumonia vs chf, atx, fevers, sputum culture - normal [place], CT chest noted recurrent fevers and sob, ? nosocomial infection, ? HCAP, PVC on chest x-ray , sc-nf, fungal uti - augmentin and diflucan x 1 day - diuresis - fevers better - monitor labs and chest x-ray - d/w Dr. Quiroz 2. Multiple sclerosis. 3. elevated bp - in icu and on tx 4. Suprapubic catheter that is chronic, neurogenic bladder 5. Morbid obesity. 6. Quadriplegia. 7. Hypertension. 8. Hyperlipidemia. 9. Diabetes type 2. 10. Colonic polyps. 11. Anemia. 12. History of colonoscopy. 13. Social history is negative for smoking, alcohol, or drug abuse. 14. Family history is noncontributory. 15. Allergies to sulfa drugs. 16. MAR was noted. 17. Case was discussed with RN. 18. ROBBY care. 19. Wound Skin care protocol. 20. Continue treatment per Dr. Quiroz and consultants. Subjective Constitutional: Denies: fever HEENT: Denies: congestion Respiratory: Denies: shortness of breath Cardiovascular: Denies: chest pain Gastrointestinal/Abdominal: Denies: nausea, vomiting, diarrhea Neurologic: Denies: headache Psychiatric: Denies: depression Skin: Denies: rash Hematologic: Denies: bleeding Musculoskeletal: Denies: pain Allergies: Coded Allergies: SULFA (SULFONAMIDE ANTIBIOTICS) (Verified Allergy, Unknown, 11/22/17) Objective Vital Signs Last 24 Hour Vital Signs Date Time Temp Pulse Resp B/P (MAP) Pulse Ox O2 Delivery O2 Flow Rate FiO2 02/03/19 12:00 82 02/03/19 12:00 Nasal Cannula 4.0 02/03/19 12:00 97.7 78 20 123/65 (84) 96 02/03/19 09:12 169/76 02/03/19 09:12 169/76 02/03/19 09:11 88 169/76 02/03/19 08:00 88 02/03/19 08:00 Nasal Cannula 4.0 02/03/19 08:00 97.5 91 20 169/76 (107) 95 02/03/19 07:22 Nasal Cannula 2.0 28 02/03/19 07:22 96 Nasal Cannula 2.0 28 02/03/19 04:00 98.0 78 20 139/59 (85) 96 02/03/19 04:00 Nasal Cannula 4.0 02/03/19 03:50 79 02/03/19 00:00 98.7 73 24 144/71 (95) 95 02/03/19 00:00 Nasal Cannula 4.0 02/02/19 23:32 85 02/02/19 21:13 138/76 02/02/19 20:00 99.1 75 24 138/76 (96) 96 02/02/19 20:00 Nasal Cannula 4.0 02/02/19 20:00 69 02/02/19 19:34 96 Nasal Cannula 2.0 28 02/02/19 19:34 Nasal Cannula 2.0 28 02/02/19 17:46 80 147/74 02/02/19 17:46 147/74 02/02/19 16:00 Nasal Cannula 4.0 02/02/19 16:00 98.0 80 20 147/74 (98) 96 02/02/19 16:00 78 Height (Feet): 5 Height (Inches): 7.00 Weight (Pounds): 220 General Appearance: no acute distress HEENT: normocephalic, atraumatic, anicteric, mucous membranes moist Respiratory/Chest: lungs clear, normal breath sounds, no respiratory distress, no accessory muscle use, other - less rhonchi Cardiovascular: normal rate, regular rhythm, no gallop/murmur, no JVD Abdomen: normal bowel sounds, soft, non tender, no organomegaly, non distended Genitourinary: other - + weber - urine clear Extremities: no cyanosis Skin: no rash Neurologic/Psychiatric: open shank coverer II-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 Findings: Patchy infiltrates noted on the right upper lobe and possibly left lung base as well. Generalized interstitial and vascular prominence demonstrated although this may be slightly improved. IMPRESSION: Persistent right upper lobe infiltrate and probable infiltrate left lung base. This could be due to pneumonia or asymmetric edema. Improved interstitial edema over one day Chest x-ray - 01/18/19 - Comparison: 01/16/2019 A single view chest radiograph was obtained. Findings: Developing pulmonary vascular congestion demonstrated. The heart is enlarged. Vascularity is more prominent. IMPRESSION: Development of CHF Chest x-ray - 01/19/19 - Procedure: XRAY Chest 1v Indication: Cough Comparison: 01/18/2019 A single view chest radiograph was obtained. Findings: Prominent pulmonary vascularity and heart size are demonstrated. Small pleural effusions are not excluded. IMPRESSION: Pulmonary vascular congestion. No significant change CT chest: IMPRESSION: Large area of focal bullous emphysema involving the right lung base accounting for the lucency demonstrated on the recent chest x-ray. Generalized emphysema noted within the lungs especially in the upper lobes. Pulmonary edema. Bilateral pleural effusions larger on the right compared to left. Posterior basilar atelectasis and/or pneumonia. Chest x-ray - 01/24/19 - IMPRESSION: Development of a unusual lucency at the right lung base. Query cavitary lesion, not seen previously. Further evaluation with CT is recommended. Bilateral pleural effusions. Worsening CHF Chest x-ray - 01/28/19 - COMPARISON: Chest x-ray dated 01/27/19 FINDINGS: Limitations: Patient's hand overlies the right lower lung, limiting its evaluation. Lungs: Persistent pulmonary vascular congestion. Subsegmental atelectasis in the left lung base. Pleural space: Persistent small left pleural effusion. Right costophrenic angle is obscured and cannot be evaluated. Heart: Cardiomegaly. Mediastinum: Unremarkable. Bones/joints: Unremarkable. IMPRESSION: 1. Patient's hand overlies the right lower lung, limiting its evaluation. 2. Persistent pulmonary vascular congestion. 3. Persistent small left pleural effusion. Right costophrenic angle is obscured and cannot be evaluated. 4. Cardiomegaly. Chest x-ray - 01/30/19 - IMPRESSION: 1. Hypoventilatory lungs. Bibasilar lung atelectasis/airspace disease. 2. Small to moderate right pleural effusion. Small left pleural effusion. Similar to prior study. 3. Mild vascular congestion slightly improved. Chest x-ray - 01/31/19: Procedure: XRAY Chest 1v Indication: Dyspnea Comparison: 01/30/2019 A single view chest radiograph was obtained. Findings: Pulmonary vascular congestion appears worse. Cardiomegaly is present. Bilateral pleural effusion suspected. IMPRESSION: CHF. Bilateral pleural effusion Microbiology Date/Time Source Procedure Growth Status 01/26/19 15:40 Blood Blood Culture - Final NO GROWTH AFTER 5 DAYS Complete 01/26/19 15:30 Sputum Induced Gram Stain - Final Complete 01/26/19 15:30 Sputum Induced Sputum Culture - Final NORMAL UPPER RESPIRATORY ALTHEA PRESENT Complete 01/26/19 15:30 Urine,Suprapubic Urine Culture - Final Iraida Famata Complete Laboratory Tests Test 02/03/19 03:40 White Blood Count 7.3 K/UL (4.8-10.8) Red Blood Count 4.25 M/UL (4.20-5.40) Hemoglobin 11.5 G/DL (12.0-16.0) L Hematocrit 36.0 % (37.0-47.0) L Mean Corpuscular Volume 85 FL (80-99) Mean Corpuscular Hemoglobin 27.1 PG (27.0-31.0) Mean Corpuscular Hemoglobin Concent 32.1 G/DL (32.0-36.0) Red Cell Distribution Width 16.6 % (11.6-14.8) H Platelet Count 485 K/UL (150-450) H Mean Platelet Volume 7.3 FL (6.5-10.1) Neutrophils (%) (Auto) 62.0 % (45.0-75.0) Lymphocytes (%) (Auto) 28.7 % (20.0-45.0) Monocytes (%) (Auto) 7.5 % (1.0-10.0) Eosinophils (%) (Auto) 1.4 % (0.0-3.0) Basophils (%) (Auto) 0.4 % (0.0-2.0) Sodium Level 141 MMOL/L (136-145) Potassium Level 3.3 MMOL/L (3.5-5.1) L Chloride Level 102 MMOL/L (98-107) Carbon Dioxide Level 33 MMOL/L (21-32) H Anion Gap 6 mmol/L (5-15) Blood Urea Nitrogen 20 mg/dL (7-18) H Creatinine 0.5 MG/DL (0.55-1.30) L Estimat Glomerular Filtration Rate mL/min (>60) Glucose Level 89 MG/DL (74-106) Calcium Level 9.1 MG/DL (8.5-10.1) Pro-B-Type Natriuretic Peptide 200 pg/mL (0-125) H Current Medications Medications (Trade) Dose Ordered Sig/Mj Route PRN Reason Start Time Stop Time Status Last Admin Dose Admin Acetaminophen (Tylenol) 650 mg Q4H PRN ORAL Mild Pain/Temp > 100.5 01/25/19 16:00 02/15/19 15:59 02/03/19 11:04 Amlodipine Besylate (Norvasc) 2.5 mg BID ORAL 01/27/19 18:00 02/26/19 17:59 02/03/19 09:11 Amoxicillin/ Clavulanate Potassium (Augmentin) 875 mg EVERY 12 HOURS ORAL 02/01/19 21:00 02/08/19 20:59 02/03/19 09:12 Atorvastatin Calcium (Lipitor) 10 mg BEDTIME ORAL 01/25/19 21:00 02/15/19 20:59 02/02/19 21:13 Baclofen (Lioresal) 10 mg EVERY 8 HOURS ORAL 01/27/19 06:00 02/15/19 08:59 02/03/19 14:17 Clonidine HCl (Catapres Tab) 0.1 mg BID ORAL 01/27/19 09:00 02/26/19 08:59 02/03/19 09:12 Fluconazole (Diflucan) 100 mg DAILY ORAL 01/28/19 16:00 02/04/19 15:59 02/03/19 09:12 Furosemide (Lasix) 40 mg EVERY 12 HOURS ORAL 02/02/19 21:00 03/04/19 20:59 02/03/19 09:12 Guaifenesin/ Codeine Phosphate (Robitussin with codeine) 5 ml Q6H PRN ORAL For Cough 01/25/19 21:00 02/16/19 20:59 01/26/19 00:22 Hydralazine HCl (Apresoline) 10 mg Q6H PRN IV SBP >170 01/25/19 16:30 02/20/19 16:29 Lisinopril (Prinivil) 20 mg Q12HR ORAL 01/25/19 21:00 02/20/19 12:59 02/03/19 09:12 Metformin HCl (Glucophage) 500 mg TWICE A DAY ORAL 01/25/19 18:00 02/15/19 08:59 02/03/19 09:11 Pantoprazole (Protonix) 40 mg DAILY ORAL 01/26/19 09:00 02/15/19 08:59 02/03/19 09:10 Patient Own Medication (Patient's Own Med) 1 ea QOD SUBQ 01/26/19 09:00 02/17/19 08:59 02/03/19 09:13 Polyethylene Glycol (Miralax) 17 gm DAILY ORAL 01/26/19 09:00 02/21/19 08:59 01/28/19 09:45 Potassium Chloride (K-Dur) 40 meq TWICE A DAY ORAL 02/03/19 18:00 03/04/19 08:59 Prednisone (predniSONE) 20 mg DAILY ORAL 02/01/19 09:00 03/03/19 08:59 02/03/19 09:11 Tizanidine HCl (Zanaflex) 4 mg THREE TIMES A DAY ORAL 01/25/19 18:00 02/15/19 08:59 02/03/19 14:17 Trazodone HCl (Desyrel) 100 mg BEDTIME PRN ORAL insomnia 01/25/19 21:00 02/19/19 02:34 02/02/19 22:02 Carroll Miller MD February 03, 2019 15:18
[2019-02-03 16:00] VITALS: BP 134/60
--- NOTE | 2019-02-03 18:00 | NUR ---
NURSE NOTES: Patient's prescription medications delivered at bedside by [facility]. Placed in patient's belongings at bedside drawer. Awaiting discharge.
--- NOTE | 2019-02-03 19:11 | NUR ---
HAND-OFF: Report given to SHEMAR Landa.
--- NOTE | 2019-02-03 19:14 | NUR ---
NURSE NOTES: Received patient from SHEMAR Stafford. Will continue plan of care.
--- NOTE | 2019-02-03 19:26 | Cardiology Progress Note ---
Assessment/Plan Assessment/Plan 1. Hypotension, probably multifactorial, possibly volume related versus medication related (resolved) 2. Pneumonia. 3. Multiple sclerosis. 4. Diabetes mellitus. 5. Chronic suprapubic catheter. 6. Decubitus ulcers 7. MS (multiple sclerosis) 8. edema 9. Labiel htn blood cx neg sofar still urine cx positive off ivf on acie echo report noted nomral lv fxn tele personally rev. sinus iv Lasix while inpt out pt may need 60-80 mg bid dc plan with dr weaver Subjective Cardiovascular: Denies: chest pain, lightheadedness, palpitations Respiratory: Denies: shortness of breath Gastrointestinal/Abdominal: Denies: abdominal pain Genitourinary: Denies: burning Objective Last 24 Hour Vital Signs Date Time Temp Pulse Resp B/P (MAP) Pulse Ox O2 Delivery O2 Flow Rate FiO2 02/03/19 17:35 80 134/60 02/03/19 17:35 134/60 02/03/19 16:00 Nasal Cannula 4.0 02/03/19 16:00 80 02/03/19 16:00 97.5 71 20 134/60 (84) 95 02/03/19 12:00 82 02/03/19 12:00 Nasal Cannula 4.0 02/03/19 12:00 97.7 78 20 123/65 (84) 96 02/03/19 09:12 169/76 02/03/19 09:12 169/76 02/03/19 09:11 88 169/76 02/03/19 08:00 88 02/03/19 08:00 Nasal Cannula 4.0 02/03/19 08:00 97.5 91 20 169/76 (107) 95 02/03/19 07:22 Nasal Cannula 2.0 28 02/03/19 07:22 96 Nasal Cannula 2.0 28 02/03/19 04:00 98.0 78 20 139/59 (85) 96 02/03/19 04:00 Nasal Cannula 4.0 02/03/19 03:50 79 02/03/19 00:00 98.7 73 24 144/71 (95) 95 02/03/19 00:00 Nasal Cannula 4.0 02/02/19 23:32 85 02/02/19 21:13 138/76 02/02/19 20:00 99.1 75 24 138/76 (96) 96 02/02/19 20:00 Nasal Cannula 4.0 02/02/19 20:00 69 02/02/19 19:34 96 Nasal Cannula 2.0 28 02/02/19 19:34 Nasal Cannula 2.0 28 General Appearance: no apparent distress, alert Neck: supple Cardiovascular: normal rate Respiratory/Chest: lungs clear - ant Abdomen: normal bowel sounds, non tender, soft Extremities: trace edema Intake and Output 02/02/19 02/03/19 19:00 07:00 Intake Total 400 ml 240 ml Output Total 800 ml Balance 400 ml -560 ml Intake Oral 400 ml 240 ml Output Urine Total 800 ml # Bowel Movements 3 3 Laboratory Tests Test 02/03/19 03:40 White Blood Count 7.3 K/UL (4.8-10.8) Red Blood Count 4.25 M/UL (4.20-5.40) Hemoglobin 11.5 G/DL (12.0-16.0) L Hematocrit 36.0 % (37.0-47.0) L Mean Corpuscular Volume 85 FL (80-99) Mean Corpuscular Hemoglobin 27.1 PG (27.0-31.0) Mean Corpuscular Hemoglobin Concent 32.1 G/DL (32.0-36.0) Red Cell Distribution Width 16.6 % (11.6-14.8) H Platelet Count 485 K/UL (150-450) H Mean Platelet Volume 7.3 FL (6.5-10.1) Neutrophils (%) (Auto) 62.0 % (45.0-75.0) Lymphocytes (%) (Auto) 28.7 % (20.0-45.0) Monocytes (%) (Auto) 7.5 % (1.0-10.0) Eosinophils (%) (Auto) 1.4 % (0.0-3.0) Basophils (%) (Auto) 0.4 % (0.0-2.0) Sodium Level 141 MMOL/L (136-145) Potassium Level 3.3 MMOL/L (3.5-5.1) L Chloride Level 102 MMOL/L (98-107) Carbon Dioxide Level 33 MMOL/L (21-32) H Anion Gap 6 mmol/L (5-15) Blood Urea Nitrogen 20 mg/dL (7-18) H Creatinine 0.5 MG/DL (0.55-1.30) L Estimat Glomerular Filtration Rate mL/min (>60) Glucose Level 89 MG/DL (74-106) Calcium Level 9.1 MG/DL (8.5-10.1) Pro-B-Type Natriuretic Peptide 200 pg/mL (0-125) H Krishna Perry MD February 03, 2019 19:26
[2019-02-03 20:00] VITALS: BP 154/76
[2019-02-03] MEDS: TraZODone 100mg tab ORAL PRN (21:34)
[2019-02-04] VITALS: BP 126/76
[2019-02-04 04:00] VITALS: BP 137/70
--- NOTE | 2019-02-04 07:15 | NUR ---
HAND-OFF: Report given to SHEMAR Colvin.
--- NOTE | 2019-02-04 07:16 | NUR ---
NURSE NOTES: Received patient in bed. In no apparent distress. On nasal cannula at 4LPM. Contact isolation observed. Will continue plan of care.
[2019-02-04 08:00] VITALS: BP 140/76
[2019-02-04] MEDS: Augmentin 875mg Tab ORAL SCH ×2 (09:33→21:51)
[2019-02-04] MEDS: Furosemide 40mg tab ORAL SCH ×2 (09:33→21:51)
[2019-02-04] MEDS: Fluconazole 100mg tab ORAL SCH (09:33)
[2019-02-04] MEDS: metFORMIN 500mg tab ORAL SCH ×2 (09:34→17:45)
[2019-02-04] MEDS: Miralax 17gm pkt ORAL SCH (09:35)
[2019-02-04] MEDS: Lisinopril 20mg tab ORAL SCH ×2 (09:35→21:52)
--- NOTE | 2019-02-04 12:58 | Pulmonology Progress Note ---
Assessment/Plan Assessment/Plan 1. Pneumonia 2. UTI with chronic suprapubic catheter, e coli 3. Multiple sclerosis. 4. Sinus tachycardia 5. Diabetes. 6. Hyponatremia. 7. Neurogenic bladder. 8. Hypertension. 9. Hyperlipidemia. 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 effusions, atelectasis awaiting o2 for homw dc bipap qhs and prn distress titrate o2 cxr prn nebs disc w RN and family at the bedside Subjective Constitutional: Reports: no symptoms HEENT: Repors: no symptoms Respiratory: Reports: no symptoms Genitourinary: Reports: no symptoms Allergies: Coded Allergies: SULFA (SULFONAMIDE ANTIBIOTICS) (Verified Allergy, Unknown, 11/22/17) Subjective feeling better using bipap the best she can at night on o2 no cp nv or bleeding nto getting oob no nv tolerating po awaiting o2 for dc home Objective Last 24 Hour Vital Signs Date Time Temp Pulse Resp B/P (MAP) Pulse Ox O2 Delivery O2 Flow Rate FiO2 02/04/19 09:35 140/76 02/04/19 09:34 72 140/76 02/04/19 09:33 140/76 02/04/19 08:55 Nasal Cannula 2.0 28 02/04/19 08:55 94 Nasal Cannula 2.0 28 02/04/19 08:00 98.1 72 20 140/76 (97) 96 02/04/19 08:00 Nasal Cannula 4.0 02/04/19 07:57 70 02/04/19 04:00 Nasal Cannula 4.0 02/04/19 04:00 97.2 78 18 137/70 (92) 95 02/04/19 03:58 69 02/04/19 00:00 98.1 70 20 126/76 (93) 95 02/04/19 00:00 Nasal Cannula 4.0 02/03/19 23:36 71 02/03/19 21:30 154/76 02/03/19 20:00 97.7 80 20 154/76 (102) 94 02/03/19 20:00 93 Nasal Cannula 2.0 28 02/03/19 20:00 Nasal Cannula 4.0 02/03/19 20:00 Nasal Cannula 2.0 28 02/03/19 19:57 75 02/03/19 17:35 80 134/60 02/03/19 17:35 134/60 02/03/19 16:00 Nasal Cannula 4.0 02/03/19 16:00 80 02/03/19 16:00 97.5 71 20 134/60 (84) 95 Intake and Output 02/03/19 02/04/19 19:00 07:00 Intake Total 600 ml 400 ml Output Total 700 ml 1500 ml Balance -100 ml -1100 ml Intake Oral 600 ml 400 ml Output Urine Total 700 ml 1500 ml # Bowel Movements 4 General Appearance: WD/WN Respiratory/Chest: lungs clear, normal breath sounds Cardiovascular: normal rate, regular rhythm, murmur systolic Abdomen: soft, non tender, non distended Extremities: no cyanosis Neurologic/Psychiatric: news editor II-XII grossly normal, oriented x 3 Lymphatic: no neck adenopathy Current Medications Medications (Trade) Dose Ordered Sig/Mj Route PRN Reason Start Time Stop Time Status Last Admin Dose Admin Acetaminophen (Tylenol) 650 mg Q4H PRN ORAL Mild Pain/Temp > 100.5 01/25/19 16:00 02/15/19 15:59 02/03/19 11:04 Amlodipine Besylate (Norvasc) 2.5 mg BID ORAL 01/27/19 18:00 02/26/19 17:59 02/04/19 09:34 Amoxicillin/ Clavulanate Potassium (Augmentin) 875 mg EVERY 12 HOURS ORAL 02/01/19 21:00 02/08/19 20:59 02/04/19 09:33 Atorvastatin Calcium (Lipitor) 10 mg BEDTIME ORAL 01/25/19 21:00 02/15/19 20:59 02/03/19 21:30 Baclofen (Lioresal) 10 mg EVERY 8 HOURS ORAL 01/27/19 06:00 02/15/19 08:59 02/04/19 06:04 Clonidine HCl (Catapres Tab) 0.1 mg BID ORAL 01/27/19 09:00 02/26/19 08:59 02/04/19 09:33 Fluconazole (Diflucan) 100 mg DAILY ORAL 01/28/19 16:00 02/04/19 15:59 02/04/19 09:33 Furosemide (Lasix) 40 mg EVERY 12 HOURS ORAL 02/02/19 21:00 03/04/19 20:59 02/04/19 09:33 Guaifenesin/ Codeine Phosphate (Robitussin with codeine) 5 ml Q6H PRN ORAL For Cough 01/25/19 21:00 02/16/19 20:59 01/26/19 00:22 Hydralazine HCl (Apresoline) 10 mg Q6H PRN IV SBP >170 01/25/19 16:30 02/20/19 16:29 Lisinopril (Prinivil) 20 mg Q12HR ORAL 01/25/19 21:00 02/20/19 12:59 02/04/19 09:35 Metformin HCl (Glucophage) 500 mg TWICE A DAY ORAL 01/25/19 18:00 02/15/19 08:59 02/04/19 09:34 Pantoprazole (Protonix) 40 mg DAILY ORAL 01/26/19 09:00 02/15/19 08:59 02/04/19 09:33 Patient Own Medication (Patient's Own Med) 1 ea QOD SUBQ 01/26/19 09:00 02/17/19 08:59 02/03/19 09:13 Polyethylene Glycol (Miralax) 17 gm DAILY ORAL 01/26/19 09:00 02/21/19 08:59 01/28/19 09:45 Potassium Chloride (K-Dur) 40 meq TWICE A DAY ORAL 02/03/19 18:00 03/04/19 08:59 02/04/19 09:33 Prednisone (predniSONE) 20 mg DAILY ORAL 02/01/19 09:00 03/03/19 08:59 02/04/19 09:35 Tizanidine HCl (Zanaflex) 4 mg THREE TIMES A DAY ORAL 01/25/19 18:00 02/15/19 08:59 02/04/19 09:34 Trazodone HCl (Desyrel) 100 mg BEDTIME PRN ORAL insomnia 01/25/19 21:00 02/19/19 02:34 02/03/19 21:34 Current Medications Medications (Trade) Dose Ordered Sig/Mj Route PRN Reason Start Time Stop Time Status Last Admin Dose Admin Acetaminophen (Tylenol) 650 mg Q4H PRN ORAL Mild Pain/Temp > 100.5 01/25/19 16:00 02/15/19 15:59 02/03/19 11:04 Amlodipine Besylate (Norvasc) 2.5 mg BID ORAL 01/27/19 18:00 02/26/19 17:59 02/04/19 09:34 Amoxicillin/ Clavulanate Potassium (Augmentin) 875 mg EVERY 12 HOURS ORAL 02/01/19 21:00 02/08/19 20:59 02/04/19 09:33 Atorvastatin Calcium (Lipitor) 10 mg BEDTIME ORAL 01/25/19 21:00 02/15/19 20:59 02/03/19 21:30 Baclofen (Lioresal) 10 mg EVERY 8 HOURS ORAL 01/27/19 06:00 02/15/19 08:59 02/04/19 06:04 Clonidine HCl (Catapres Tab) 0.1 mg BID ORAL 01/27/19 09:00 02/26/19 08:59 02/04/19 09:33 Fluconazole (Diflucan) 100 mg DAILY ORAL 01/28/19 16:00 02/04/19 15:59 02/04/19 09:33 Furosemide (Lasix) 40 mg EVERY 12 HOURS ORAL 02/02/19 21:00 03/04/19 20:59 02/04/19 09:33 Guaifenesin/ Codeine Phosphate (Robitussin with codeine) 5 ml Q6H PRN ORAL For Cough 01/25/19 21:00 02/16/19 20:59 01/26/19 00:22 Hydralazine HCl (Apresoline) 10 mg Q6H PRN IV SBP >170 01/25/19 16:30 02/20/19 16:29 Lisinopril (Prinivil) 20 mg Q12HR ORAL 01/25/19 21:00 02/20/19 12:59 02/04/19 09:35 Metformin HCl (Glucophage) 500 mg TWICE A DAY ORAL 01/25/19 18:00 02/15/19 08:59 02/04/19 09:34 Pantoprazole (Protonix) 40 mg DAILY ORAL 01/26/19 09:00 02/15/19 08:59 02/04/19 09:33 Patient Own Medication (Patient's Own Med) 1 ea QOD SUBQ 01/26/19 09:00 02/17/19 08:59 02/03/19 09:13 Polyethylene Glycol (Miralax) 17 gm DAILY ORAL 01/26/19 09:00 02/21/19 08:59 01/28/19 09:45 Potassium Chloride (K-Dur) 40 meq TWICE A DAY ORAL 02/03/19 18:00 03/04/19 08:59 02/04/19 09:33 Prednisone (predniSONE) 20 mg DAILY ORAL 02/01/19 09:00 03/03/19 08:59 02/04/19 09:35 Tizanidine HCl (Zanaflex) 4 mg THREE TIMES A DAY ORAL 01/25/19 18:00 02/15/19 08:59 02/04/19 09:34 Trazodone HCl (Desyrel) 100 mg BEDTIME PRN ORAL insomnia 01/25/19 21:00 02/19/19 02:34 02/03/19 21:34 Kenyetta Dill DO Feb 04, 2019 12:58
--- NOTE | 2019-02-04 13:59 | Surgery Progress Note ---
Surgery Progress Note Objective Last 24 Hour Vital Signs Date Time Temp Pulse Resp B/P (MAP) Pulse Ox O2 Delivery O2 Flow Rate FiO2 02/04/19 09:35 140/76 02/04/19 09:34 72 140/76 02/04/19 09:33 140/76 02/04/19 08:55 Nasal Cannula 2.0 28 02/04/19 08:55 94 Nasal Cannula 2.0 28 02/04/19 08:00 98.1 72 20 140/76 (97) 96 02/04/19 08:00 Nasal Cannula 4.0 02/04/19 07:57 70 02/04/19 04:00 Nasal Cannula 4.0 02/04/19 04:00 97.2 78 18 137/70 (92) 95 02/04/19 03:58 69 02/04/19 00:00 98.1 70 20 126/76 (93) 95 02/04/19 00:00 Nasal Cannula 4.0 02/03/19 23:36 71 02/03/19 21:30 154/76 02/03/19 20:00 97.7 80 20 154/76 (102) 94 02/03/19 20:00 93 Nasal Cannula 2.0 28 02/03/19 20:00 Nasal Cannula 4.0 02/03/19 20:00 Nasal Cannula 2.0 28 02/03/19 19:57 75 02/03/19 17:35 80 134/60 02/03/19 17:35 134/60 02/03/19 16:00 Nasal Cannula 4.0 02/03/19 16:00 80 02/03/19 16:00 97.5 71 20 134/60 (84) 95 I&O Intake and Output 02/03/19 02/04/19 19:00 07:00 Intake Total 600 ml 400 ml Output Total 700 ml 1500 ml Balance -100 ml -1100 ml Intake Oral 600 ml 400 ml Output Urine Total 700 ml 1500 ml # Bowel Movements 4 Plan Problems: (1) Decubital ulcer Assessment & Plan: Pt presented on admission with multiple ,Pressure injuries, MASD bilateral breasts folds, abd folds, bilateral groin and medial aspects of both thighs. Erythema with denuded skin noted to affected areas. Moisture intertrigo noted to R groin. Scattered Nevi noted to back and medial aspects of both upper thighs.Pt also noted to have numerous skin tags medial upper thighs. Resolving pressure injury noted to sacral area.Base of wound with pink epithelial with surrounding hyperpigmentation .Small wound noted at sacrococcygeal area(L)1.0cm x (W)0.9cm. Base of wound is moist and viable. Hyperpigmentation from previous pressure injury noted in crevices of skin R ischium. Caregiver at bedside and stated pt has Hx of Recurrent pressure injuries to sacrum and R ischium.Hyperpigmentation noted to L ischium. L heel boggy with non-blanchable erythema non-tender when palpated. Non-blanchable erythema with fluctuance at base medial aspect of R heel. (L) 1.5cm x (W)2.3cm Edemae and Foot drop noted to both feet. Eschar with surrounding erythema noted to R 1st metatarsal head. Small amt purulent exudate noted when wound minimally palpated. Small partial thickness ulcers without exudate noted to dorsum of R 2nd,3rd,4th and 5th metatarsals.Wounds are erythematous at base .Periwound metatarsals are pale and shiny. Tx.Plan: Wash skin folds of both breasts and abd folds with soap and water. Apply Light dusting of Antifungal powder every shift. Apply Triad Paste to buttocks both ischial areas, bilat groin and medial / posterior aspects of both upper thighs with each incontinence care. Apply Triad Paste to sacrum.Cover with Optifoam drsg. Change every 3 days and prn. Swab R 1st metatarsal head with Betadine. Cover with Optifoam drsg Daily and prn. Apply Cavilon to both heels .Cover each heel with Optifoam drsg.Change every 7 days and prn. Apply Betadine to dorsals of 2nd,3rd,4th and 5th metatarsals. Bariatric bed with Air fluidized mattress. Reposition at least every 2hours or as tolerated. Off-load heels with pillow. cont current regimen upon discharge (2) Multiple sclerosis (3) Obstipation Assessment & Plan: abdomen distended KUB noted and okay exam without tenderness cont with diet which she is tolerating. will follow with exam (4) Urinary tract infection (5) Hypoxemia (6) Tachycardia (7) Pneumonia Assessment & Plan: Large area of focal bullous emphysema involving the right lung base accounting for the lucency demonstrated on the recent chest x-ray. Generalized emphysema noted within the lungs especially in the upper lobes. Pulmonary edema. Bilateral pleural effusions larger on the right compared to left. Posterior basilar atelectasis and/or pneumonia. (8) Obesities, morbid Assessment & Plan: DAILY ESTIMATED NEEDS: Needs based on Pulmonary, obese 78kg adj 20-25 kcals/kg [id number] total kcals 1-1.5 g protein/kg 78-117 g total protein Fluid per MD, on lasix NUTRITION DIAGNOSIS: 1) Decreased sodium and fat intake needs R/T cardiac hx, PNA as evidenced by on diuretics, HTN, BMI >40, pt is @191% [place] Body Weight. 2) Self feeding difficulty r/t MS as evidenced by pt w/ BL UE contractures, requires 1:1 feedings. PO DIET RECOMMENDATIONS: Cardiac, CCHO MED (texture per ANATOMY AND PHYSIOLOGY INSTRUCTOR) ---- ADDITIONAL RECOMMENDATIONS: 1) ANATOMY AND PHYSIOLOGY INSTRUCTOR eval for appropriate texture (h/o MS w/ contractures, need for 1:1) 2) Wound Care: photos noted, pending MD eval 3) A1C for eval (need for diet change to ccho low w/ 2x prot) 4) Check lytes daily on lasix, replete as needed (Mg 1.6) (9) Encounter for generalized patient complaints John Toledo Feb 04, 2019 13:59
[2019-02-04] MEDS ORDERED: NS 275ml ONE (14:56)
[2019-02-04 16:00] VITALS: BP 126/60
--- NOTE | 2019-02-04 16:42 | NUR ---
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 EDEMA T 98.1 HR 70 RR 20 B/P 126/76 SATS 95% ON 4L/NC NO LABS TODAY IS:LISINOPRIL 20mg CLONIDINE HCI 0.1mg AMOXICILLIN 875mg METFORMIN 500mg ZANAFLEX 4mg NORVASC 2.5mg K-DUR 20meq SDU STATUS
--- NOTE | 2019-02-04 17:47 | Cardiology Progress Note ---
Assessment/Plan Assessment/Plan continue treatment for CHF, supportive therapy, monitor lytes daily, will check magnesium Subjective Subjective the patient is breathing better, she wants to go home, but O2 delivery is delayed Objective Last 24 Hour Vital Signs Date Time Temp Pulse Resp B/P (MAP) Pulse Ox O2 Delivery O2 Flow Rate FiO2 02/04/19 16:00 97.5 76 24 126/60 (82) 96 02/04/19 16:00 Nasal Cannula 4.0 02/04/19 15:33 79 02/04/19 12:00 Nasal Cannula 4.0 02/04/19 11:24 71 02/04/19 09:35 140/76 02/04/19 09:34 72 140/76 02/04/19 09:33 140/76 02/04/19 08:55 Nasal Cannula 2.0 28 02/04/19 08:55 94 Nasal Cannula 2.0 28 02/04/19 08:00 98.1 72 20 140/76 (97) 96 02/04/19 08:00 Nasal Cannula 4.0 02/04/19 07:57 70 02/04/19 04:00 Nasal Cannula 4.0 02/04/19 04:00 97.2 78 18 137/70 (92) 95 02/04/19 03:58 69 02/04/19 00:00 98.1 70 20 126/76 (93) 95 02/04/19 00:00 Nasal Cannula 4.0 02/03/19 23:36 71 02/03/19 21:30 154/76 02/03/19 20:00 97.7 80 20 154/76 (102) 94 02/03/19 20:00 93 Nasal Cannula 2.0 28 02/03/19 20:00 Nasal Cannula 4.0 02/03/19 20:00 Nasal Cannula 2.0 28 02/03/19 19:57 75 General Appearance: mild distress EENT: other - left eye closed due to neurologic disease Neck: JVD Cardiovascular: normal rate Respiratory/Chest: crackles/rales - only at bases Abdomen: soft Extremities: other Intake and Output 02/03/19 02/04/19 19:00 07:00 Intake Total 600 ml 400 ml Output Total 700 ml 1500 ml Balance -100 ml -1100 ml Intake Oral 600 ml 400 ml Output Urine Total 700 ml 1500 ml # Bowel Movements 4 Angela Gage MD Feb 04, 2019 17:47
--- NOTE | 2019-02-04 19:19 | NUR ---
HAND-OFF: Report given to Syeda Red RN.
--- NOTE | 2019-02-04 19:20 | NUR ---
NURSE NOTES: Received patient from SHEMAR Colvin. Patient is stable, visitors are at bedside. Will continue plan of care.
--- NOTE | 2019-02-04 19:51 | NUR ---
NURSE NOTES: Received patient's home medication of the 0.3mg Betaseron inj for administration of 02/05/19 @ 0900. Walked medication down to the pharmacy and handed it to Charo. She informed me that the medication will be sent back to the floor in the AM. Will follow up in the morning.
[2019-02-04 20:00] VITALS: BP 128/67
[2019-02-04] MEDS: TraZODone 100mg tab ORAL PRN (21:51)
[2019-02-05] VITALS: BP 112/76
[2019-02-05 04:00] VITALS: BP 128/69
[2019-02-05 06:09] LABS: BASOPHILS % (AUTO) 1.1 % (0.0-2.0); EOSINOPHILS % (AUTO) 0.9 % (0.0-3.0); HEMATOCRIT 36.1 % (37.0-47.0); HEMOGLOBIN 11.6 G/DL (12.0-16.0); LYMPHOCYTES % (AUTO) 30.9 % (20.0-45.0); MEAN CORPUSCULAR VOLUME 85 FL (80-99); MONOCYTES % (AUTO) 8.7 % (1.0-10.0); NEUTROPHILS % (AUTO) 58.4 % (45.0-75.0); PLATELET COUNT 397 K/UL (150-450); RED BLOOD COUNT 4.26 M/UL (4.20-5.40); RED CELL DISTRIBUTION WIDTH 16.5 % (11.6-14.8); WHITE BLOOD COUNT 6.2 K/UL (4.8-10.8)
[2019-02-05 06:37] LABS: ANION GAP 8 mmol/L (5-15); BLOOD UREA NITROGEN 18 mg/dL (7-18); CARBON DIOXIDE 30 MMOL/L (21-32); CHLORIDE 103 MMOL/L (98-107); CREATININE 0.6 MG/DL (0.55-1.30); POTASSIUM 4.8 MMOL/L (3.5-5.1); SODIUM 141 MMOL/L (136-145)
--- NOTE | 2019-02-05 07:25 | NUR ---
HAND-OFF: Report given to SHEMAR Adams.
--- NOTE | 2019-02-05 07:26 | NUR ---
NURSE NOTES: Received report from SHEMAR Landa. Patient observed in bed, asleep, arousable to verbal stimuli. Patient on O2 2L via NC, SpO2 94%; no acute respiratory distress noted. Left wrist IV 22g intact and patent; right hand IV 22g intact and patent. Suprapubic catheter intact and draining well by gravity. No s/s of pain/discomfort at this time. Bed locked, alarmed, and in lowest position; side rails up, and call light left within reach. Will continue to monitor.
[2019-02-05 08:00] VITALS: BP 158/75
[2019-02-05] MEDS: Lisinopril 20mg tab ORAL SCH ×2 (08:42→21:56)
[2019-02-05] MEDS: Augmentin 875mg Tab ORAL SCH (08:42)
[2019-02-05] MEDS: metFORMIN 500mg tab ORAL SCH ×2 (08:43→17:26)
[2019-02-05] MEDS: Furosemide 40mg tab ORAL SCH ×2 (08:44→21:56)
[2019-02-05] MEDS: Miralax 17gm pkt ORAL SCH (08:45)
--- NOTE | 2019-02-05 08:53 | Pulmonology Progress Note ---
Assessment/Plan Assessment/Plan 1. Pneumonia 2. UTI with chronic suprapubic catheter, e coli 3. Multiple sclerosis. 4. Sinus tachycardia 5. Diabetes. 6. Hyponatremia. 7. Neurogenic bladder. 8. Hypertension. 9. Hyperlipidemia. 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 effusions, atelectasis 12. leaking spc awaiting o2 for jacquelyn may need urology eval in am to assess spc refusing bipap nebs reordered with cpt cxr in am titrate o2 disc w RN and no family at the bedside Subjective Constitutional: Reports: no symptoms HEENT: Repors: no symptoms Respiratory: Reports: productive cough, shortness of breath Cardiovascular: Reports: no symptoms Gastrointestinal/Abdominal: Reports: no symptoms Genitourinary: Reports: other - leaking from spc Neurologic: Reports: no symptoms Allergies: Coded Allergies: SULFA (SULFONAMIDE ANTIBIOTICS) (Verified Allergy, Unknown, 11/22/17) Subjective feeling better not using bipap nebs not being given noted iwth leakage from spc on o2 sats lower today with cough difficulty wtih secretions no cp nv or bleeding nto getting oob tolerating po awaiting o2 for dc home Objective Last 24 Hour Vital Signs Date Time Temp Pulse Resp B/P (MAP) Pulse Ox O2 Delivery O2 Flow Rate FiO2 02/05/19 08:44 76 158/75 02/05/19 08:42 158/75 02/05/19 08:42 158/75 02/05/19 08:00 97.7 76 18 158/75 (102) 100 02/05/19 04:48 60 20 96 Nasal Cannula 4.0 36 02/05/19 04:00 97.0 70 18 128/69 (88) 100 02/05/19 04:00 Nasal Cannula 4.0 02/05/19 04:00 61 02/05/19 00:00 97.8 62 18 112/76 (88) 95 02/05/19 00:00 Nasal Cannula 4.0 02/04/19 23:47 62 02/04/19 21:52 128/67 02/04/19 20:00 98.2 70 20 128/67 (87) 95 02/04/19 20:00 Nasal Cannula 4.0 02/04/19 19:23 71 02/04/19 19:23 Nasal Cannula 2.0 28 02/04/19 19:22 96 Nasal Cannula 2.0 28 02/04/19 17:45 76 126/60 02/04/19 17:45 126/60 02/04/19 16:00 97.5 76 24 126/60 (82) 96 02/04/19 16:00 Nasal Cannula 4.0 02/04/19 15:33 79 02/04/19 12:00 Nasal Cannula 4.0 02/04/19 11:24 71 02/04/19 09:35 140/76 02/04/19 09:34 72 140/76 02/04/19 09:33 140/76 02/04/19 08:55 Nasal Cannula 2.0 28 02/04/19 08:55 94 Nasal Cannula 2.0 28 Intake and Output 02/04/19 02/05/19 18:59 06:59 Intake Total 600 ml Output Total 800 ml 800 ml Balance -200 ml -800 ml Intake Oral 600 ml Output Urine Total 800 ml 800 ml # Bowel Movements 2 2 General Appearance: WD/WN Respiratory/Chest: rhonchi Cardiovascular: normal rate, regular rhythm Abdomen: soft, non tender, no organomegaly Extremities: no cyanosis Neurologic/Psychiatric: oriented x 3 Lymphatic: no neck adenopathy Laboratory Tests 02/05/19 04:00: White Blood Count 6.2, Red Blood Count 4.26, Hemoglobin 11.6L, Hematocrit 36.1L , Mean Corpuscular Volume 85, Mean Corpuscular Hemoglobin 27.2, Mean Corpuscular Hemoglobin Concent 32.1, Red Cell Distribution Width 16.5H, Platelet Count 397, Mean Platelet Volume 7.0, Neutrophils (%) (Auto) 58.4, Lymphocytes (%) (Auto) 30.9, Monocytes (%) (Auto) 8.7, Eosinophils (%) (Auto) 0.9, Basophils (%) (Auto) 1.1, Sodium Level 141, Potassium Level 4.8, Chloride Level 103, Carbon Dioxide Level 30, Anion Gap 8, Blood Urea Nitrogen 18, Creatinine 0.6, Estimat Glomerular Filtration Rate , Glucose Level 85, Calcium Level 9.0 Current Medications Medications (Trade) Dose Ordered Sig/Mj Route PRN Reason Start Time Stop Time Status Last Admin Dose Admin Acetaminophen (Tylenol) 650 mg Q4H PRN ORAL Mild Pain/Temp > 100.5 01/25/19 16:00 02/15/19 15:59 02/05/19 06:00 Amlodipine Besylate (Norvasc) 2.5 mg BID ORAL 01/27/19 18:00 02/26/19 17:59 02/05/19 08:44 Amoxicillin/ Clavulanate Potassium (Augmentin) 875 mg EVERY 12 HOURS ORAL 02/01/19 21:00 02/08/19 20:59 02/05/19 08:42 Atorvastatin Calcium (Lipitor) 10 mg BEDTIME ORAL 01/25/19 21:00 02/15/19 20:59 02/04/19 21:52 Baclofen (Lioresal) 10 mg EVERY 8 HOURS ORAL 01/27/19 06:00 02/15/19 08:59 02/05/19 05:59 Clonidine HCl (Catapres Tab) 0.1 mg BID ORAL 01/27/19 09:00 02/26/19 08:59 02/05/19 08:42 Furosemide (Lasix) 40 mg EVERY 12 HOURS ORAL 02/02/19 21:00 03/04/19 20:59 02/05/19 08:44 Guaifenesin/ Codeine Phosphate (Robitussin with codeine) 5 ml Q6H PRN ORAL For Cough 01/25/19 21:00 02/16/19 20:59 01/26/19 00:22 Hydralazine HCl (Apresoline) 10 mg Q6H PRN IV SBP >170 01/25/19 16:30 02/20/19 16:29 Lisinopril (Prinivil) 20 mg Q12HR ORAL 01/25/19 21:00 02/20/19 12:59 02/05/19 08:42 Metformin HCl (Glucophage) 500 mg TWICE A DAY ORAL 01/25/19 18:00 02/15/19 08:59 02/05/19 08:43 Pantoprazole (Protonix) 40 mg DAILY ORAL 01/26/19 09:00 02/15/19 08:59 02/05/19 08:44 Patient Own Medication (Patient's Own Med) 1 ea QOD SUBQ 01/26/19 09:00 02/17/19 08:59 02/03/19 09:13 Polyethylene Glycol (Miralax) 17 gm DAILY ORAL 01/26/19 09:00 02/21/19 08:59 01/28/19 09:45 Potassium Chloride (K-Dur) 40 meq TWICE A DAY ORAL 02/03/19 18:00 03/04/19 08:59 02/05/19 08:43 Prednisone (predniSONE) 20 mg DAILY ORAL 02/01/19 09:00 03/03/19 08:59 02/05/19 08:42 Tizanidine HCl (Zanaflex) 4 mg THREE TIMES A DAY ORAL 01/25/19 18:00 02/15/19 08:59 02/05/19 08:44 Trazodone HCl (Desyrel) 100 mg BEDTIME PRN ORAL insomnia 01/25/19 21:00 02/19/19 02:34 02/04/19 21:51 Kenyetta Dill DO Feb 05, 2019 08:53
--- NOTE | 2019-02-05 09:00 | NUR ---
NURSE NOTES: Dr Dill at bedside, new orders noted and carried out. Informed and made aware of patient's suprapubic catheter leaking. No further orders made. Will continue to monitor.
[2019-02-05] MEDS: BETASERON 0.3 MG SUBQ SCH (09:11)
[2019-02-05] MEDS: Albuterol/Ipratropium 3ml neb HHN SCH ×4 (11:18→23:00)
[2019-02-05 12:00] VITALS: BP 126/60
--- NOTE | 2019-02-05 12:57 | NUR ---
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 CHF VS: BP 116/59, P 79, T 97.5, RR 24, SpO2 95 on 2.0L NC H&H 11.6/36.1, IS:LIPITOR 10mg AMOXICILLIN 875mg K-DUR 40meq ZANAFLEX 4mg METFORMIN 500mg SDU STATUS
--- NOTE | 2019-02-05 15:03 | Infectious Diseases Prog Note ---
Assessment/Plan Assessment/Plan ASSESSMENT AND PLAN: 1. e.coli uti/pyelonephritis, pneumonia vs chf, atx, fevers, sputum culture - normal althea, CT chest noted recurrent fevers and sob, ? nosocomial infection, ? HCAP, PVC on chest x-ray , sc-nf, fungal uti - finish augmentin and diflucan - diuresis - fevers better - monitor labs and chest x-ray 2. Multiple sclerosis. 3. elevated bp - in icu and on tx 4. Suprapubic catheter that is chronic, neurogenic bladder 5. Morbid obesity. 6. Quadriplegia. 7. Hypertension. 8. Hyperlipidemia. 9. Diabetes type 2. 10. Colonic polyps. 11. Anemia. 12. History of colonoscopy. 13. Social history is negative for smoking, alcohol, or drug abuse. 14. Family history is noncontributory. 15. Allergies to sulfa drugs. 16. MAR was noted. 17. Case was discussed with RN. 18. ROBBY care. 19. Wound Skin care protocol. 20. Continue treatment per Dr. Quiroz and consultants. Subjective Constitutional: Denies: fever HEENT: Denies: congestion Respiratory: Denies: shortness of breath Cardiovascular: Denies: chest pain Gastrointestinal/Abdominal: Denies: nausea, vomiting, diarrhea Genitourinary: Reports: other Neurologic: Denies: headache Psychiatric: Denies: depression Skin: Denies: rash Hematologic: Denies: bleeding Musculoskeletal: Denies: pain Allergies: Coded Allergies: SULFA (SULFONAMIDE ANTIBIOTICS) (Verified Allergy, Unknown, 11/22/17) Objective Vital Signs Last 24 Hour Vital Signs Date Time Temp Pulse Resp B/P (MAP) Pulse Ox O2 Delivery O2 Flow Rate FiO2 02/05/19 12:00 97.7 79 20 126/60 (82) 100 02/05/19 12:00 79 02/05/19 12:00 Nasal Cannula 4.0 02/05/19 11:20 70 22 97 Nasal Cannula 2.0 28 02/05/19 11:19 72 18 96 Nasal Cannula 2.0 28 02/05/19 09:26 97 Nasal Cannula 2.0 28 02/05/19 09:26 Nasal Cannula 2.0 28 02/05/19 08:44 76 158/75 02/05/19 08:42 158/75 02/05/19 08:42 158/75 02/05/19 08:00 Nasal Cannula 4.0 02/05/19 08:00 72 02/05/19 08:00 97.7 76 18 158/75 (102) 100 02/05/19 04:48 60 20 96 Nasal Cannula 4.0 36 02/05/19 04:00 97.0 70 18 128/69 (88) 100 02/05/19 04:00 Nasal Cannula 4.0 02/05/19 04:00 61 02/05/19 00:00 97.8 62 18 112/76 (88) 95 02/05/19 00:00 Nasal Cannula 4.0 02/04/19 23:47 62 02/04/19 21:52 128/67 02/04/19 20:00 98.2 70 20 128/67 (87) 95 02/04/19 20:00 Nasal Cannula 4.0 02/04/19 19:23 71 02/04/19 19:23 Nasal Cannula 2.0 28 02/04/19 19:22 96 Nasal Cannula 2.0 28 02/04/19 17:45 76 126/60 02/04/19 17:45 126/60 02/04/19 16:00 97.5 76 24 126/60 (82) 96 02/04/19 16:00 Nasal Cannula 4.0 02/04/19 15:33 79 Height (Feet): 5 Height (Inches): 7.00 Weight (Pounds): 220 General Appearance: no acute distress HEENT: normocephalic, atraumatic, anicteric, mucous membranes moist Respiratory/Chest: lungs clear, normal breath sounds, no respiratory distress, no accessory muscle use Cardiovascular: normal rate, regular rhythm, no gallop/murmur, no JVD Abdomen: normal bowel sounds, soft, non tender, no organomegaly, non distended Genitourinary: other - + weber - urine clear Extremities: no cyanosis Skin: no rash Neurologic/Psychiatric: noteman II-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 Findings: Patchy infiltrates noted on the right upper lobe and possibly left lung base as well. Generalized interstitial and vascular prominence demonstrated although this may be slightly improved. IMPRESSION: Persistent right upper lobe infiltrate and probable infiltrate left lung base. This could be due to pneumonia or asymmetric edema. Improved interstitial edema over one day Chest x-ray - 01/18/19 - Comparison: 01/16/2019 A single view chest radiograph was obtained. Findings: Developing pulmonary vascular congestion demonstrated. The heart is enlarged. Vascularity is more prominent. IMPRESSION: Development of CHF Chest x-ray - 01/19/19 - Procedure: XRAY Chest 1v Indication: Cough Comparison: 01/18/2019 A single view chest radiograph was obtained. Findings: Prominent pulmonary vascularity and heart size are demonstrated. Small pleural effusions are not excluded. IMPRESSION: Pulmonary vascular congestion. No significant change CT chest: IMPRESSION: Large area of focal bullous emphysema involving the right lung base accounting for the lucency demonstrated on the recent chest x-ray. Generalized emphysema noted within the lungs especially in the upper lobes. Pulmonary edema. Bilateral pleural effusions larger on the right compared to left. Posterior basilar atelectasis and/or pneumonia. Chest x-ray - 01/24/19 - IMPRESSION: Development of a unusual lucency at the right lung base. Query cavitary lesion, not seen previously. Further evaluation with CT is recommended. Bilateral pleural effusions. Worsening CHF Chest x-ray - 01/28/19 - COMPARISON: Chest x-ray dated 01/27/19 FINDINGS: Limitations: Patient's hand overlies the right lower lung, limiting its evaluation. Lungs: Persistent pulmonary vascular congestion. Subsegmental atelectasis in the left lung base. Pleural space: Persistent small left pleural effusion. Right costophrenic angle is obscured and cannot be evaluated. Heart: Cardiomegaly. Mediastinum: Unremarkable. Bones/joints: Unremarkable. IMPRESSION: 1. Patient's hand overlies the right lower lung, limiting its evaluation. 2. Persistent pulmonary vascular congestion. 3. Persistent small left pleural effusion. Right costophrenic angle is obscured and cannot be evaluated. 4. Cardiomegaly. Chest x-ray - 01/30/19 - IMPRESSION: 1. Hypoventilatory lungs. Bibasilar lung atelectasis/airspace disease. 2. Small to moderate right pleural effusion. Small left pleural effusion. Similar to prior study. 3. Mild vascular congestion slightly improved. Chest x-ray - 01/31/19: Procedure: XRAY Chest 1v Indication: Dyspnea Comparison: 01/30/2019 A single view chest radiograph was obtained. Findings: Pulmonary vascular congestion appears worse. Cardiomegaly is present. Bilateral pleural effusion suspected. IMPRESSION: CHF. Bilateral pleural effusion Microbiology Date/Time Source Procedure Growth Status 01/26/19 15:40 Blood Blood Culture - Final NO GROWTH AFTER 5 DAYS Complete 01/26/19 15:30 Sputum Induced Gram Stain - Final Complete 01/26/19 15:30 Sputum Induced Sputum Culture - Final NORMAL UPPER RESPIRATORY ALTHEA PRESENT Complete 01/26/19 15:30 Urine,Suprapubic Urine Culture - Final Iraida Famata Complete Laboratory Tests Test 02/05/19 04:00 White Blood Count 6.2 K/UL (4.8-10.8) Red Blood Count 4.26 M/UL (4.20-5.40) Hemoglobin 11.6 G/DL (12.0-16.0) L Hematocrit 36.1 % (37.0-47.0) L Mean Corpuscular Volume 85 FL (80-99) Mean Corpuscular Hemoglobin 27.2 PG (27.0-31.0) Mean Corpuscular Hemoglobin Concent 32.1 G/DL (32.0-36.0) Red Cell Distribution Width 16.5 % (11.6-14.8) H Platelet Count 397 K/UL (150-450) Mean Platelet Volume 7.0 FL (6.5-10.1) Neutrophils (%) (Auto) 58.4 % (45.0-75.0) Lymphocytes (%) (Auto) 30.9 % (20.0-45.0) Monocytes (%) (Auto) 8.7 % (1.0-10.0) Eosinophils (%) (Auto) 0.9 % (0.0-3.0) Basophils (%) (Auto) 1.1 % (0.0-2.0) Sodium Level 141 MMOL/L (136-145) Potassium Level 4.8 MMOL/L (3.5-5.1) Chloride Level 103 MMOL/L (98-107) Carbon Dioxide Level 30 MMOL/L (21-32) Anion Gap 8 mmol/L (5-15) Blood Urea Nitrogen 18 mg/dL (7-18) Creatinine 0.6 MG/DL (0.55-1.30) Estimat Glomerular Filtration Rate mL/min (>60) Glucose Level 85 MG/DL (74-106) Calcium Level 9.0 MG/DL (8.5-10.1) Magnesium Level 1.9 MG/DL (1.8-2.4) Current Medications Medications (Trade) Dose Ordered Sig/Mj Route PRN Reason Start Time Stop Time Status Last Admin Dose Admin Acetaminophen (Tylenol) 650 mg Q4H PRN ORAL Mild Pain/Temp > 100.5 01/25/19 16:00 02/15/19 15:59 02/05/19 06:00 Albuterol/ Ipratropium (Albuterol/ Ipratropium) 3 ml Q4HRT HHN 02/05/19 11:00 02/10/19 10:59 02/05/19 11:18 Amlodipine Besylate (Norvasc) 2.5 mg BID ORAL 01/27/19 18:00 02/26/19 17:59 02/05/19 08:44 Amoxicillin/ Clavulanate Potassium (Augmentin) 875 mg EVERY 12 HOURS ORAL 02/01/19 21:00 02/08/19 20:59 02/05/19 08:42 Atorvastatin Calcium (Lipitor) 10 mg BEDTIME ORAL 01/25/19 21:00 02/15/19 20:59 02/04/19 21:52 Baclofen (Lioresal) 10 mg EVERY 8 HOURS ORAL 01/27/19 06:00 02/15/19 08:59 02/05/19 13:18 Clonidine HCl (Catapres Tab) 0.1 mg BID ORAL 01/27/19 09:00 02/26/19 08:59 02/05/19 08:42 Furosemide (Lasix) 40 mg EVERY 12 HOURS ORAL 02/02/19 21:00 03/04/19 20:59 02/05/19 08:44 Guaifenesin/ Codeine Phosphate (Robitussin with codeine) 5 ml Q6H PRN ORAL For Cough 01/25/19 21:00 02/16/19 20:59 01/26/19 00:22 Hydralazine HCl (Apresoline) 10 mg Q6H PRN IV SBP >170 01/25/19 16:30 02/20/19 16:29 Lisinopril (Prinivil) 20 mg Q12HR ORAL 01/25/19 21:00 02/20/19 12:59 02/05/19 08:42 Metformin HCl (Glucophage) 500 mg TWICE A DAY ORAL 01/25/19 18:00 02/15/19 08:59 02/05/19 08:43 Pantoprazole (Protonix) 40 mg DAILY ORAL 01/26/19 09:00 02/15/19 08:59 02/05/19 08:44 Patient Own Medication (Patient's Own Med) 1 ea QOD SUBQ 01/26/19 09:00 02/17/19 08:59 02/05/19 09:11 Polyethylene Glycol (Miralax) 17 gm DAILY ORAL 01/26/19 09:00 02/21/19 08:59 01/28/19 09:45 Potassium Chloride (K-Dur) 40 meq TWICE A DAY ORAL 02/03/19 18:00 03/04/19 08:59 02/05/19 08:43 Prednisone (predniSONE) 20 mg DAILY ORAL 02/01/19 09:00 03/03/19 08:59 02/05/19 08:42 Tizanidine HCl (Zanaflex) 4 mg THREE TIMES A DAY ORAL 01/25/19 18:00 02/15/19 08:59 02/05/19 13:18 Trazodone HCl (Desyrel) 100 mg BEDTIME PRN ORAL insomnia 01/25/19 21:00 02/19/19 02:34 02/04/19 21:51 Carroll Miller MD Feb 05, 2019 15:03
--- NOTE | 2019-02-05 15:10 | Cardiology Progress Note ---
Assessment/Plan Assessment/Plan continue treatment for CHF, supportive therapy, reviewed labs Subjective Subjective the patient is breathing better, she wants to go home, but O2 delivery is delayed Objective Last 24 Hour Vital Signs Date Time Temp Pulse Resp B/P (MAP) Pulse Ox O2 Delivery O2 Flow Rate FiO2 02/05/19 12:00 97.7 79 20 126/60 (82) 100 02/05/19 12:00 79 02/05/19 12:00 Nasal Cannula 4.0 02/05/19 11:20 70 22 97 Nasal Cannula 2.0 28 02/05/19 11:19 72 18 96 Nasal Cannula 2.0 28 02/05/19 09:26 97 Nasal Cannula 2.0 28 02/05/19 09:26 Nasal Cannula 2.0 28 02/05/19 08:44 76 158/75 02/05/19 08:42 158/75 02/05/19 08:42 158/75 02/05/19 08:00 Nasal Cannula 4.0 02/05/19 08:00 72 02/05/19 08:00 97.7 76 18 158/75 (102) 100 02/05/19 04:48 60 20 96 Nasal Cannula 4.0 36 02/05/19 04:00 97.0 70 18 128/69 (88) 100 02/05/19 04:00 Nasal Cannula 4.0 02/05/19 04:00 61 02/05/19 00:00 97.8 62 18 112/76 (88) 95 02/05/19 00:00 Nasal Cannula 4.0 02/04/19 23:47 62 02/04/19 21:52 128/67 02/04/19 20:00 98.2 70 20 128/67 (87) 95 02/04/19 20:00 Nasal Cannula 4.0 02/04/19 19:23 71 02/04/19 19:23 Nasal Cannula 2.0 28 02/04/19 19:22 96 Nasal Cannula 2.0 28 02/04/19 17:45 76 126/60 02/04/19 17:45 126/60 02/04/19 16:00 97.5 76 24 126/60 (82) 96 02/04/19 16:00 Nasal Cannula 4.0 02/04/19 15:33 79 General Appearance: no apparent distress EENT: PERRL/EOMI Neck: JVD Rhythm: NSR Cardiovascular: regular rhythm Respiratory/Chest: crackles/rales - atbases Neurologic: other - arms and legs defomities due to MS Intake and Output 02/04/19 02/05/19 19:00 07:00 Intake Total 600 ml Output Total 800 ml 800 ml Balance -200 ml -800 ml Intake Oral 600 ml Output Urine Total 800 ml 800 ml # Bowel Movements 2 2 Laboratory Tests Test 02/05/19 04:00 White Blood Count 6.2 K/UL (4.8-10.8) Red Blood Count 4.26 M/UL (4.20-5.40) Hemoglobin 11.6 G/DL (12.0-16.0) L Hematocrit 36.1 % (37.0-47.0) L Mean Corpuscular Volume 85 FL (80-99) Mean Corpuscular Hemoglobin 27.2 PG (27.0-31.0) Mean Corpuscular Hemoglobin Concent 32.1 G/DL (32.0-36.0) Red Cell Distribution Width 16.5 % (11.6-14.8) H Platelet Count 397 K/UL (150-450) Mean Platelet Volume 7.0 FL (6.5-10.1) Neutrophils (%) (Auto) 58.4 % (45.0-75.0) Lymphocytes (%) (Auto) 30.9 % (20.0-45.0) Monocytes (%) (Auto) 8.7 % (1.0-10.0) Eosinophils (%) (Auto) 0.9 % (0.0-3.0) Basophils (%) (Auto) 1.1 % (0.0-2.0) Sodium Level 141 MMOL/L (136-145) Potassium Level 4.8 MMOL/L (3.5-5.1) Chloride Level 103 MMOL/L (98-107) Carbon Dioxide Level 30 MMOL/L (21-32) Anion Gap 8 mmol/L (5-15) Blood Urea Nitrogen 18 mg/dL (7-18) Creatinine 0.6 MG/DL (0.55-1.30) Estimat Glomerular Filtration Rate mL/min (>60) Glucose Level 85 MG/DL (74-106) Calcium Level 9.0 MG/DL (8.5-10.1) Magnesium Level 1.9 MG/DL (1.8-2.4) Angela Gage MD Feb 05, 2019 15:10
[2019-02-05 16:00] VITALS: BP 131/60
--- NOTE | 2019-02-05 19:15 | NUR ---
HAND-OFF: Report given to SHEMAR Piña. Patient in stable condition.
--- NOTE | 2019-02-05 19:23 | NUR ---
NURSE NOTES: Received report from SHEMAR Adams. Patient in bed awake,alert able to verbalize needs to staff. Patient watching TV. No s/s of acute distress noted. Patient on O2 2L via NC, SpO2 96%; no acute respiratory distress noted. Left wrist IV 22g intact and patent; right hand IV 22g intact and patent. Suprapubic catheter intact with some leak and draining well by gravity. No s/s of pain/discomfort at this time. Instructed patient to use call light for assistance. Contact isolation maintained and observed. Bed locked, alarmed, and in lowest position; side rails up, and call light left within reach. Will continue to monitor.
[2019-02-05 20:00] VITALS: BP 116/59
[2019-02-05] MEDS: TraZODone 100mg tab ORAL PRN (21:56)
[2019-02-06] VITALS: BP 106/59
--- NOTE | 2019-02-06 | NUR ---
NURSE NOTES: Patient in bed sleeping comfortably. No s/s of acute distress noted. No moaning no facial grimaces noted. Will continue plan of care.
[2019-02-06] MEDS: Albuterol/Ipratropium 3ml neb HHN SCH ×5 (03:00→19:15)
[2019-02-06 04:00] VITALS: BP 128/72
--- NOTE | 2019-02-06 07:24 | NUR ---
HAND-OFF: Report given to Cass STATON.
[2019-02-06 08:00] VITALS: BP 115/60
--- NOTE | 2019-02-06 08:00 | NUR ---
NURSE NOTES: a&o x4. Stable. Denies pain or discomofrt. 2 L NC saturating 94%. Patient has a suprapubic catheter that is changed at home. Bilateral heel redness. L wrist 22 R hand 20. Hypoactive bowel sounds. Lung sounds clear bilaterally. Bed on lowest position, bed alarm on for safety, call light within reach. Will continue plan of care.
--- NOTE | 2019-02-06 08:34 | NUR ---
RADIOLOGY DEPT., CHEST X-RAY DONE.-P.DYE
[2019-02-06] MEDS: Lisinopril 20mg tab ORAL SCH ×2 (09:00→20:05)
[2019-02-06] MEDS: Miralax 17gm pkt ORAL SCH (09:00)
[2019-02-06] MEDS: Furosemide 40mg tab ORAL SCH ×2 (10:03→20:04)
[2019-02-06] MEDS: metFORMIN 500mg tab ORAL SCH ×2 (10:03→17:43)
--- NOTE | 2019-02-06 11:54 | Diagnostic Imaging Report ---
Indication: Cough Comparison: 02/02/2019 A single view chest radiograph was obtained. Findings: Bilateral pleural effusions suspected. Cardiomegaly is present. Mild vascular congestion suspected. IMPRESSION: No significant change
[2019-02-06 12:00] VITALS: BP 114/66
--- NOTE | 2019-02-06 12:55 | Pulmonology Progress Note ---
Assessment/Plan Assessment/Plan 1. Pneumonia, resolving 2. UTI with chronic suprapubic catheter, e coli 3. Multiple sclerosis. 4. Sinus tachycardia 5. Diabetes. 6. Hyponatremia. 7. Neurogenic bladder. 8. Hypertension. 9. Hyperlipidemia. 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 effusions, atelectasis - CHF PO steroids for COPD BP better CXR same abx PO lasix PO disc w RN dc plan home w HH and CG when O2 delivered Subjective Constitutional: Reports: no symptoms Allergies: Coded Allergies: SULFA (SULFONAMIDE ANTIBIOTICS) (Verified Allergy, Unknown, 11/22/17) Objective Last 24 Hour Vital Signs Date Time Temp Pulse Resp B/P (MAP) Pulse Ox O2 Delivery O2 Flow Rate FiO2 02/06/19 12:00 Nasal Cannula 4.0 02/06/19 11:08 Nasal Cannula 2.0 28 02/06/19 11:08 Nasal Cannula 2.0 28 02/06/19 11:01 97.6 02/06/19 09:00 80 115/60 02/06/19 09:00 115/60 02/06/19 09:00 115/60 02/06/19 08:00 97.4 86 24 115/60 (78) 95 02/06/19 08:00 82 02/06/19 08:00 Nasal Cannula 4.0 02/06/19 07:33 Nasal Cannula 2.0 28 02/06/19 07:33 96 Nasal Cannula 2.0 28 02/06/19 07:10 Nasal Cannula 2.0 28 02/06/19 07:10 Nasal Cannula 2.0 28 02/06/19 04:00 97.6 77 20 128/72 (90) 96 02/06/19 04:00 Nasal Cannula 4.0 02/06/19 04:00 72 02/06/19 03:17 Nasal Cannula 02/06/19 03:17 Nasal Cannula 02/06/19 00:00 77 02/06/19 00:00 Nasal Cannula 4.0 02/06/19 00:00 98.6 84 20 106/59 (75) 96 02/05/19 23:28 Nasal Cannula 02/05/19 23:28 Nasal Cannula 02/05/19 21:56 116/59 02/05/19 20:00 98.5 80 20 116/59 (78) 96 02/05/19 20:00 Nasal Cannula 4.0 02/05/19 20:00 80 02/05/19 19:38 79 20 97 Nasal Cannula 2.0 28 02/05/19 19:28 95 Nasal Cannula 2.0 28 02/05/19 19:28 77 18 95 Nasal Cannula 2.0 28 02/05/19 19:28 Nasal Cannula 2.0 28 02/05/19 17:26 78 131/60 02/05/19 17:25 131/60 02/05/19 16:00 Nasal Cannula 4.0 02/05/19 16:00 78 02/05/19 16:00 97.5 88 20 131/60 (83) 91 02/05/19 15:22 79 20 96 Nasal Cannula 2.0 28 02/05/19 15:21 79 18 95 Nasal Cannula 2.0 28 Intake and Output 02/05/19 02/06/19 18:59 06:59 Intake Total 500 ml Output Total 500 ml 850 ml Balance 0 ml -850 ml Intake Oral 500 ml Output Urine Total 500 ml 850 ml # Bowel Movements 1 Objective obese General Appearance: no acute distress Respiratory/Chest: lungs clear, decreased breath sounds Cardiovascular: normal rate Current Medications Medications (Trade) Dose Ordered Sig/Mj Route PRN Reason Start Time Stop Time Status Last Admin Dose Admin Acetaminophen (Tylenol) 650 mg Q4H PRN ORAL Mild Pain/Temp > 100.5 01/25/19 16:00 02/15/19 15:59 02/05/19 06:00 Albuterol/ Ipratropium (Albuterol/ Ipratropium) 3 ml Q4HRT HHN 02/05/19 11:00 02/10/19 10:59 02/05/19 19:28 Amlodipine Besylate (Norvasc) 2.5 mg BID ORAL 01/27/19 18:00 02/26/19 17:59 02/05/19 17:26 Atorvastatin Calcium (Lipitor) 10 mg BEDTIME ORAL 01/25/19 21:00 02/15/19 20:59 02/05/19 21:57 Baclofen (Lioresal) 10 mg EVERY 8 HOURS ORAL 01/27/19 06:00 02/15/19 08:59 02/06/19 06:24 Clonidine HCl (Catapres Tab) 0.1 mg BID ORAL 01/27/19 09:00 02/26/19 08:59 02/05/19 17:25 Furosemide (Lasix) 40 mg EVERY 12 HOURS ORAL 02/02/19 21:00 03/04/19 20:59 02/06/19 10:03 Guaifenesin/ Codeine Phosphate (Robitussin with codeine) 5 ml Q6H PRN ORAL For Cough 01/25/19 21:00 02/16/19 20:59 01/26/19 00:22 Hydralazine HCl (Apresoline) 10 mg Q6H PRN IV SBP >170 01/25/19 16:30 02/20/19 16:29 Lisinopril (Prinivil) 20 mg Q12HR ORAL 01/25/19 21:00 02/20/19 12:59 02/05/19 21:56 Metformin HCl (Glucophage) 500 mg TWICE A DAY ORAL 01/25/19 18:00 02/15/19 08:59 02/06/19 10:03 Pantoprazole (Protonix) 40 mg DAILY ORAL 01/26/19 09:00 02/15/19 08:59 02/06/19 10:01 Patient Own Medication (Patient's Own Med) 1 ea QOD SUBQ 01/26/19 09:00 02/17/19 08:59 02/05/19 09:11 Polyethylene Glycol (Miralax) 17 gm DAILY ORAL 01/26/19 09:00 02/21/19 08:59 01/28/19 09:45 Potassium Chloride (K-Dur) 40 meq TWICE A DAY ORAL 02/03/19 18:00 03/04/19 08:59 02/06/19 10:02 Prednisone (predniSONE) 20 mg DAILY ORAL 02/01/19 09:00 03/03/19 08:59 02/06/19 10:03 Tizanidine HCl (Zanaflex) 4 mg THREE TIMES A DAY ORAL 01/25/19 18:00 02/15/19 08:59 02/06/19 10:02 Trazodone HCl (Desyrel) 100 mg BEDTIME PRN ORAL insomnia 01/25/19 21:00 02/19/19 02:34 02/05/19 21:56 Robb Quiroz MD Feb 06, 2019 12:55
--- NOTE | 2019-02-06 13:11 | NUR ---
ORDER EXPEDITERSTAFF CYTOTECHNOLOGIST SI: PNA . CHF VS: BP 106/59, P 72, T 97.6, RR 20, SpO2 96 oN 4.0L O2 CXR: Bilateral pleural effusions. Cardiomegaly is present. Mild vascular congestion. IS:METFORMIN 500mg PREDNISONE 20mg LASIX 40mg ZANAFLEX 4mg K-DUR 40meq SDU STATUS
--- NOTE | 2019-02-06 14:00 | NUR ---
NURSE NOTES: VSS. No distress noted. Turned and repositioned. Awaiting on discharge instructions and oxygen delivery to home.
--- NOTE | 2019-02-06 14:39 | NUR ---
*-* INSURANCE *-* UPDATED CLINICALS AND REVIEW HAVE BEEN FAXED TO: [facility] P- [phone] F- [phone].....REVIEW/CLINICAL
--- NOTE | 2019-02-06 15:51 | NUR ---
LINING CASER NOTES SPOKE WITH CHRISTIAN GUTIERREZ FROM [facility], AUTHORIZATION FOR HOME OXYGEN GIVEN. SPOKE WITH YULISSA PT'S CAREGIVER, MADE AWARE OF DELIVERY HOURS. OK TO DC PT HOME ONCE OXYGEN IS DELIVERED. SONDRA TO CALL THE NURSING UNIT ONCE OXYGEN IS SET UP @ HOME. PRIMARY NURSE AND CHARGE NURSE MADE AWARE. Addendum: 02/06/19 at 1607 by BAR NDIAYE RN RN RECEIVED CALL FROM ANNALEE FROM [facility], HOURS OF DELIVERY WILL BE BETWEEN 5-8 PM. SONDRA TO CALL ONCE DELIVERY IS COMPLETE. PT WILL BE LACED ON WILL CALL, NURSE TO ACTIVATE WILL CALL WITH [facility] ONCE OXYGEN IS DELIVERED TO THE HOME.
[2019-02-06 16:00] VITALS: BP 122/70
--- NOTE | 2019-02-06 19:04 | NUR ---
HAND-OFF: Report given to Catarina RN using SBAR. VSS. No distress noted.
--- NOTE | 2019-02-06 19:06 | NUR ---
NURSE NOTES: Received bed side report from SHEMAR Odell.Patient stable,A&O x4,SR on security monitor,tolerated well 2L/min via N/C,lungs diminished sound in auscultation,BS active in all quadrants,IV intact,patient ready for D/C @ 1999,going home.Bed secured in a low safety position,call light within a reach,will monitor pt.
[2019-02-06 20:00] VITALS: BP 104/50
--- NOTE | 2019-02-06 20:21 | Cardiology Progress Note ---
Assessment/Plan Assessment/Plan 1. Hypotension, probably multifactorial, possibly volume related versus medication related (resolved) 2. Pneumonia. 3. Multiple sclerosis. 4. Diabetes mellitus. 5. Chronic suprapubic catheter. 6. Decubitus ulcers 7. MS (multiple sclerosis) 8. edema 9. Labiel htn blood cx neg sofar still urine cx positive off ivf on [facility] echo report noted nomral lv fxn tele personally rev. sinus iv Lasix while inpt out pt may need 60-80 mg bid lasix dc plan with dr weaver Subjective Cardiovascular: Denies: chest pain Respiratory: Denies: shortness of breath Gastrointestinal/Abdominal: Denies: abdomen distended Genitourinary: Denies: burning Objective Last 24 Hour Vital Signs Date Time Temp Pulse Resp B/P (MAP) Pulse Ox O2 Delivery O2 Flow Rate FiO2 02/06/19 19:22 79 20 97 Nasal Cannula 2.0 28 02/06/19 19:14 96 Nasal Cannula 2.0 28 02/06/19 19:14 Nasal Cannula 2.0 28 02/06/19 19:11 70 20 96 Nasal Cannula 2.0 28 02/06/19 18:42 98.5 02/06/19 17:13 70 122/70 02/06/19 17:12 122/70 02/06/19 16:00 98.5 77 23 122/70 (87) 95 02/06/19 16:00 86 02/06/19 16:00 Nasal Cannula 4.0 02/06/19 15:11 Nasal Cannula 2.0 28 02/06/19 15:11 Nasal Cannula 2.0 28 02/06/19 12:00 98.2 80 24 114/66 (82) 93 02/06/19 12:00 79 02/06/19 12:00 Nasal Cannula 4.0 02/06/19 11:08 Nasal Cannula 2.0 28 02/06/19 11:08 Nasal Cannula 2.0 28 02/06/19 09:00 80 115/60 02/06/19 09:00 115/60 02/06/19 09:00 115/60 02/06/19 08:00 97.4 86 24 115/60 (78) 95 02/06/19 08:00 82 02/06/19 08:00 Nasal Cannula 4.0 02/06/19 07:33 Nasal Cannula 2.0 02/06/19 07:33 96 Nasal Cannula 2.0 28 02/06/19 07:10 Nasal Cannula 2.0 02/06/19 07:10 Nasal Cannula 2.0 02/06/19 04:00 97.6 77 20 128/72 (90) 96 02/06/19 04:00 Nasal Cannula 4.0 02/06/19 04:00 72 02/06/19 03:17 Nasal Cannula 02/06/19 03:17 Nasal Cannula 02/06/19 00:00 77 02/06/19 00:00 Nasal Cannula 4.0 02/06/19 00:00 98.6 84 20 106/59 (75) 96 02/05/19 23:28 Nasal Cannula 02/05/19 23:28 Nasal Cannula 02/05/19 21:56 116/59 General Appearance: no apparent distress, alert Neck: no JVD Cardiovascular: normal rate Respiratory/Chest: lungs clear Abdomen: normal bowel sounds, non tender, soft Extremities: trace edema Intake and Output 02/05/19 02/06/19 19:00 07:00 Intake Total 500 ml Output Total 500 ml 850 ml Balance 0 ml -850 ml Intake Oral 500 ml Output Urine Total 500 ml 850 ml # Bowel Movements 1 Krishna Perry MD Feb 06, 2019 20:21
--- NOTE | 2019-02-06 20:25 | NUR ---
NURSE NOTES: Report given to SHEMAR Alonso.Patient scheduled to tack picker with [facility]
--- NOTE | 2019-02-06 23:30 | NUR ---
NURSE NOTES DISCHARGE PATIENT TO HOME IN STABLE CONDITION.REPORT GIVEN TO [facility] PERSONNEL.CALLED CAREGIVER LIZA INFORMED HER PATIENT WAS ON THE WAY HOME.SON IS AWARE OGF THE DISCHARGE.
--- NOTE | 2019-02-08 08:49 | Discharge Summary ---
Discharge Summary Discharge Summary _ DATE OF ADMISSION: 01/15/2019 DATE OF DISCHARGE: 02/06/2019 DISCHARGED BY: Dr. Quiroz REASON FOR ADMISSION: 73 years old female with past medical history of multiple sclerosis, neurogenic bladder, chronic suprapubic catheter, hypertension, hyperlipidemia, diabetes mellitus type 2, quadriplegia, morbid obesity, anemia, presented from home with complaint of fever and cough for 2 days. After initial evaluation in emergency room patient was found to have pneumonia and UTI . Vital signs revealed low-grade fever . Lactic acid was stable. No leukocytosis , stable hemoglobin and hematocrit. Sodium 133. Stable renal parameters . Troponin negative Albumin 2.8 Patient pancultured , started on empiric antibiotic and admitted for further management . CONSULTANTS: railroad emergency services manager Dr. Perry ID specialist surgery Dr. [place] [facility] COURSE: Patient admitted and started on IV fluids and empiric antibiotics. Infectious disease specialist followed. Urine culture revealed E. coli. Blood culture, initial and repeated , were negative. Sputum culture was negative . Repeated urine culture revealed Iraida. Antibiotic regimen was optimized as per ID specialist recommendation. Patient was treated for E. coli UTI/ pyelonephritis and pneumonia. Patient completed antibiotic course. Supplemental oxygen provided as needed to keep pulse oximetry above 92%. Pulmonary toilet provided as needed. ABG revealed evidence of hypoxia. Patient required Venturi mask. CT of the chest demonstrated large area of focal bullous emphysema , involving the right lung base with generalized emphysema throughout the lungs, especially in the upper lobes. Pulmonary edema. Bilateral pleural effusion larger on the right , compared to the left. Patient started on steroids with gradual tapering as per billboard erector. Venous duplex bilateral lower extremity revealed no evidence of acute DVT. Ultrasound-guided thoracentesis of pleural effusion was ordered, however ultrasound of the chest revealed small right pleural effusion and trace left pleural effusion , not enough fluid to tap. Supplemental oxygen titrated to keep pulse oximetry above 90%. Patient was on Venturi mask, face mask, BiPAP , and eventually, as clinically improved , was able to be downgraded to oxygen via nasal cannula. [employer] Consultant followed. Initial hypotension was probably multifactorial , as per railroad emergency services manager , possibly volume related versus medication related . Hypotension resolved. Patient had a labile hypertension. Echocardiogram revealed preserved ejection fraction of 60 to 65% with mild left ventricular hypertrophy. No evidence of wall motion abnormality. Right ventricular systolic pressure of 39 consistent with mild pulmonary hypertension. Patient was on IV diuresis as per railroad emergency services manager recommendations with close monitoring of volumes and cardiorenal parameters. Video swallow evaluation was abnormal. Patient with high silent aspiration risk. Diet texture modified as per speech therapist recommendation with strict aspiration/ reflux precaution and one-to-one feeding. Patient was continued with swallow treatment while in the hospital. Protein supplements implemented in plan of care. Renal parameters and electrolytes were closely monitored. Electrolytes corrected as needed, including hypomagnesemia, hyponatremia and hyperkalemia. All electrolytes stable prior to discharge. General surgeon closely followed . Wound care, for present on admission multiply pressure injuries , provided as per surgeon recommendations. Continue wound care at home as recommended by surgeon. Supportive care provided. Bowel regimen instituted. Pain management was addressed as needed. Blood sugar was managed with metformin. Sliding scale of insulin was on board as needed. Antihypertensive regimen titrated to keep blood pressure under control. Patient clinically stabilized . Blood pressure stable. Pulse oximetry stable on 4 L of oxygen via nasal cannula. Home oxygen delivery was arranged by dependency case manager. Pro BNP trended down from initial 1257 down to 200. Patient discharged on oral Lasix . Patient will need close monitoring of blood pressure , volumes and renal parameters as outpatient. FINAL DIAGNOSES: Pneumonia E. coli UTI /pyelonephritis with chronic suprapubic catheter Multiple sclerosis Sinus tachycardia Diabetes mellitus Bullous emphysema, past smoker Pleural effusion with atelectasis Congestive heart failure, diastolic Electrolyte abnormalities-resolved Neurogenic bladder Hypotension probably multifactorial likely volume related versus medication related- resolved Hyperlipidemia Labile hypertension Decubitus ulcer, present on admission Morbid obesity DISCHARGE MEDICATIONS: See Medication Reconciliation list. DISCHARGE INSTRUCTIONS: Patient was discharged home with home health services. Follow up with primary care provider in one week. I have been assigned to dictate discharge summary for this account. I was not involved in the patient's management. Katie Thornton NP Feb 08, 2019 08:49
--- NOTE | 2019-02-08 14:23 | NUR ---
*-* DISCHARGE PLANNING *-* PATIENT HAS BEEN REFERRED TO: [facility] P:[phone] F:[phone]
== END 2019-02-06 23:30 | disposition home or self-care (01) | DRG 193 ==
LOC: EDBD 16:04 → EDSEX 16:04 → EMR 16:41 → 2E 19:39 → EDBEDREQ 20:35 → 2W 01-16 10:59 → 2E 01-19 17:58 → ICU 01-21 01:45 → 2W 01-25 16:29
DX: J18.9 Pneumonia, unspecified organism (principal); G82.50 Quadriplegia, unspecified; E87.1 Hypo-osmolality and hyponatremia; N39.0 Urinary tract infection, site not specified; J98.11 Atelectasis; I50.30 Unspecified diastolic (congestive) heart failure; J90 Pleural effusion, not elsewhere classified; K59.00 Constipation, unspecified; G35 Multiple sclerosis; L89.159 Pressure ulcer of sacral region, unspecified stage; B96.20 Unspecified Escherichia coli [E. coli] as the cause of diseases classified elsewhere; R00.0 Tachycardia, unspecified; J43.9 Emphysema, unspecified; I11.0 Hypertensive heart disease with heart failure; N31.9 Neuromuscular dysfunction of bladder, unspecified; I95.9 Hypotension, unspecified; I16.0 Hypertensive urgency; E66.01 Morbid (severe) obesity due to excess calories; Z68.34 Body mass index [BMI] 34.0-34.9, adult; R09.02 Hypoxemia; E83.42 Hypomagnesemia; E87.5 Hyperkalemia
CPT/HCPCS: 36415; 36600; 71045; 71250; 74018; 74230; 76604; 80048; 80053; 80202; 81003; 82550; 82553; 82803; 82962; 83605; 83735; 83880; 84100; 84484; 85007; 85025; 85610; 85651; 85730; 86140; 86710; 87040; 87070; 87086; 87181; 87205; 93005; 93306; 93930; 93970; 94640; 94660; 94664; 94760; 96361; 96365; 96366; 96368; 99285; J3490; J7620; J8499

== ENCOUNTER 2019-08-18 09:08 | Inpatient (IN) | payer OTHER, MEDICAID ==
[~2019-08-18] VITALS: Ht 172.7 cm; Wt 104.3 kg
[~2019-08-18 09:08] MED LIST changes: +CLONIDINE0.1 MG ORAL; +DESYREL100 MG ORAL; +FUROSEMIDE40 MG ORAL; +K-TAB ER20 MEQ ORAL; +NORVASC2.5 MG ORAL; +PREDNISONE20 MG ORAL; +PRINIVIL20 MG ORAL
--- NOTE | 2019-08-18 09:08 | NUR ---
ED Nurse Note: Patient arrived to ED from home complaining of headache x 2 days. Patient AxO x 4, she knows where she is and the purpose of the visit. No s/s of acute distress. Patient on the cardiac exercise physiologist, bed in lowest position. Skin intact.
--- NOTE | 2019-08-18 09:22 | NUR ---
ED Nurse Note: Blood glucose check is 85, Dr. García notified.
--- NOTE | 2019-08-18 09:27 | NUR ---
ED Nurse Note: Patient taken to CT scan.
[2019-08-18 09:32] VITALS: BP 148/79
[2019-08-18] MEDS ORDERED: ALBUTEROL2.5 MG/3 M INH (09:35)
--- NOTE | 2019-08-18 09:42 | NUR ---
ED Nurse Note: Patient returned from CT.
[2019-08-18] MEDS ORDERED: AMLODIPINE BESYL5 MG ORAL (09:59)
[2019-08-18] MEDS ORDERED: DULCOLAX10 MG RC (09:59)
[2019-08-18] MEDS ORDERED: QVAR7.3 GM INH (09:59)
[2019-08-18] MEDS ORDERED: ATORVASTATIN CA40 MG ORAL (09:59)
[2019-08-18] MEDS ORDERED: ASCORBIC ACID500 MG ORAL (09:59)
--- NOTE | 2019-08-18 10:02 | Diagnostic Imaging Report ---
Indications: Headache Technique: Spiral acquisitions obtained through the brain. Angled axial and coronal 5 x 5 mm slices were reconstructed. Total dose length product 1520 mGycm. CTDI vol(s) 62 mGy. Dose reduction achieved using automated exposure control Comparison: None. 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 No acute intracranial hemorrhage or edema. No mass effect nor midline shift. Normal for age ventricles and extra axial CSF spaces. In addition to the white matter infarcts, there is considerable periventricular deep white matter chronic ischemic change. Otherwise normal granda-white differentiation. Visualized orbits are unremarkable. Sinuses are clear. The mastoids are clear. The calvarium is intact. 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
--- NOTE | 2019-08-18 10:07 | NUR ---
ED Nurse Note: Blood sent to lab.
[2019-08-18 10:24] LABS: BASOPHILS % (AUTO) 0.7 % (0.0-2.0); EOSINOPHILS % (AUTO) 1.5 % (0.0-3.0); HEMATOCRIT 41.8 % (37.0-47.0); HEMOGLOBIN 13.4 G/DL (12.0-16.0); LYMPHOCYTES % (AUTO) 27.6 % (20.0-45.0); MEAN CORPUSCULAR VOLUME 84 FL (80-99); MONOCYTES % (AUTO) 8.1 % (1.0-10.0); NEUTROPHILS % (AUTO) 62.2 % (45.0-75.0); PLATELET COUNT 272 K/UL (150-450); RED BLOOD COUNT 4.95 M/UL (4.20-5.40); RED CELL DISTRIBUTION WIDTH 16.8 % (11.6-14.8); WHITE BLOOD COUNT 4.6 K/UL (4.8-10.8)
[2019-08-18] MEDS ORDERED: METFORMIN HCL500 M1 ORAL (10:26)
[2019-08-18] MEDS ORDERED: MONTELUKAST SOD10 MG ORAL (10:26)
[2019-08-18] MEDS ORDERED: FERROUS SULFAT325 MG ORAL (10:26)
[2019-08-18] MEDS ORDERED: METHENAMINE1 GM MC (10:26)
[2019-08-18] MEDS ORDERED: ZINC SULFATE220 M1 ORAL (10:26)
[2019-08-18 10:30] LABS: INR 0.9 (0.9-1.1)
[2019-08-18 10:32] LABS: ANION GAP 3 mmol/L (5-15); BLOOD UREA NITROGEN 15 mg/dL (7-18); CALCIUM 9.4 MG/DL (8.5-10.1); CARBON DIOXIDE 33 MMOL/L (21-32); CHLORIDE 105 MMOL/L (98-107); CREATININE 0.5 MG/DL (0.55-1.30); POTASSIUM 4.6 MMOL/L (3.5-5.1); SODIUM 141 MMOL/L (136-145)
[2019-08-18 10:37] LABS: ALANINE AMINOTRANSFERASE 38 U/L (12-78); ALBUMIN 3.1 G/DL (3.4-5.0); ALBUMIN/GLOBULIN RATIO 0.6 (1.0-2.7); ALKALINE PHOSPHATASE 132 U/L (46-116); ASPARTATE AMINO TRANSFERASE 27 U/L (15-37); BILIRUBIN,TOTAL 0.3 MG/DL (0.2-1.0)
[2019-08-18 10:57] LABS: APPEARANCE,URINE CLEAR; BILIRUBIN, URINE NEGATIVE (NEGATIVE); COLOR,URINE YELLOW; GLUCOSE, URINE (UA) NEGATIVE (NEGATIVE); KETONES,URINE NEGATIVE (NEGATIVE); LEUKOCYTE ESTERASE ,URINE 3+ (NEGATIVE); NITRITE,URINE POSITIVE (NEGATIVE); PH,URINE 7 (4.5-8.0); PROTEIN,URINE 3+ (NEGATIVE); UROBILINOGEN,URINE NORMAL MG/DL (0.0-1.0)
--- NOTE | 2019-08-18 11:35 | Emergency Room Report ---
History of Present Illness General Chief Complaint: Headache Source: Patient Present Illness HPI The patient is accompanied by her caregiver. Patient herself is altered and was unable to give any type of history. Patient does have a history of MS with paraplegia and neurogenic bladder. Patient's caregiver reports that she has been hallucinating. The patient did tell me that dogs were biting her feet and sniffing her private areas. The caregiver is requesting an anxiety medication for her hallucinations. No reported fever or nausea or vomiting. The patient herself only complained about the dogs and then confabulates more nonsensical sentences. The caregiver states that there was changes to the patient psychiatric medications. There was an increase in the trazodone before bed. Allergies: Coded Allergies: SULFA (SULFONAMIDE ANTIBIOTICS) (Verified Allergy, Unknown, 11/22/17) Patient History Past Medical History: see triage record, DM, HTN, GERD, other - MS, Neurogenic bladder Social History: Denies: smoking, alcohol use, drug use Reviewed Nursing Documentation: PMH: Agreed; PSxH: Agreed Nursing Documentation-PMH Past Medical History: No History, Except For Hx Cardiac Problems: Yes - CHF, MS Hx Hypertension: Yes Hx Diabetes: Yes Hx Cancer: No Hx Gastrointestinal Problems: No Hx Multiple Sclerosis: Yes Review of Systems All Other Systems: limited Physical Exam Vital Signs Date Time Temp Pulse Resp B/P (MAP) Pulse Ox O2 Delivery O2 Flow Rate FiO2 08/18/19 09:02 97.5 85 18 155/77 (103) 97 Room Air Sp02 EP Interpretation: reviewed, normal General Appearance: no apparent distress, alert, GCS 15, non-toxic, obese Head: normocephalic, atraumatic Eyes: bilateral eye normal inspection ENT: hearing grossly normal, normal pharynx, no angioedema, normal voice Neck: full range of motion, supple/symm/no masses Respiratory: chest non-tender, lungs clear, normal breath sounds, no respiratory distress, no retraction, no accessory muscle use, speaking full sentences Cardiovascular #1: regular rate, rhythm, no edema Gastrointestinal: normal bowel sounds, non tender, soft, non-distended, no guarding, no rebound Rectal: deferred Genitourinary: normal inspection, other - weber catheter in place Musculoskeletal: other - contracted at baseline Neurologic: alert, responsive, speech normal, other - Paraplegia at baseline. More altered than baseline (per report of caregiver) Psychiatric: mood/affect normal Skin: other Medical Decision Making Diagnostic Impression: Primary Impression: Encephalopathy Additional Impression: UTI (urinary tract infection) ER Course This patient is found to have a urinary tract infection. I was able to speak with the patient's primary care physician. She has a history of multidrug- resistant urinary tract infections. She normally is alert and articulate. Today she presents with hallucinations consistent with encephalopathy. CT of her head is unremarkable. Per report from the caregiver, when she gets an infection these same hallucinations occur. Patient is not septic. She is given meropenem given the history of multidrug-resistant urinary tract infection. She remained stable in the emergency department and was admitted for further evaluation and treatment. Laboratory Tests Test 08/18/19 10:00 08/18/19 10:30 White Blood Count 4.6 K/UL (4.8-10.8) L Red Blood Count 4.95 M/UL (4.20-5.40) Hemoglobin 13.4 G/DL (12.0-16.0) Hematocrit 41.8 % (37.0-47.0) Mean Corpuscular Volume 84 FL (80-99) Mean Corpuscular Hemoglobin 27.1 PG (27.0-31.0) Mean Corpuscular Hemoglobin Concent 32.1 G/DL (32.0-36.0) Red Cell Distribution Width 16.8 % (11.6-14.8) H Platelet Count 272 K/UL (150-450) Mean Platelet Volume 8.3 FL (6.5-10.1) Neutrophils (%) (Auto) 62.2 % (45.0-75.0) Lymphocytes (%) (Auto) 27.6 % (20.0-45.0) Monocytes (%) (Auto) 8.1 % (1.0-10.0) Eosinophils (%) (Auto) 1.5 % (0.0-3.0) Basophils (%) (Auto) 0.7 % (0.0-2.0) Prothrombin Time 10.0 SEC (9.30-11.50) Prothrombin Time INR 0.9 (0.9-1.1) PTT 27 SEC (23-33) Sodium Level 141 MMOL/L (136-145) Potassium Level 4.6 MMOL/L (3.5-5.1) Chloride Level 105 MMOL/L (98-107) Carbon Dioxide Level 33 MMOL/L (21-32) H Anion Gap 3 mmol/L (5-15) L Blood Urea Nitrogen 15 mg/dL (7-18) Creatinine 0.5 MG/DL (0.55-1.30) L Estimate Glomerular Filtration Rate mL/min (>60) Glucose Level 85 MG/DL (74-106) Calcium Level 9.4 MG/DL (8.5-10.1) Total Bilirubin 0.3 MG/DL (0.2-1.0) Aspartate Amino Transferase (AST) 27 U/L (15-37) Alanine Aminotransferase (ALT) 38 U/L (12-78) Alkaline Phosphatase 132 U/L (46-116) H Total Protein 8.4 G/DL (6.4-8.2) H Albumin 3.1 G/DL (3.4-5.0) L Globulin 5.3 g/dL Albumin/Globulin Ratio 0.6 (1.0-2.7) L Urine Color Yellow Urine Appearance Clear Urine pH 7 (4.5-8.0) Urine Specific [place] 1.005 (1.005-1.035) Urine Protein 3+ (NEGATIVE) H Urine Glucose (UA) Negative (NEGATIVE) Urine Ketones Negative (NEGATIVE) Urine Blood 3+ (NEGATIVE) H Urine Nitrite Positive (NEGATIVE) H Urine Bilirubin Negative (NEGATIVE) Urine Urobilinogen Normal MG/DL (0.0-1.0) Urine Leukocyte Esterase 3+ (NEGATIVE) H Urine RBC 5-10 /HPF (0 - 2) H Urine WBC 20-30 /HPF (0 - 2) H Urine Squamous Epithelial Cells Few /LPF (NONE/OCC) Urine Bacteria Few /HPF (NONE) EKG Diagnostic Results Rate: normal Rhythm: NSR ST Segments: no acute changes Rhythm Strip Diag. Results EP Interpretation: yes Rate: 60's Rhythm: NSR, no PVC's, no ectopy CT/MRI/US Diagnostic Results CT/MRI/US Diagnostic Results : Imaging Test Ordered: CT head Impression No acute findings. Specifically no intracranial bleed, mass effect or edema. See official report. Last Vital Signs Date Time Temp Pulse Resp B/P (MAP) Pulse Ox O2 Delivery O2 Flow Rate FiO2 08/18/19 09:32 97.5 87 18 148/79 97 Room Air Disposition: ADMITTED INPATIENT Condition: Serious Referrals: NOT CHOSEN IPA/,REFERRING (PCP) Pina García DO Aug 18, 2019 11:35
[2019-08-18] MEDS ORDERED: Meropenem 1 GM in NS 55 ML IVPB ONE (12:15)
--- NOTE | 2019-08-18 14:00 | NUR ---
ED Nurse Note: Report given to Eliseo STATON.
[2019-08-18 14:15] VITALS: BP 131/63
--- NOTE | 2019-08-18 15:53 | NUR ---
NURSE NOTES:WOUND CARE NOTES:Morbidly obese pt whom presented on admission with partial thickness pressure injury upper L buttocks. Base of wound is moist and viable (L)0.6cm x (W)0.8cm. Hyperpigmentation with scarring from previous wounds noted to sacral area,R and L ischial tuberosities.Abd folds and bilat groin skin folds moist with darker skin tone.Multiple nevi noted to medial aspects of both thighs . Partial thickness pressure injury noted to medial R heel (L)1.6cm x (W)2cm.Base of wound is moist and viable .Surrounding area of heel boggy but blanchable. Small partial thickness ulcers noted to R 3rd,4th and 5th metatarsals. Wounds are moist and viable. No exudate noted. Small dry scabs noted to R 1st metatarsal. L heel is boggy but blanchable. Tx.Plan:Apply Moisture Barrier Paste to sacrum. Cover with Optifoam drsg. Change every 3 days and prn. Apply Moisture Barrier paste to abdominal folds, bilat groin and both ischial tuberosities with each incontinence care Apply Betadine to R 3rd ,4th and 5th metatarsals Daily. Apply Betadine to Medial R heel. Cover with Optifoam drsg. Change every 3 days and prn. Apply Cavilon Skin Barrier to L heel. Cover with Optifoam drsg. Change every 7 days and prn. Reposition at least every 2hours or as tolerated. Elevate both lower ext with pillow.
[2019-08-18 16:00] VITALS: BP 119/70
[2019-08-18] MEDS: Lisinopril 20mg tab ORAL SCH (18:55)
--- NOTE | 2019-08-18 19:24 | NUR ---
NURSE NOTES: Received pt from WARDROBE MANAGERSHEMAR MASTERS at 1430, pt is awake and alert. pt is in RA, No SOB or acute respiratory distress noted. pt has intact iv access L wrist 22g is running well. RN called Dr BANEGAS several times and he finally called back at 1730 and gave me admission orders. all admission assessments and instructions done and pt verbally confirmed to understand all. RN asked from pt and her private cattle care worker Heidi for past medical history and home medications. pt has wound on sacral, R HEEL, R upper toes stage 2 and left upper toes stage 1, Dr BANEGAS and wound nurse notified and treatment done as order and took pictures and up loaded. Dr BANEGAS know about WBC 4.6 and other lab results and V/S. all needs attended, bed is locked and is in the lowest position, call light within easy reach. will continue to monitor. Report given to MAIN/EMMIE STATON.
--- NOTE | 2019-08-18 19:26 | Infectious Diseases Prog Note ---
Assessment/Plan Assessment/Plan Full consult dictated: A) uti ms catheter P) meropenem check urine culture thank you Subjective Allergies: Coded Allergies: SULFA (SULFONAMIDE ANTIBIOTICS) (Verified Allergy, Unknown, 11/22/17) Objective Vital Signs Last 24 Hour Vital Signs Date Time Temp Pulse Resp B/P (MAP) Pulse Ox O2 Delivery O2 Flow Rate FiO2 08/18/19 18:55 119/70 08/18/19 16:00 98.2 83 20 119/70 (86) 98 08/18/19 14:30 Room Air 08/18/19 14:15 98.4 77 20 131/63 (85) 99 08/18/19 14:05 98.4 86 18 128/84 99 Room Air 08/18/19 09:32 97.5 87 18 148/79 97 Room Air 08/18/19 09:02 97.5 85 18 155/77 (103) 97 Room Air Height (Feet): 5 Height (Inches): 8.00 Weight (Pounds): 230 Laboratory Tests Test 08/18/19 10:00 08/18/19 10:30 White Blood Count 4.6 K/UL (4.8-10.8) L Red Blood Count 4.95 M/UL (4.20-5.40) Hemoglobin 13.4 G/DL (12.0-16.0) Hematocrit 41.8 % (37.0-47.0) Mean Corpuscular Volume 84 FL (80-99) Mean Corpuscular Hemoglobin 27.1 PG (27.0-31.0) Mean Corpuscular Hemoglobin Concent 32.1 G/DL (32.0-36.0) Red Cell Distribution Width 16.8 % (11.6-14.8) H Platelet Count 272 K/UL (150-450) Mean Platelet Volume 8.3 FL (6.5-10.1) Neutrophils (%) (Auto) 62.2 % (45.0-75.0) Lymphocytes (%) (Auto) 27.6 % (20.0-45.0) Monocytes (%) (Auto) 8.1 % (1.0-10.0) Eosinophils (%) (Auto) 1.5 % (0.0-3.0) Basophils (%) (Auto) 0.7 % (0.0-2.0) Prothrombin Time 10.0 SEC (9.30-11.50) Prothromb Time International Ratio 0.9 (0.9-1.1) Activated Partial Thromboplast Time 27 SEC (23-33) Sodium Level 141 MMOL/L (136-145) Potassium Level 4.6 MMOL/L (3.5-5.1) Chloride Level 105 MMOL/L (98-107) Carbon Dioxide Level 33 MMOL/L (21-32) H Anion Gap 3 mmol/L (5-15) L Blood Urea Nitrogen 15 mg/dL (7-18) Creatinine 0.5 MG/DL (0.55-1.30) L Estimat Glomerular Filtration Rate mL/min (>60) Glucose Level 85 MG/DL (74-106) Calcium Level 9.4 MG/DL (8.5-10.1) Total Bilirubin 0.3 MG/DL (0.2-1.0) Aspartate Amino Transf (AST/SGOT) 27 U/L (15-37) Alanine Aminotransferase (ALT/SGPT) 38 U/L (12-78) Alkaline Phosphatase 132 U/L (46-116) H Total Protein 8.4 G/DL (6.4-8.2) H Albumin 3.1 G/DL (3.4-5.0) L Globulin 5.3 g/dL Albumin/Globulin Ratio 0.6 (1.0-2.7) L Urine Color Yellow Urine Appearance Clear Urine pH 7 (4.5-8.0) Urine Specific [place] 1.005 (1.005-1.035) Urine Protein 3+ (NEGATIVE) H Urine Glucose (UA) Negative (NEGATIVE) Urine Ketones Negative (NEGATIVE) Urine Blood 3+ (NEGATIVE) H Urine Nitrite Positive (NEGATIVE) H Urine Bilirubin Negative (NEGATIVE) Urine Urobilinogen Normal MG/DL (0.0-1.0) Urine Leukocyte Esterase 3+ (NEGATIVE) H Urine RBC 5-10 /HPF (0 - 2) H Urine WBC 20-30 /HPF (0 - 2) H Urine Squamous Epithelial Cells Few /LPF (NONE/OCC) Urine Bacteria Few /HPF (NONE) Current Medications Medications (Trade) Dose Ordered Sig/Mj Route PRN Reason Start Time Stop Time Status Last Admin Dose Admin Amlodipine Besylate (Norvasc) 5 mg DAILY ORAL 08/19/19 09:00 09/18/19 08:59 Atorvastatin Calcium (Lipitor) 40 mg BEDTIME ORAL 08/18/19 21:00 09/17/19 20:59 Baclofen (Lioresal) 10 mg TIDPRN PRN ORAL muscle spasm 08/18/19 18:00 09/17/19 17:59 Clonidine HCl (Catapres Tab) 0.1 mg Q12HR ORAL 08/18/19 21:00 09/17/19 20:59 Heparin Sodium (Porcine) (Heparin 5000 units/ml) 5,000 units EVERY 12 HOURS SUBQ 08/18/19 21:00 09/17/19 20:59 Lisinopril (Prinivil) 20 mg BID ORAL 08/18/19 18:00 09/17/19 17:59 08/18/19 18:55 Meropenem 1 gm/ Sodium Chloride 100 ml @ 200 mls/hr Q8HR IVPB 08/18/19 22:00 08/23/19 21:59 Metformin HCl (Glucophage) 500 mg BIAC ORAL 08/19/19 06:30 09/18/19 06:29 Non-Formulary Medication (Non-Formulary Med) 1 ea EVERY OTHER DAY ORAL 08/19/19 09:00 09/18/19 08:59 UNV Pantoprazole (Protonix) 40 mg BIAC ORAL 08/19/19 06:30 09/18/19 06:29 Potassium Chloride (K-Dur) 20 meq DAILY ORAL 08/19/19 09:00 09/18/19 08:59 Sodium Chloride 1,000 ml @ 50 mls/hr Q20H IV 08/18/19 18:00 09/17/19 17:59 08/18/19 18:54 Tizanidine HCl (Zanaflex) 4 mg BEDTIME PRN ORAL for muscle spasms 08/18/19 18:00 09/17/19 17:59 Trazodone HCl (Desyrel) 100 mg BEDTIME ORAL 08/18/19 21:00 09/17/19 20:59 Carroll Miller MD Aug 18, 2019 19:26
--- NOTE | 2019-08-18 19:38 | NUR ---
NURSE NOTES: Received patient on bed, awake and verbally responsive. denies any pain or discomfort. respirations even and unlabored. NO SOB. bed locked and in lowest position. call light and light button within easy reach.will continue plan of care.
[2019-08-18 20:00] VITALS: BP 153/86
[2019-08-18] MEDS: TraZODone 100mg tab ORAL SCH (21:19)
[2019-08-18] MEDS: Atorvastatin 20mg tab ORAL SCH (21:19)
[2019-08-18] MEDS: Heparin 5000 units/ml inj SUBQ SCH (21:24)
--- NOTE | 2019-08-18 21:45 | Consultation ---
DATE OF CONSULTATION: 08/18/2019 INFECTIOUS DISEASE CONSULTATION CONSULTING PHYSICIAN: Carroll Miller M.D. ATTENDING PHYSICIAN: Víctor Cheema M.D. REFERRING PHYSICIAN: Víctor Cheema M.D. REASON FOR CONSULTATION: Complicated urinary tract infection, altered mental status. CHIEF COMPLAINT: The patient's chief complaint coming to the hospital is altered mental status, history of multiple sclerosis, likely complicated UTI, positive urinalysis. HISTORY OF PRESENT ILLNESS: This is a very pleasant 74-year-old female who comes in to [facility] with history of multiple sclerosis and paraplegia and neurogenic bladder. The patient has a catheter. The patient history of urinary tract infection, previous UTI with E. coli. The patient has likely complicated UTI with altered mental status. Infectious Disease consultation is requested. The patient was placed on meropenem pending urine culture for complicated UTI. The patient seems to be more alert compared to in the ER. She seems to be fairly oriented at this time. REVIEW OF SYSTEMS: Main issue is the paraplegia secondary to multiple sclerosis, weakness, and catheter. She has no seizure activity.HEAD AND NECK: No headache or neck stiffness. CARDIAC: No chest pain. GASTROINTESTINAL: No nausea, vomiting, or diarrhea. GENITOURINARY: She has a catheter. PULMONARY: No congestion or shortness of breath. SKIN: No rash. Wounds were reviewed. NEUROLOGIC: No seizures. No mention of night sweats or weight loss. PAST MEDICAL HISTORY: The patient's past medical history includes the following. The patient has a past medical history of multiple sclerosis. She has history of paraplegia, weakness, UTIs, wounds. She has history of CHF, history of hypertension, diabetes. She has history of hyperlipidemia. ALLERGIES: Sulfa drugs. SOCIAL HISTORY: Negative for smoking, alcohol, or drug use. FAMILY HISTORY: Noncontributory. MEDICATIONS: Upon reviewing the MAR, she is on following medications. She is on amlodipine. She is on medication. Metformin, pantoprazole, meropenem, atorvastatin, clonidine, trazodone, heparin, baclofen, lisinopril, Zanaflex. Outside medications noted and reconciliated. PHYSICAL EXAMINATION: VITAL SIGNS: Temperature is 98.2, pulse 83, respiratory rate 20, blood pressure 119/70, saturation 98%. GENERAL: Alert, responsive. No distress. HEAD AND NECK: Oral exam, no thrush. Normocephalic. Neck is supple. No icterus. HEART: Regular rate and rhythm. ABDOMEN: Soft. Positive bowel sounds. Nontender. LUNGS: Clear bilaterally. No rhonchi or rales. SKIN: No rash. MUSCULOSKELETAL: No effusions. Legs are without cellulitis. PERIPHERAL VASCULAR: No gangrene. GENITOURINARY: She has a catheter. Urine is cloudy. LINE SITES: Without phlebitis. NEUROLOGIC: General weakness. Paraplegia. Responsive and oriented. LABORATORY DATA: White count 4.6, hemoglobin 13.4. Creatinine is 0.5. Urinalysis had 3+ leukocyte esterase and 23 white blood cells. Urine culture pending. IMAGING STUDIES: The patient had a head CT, which showed no acute intracranial disease. ASSESSMENT AND PLAN: 1. The patient has complicated UTI with history of multiple sclerosis and catheter. She came in with altered mental status and has history of urinary tract infection at risk for MDR organisms. At this time, we will continue meropenem for gram-negative coverage. Continue meropenem for complicated UTI with weakness, altered mental status. Check urine culture. 2. Hyperlipidemia. 3. Multiple sclerosis. 4. Paraplegia. 5. Catheter. 6. Wound care protocol. Wounds do not look acutely infected. 7. Diabetes. 8. Hypertension. 9. CHF. 10. Blood sugar and blood pressure treatment per primary care team for diabetes and hypertension. 11. Allergies to sulfa drugs. 12. Social history negative. 13. Family history noncontributory. 14. MAR was noted. 15. Case discussed with RN. 16. Continue treatment per primary consultants. 17. Notes and records were noted. Orders were entered. Carroll Miller M.D. DR: FABIAN JOB#: [id number] CC:
[2019-08-19] VITALS (7 sets, daily range): BP systolic 128–142; BP diastolic 55–79
[2019-08-19] MEDS: metFORMIN 500mg tab ORAL SCH ×2 (05:35→16:30)
[2019-08-19 07:15] LABS: BASOPHILS % (AUTO) 0.6 % (0.0-2.0); EOSINOPHILS % (AUTO) 1.7 % (0.0-3.0); HEMATOCRIT 37.3 % (37.0-47.0); HEMOGLOBIN 12.1 G/DL (12.0-16.0); LYMPHOCYTES % (AUTO) 22.7 % (20.0-45.0); MEAN CORPUSCULAR VOLUME 84 FL (80-99); MONOCYTES % (AUTO) 6.3 % (1.0-10.0); NEUTROPHILS % (AUTO) 68.7 % (45.0-75.0); PLATELET COUNT 267 K/UL (150-450); RED BLOOD COUNT 4.42 M/UL (4.20-5.40); RED CELL DISTRIBUTION WIDTH 16.1 % (11.6-14.8); WHITE BLOOD COUNT 5.5 K/UL (4.8-10.8)
[2019-08-19 07:23] LABS: ANION GAP 6 mmol/L (5-15); BLOOD UREA NITROGEN 16 mg/dL (7-18); CALCIUM 9.2 MG/DL (8.5-10.1); CARBON DIOXIDE 31 MMOL/L (21-32); CHLORIDE 105 MMOL/L (98-107); CREATININE 0.5 MG/DL (0.55-1.30); POTASSIUM 3.9 MMOL/L (3.5-5.1); SODIUM 142 MMOL/L (136-145)
--- NOTE | 2019-08-19 07:33 | NUR ---
HAND-OFF: Report given to BERNADETTE BUCKLEY RN.
--- NOTE | 2019-08-19 07:50 | NUR ---
NURSE NOTES: Patient is awake and alert,respirations unlabored.IV fluids infusing as ordered..Supra pubic catheter is in place and draining clear puneet color urine.breakfast at bedside assist patient.Bed alarm is on.
[2019-08-19] MEDS: Heparin 5000 units/ml inj SUBQ SCH ×2 (10:10→21:00)
[2019-08-19] MEDS: Lisinopril 20mg tab ORAL SCH ×2 (10:12→18:22)
--- NOTE | 2019-08-19 15:38 | NUR ---
CASE MANAGEMENT: INITIAL REVIEW 74 YO M BLAZE FROM HOME CC: CURRIE X 3 DAYS PMHx: CHF. MS. HTN. DM. SI:UTI. T 97.5 HR 85 RR 18 B/P 155/75 SATS 97% ON RA WBC 4.6 CO2 33 CR 0.5 ALP 132 IS: CT HEAD Impression: Negative for acute intracranial bleed or mass effect PATIENT ADMITTED TO MED/SURG 08/18/2019 @ 1144 DCP: PATIENT TO BE DISCHARGED TO HOME ONCE MEDICALLY CLEARED. 08/19/2019 SI:GRAM NEG MICHAEL UTI. T 98.2 HR 95 RR 19 B/P 136/72 SATS 93% ON RA CR 0.5 IS: NS @ 50 mL/HR LIPITOR PO QHS TRAZODONE PO QHS METFORMIN PO BIAC LISINOPRIL PO BID K DUR PO QD MEROPENEM IV Q8H MED/SURG DCP: PATIENT TO BE DISCHARGED TO HOME ONCE MEDICALLY CLEARED. Addendum: 08/19/19 at 1643 by Allison Donaldson CM [employer]
[2019-08-19] MEDS ORDERED: BETASERON 0.3 MG SUBQ SCH (16:00)
--- NOTE | 2019-08-19 18:36 | NUR ---
NURSE NOTES: Patient resting,IV continue to infuse as ordered. Tolerated meals,turned and position,skin care given.Barrios catheter remains intact.Bed alarm on.
--- NOTE | 2019-08-19 19:00 | History and Physical Report ---
DATE OF ADMISSION: 08/18/2019 HISTORY OF PRESENT ILLNESS: This is a 74-year-old female with advanced multiple sclerosis, paraplegia, aneurysm pattern. She is brought to the hospital with a change in mental status. Apparently, she was hallucinating. The patient reported an unusual history to the ER physician, which is documented. Per discussion with the ER physician, who then called the patient's primary care physician at [facility] that this typically happens when she has an infection. She has a chronic Barrios, which was changed recently. The patient was seen overnight by Dr. Carroll Miller, Infectious Disease specialist, who diagnosed her with complicated urinary tract infection and started her on meropenem. PAST MEDICAL HISTORY: Notable for paraplegia, multiple sclerosis, congestive heart failure, hypertension, diabetes mellitus, and hyperlipidemia. ALLERGIES: Sulfa. HOME MEDICATIONS: Include amlodipine, Lipitor, baclofen, clonidine, Prinivil, Glucophage, Protonix, potassium, and Zanaflex, as well as trazodone. REVIEW OF SYSTEMS: Denies any headaches, hematemesis, melena, hematochezia, night sweats, or weight loss. PHYSICAL EXAMINATION: GENERAL: Reveals a 74-year-old female. She has bilateral upper extremity contractures as well as lower extremity contractures. She has paraplegia. She is awake and responsive. VITAL SIGNS: Blood pressure is 130/60, heart rate is 94, and respirations are 18. She is afebrile. HEENT: Otherwise unremarkable. LUNGS: Clear breath sounds bilaterally with normal heart sounds. ABDOMEN: Soft. EXTREMITIES: There is no edema. LABORATORY DATA: Lab testing shows pyuria, positive leukocyte esterase, and nitrites. Chemistries are unremarkable. Albumin is 3.1. PT/INR is negative. CBC is normal. IMAGING STUDIES: Head CT was obtained yesterday, which was unremarkable except for old white matter infarct. IMPRESSION: 1. Altered mental status. 2. UTI. 3. Paraplegia. 4. Multiple sclerosis. 5. Hyperlipidemia. 6. Hypertension. 7. Diabetes mellitus. 8. Mild protein-calorie malnutrition. DISCUSSION: 1. Admit to the hospital. 2. We will start intravenous meropenem. 3. Resume home medications. 4. Start IV fluids. 5. DVT prophylaxis. 6. Provide diabetic diet. 7. Await cultures. 8. ID consult appreciated. Víctor Cheema M.D. DR: OSWALDO JOB#: [id number] CC:
--- NOTE | 2019-08-19 19:51 | NUR ---
HAND-OFF: Report given to Omaira STATON.
--- NOTE | 2019-08-19 19:54 | NUR ---
NURSE NOTES: Received patient on bed, awake,alert and and verbally responsive. Breathing on room air. no acute distress noted. Denies any pain or discomfort. IV patent and asymptomatic. Bed locked and in lowest position. call light and light within easy reach.will continue plan of care.
[2019-08-19] MEDS: TraZODone 100mg tab ORAL SCH (20:58)
[2019-08-19] MEDS: Atorvastatin 20mg tab ORAL SCH (20:59)
[2019-08-20] VITALS: BP 145/86
[2019-08-20 04:00] VITALS: BP 145/79
[2019-08-20] MEDS: metFORMIN 500mg tab ORAL SCH (06:30)
--- NOTE | 2019-08-20 06:32 | NUR ---
NURSE NOTES: Pt refused Metformin @ 06;30. despite of education and encouragement pt refused medication.
--- NOTE | 2019-08-20 07:10 | NUR ---
HAND-OFF: Report given to SHEMAR Nunes.
--- NOTE | 2019-08-20 07:48 | NUR ---
NURSE NOTES: Patient is alert and oriented,respirations unlabored.IV fluids infusing as ordered.Supra pubic catheter in place and draining puneet color urine.Breakfast at bedside will assist patient.Bed alarm on.
[2019-08-20 08:00] VITALS: BP 137/75
[2019-08-20] MEDS: Heparin 5000 units/ml inj SUBQ SCH (09:08)
[2019-08-20] MEDS: Lisinopril 20mg tab ORAL SCH (09:10)
--- NOTE | 2019-08-20 10:31 | Pulmonology Progress Note ---
Assessment/Plan Assessment/Plan IMPRESSION: 1. Altered mental status. 2. UTI. Pseudomonas 3. Paraplegia. 4. Multiple sclerosis. 5. Hyperlipidemia. 6. Hypertension. 7. Diabetes mellitus. 8. Mild protein-calorie malnutrition. DISCUSSION: DC home on PO Cipro Víctor Cheema M.D. Subjective Interval Events: None new Constitutional: Reports: no symptoms HEENT: Repors: no symptoms Respiratory: Reports: no symptoms Cardiovascular: Reports: no symptoms Gastrointestinal/Abdominal: Reports: no symptoms Genitourinary: Reports: no symptoms Allergies: Coded Allergies: SULFA (SULFONAMIDE ANTIBIOTICS) (Verified Allergy, Unknown, 11/22/17) Objective Last 24 Hour Vital Signs Date Time Temp Pulse Resp B/P (MAP) Pulse Ox O2 Delivery O2 Flow Rate FiO2 08/20/19 10:09 Room Air 08/20/19 09:10 131/53 08/20/19 09:09 131/53 08/20/19 09:09 88 131/53 08/20/19 08:00 96.9 19 137/75 (95) 93 08/20/19 04:00 99.0 78 20 145/79 (101) 96 08/20/19 00:00 98.2 88 20 145/86 (105) 95 08/19/19 21:00 Room Air 08/19/19 20:59 138/74 08/19/19 20:00 98.2 98 19 138/74 (95) 95 08/19/19 18:22 131/55 08/19/19 16:00 98.3 93 19 137/70 (92) 93 08/19/19 12:00 98.2 95 19 136/72 (93) 93 Intake and Output 08/19/19 08/20/19 19:00 07:00 Intake Total 1120 ml 420 ml Output Total 300 ml 450 ml Balance 820 ml -30 ml Intake Oral 720 ml 420 ml IV Total 400 ml Output Urine Total 300 ml 450 ml # Bowel Movements 1 General Appearance: no acute distress HEENT: normocephalic Respiratory/Chest: chest wall non-tender, lungs clear Cardiovascular: normal peripheral pulses, normal rate Abdomen: normal bowel sounds Microbiology Date/Time Source Procedure Growth Status 08/18/19 10:30 Urine,Clean Catch Urine Culture - Final Pseudomonas Aeruginosa Complete Current Medications Medications (Trade) Dose Ordered Sig/Mj Route PRN Reason Start Time Stop Time Status Last Admin Dose Admin Amlodipine Besylate (Norvasc) 5 mg DAILY ORAL 08/19/19 09:00 09/18/19 08:59 08/20/19 09:09 Atorvastatin Calcium (Lipitor) 40 mg BEDTIME ORAL 08/18/19 21:00 09/17/19 20:59 08/19/19 20:59 Baclofen (Lioresal) 10 mg TIDPRN PRN ORAL muscle spasm 08/18/19 18:00 09/17/19 17:59 08/20/19 06:14 Clonidine HCl (Catapres Tab) 0.1 mg Q12HR ORAL 08/18/19 21:00 09/17/19 20:59 08/20/19 09:09 Heparin Sodium (Porcine) (Heparin 5000 units/ml) 5,000 units EVERY 12 HOURS SUBQ 08/18/19 21:00 09/17/19 20:59 08/20/19 09:08 Lisinopril (Prinivil) 20 mg BID ORAL 08/18/19 18:00 09/17/19 17:59 08/20/19 09:10 Meropenem 1 gm/ Sodium Chloride 100 ml @ 200 mls/hr Q8HR IVPB 08/18/19 22:00 08/23/19 21:59 08/20/19 05:33 Metformin HCl (Glucophage) 500 mg BIAC ORAL 08/19/19 06:30 09/18/19 06:29 08/19/19 05:35 Pantoprazole (Protonix) 40 mg BIAC ORAL 08/19/19 06:30 09/18/19 06:29 08/20/19 06:10 Patient Own Medication (Patient's Own Med) 1 ea EVERY OTHER DAY SUBQ 08/19/19 16:00 09/18/19 15:59 08/19/19 14:51 Potassium Chloride (K-Dur) 20 meq DAILY ORAL 08/19/19 09:00 09/18/19 08:59 08/20/19 09:09 Sodium Chloride 1,000 ml @ 50 mls/hr Q20H IV 08/18/19 18:00 09/17/19 17:59 08/19/19 17:01 Tizanidine HCl (Zanaflex) 4 mg BEDTIME PRN ORAL for muscle spasms 08/18/19 18:00 09/17/19 17:59 Trazodone HCl (Desyrel) 100 mg BEDTIME ORAL 08/18/19 21:00 09/17/19 20:59 08/19/19 20:58 Víctor Cheema MD Aug 20, 2019 10:31
[2019-08-20] MEDS ORDERED: CIPRO500 MG/51 PO (10:34)
[2019-08-20 12:00] VITALS: BP 143/70
--- NOTE | 2019-08-20 14:02 | NUR ---
NURSE NOTES: [facility] ambulance here to transfer patient home. [employer] is at patient home,.IV removed,ID hospital band removed.[employer] has patient belongings, health care coach was here earlier today.Patient supra pubic catheter remains in place.Discharge instructions given to patient and health care coach.[employer] has discharge prescription.
--- NOTE | 2019-08-21 19:49 | Discharge Summary ---
Discharge Summary Discharge Summary _ DATE OF ADMISSION: 08/18/2019 DATE OF DISCHARGE: 08/20/2019 DISCHARGED BY: Dr. Miranda Cheema CONSULTANTS: Dr. Carroll Bridges BRIEF HOSPITAL COURSE: Patient is a 74-year-old female with advanced multiple sclerosis, paraplegia, CHF, hypertension, diabetes mellitus, hyperlipidemia, was brought to the hospital due to change in mental status. Apparently patient was hallucinating. Patient has chronic Barrios which was recently changed. Upon evaluation at the ED, blood work did not show any leukocytosis. Hemoglobin and hematocrit were stable. Electrolytes were normal. Kidney function normal. LFTs normal. Urinalysis showed 20-30 urine WBC, 5-10 urine RBC, 2+ leukocyte esterase, positive nitrite. CT scan of the head did not show any acute findings. She was given meropenem. She was admitted for evaluation of encephalopathy and UTI. Infectious disease specialist was consulted. Patient has previous UTI with E. coli. She was continued on meropenem. She was continued on home medications. Urine culture showed growth of Pseudomonas sensitive to ciprofloxacin. She was then cleared for discharge home to continue p.o. antibiotics. FINAL DIAGNOSES: Acute encephalopathy Pseudomonas UTI Paraplegia Multiple sclerosis Hyperlipidemia Hypertension Diabetes mellitus Mild protein calorie malnutrition DISPOSITION: Patient was discharged home. DISCHARGE MEDICATIONS: Refer to Discharge Medication List. DISCHARGE INSTRUCTIONS: Follow-up in a week. I have been assigned to complete a discharge summary on this account, I was not involved with the patient's management.--MARCELO Blandon Jacqueline Robles NP Aug 21, 2019 19:49
== END 2019-08-20 14:17 | disposition home or self-care (01) | DRG 690 ==
LOC: EDBD 09:08 → EMR 10:05 → 4E 11:44 → OBSVTOIN 11:44 → EDBEDREQ 12:54
DX: N39.0 Urinary tract infection, site not specified (principal); G82.20 Paraplegia, unspecified; E44.1 Mild protein-calorie malnutrition; G93.40 Encephalopathy, unspecified; G35 Multiple sclerosis; I11.0 Hypertensive heart disease with heart failure; I50.9 Heart failure, unspecified; E78.5 Hyperlipidemia, unspecified; E11.9 Type 2 diabetes mellitus without complications; Z79.84 Long term (current) use of oral hypoglycemic drugs; B96.5 Pseudomonas (aeruginosa) (mallei) (pseudomallei) as the cause of diseases classified elsewhere; Z88.2 Allergy status to sulfonamides
CPT/HCPCS: 36415; 70450; 80048; 80053; 81003; 82962; 85025; 85610; 85730; 87086; 87181; 93005; 96365; 99285; J8499

== ENCOUNTER 2019-08-25 07:37 | Inpatient (IN) | payer OTHER, MEDICAID ==
[~2019-08-25] VITALS: Ht 172.7 cm; Wt 106.1 kg
[~2019-08-25 07:37] MED LIST changes: +ALBUTEROL2.5 MG/3 M INH; +AMLODIPINE BESYL5 MG ORAL; +ASCORBIC ACID500 MG ORAL; +ATORVASTATIN CA40 MG ORAL; +CIPRO500 MG/51 PO; +DULCOLAX10 MG RC; +FERROUS SULFAT325 MG ORAL; +METHENAMINE1 GM MC; +MONTELUKAST SOD10 MG ORAL; +QVAR7.3 GM INH; +ZINC SULFATE220 M1 ORAL
[2019-08-25 07:45] VITALS: BP 149/86
[2019-08-25] MEDS ORDERED: REBIF44 MCG/0.5 SUBQ (07:56)
[2019-08-25] MEDS ORDERED: Methocarbamol 500mg tab ORAL ONE (08:00)
--- NOTE | 2019-08-25 08:05 | Emergency Room Report ---
History of Present Illness General Chief Complaint: Back Pain-No Injury Source: Patient Present Illness HPI Disclaimer: Please note that this report is being documented using DRAGON technology. This can lead to erroneous entry secondary to incorrect interpretation by the dictating instrument. HPI: 74-year-old female with history of multiple sclerosis, paraplegia, bedbound , diabetes, obesity presents for evaluation of back pain. Patient states she awoke approximately 5 AM complaining of pain in the mid back wrapping around both sides like a band. Denies any radiation down the legs. There is no injury. The patient is bedbound. She was recently discharged 3 days ago for encephalopathy secondary to urinary tract infection. She has been taking her ciprofloxacin. She noted a red rash over her abdomen that does not hurt, or itch. No skin breakdown or bleeding or discharge. Also notes that she has been having hallucinations. She states she thought people were in her house trying to kidnap her and that they are rodents around as well. Suprapubic catheter is in place. She has been taking her ciprofloxacin. Her PMD states this is a very abnormal behavior for her. PMH: Obesity, multiple sclerosis, paraplegia, diabetes, Pseudomonas UTI, hypertension, hyperlipidemia PSH: Reviewed Allergies: Sulfa Social Hx: None Allergies: Coded Allergies: SULFA (SULFONAMIDE ANTIBIOTICS) (Verified Allergy, Unknown, 11/22/17) Nursing Documentation-PMH Past Medical History: No History, Except For Hx Cardiac Problems: Yes - CHF, MS Hx Hypertension: Yes Hx Diabetes: Yes Hx Cancer: No Hx Gastrointestinal Problems: Yes - GERD,NONALCOHOLIC FATTY LIVER, Hx Multiple Sclerosis: Yes - with paraplegia Review of Systems All Other Systems: negative except mentioned in HPI Physical Exam Vital Signs Date Time Temp Pulse Resp B/P (MAP) Pulse Ox O2 Delivery O2 Flow Rate FiO2 08/25/19 07:41 97.5 74 16 149/86 (107) 98 Room Air General: Awake and alert, morbidly obese bedbound female HEENT: NC/AT. EOMI. Cardiovascular: RRR. S1 and S2 normal. No murmur appreciated Resp: Normal work of breathing. No cough, wheezing or crackles appreciated Abdomen: Abdomen is soft, nondistended. Morbidly obese. Nontender. Suprapubic catheter in place. Skin: There is a slightly raised urticarial-like rash over the abdomen that is blanching. Nikolsky negative, no desquamation, no breakdown, no bleeding, no vesicles, no ulcers MSK: Normal tone and bulk. Lower extremities held in extension. Upper extremities in contraction. Neuro: Awake and alert. Mentating appropriately. Decreased sensation over the extremities and abdomen. Back/Spine: No midline tenderness in the cervical, thoracic or lumbosacral spine. Moderate paraspinal pain in the mid thoracic and lower thoracic region bilaterally. Medical Decision Making Diagnostic Impression: Primary Impression: UTI (urinary tract infection) Additional Impressions: Hallucination Back pain Constipation Rash ER Course 74-year-old female presents for evaluation of back pain, reported altered mental status and rash after starting ciprofloxacin to treat a Pseudomonas urinary tract infection on last hospital admission. She arrives with stable vital signs. She has bilateral paraspinal pain but no midline pain and there is no injury reported. Likely musculoskeletal in nature and possible muscle spasm. Will treat with lidocaine patches and Robaxin. She will require further evaluation of her acute changes in mental status. While this may be left over from her urinary tract infection we will repeat labs will also send blood cultures as I discussed with her PMD, Dr. Dawkins at [facility], who states this is very bizarre for the patient. Normally, she is very conversant and intelligent person who has full insight into her medical history and only had episodes of hallucination with severe sepsis. One instance of sepsis was from bacteremia and another from a wound infection. Chronic sacral decubitus ulcer however it appears well closed and she follows regularly with wound care. No signs of active infection. Will send broad labs again and send blood cultures. Require admission for encephalopathy. Will also send for an MRI of the spine to rule out new lesions. Laboratory Tests Test 08/25/19 08:40 08/25/19 09:00 08/25/19 10:41 White Blood Count 4.1 K/UL (4.8-10.8) L Red Blood Count 4.76 M/UL (4.20-5.40) Hemoglobin 13.0 G/DL (12.0-16.0) Hematocrit 40.5 % (37.0-47.0) Mean Corpuscular Volume 85 FL (80-99) Mean Corpuscular Hemoglobin 27.3 PG (27.0-31.0) Mean Corpuscular Hemoglobin Concent 32.2 G/DL (32.0-36.0) Red Cell Distribution Width 16.3 % (11.6-14.8) H Platelet Count 325 K/UL (150-450) Mean Platelet Volume 7.8 FL (6.5-10.1) Neutrophils (%) (Auto) 47.9 % (45.0-75.0) Lymphocytes (%) (Auto) 38.6 % (20.0-45.0) Monocytes (%) (Auto) 9.7 % (1.0-10.0) Eosinophils (%) (Auto) 2.9 % (0.0-3.0) Basophils (%) (Auto) 0.9 % (0.0-2.0) Sodium Level 140 MMOL/L (136-145) Potassium Level 4.2 MMOL/L (3.5-5.1) Chloride Level 104 MMOL/L (98-107) Carbon Dioxide Level 30 MMOL/L (21-32) Anion Gap 6 mmol/L (5-15) Blood Urea Nitrogen 16 mg/dL (7-18) Creatinine 0.6 MG/DL (0.55-1.30) Estimate Glomerular Filtration Rate mL/min (>60) Glucose Level 91 MG/DL (74-106) Calcium Level 9.5 MG/DL (8.5-10.1) Total Bilirubin 0.4 MG/DL (0.2-1.0) Aspartate Amino Transferase (AST) 25 U/L (15-37) Alanine Aminotransferase (ALT) 36 U/L (12-78) Alkaline Phosphatase 139 U/L (46-116) H Total Protein 8.4 G/DL (6.4-8.2) H Albumin 3.0 G/DL (3.4-5.0) L Globulin 5.4 g/dL Albumin/Globulin Ratio 0.6 (1.0-2.7) L Urine Color Pale yellow Urine Appearance Clear Urine pH 6 (4.5-8.0) Urine Specific [place] 1.005 (1.005-1.035) Urine Protein 3+ (NEGATIVE) H Urine Glucose (UA) Negative (NEGATIVE) Urine Ketones Negative (NEGATIVE) Urine Blood 3+ (NEGATIVE) H Urine Nitrite Negative (NEGATIVE) Urine Bilirubin Negative (NEGATIVE) Urine Urobilinogen Normal MG/DL (0.0-1.0) Urine Leukocyte Esterase 3+ (NEGATIVE) H Urine RBC 5-10 /HPF (0 - 2) H Urine WBC 10-15 /HPF (0 - 2) H Urine Squamous Epithelial Cells Few /LPF (NONE/OCC) Urine Bacteria Moderate /HPF (NONE) H Ammonia < 10 umol/L (11-32) L Reevaluation Time: 12:41 Last Vital Signs Date Time Temp Pulse Resp B/P (MAP) Pulse Ox O2 Delivery O2 Flow Rate FiO2 08/25/19 07:41 97.5 74 16 149/86 (107) 98 Room Air Reevaluation Impression MRI of the thoracic and lumbar spine does not show any evidence of abscess, no signal changes in the spinal cord, no enhancing lesions or other pathology appreciated. Labs show a white count within normal limits, normal renal function , balanced electrolytes, negative ammonia. Urinalysis again shows 3+ leukocyte esterase, 10-15 white cells and moderate bacteria. This was obtained from the suprapubic catheter. Was treated with Zosyn. Patient will be readmitted for encephalopathy given her persistent hallucinations at home. She is behaving appropriately in the emergency department at this time. Disposition: ADMITTED INPATIENT Condition: Serious Artem Hinton MD Aug 25, 2019 08:05
[2019-08-25] MEDS ORDERED: Gadavist 7.5mMol/7.5ml vial IV PRN (08:45)
[2019-08-25 09:24] LABS: APPEARANCE,URINE CLEAR; BILIRUBIN, URINE NEGATIVE (NEGATIVE); COLOR,URINE PALE YELLOW; GLUCOSE, URINE (UA) NEGATIVE (NEGATIVE); KETONES,URINE NEGATIVE (NEGATIVE); LEUKOCYTE ESTERASE ,URINE 3+ (NEGATIVE); NITRITE,URINE NEGATIVE (NEGATIVE); PH,URINE 6 (4.5-8.0); PROTEIN,URINE 3+ (NEGATIVE); UROBILINOGEN,URINE NORMAL MG/DL (0.0-1.0)
[2019-08-25 09:31] LABS: ANION GAP 6 mmol/L (5-15); BLOOD UREA NITROGEN 16 mg/dL (7-18); CALCIUM 9.5 MG/DL (8.5-10.1); CARBON DIOXIDE 30 MMOL/L (21-32); CHLORIDE 104 MMOL/L (98-107); CREATININE 0.6 MG/DL (0.55-1.30); POTASSIUM 4.2 MMOL/L (3.5-5.1); SODIUM 140 MMOL/L (136-145)
[2019-08-25 09:34] LABS: BASOPHILS % (AUTO) 0.9 % (0.0-2.0); EOSINOPHILS % (AUTO) 2.9 % (0.0-3.0); HEMATOCRIT 40.5 % (37.0-47.0); LYMPHOCYTES % (AUTO) 38.6 % (20.0-45.0); MEAN CORPUSCULAR VOLUME 85 FL (80-99); MONOCYTES % (AUTO) 9.7 % (1.0-10.0); NEUTROPHILS % (AUTO) 47.9 % (45.0-75.0); PLATELET COUNT 325 K/UL (150-450); RED BLOOD COUNT 4.76 M/UL (4.20-5.40); RED CELL DISTRIBUTION WIDTH 16.3 % (11.6-14.8); WHITE BLOOD COUNT 4.1 K/UL (4.8-10.8)
[2019-08-25 09:36] LABS: ALANINE AMINOTRANSFERASE 36 U/L (12-78); ALBUMIN/GLOBULIN RATIO 0.6 (1.0-2.7); ALKALINE PHOSPHATASE 139 U/L (46-116); ASPARTATE AMINO TRANSFERASE 25 U/L (15-37); BILIRUBIN,TOTAL 0.4 MG/DL (0.2-1.0)
[2019-08-25] MEDS ORDERED: Piperacillin/Tazobactam 3.375 GM in NS 110 ML IVPB ONE (11:30)
[2019-08-25] MEDS ORDERED: Zosyn 3.375gm inj ONE (12:02)
[2019-08-25 12:13] VITALS: BP 143/73
[2019-08-25 14:32] VITALS: BP 118/72
--- NOTE | 2019-08-25 15:23 | Diagnostic Imaging Report ---
. Indication: Spinal pain, history of multiple sclerosis Technique: Sagittal T1 fast spin-echo, sagittal T2 FRFSE, sagittal STIR, axial T2 FRFSE, axial T1, pre and postcontrast axial and sagittal T1 fat-saturated images obtained of the thoracic spine Comparison: none Findings: Questionable subtle areas of cord signal heterogeneity in increased T2 signal intensity are seen in the lower cervical and upper thoracic cord on the sagittal T2-weighted images, not corroborated on the axial T2-weighted images. The postcontrast sagittal images suggest the presence of an enhancing plaque at the C6 level. No other unusual contrast enhancement is demonstrated. The upper thoracic cord appears diffusely somewhat atrophic. No vertebral marrow signal abnormality is demonstrated. There is upper thoracic kyphotic deformity, but no compression fracture deformity is demonstrated. There is degenerative narrowing and possibly some ankylosis of the T7-T8 disc. No significant disc bulge or protrusion, spinal stenosis, or neural foraminal narrowing demonstrated. There are small bilateral pleural effusions incidentally noted. Impression: Findings suspicious for enhancing plaque in the lower cervical spine at about the C6 level. This represents a discrepancy from the [facility] preliminary report; discrepant findings phoned to Dr. Hinton in the emergency room at the time of interpretation There may be other areas of nonenhancing subtle T2 signal abnormality in the cervical and upper thoracic spine, but this is not conclusive No evidence of significant neural impingement No acute bony trauma Small bilateral pleural effusions incidentally noted
--- NOTE | 2019-08-25 15:40 | Diagnostic Imaging Report ---
Indication: Reason For Exam: PAIN Technique: Sagittal T1 FLAIR PROPELLER, sagittal T2 PROPELLER, sagittal STIR axial T2 PROPELLER, axial T1, axial T2 PROPELLER disc cut, pre-and postcontrast sagittal T1 fat-saturated, post contrast axial T1 fat saturated images of the lumbar spine Comparison: none Findings: Only limited segment of the spinal cord is included in the imaging volume. Spinal cord terminates at the L1 level. No area of T2 signal abnormality or definite enhancing plaque demonstrated in the visualized cord or the cauda equina. The vertebral marrow signal is normal. Vertebral body heights are preserved. The disc spaces are preserved. No abnormal vertebral body enhancement demonstrated. No significant disc bulge or protrusion, spinal stenosis, or neural foraminal stenosis demonstrated. There is multilevel disc desiccation noted. Facet arthrosis, particularly in the lower lumbar spine The included extra spinal soft tissues are unremarkable. Impression: No acute or significant abnormality demonstrated Minimal degenerative changes, as noted This agrees with the preliminary interpretation provided overnight by [facility] teleradiology service.
[2019-08-25 16:00] VITALS: BP 126/56
[2019-08-25] MEDS ORDERED: Miralax 17gm pkt ORAL PRN (16:45)
[2019-08-25] MEDS: metFORMIN 500mg tab ORAL SCH (18:08)
[2019-08-25] MEDS ORDERED: HYDROcodone/Acetamin 5/325 tab ORAL PRN (18:30)
[2019-08-25] MEDS ORDERED: Morphine Sulfate 2mg/ml Inj(IV/IM USE ONLY) IVP PRN (19:00)
[2019-08-25 20:00] VITALS: BP 151/75
[2019-08-25] MEDS ORDERED: Ciprofloxacin 500mg tab ORAL SCH (21:00)
[2019-08-25] MEDS: Piperacillin/Tazobactam 3.375 GM in NS 110 ML IVPB SCH (21:26)
[2019-08-25] MEDS: TraZODone 100mg tab ORAL SCH (21:27)
[2019-08-25] MEDS: Atorvastatin 20mg tab ORAL SCH (21:28)
[2019-08-25] MEDS: Heparin 5000 units/ml inj SUBQ SCH (21:31)
[2019-08-25] MEDS: Lisinopril 20mg tab ORAL SCH (21:31)
[2019-08-26] VITALS: BP 116/59
[2019-08-26 04:00] VITALS: BP 104/88
[2019-08-26] MEDS: Piperacillin/Tazobactam 3.375 GM in NS 110 ML IVPB SCH ×3 (06:00→21:45)
[2019-08-26 08:00] VITALS: BP 132/55
[2019-08-26 08:15] LABS: BASOPHILS % (AUTO) 1.7 % (0.0-2.0); EOSINOPHILS % (AUTO) 3.4 % (0.0-3.0); HEMATOCRIT 35.3 % (37.0-47.0); HEMOGLOBIN 11.3 G/DL (12.0-16.0); LYMPHOCYTES % (AUTO) 34.4 % (20.0-45.0); MEAN CORPUSCULAR VOLUME 86 FL (80-99); MONOCYTES % (AUTO) 7.2 % (1.0-10.0); NEUTROPHILS % (AUTO) 53.3 % (45.0-75.0); PLATELET COUNT 227 K/UL (150-450); RED BLOOD COUNT 4.12 M/UL (4.20-5.40); RED CELL DISTRIBUTION WIDTH 16.7 % (11.6-14.8); WHITE BLOOD COUNT 5.8 K/UL (4.8-10.8)
[2019-08-26] MEDS: Pantoprazole Inj IVP SCH (08:21)
[2019-08-26 08:24] LABS: ALANINE AMINOTRANSFERASE 30 U/L (12-78); ALBUMIN 2.8 G/DL (3.4-5.0); ALBUMIN/GLOBULIN RATIO 0.6 (1.0-2.7); ALKALINE PHOSPHATASE 120 U/L (46-116); ANION GAP 5 mmol/L (5-15); ASPARTATE AMINO TRANSFERASE 23 U/L (15-37); BILIRUBIN,TOTAL 0.4 MG/DL (0.2-1.0); BLOOD UREA NITROGEN 22 mg/dL (7-18); CALCIUM 9.4 MG/DL (8.5-10.1); CARBON DIOXIDE 30 MMOL/L (21-32); CHLORIDE 105 MMOL/L (98-107); CREATININE 0.7 MG/DL (0.55-1.30); POTASSIUM 4.3 MMOL/L (3.5-5.1); SODIUM 140 MMOL/L (136-145)
[2019-08-26] MEDS: Lisinopril 20mg tab ORAL SCH ×2 (08:27→21:00)
[2019-08-26] MEDS: Zinc Sulfate 220mg cap ORAL SCH (08:27)
[2019-08-26] MEDS: Ascorbic Acid 500mg tab ORAL SCH (08:28)
[2019-08-26] MEDS: metFORMIN 500mg tab ORAL SCH ×2 (08:28→17:06)
[2019-08-26] MEDS: Heparin 5000 units/ml inj SUBQ SCH ×2 (08:34→21:46)
[2019-08-26] MEDS ORDERED: Furosemide 40mg tab ORAL SCH (09:00)
[2019-08-26 12:00] VITALS: BP 130/59
--- NOTE | 2019-08-26 12:01 | History and Physical Report ---
DATE OF ADMISSION: 08/25/2019 HISTORY OF PRESENT ILLNESS: This is a 74-year-old female with history of multiple sclerosis, paraplegia, bed-bound status, diabetes mellitus, obesity, who presented with apparently episodes of hallucination. The patient has been discharged from the hospital last week with diagnosis Pseudomonas UTI. She was discharged on Cipro. The patient now reports that in the past also she had some sort of a reaction to Cipro, but that was many years ago. Apparently, the patient was found to be hallucinating. She also has a rash over her lower abdomen, which is not itchy and not painful. At this time, this morning, she states she is feeling significantly better. PAST HISTORY: Obesity, multiple sclerosis, paraplegia, diabetes mellitus, recent Pseudomonas UTI, hypertension, hyperlipidemia. SURGERIES: None reported. ALLERGIES: Sulfa. SOCIAL HISTORY: None reported. HOME MEDICATIONS: Reviewed and reconciled in the chart. REVIEW OF SYSTEMS: Denies any headaches, hematemesis, melena, or hematochezia. PHYSICAL EXAMINATION: VITAL SIGNS: Blood pressure is 140/80, heart rate , respirations , she is afebrile. GENERAL: Reveals a 74-year-old female. HEENT: Unremarkable. LUNGS: Clear breath sounds bilaterally. ABDOMEN: Soft. Lower abdomen reveals a red erythematous rash in the right lower quadrant and infraumbilical. EXTREMITIES: The patient has bilateral upper extremity atrophy and contractures, same is for lower extremity. LABORATORY DATA: Lab testing shows normal CBC and BMP. Hemoglobin 11.3. Alkaline phosphatase 120. Albumin 2.8. IMAGING STUDIES: The patient underwent lumbar and thoracic spine last night, which showed only degeneration and no other pathology was reported. IMPRESSION: 1. Toxic metabolic encephalopathy, improved. 2. Recent Pseudomonas UTI. 3. Lower abdominal rash. 4. Multiple sclerosis. DISCUSSION: Admit to the hospital. We will discontinue Cipro. We will start Zosyn empirically. I suspect she may have had a drug reaction, possibly delayed to Cipro. We will continue other home medications. Anticipate discharge home in the next 24 to 48 hours if well. Discussed with the patient. We will consult ID. Víctor Cheema M.D. DR: GUSTAVO JOB#: [id number] CC:
[2019-08-26] MEDS ORDERED: Vancomycin 750mg/D5W 275ml IVPB SCH ×2 (13:00)
[2019-08-26] MEDS: Montelukast 10mg tablet ORAL SCH ×2 (15:43→17:06)
[2019-08-26] MEDS ORDERED: DiphenhydrAMINE 50mg/ml Inj IVP PRN (15:45)
[2019-08-26 16:01] VITALS: BP 115/60
--- NOTE | 2019-08-26 17:52 | Infectious Diseases Prog Note ---
Assessment/Plan Assessment/Plan ASSESSMENT AND PLAN: 1. gram neg uti, ? gram + bacteremia, + bc, ? sepsis, hx pseudomonas uti, rash - vancomycin and ? cipro - zosyn and zyvox - check cultures - check labs 2. Hyperlipidemia. 3. Multiple sclerosis. 4. Paraplegia. 5. Catheter. 6. Wound care protocol. Wounds do not look acutely infected. 7. Diabetes. 8. Hypertension. 9. CHF. 10. Blood sugar and blood pressure treatment per primary care team for diabetes and hypertension. 11. Allergies to sulfa drugs - possible vancomycin and cipro allergies with rash 12. Social history negative. 13. Family history noncontributory. 14. MAR was noted. 15. Case discussed with RN. 16. Continue treatment per primary consultants. 17. Notes and records were noted. Orders were entered. Subjective Constitutional: Denies: fever HEENT: Denies: congestion Respiratory: Denies: shortness of breath Cardiovascular: Denies: chest pain Gastrointestinal/Abdominal: Denies: nausea, vomiting, diarrhea Genitourinary: Reports: other - + sp catheter Neurologic: Reports: weakness Psychiatric: Denies: depression Skin: Reports: other - + rash with vancomycin Hematologic: Denies: bleeding Musculoskeletal: Denies: pain Allergies: Coded Allergies: VANCOMYCIN (Verified Allergy, Intermediate, Itching, 08/26/19) SULFA (SULFONAMIDE ANTIBIOTICS) (Verified Allergy, Unknown, 11/22/17) Objective Vital Signs Last 24 Hour Vital Signs Date Time Temp Pulse Resp B/P (MAP) Pulse Ox O2 Delivery O2 Flow Rate FiO2 08/26/19 16:01 99.0 82 18 115/60 (78) 95 08/26/19 13:23 98.0 08/26/19 12:00 97.5 67 19 130/59 (82) 96 08/26/19 09:00 Room Air 08/26/19 08:28 71 132/55 08/26/19 08:27 132/55 08/26/19 08:00 97.7 71 18 132/55 (80) 98 08/26/19 04:00 98.0 68 21 104/88 (93) 97 08/26/19 00:00 97.9 70 20 116/59 (78) 96 08/25/19 21:31 151/75 08/25/19 21:00 Room Air 08/25/19 20:00 97.4 88 20 151/75 (100) 95 Height (Feet): 5 Height (Inches): 8.00 Weight (Pounds): 240 General Appearance: no acute distress HEENT: normocephalic, atraumatic, anicteric, mucous membranes moist Respiratory/Chest: lungs clear, normal breath sounds, no respiratory distress, no accessory muscle use Cardiovascular: normal rate, regular rhythm, no gallop/murmur, no JVD Abdomen: normal bowel sounds, soft, non tender, no organomegaly, non distended Genitourinary: other - + sp catheter - urine slt cloudy Extremities: no cyanosis Skin: rash - rash with vancomycin - ? 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, alert, responsive, motor weakness Lymphatic: no neck adenopathy Musculoskeletal: no effusion Objective noted Microbiology Date/Time Source Procedure Growth Status 08/25/19 08:55 Blood Blood Culture - Preliminary Resulted 08/25/19 08:40 Blood Blood Culture - Preliminary Resulted 08/25/19 09:00 Urine,Clean Catch Urine Culture - Preliminary Gram Negative Shashi Resulted 08/25/19 08:40 Rectum Received blood cultures - gram + , id pending Laboratory Tests Test 08/26/19 06:25 White Blood Count 5.8 K/UL (4.8-10.8) Red Blood Count 4.12 M/UL (4.20-5.40) L Hemoglobin 11.3 G/DL (12.0-16.0) L Hematocrit 35.3 % (37.0-47.0) L Mean Corpuscular Volume 86 FL (80-99) Mean Corpuscular Hemoglobin 27.4 PG (27.0-31.0) Mean Corpuscular Hemoglobin Concent 32.0 G/DL (32.0-36.0) Red Cell Distribution Width 16.7 % (11.6-14.8) H Platelet Count 227 K/UL (150-450) Mean Platelet Volume 6.3 FL (6.5-10.1) L Neutrophils (%) (Auto) 53.3 % (45.0-75.0) Lymphocytes (%) (Auto) 34.4 % (20.0-45.0) Monocytes (%) (Auto) 7.2 % (1.0-10.0) Eosinophils (%) (Auto) 3.4 % (0.0-3.0) H Basophils (%) (Auto) 1.7 % (0.0-2.0) Sodium Level 140 MMOL/L (136-145) Potassium Level 4.3 MMOL/L (3.5-5.1) Chloride Level 105 MMOL/L (98-107) Carbon Dioxide Level 30 MMOL/L (21-32) Anion Gap 5 mmol/L (5-15) Blood Urea Nitrogen 22 mg/dL (7-18) H Creatinine 0.7 MG/DL (0.55-1.30) Estimat Glomerular Filtration Rate mL/min (>60) Glucose Level 92 MG/DL (74-106) Calcium Level 9.4 MG/DL (8.5-10.1) Total Bilirubin 0.4 MG/DL (0.2-1.0) Aspartate Amino Transf (AST/SGOT) 23 U/L (15-37) Alanine Aminotransferase (ALT/SGPT) 30 U/L (12-78) Alkaline Phosphatase 120 U/L (46-116) H Total Protein 7.7 G/DL (6.4-8.2) Albumin 2.8 G/DL (3.4-5.0) L Globulin 4.9 g/dL Albumin/Globulin Ratio 0.6 (1.0-2.7) L Current Medications Medications (Trade) Dose Ordered Sig/Mj Route PRN Reason Start Time Stop Time Status Last Admin Dose Admin Acetaminophen (Tylenol) 650 mg Q4H PRN ORAL Mild Pain/Temp > 100.5 08/25/19 16:45 09/24/19 16:44 08/25/19 18:11 Acetaminophen/ Hydrocodone Bitart ([place] 5/325) 1 tab Q6H PRN ORAL Moderate Pain (Pain Scale 4-6) 08/25/19 19:15 09/01/19 18:29 Amlodipine Besylate (Norvasc) 5 mg DAILY ORAL 08/26/19 09:00 09/25/19 08:59 08/26/19 08:28 Ascorbic Acid (Vitamin C) 500 mg DAILY ORAL 08/26/19 09:00 09/25/19 08:59 08/26/19 08:28 Atorvastatin Calcium (Lipitor) 40 mg BEDTIME ORAL 08/25/19 21:00 09/24/19 20:59 08/25/19 21:28 Baclofen (Lioresal) 10 mg THREE TIMES A DAY ORAL 08/25/19 18:00 09/24/19 17:59 08/26/19 17:06 Bisacodyl (Dulcolax) 10 mg DAILYPRN PRN RECTAL Constipation 08/25/19 16:45 09/24/19 16:44 Diphenhydramine HCl (Benadryl) 25 mg Q12H PRN IVP Itching 08/26/19 17:45 09/25/19 17:44 Ferrous Sulfate (Feosol) 325 mg DAILY ORAL 08/26/19 09:00 09/25/19 08:59 08/26/19 08:27 Furosemide (Lasix) 40 mg DAILY ORAL 08/26/19 09:00 09/25/19 08:59 08/26/19 08:27 Gadobutrol (Gadavist) 7.5 mmol NOW PRN IV Radiology Procedure 08/25/19 08:45 08/29/19 08:34 Heparin Sodium (Porcine) (Heparin 5000 units/ml) 5,000 units EVERY 12 HOURS SUBQ 08/25/19 21:00 09/24/19 20:59 08/26/19 08:34 Lidocaine (Lidoderm 5% PATCH) 2 patch DAILY TDERMAL 08/25/19 09:00 09/24/19 08:59 08/26/19 08:35 Lisinopril (Prinivil) 20 mg Q12HR ORAL 08/25/19 21:00 09/24/19 20:59 08/26/19 08:27 Metformin HCl (Glucophage) 500 mg TWICE A DAY ORAL 08/25/19 18:00 09/24/19 17:59 08/26/19 17:06 Montelukast Sodium (Singulair) 10 mg QPM ORAL 08/26/19 16:30 09/25/19 16:29 08/26/19 17:06 Morphine Sulfate (Morphine Sulfate) 0.5 mg Q4H PRN IVP Severe Pain (Pain Scale 7-10) 08/25/19 19:00 09/01/19 18:59 Pantoprazole (Protonix) 40 mg DAILY IVP 08/26/19 09:00 09/25/19 08:59 08/26/19 08:21 Piperacillin Sod/ Tazobactam Sod 3.375 gm/Sodium Chloride 110 ml @ 27.5 mls/hr EVERY 8 HOURS IVPB 08/25/19 22:00 08/30/19 21:59 08/26/19 15:27 Polyethylene Glycol (Miralax) 17 gm DAILYPRN PRN ORAL Constipation 08/25/19 16:45 09/24/19 16:44 Potassium Chloride (K-Dur) 20 meq DAILY ORAL 08/26/19 09:00 09/25/19 08:59 08/26/19 08:28 Tizanidine HCl (Zanaflex) 4 mg THREE TIMES A DAY ORAL 08/25/19 20:00 09/24/19 19:59 08/26/19 17:06 Trazodone HCl (Desyrel) 100 mg BEDTIME ORAL 08/25/19 21:00 09/24/19 20:59 08/25/19 21:27 Vancomycin HCl (Vanco rx to dose) 1 ea DAILY PRN MISC Per rx protocol 08/26/19 11:45 09/25/19 11:44 Vancomycin HCl 750 mg/Dextrose 275 ml @ 183.333 mls/hr Q12H IVPB 08/26/19 13:00 08/31/19 12:59 08/26/19 13:44 Zinc Sulfate (Zinc Sulfate) 220 mg DAILY ORAL 08/26/19 09:00 09/25/19 08:59 08/26/19 08:27 Carroll Miller MD Aug 26, 2019 17:51
[2019-08-26 20:00] VITALS: BP 110/59
[2019-08-26] MEDS: Atorvastatin 20mg tab ORAL SCH (21:45)
[2019-08-26] MEDS: TraZODone 100mg tab ORAL SCH (21:45)
[2019-08-26] MEDS: DiphenhydrAMINE 50mg/ml Inj IVP PRN (22:25)
[2019-08-27] VITALS: BP 126/75
[2019-08-27 04:00] VITALS: BP 113/57
[2019-08-27] MEDS: Piperacillin/Tazobactam 3.375 GM in NS 110 ML IVPB SCH ×3 (05:47→22:28)
[2019-08-27 07:36] LABS: BASOPHILS % (AUTO) 1.1 % (0.0-2.0); EOSINOPHILS % (AUTO) 4.3 % (0.0-3.0); HEMATOCRIT 37.2 % (37.0-47.0); HEMOGLOBIN 11.9 G/DL (12.0-16.0); LYMPHOCYTES % (AUTO) 33.3 % (20.0-45.0); MEAN CORPUSCULAR VOLUME 86 FL (80-99); MONOCYTES % (AUTO) 8.1 % (1.0-10.0); NEUTROPHILS % (AUTO) 53.3 % (45.0-75.0); PLATELET COUNT 321 K/UL (150-450); RED BLOOD COUNT 4.33 M/UL (4.20-5.40); RED CELL DISTRIBUTION WIDTH 16.4 % (11.6-14.8); WHITE BLOOD COUNT 5.4 K/UL (4.8-10.8)
[2019-08-27 08:00] VITALS: BP 147/68
[2019-08-27 08:25] LABS: ALANINE AMINOTRANSFERASE 26 U/L (12-78); ALBUMIN 2.7 G/DL (3.4-5.0); ALBUMIN/GLOBULIN RATIO 0.6 (1.0-2.7); ALKALINE PHOSPHATASE 120 U/L (46-116); ANION GAP 11 mmol/L (5-15); ASPARTATE AMINO TRANSFERASE 23 U/L (15-37); BILIRUBIN,TOTAL 0.4 MG/DL (0.2-1.0); BLOOD UREA NITROGEN 25 mg/dL (7-18); CALCIUM 9.4 MG/DL (8.5-10.1); CARBON DIOXIDE 26 MMOL/L (21-32); CHLORIDE 105 MMOL/L (98-107); CREATININE 0.8 MG/DL (0.55-1.30); POTASSIUM 4.5 MMOL/L (3.5-5.1); SODIUM 142 MMOL/L (136-145)
[2019-08-27] MEDS: metFORMIN 500mg tab ORAL SCH ×2 (09:00→18:01)
[2019-08-27] MEDS: Zinc Sulfate 220mg cap ORAL SCH (09:23)
[2019-08-27] MEDS: Lisinopril 20mg tab ORAL SCH ×2 (09:25→21:00)
[2019-08-27] MEDS: Pantoprazole Inj IVP SCH (09:26)
[2019-08-27] MEDS: Ascorbic Acid 500mg tab ORAL SCH (09:26)
[2019-08-27] MEDS: Heparin 5000 units/ml inj SUBQ SCH ×2 (09:27→21:28)
--- NOTE | 2019-08-27 10:06 | Diagnostic Imaging Report ---
EXAM: XR Chest, 1 View CLINICAL HISTORY: INFECT TECHNIQUE: Frontal view of the chest. COMPARISON: None FINDINGS: Hardware: None. Lungs/pleura: Left basilar opacity. No pleural effusion or pneumothorax. Heart/mediastinum: Borderline size of the cardiac silhouette. Atherosclerotic Secretions in the aorta. Soft tissues: Unremarkable. Bones: No acute fracture. Upper abdomen: Normal. IMPRESSION: Left basilar opacity may represent atelectasis versus pneumonia.
[2019-08-27] MEDS: DiphenhydrAMINE 50mg/ml Inj IVP PRN (12:11)
--- NOTE | 2019-08-27 12:29 | Pulmonology Progress Note ---
Assessment/Plan Assessment/Plan IMPRESSION: 1. Toxic metabolic encephalopathy, improved. 2. Recent Pseudomonas UTI. 3. Lower abdominal rash. 4. Multiple sclerosis. DISCUSSION: I suspect she may have had a drug reaction,possibly delayed to Cipro. I will continue other home medications. Anticipate discharge home in the next 24 to 48 hours if well. Discussed with the patient. Seen by ID. On Zyvox and Zosyn Bacteremia noted Víctor Cheema M.D. Subjective Interval Events: No new events Constitutional: Reports: no symptoms HEENT: Repors: no symptoms Respiratory: Reports: no symptoms Cardiovascular: Reports: no symptoms Gastrointestinal/Abdominal: Reports: no symptoms Allergies: Coded Allergies: ACETAMINOPHEN (Unverified Allergy, Severe, Anaphylaxis, 08/27/19) per patient HYDROCODONE (Unverified Allergy, Severe, Anaphylaxis, 08/27/19) per patient MORPHINE (Unverified Allergy, Severe, Anaphylaxis, 08/27/19) per patient VANCOMYCIN (Verified Allergy, Intermediate, Itching, 08/26/19) With rash SULFA (SULFONAMIDE ANTIBIOTICS) (Verified Allergy, Unknown, 11/22/17) Objective Last 24 Hour Vital Signs Date Time Temp Pulse Resp B/P (MAP) Pulse Ox O2 Delivery O2 Flow Rate FiO2 08/27/19 09:25 147/68 08/27/19 09:25 87 147/68 08/27/19 04:00 97.9 64 23 113/57 (75) 98 08/27/19 00:00 97.7 82 19 126/75 (92) 98 08/26/19 21:00 110/59 08/26/19 21:00 Room Air 08/26/19 20:00 97.5 80 20 110/59 (76) 98 08/26/19 18:05 99.0 08/26/19 16:01 99.0 82 18 115/60 (78) 95 Intake and Output 08/26/19 08/27/19 18:59 06:59 Intake Total 1240.000 ml 1570.0 ml Output Total 550 ml 600 ml Balance 690.000 ml 970.0 ml Intake Oral 360 ml IV Total 440.000 ml 410.0 ml Other 800 ml 800 ml Output Urine Total 550 ml 600 ml # Bowel Movements 1 General Appearance: no acute distress HEENT: normocephalic Respiratory/Chest: chest wall non-tender Cardiovascular: normal peripheral pulses, normal rate Abdomen: normal bowel sounds Microbiology Date/Time Source Procedure Growth Status 08/25/19 08:55 Blood Blood Culture - Preliminary Staphylococcus Sp Coag Neg Resulted 08/25/19 08:40 Blood Blood Culture - Preliminary Staphylococcus Sp Coag Neg Resulted 08/25/19 08:40 Nasal Nares MRSA Culture - Final NO METHICILLIN RESISTANT STAPH AUREUS... Complete 08/25/19 09:00 Urine,Clean Catch Urine Culture - Final Escherichia Coli Complete 08/25/19 08:40 Rectum VRE Culture - Final NO VANCOMYCIN RESISTANT ENTEROCOCCUS ... Complete 08/25/19 08:40 Rectum - Final NO CARBAPENEM-RESISTANT ENTEROBACTERI... Complete Laboratory Tests 08/27/19 06:40: White Blood Count 5.4, Red Blood Count 4.33, Hemoglobin 11.9L, Hematocrit 37.2, Mean Corpuscular Volume 86, Mean Corpuscular Hemoglobin 27.5, Mean Corpuscular Hemoglobin Concent 32.1, Red Cell Distribution Width 16.4H, Platelet Count 321, Mean Platelet Volume 7.5, Neutrophils (%) (Auto) 53.3, Lymphocytes (%) (Auto) 33.3, Monocytes (%) (Auto) 8.1, Eosinophils (%) (Auto) 4.3H, Basophils (%) (Auto ) 1.1, Sodium Level 142, Potassium Level 4.5, Chloride Level 105, Carbon Dioxide Level 26, Anion Gap 11, Blood Urea Nitrogen 25H, Creatinine 0.8, Estimat Glomerular Filtration Rate , Glucose Level 92, Calcium Level 9.4, Total Bilirubin 0.4, Aspartate Amino Transf (AST/SGOT) 23, Alanine Aminotransferase ( ALT/SGPT) 26, Alkaline Phosphatase 120H, Pro-B-Type Natriuretic Peptide 30, Total Protein 7.6, Albumin 2.7L, Globulin 4.9, Albumin/Globulin Ratio 0.6L Current Medications Medications (Trade) Dose Ordered Sig/Mj Route PRN Reason Start Time Stop Time Status Last Admin Dose Admin Acetaminophen (Tylenol) 650 mg Q4H PRN ORAL Mild Pain/Temp > 100.5 08/25/19 16:45 09/24/19 16:44 08/26/19 22:12 Acetaminophen/ Hydrocodone Bitart ([place] 5/325) 1 tab Q6H PRN ORAL Moderate Pain (Pain Scale 4-6) 08/25/19 19:15 09/01/19 18:29 Amlodipine Besylate (Norvasc) 5 mg DAILY ORAL 08/26/19 09:00 09/25/19 08:59 08/27/19 09:25 Ascorbic Acid (Vitamin C) 500 mg DAILY ORAL 08/26/19 09:00 09/25/19 08:59 08/27/19 09:26 Atorvastatin Calcium (Lipitor) 40 mg BEDTIME ORAL 08/25/19 21:00 09/24/19 20:59 08/26/19 21:45 Baclofen (Lioresal) 10 mg THREE TIMES A DAY ORAL 08/25/19 18:00 09/24/19 17:59 08/27/19 09:24 Bisacodyl (Dulcolax) 10 mg DAILYPRN PRN RECTAL Constipation 08/25/19 16:45 09/24/19 16:44 Diphenhydramine HCl (Benadryl) 25 mg Q12H PRN IVP Itching 08/26/19 17:45 09/25/19 17:44 08/27/19 12:11 Ferrous Sulfate (Feosol) 325 mg DAILY ORAL 08/26/19 09:00 09/25/19 08:59 08/27/19 09:24 Gadobutrol (Gadavist) 7.5 mmol NOW PRN IV Radiology Procedure 08/25/19 08:45 08/29/19 08:34 Heparin Sodium (Porcine) (Heparin 5000 units/ml) 5,000 units EVERY 12 HOURS SUBQ 08/25/19 21:00 09/24/19 20:59 08/27/19 09:27 Lidocaine (Lidoderm 5% PATCH) 2 patch DAILY TDERMAL 08/25/19 09:00 09/24/19 08:59 08/27/19 09:22 Linezolid 300 ml @ 300 mls/hr EVERY 12 HOURS IVPB 08/26/19 20:00 09/02/19 19:59 08/27/19 10:34 Lisinopril (Prinivil) 20 mg Q12HR ORAL 08/25/19 21:00 09/24/19 20:59 08/27/19 09:25 Metformin HCl (Glucophage) 500 mg TWICE A DAY ORAL 08/25/19 18:00 09/24/19 17:59 08/26/19 17:06 Montelukast Sodium (Singulair) 10 mg QPM ORAL 08/26/19 16:30 09/25/19 16:29 08/26/19 17:06 Morphine Sulfate (Morphine Sulfate) 0.5 mg Q4H PRN IVP Severe Pain (Pain Scale 7-10) 08/25/19 19:00 09/01/19 18:59 Pantoprazole (Protonix) 40 mg DAILY IVP 08/26/19 09:00 09/25/19 08:59 08/27/19 09:26 Piperacillin Sod/ Tazobactam Sod 3.375 gm/Sodium Chloride 110 ml @ 27.5 mls/hr EVERY 8 HOURS IVPB 08/25/19 22:00 08/30/19 21:59 08/27/19 05:47 Polyethylene Glycol (Miralax) 17 gm DAILYPRN PRN ORAL Constipation 08/25/19 16:45 09/24/19 16:44 Tizanidine HCl (Zanaflex) 4 mg THREE TIMES A DAY ORAL 08/25/19 20:00 09/24/19 19:59 08/27/19 09:25 Trazodone HCl (Desyrel) 100 mg BEDTIME ORAL 08/25/19 21:00 09/24/19 20:59 08/26/19 21:45 Zinc Sulfate (Zinc Sulfate) 220 mg DAILY ORAL 08/26/19 09:00 09/25/19 08:59 08/27/19 09:23 Víctor Cheema MD Aug 27, 2019 12:29
[2019-08-27 16:00] VITALS: BP 101/54
[2019-08-27 20:00] VITALS: BP 110/57
[2019-08-27] MEDS: Atorvastatin 20mg tab ORAL SCH (21:27)
[2019-08-27] MEDS: TraZODone 100mg tab ORAL SCH (21:27)
[2019-08-28] VITALS: BP 118/63
[2019-08-28 04:00] VITALS: BP 127/64
[2019-08-28] MEDS: Piperacillin/Tazobactam 3.375 GM in NS 110 ML IVPB SCH ×3 (06:29→21:28)
[2019-08-28 08:00] VITALS: BP 144/72
[2019-08-28] MEDS: metFORMIN 500mg tab ORAL SCH ×2 (09:08→09:25)
[2019-08-28] MEDS: Pantoprazole Inj IVP SCH (09:09)
[2019-08-28] MEDS: Zinc Sulfate 220mg cap ORAL SCH (09:09)
[2019-08-28] MEDS: Ascorbic Acid 500mg tab ORAL SCH (09:09)
[2019-08-28] MEDS: Lisinopril 20mg tab ORAL SCH ×2 (09:10→20:27)
[2019-08-28] MEDS: Heparin 5000 units/ml inj SUBQ SCH ×2 (09:15→20:27)
[2019-08-28 12:00] VITALS: BP 140/86
--- NOTE | 2019-08-28 13:43 | Pulmonology Progress Note ---
Assessment/Plan Assessment/Plan IMPRESSION: 1. Toxic metabolic encephalopathy, improved. 2. Recent Pseudomonas UTI. Has another UTI now; resistant to Cipro 3. Lower abdominal rash. 4. Multiple sclerosis. DISCUSSION: I suspect she may have had a drug reaction,possibly delayed to Cipro. I will continue other home medications. Anticipate discharge home in the next 24 to 48 hours if well. Discussed with the patient. Seen by ID. On Zyvox and Zosyn Bacteremia noted Abx adjustments per ID Víctor Cheema M.D. Subjective Interval Events: None new Constitutional: Reports: no symptoms HEENT: Repors: no symptoms Respiratory: Reports: no symptoms Cardiovascular: Reports: no symptoms Gastrointestinal/Abdominal: Reports: no symptoms Allergies: Coded Allergies: ACETAMINOPHEN (Unverified Allergy, Severe, Anaphylaxis, 08/27/19) per patient HYDROCODONE (Unverified Allergy, Severe, Anaphylaxis, 08/27/19) per patient MORPHINE (Unverified Allergy, Severe, Anaphylaxis, 08/27/19) per patient VANCOMYCIN (Verified Allergy, Intermediate, Itching, 08/26/19) With rash SULFA (SULFONAMIDE ANTIBIOTICS) (Verified Allergy, Unknown, 11/22/17) Objective Last 24 Hour Vital Signs Date Time Temp Pulse Resp B/P (MAP) Pulse Ox O2 Delivery O2 Flow Rate FiO2 08/28/19 12:00 98.3 98 18 140/86 (104) 97 08/28/19 10:10 98.1 08/28/19 09:39 98.1 08/28/19 09:10 144/72 08/28/19 09:10 97 144/72 08/28/19 09:00 Room Air 08/28/19 08:00 98.1 97 19 144/72 (96) 95 08/28/19 04:00 97.4 84 19 127/64 (85) 98 08/28/19 00:00 97.6 81 19 118/63 (81) 97 08/27/19 21:00 Room Air 08/27/19 21:00 119/65 08/27/19 20:00 97.9 77 21 110/57 (74) 95 08/27/19 16:00 98.2 68 18 101/54 (70) 96 Intake and Output 08/27/19 08/28/19 19:00 07:00 Intake Total 1570.0 ml Output Total 900 ml 1600 ml Balance -900 ml -30.0 ml Intake Oral 360 ml IV Total 410.0 ml Other 800 ml Output Urine Total 900 ml 1600 ml # Voids 2 # Bowel Movements 1 General Appearance: no acute distress HEENT: normocephalic Respiratory/Chest: chest wall non-tender, lungs clear Cardiovascular: normal peripheral pulses, normal rate Current Medications Medications (Trade) Dose Ordered Sig/Mj Route PRN Reason Start Time Stop Time Status Last Admin Dose Admin Acetaminophen (Tylenol) 650 mg Q4H PRN ORAL Mild Pain/Temp > 100.5 08/25/19 16:45 09/24/19 16:44 08/28/19 09:09 Acetaminophen/ Hydrocodone Bitart ([place] 5/325) 1 tab Q6H PRN ORAL Moderate Pain (Pain Scale 4-6) 08/25/19 19:15 09/01/19 18:29 Amlodipine Besylate (Norvasc) 5 mg DAILY ORAL 08/26/19 09:00 09/25/19 08:59 08/28/19 09:10 Ascorbic Acid (Vitamin C) 500 mg DAILY ORAL 08/26/19 09:00 09/25/19 08:59 08/28/19 09:09 Atorvastatin Calcium (Lipitor) 40 mg BEDTIME ORAL 08/25/19 21:00 09/24/19 20:59 08/27/19 21:27 Baclofen (Lioresal) 10 mg THREE TIMES A DAY ORAL 08/25/19 18:00 09/24/19 17:59 08/28/19 09:08 Bisacodyl (Dulcolax) 10 mg DAILYPRN PRN RECTAL Constipation 08/25/19 16:45 09/24/19 16:44 Diphenhydramine HCl (Benadryl) 25 mg Q12H PRN IVP Itching 08/26/19 17:45 09/25/19 17:44 08/27/19 12:11 Ferrous Sulfate (Feosol) 325 mg DAILY ORAL 08/26/19 09:00 09/25/19 08:59 08/28/19 09:10 Gadobutrol (Gadavist) 7.5 mmol NOW PRN IV Radiology Procedure 08/25/19 08:45 08/29/19 08:34 Heparin Sodium (Porcine) (Heparin 5000 units/ml) 5,000 units EVERY 12 HOURS SUBQ 08/25/19 21:00 09/24/19 20:59 08/28/19 09:15 Lidocaine (Lidoderm 5% PATCH) 2 patch DAILY TDERMAL 08/25/19 09:00 09/24/19 08:59 08/28/19 09:14 Linezolid 300 ml @ 300 mls/hr EVERY 12 HOURS IVPB 08/26/19 20:00 09/02/19 19:59 08/28/19 10:59 Lisinopril (Prinivil) 20 mg Q12HR ORAL 08/25/19 21:00 09/24/19 20:59 08/28/19 09:10 Metformin HCl (Glucophage) 500 mg TWICE A DAY ORAL 08/25/19 18:00 09/24/19 17:59 08/27/19 18:01 Montelukast Sodium (Singulair) 10 mg QPM ORAL 08/26/19 16:30 09/25/19 16:29 08/26/19 17:06 Morphine Sulfate (Morphine Sulfate) 0.5 mg Q4H PRN IVP Severe Pain (Pain Scale 7-10) 08/25/19 19:00 09/01/19 18:59 Pantoprazole (Protonix) 40 mg DAILY IVP 08/26/19 09:00 09/25/19 08:59 08/28/19 09:09 Piperacillin Sod/ Tazobactam Sod 3.375 gm/Sodium Chloride 110 ml @ 27.5 mls/hr EVERY 8 HOURS IVPB 08/25/19 22:00 08/30/19 21:59 08/28/19 06:29 Polyethylene Glycol (Miralax) 17 gm DAILYPRN PRN ORAL Constipation 08/25/19 16:45 09/24/19 16:44 Tizanidine HCl (Zanaflex) 4 mg THREE TIMES A DAY ORAL 08/25/19 20:00 09/24/19 19:59 08/28/19 09:11 Trazodone HCl (Desyrel) 100 mg BEDTIME ORAL 08/25/19 21:00 09/24/19 20:59 08/27/19 21:27 Zinc Sulfate (Zinc Sulfate) 220 mg DAILY ORAL 08/26/19 09:00 09/25/19 08:59 08/28/19 09:09 Víctor Cheema MD Aug 28, 2019 13:43
[2019-08-28 16:00] VITALS: BP 95/51
--- NOTE | 2019-08-28 16:02 | Infectious Diseases Prog Note ---
Assessment/Plan Assessment/Plan ASSESSMENT AND PLAN: 1. 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 sepsis, ? aspiration pna/hcap vs atx, rash - vancomycin and ? cipro - zosyn and doxycycline - day # 3 abx - f/u on sc, surveillance blood cultures, labs and chest x-ray - rash stable 2. Hyperlipidemia. 3. Multiple sclerosis. 4. Paraplegia. 5. Catheter. 6. Wound care protocol. Wounds do not look acutely infected. 7. Diabetes. 8. Hypertension. 9. CHF. 10. Blood sugar and blood pressure treatment per primary care team for diabetes and hypertension. 11. Allergies to sulfa drugs - possible vancomycin and cipro allergies with rash 12. Social history negative. 13. Family history noncontributory. 14. MAR was noted. 15. Case discussed with RN. 16. Continue treatment per primary consultants. 17. Notes and records were noted. Orders were entered. Subjective Constitutional: Denies: fever HEENT: Denies: congestion Respiratory: Denies: shortness of breath Cardiovascular: Denies: chest pain Gastrointestinal/Abdominal: Denies: nausea, vomiting, diarrhea Genitourinary: Reports: other - + weber Neurologic: Denies: headache Psychiatric: Denies: depression Skin: Denies: rash Hematologic: Denies: bleeding Musculoskeletal: Denies: pain Allergies: Coded Allergies: ACETAMINOPHEN (Unverified Allergy, Severe, Anaphylaxis, 08/27/19) per patient HYDROCODONE (Unverified Allergy, Severe, Anaphylaxis, 08/27/19) per patient MORPHINE (Unverified Allergy, Severe, Anaphylaxis, 08/27/19) per patient VANCOMYCIN (Verified Allergy, Intermediate, Itching, 08/26/19) With rash SULFA (SULFONAMIDE ANTIBIOTICS) (Verified Allergy, Unknown, 11/22/17) Objective Vital Signs Last 24 Hour Vital Signs Date Time Temp Pulse Resp B/P (MAP) Pulse Ox O2 Delivery O2 Flow Rate FiO2 08/28/19 14:57 98.3 08/28/19 12:00 98.3 98 18 140/86 (104) 97 08/28/19 09:39 98.1 08/28/19 09:10 144/72 08/28/19 09:10 97 144/72 08/28/19 09:00 Room Air 08/28/19 08:00 98.1 97 19 144/72 (96) 95 08/28/19 04:00 97.4 84 19 127/64 (85) 98 08/28/19 00:00 97.6 81 19 118/63 (81) 97 08/27/19 21:00 Room Air 08/27/19 21:00 119/65 08/27/19 20:00 97.9 77 21 110/57 (74) 95 08/27/19 16:00 98.2 68 18 101/54 (70) 96 Height (Feet): 5 Height (Inches): 8.00 Weight (Pounds): 240 General Appearance: no acute distress HEENT: normocephalic, atraumatic, anicteric, supple, no JVD Respiratory/Chest: lungs clear, normal breath sounds, no respiratory distress, no accessory muscle use, crackles/rales - ? , rhonchi - bilaterally Cardiovascular: normal rate, regular rhythm, no gallop/murmur, no JVD Abdomen: normal bowel sounds, soft, non tender, no organomegaly, non distended Genitourinary: other - + weber - urine slt cloudy Extremities: no cyanosis Skin: rash - stable Neurologic/Psychiatric: surveyor II-XII grossly normal, alert, oriented x 3, responsive, motor weakness Lymphatic: no neck adenopathy Musculoskeletal: no effusion Objective Chest x-ray - 08/27/19 - IMPRESSION: Left basilar opacity may represent atelectasis versus pneumonia. Microbiology Date/Time Source Procedure Growth Status 08/25/19 08:55 Blood Blood Culture - Final Staphylococcus Epidermidis Complete 08/25/19 08:40 Nasal Nares MRSA Culture - Final NO METHICILLIN RESISTANT STAPH AUREUS... Complete 08/25/19 09:00 Urine,Clean Catch Urine Culture - Final Escherichia Coli Complete 08/25/19 08:40 Rectum VRE Culture - Final NO VANCOMYCIN RESISTANT ENTEROCOCCUS ... Complete Labs Test 08/26/19 06:25 08/27/19 06:40 White Blood Count 5.8 K/UL (4.8-10.8) 5.4 K/UL (4.8-10.8) Red Blood Count 4.12 M/UL (4.20-5.40) 4.33 M/UL (4.20-5.40) Hemoglobin 11.3 G/DL (12.0-16.0) 11.9 G/DL (12.0-16.0) Hematocrit 35.3 % (37.0-47.0) 37.2 % (37.0-47.0) Mean Corpuscular Volume 86 FL (80-99) 86 FL (80-99) Mean Corpuscular Hemoglobin 27.4 PG (27.0-31.0) 27.5 PG (27.0-31.0) Mean Corpuscular Hemoglobin Concent 32.0 G/DL (32.0-36.0) 32.1 G/DL (32.0-36.0) Red Cell Distribution Width 16.7 % (11.6-14.8) 16.4 % (11.6-14.8) Platelet Count 227 K/UL (150-450) 321 K/UL (150-450) Mean Platelet Volume 6.3 FL (6.5-10.1) 7.5 FL (6.5-10.1) Neutrophils (%) (Auto) 53.3 % (45.0-75.0) 53.3 % (45.0-75.0) Lymphocytes (%) (Auto) 34.4 % (20.0-45.0) 33.3 % (20.0-45.0) Monocytes (%) (Auto) 7.2 % (1.0-10.0) 8.1 % (1.0-10.0) Eosinophils (%) (Auto) 3.4 % (0.0-3.0) 4.3 % (0.0-3.0) Basophils (%) (Auto) 1.7 % (0.0-2.0) 1.1 % (0.0-2.0) Sodium Level 140 MMOL/L (136-145) 142 MMOL/L (136-145) Potassium Level 4.3 MMOL/L (3.5-5.1) 4.5 MMOL/L (3.5-5.1) Chloride Level 105 MMOL/L (98-107) 105 MMOL/L (98-107) Carbon Dioxide Level 30 MMOL/L (21-32) 26 MMOL/L (21-32) Anion Gap 5 mmol/L (5-15) 11 mmol/L (5-15) Blood Urea Nitrogen 22 mg/dL (7-18) 25 mg/dL (7-18) Creatinine 0.7 MG/DL (0.55-1.30) 0.8 MG/DL (0.55-1.30) Estimat Glomerular Filtration Rate mL/min (>60) mL/min (>60) Glucose Level 92 MG/DL (74-106) 92 MG/DL (74-106) Calcium Level 9.4 MG/DL (8.5-10.1) 9.4 MG/DL (8.5-10.1) Total Bilirubin 0.4 MG/DL (0.2-1.0) 0.4 MG/DL (0.2-1.0) Aspartate Amino Transf (AST/SGOT) 23 U/L (15-37) 23 U/L (15-37) Alanine Aminotransferase (ALT/SGPT) 30 U/L (12-78) 26 U/L (12-78) Alkaline Phosphatase 120 U/L (46-116) 120 U/L (46-116) Total Protein 7.7 G/DL (6.4-8.2) 7.6 G/DL (6.4-8.2) Albumin 2.8 G/DL (3.4-5.0) 2.7 G/DL (3.4-5.0) Globulin 4.9 g/dL 4.9 g/dL Albumin/Globulin Ratio 0.6 (1.0-2.7) 0.6 (1.0-2.7) Pro-B-Type Natriuretic Peptide 30 pg/mL (0-125) Current Medications Medications (Trade) Dose Ordered Sig/Mj Route PRN Reason Start Time Stop Time Status Last Admin Dose Admin Acetaminophen (Tylenol) 650 mg Q4H PRN ORAL Mild Pain/Temp > 100.5 08/25/19 16:45 09/24/19 16:44 08/28/19 09:09 Acetaminophen/ Hydrocodone Bitart ([place] 5/325) 1 tab Q6H PRN ORAL Moderate Pain (Pain Scale 4-6) 08/25/19 19:15 09/01/19 18:29 Amlodipine Besylate (Norvasc) 5 mg DAILY ORAL 08/26/19 09:00 09/25/19 08:59 08/28/19 09:10 Ascorbic Acid (Vitamin C) 500 mg DAILY ORAL 08/26/19 09:00 09/25/19 08:59 08/28/19 09:09 Atorvastatin Calcium (Lipitor) 40 mg BEDTIME ORAL 08/25/19 21:00 09/24/19 20:59 08/27/19 21:27 Baclofen (Lioresal) 10 mg THREE TIMES A DAY ORAL 08/25/19 18:00 09/24/19 17:59 08/28/19 13:57 Bisacodyl (Dulcolax) 10 mg DAILYPRN PRN RECTAL Constipation 08/25/19 16:45 09/24/19 16:44 Diphenhydramine HCl (Benadryl) 25 mg Q12H PRN IVP Itching 08/26/19 17:45 09/25/19 17:44 08/27/19 12:11 Ferrous Sulfate (Feosol) 325 mg DAILY ORAL 08/26/19 09:00 09/25/19 08:59 08/28/19 09:10 Gadobutrol (Gadavist) 7.5 mmol NOW PRN IV Radiology Procedure 08/25/19 08:45 08/29/19 08:34 Heparin Sodium (Porcine) (Heparin 5000 units/ml) 5,000 units EVERY 12 HOURS SUBQ 08/25/19 21:00 09/24/19 20:59 08/28/19 09:15 Lidocaine (Lidoderm 5% PATCH) 2 patch DAILY TDERMAL 08/25/19 09:00 09/24/19 08:59 08/28/19 09:14 Linezolid 300 ml @ 300 mls/hr EVERY 12 HOURS IVPB 08/26/19 20:00 09/02/19 19:59 08/28/19 10:59 Lisinopril (Prinivil) 20 mg Q12HR ORAL 08/25/19 21:00 09/24/19 20:59 08/28/19 09:10 Metformin HCl (Glucophage) 500 mg TWICE A DAY ORAL 08/25/19 18:00 09/24/19 17:59 08/27/19 18:01 Montelukast Sodium (Singulair) 10 mg QPM ORAL 08/26/19 16:30 09/25/19 16:29 08/26/19 17:06 Morphine Sulfate (Morphine Sulfate) 0.5 mg Q4H PRN IVP Severe Pain (Pain Scale 7-10) 08/25/19 19:00 09/01/19 18:59 Pantoprazole (Protonix) 40 mg DAILY IVP 08/26/19 09:00 09/25/19 08:59 08/28/19 09:09 Piperacillin Sod/ Tazobactam Sod 3.375 gm/Sodium Chloride 110 ml @ 27.5 mls/hr EVERY 8 HOURS IVPB 08/25/19 22:00 08/30/19 21:59 08/28/19 13:58 Polyethylene Glycol (Miralax) 17 gm DAILYPRN PRN ORAL Constipation 08/25/19 16:45 09/24/19 16:44 Tizanidine HCl (Zanaflex) 4 mg THREE TIMES A DAY ORAL 08/25/19 20:00 09/24/19 19:59 08/28/19 13:58 Trazodone HCl (Desyrel) 100 mg BEDTIME ORAL 08/25/19 21:00 09/24/19 20:59 08/27/19 21:27 Zinc Sulfate (Zinc Sulfate) 220 mg DAILY ORAL 08/26/19 09:00 09/25/19 08:59 08/28/19 09:09 Carroll Miller MD Aug 28, 2019 16:02
[2019-08-28] MEDS: Montelukast 10mg tablet ORAL SCH ×2 (16:30→17:35)
[2019-08-28 20:00] VITALS: BP 119/72
[2019-08-28] MEDS: TraZODone 100mg tab ORAL SCH ×2 (20:25→21:26)
[2019-08-28] MEDS: Atorvastatin 20mg tab ORAL SCH (20:25)
[2019-08-28] MEDS: HYDROcodone/Acetamin 5/325 tab ORAL PRN (21:26)
[2019-08-29 00:08] VITALS: BP 121/67
[2019-08-29 04:00] VITALS: BP 135/58
[2019-08-29] MEDS: Piperacillin/Tazobactam 3.375 GM in NS 110 ML IVPB SCH ×3 (05:20→21:39)
[2019-08-29 07:20] LABS: BASOPHILS % (AUTO) 1.5 % (0.0-2.0); EOSINOPHILS % (AUTO) 5.6 % (0.0-3.0); HEMATOCRIT 36.7 % (37.0-47.0); HEMOGLOBIN 11.9 G/DL (12.0-16.0); LYMPHOCYTES % (AUTO) 18.6 % (20.0-45.0); MEAN CORPUSCULAR VOLUME 85 FL (80-99); MONOCYTES % (AUTO) 9.5 % (1.0-10.0); NEUTROPHILS % (AUTO) 64.8 % (45.0-75.0); PLATELET COUNT 306 K/UL (150-450); RED BLOOD COUNT 4.29 M/UL (4.20-5.40); RED CELL DISTRIBUTION WIDTH 16.3 % (11.6-14.8); WHITE BLOOD COUNT 5.6 K/UL (4.8-10.8)
[2019-08-29 07:29] LABS: ALANINE AMINOTRANSFERASE 140 U/L (12-78); ALBUMIN 2.5 G/DL (3.4-5.0); ALBUMIN/GLOBULIN RATIO 0.5 (1.0-2.7); ALKALINE PHOSPHATASE 173 U/L (46-116); ANION GAP 9 mmol/L (5-15); ASPARTATE AMINO TRANSFERASE 100 U/L (15-37); BILIRUBIN,TOTAL 0.7 MG/DL (0.2-1.0); BLOOD UREA NITROGEN 16 mg/dL (7-18); CARBON DIOXIDE 28 MMOL/L (21-32); CHLORIDE 106 MMOL/L (98-107); CREATININE 0.5 MG/DL (0.55-1.30); POTASSIUM 3.9 MMOL/L (3.5-5.1); SODIUM 143 MMOL/L (136-145)
[2019-08-29 07:59] VITALS: BP 138/89
[2019-08-29] MEDS: Zinc Sulfate 220mg cap ORAL SCH (08:35)
[2019-08-29] MEDS: metFORMIN 500mg tab ORAL SCH ×3 (08:37→18:00)
[2019-08-29] MEDS: Ascorbic Acid 500mg tab ORAL SCH (08:38)
[2019-08-29] MEDS: Lisinopril 20mg tab ORAL SCH ×2 (08:39→21:13)
[2019-08-29] MEDS: Heparin 5000 units/ml inj SUBQ SCH ×2 (08:41→21:20)
[2019-08-29 12:00] VITALS: BP 125/59
--- NOTE | 2019-08-29 15:52 | Diagnostic Imaging Report ---
Indication: Abdominal pain Technique: Grayscale and duplex Doppler imaging of the abdomen performed. Comparison: None Findings: The liver is enlarged measuring about 19 cm. Complex cystic lesion demonstrated within the left lobe of the liver measuring about 2 cm. There is trace ascites. Doppler interrogation of the main portal vein shows patency with hepatopedal, monophasic flow. There is no biliary ductal dilatation identified. Gallbladder is notable for a stone. CBD is 3.6 mm. There demonstrated part of the pancreas, aorta and IVC show no definite abnormalities. Bilateral renal cysts noted. Small nonobstructive stone in the left kidney demonstrated. There is no hydronephrosis. IMPRESSION: Hepatomegaly. Trace ascites 2 cm complex cystic lesion within the left lobe of the liver. Bilateral renal cysts. Suspected nonobstructive stone in the left kidney. Cholelithiasis
[2019-08-29 16:00] VITALS: BP 129/69
[2019-08-29] MEDS: Montelukast 10mg tablet ORAL SCH (16:30)
--- NOTE | 2019-08-29 16:48 | Pulmonology Progress Note ---
Assessment/Plan Assessment/Plan IMPRESSION: 1. Toxic metabolic encephalopathy, improved. 2. Recent Pseudomonas UTI. Has another UTI now; resistant to Cipro 3. Lower abdominal rash. 4. Multiple sclerosis. 5. Abnormal LFT's; will consult GI DISCUSSION: I suspect she may have had a drug reaction,possibly delayed to Cipro. I will continue other home medications. Discussed with the patient. Seen by ID. On IV abx Bacteremia noted Abx adjustments per ID Víctor Cheema M.D. Subjective Interval Events: States she is feeling better Constitutional: Reports: no symptoms HEENT: Repors: no symptoms Respiratory: Reports: no symptoms Cardiovascular: Reports: no symptoms Gastrointestinal/Abdominal: Reports: no symptoms Allergies: Coded Allergies: ACETAMINOPHEN (Unverified Allergy, Severe, Anaphylaxis, 08/27/19) per patient HYDROCODONE (Unverified Allergy, Severe, Anaphylaxis, 08/27/19) per patient MORPHINE (Unverified Allergy, Severe, Anaphylaxis, 08/27/19) per patient VANCOMYCIN (Verified Allergy, Intermediate, Itching, 08/26/19) With rash SULFA (SULFONAMIDE ANTIBIOTICS) (Verified Allergy, Unknown, 11/22/17) Objective Last 24 Hour Vital Signs Date Time Temp Pulse Resp B/P (MAP) Pulse Ox O2 Delivery O2 Flow Rate FiO2 08/29/19 16:00 97.1 75 18 129/69 (89) 97 08/29/19 12:00 97.7 94 18 125/59 (81) 96 08/29/19 09:00 Room Air 08/29/19 08:39 138/89 08/29/19 08:38 81 138/89 08/29/19 07:59 97.6 81 18 138/89 (105) 99 08/29/19 04:00 97.3 75 12 135/58 (83) 96 08/29/19 00:08 97.7 73 18 121/67 (85) 94 08/28/19 21:56 96.8 08/28/19 21:00 Room Air 08/28/19 20:27 119/72 08/28/19 20:26 96.8 08/28/19 20:00 96.8 83 18 119/72 (88) 91 Intake and Output 08/28/19 08/29/19 19:00 07:00 Intake Total 360 ml 2530.0 ml Output Total 650 ml 800 ml Balance -290 ml 1730.0 ml Intake Oral 360 ml 720 ml IV Total 210.0 ml Other 1600 ml Output Urine Total 650 ml 800 ml General Appearance: no acute distress HEENT: normocephalic Respiratory/Chest: chest wall non-tender, lungs clear Cardiovascular: normal peripheral pulses, normal rate Microbiology Date/Time Source Procedure Growth Status 08/27/19 06:40 Blood Blood Culture - Preliminary NO GROWTH AFTER 24 HOURS Resulted Laboratory Tests 08/29/19 06:36: White Blood Count 5.6, Red Blood Count 4.29, Hemoglobin 11.9L, Hematocrit 36.7L , Mean Corpuscular Volume 85, Mean Corpuscular Hemoglobin 27.6, Mean Corpuscular Hemoglobin Concent 32.4, Red Cell Distribution Width 16.3H, Platelet Count 306, Mean Platelet Volume 7.3, Neutrophils (%) (Auto) 64.8, Lymphocytes (%) (Auto) 18.6L, Monocytes (%) (Auto) 9.5, Eosinophils (%) (Auto) 5.6H, Basophils (%) (Auto) 1.5, Sodium Level 143, Potassium Level 3.9, Chloride Level 106, Carbon Dioxide Level 28, Anion Gap 9, Blood Urea Nitrogen 16, Creatinine 0.5L, Estimat Glomerular Filtration Rate , Glucose Level 89, Calcium Level 9.0, Total Bilirubin 0.7, Aspartate Amino Transf (AST/SGOT) 100H, Alanine Aminotransferase (ALT/SGPT) 140H, Alkaline Phosphatase 173H, Total Protein 7.6, Albumin 2.5L, Globulin 5.1, Albumin/Globulin Ratio 0.5L, Hepatitis A IgM Antibody [Pending], Hepatitis B Surface Antigen [Pending], Hepatitis B Core IgM Antibody [Pending], Hepatitis C Antibody [Pending] Current Medications Medications (Trade) Dose Ordered Sig/Mj Route PRN Reason Start Time Stop Time Status Last Admin Dose Admin Acetaminophen (Tylenol) 650 mg Q4H PRN ORAL Mild Pain/Temp > 100.5 08/25/19 16:45 09/24/19 16:44 08/28/19 09:09 Acetaminophen/ Hydrocodone Bitart ([place] 5/325) 1 tab Q6H PRN ORAL Moderate Pain (Pain Scale 4-6) 08/25/19 19:15 09/01/19 18:29 08/28/19 21:26 Amlodipine Besylate (Norvasc) 5 mg DAILY ORAL 08/26/19 09:00 09/25/19 08:59 08/29/19 08:38 Ascorbic Acid (Vitamin C) 500 mg DAILY ORAL 08/26/19 09:00 09/25/19 08:59 08/29/19 08:38 Atorvastatin Calcium (Lipitor) 40 mg BEDTIME ORAL 08/25/19 21:00 09/24/19 20:59 08/28/19 20:25 Baclofen (Lioresal) 10 mg BID@0900,1500 ORAL 08/29/19 09:00 09/28/19 08:59 08/29/19 15:03 Baclofen (Lioresal) 10 mg QHS ORAL 08/28/19 21:00 09/27/19 20:59 08/28/19 20:26 Bisacodyl (Dulcolax) 10 mg DAILYPRN PRN RECTAL Constipation 08/25/19 16:45 09/24/19 16:44 Diphenhydramine HCl (Benadryl) 25 mg Q12H PRN IVP Itching 08/26/19 17:45 09/25/19 17:44 08/27/19 12:11 Ferrous Sulfate (Feosol) 325 mg DAILY ORAL 08/26/19 09:00 09/25/19 08:59 08/29/19 08:43 Heparin Sodium (Porcine) (Heparin 5000 units/ml) 5,000 units EVERY 12 HOURS SUBQ 08/25/19 21:00 09/24/19 20:59 08/29/19 08:41 Lidocaine (Lidoderm 5% PATCH) 2 patch DAILY TDERMAL 08/25/19 09:00 09/24/19 08:59 08/29/19 08:39 Linezolid (Zyvox) 600 mg EVERY 12 HOURS ORAL 08/29/19 21:00 09/03/19 20:59 Lisinopril (PriniviL) 20 mg Q12HR ORAL 08/25/19 21:00 09/24/19 20:59 08/29/19 08:39 Metformin HCl (Glucophage) 500 mg TWICE A DAY ORAL 08/25/19 18:00 09/24/19 17:59 08/27/19 18:01 Montelukast Sodium (Singulair) 10 mg QPM ORAL 08/26/19 16:30 09/25/19 16:29 08/26/19 17:06 Morphine Sulfate (Morphine Sulfate) 0.5 mg Q4H PRN IVP Severe Pain (Pain Scale 7-10) 08/25/19 19:00 09/01/19 18:59 Pantoprazole (Protonix) 40 mg DAILY ORAL 08/29/19 09:00 09/28/19 08:59 08/29/19 08:37 Piperacillin Sod/ Tazobactam Sod 3.375 gm/Sodium Chloride 110 ml @ 27.5 mls/hr EVERY 8 HOURS IVPB 08/28/19 22:00 09/02/19 21:59 08/29/19 14:02 Polyethylene Glycol (Miralax) 17 gm DAILYPRN PRN ORAL Constipation 08/25/19 16:45 09/24/19 16:44 Tizanidine HCl (Zanaflex) 4 mg BID@0900,1500 ORAL 08/29/19 09:00 09/28/19 08:59 08/29/19 15:05 Tizanidine HCl (Zanaflex) 4 mg QHS ORAL 08/28/19 21:00 09/27/19 20:59 08/28/19 20:26 Trazodone HCl (Desyrel) 100 mg BEDTIME ORAL 08/25/19 21:00 09/24/19 20:59 08/28/19 21:26 Zinc Sulfate (Zinc Sulfate) 220 mg DAILY ORAL 08/26/19 09:00 09/25/19 08:59 08/29/19 08:35 Víctor Cheema MD Aug 29, 2019 16:48
[2019-08-29 20:00] VITALS: BP 137/87
[2019-08-29] MEDS: Atorvastatin 20mg tab ORAL SCH (21:12)
[2019-08-30] VITALS (7 sets, daily range): BP systolic 118–177; BP diastolic 60–88
[2019-08-30] MEDS: Piperacillin/Tazobactam 3.375 GM in NS 110 ML IVPB SCH ×2 (05:34→14:46)
[2019-08-30 06:36] LABS: BASOPHILS % (AUTO) 4.5 % (0.0-2.0); EOSINOPHILS % (AUTO) 3.1 % (0.0-3.0); HEMATOCRIT 36.5 % (37.0-47.0); HEMOGLOBIN 11.9 G/DL (12.0-16.0); MEAN CORPUSCULAR VOLUME 85 FL (80-99); MONOCYTES % (AUTO) 14.4 % (1.0-10.0); PLATELET COUNT 326 K/UL (150-450); RED BLOOD COUNT 4.28 M/UL (4.20-5.40); WHITE BLOOD COUNT 5.8 K/UL (4.8-10.8)
--- NOTE | 2019-08-30 06:42 | Diagnostic Imaging Report ---
EXAM: XR Chest, 1 View CLINICAL HISTORY: INFECT TECHNIQUE: Frontal view of the chest. COMPARISON: 08/27/19 FINDINGS: Limitations: Patient's left hand obscures left middle and lower lung zone. Underpenetration related patient's large body habitus also decreases sensitivity of this exam. Patient rotated to the left. Lungs: Mild diffuse interstitial opacities in both lungs, suggest mild pulmonary edema. Cannot rule out small consolidation of left middle and lower lungs due to overlying left hand Pleural space: Unremarkable. No pneumothorax. Heart: Unremarkable. No cardiomegaly. Mediastinum: Unremarkable. Bones/joints: Osteopenia. Mild degenerative changes. IMPRESSION: Mild diffuse interstitial opacities in both lungs, suggest mild pulmonary edema.
[2019-08-30 07:13] LABS: ALANINE AMINOTRANSFERASE 124 U/L (12-78); ALBUMIN 2.6 G/DL (3.4-5.0); ALBUMIN/GLOBULIN RATIO 0.5 (1.0-2.7); ALKALINE PHOSPHATASE 183 U/L (46-116); ANION GAP 11 mmol/L (5-15); ASPARTATE AMINO TRANSFERASE 71 U/L (15-37); BILIRUBIN,TOTAL 0.5 MG/DL (0.2-1.0); BLOOD UREA NITROGEN 14 mg/dL (7-18); CALCIUM 9.1 MG/DL (8.5-10.1); CARBON DIOXIDE 26 MMOL/L (21-32); CHLORIDE 104 MMOL/L (98-107); CREATININE 0.6 MG/DL (0.55-1.30); POTASSIUM 3.8 MMOL/L (3.5-5.1); SODIUM 140 MMOL/L (136-145)
[2019-08-30] MEDS: metFORMIN 500mg tab ORAL SCH ×2 (09:01→17:16)
[2019-08-30] MEDS: Ascorbic Acid 500mg tab ORAL SCH (09:01)
[2019-08-30] MEDS: Zinc Sulfate 220mg cap ORAL SCH (09:01)
[2019-08-30] MEDS: HYDROcodone/Acetamin 5/325 tab ORAL PRN ×2 (09:01→21:04)
[2019-08-30] MEDS: Lisinopril 20mg tab ORAL SCH ×2 (09:02→20:56)
[2019-08-30] MEDS: Heparin 5000 units/ml inj SUBQ SCH ×2 (09:03→20:58)
--- NOTE | 2019-08-30 09:46 | Pulmonology Progress Note ---
Assessment/Plan Assessment/Plan IMPRESSION: 1. Toxic metabolic encephalopathy, improved. 2. Recent Pseudomonas UTI. Has another UTI now; resistant to Cipro 3. Lower abdominal rash. 4. Multiple sclerosis. 5. Abnormal LFT's; DISCUSSION: I suspect she may have had a drug reaction,possibly delayed to Cipro. I will continue other home medications. Discussed with the patient. Seen by ID. On IV abx Bacteremia noted Abx adjustments per ID GI eval Víctor Cheema M.D. Subjective Interval Events: None new Constitutional: Reports: no symptoms HEENT: Repors: no symptoms Respiratory: Reports: no symptoms Cardiovascular: Reports: no symptoms Gastrointestinal/Abdominal: Reports: no symptoms Allergies: Coded Allergies: ACETAMINOPHEN (Unverified Allergy, Severe, Anaphylaxis, 08/27/19) per patient HYDROCODONE (Unverified Allergy, Severe, Anaphylaxis, 08/27/19) per patient MORPHINE (Unverified Allergy, Severe, Anaphylaxis, 08/27/19) per patient VANCOMYCIN (Verified Allergy, Intermediate, Itching, 08/26/19) With rash SULFA (SULFONAMIDE ANTIBIOTICS) (Verified Allergy, Unknown, 11/22/17) Objective Last 24 Hour Vital Signs Date Time Temp Pulse Resp B/P (MAP) Pulse Ox O2 Delivery O2 Flow Rate FiO2 08/30/19 09:02 177/88 08/30/19 09:01 82 177/88 08/30/19 08:00 97.8 82 19 177/88 (117) 98 08/30/19 04:00 98.2 81 20 137/79 (98) 95 08/30/19 00:00 99.3 89 19 144/73 (96) 97 08/29/19 22:10 97.9 08/29/19 21:13 137/89 08/29/19 21:00 Room Air 08/29/19 20:00 97.9 76 20 137/87 (104) 98 08/29/19 16:00 97.1 75 18 129/69 (89) 97 08/29/19 12:00 97.7 94 18 125/59 (81) 96 Intake and Output 08/29/19 08/30/19 19:00 07:00 Intake Total 640 ml 165.0 ml Output Total 500 ml 950 ml Balance 140 ml -785.0 ml Intake Oral 640 ml IV Total 165.0 ml Output Urine Total 500 ml 950 ml General Appearance: no acute distress HEENT: normocephalic Respiratory/Chest: chest wall non-tender, lungs clear Cardiovascular: normal peripheral pulses, normal rate Abdomen: normal bowel sounds Laboratory Tests 08/30/19 05:11: White Blood Count 5.8, Red Blood Count 4.28, Hemoglobin 11.9L, Hematocrit 36.5L , Mean Corpuscular Volume 85, Mean Corpuscular Hemoglobin 27.7, Mean Corpuscular Hemoglobin Concent 32.4, Red Cell Distribution Width 16.0H, Platelet Count 326, Mean Platelet Volume 7.2, Neutrophils (%) (Auto) 55.0, Lymphocytes (%) (Auto) 23.0, Monocytes (%) (Auto) 14.4H, Eosinophils (%) (Auto) 3.1H, Basophils (%) (Auto) 4.5H, Sodium Level 140, Potassium Level 3.8, Chloride Level 104, Carbon Dioxide Level 26, Anion Gap 11, Blood Urea Nitrogen 14, Creatinine 0.6, Estimat Glomerular Filtration Rate , Glucose Level 88, Calcium Level 9.1, Total Bilirubin 0.5, Aspartate Amino Transf (AST/SGOT) 71H, Alanine Aminotransferase (ALT/SGPT) 124H, Alkaline Phosphatase 183H, Total Protein 8.1, Albumin 2.6L, Globulin 5.5, Albumin/Globulin Ratio 0.5L Current Medications Medications (Trade) Dose Ordered Sig/Mj Route PRN Reason Start Time Stop Time Status Last Admin Dose Admin Acetaminophen (Tylenol) 650 mg Q4H PRN ORAL Mild Pain/Temp > 100.5 08/25/19 16:45 09/24/19 16:44 08/30/19 00:45 Acetaminophen/ Hydrocodone Bitart ([place] 5/325) 1 tab Q6H PRN ORAL Moderate Pain (Pain Scale 4-6) 08/25/19 19:15 09/01/19 18:29 08/30/19 09:01 Amlodipine Besylate (Norvasc) 5 mg DAILY ORAL 08/26/19 09:00 09/25/19 08:59 08/30/19 09:01 Ascorbic Acid (Vitamin C) 500 mg DAILY ORAL 08/26/19 09:00 09/25/19 08:59 08/30/19 09:01 Atorvastatin Calcium (Lipitor) 40 mg BEDTIME ORAL 08/25/19 21:00 09/24/19 20:59 08/29/19 21:12 Baclofen (Lioresal) 10 mg BID@0900,1500 ORAL 08/29/19 09:00 09/28/19 08:59 08/30/19 09:01 Baclofen (Lioresal) 10 mg QHS ORAL 08/28/19 21:00 09/27/19 20:59 08/29/19 21:12 Bisacodyl (Dulcolax) 10 mg DAILYPRN PRN RECTAL Constipation 08/25/19 16:45 09/24/19 16:44 Diphenhydramine HCl (Benadryl) 25 mg Q12H PRN IVP Itching 08/26/19 17:45 09/25/19 17:44 08/27/19 12:11 Ferrous Sulfate (Feosol) 325 mg DAILY ORAL 08/26/19 09:00 09/25/19 08:59 08/30/19 08:58 Heparin Sodium (Porcine) (Heparin 5000 units/ml) 5,000 units EVERY 12 HOURS SUBQ 08/25/19 21:00 09/24/19 20:59 08/30/19 09:03 Lidocaine (Lidoderm 5% PATCH) 2 patch DAILY TDERMAL 08/25/19 09:00 09/24/19 08:59 08/30/19 09:21 Linezolid (Zyvox) 600 mg EVERY 12 HOURS ORAL 08/29/19 21:00 09/03/19 20:59 08/30/19 09:01 Lisinopril (PriniviL) 20 mg Q12HR ORAL 08/25/19 21:00 09/24/19 20:59 08/30/19 09:02 Metformin HCl (Glucophage) 500 mg TWICE A DAY ORAL 08/25/19 18:00 09/24/19 17:59 08/30/19 09:01 Montelukast Sodium (Singulair) 10 mg QPM ORAL 08/26/19 16:30 09/25/19 16:29 08/26/19 17:06 Morphine Sulfate (Morphine Sulfate) 0.5 mg Q4H PRN IVP Severe Pain (Pain Scale 7-10) 08/25/19 19:00 09/01/19 18:59 Pantoprazole (Protonix) 40 mg DAILY ORAL 08/29/19 09:00 09/28/19 08:59 08/30/19 09:01 Piperacillin Sod/ Tazobactam Sod 3.375 gm/Sodium Chloride 110 ml @ 27.5 mls/hr EVERY 8 HOURS IVPB 08/28/19 22:00 09/02/19 21:59 08/30/19 05:34 Polyethylene Glycol (Miralax) 17 gm DAILYPRN PRN ORAL Constipation 08/25/19 16:45 09/24/19 16:44 Tizanidine HCl (Zanaflex) 4 mg BID@0900,1500 ORAL 08/29/19 09:00 09/28/19 08:59 08/30/19 09:00 Tizanidine HCl (Zanaflex) 4 mg QHS ORAL 08/28/19 21:00 09/27/19 20:59 08/29/19 21:11 Trazodone HCl (Desyrel) 100 mg BEDTIME ORAL 08/25/19 21:00 09/24/19 20:59 08/28/19 21:26 Zinc Sulfate (Zinc Sulfate) 220 mg DAILY ORAL 08/26/19 09:00 09/25/19 08:59 08/30/19 09:01 Víctor Cheema MD Aug 30, 2019 09:46
--- NOTE | 2019-08-30 09:55 | General Progress Note ---
Assessment/Plan Assessment/Plan: Assessment - Vague complaint of abd pain - Mild (R) sided abd TTP - gallstones on imaging - Elevated transaminases Recommendations - Check hepatitis serologies - check HIDA with CCK in am - po as tolerated - Check stool OB Thank you Anuja Sam Subjective Allergies: Coded Allergies: ACETAMINOPHEN (Unverified Allergy, Severe, Anaphylaxis, 08/27/19) per patient HYDROCODONE (Unverified Allergy, Severe, Anaphylaxis, 08/27/19) per patient MORPHINE (Unverified Allergy, Severe, Anaphylaxis, 08/27/19) per patient VANCOMYCIN (Verified Allergy, Intermediate, Itching, 08/26/19) With rash SULFA (SULFONAMIDE ANTIBIOTICS) (Verified Allergy, Unknown, 11/22/17) Objective Last 24 Hour Vital Signs Date Time Temp Pulse Resp B/P (MAP) Pulse Ox O2 Delivery O2 Flow Rate FiO2 08/30/19 09:02 177/88 08/30/19 09:01 82 177/88 08/30/19 08:00 97.8 82 19 177/88 (117) 98 08/30/19 04:00 98.2 81 20 137/79 (98) 95 08/30/19 00:00 99.3 89 19 144/73 (96) 97 08/29/19 22:10 97.9 08/29/19 21:13 137/89 08/29/19 21:00 Room Air 08/29/19 20:00 97.9 76 20 137/87 (104) 98 08/29/19 16:00 97.1 75 18 129/69 (89) 97 08/29/19 12:00 97.7 94 18 125/59 (81) 96 Intake and Output 08/29/19 08/30/19 19:00 07:00 Intake Total 640 ml 165.0 ml Output Total 500 ml 950 ml Balance 140 ml -785.0 ml Intake Oral 640 ml IV Total 165.0 ml Output Urine Total 500 ml 950 ml Laboratory Tests 08/30/19 05:11: White Blood Count 5.8, Red Blood Count 4.28, Hemoglobin 11.9L, Hematocrit 36.5L , Mean Corpuscular Volume 85, Mean Corpuscular Hemoglobin 27.7, Mean Corpuscular Hemoglobin Concent 32.4, Red Cell Distribution Width 16.0H, Platelet Count 326, Mean Platelet Volume 7.2, Neutrophils (%) (Auto) 55.0, Lymphocytes (%) (Auto) 23.0, Monocytes (%) (Auto) 14.4H, Eosinophils (%) (Auto) 3.1H, Basophils (%) (Auto) 4.5H, Sodium Level 140, Potassium Level 3.8, Chloride Level 104, Carbon Dioxide Level 26, Anion Gap 11, Blood Urea Nitrogen 14, Creatinine 0.6, Estimat Glomerular Filtration Rate , Glucose Level 88, Calcium Level 9.1, Total Bilirubin 0.5, Aspartate Amino Transf (AST/SGOT) 71H, Alanine Aminotransferase (ALT/SGPT) 124H, Alkaline Phosphatase 183H, Total Protein 8.1, Albumin 2.6L, Globulin 5.5, Albumin/Globulin Ratio 0.5L Height (Feet): 5 Height (Inches): 8.00 Weight (Pounds): 234 Anuja Sam MD Aug 30, 2019 09:55
--- NOTE | 2019-08-30 16:48 | Infectious Diseases Prog Note ---
Assessment/Plan Assessment/Plan ASSESSMENT AND PLAN: 1. 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 sepsis, ? aspiration pna/hcap vs atx, rash - vancomycin and ? cipro elevated lft's - ? doxycycline which was discontinued, GI w/u for cholecystitis with hida scan, viral hepatitis panel ordered chest x-ray now with pulmonary edema now - ceftriaxone and zyvox - day # 5/10 abx - f/u on sc, surveillance blood cultures, labs and chest x-ray - check 2-D echo - GI work up in progress - rash stable 2. Hyperlipidemia. 3. Multiple sclerosis. 4. Paraplegia. 5. Catheter. 6. Wound care protocol. Wounds do not look acutely infected. 7. Diabetes. 8. Hypertension. 9. CHF. 10. Blood sugar and blood pressure treatment per primary care team for diabetes and hypertension. 11. Allergies to sulfa drugs - possible vancomycin and cipro allergies with rash 12. Social history negative. 13. Family history noncontributory. 14. MAR was noted. 15. Case discussed with RN. 16. Continue treatment per primary consultants. 17. Notes and records were noted. Orders were entered. Subjective Constitutional: Denies: fever HEENT: Denies: congestion Respiratory: Denies: shortness of breath Cardiovascular: Denies: chest pain Gastrointestinal/Abdominal: Denies: nausea, vomiting, diarrhea Genitourinary: Reports: other - + weber Neurologic: Denies: headache Psychiatric: Denies: depression Skin: Denies: rash Hematologic: Denies: bleeding Musculoskeletal: Denies: pain Allergies: Coded Allergies: ACETAMINOPHEN (Unverified Allergy, Severe, Anaphylaxis, 08/27/19) per patient HYDROCODONE (Unverified Allergy, Severe, Anaphylaxis, 08/27/19) per patient MORPHINE (Unverified Allergy, Severe, Anaphylaxis, 08/27/19) per patient VANCOMYCIN (Verified Allergy, Intermediate, Itching, 08/26/19) With rash SULFA (SULFONAMIDE ANTIBIOTICS) (Verified Allergy, Unknown, 11/22/17) Objective Vital Signs Last 24 Hour Vital Signs Date Time Temp Pulse Resp B/P (MAP) Pulse Ox O2 Delivery O2 Flow Rate FiO2 08/30/19 15:45 98.6 08/30/19 12:00 98.6 63 19 118/60 (79) 94 08/30/19 10:00 148/70 (96) 08/30/19 09:31 97.8 08/30/19 09:02 177/88 08/30/19 09:01 82 177/88 08/30/19 09:00 Room Air 08/30/19 08:00 97.8 82 19 177/88 (117) 98 08/30/19 04:00 98.2 81 20 137/79 (98) 95 08/30/19 00:00 99.3 89 19 144/73 (96) 97 08/29/19 22:10 97.9 08/29/19 21:13 137/89 08/29/19 21:00 Room Air 08/29/19 20:00 97.9 76 20 137/87 (104) 98 Height (Feet): 5 Height (Inches): 8.00 Weight (Pounds): 234 General Appearance: no acute distress HEENT: normocephalic, atraumatic, anicteric, mucous membranes moist Respiratory/Chest: lungs clear, normal breath sounds, no respiratory distress, no accessory muscle use Cardiovascular: normal rate, regular rhythm, no gallop/murmur, no JVD Abdomen: normal bowel sounds, soft, non tender, no organomegaly, non distended Genitourinary: other - + weber - urine clearer Extremities: no cyanosis Skin: no rash 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 Chest x-ray - 08/30/19 - Procedure: XRAY Chest 1v EXAM: XR Chest, 1 View CLINICAL HISTORY: INFECT TECHNIQUE: Frontal view of the chest. COMPARISON: 08/27/19 FINDINGS: Limitations: Patient's left hand obscures left middle and lower lung zone. Underpenetration related patient's large body habitus also decreases sensitivity of this exam. Patient rotated to the left. Lungs: Mild diffuse interstitial opacities in both lungs, suggest mild pulmonary edema. Cannot rule out small consolidation of left middle and lower lungs due to overlying left hand Pleural space: Unremarkable. No pneumothorax. Heart: Unremarkable. No cardiomegaly. Mediastinum: Unremarkable. Bones/joints: Osteopenia. Mild degenerative changes. IMPRESSION: Mild diffuse interstitial opacities in both lungs, suggest mild pulmonary edema. Microbiology Date/Time Source Procedure Growth Status 08/27/19 06:40 Blood Blood Culture - Preliminary NO GROWTH AFTER 48 HOURS Resulted 08/25/19 08:40 Nasal Nares MRSA Culture - Final NO METHICILLIN RESISTANT STAPH AUREUS... Complete 08/25/19 09:00 Urine,Clean Catch Urine Culture - Final Escherichia Coli Complete 08/25/19 08:40 Rectum VRE Culture - Final NO VANCOMYCIN RESISTANT ENTEROCOCCUS ... Complete Laboratory Tests Test 08/30/19 05:11 08/30/19 13:25 White Blood Count 5.8 K/UL (4.8-10.8) Red Blood Count 4.28 M/UL (4.20-5.40) Hemoglobin 11.9 G/DL (12.0-16.0) L Hematocrit 36.5 % (37.0-47.0) L Mean Corpuscular Volume 85 FL (80-99) Mean Corpuscular Hemoglobin 27.7 PG (27.0-31.0) Mean Corpuscular Hemoglobin Concent 32.4 G/DL (32.0-36.0) Red Cell Distribution Width 16.0 % (11.6-14.8) H Platelet Count 326 K/UL (150-450) Mean Platelet Volume 7.2 FL (6.5-10.1) Neutrophils (%) (Auto) 55.0 % (45.0-75.0) Lymphocytes (%) (Auto) 23.0 % (20.0-45.0) Monocytes (%) (Auto) 14.4 % (1.0-10.0) H Eosinophils (%) (Auto) 3.1 % (0.0-3.0) H Basophils (%) (Auto) 4.5 % (0.0-2.0) H Sodium Level 140 MMOL/L (136-145) Potassium Level 3.8 MMOL/L (3.5-5.1) Chloride Level 104 MMOL/L (98-107) Carbon Dioxide Level 26 MMOL/L (21-32) Anion Gap 11 mmol/L (5-15) Blood Urea Nitrogen 14 mg/dL (7-18) Creatinine 0.6 MG/DL (0.55-1.30) Estimat Glomerular Filtration Rate mL/min (>60) Glucose Level 88 MG/DL (74-106) Calcium Level 9.1 MG/DL (8.5-10.1) Total Bilirubin 0.5 MG/DL (0.2-1.0) Aspartate Amino Transf (AST/SGOT) 71 U/L (15-37) H Alanine Aminotransferase (ALT/SGPT) 124 U/L (12-78) H Alkaline Phosphatase 183 U/L (46-116) H Total Protein 8.1 G/DL (6.4-8.2) Albumin 2.6 G/DL (3.4-5.0) L Globulin 5.5 g/dL Albumin/Globulin Ratio 0.5 (1.0-2.7) L Stool Occult Blood Pending Current Medications Medications (Trade) Dose Ordered Sig/Mj Route PRN Reason Start Time Stop Time Status Last Admin Dose Admin Acetaminophen (Tylenol) 650 mg Q4H PRN ORAL Mild Pain/Temp > 100.5 08/25/19 16:45 09/24/19 16:44 08/30/19 00:45 Acetaminophen/ Hydrocodone Bitart ([place] 5/325) 1 tab Q6H PRN ORAL Moderate Pain (Pain Scale 4-6) 08/25/19 19:15 09/01/19 18:29 08/30/19 09:01 Amlodipine Besylate (Norvasc) 5 mg DAILY ORAL 08/26/19 09:00 09/25/19 08:59 08/30/19 09:01 Ascorbic Acid (Vitamin C) 500 mg DAILY ORAL 08/26/19 09:00 09/25/19 08:59 08/30/19 09:01 Atorvastatin Calcium (Lipitor) 40 mg BEDTIME ORAL 08/25/19 21:00 09/24/19 20:59 08/29/19 21:12 Baclofen (Lioresal) 10 mg BID@0900,1500 ORAL 08/29/19 09:00 09/28/19 08:59 08/30/19 14:46 Baclofen (Lioresal) 10 mg QHS ORAL 08/28/19 21:00 09/27/19 20:59 08/29/19 21:12 Bisacodyl (Dulcolax) 10 mg DAILYPRN PRN RECTAL Constipation 08/25/19 16:45 09/24/19 16:44 Diphenhydramine HCl (Benadryl) 25 mg Q12H PRN IVP Itching 08/26/19 17:45 09/25/19 17:44 08/27/19 12:11 Ferrous Sulfate (Feosol) 325 mg DAILY ORAL 08/26/19 09:00 09/25/19 08:59 08/30/19 08:58 Heparin Sodium (Porcine) (Heparin 5000 units/ml) 5,000 units EVERY 12 HOURS SUBQ 08/25/19 21:00 09/24/19 20:59 08/30/19 09:03 Lidocaine (Lidoderm 5% PATCH) 2 patch DAILY TDERMAL 08/25/19 09:00 09/24/19 08:59 08/30/19 09:21 Linezolid (Zyvox) 600 mg EVERY 12 HOURS ORAL 08/29/19 21:00 09/03/19 20:59 08/30/19 09:01 Lisinopril (PriniviL) 20 mg Q12HR ORAL 08/25/19 21:00 09/24/19 20:59 08/30/19 09:02 Metformin HCl (Glucophage) 500 mg TWICE A DAY ORAL 08/25/19 18:00 09/24/19 17:59 08/30/19 09:01 Montelukast Sodium (Singulair) 10 mg QPM ORAL 08/26/19 16:30 09/25/19 16:29 08/26/19 17:06 Morphine Sulfate (Morphine Sulfate) 0.5 mg Q4H PRN IVP Severe Pain (Pain Scale 7-10) 08/25/19 19:00 09/01/19 18:59 Pantoprazole (Protonix) 40 mg DAILY ORAL 08/29/19 09:00 09/28/19 08:59 08/30/19 09:01 Piperacillin Sod/ Tazobactam Sod 3.375 gm/Sodium Chloride 110 ml @ 27.5 mls/hr EVERY 8 HOURS IVPB 08/28/19 22:00 09/02/19 21:59 08/30/19 14:46 Polyethylene Glycol (Miralax) 17 gm DAILYPRN PRN ORAL Constipation 08/25/19 16:45 09/24/19 16:44 Tizanidine HCl (Zanaflex) 4 mg BID@0900,1500 ORAL 08/29/19 09:00 09/28/19 08:59 08/30/19 14:46 Tizanidine HCl (Zanaflex) 4 mg QHS ORAL 08/28/19 21:00 09/27/19 20:59 08/29/19 21:11 Trazodone HCl (Desyrel) 100 mg BEDTIME ORAL 08/25/19 21:00 09/24/19 20:59 08/28/19 21:26 Zinc Sulfate (Zinc Sulfate) 220 mg DAILY ORAL 08/26/19 09:00 09/25/19 08:59 08/30/19 09:01 Carroll Miller MD Aug 30, 2019 16:48
[2019-08-30] MEDS: Montelukast 10mg tablet ORAL SCH (17:16)
[2019-08-30] MEDS: cefTRIAXone 1 GM in D5W 50 ML IVPB SCH (17:20)
--- NOTE | 2019-08-30 17:45 | Consultation ---
DATE OF CONSULTATION: 08/30/2019 GASTROENTEROLOGY CONSULTATION CONSULTING PHYSICIAN: Anuja Sam M.D. REFERRING PHYSICIAN: Víctor Cheema M.D. CHIEF COMPLAINT: I was asked to see this patient by Dr. Víctor Cheema for evaluation of abnormal liver tests. HISTORY OF PRESENT ILLNESS: The patient is a debilitated 74-year-old white woman, who is a poor historian, who is admitted to [facility] due to pain in the midback around both sides of her body. The patient complains of some abdominal discomfort as well. She states it is worse with sitting and this has been going only on for about 10 days. The patient has history of multiple sclerosis and has paraplegia and debilitation. She is bedbound. She recently had admission and discharge for urinary tract infection and ultrasound shows urolithiasis. PAST MEDICAL HISTORY: History of obesity, multiple sclerosis, paraplegia, diabetes, recent history of urinary tract infection, bedbound state, contracture deformities, hypertension, and hyperlipidemia. FAMILY HISTORY: Noncontributory. SOCIAL HISTORY: No history of smoking, drinking, or drugs. REVIEW OF SYSTEMS: Otherwise negative. PHYSICAL EXAMINATION: GENERAL: Pleasant, obese white woman seen in her room, in no distress. HEENT: Normocephalic and atraumatic. Sclerae anicteric. Oropharynx clear. NECK: Supple. CHEST: Clear to auscultation. CARDIOVASCULAR: Revealed regular rate. ABDOMEN: Obese, soft with mild right-sided tenderness to palpation, which is somewhat more in the right upper quadrant without much guarding or rebound. EXTREMITIES: Reveals some contracture deformities of the upper extremities. NEUROLOGIC: Notable for multiple sclerosis. LABORATORY DATA: Noted. The patient has some mild transaminase elevations. Ultrasound was noted showing cholelithiasis as well as urolithiasis. ASSESSMENT: This patient presents with some abdominal pain, which according to her worsens with sitting. There is also some abdominal tenderness in the right upper quadrant with some liver test elevations. Given the gallstones, I would check HIDA scan with CCK to rule out any component of gallbladder dysfunction or chronic cholecystitis. Also, her hepatitis serology should be checked to rule out any viral hepatitis as a background. Should the above studies be nonrevealing, then an MRCP has to be done to rule out any choledocholithiasis. In the meantime, she seems relatively stable and oral diet can be continued as tolerated. I would also check her stool for occult blood to make sure there is no GI pathology that could explain her abdominal pain and mild anemia. If she has not had a colonoscopy, it would be reasonable to do one at some point in the future. RECOMMENDATIONS: Per above discussion and per orders written in the chart. Thank you for asking me to participate in the care of this patient. Anuja Sam M.D. DR: Akbar JOB#: [id number] CC: CLEOPATRA
[2019-08-30] MEDS: TraZODone 100mg tab ORAL SCH (20:56)
[2019-08-30] MEDS: Atorvastatin 20mg tab ORAL SCH (20:57)
[2019-08-31] VITALS: BP 110/63
[2019-08-31 04:26] VITALS: BP 155/79
[2019-08-31 08:00] VITALS: BP 168/89
[2019-08-31] MEDS: metFORMIN 500mg tab ORAL SCH ×2 (09:00→17:13)
[2019-08-31 09:02] LABS: BASOPHILS % (AUTO) 0.8 % (0.0-2.0); EOSINOPHILS % (AUTO) 1.7 % (0.0-3.0); HEMATOCRIT 40.3 % (37.0-47.0); LYMPHOCYTES % (AUTO) 19.1 % (20.0-45.0); MEAN CORPUSCULAR VOLUME 86 FL (80-99); MONOCYTES % (AUTO) 6.3 % (1.0-10.0); NEUTROPHILS % (AUTO) 72.1 % (45.0-75.0); PLATELET COUNT 315 K/UL (150-450); RED BLOOD COUNT 4.71 M/UL (4.20-5.40); RED CELL DISTRIBUTION WIDTH 16.4 % (11.6-14.8); WHITE BLOOD COUNT 6.2 K/UL (4.8-10.8)
[2019-08-31] MEDS: Zinc Sulfate 220mg cap ORAL SCH (09:08)
[2019-08-31] MEDS: Ascorbic Acid 500mg tab ORAL SCH (09:08)
[2019-08-31] MEDS: Lisinopril 20mg tab ORAL SCH ×2 (09:10→21:06)
[2019-08-31] MEDS: Heparin 5000 units/ml inj SUBQ SCH ×2 (09:11→21:10)
[2019-08-31 09:16] LABS: ALANINE AMINOTRANSFERASE 96 U/L (12-78); ALBUMIN 2.7 G/DL (3.4-5.0); ALBUMIN/GLOBULIN RATIO 0.5 (1.0-2.7); ALKALINE PHOSPHATASE 183 U/L (46-116); ANION GAP 7 mmol/L (5-15); ASPARTATE AMINO TRANSFERASE 40 U/L (15-37); BILIRUBIN,TOTAL 0.4 MG/DL (0.2-1.0); BLOOD UREA NITROGEN 11 mg/dL (7-18); CALCIUM 9.2 MG/DL (8.5-10.1); CARBON DIOXIDE 27 MMOL/L (21-32); CHLORIDE 106 MMOL/L (98-107); CREATININE 0.6 MG/DL (0.55-1.30); POTASSIUM 3.7 MMOL/L (3.5-5.1); SODIUM 140 MMOL/L (136-145)
--- NOTE | 2019-08-31 10:01 | Pulmonology Progress Note ---
Assessment/Plan Assessment/Plan IMPRESSION: 1. Toxic metabolic encephalopathy, improved. 2. Recent Pseudomonas UTI. Has another UTI now; resistant to Cipro 3. Lower abdominal rash. 4. Multiple sclerosis. 5. Abnormal LFT's; DISCUSSION: I suspect she may have had a drug reaction,possibly delayed to Cipro. I will continue other home medications. Seen by GI; workup in plave for abn LFT's Discussed with the patient. Seen by ID. On IV abx Bacteremia noted Abx adjustments per ID GI eval noted Víctor Cheema M.D. Subjective Interval Events: Seen by ID and GI Constitutional: Reports: no symptoms HEENT: Repors: no symptoms Respiratory: Reports: no symptoms Cardiovascular: Reports: no symptoms Gastrointestinal/Abdominal: Reports: no symptoms Genitourinary: Reports: no symptoms Allergies: Coded Allergies: ACETAMINOPHEN (Unverified Allergy, Severe, Anaphylaxis, 08/27/19) per patient HYDROCODONE (Unverified Allergy, Severe, Anaphylaxis, 08/27/19) per patient MORPHINE (Unverified Allergy, Severe, Anaphylaxis, 08/27/19) per patient VANCOMYCIN (Verified Allergy, Intermediate, Itching, 08/26/19) With rash SULFA (SULFONAMIDE ANTIBIOTICS) (Verified Allergy, Unknown, 11/22/17) Objective Last 24 Hour Vital Signs Date Time Temp Pulse Resp B/P (MAP) Pulse Ox O2 Delivery O2 Flow Rate FiO2 08/31/19 09:24 Room Air 08/31/19 09:10 157/67 08/31/19 09:09 157/67 08/31/19 08:00 97.5 97 18 168/89 (115) 94 08/31/19 04:26 97.0 83 18 155/79 (104) 98 08/31/19 00:00 97.3 73 19 110/63 (79) 97 08/30/19 21:33 97.6 08/30/19 21:33 97.6 08/30/19 21:13 Room Air 08/30/19 20:56 118/66 08/30/19 20:00 98.6 77 19 118/66 (83) 97 08/30/19 16:00 97.6 69 17 119/60 (79) 93 08/30/19 15:45 98.6 08/30/19 12:00 98.6 63 19 118/60 (79) 94 Intake and Output 08/30/19 08/31/19 19:00 07:00 Intake Total 1277.5 ml Output Total 1500 ml Balance -222.5 ml IV Total 77.5 ml Other 1200 ml Output Urine Total 1500 ml General Appearance: no acute distress HEENT: normocephalic Respiratory/Chest: chest wall non-tender, lungs clear Cardiovascular: normal peripheral pulses, normal rate Abdomen: normal bowel sounds Laboratory Tests 08/30/19 13:25: Stool Occult Blood [Pending] 08/31/19 08:30: White Blood Count 6.2, Red Blood Count 4.71, Hemoglobin 13.0, Hematocrit 40.3, Mean Corpuscular Volume 86, Mean Corpuscular Hemoglobin 27.6, Mean Corpuscular Hemoglobin Concent 32.3, Red Cell Distribution Width 16.4H, Platelet Count 315, Mean Platelet Volume 7.3, Neutrophils (%) (Auto) 72.1, Lymphocytes (%) (Auto) 19.1L, Monocytes (%) (Auto) 6.3, Eosinophils (%) (Auto) 1.7, Basophils (%) (Auto ) 0.8, Sodium Level 140, Potassium Level 3.7, Chloride Level 106, Carbon Dioxide Level 27, Anion Gap 7, Blood Urea Nitrogen 11, Creatinine 0.6, Estimat Glomerular Filtration Rate , Glucose Level 89, Calcium Level 9.2, Total Bilirubin 0.4, Aspartate Amino Transf (AST/SGOT) 40H, Alanine Aminotransferase ( ALT/SGPT) 96H, Alkaline Phosphatase 183H, Total Protein 8.3H, Albumin 2.7L, Globulin 5.6, Albumin/Globulin Ratio 0.5L Current Medications Medications (Trade) Dose Ordered Sig/Mj Route PRN Reason Start Time Stop Time Status Last Admin Dose Admin Acetaminophen (Tylenol) 650 mg Q4H PRN ORAL Mild Pain/Temp > 100.5 08/25/19 16:45 09/24/19 16:44 08/30/19 00:45 Acetaminophen/ Hydrocodone Bitart ([place] 5/325) 1 tab Q6H PRN ORAL Moderate Pain (Pain Scale 4-6) 08/25/19 19:15 09/01/19 18:29 08/30/19 21:04 Amlodipine Besylate (Norvasc) 5 mg DAILY ORAL 08/26/19 09:00 09/25/19 08:59 08/31/19 09:09 Ascorbic Acid (Vitamin C) 500 mg DAILY ORAL 08/26/19 09:00 09/25/19 08:59 08/31/19 09:08 Atorvastatin Calcium (Lipitor) 40 mg BEDTIME ORAL 08/25/19 21:00 09/24/19 20:59 08/30/19 20:57 Baclofen (Lioresal) 10 mg BID@0900,1500 ORAL 08/29/19 09:00 09/28/19 08:59 08/31/19 09:07 Baclofen (Lioresal) 10 mg QHS ORAL 08/28/19 21:00 09/27/19 20:59 08/30/19 20:56 Bisacodyl (Dulcolax) 10 mg DAILYPRN PRN RECTAL Constipation 08/25/19 16:45 09/24/19 16:44 Ceftriaxone Sodium 1 gm/ Dextrose 50 ml @ 100 mls/hr Q24H IVPB 08/30/19 18:00 09/06/19 17:59 08/30/19 17:20 Diphenhydramine HCl (Benadryl) 25 mg Q12H PRN IVP Itching 08/26/19 17:45 09/25/19 17:44 08/27/19 12:11 Ferrous Sulfate (Feosol) 325 mg DAILY ORAL 08/26/19 09:00 09/25/19 08:59 08/31/19 09:06 Heparin Sodium (Porcine) (Heparin 5000 units/ml) 5,000 units EVERY 12 HOURS SUBQ 08/25/19 21:00 09/24/19 20:59 08/31/19 09:11 Lidocaine (Lidoderm 5% PATCH) 2 patch DAILY TDERMAL 08/25/19 09:00 09/24/19 08:59 08/31/19 09:12 Linezolid (Zyvox) 600 mg EVERY 12 HOURS ORAL 08/29/19 21:00 09/03/19 20:59 08/31/19 09:07 Lisinopril (PriniviL) 20 mg Q12HR ORAL 08/25/19 21:00 09/24/19 20:59 08/31/19 09:10 Metformin HCl (Glucophage) 500 mg TWICE A DAY ORAL 08/25/19 18:00 09/24/19 17:59 08/30/19 17:16 Montelukast Sodium (Singulair) 10 mg QPM ORAL 08/26/19 16:30 09/25/19 16:29 08/30/19 17:16 Morphine Sulfate (Morphine Sulfate) 0.5 mg Q4H PRN IVP Severe Pain (Pain Scale 7-10) 08/25/19 19:00 09/01/19 18:59 Pantoprazole (Protonix) 40 mg DAILY ORAL 08/29/19 09:00 09/28/19 08:59 08/31/19 09:07 Polyethylene Glycol (Miralax) 17 gm DAILYPRN PRN ORAL Constipation 08/25/19 16:45 09/24/19 16:44 Tizanidine HCl (Zanaflex) 4 mg BID@0900,1500 ORAL 08/29/19 09:00 09/28/19 08:59 08/30/19 14:46 Tizanidine HCl (Zanaflex) 4 mg QHS ORAL 08/28/19 21:00 09/27/19 20:59 08/30/19 20:55 Trazodone HCl (Desyrel) 100 mg BEDTIME ORAL 08/25/19 21:00 09/24/19 20:59 08/30/19 20:56 Zinc Sulfate (Zinc Sulfate) 220 mg DAILY ORAL 08/26/19 09:00 09/25/19 08:59 08/31/19 09:08 Víctor Cheema MD Aug 31, 2019 10:01
--- NOTE | 2019-08-31 10:54 | General Progress Note ---
Assessment/Plan Problem List: (1) Back pain ICD Codes: M54.9 - Dorsalgia, unspecified SNOMED: 411401911 (2) Multiple sclerosis ICD Codes: G35 - Multiple sclerosis SNOMED: 06182361 Assessment/Plan: elevated LFTS hepatomegaly gallstones liver cyst improving LFTS ? medication related plan MRCP repeat lfts neg hepatitis panel Subjective ROS Limited/Unobtainable: Yes Allergies: Coded Allergies: ACETAMINOPHEN (Unverified Allergy, Severe, Anaphylaxis, 08/27/19) per patient HYDROCODONE (Unverified Allergy, Severe, Anaphylaxis, 08/27/19) per patient MORPHINE (Unverified Allergy, Severe, Anaphylaxis, 08/27/19) per patient VANCOMYCIN (Verified Allergy, Intermediate, Itching, 08/26/19) With rash SULFA (SULFONAMIDE ANTIBIOTICS) (Verified Allergy, Unknown, 11/22/17) Subjective abd pain had BM Objective Last 24 Hour Vital Signs Date Time Temp Pulse Resp B/P (MAP) Pulse Ox O2 Delivery O2 Flow Rate FiO2 08/31/19 09:24 Room Air 08/31/19 09:10 157/67 08/31/19 09:09 157/67 08/31/19 08:00 97.5 97 18 168/89 (115) 94 08/31/19 04:26 97.0 83 18 155/79 (104) 98 08/31/19 00:00 97.3 73 19 110/63 (79) 97 08/30/19 21:33 97.6 08/30/19 21:33 97.6 08/30/19 21:13 Room Air 08/30/19 20:56 118/66 08/30/19 20:00 98.6 77 19 118/66 (83) 97 08/30/19 16:00 97.6 69 17 119/60 (79) 93 08/30/19 15:45 98.6 08/30/19 12:00 98.6 63 19 118/60 (79) 94 Intake and Output 08/30/19 08/31/19 19:00 07:00 Intake Total 1277.5 ml Output Total 1500 ml Balance -222.5 ml IV Total 77.5 ml Other 1200 ml Output Urine Total 1500 ml Laboratory Tests 08/30/19 13:25: Stool Occult Blood [Pending] 08/31/19 08:30: White Blood Count 6.2, Red Blood Count 4.71, Hemoglobin 13.0, Hematocrit 40.3, Mean Corpuscular Volume 86, Mean Corpuscular Hemoglobin 27.6, Mean Corpuscular Hemoglobin Concent 32.3, Red Cell Distribution Width 16.4H, Platelet Count 315, Mean Platelet Volume 7.3, Neutrophils (%) (Auto) 72.1, Lymphocytes (%) (Auto) 19.1L, Monocytes (%) (Auto) 6.3, Eosinophils (%) (Auto) 1.7, Basophils (%) (Auto ) 0.8, Sodium Level 140, Potassium Level 3.7, Chloride Level 106, Carbon Dioxide Level 27, Anion Gap 7, Blood Urea Nitrogen 11, Creatinine 0.6, Estimat Glomerular Filtration Rate , Glucose Level 89, Calcium Level 9.2, Total Bilirubin 0.4, Aspartate Amino Transf (AST/SGOT) 40H, Alanine Aminotransferase ( ALT/SGPT) 96H, Alkaline Phosphatase 183H, Total Protein 8.3H, Albumin 2.7L, Globulin 5.6, Albumin/Globulin Ratio 0.5L Height (Feet): 5 Height (Inches): 8.00 Weight (Pounds): 234 General Appearance: alert EENT: PERRL/EOMI Neck: supple Cardiovascular: normal rate Respiratory/Chest: decreased breath sounds Abdomen: soft, decreased bowel sounds, tender Extremities: non-tender Russel Wilson MD Aug 31, 2019 10:54
[2019-08-31 12:00] VITALS: BP 154/94
[2019-08-31 16:00] VITALS: BP 148/88
--- NOTE | 2019-08-31 16:50 | Diagnostic Imaging Report ---
Indication: Abdominal pain, elevated LFTs Technique: MRI of the abdomen was performed in a 1.5 Natasha magnet. Pulse sequences obtained include coronal and axial T2 single shot fast spin echo breathhold and respiratory gated coronal T2 3-D M.R.C.P.; this data set was displayed in different projections or MIPs. In addition, multiple coronal oblique thin T2 weighted, fat saturated SE sequences obtained through the CBD. Comparison: Correlation made to abdominal ultrasound 08/29/2019 Findings: Evaluation degraded by patient motion. Within these limitations: Small gallstones noted within a nondistended gallbladder. No gallbladder wall thickening or pericholecystic inflammatory changes to suggest acute cholecystitis. No intrahepatic or extra hepatic biliary ductal dilatation. No evidence of choledocholithiasis. Pancreatic duct appears normal in caliber. Liver is enlarged measuring 19 cm in craniocaudal length. There is a bilobed uniformly T2 hyperintense lesion in the inferior right hepatic lobe most likely presenting a septated cyst. This measures approximately 2.5 cm in diameter. Septa are thin. No nodular septa are noted. Subcentimeter cyst in the hepatic dome. No evidence of signal dropout on chemical shift imaging to suggest significant hepatic steatosis. Hepatic contour appears smooth. Spleen is normal in size. Adrenal glands and pancreas unremarkable in appearance. There is mild to moderate left hydroureteronephrosis.. There is suggestion of a stone in the proximal left ureter. Probable Barrios catheter within the bladder. The rectum appears distended with stool in the possibility of a rectal fecal impaction is not excluded. There is a moderate-sized hiatal hernia. IMPRESSION: Limited exam due to patient motion. Within these limitations: * Cholelithiasis. No evidence to suggest acute cholecystitis. * No evidence of choledocholithiasis. No biliary ductal dilatation. * Mild hepatomegaly. No significant signal dropout on chemical shift imaging to suggest significant hepatic steatosis. * 2.5 cm septated cyst in the inferior right hepatic lobe. * Mild to moderate left hydronephrosis. Recommend further evaluation with CT to assess for obstructing ureteral stone. * Distention of the rectum with stool suggesting rectal fecal impaction. * Moderate hiatal hernia.
[2019-08-31] MEDS: Montelukast 10mg tablet ORAL SCH (17:17)
[2019-08-31] MEDS: cefTRIAXone 1 GM in D5W 50 ML IVPB SCH (17:20)
[2019-08-31] MEDS: HYDROcodone/Acetamin 5/325 tab ORAL PRN (17:26)
[2019-08-31 20:00] VITALS: BP 133/76
[2019-08-31] MEDS: TraZODone 100mg tab ORAL SCH (21:02)
[2019-08-31] MEDS: Atorvastatin 20mg tab ORAL SCH (21:03)
[2019-09-01] VITALS: BP 131/67
[2019-09-01 04:00] VITALS: BP 146/81
[2019-09-01 08:00] VITALS: BP 176/93
[2019-09-01 08:03] LABS: ALANINE AMINOTRANSFERASE 64 U/L (12-78); ALBUMIN 2.5 G/DL (3.4-5.0); ALBUMIN/GLOBULIN RATIO 0.5 (1.0-2.7); ALKALINE PHOSPHATASE 178 U/L (46-116); ANION GAP 7 mmol/L (5-15); ASPARTATE AMINO TRANSFERASE 27 U/L (15-37); BILIRUBIN,TOTAL 0.4 MG/DL (0.2-1.0); BLOOD UREA NITROGEN 9 mg/dL (7-18); CALCIUM 9.3 MG/DL (8.5-10.1); CARBON DIOXIDE 27 MMOL/L (21-32); CHLORIDE 107 MMOL/L (98-107); CREATININE 0.6 MG/DL (0.55-1.30); POTASSIUM 3.8 MMOL/L (3.5-5.1); SODIUM 141 MMOL/L (136-145)
[2019-09-01] MEDS: Ascorbic Acid 500mg tab ORAL SCH ×2 (09:00→11:05)
[2019-09-01] MEDS: Fleet's Enema 133ml RECTAL ONE ×2 (10:00→11:17)
--- NOTE | 2019-09-01 10:15 | General Progress Note ---
Assessment/Plan Problem List: (1) Back pain ICD Codes: M54.9 - Dorsalgia, unspecified SNOMED: 032304025 (2) Multiple sclerosis ICD Codes: G35 - Multiple sclerosis SNOMED: 93673724 Assessment/Plan: elevated LFTS hepatomegaly gallstones liver cyst improving LFTS ? medication related MRCP >>> reviewed repeat lfts neg hepatitis panel fu HIDA scan Subjective ROS Limited/Unobtainable: Yes Allergies: Coded Allergies: ACETAMINOPHEN (Unverified Allergy, Severe, Anaphylaxis, 08/27/19) per patient HYDROCODONE (Unverified Allergy, Severe, Anaphylaxis, 08/27/19) per patient MORPHINE (Unverified Allergy, Severe, Anaphylaxis, 08/27/19) per patient VANCOMYCIN (Verified Allergy, Intermediate, Itching, 08/26/19) With rash SULFA (SULFONAMIDE ANTIBIOTICS) (Verified Allergy, Unknown, 11/22/17) Subjective abd pain had BM Objective Last 24 Hour Vital Signs Date Time Temp Pulse Resp B/P (MAP) Pulse Ox O2 Delivery O2 Flow Rate FiO2 09/01/19 08:00 98.2 83 18 176/93 (120) 93 09/01/19 04:00 98.0 78 19 146/81 (102) 96 09/01/19 00:00 98.4 89 20 131/67 (88) 95 08/31/19 21:06 133/76 08/31/19 21:00 Room Air 08/31/19 20:00 98.6 71 20 133/76 (95) 95 08/31/19 16:00 98.8 91 19 148/88 (108) 97 08/31/19 12:00 98.7 101 20 154/94 (114) 96 Intake and Output 08/31/19 09/01/19 18:59 06:59 Intake Total 600 ml Output Total 1000 ml 650 ml Balance -400 ml -650 ml Intake Oral 600 ml Output Urine Total 1000 ml 650 ml # Bowel Movements 1 1 Laboratory Tests 09/01/19 05:30: Sodium Level 141, Potassium Level 3.8, Chloride Level 107, Carbon Dioxide Level 27, Anion Gap 7, Blood Urea Nitrogen 9, Creatinine 0.6, Estimat Glomerular Filtration Rate , Glucose Level 96, Calcium Level 9.3, Total Bilirubin 0.4, Aspartate Amino Transf (AST/SGOT) 27, Alanine Aminotransferase (ALT/SGPT) 64, Alkaline Phosphatase 178H, Total Protein 7.9, Albumin 2.5L, Globulin 5.4, Albumin/Globulin Ratio 0.5L Height (Feet): 5 Height (Inches): 8.00 Weight (Pounds): 234 General Appearance: confused EENT: normal ENT inspection Neck: supple Cardiovascular: normal rate Respiratory/Chest: decreased breath sounds Abdomen: normal bowel sounds, non tender, soft Extremities: non-tender Russel Wilson MD Sep 01, 2019 10:15
--- NOTE | 2019-09-01 10:56 | Pulmonology Progress Note ---
Assessment/Plan Assessment/Plan IMPRESSION: 1. Toxic metabolic encephalopathy, improved. 2. Recent Pseudomonas UTI. Has another UTI now; resistant to Cipro 3. Lower abdominal rash. 4. Multiple sclerosis. 5. Abnormal LFT's; no normal DISCUSSION: I suspect she may have had a drug reaction,possibly delayed to Cipro. I will continue other home medications. Seen by GI; workup in place for abn LFT's MRI abdomen normal Discussed with the patient. Seen by ID. On IV abx Bacteremia noted Abx adjustments per ID GI eval noted anticipate discharge home today on po abx Víctor Cheema M.D. Subjective Interval Events: no fever. Labs normal Constitutional: Reports: no symptoms HEENT: Repors: no symptoms Respiratory: Reports: no symptoms Cardiovascular: Reports: no symptoms Gastrointestinal/Abdominal: Reports: no symptoms Genitourinary: Reports: no symptoms Allergies: Coded Allergies: ACETAMINOPHEN (Unverified Allergy, Severe, Anaphylaxis, 08/27/19) per patient HYDROCODONE (Unverified Allergy, Severe, Anaphylaxis, 08/27/19) per patient MORPHINE (Unverified Allergy, Severe, Anaphylaxis, 08/27/19) per patient VANCOMYCIN (Verified Allergy, Intermediate, Itching, 08/26/19) With rash SULFA (SULFONAMIDE ANTIBIOTICS) (Verified Allergy, Unknown, 11/22/17) Objective Last 24 Hour Vital Signs Date Time Temp Pulse Resp B/P (MAP) Pulse Ox O2 Delivery O2 Flow Rate FiO2 09/01/19 08:00 98.2 83 18 176/93 (120) 93 09/01/19 04:00 98.0 78 19 146/81 (102) 96 09/01/19 00:00 98.4 89 20 131/67 (88) 95 08/31/19 21:06 133/76 08/31/19 21:00 Room Air 08/31/19 20:00 98.6 71 20 133/76 (95) 95 08/31/19 16:00 98.8 91 19 148/88 (108) 97 08/31/19 12:00 98.7 101 20 154/94 (114) 96 Intake and Output 08/31/19 09/01/19 19:00 07:00 Intake Total 600 ml Output Total 1000 ml 650 ml Balance -400 ml -650 ml Intake Oral 600 ml Output Urine Total 1000 ml 650 ml # Bowel Movements 1 1 General Appearance: no acute distress HEENT: normocephalic Respiratory/Chest: chest wall non-tender, lungs clear Cardiovascular: normal peripheral pulses Abdomen: normal bowel sounds Microbiology Date/Time Source Procedure Growth Status 08/30/19 17:20 Blood Blood Culture - Preliminary NO GROWTH AFTER 24 HOURS Resulted 08/30/19 17:05 Blood Blood Culture - Preliminary NO GROWTH AFTER 24 HOURS Resulted Laboratory Tests 09/01/19 05:30: Sodium Level 141, Potassium Level 3.8, Chloride Level 107, Carbon Dioxide Level 27, Anion Gap 7, Blood Urea Nitrogen 9, Creatinine 0.6, Estimat Glomerular Filtration Rate , Glucose Level 96, Calcium Level 9.3, Total Bilirubin 0.4, Aspartate Amino Transf (AST/SGOT) 27, Alanine Aminotransferase (ALT/SGPT) 64, Alkaline Phosphatase 178H, Total Protein 7.9, Albumin 2.5L, Globulin 5.4, Albumin/Globulin Ratio 0.5L Current Medications Medications (Trade) Dose Ordered Sig/Mj Route PRN Reason Start Time Stop Time Status Last Admin Dose Admin Acetaminophen/ Hydrocodone Bitart ([place] 5/325) 1 tab Q6H PRN ORAL Moderate Pain (Pain Scale 4-6) 08/25/19 19:15 09/01/19 18:29 08/31/19 17:26 Amlodipine Besylate (Norvasc) 5 mg DAILY ORAL 08/26/19 09:00 09/25/19 08:59 08/31/19 09:09 Ascorbic Acid (Vitamin C) 500 mg DAILY ORAL 08/26/19 09:00 09/25/19 08:59 08/31/19 09:08 Atorvastatin Calcium (Lipitor) 40 mg BEDTIME ORAL 08/25/19 21:00 09/24/19 20:59 08/31/19 21:03 Baclofen (Lioresal) 10 mg BID@0900,1500 ORAL 08/29/19 09:00 09/28/19 08:59 08/31/19 15:46 Baclofen (Lioresal) 10 mg QHS ORAL 08/28/19 21:00 1/22/20 20:59 08/31/19 21:02 Bisacodyl (Dulcolax) 10 mg DAILYPRN PRN RECTAL Constipation 08/25/19 16:45 09/24/19 16:44 Ceftriaxone Sodium 1 gm/ Dextrose 50 ml @ 100 mls/hr Q24H IVPB 08/30/19 18:00 09/06/19 17:59 08/31/19 17:20 Diphenhydramine HCl (Benadryl) 25 mg Q12H PRN IVP Itching 08/26/19 17:45 09/25/19 17:44 08/27/19 12:11 Docusate Sodium (Colace) 100 mg TWICE A DAY ORAL 09/01/19 18:00 10/01/19 17:59 Ferrous Sulfate (Feosol) 325 mg DAILY ORAL 08/26/19 09:00 09/25/19 08:59 08/31/19 09:06 Heparin Sodium (Porcine) (Heparin 5000 units/ml) 5,000 units EVERY 12 HOURS SUBQ 08/25/19 21:00 09/24/19 20:59 08/31/19 21:10 Lactulose (Cephulac) 10 gm THREE TIMES A DAY ORAL 09/01/19 13:00 10/01/19 12:59 Lidocaine (Lidoderm 5% PATCH) 2 patch DAILY TDERMAL 08/25/19 09:00 09/24/19 08:59 08/31/19 09:12 Linezolid (Zyvox) 600 mg EVERY 12 HOURS ORAL 08/29/19 21:00 09/03/19 20:59 08/31/19 21:03 Lisinopril (PriniviL) 20 mg Q12HR ORAL 08/25/19 21:00 09/24/19 20:59 08/31/19 21:06 Metformin HCl (Glucophage) 500 mg TWICE A DAY ORAL 08/25/19 18:00 09/24/19 17:59 08/30/19 17:16 Montelukast Sodium (Singulair) 10 mg QPM ORAL 08/26/19 16:30 09/25/19 16:29 08/31/19 17:17 Morphine Sulfate (Morphine Sulfate) 0.5 mg Q4H PRN IVP Severe Pain (Pain Scale 7-10) 08/25/19 19:00 09/01/19 18:59 Non-Formulary Medication (Non-Formulary Med) 1 ea EVERY OTHER DAY SUBQ 09/03/19 09:00 10/03/19 08:59 UNV Pantoprazole (Protonix) 40 mg DAILY ORAL 08/29/19 09:00 09/28/19 08:59 08/31/19 09:07 Polyethylene Glycol (Miralax) 17 gm DAILYPRN PRN ORAL Constipation 08/25/19 16:45 09/24/19 16:44 Tizanidine HCl (Zanaflex) 4 mg BID@0900,1500 ORAL 08/29/19 09:00 09/28/19 08:59 08/30/19 14:46 Tizanidine HCl (Zanaflex) 4 mg QHS ORAL 08/28/19 21:00 09/27/19 20:59 08/31/19 21:04 Trazodone HCl (Desyrel) 100 mg BEDTIME ORAL 08/25/19 21:00 09/24/19 20:59 08/31/19 21:02 Zinc Sulfate (Zinc Sulfate) 220 mg DAILY ORAL 08/26/19 09:00 09/25/19 08:59 08/31/19 09:08 Víctor Cheema MD Sep 01, 2019 10:56
[2019-09-01] MEDS: Zinc Sulfate 220mg cap ORAL SCH (11:04)
[2019-09-01] MEDS: metFORMIN 500mg tab ORAL SCH ×2 (11:05→17:06)
[2019-09-01] MEDS: Lisinopril 20mg tab ORAL SCH ×2 (11:05→21:00)
[2019-09-01] MEDS: Heparin 5000 units/ml inj SUBQ SCH ×2 (11:09→21:00)
[2019-09-01 12:00] VITALS: BP 187/109
[2019-09-01] MEDS: Lactulose 10gm/15ml UDC ORAL SCH ×2 (12:52→17:04)
[2019-09-01] MEDS ORDERED: BETASERON 0.3 MG SUBQ SCH (15:00)
--- NOTE | 2019-09-01 15:16 | Infectious Diseases Prog Note ---
Assessment/Plan Assessment/Plan ASSESSMENT AND PLAN: 1. 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 sepsis, ? aspiration pna/hcap vs atx, rash - vancomycin and ? cipro elevated lft's - ? doxycycline which was discontinued, GI w/u for cholecystitis with hida scan, viral hepatitis panel ordered chest x-ray now with pulmonary edema now - ceftriaxone and zyvox - day # 7/10 abx - can discharge on po macrobid and zyvox to complete course - echo without vegetation mentioned, surveillance blood cultures negative - GI work up in progress, lft's better off doxycycline - rash stable - communicated with Dr. Cheema 2. Hyperlipidemia. 3. Multiple sclerosis. 4. Paraplegia. 5. Catheter. 6. Wound care protocol. Wounds do not look acutely infected. 7. Diabetes. 8. Hypertension. 9. CHF. 10. Blood sugar and blood pressure treatment per primary care team for diabetes and hypertension. 11. Allergies to sulfa drugs - possible vancomycin and cipro allergies with rash 12. Social history negative. 13. Family history noncontributory. 14. MAR was noted. 15. Case discussed with RN. 16. Continue treatment per primary consultants. 17. Notes and records were noted. Orders were entered. Subjective Constitutional: Denies: fever HEENT: Denies: congestion Respiratory: Denies: shortness of breath Cardiovascular: Denies: chest pain Gastrointestinal/Abdominal: Denies: nausea, vomiting, diarrhea Genitourinary: Reports: other - + weber Neurologic: Denies: headache Psychiatric: Denies: depression Skin: Denies: rash Hematologic: Denies: bleeding Musculoskeletal: Denies: pain Allergies: Coded Allergies: ACETAMINOPHEN (Unverified Allergy, Severe, Anaphylaxis, 08/27/19) per patient HYDROCODONE (Unverified Allergy, Severe, Anaphylaxis, 08/27/19) per patient MORPHINE (Unverified Allergy, Severe, Anaphylaxis, 08/27/19) per patient VANCOMYCIN (Verified Allergy, Intermediate, Itching, 08/26/19) With rash SULFA (SULFONAMIDE ANTIBIOTICS) (Verified Allergy, Unknown, 11/22/17) Objective Vital Signs Last 24 Hour Vital Signs Date Time Temp Pulse Resp B/P (MAP) Pulse Ox O2 Delivery O2 Flow Rate FiO2 09/01/19 13:29 177/80 09/01/19 12:00 97.4 87 18 187/109 (135) 95 09/01/19 11:05 176/93 09/01/19 11:04 83 176/93 09/01/19 09:00 Room Air 09/01/19 08:00 98.2 83 18 176/93 (120) 93 09/01/19 04:00 98.0 78 19 146/81 (102) 96 09/01/19 00:00 98.4 89 20 131/67 (88) 95 08/31/19 21:06 133/76 08/31/19 21:00 Room Air 08/31/19 20:00 98.6 71 20 133/76 (95) 95 08/31/19 16:00 98.8 91 19 148/88 (108) 97 Height (Feet): 5 Height (Inches): 8.00 Weight (Pounds): 234 General Appearance: no acute distress HEENT: normocephalic, atraumatic, anicteric, mucous membranes moist Respiratory/Chest: lungs clear, normal breath sounds, no respiratory distress, no accessory muscle use Cardiovascular: normal rate, regular rhythm, no gallop/murmur, no JVD Abdomen: normal bowel sounds, soft, non tender, no organomegaly, non distended Genitourinary: other - + weber - urine slt cloudy Extremities: no cyanosis Skin: no rash 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 Chest x-ray - 08/30/19 - Procedure: XRAY Chest 1v EXAM: XR Chest, 1 View CLINICAL HISTORY: INFECT TECHNIQUE: Frontal view of the chest. COMPARISON: 08/27/19 FINDINGS: Limitations: Patient's left hand obscures left middle and lower lung zone. Underpenetration related patient's large body habitus also decreases sensitivity of this exam. Patient rotated to the left. Lungs: Mild diffuse interstitial opacities in both lungs, suggest mild pulmonary edema. Cannot rule out small consolidation of left middle and lower lungs due to overlying left hand Pleural space: Unremarkable. No pneumothorax. Heart: Unremarkable. No cardiomegaly. Mediastinum: Unremarkable. Bones/joints: Osteopenia. Mild degenerative changes. IMPRESSION: Mild diffuse interstitial opacities in both lungs, suggest mild pulmonary edema. Microbiology Date/Time Source Procedure Growth Status 08/30/19 17:20 Blood Blood Culture - Preliminary NO GROWTH AFTER 24 HOURS Resulted 08/25/19 08:40 Nasal Nares MRSA Culture - Final NO METHICILLIN RESISTANT STAPH AUREUS... Complete 08/25/19 09:00 Urine,Clean Catch Urine Culture - Final Escherichia Coli Complete 08/25/19 08:40 Rectum VRE Culture - Final NO VANCOMYCIN RESISTANT ENTEROCOCCUS ... Complete Microbiology Date/Time Source Procedure Growth Status 08/30/19 17:20 Blood Blood Culture - Preliminary NO GROWTH AFTER 24 HOURS Resulted 08/30/19 17:05 Blood Blood Culture - Preliminary NO GROWTH AFTER 24 HOURS Resulted Labs Test 08/30/19 05:11 08/30/19 13:25 08/31/19 08:30 09/01/19 05:30 White Blood Count 5.8 K/UL (4.8-10.8) 6.2 K/UL (4.8-10.8) Red Blood Count 4.28 M/UL (4.20-5.40) 4.71 M/UL (4.20-5.40) Hemoglobin 11.9 G/DL (12.0-16.0) 13.0 G/DL (12.0-16.0) Hematocrit 36.5 % (37.0-47.0) 40.3 % (37.0-47.0) Mean Corpuscular Volume 85 FL (80-99) 86 FL (80-99) Mean Corpuscular Hemoglobin 27.7 PG (27.0-31.0) 27.6 PG (27.0-31.0) Mean Corpuscular Hemoglobin Concent 32.4 G/DL (32.0-36.0) 32.3 G/DL (32.0-36.0) Red Cell Distribution Width 16.0 % (11.6-14.8) 16.4 % (11.6-14.8) Platelet Count 326 K/UL (150-450) 315 K/UL (150-450) Mean Platelet Volume 7.2 FL (6.5-10.1) 7.3 FL (6.5-10.1) Neutrophils (%) (Auto) 55.0 % (45.0-75.0) 72.1 % (45.0-75.0) Lymphocytes (%) (Auto) 23.0 % (20.0-45.0) 19.1 % (20.0-45.0) Monocytes (%) (Auto) 14.4 % (1.0-10.0) 6.3 % (1.0-10.0) Eosinophils (%) (Auto) 3.1 % (0.0-3.0) 1.7 % (0.0-3.0) Basophils (%) (Auto) 4.5 % (0.0-2.0) 0.8 % (0.0-2.0) Sodium Level 140 MMOL/L (136-145) 140 MMOL/L (136-145) 141 MMOL/L (136-145) Potassium Level 3.8 MMOL/L (3.5-5.1) 3.7 MMOL/L (3.5-5.1) 3.8 MMOL/L (3.5-5.1) Chloride Level 104 MMOL/L (98-107) 106 MMOL/L (98-107) 107 MMOL/L (98-107) Carbon Dioxide Level 26 MMOL/L (21-32) 27 MMOL/L (21-32) 27 MMOL/L (21-32) Anion Gap 11 mmol/L (5-15) 7 mmol/L (5-15) 7 mmol/L (5-15) Blood Urea Nitrogen 14 mg/dL (7-18) 11 mg/dL (7-18) 9 mg/dL (7-18) Creatinine 0.6 MG/DL (0.55-1.30) 0.6 MG/DL (0.55-1.30) 0.6 MG/DL (0.55-1.30) Estimat Glomerular Filtration Rate mL/min (>60) mL/min (>60) mL/min (>60) Glucose Level 88 MG/DL (74-106) 89 MG/DL (74-106) 96 MG/DL (74-106) Calcium Level 9.1 MG/DL (8.5-10.1) 9.2 MG/DL (8.5-10.1) 9.3 MG/DL (8.5-10.1) Total Bilirubin 0.5 MG/DL (0.2-1.0) 0.4 MG/DL (0.2-1.0) 0.4 MG/DL (0.2-1.0) Aspartate Amino Transf (AST/SGOT) 71 U/L (15-37) 40 U/L (15-37) 27 U/L (15-37) Alanine Aminotransferase (ALT/SGPT) 124 U/L (12-78) 96 U/L (12-78) 64 U/L (12-78) Alkaline Phosphatase 183 U/L (46-116) 183 U/L (46-116) 178 U/L (46-116) Total Protein 8.1 G/DL (6.4-8.2) 8.3 G/DL (6.4-8.2) 7.9 G/DL (6.4-8.2) Albumin 2.6 G/DL (3.4-5.0) 2.7 G/DL (3.4-5.0) 2.5 G/DL (3.4-5.0) Globulin 5.5 g/dL 5.6 g/dL 5.4 g/dL Albumin/Globulin Ratio 0.5 (1.0-2.7) 0.5 (1.0-2.7) 0.5 (1.0-2.7) Stool Occult Blood Negative (NEGATIVE) Laboratory Tests Test 09/01/19 05:30 Sodium Level 141 MMOL/L (136-145) Potassium Level 3.8 MMOL/L (3.5-5.1) Chloride Level 107 MMOL/L (98-107) Carbon Dioxide Level 27 MMOL/L (21-32) Anion Gap 7 mmol/L (5-15) Blood Urea Nitrogen 9 mg/dL (7-18) Creatinine 0.6 MG/DL (0.55-1.30) Estimat Glomerular Filtration Rate mL/min (>60) Glucose Level 96 MG/DL (74-106) Calcium Level 9.3 MG/DL (8.5-10.1) Total Bilirubin 0.4 MG/DL (0.2-1.0) Aspartate Amino Transf (AST/SGOT) 27 U/L (15-37) Alanine Aminotransferase (ALT/SGPT) 64 U/L (12-78) Alkaline Phosphatase 178 U/L (46-116) H Total Protein 7.9 G/DL (6.4-8.2) Albumin 2.5 G/DL (3.4-5.0) L Globulin 5.4 g/dL Albumin/Globulin Ratio 0.5 (1.0-2.7) L Current Medications Medications (Trade) Dose Ordered Sig/Mj Route PRN Reason Start Time Stop Time Status Last Admin Dose Admin Acetaminophen/ Hydrocodone Bitart ([place] 5/325) 1 tab Q6H PRN ORAL Moderate Pain (Pain Scale 4-6) 08/25/19 19:15 09/01/19 18:29 08/31/19 17:26 Amlodipine Besylate (Norvasc) 5 mg DAILY ORAL 08/26/19 09:00 09/25/19 08:59 09/01/19 11:04 Ascorbic Acid (Vitamin C) 500 mg DAILY ORAL 08/26/19 09:00 09/25/19 08:59 08/31/19 09:08 Atorvastatin Calcium (Lipitor) 40 mg BEDTIME ORAL 08/25/19 21:00 09/24/19 20:59 08/31/19 21:03 Baclofen (Lioresal) 10 mg BID@0900,1500 ORAL 08/29/19 09:00 09/28/19 08:59 09/01/19 11:04 Baclofen (Lioresal) 10 mg QHS ORAL 08/28/19 21:00 09/27/19 20:59 08/31/19 21:02 Bisacodyl (Dulcolax) 10 mg DAILYPRN PRN RECTAL Constipation 08/25/19 16:45 09/24/19 16:44 Ceftriaxone Sodium 1 gm/ Dextrose 50 ml @ 100 mls/hr Q24H IVPB 08/30/19 18:00 09/06/19 17:59 08/31/19 17:20 Clonidine HCl (Catapres Tab) 0.1 mg Q4H PRN ORAL SBP > 150mmHg 09/01/19 13:15 10/01/19 13:14 09/01/19 13:29 Diphenhydramine HCl (Benadryl) 25 mg Q12H PRN IVP Itching 08/26/19 17:45 09/25/19 17:44 08/27/19 12:11 Docusate Sodium (Colace) 100 mg TWICE A DAY ORAL 09/01/19 18:00 10/01/19 17:59 Ferrous Sulfate (Feosol) 325 mg DAILY ORAL 08/26/19 09:00 09/25/19 08:59 09/01/19 11:04 Heparin Sodium (Porcine) (Heparin 5000 units/ml) 5,000 units EVERY 12 HOURS SUBQ 08/25/19 21:00 09/24/19 20:59 09/01/19 11:09 Lactulose (Cephulac) 10 gm THREE TIMES A DAY ORAL 09/01/19 13:00 10/01/19 12:59 09/01/19 12:52 Lidocaine (Lidoderm 5% PATCH) 2 patch DAILY TDERMAL 08/25/19 09:00 09/24/19 08:59 08/31/19 09:12 Linezolid (Zyvox) 600 mg EVERY 12 HOURS ORAL 08/29/19 21:00 09/03/19 20:59 09/01/19 11:05 Lisinopril (PriniviL) 20 mg Q12HR ORAL 08/25/19 21:00 09/24/19 20:59 09/01/19 11:05 Metformin HCl (Glucophage) 500 mg TWICE A DAY ORAL 08/25/19 18:00 09/24/19 17:59 09/01/19 11:05 Montelukast Sodium (Singulair) 10 mg QPM ORAL 08/26/19 16:30 09/25/19 16:29 08/31/19 17:17 Morphine Sulfate (Morphine Sulfate) 0.5 mg Q4H PRN IVP Severe Pain (Pain Scale 7-10) 08/25/19 19:00 09/01/19 18:59 Pantoprazole (Protonix) 40 mg DAILY ORAL 08/29/19 09:00 09/28/19 08:59 09/01/19 11:04 Patient Own Medication (Patient's Own Med) 1 ea QOD SUBQ 09/01/19 15:00 10/01/19 14:59 Polyethylene Glycol (Miralax) 17 gm DAILYPRN PRN ORAL Constipation 08/25/19 16:45 09/24/19 16:44 Tizanidine HCl (Zanaflex) 4 mg BID@0900,1500 ORAL 08/29/19 09:00 09/28/19 08:59 08/30/19 14:46 Tizanidine HCl (Zanaflex) 4 mg QHS ORAL 08/28/19 21:00 09/27/19 20:59 08/31/19 21:04 Trazodone HCl (Desyrel) 100 mg BEDTIME ORAL 08/25/19 21:00 09/24/19 20:59 08/31/19 21:02 Zinc Sulfate (Zinc Sulfate) 220 mg DAILY ORAL 08/26/19 09:00 09/25/19 08:59 09/01/19 11:04 Carroll Miller MD Sep 01, 2019 15:16
--- NOTE | 2019-09-01 15:45 | Diagnostic Imaging Report ---
Indication: Abdominal Pain Technique: 6 mCi of technetium 99 m-Choletec was injected intravenously. Planar imaging of the abdomen was then performed every 5 minutes up to 30 minutes and every 10 minutes up to one hour. Oblique views were also obtained. Findings: There is prompt uptake within the liver with good washout of radiotracer from the liver on subsequent imaging. There is excretion into the biliary ducts. Gallbladder activity is present in a timely fashion indicating patency of the cystic duct. Bowel activity is demonstrated in a timely fashion indicating patency of the common bile duct. Impression: Normal HIDA scan
[2019-09-01 16:00] VITALS: BP 150/76
[2019-09-01] MEDS: Montelukast 10mg tablet ORAL SCH (16:30)
[2019-09-01] MEDS: Docusate 100mg cap ORAL SCH (17:05)
[2019-09-01] MEDS: cefTRIAXone 1 GM in D5W 50 ML IVPB SCH (17:05)
[2019-09-01 20:00] VITALS: BP 176/93
[2019-09-01] MEDS: Atorvastatin 20mg tab ORAL SCH (20:59)
[2019-09-01] MEDS: TraZODone 100mg tab ORAL SCH (21:06)
[2019-09-02 00:02] VITALS: BP 100/65
[2019-09-02 04:00] VITALS: BP 144/89
[2019-09-02 06:03] LABS: BASOPHILS % (AUTO) 1.8 % (0.0-2.0); EOSINOPHILS % (AUTO) 2.2 % (0.0-3.0); HEMATOCRIT 37.3 % (37.0-47.0); HEMOGLOBIN 12.3 G/DL (12.0-16.0); LYMPHOCYTES % (AUTO) 19.1 % (20.0-45.0); MEAN CORPUSCULAR VOLUME 85 FL (80-99); MONOCYTES % (AUTO) 9.9 % (1.0-10.0); PLATELET COUNT 323 K/UL (150-450); RED BLOOD COUNT 4.37 M/UL (4.20-5.40); RED CELL DISTRIBUTION WIDTH 16.4 % (11.6-14.8); WHITE BLOOD COUNT 6.5 K/UL (4.8-10.8)
[2019-09-02 06:18] LABS: ALANINE AMINOTRANSFERASE 64 U/L (12-78); ALBUMIN 2.6 G/DL (3.4-5.0); ALBUMIN/GLOBULIN RATIO 0.5 (1.0-2.7); ALKALINE PHOSPHATASE 182 U/L (46-116); ANION GAP 8 mmol/L (5-15); ASPARTATE AMINO TRANSFERASE 36 U/L (15-37); BILIRUBIN,TOTAL 0.4 MG/DL (0.2-1.0); BLOOD UREA NITROGEN 9 mg/dL (7-18); CALCIUM 8.8 MG/DL (8.5-10.1); CARBON DIOXIDE 27 MMOL/L (21-32); CHLORIDE 106 MMOL/L (98-107); CREATININE 0.6 MG/DL (0.55-1.30); POTASSIUM 3.7 MMOL/L (3.5-5.1); SODIUM 141 MMOL/L (136-145)
--- NOTE | 2019-09-02 07:38 | General Progress Note ---
Assessment/Plan Problem List: (1) Back pain ICD Codes: M54.9 - Dorsalgia, unspecified SNOMED: 524420504 (2) Multiple sclerosis ICD Codes: G35 - Multiple sclerosis SNOMED: 46908643 Assessment/Plan: elevated LFTS hepatomegaly gallstones liver cyst improving LFTS ? medication related MRCP >>> reviewed repeat lfts neg hepatitis panel fu HIDA scan>>> neg stool ob neg ok to dc GI stand point Subjective Allergies: Coded Allergies: ACETAMINOPHEN (Unverified Allergy, Severe, Anaphylaxis, 08/27/19) per patient HYDROCODONE (Unverified Allergy, Severe, Anaphylaxis, 08/27/19) per patient MORPHINE (Unverified Allergy, Severe, Anaphylaxis, 08/27/19) per patient VANCOMYCIN (Verified Allergy, Intermediate, Itching, 08/26/19) With rash SULFA (SULFONAMIDE ANTIBIOTICS) (Verified Allergy, Unknown, 11/22/17) Subjective abd pain had BM Objective Last 24 Hour Vital Signs Date Time Temp Pulse Resp B/P (MAP) Pulse Ox O2 Delivery O2 Flow Rate FiO2 09/02/19 04:00 98.4 100 16 144/89 (107) 97 09/02/19 00:02 98.2 85 16 100/65 (77) 96 09/01/19 21:00 Room Air 09/01/19 21:00 176/93 09/01/19 20:00 98.2 83 18 176/93 (120) 94 09/01/19 16:00 99.8 80 18 150/76 (100) 95 09/01/19 13:29 177/80 09/01/19 12:00 97.4 87 18 187/109 (135) 95 09/01/19 11:05 176/93 09/01/19 11:04 83 176/93 09/01/19 09:00 Room Air 09/01/19 08:00 98.2 83 18 176/93 (120) 93 Intake and Output 09/01/19 09/02/19 19:00 07:00 Output Total 500 ml 300 ml Balance -500 ml -300 ml Output Urine Total 500 ml 300 ml Laboratory Tests 09/02/19 05:35: White Blood Count 6.5, Red Blood Count 4.37, Hemoglobin 12.3, Hematocrit 37.3, Mean Corpuscular Volume 85, Mean Corpuscular Hemoglobin 28.2, Mean Corpuscular Hemoglobin Concent 33.1, Red Cell Distribution Width 16.4H, Platelet Count 323, Mean Platelet Volume 6.6, Neutrophils (%) (Auto) 67.0, Lymphocytes (%) (Auto) 19.1L, Monocytes (%) (Auto) 9.9, Eosinophils (%) (Auto) 2.2, Basophils (%) (Auto ) 1.8, Sodium Level 141, Potassium Level 3.7, Chloride Level 106, Carbon Dioxide Level 27, Anion Gap 8, Blood Urea Nitrogen 9, Creatinine 0.6, Estimat Glomerular Filtration Rate , Glucose Level 105, Calcium Level 8.8, Total Bilirubin 0.4, Aspartate Amino Transf (AST/SGOT) 36, Alanine Aminotransferase ( ALT/SGPT) 64, Alkaline Phosphatase 182H, Total Protein 7.8, Albumin 2.6L, Globulin 5.2, Albumin/Globulin Ratio 0.5L Height (Feet): 5 Height (Inches): 8.00 Weight (Pounds): 234 General Appearance: alert EENT: normal ENT inspection Neck: supple Cardiovascular: normal rate Respiratory/Chest: decreased breath sounds Abdomen: normal bowel sounds, non tender, soft Extremities: non-tender Russel Wilson MD Sep 02, 2019 07:38
[2019-09-02 08:00] VITALS: BP 147/88
[2019-09-02] MEDS: metFORMIN 500mg tab ORAL SCH (09:00)
[2019-09-02] MEDS: Lactulose 10gm/15ml UDC ORAL SCH ×2 (09:43→13:00)
[2019-09-02] MEDS: Heparin 5000 units/ml inj SUBQ SCH (09:44)
[2019-09-02] MEDS: Docusate 100mg cap ORAL SCH (09:45)
[2019-09-02] MEDS: Zinc Sulfate 220mg cap ORAL SCH (09:46)
[2019-09-02] MEDS: Ascorbic Acid 500mg tab ORAL SCH (09:46)
[2019-09-02] MEDS: Lisinopril 20mg tab ORAL SCH (09:48)
[2019-09-02 12:00] VITALS: BP 143/79
--- NOTE | 2019-09-02 13:00 | Nephrology Progress Note ---
Assessment/Plan Assessment/Plan: A/P 1. Toxic metabolic encephalopathy- resolved 2. Recent Pseudomonas UTI. - zyvoxx and macrobid rx written 3. Lower abdominal rash. Not infected 4. Multiple sclerosis. Dc home today with caregiver Subjective Date patient seen: Sep 02, 2019 Time patient seen: 12:58 ROS Limited/Unobtainable: No Allergies: Coded Allergies: ACETAMINOPHEN (Unverified Allergy, Severe, Anaphylaxis, 08/27/19) per patient HYDROCODONE (Unverified Allergy, Severe, Anaphylaxis, 08/27/19) per patient MORPHINE (Unverified Allergy, Severe, Anaphylaxis, 08/27/19) per patient VANCOMYCIN (Verified Allergy, Intermediate, Itching, 08/26/19) With rash SULFA (SULFONAMIDE ANTIBIOTICS) (Verified Allergy, Unknown, 11/22/17) Subjective Patient much improved and set for DC today Objective Last 24 Hour Vital Signs Date Time Temp Pulse Resp B/P (MAP) Pulse Ox O2 Delivery O2 Flow Rate FiO2 09/02/19 12:00 98.2 91 17 143/79 (100) 94 09/02/19 09:48 147/88 09/02/19 09:46 108 147/88 09/02/19 09:00 Room Air 09/02/19 08:00 98.4 108 18 147/88 (107) 94 09/02/19 04:00 98.4 100 16 144/89 (107) 97 09/02/19 00:02 98.2 85 16 100/65 (77) 96 09/01/19 21:00 Room Air 09/01/19 21:00 176/93 09/01/19 20:00 98.2 83 18 176/93 (120) 94 09/01/19 16:00 99.8 80 18 150/76 (100) 95 09/01/19 13:29 177/80 Intake and Output 09/01/19 09/02/19 19:00 07:00 Output Total 500 ml 300 ml Balance -500 ml -300 ml Output Urine Total 500 ml 300 ml Laboratory Tests 09/02/19 05:35: White Blood Count 6.5, Red Blood Count 4.37, Hemoglobin 12.3, Hematocrit 37.3, Mean Corpuscular Volume 85, Mean Corpuscular Hemoglobin 28.2, Mean Corpuscular Hemoglobin Concent 33.1, Red Cell Distribution Width 16.4H, Platelet Count 323, Mean Platelet Volume 6.6, Neutrophils (%) (Auto) 67.0, Lymphocytes (%) (Auto) 19.1L, Monocytes (%) (Auto) 9.9, Eosinophils (%) (Auto) 2.2, Basophils (%) (Auto ) 1.8, Sodium Level 141, Potassium Level 3.7, Chloride Level 106, Carbon Dioxide Level 27, Anion Gap 8, Blood Urea Nitrogen 9, Creatinine 0.6, Estimat Glomerular Filtration Rate , Glucose Level 105, Calcium Level 8.8, Total Bilirubin 0.4, Aspartate Amino Transf (AST/SGOT) 36, Alanine Aminotransferase ( ALT/SGPT) 64, Alkaline Phosphatase 182H, Total Protein 7.8, Albumin 2.6L, Globulin 5.2, Albumin/Globulin Ratio 0.5L Height (Feet): 5 Height (Inches): 8.00 Weight (Pounds): 234 General Appearance: no apparent distress, alert EENT: normal ENT inspection Neck: normal alignment, supple Cardiovascular: normal rate, regular rhythm Respiratory/Chest: lungs clear, normal breath sounds Abdomen: non tender, soft Edema: no edema noted Arm (L), no edema noted Arm (R), no edema noted Leg (L), no edema noted Leg (R), no edema noted Pedal (L), no edema noted Pedal (R), no edema noted Generalized Lefty Quintanilla MD Sep 02, 2019 13:00
--- NOTE | 2019-09-04 08:31 | Discharge Summary ---
Discharge Summary Discharge Summary _ DATE OF ADMISSION: 08/25/2019 DATE OF DISCHARGE: 09/02/2019 DISCHARGED BY: Dr. Cheema REASON FOR ADMISSION: 74 years old female with past medical history of multiple sclerosis, paraplegia , diabetes mellitus, hypertension, hyperlipidemia, obesity, recent Pseudomonas UTI, bedbound status, presented with episode of hallucination. Patient was discharged from the hospital last week with diagnosis of Pseudomonas UTI . Patient was discharged on antibiotic/Ciprofloxacin. Patient reported that in the past she had a reaction to Cipro, but that was many years ago . Patient also found to have not itchy , not painful rash over her lower abdomen . Patient had a suprapubic catheter in place. Upon evaluation vital signs were stable. Laboratory work-up revealed no leukocytosis, stable hemoglobin , hematocrit and platelet count. Stable electrolytes and renal parameters. Glucose 91. Stable LFT. Albumin 3.0. Urinalysis revealed evidence of pyuria and moderate bacteria. Ammonia level was less than 10. The patient underwent lumbar and thoracic spine MRI, which showed only degenerative changes and no other pathology was reported. Patient subsequently admitted to medical surgical floor for further management CONSULTANTS: ID specialist Dr. Miller GI specialist Dr. Wilson [facility]SE: Patient admitted to the hospital. Cipro was discontinued. Patient started on empiric Zosyn. Other home medications were continued. ID specialist followed. Blood culture initially revealed Staph epidermidis. Urine culture revealed E. coli. Repeated blood culture on 08/27 and 08/30 were negative. Chest x-ray revealed left basilar opacity , possibly representing atelectasis versus pneumonia. Per ID specialist patient was treated with antibiotics for possible aspiration pneumonia/healthcare associated pneumonia versus atelectasis. Patient received 7 days of ceftriaxone and Zyvox while in the hospital. Rash was possibly due to prior vancomycin and possible Cipro. ID specialist recommended to discharge on Macrobid and Zyvox to complete the course. Patient noted to have elevated LFTs Doxycycline was discontinued. GI specialist followed. Abdominal ultrasound revealed hepatomegaly , trace ascites , suspected nonobstructing stone in the left kidney . Cholelithiasis. Trace ascites. HIDA scan was negative. Abdominal MRI revealed cholelithiasis , but no evidence to suggest acute cholecystitis. No evidence of choledocholithiasis. No biliary ductal dilatation. Mild hepatomegaly. Mild to moderate left hydronephrosis. Distention of the rectum with stool suggesting rectal fecal impaction. Moderate hiatal hernia. LFTs were clsoely monitored and started trending down : AST from high 100 down to 36 , ALT from high 140 down to 64. Total bilirubin stable. Hepatitis panel was negative. Stool for occult blood was negative. Hemoglobin and hematocrit remained stable. Prior to discharge hemoglobin 12.3 hematocrit 27.3. According to GI specialist elevated LFTs were possibly medication related . All work-up was negative. GI specialist cleared patient for discharge. Patient clinically stabilized and was ready for discharge home. FINAL DIAGNOSES: Toxic metabolic encephalopathy-improved E. coli UTI Staph epidermidis bacteremia Possible sepsis Possible aspiration pneumonia versus healthcare associated pneumonia Recent Pseudomonas UTI Abdominal rash/due to vanco and possible Cipro Multiple sclerosis Elevated LFT-resolved Hepatomegaly Gallstones Liver disease Paraplegia Suprapubic catheter Hypertension Diabetes mellitus DISCHARGE MEDICATIONS: See Medication Reconciliation list. DISCHARGE INSTRUCTIONS: Patient was discharged home. Follow-up with primary care provider in 1 week. I have been assigned to dictate discharge summary for this account. I was not involved in the patient's management. Katie Thornton NP Sep 04, 2019 08:31
== END 2019-09-02 15:40 | disposition home or self-care (01) | DRG 871 ==
LOC: EDBD 07:37 → EMR 08:00 → EDBEDREQ 13:39 → 4E 13:51 → EDBEDREQ 13:58
DX: A41.9 Sepsis, unspecified organism (principal); G92 Toxic encephalopathy; J69.0 Pneumonitis due to inhalation of food and vomit; N39.0 Urinary tract infection, site not specified; G82.20 Paraplegia, unspecified; N13.30 Unspecified hydronephrosis; G35 Multiple sclerosis; I10 Essential (primary) hypertension; E78.5 Hyperlipidemia, unspecified; B96.20 Unspecified Escherichia coli [E. coli] as the cause of diseases classified elsewhere; L27.1 Localized skin eruption due to drugs and medicaments taken internally; T36.8X5A Adverse effect of other systemic antibiotics, initial encounter; Z88.6 Allergy status to analgesic agent; Z88.1 Allergy status to other antibiotic agents; Z88.2 Allergy status to sulfonamides; E66.9 Obesity, unspecified; K80.20 Calculus of gallbladder without cholecystitis without obstruction; K44.9 Diaphragmatic hernia without obstruction or gangrene; Z93.51 Cutaneous-vesicostomy status; K76.9 Liver disease, unspecified; E11.9 Type 2 diabetes mellitus without complications; M24.50 Contracture, unspecified joint; B95.7 Other staphylococcus as the cause of diseases classified elsewhere; R44.1 Visual hallucinations
CPT/HCPCS: 36415; 71045; 72157; 72158; 74181; 76700; 78266; 80053; 81003; 82140; 82270; 82962; 83880; 85025; 86705; 86709; 86803; 87040; 87081; 87086; 87181; 87340; 93306; 96365; 99285; A9585; J3490; J8499